=== PATIENT | female | born 1945 | race Caucasian/White ===

== ENCOUNTER 2016-06-27 03:59 | Inpatient (IN) | payer MEDICARE ==
[2016-06-27] MEDS ORDERED: IPRATROPIUM-ALBUTEROL 3 ML NEB INHALATION STA (04:19)
[2016-06-27] MEDS ORDERED: ACETAMINOPHEN TAB 325 MG TAB PO STA ×2 (05:19→06:16)
[2016-06-27] MEDS ORDERED: LEVOFLOXACIN 750MG-D5W PMX 750 MG in DEXTROSE/WATER 1 150ML.BAG IVPB STA (05:19)
--- NOTE | 2016-06-27 05:23 | ED ---
SOB HPI - General Chief Complaint: Shortness of Breath Stated Complaint: Vomiting/Dizziness/SOB Time Seen by Provider: 06/27/16 04:06 Source: patient, EMS, RN notes reviewed Mode of arrival: EMS Limitations: no limitations - History of Present Illness Initial Comments: This patient is a 70-year-old woman who presents to the emergency department tonight in the accompany of her who is giving a majority of the history as the patient may be experiencing some delirium. The patient is complaining that she feels short of breath. She states this is been going on over the course of tonight. Additional history from patient's reveals she's been having fevers intermittently since Wednesday night. This morning she also had a round of vomiting and a loose bowel movement. Patient is denying pain anywhere, but does have some dyspnea. MD Complaint: shortness of breath Onset/Timin -: days(s) Associated Symptoms: nausea/vomiting Treatments Prior to Arrival: none - Related Data Home Medications Medication Instructions Recorded Confirmed Carvedilol 12.5 mg PO BID 07/16/14 06/27/16 Citalopram Hydrobromide [CeleXA] 40 mg PO HS 07/16/14 06/27/16 Omeprazole [PriLOSEC] 20 mg PO AC-BRKFST 07/16/14 06/27/16 Spironolactone 50 mg PO BID 07/16/14 06/27/16 Torsemide [Demadex] 100 mg PO DAILY 07/16/14 06/27/16 Potassium Chloride ER [K-Dur 20] 40 meq PO DAILY 11/20/14 06/27/16 Ranitidine HCl [Zantac] 150 mg PO BID 06/27/16 06/27/16 Rivaroxaban [Xarelto] 20 mg PO DAILY 06/27/16 06/27/16 Previous Rx's Medication Instructions Recorded Acetaminophen Tab [Tylenol] 650 mg PO Q6HR PRN #0 tab 11/20/14 Baclofen 10 mg PO TID PRN #50 tab 11/20/14 ALPRAZolam [Xanax] 2 mg PO TID PRN #90 tablet 06/30/16 Cholestyramine (with Sugar) 4 gm PO BID #10 packet 06/30/16 [Questran Packet] Ertapenem [INVanz] 1 gm IVPB DAILY #12 vial 06/30/16 HYDROcodone/APAP 5-325MG [[place] 1 tab PO Q4HR PRN #90 tab 06/30/16 5-325] Lactobacillus Acidoph & [place] 1 each PO TID packet 06/30/16 [Lactinex] Allergies Allergy/AdvReac Type Severity Reaction Status Date / Time cephalexin monohydrate Allergy Rash/Hives Verified 06/27/16 10:44 [From Keflex] lisinopril Allergy Rash/Hives Verified 06/27/16 10:52 morphine Allergy Rash/Hives/ Verified 06/27/16 10:44 Sob warfarin [From Coumadin] Allergy Rash/Hives Verified 06/27/16 10:44 acetaminophen [From [place]] AdvReac Nausea & Verified 06/27/16 10:44 Vomiting codeine AdvReac Nausea & Verified 06/27/16 10:44 Vomiting hydrocodone [From [place]] AdvReac Nausea & Verified 06/27/16 10:44 Vomiting Review of Systems ROS Statement: Those systems with pertinent positive or pertinent negative responses have been documented in the HPI. ROS Other: All systems not noted in ROS Statement are negative. Limitations: ROS unobtainable due to patients medical condition Past Medical History Past Medical History: Coronary Artery Disease (CAD), GERD/Reflux Additional Past Medical History / Comment(s): OCC PSORIASIS/DRY SKIN, NOW MILD ON BOTTOM FEET.SLIGHT STRESS INCONTINENCE @ TIMES History of Any Multi-Drug Resistant Organisms: None Reported Past Surgical History: Hysterectomy Additional Past Surgical History / Comment(s): LT CAROTID ENDARTERECTOMY,AICD- [facility] IN [place] 10/02/14 TO CHECK AICD Past Anesthesia/Blood Transfusion Reactions: Motion Sickness Type of Cardiac Device: Permanent Pacemaker, AICD Device Placement Date:: 2011 Past Psychological History: No Psychological Hx Reported Smoking Status: Former smoker Past Alcohol Use History: None Reported Additional Past Alcohol Use History / Comment(s): STARTED SMOKING AGE 19(1963) AND QUIT 2003 WAS 1/2 PPD Past Drug Use History: None Reported - Past Family History Mother Family Medical History: No Reported History General Exam Limitations: no limitations General appearance: alert, in distress Head exam: Present: atraumatic, normocephalic Eye exam: Present: normal appearance. Absent: scleral icterus, conjunctival injection ENT exam: Present: mucous membranes dry Neck exam: Present: normal inspection, full ROM. Absent: tenderness, meningismus Respiratory exam: Present: respiratory distress (Mild tachypnea), rales. Absent : wheezes, rhonchi, stridor, chest wall tenderness, decreased breath sounds, prolonged expiratory Cardiovascular Exam: Present: normal rhythm, tachycardia, normal heart sounds. Absent: systolic murmur, diastolic murmur, rubs, gallop GI/Abdominal exam: Present: soft. Absent: distended, tenderness, guarding, rebound, mass Extremities exam: Present: normal inspection, normal capillary refill. Absent: pedal edema, calf tenderness Back exam: Present: normal inspection. Absent: CVA tenderness (R), CVA tenderness (L) Neurological exam: Present: alert, altered. Absent: motor sensory deficit Skin exam: Present: warm, dry, intact, normal color. Absent: rash Course Vital Signs 06/27/16 06/27/16 06/27/16 04:13 04:22 04:34 Temperature 101 F H Pulse Rate 76 87 88 Respiratory 22 Rate Blood Pressure 101/56 O2 Sat by Pulse 92 L Oximetry 06/27/16 06/27/16 06/27/16 06:19 10:00 10:25 Temperature 98.6 F 97.6 F Pulse Rate 88 67 72 Respiratory 20 16 18 Rate Blood Pressure 100/56 94/61 O2 Sat by Pulse 94 L 94 L 98 Oximetry 06/27/16 06/27/16 06/27/16 11:00 11:30 12:00 Temperature 98.2 F Pulse Rate 84 64 66 Respiratory 16 16 16 Rate Blood Pressure 99/58 101/57 101/57 O2 Sat by Pulse 91 L 94 L 94 L Oximetry 06/27/16 06/27/16 06/27/16 12:23 12:30 13:05 Temperature 97.5 F L 97.2 F L Pulse Rate 66 68 Respiratory 16 20 20 Rate Blood Pressure 102/62 102/58 O2 Sat by Pulse 91 L 96 Oximetry 06/27/16 06/27/16 06/27/16 14:32 14:37 15:25 Temperature 97.4 F L 98.7 F Pulse Rate 96 71 Respiratory 20 16 Rate Blood Pressure 119/71 100/59 O2 Sat by Pulse 97 95 Oximetry Medical Decision Making - Lab Data Result diagrams: 07/01/16 06:54 07/01/16 06:54 Lab Results 06/27/16 06/27/16 06/27/16 Range/Units 04:15 04:15 04:15 WBC 5.3 (3.8-10.6) k/uL RBC 4.17 (3.80-5.40) m/uL Hgb 12.7 (11.4-16.0) gm/dL Hct 39.1 (34.0-46.0) % MCV 94.0 (80.0-100.0) fL MCH 30.6 (25.0-35.0) pg MCHC 32.5 (31.0-37.0) g/dL RDW 12.9 (11.5-15.5) % Plt Count 203 (150-450) k/uL Neutrophils % 86 % Lymphocytes % 8 % Monocytes % 4 % Eosinophils % 1 % Basophils % 1 % Neutrophils # 4.5 (1.3-7.7) k/uL Lymphocytes # 0.4 L (1.0-4.8) k/uL Monocytes # 0.2 (0-1.0) k/uL Eosinophils # 0.0 (0-0.7) k/uL Basophils # 0.0 (0-0.2) k/uL PT (9.0-12.0) sec INR (<1.1) APTT (22.0-30.0) sec Sodium 135 L (137-145) mmol/L Potassium 3.4 L (3.5-5.1) mmol/L Chloride 101 (98-107) mmol/L Carbon Dioxide 19 L (22-30) mmol/L Anion Gap 15 mmol/L BUN 21 H (7-17) mg/dL Creatinine 1.06 H (0.52-1.04) mg/dL Est GFR (MDRD) Af Amer >60 (>60 ml/min/1.73 sqM) Est GFR (MDRD) Non-Af 52 (>60 ml/min/1.73 sqM) Glucose 124 H (74-99) mg/dL Plasma Lactic Acid Surya (0.7-2.0) mmol/L Calcium 8.5 (8.4-10.2) mg/dL Total Bilirubin 0.6 (0.2-1.3) mg/dL AST 21 (14-36) U/L ALT 25 (9-52) U/L Alkaline Phosphatase 91 (38-126) U/L Total Creatine Kinase 88 (30-135) U/L CK-MB (CK-2) 0.5 (0.0-2.4) ng/mL CK-MB (CK-2) Rel Index 0.6 Troponin I <0.012 (0.000-0.034) ng/mL Total Protein 6.4 (6.3-8.2) g/dL Albumin 3.4 L (3.5-5.0) g/dL Cortisol 31 ug/dL Urine Color Urine Appearance (Clear) Urine pH (5.0-8.0) Ur Specific [place] (1.001-1.035) Urine Protein (Negative) Urine Glucose (UA) (Negative) Urine Ketones (Negative) Urine Blood (Negative) Urine Nitrate (Negative) Urine Bilirubin (Negative) Urine Urobilinogen (<2.0) mg/dL Ur Leukocyte Esterase (Negative) Urine RBC (0-5) /hpf Urine WBC (0-5) /hpf Ur Squamous Epith Cells (0-4) /hpf Urine Bacteria (None) /hpf Hyaline Casts (0-2) /lpf Influenza Type A RNA (Not Detectd) Influenza Type B (PCR) (Not Detectd) 06/27/16 06/27/16 06/27/16 Range/Units 04:15 04:15 04:15 WBC (3.8-10.6) k/uL RBC (3.80-5.40) m/uL Hgb (11.4-16.0) gm/dL Hct (34.0-46.0) % MCV (80.0-100.0) fL MCH (25.0-35.0) pg MCHC (31.0-37.0) g/dL RDW (11.5-15.5) % Plt Count (150-450) k/uL Neutrophils % % Lymphocytes % % Monocytes % % Eosinophils % % Basophils % % Neutrophils # (1.3-7.7) k/uL Lymphocytes # (1.0-4.8) k/uL Monocytes # (0-1.0) k/uL Eosinophils # (0-0.7) k/uL Basophils # (0-0.2) k/uL PT 14.4 H (9.0-12.0) sec INR 1.5 (<1.1) APTT 32.0 H (22.0-30.0) sec Sodium (137-145) mmol/L Potassium (3.5-5.1) mmol/L Chloride (98-107) mmol/L Carbon Dioxide (22-30) mmol/L Anion Gap mmol/L BUN (7-17) mg/dL Creatinine (0.52-1.04) mg/dL Est GFR (MDRD) Af Amer (>60 ml/min/1.73 sqM) Est GFR (MDRD) Non-Af (>60 ml/min/1.73 sqM) Glucose (74-99) mg/dL Plasma Lactic Acid Surya 1.7 (0.7-2.0) mmol/L Calcium (8.4-10.2) mg/dL Total Bilirubin (0.2-1.3) mg/dL AST (14-36) U/L ALT (9-52) U/L Alkaline Phosphatase (38-126) U/L Total Creatine Kinase (30-135) U/L CK-MB (CK-2) (0.0-2.4) ng/mL CK-MB (CK-2) Rel Index Troponin I (0.000-0.034) ng/mL Total Protein (6.3-8.2) g/dL Albumin (3.5-5.0) g/dL Cortisol ug/dL Urine Color Colorless Urine Appearance Clear (Clear) Urine pH 5.5 (5.0-8.0) Ur Specific [place] 1.004 (1.001-1.035) Urine Protein Negative (Negative) Urine Glucose (UA) Negative (Negative) Urine Ketones Negative (Negative) Urine Blood Moderate H (Negative) Urine Nitrate Negative (Negative) Urine Bilirubin Negative (Negative) Urine Urobilinogen <2.0 (<2.0) mg/dL Ur Leukocyte Esterase Moderate H (Negative) Urine RBC 57 H (0-5) /hpf Urine WBC 17 H (0-5) /hpf Ur Squamous Epith Cells 3 (0-4) /hpf Urine Bacteria Occasional H (None) /hpf Hyaline Casts 1 (0-2) /lpf Influenza Type A RNA (Not Detectd) Influenza Type B (PCR) (Not Detectd) 06/27/16 06/27/16 Range/Units 06:42 10:46 WBC (3.8-10.6) k/uL RBC (3.80-5.40) m/uL Hgb (11.4-16.0) gm/dL Hct (34.0-46.0) % MCV (80.0-100.0) fL MCH (25.0-35.0) pg MCHC (31.0-37.0) g/dL RDW (11.5-15.5) % Plt Count (150-450) k/uL Neutrophils % % Lymphocytes % % Monocytes % % Eosinophils % % Basophils % % Neutrophils # (1.3-7.7) k/uL Lymphocytes # (1.0-4.8) k/uL Monocytes # (0-1.0) k/uL Eosinophils # (0-0.7) k/uL Basophils # (0-0.2) k/uL PT (9.0-12.0) sec INR (<1.1) APTT (22.0-30.0) sec Sodium (137-145) mmol/L Potassium (3.5-5.1) mmol/L Chloride (98-107) mmol/L Carbon Dioxide (22-30) mmol/L Anion Gap mmol/L BUN (7-17) mg/dL Creatinine (0.52-1.04) mg/dL Est GFR (MDRD) Af Amer (>60 ml/min/1.73 sqM) Est GFR (MDRD) Non-Af (>60 ml/min/1.73 sqM) Glucose (74-99) mg/dL Plasma Lactic Acid Surya (0.7-2.0) mmol/L Calcium (8.4-10.2) mg/dL Total Bilirubin (0.2-1.3) mg/dL AST (14-36) U/L ALT (9-52) U/L Alkaline Phosphatase (38-126) U/L Total Creatine Kinase 99 (30-135) U/L CK-MB (CK-2) 0.9 (0.0-2.4) ng/mL CK-MB (CK-2) Rel Index 0.9 Troponin I 0.015 (0.000-0.034) ng/mL Total Protein (6.3-8.2) g/dL Albumin (3.5-5.0) g/dL Cortisol ug/dL Urine Color Urine Appearance (Clear) Urine pH (5.0-8.0) Ur Specific [place] (1.001-1.035) Urine Protein (Negative) Urine Glucose (UA) (Negative) Urine Ketones (Negative) Urine Blood (Negative) Urine Nitrate (Negative) Urine Bilirubin (Negative) Urine Urobilinogen (<2.0) mg/dL Ur Leukocyte Esterase (Negative) Urine RBC (0-5) /hpf Urine WBC (0-5) /hpf Ur Squamous Epith Cells (0-4) /hpf Urine Bacteria (None) /hpf Hyaline Casts (0-2) /lpf Influenza Type A RNA Not Detected (Not Detectd) Influenza Type B (PCR) Not Detected (Not Detectd) - EKG Data -: EKG Interpreted by Me EKG shows normal: sinus rhythm (With PVCs), intervals (Normal), QRS complexes ( Low voltage QRS complex) Rate: normal (Rate 93 bpm) When compared to previous EKG there are: other (When compared with EKG from September 2014 there is poor R-wave progression) Interpretation: nonspecific ST-T wave changes Disposition Clinical Impression: Urinary tract infection, Altered mental status Disposition: ADMITTED IP TO THIS [facility] Condition: Good
[2016-06-27 05:33] LABS: CHCM 34.1; HCT 39.1 % (34.0-46.0); HDW 2.42; HGB 12.7 gm/dL (11.4-16.0); MCH 30.6 pg (25.0-35.0); MCHC 32.5 g/dL (31.0-37.0); Mean Platelet Volume 7.8; Neutrophils % (A) 86 %; RBC 4.17 m/uL (3.80-5.40); RDW 12.9 % (11.5-15.5); WBC 5.3 k/uL (3.8-10.6); WBC (Perox) 5.63
[2016-06-27 05:34] LABS: Basophils % (A) 1 %; Eosinophils % (A) 1 %; Luc # (Auto) 0.05; Luc % (Auto) 1; Lymphocytes # (A) 0.4 k/uL (1.0-4.8); Lymphocytes % (A) 8 %; Monocytes # (A) 0.2 k/uL (0-1.0); Monocytes % (A) 4 %; Neutrophils # (A) 4.5 k/uL (1.3-7.7)
[2016-06-27 05:39] LABS: Appearance,Urine Clear (Clear); Bacteria,Urine Occasional /hpf; Bilirubin,Urine Negative (Negative); Glucose,Urine (UA) Negative (Negative); Ketones,Urine Negative (Negative); Leukocyte Esterase,Urine Moderate (Negative); Nitrite,Urine Negative (Negative); PH, Urine 5.5 (5.0-8.0); Particle Count 7279; Protein,Urine Negative (Negative); RBC,Urine 57 /hpf (0-5); Specific Gravity,Urine 1.004 (1.001-1.035); Squamous Epithelial Cell,Urine 3 /hpf (0-4); UA Billing (MACRO vs. MICRO) MICRO; Urobilinogen,Urine <2.0 mg/dL (<2.0); WBC,Urine 17 /hpf (0-5)
[2016-06-27 05:42] LABS: INR 1.5 (<1.1); Prothrombin Time 14.4 sec (9.0-12.0)
[2016-06-27 05:44] LABS: ALT 25 U/L (9-52); AST 21 U/L (14-36); Alkaline Phosphatase 91 U/L (38-126); Anion Gap 15 mmol/L; Blood Urea Nitrogen 21 mg/dL (7-17); Calcium 8.5 mg/dL (8.4-10.2); Carbon Dioxide 19 mmol/L (22-30); Chloride 101 mmol/L (98-107); Glucose 124 mg/dL (74-99); Non-African American GFR(MDRD) 52 (>60 ml/min/1.73 sqM); Potassium 3.4 mmol/L (3.5-5.1); Sodium 135 mmol/L (137-145); Total Bilirubin 0.6 mg/dL (0.2-1.3); Total Protein 6.4 g/dL (6.3-8.2)
[2016-06-27 05:53] LABS: Creatine Kinase 88 U/L (30-135)
[2016-06-27 06:07] LABS: Creatine Kinase MB 0.5 ng/mL (0.0-2.4); Troponin I <0.012 ng/mL (0.000-0.034)
[2016-06-27] MEDS ORDERED: IBUPROFEN 400 MG TAB PO STA (06:16)
[2016-06-27] MEDS: SODIUM CHLORIDE 0.9% 500 ML IV SCH ×2 (06:16→12:11)
--- NOTE | 2016-06-27 06:25 | XR ---
EXAMINATION TYPE: XR chest 1V portable DATE OF EXAM: 06/27/2016 6:07 AM COMPARISON: 03/03/2012 HISTORY: Fever and cough and congestion TECHNIQUE: Single frontal view of the chest is obtained. FINDINGS: Chronic lung changes are suggested with possible chronic interstitial pulmonary fibrosis. There is mi ld pulmonary vascular congestion. There is no focal air space opacity, pleural effusion, or pneumothorax seen. There is mild cardiomeg mariann and left-sided pacemaker in place. Atherosclerotic constipation is noted in the aortic arch. The osseous structures are intact. IMPRESSION: 1. No definite focal pneumonia. 2. Chronic lung changes. 3. No significant interval change.
[2016-06-27] MEDS ORDERED: SODIUM CHLORIDE 0.9% 500 ML IV STA (08:38)
[2016-06-27] MEDS ORDERED: SODIUM CHLORIDE 0.9% 1,000 ML IV ONE (08:38)
[2016-06-27] MEDS ORDERED: NALOXONE 0.4 MG/ML 1 ML VIAL IV PRN (08:39)
[2016-06-27] MEDS ORDERED: BISACODYL 5 MG TABLET.DR PO PRN (08:44)
[2016-06-27] MEDS ORDERED: HYDROcodone/APAP 5-325MG 1 EACH TAB PO PRN ×2 (08:44→15:41)
[2016-06-27] MEDS ORDERED: BACLOFEN 10 MG TAB PO PRN (08:44)
[2016-06-27] MEDS ORDERED: WARFARIN 5 MG TAB PO SCH (09:00)
[2016-06-27 11:58] LABS: Creatine Kinase MB 0.9 ng/mL (0.0-2.4); Troponin I 0.015 ng/mL (0.000-0.034)
[2016-06-27] MEDS ORDERED: ALPRAZolam 0.5 MG TAB PO PRN (15:41)
[2016-06-27] MEDS ORDERED: RX INFO: IV CONTRAST WAS GIVEN 1 EACH MISC MISCELLANE PRN (15:57)
[2016-06-27] MEDS: SODIUM CHLORIDE 0.9% 1,000 ML IV SCH (16:23)
[2016-06-27] MEDS: IOHEXOL 350 MG/ML 25 ML BOTTLE (ORAL USE) PO PRN ×2 (16:30→17:30)
[2016-06-27] MEDS: metroNIDAZOLE-NS PMX 500 MG in SALINE 1 100ML.BAG IVPB SCH (16:31)
[2016-06-27] MEDS: TORSEMIDE 20 MG TAB PO SCH ×2 (16:32→18:35)
[2016-06-27 16:58] VITALS: BMI 26.1
[2016-06-27] MEDS ORDERED: CARVEDILOL 12.5 MG TAB PO SCH (17:30)
[2016-06-27 17:31] LABS: Creatine Kinase MB 1.8 ng/mL (0.0-2.4); Troponin I <0.012 ng/mL (0.000-0.034)
[2016-06-27 17:49] LABS: Creatine Kinase 145 U/L (30-135)
[2016-06-27] MEDS ORDERED: ALPRAZolam 0.25 MG TAB PO SCH (18:00)
[2016-06-27] MEDS: RIVAROXABAN 10 MG TAB PO SCH (18:32)
[2016-06-27] MEDS: SPIRONOLACTONE 25 MG TAB PO SCH (18:33)
--- NOTE | 2016-06-27 19:40 | HP ---
DATE OF ADMISSION: 06/27/2016 PRINCIPAL DIAGNOSES: Urinary tract infection acute. HISTORY OF PRESENT ILLNESS: This is a 70-year-old female patient who presented to the emergency department secondary to change in mental status. Her noticed that she was becoming somewhat confused. On examination, she was found to have a urinary tract infection and has been started on Levaquin IV piggyback. She denies any urgency but states she has some frequency and no dysuria. She also had vomiting and diarrhea for 2 days she has associated left lower quadrant tenderness. She is seen lying in bed. She is in no acute distress at this time. She is awake, alert, and oriented. Able to participate in 2-way conversation. Her is present at the bedside during our examination. She is seen in the emergency department at this time. REVIEW OF SYSTEMS: Patient denies seizures, syncope, or loss of consciousness. Denies diplopia or visual disturbances. Denies dysphagia. Denies shortness of breath. States cough today with phlegm of undetermined color. Denies wheeze. Denies chest pain, angina, or palpitations. States abdominal pain in the left lower quadrant with vomiting and diarrhea. Denies constipation and denies dysuria or urinary retention. States frequency. Denies fever or chills. PAST MEDICAL HISTORY: Hypotension, gastroesophageal reflux disease, coronary artery disease, carotid stenosis and cardiomyopathy. PAST SURGICAL HISTORY: AICD placement, left carotid bypass surgery, (not carotid endarterectomy), appendectomy, hysterectomy with bilateral salpingo-oophorectomy. SOCIAL HISTORY: Patient is . She is a former smoker, smoked for 40 years, quit in 2003. Denies ETOH or illicit drug use. FAMILY HISTORY: Parents are from old age. Patient has 2 children who are alive and well. ALLERGIES: KEFLEX, LISINOPRIL, MORPHINE, COUMADIN, NORCO, CODEINE. HOME MEDICATIONS: 1. Demadex 100 mg daily. 2. Spironolactone 50 b.i.d. 3. Xarelto 20 daily. 4. Zantac 150 b.i.d. 5. K-Dur 40 mEq daily. 6. Prilosec 20 with breakfast. 7. [place] 5/325 q.4 hours p.r.n. 8. Celexa 40 mg at bedtime. 9. Coreg 12.5 mg b.i.d. 10. Baclofen 10 mg t.i.d. p.r.n. 11. Tylenol 650 q.6 hours p.r.n. 12. Xanax 2 mg t.i.d. p.r.n. PHYSICAL EXAMINATION: VITAL SIGNS: Temperature is 97.7, heart rate 71, respiratory rate 16, blood pressure 100/59, pulse oximetry is 95% on 4 liters. GENERAL: Patient is seen lying in bed in the emergency department in no acute distress. HEENT: Head is normocephalic, atraumatic. Pupils equal. Conjunctivae clear. NECK: Supple, no JVD. LUNGS: Clear to auscultation. No wheeze, rales, rhonchi appreciated. HEART: Regular rate and rhythm with a 2/6 systolic murmur. ABDOMEN: Soft, tender to the left lower quadrant, nondistended. Bowel sounds are active. EXTREMITIES: No lower extremity edema is noted. Pedal pulses are palpable. NEUROLOGICAL: The patient is alert and oriented x3. Speech is clear, interactive and appropriate. No tremors noted. LABS: Sodium is 135, potassium 3.4, BUN is 21, creatinine is 1.06. WBC count is 5.3, hemoglobin 12.7, platelet count is 203. Shows moderate amount of blood with moderate leukocytes and occasional bacteria, influenza A and B are negative. DIAGNOSTIC TESTS: Chest x-ray shows no definite focal pneumonia, chronic lung changes noted. IMPRESSION: 1. Acute urinary tract infection. Continue with gentle hydration with sodium chloride at 75 mL an hour. 2. Abdominal pain with 2 day history of vomiting and diarrhea. Will get CT of the abdomen and pelvis. The patient may have an episode of diverticulitis. Continue with Levaquin, will add Flagyl. 3. Cardiomyopathy with history of AICD placement. The patient follows with a pocket maker out of town. Continue with cardiac medications. 4. Gastroesophageal reflux disease, continue with Protonix and Pepcid. 5. Deep venous thrombosis prophylaxis. The patient is already on Xarelto. The patient will be admitted to the medical unit for IV antibiotic therapy. We will reevaluate her in the morning. Get CAT scan of the abdomen and pelvis make further recommendations at that time. I performed a history and physical examination of this patient and discussed the same with the dictator. I agree with the dictator's note. Any additional findings/opinions, etc. will be noted.
[2016-06-27] MEDS: CITALOPRAM HYDROBROMIDE 20 MG TAB PO SCH (20:33)
[2016-06-27] MEDS: ACETAMINOPHEN TAB 325 MG TAB PO PRN (20:34)
[2016-06-27] MEDS: FAMOTIDINE 20 MG TAB PO SCH (20:34)
[2016-06-27] MEDS ORDERED: NON-FORMULARY DRUG (Ranitidine Hcl [Zantac] 150 MG) PO SCH (21:00)
--- NOTE | 2016-06-27 21:01 | CT ---
EXAMINATION TYPE: CT abdomen pelvis w con DATE OF EXAM: 06/27/2016 6:18 PM COMPARISON: NONE INDICATION: Nausea and diarrhea x couple weeks. DLP: 1243.00 mGycm, Automated exposure control for dose reduction was used. CONTRAST: 80 mL of Visipaque 320. Study performed with Oral Contrast TECHNIQUE: Axial images were obtained from above the diaphragm to the pubic rami in the axial plane a t 5 mm thick sections. Reconstructed images are reviewed on the computer in the coronal plane. FINDINGS: Limited CT sections are obtained the lung bases. Streak opacities at the bilateral lung bases, likel y on the basis of atelectasis.. CT ABDOMEN: Liver: Tiny cyst may be within the right lobe liver. Liver otherwise appears unremarkable. Spleen: Unremarkable. Pancreas: Normal Adrenal glands: The adrenal glands are normal. Gallbladder: Normal Kidneys: No masses are evident. No hydronephrosis is present. No cysts are present. Delayed images were obtained through the kidneys, which remain unremarkable. Aorta: Vascular calcification is within the aorta. Inferior vena cava: Normal. CT PELVIS: Loops of bowel within the abdomen and pelvis are normal. Study is performed with oral contrast. T here are loops of bowel lacking oral contrast limiting their evaluation. There are scattered divertic nicole within the proximal sigmoid colon. Suspicious inflammatory changes are not identified. Appendix: Not identified Urinary bladder: Thickened urinary bladder blanca. This could be due to incomplete distention. Conside r additional workup. Genitourinary structures: Uterus is not identified. Adnexal regions are unremarkable. Osseous structures: No suspicious lytic or sclerotic lesions. IMPRESSIONS: 1. Diverticulosis. No acute diverticulitis is identified. 2. Thickened urinary bladder blanca. Acute cystitis could be considered. This may be incompletely dist ended. Other etiologies should be considered. Consider additional workup.
[2016-06-28] MEDS: metroNIDAZOLE-NS PMX 500 MG in SALINE 1 100ML.BAG IVPB SCH ×3 (00:06→16:27)
[2016-06-28 05:41] LABS: Basophils % (A) 1 %; CH 31.6; CHCM 32.9; Eosinophils % (A) 1 %; HCT 36.9 % (34.0-46.0); HDW 2.48; HGB 11.7 gm/dL (11.4-16.0); Luc # (Auto) 0.19; Luc % (Auto) 3; Lymphocytes # (A) 0.9 k/uL (1.0-4.8); Lymphocytes % (A) 16 %; MCH 30.7 pg (25.0-35.0); MCHC 31.9 g/dL (31.0-37.0); MCV 96.4 fL (80.0-100.0); Mean Platelet Volume 7.5; Monocytes # (A) 0.4 k/uL (0-1.0); Monocytes % (A) 8 %; Neutrophils # (A) 4.1 k/uL (1.3-7.7); Neutrophils % (A) 73 %; RBC 3.82 m/uL (3.80-5.40); RDW 13.1 % (11.5-15.5); WBC 5.7 k/uL (3.8-10.6); WBC (Perox) 5.86
[2016-06-28 06:06] LABS: Anion Gap 10 mmol/L; Blood Urea Nitrogen 9 mg/dL (7-17); Calcium 8.6 mg/dL (8.4-10.2); Carbon Dioxide 18 mmol/L (22-30); Chloride 109 mmol/L (98-107); Glucose 90 mg/dL (74-99); Non-African American GFR(MDRD) >60 (>60 ml/min/1.73 sqM); Potassium 3.3 mmol/L (3.5-5.1); Sodium 137 mmol/L (137-145)
[2016-06-28] MEDS: PANTOPRAZOLE 40 MG TABLET PO SCH (07:57)
[2016-06-28] MEDS: CARVEDILOL 12.5 MG TAB PO SCH ×2 (07:57→17:38)
[2016-06-28] MEDS: SODIUM CHLORIDE 0.9% 1,000 ML IV SCH (08:59)
[2016-06-28] MEDS: FAMOTIDINE 20 MG TAB PO SCH ×2 (09:02→21:06)
[2016-06-28] MEDS: POTASSIUM CHLORIDE ER 20 MEQ TAB.ER PO SCH (09:02)
[2016-06-28] MEDS: TORSEMIDE 20 MG TAB PO SCH (09:03)
[2016-06-28] MEDS ORDERED: Potassium Replacement Protocol 1 EACH MISC MISCELLANE PRN (09:26)
[2016-06-28] MEDS ORDERED: ONDANSETRON 4 MG/2 ML VIAL IVP PRN (09:26)
[2016-06-28] MEDS: LEVOFLOXACIN 500MG-D5W PMX 500 MG in DEXTROSE/WATER 1 100ML.BAG IVPB SCH (10:45)
[2016-06-28] MEDS: PHENAZOPYRIDINE 200 MG TAB PO SCH ×3 (11:05→21:06)
[2016-06-28] MEDS: POTASSIUM CHLORIDE 10 MEQ, LIDOCAINE 2% INJ 10 MG in SODIUM CHLORIDE 0.9% 100 ML IV SCH ×2 (12:13→13:50)
[2016-06-28] MEDS: IPRATROPIUM-ALBUTEROL 3 ML NEB INHALATION SCH ×2 (12:18→21:07)
--- NOTE | 2016-06-28 14:53 | PN ---
HISTORY OF PRESENT ILLNESS: This is a 70-year-old female patient who presented in the ER secondary to confusion and urinary frequency. The patient was found to have early sepsis with a urinary tract infection and she was admitted to the medical unit for IV antibiotic therapy last night. She was febrile, blood cultures still show no growth, awaiting urine culture results. CAT scan of the abdomen and pelvis was performed secondary to left lower quadrant tenderness. It did not show any evidence of active diverticulitis. She still has ongoing diarrhea and is being checked for Clostridium difficile. We will continue with Levaquin and Flagyl for now. Antipyretics and antiemetics as needed. She is seen sitting up in bed. She is awake, alert, and oriented. PHYSICAL EXAMINATION: VITAL SIGNS: Temperature is 101.0, heart rate is 85, respiratory rate is 20, blood pressure 106/70, pulse oximetry is 95% on room air. GENERAL: Patient is seen sitting up in bed in no acute distress. LUNGS: Clear to auscultation, diminished posterior at the bases. No wheeze, rales, rhonchi appreciated. HEART: Regular rate and rhythm. S1, S2 are heard. Abdomen is soft, tender to left lower quadrant, nondistended. Bowel sounds are positive. EXTREMITIES: No lower extremity was noted. NEURO: Patient is alert and oriented x3. LABS: Sodium is 137, potassium is 3.3, BUN is 9, creatinine is 0.80. WBC count is 5.7, hemoglobin is 11.7, platelet count is 181. IMPRESSION: 1. Early sepsis with urinary tract infection. Continue with gentle hydration and IV antibiotics. Awaiting blood and urine cultures. Will add Pyridium for urinary symptom including burning and frequency. 2. Abdominal pain with ongoing diarrhea. No vomiting today but the patient remains nauseated at times. CT the abdomen and pelvis was negative. Will check Clostridium difficile, place the patient in isolation and continue with Levaquin and Flagyl for now. 3. Cardiomyopathy with history of AICD placement. The patient follows with a cost estimating manager out of town. Continue with cardiac medications. 4. Gastroesophageal reflux disease. Continue Protonix and Pepcid. 5. Deep venous thrombosis prophylaxis with Xarelto.
[2016-06-28] MEDS: AZTREONAM 2 GM in SODIUM CHLORIDE 0.9% 100 ML IVPB SCH (17:35)
[2016-06-28] MEDS: RIVAROXABAN 10 MG TAB PO SCH (17:39)
[2016-06-28] MEDS: SPIRONOLACTONE 25 MG TAB PO SCH (17:40)
[2016-06-28] MEDS: CHOLESTYRAMINE (WITH SUGAR) 4 GM PACKET PO SCH (21:06)
[2016-06-28] MEDS: CITALOPRAM HYDROBROMIDE 20 MG TAB PO SCH (21:07)
[2016-06-28] MEDS: ACETAMINOPHEN TAB 325 MG TAB PO PRN (21:36)
[2016-06-29] MEDS: SODIUM CHLORIDE 0.9% 1,000 ML IV SCH (03:20)
[2016-06-29] MEDS: AZTREONAM 2 GM in SODIUM CHLORIDE 0.9% 100 ML IVPB SCH (05:40)
[2016-06-29] MEDS: ACETAMINOPHEN TAB 325 MG TAB PO PRN ×2 (06:10→13:33)
[2016-06-29 07:35] LABS: Basophils % (A) 1 %; CH 31.3; CHCM 32.9; Eosinophils # (A) 0.1 k/uL (0-0.7); Eosinophils % (A) 1 %; HCT 36.3 % (34.0-46.0); HDW 2.61; HGB 11.7 gm/dL (11.4-16.0); Luc # (Auto) 0.16; Luc % (Auto) 4; Lymphocytes # (A) 0.9 k/uL (1.0-4.8); Lymphocytes % (A) 22 %; MCH 30.6 pg (25.0-35.0); MCHC 32.1 g/dL (31.0-37.0); MCV 95.3 fL (80.0-100.0); Mean Platelet Volume 7.9; Monocytes # (A) 0.4 k/uL (0-1.0); Monocytes % (A) 10 %; Neutrophils # (A) 2.7 k/uL (1.3-7.7); Neutrophils % (A) 63 %; RBC 3.81 m/uL (3.80-5.40); RDW 13.1 % (11.5-15.5); WBC 4.3 k/uL (3.8-10.6); WBC (Perox) 4.38
[2016-06-29] MEDS: IPRATROPIUM-ALBUTEROL 3 ML NEB INHALATION SCH ×3 (07:50→20:47)
[2016-06-29 07:56] LABS: Anion Gap 9 mmol/L; Blood Urea Nitrogen 6 mg/dL (7-17); Calcium 8.4 mg/dL (8.4-10.2); Carbon Dioxide 23 mmol/L (22-30); Chloride 105 mmol/L (98-107); Glucose 92 mg/dL (74-99); Non-African American GFR(MDRD) 58 (>60 ml/min/1.73 sqM); Potassium 3.2 mmol/L (3.5-5.1); Sodium 137 mmol/L (137-145)
[2016-06-29] MEDS: CARVEDILOL 12.5 MG TAB PO SCH ×2 (07:59→19:54)
[2016-06-29] MEDS: PANTOPRAZOLE 40 MG TABLET PO SCH (07:59)
[2016-06-29] MEDS: LEVOFLOXACIN 500MG-D5W PMX 500 MG in DEXTROSE/WATER 1 100ML.BAG IVPB SCH (09:02)
[2016-06-29] MEDS: POTASSIUM CHLORIDE ER 20 MEQ TAB.ER PO SCH ×5 (09:04→15:28)
[2016-06-29] MEDS: PHENAZOPYRIDINE 200 MG TAB PO SCH ×3 (11:17→21:24)
[2016-06-29] MEDS: TORSEMIDE 20 MG TAB PO SCH (11:20)
[2016-06-29] MEDS: FAMOTIDINE 20 MG TAB PO SCH (11:21)
[2016-06-29] MEDS: CHOLESTYRAMINE (WITH SUGAR) 4 GM PACKET PO SCH ×2 (11:27→21:24)
--- NOTE | 2016-06-29 12:26 | CONS ---
DATE OF CONSULTATION: 06/28/2016 Reason for consultation is urinary tract infection and multiple ANTIBIOTIC ALLERGIES. HISTORY OF PRESENT ILLNESS: The patient is a 70 -year-old female who was brought in to the ER by her with concern for mental status changes. Apparently, her symptoms have been going on for the last day or two. The patient seemed to have intermittent fever since Wednesday night and some shortness of breath. The patient did have an episode of vomiting, loose bowel movements prior to coming to the hospital but no significant pain. Subsequently evaluated by the ER physician. The patient did have CT of the abdomen and pelvis that was done with contrast which showed diverticulosis and no diverticulitis and status could be considered. The patient did have a fever of 101 degrees Fahrenheit on arrival to the ER though white count not significantly elevated. The patient has been started on the Levaquin and Flagyl. Because of MULTIPLE ANTIBIOTIC ALLERGIES, I was asked to see the patient for further recommendation regarding antibiotics. The patient is back to her baseline mentation. She knows that she is in the hospital. The patient denies having any headache. Denies having any urinary symptoms. Denies having any chest pain or shortness of breath, cough. No abdominal pain. She did have some main symptom of burning and some hematuria but denies any significant with no flank pain. Did have stool culture for C. difficile was checked which came back negative. REVIEW OF SYSTEMS: CONSTITUTIONAL: Positive for weakness and a fever. EYES: No complaint. ENT: No complaint. RESPIRATORY: No complaint. CARDIOVASCULAR: No complaint. GENITOURINARY: As per HPI. GASTROINTESTINAL: As per HPI. MUSCULOSKELETAL: No complaint. INTEGUMENTARY: No complaint. PSYCHOLOGICAL: No complaint. ENDOCRINE: No complaint. NEUROLOGIC: No complaint. Past medical history significant for coronary artery disease, hypertension, and gastroesophageal reflux disease and cardiomyopathy. Past surgical history: Left coronary artery bypass grafting surgery, appendectomy, AICD placement, hysterectomy. SOCIAL HISTORY: The patient is . About a 40 pack year history of smoking; quit back in 2003. No drinking or any drug use. FAMILY HISTORY: Both parents of old age. ALLERGIES: KEFLEX AND NOT SURE THE TYPE OF REACTION SHE HAS TO KEFLEX, LISINOPRIL, MORPHINE, COUMADIN AND CODEINE. Medications currently include the patient is on: 1. Tylenol. 2. [place]. 3. DuoNeb. 4. Xanax. 5. Baclofen. 6. Dulcolax. 7. Coreg. 8. Celexa. 9. Pepcid. 10. Levaquin. 11. Flagyl. 12. Narcan. 13. Zofran. 14. Protonix. 15. Pyridium. 16. K-Dur. 17. Xarelto. 18. Aldactone. On examination, blood pressure is 100/58 with a pulse of 76, temperature 97.1. She is 91% on room air. General description is an elderly female lying in bed in no distress. No tachypnea or accessory muscle of respiration use. HEENT examination no pallor or scleral icterus. Oral mucosal membranes dry. NECK: Trachea central, no thyromegaly. LUNGS: Unlabored breathing. Clear to auscultation anteriorly. HEART: S1, S2 regular rate and rhythm. ABDOMEN: Soft. Minimal tenderness. No guarding or rigidity. No organomegaly. EXTREMITIES: No edema of the feet. SKIN: No rash or mass palpable. NEUROLOGICAL: Patient awake, alert, and oriented times three. Mood and affect normal. LABS: Hemoglobin is 11.7, white count 5.7 with a BUN of 9, creatinine 0.90. Stool for C. dif negative. PCR negative. Blood culture negative. Urine showed a gram-negative. DIAGNOSTIC IMPRESSION AND PLAN: 1. Patient admitted to the hospital with mental status changes and fever with urinary symptoms and positive UA and urine now showing a gram-negative more likely A gram-negative urinary tract infection from enteric pathogen in a patient who seems to be not on any antibiotics in the recent past could be a sensitive pathogen. 2. Patient does have a KEFLEX ALLERGY that will limit the number of antibiotics that can be safely used. However, the patient was not sure about the type of reaction she has with Cephalexin, at one time she says nausea but denied it. PLAN: 1. The patient will continue on Levaquin 500mg q.24 hours. 2. Discontinue Flagyl as stool for C. difficile is negative and we will add Questran for symptomatic relief and toxin binding. 3. Will follow up on the clinical condition and cultures to further adjust the medication if needed. Thank you for this consultation. Will follow this patient along with you. LARS
[2016-06-29] MEDS: ERTAPENEM 1 GM in SODIUM CHLORIDE 0.9% 50 ML IVPB SCH (12:44)
[2016-06-29] MEDS ORDERED: Potassium Replacement Protocol 1 EACH MISC MISCELLANE PRN (12:44)
--- NOTE | 2016-06-29 15:29 | P.PN ---
Subjective This is a 70-year-old female. Her primary care physician is Dr. Basil Crowell. She has a past medical history of hypotension, gastroesophageal reflux disease, coronary artery disease, carotid stenosis and cardiomyopathy status post AICD. Patient presented to [facility] emergency center due to change in mental status. noticed that she was becoming somewhat confused. She was found to have a urinary tract infection and started on Lev[facility] but she has had some frequency. No dysuria. She had vomiting and diarrhea for 2 days with left lower quadrant tenderness. Her symptoms have improved. Urine culture has returned back E. coli ESBL and antibiotics changed to Invanz by Dr. Pablo. IV fluids will be changed to saline lock. Patient known to have frequent PVCs with pacer rhythm. Cardiology consult requested. Potassium will be replaced. Magnesium level is normal. C. difficile toxin was negative. Objective - Vital Signs Vital signs: Vital Signs Temp 97.5 F L 06/29/16 11:24 Pulse 72 06/29/16 12:30 Resp 16 06/29/16 11:24 BP 104/57 06/29/16 11:24 Pulse Ox 93 L 06/29/16 11:24 Intake & Output 06/28/16 06/29/16 06/29/16 18:59 06:59 18:59 Intake Total 720 900 650 Output Total 2000 2 2300 Balance -1280 898 -1650 Weight 71.214 kg Intake: Oral 720 900 650 Output: Urine 2000 1 2300 Stool 1 Other: Voiding Method Toilet Toilet # Voids 2 2 - Exam Gen: This is a 70-year-old female. HEENT: Head is atraumatic, normocephalic. Pupils equal, round. Sclerae is anicteric. NECK: Supple. No JVD. No lymphadenopathy. No thyromegaly. LUNGS: Clear to auscultation. No wheezes or rhonchi. No intercostal retractions. HEART: Regular rate and rhythm. No murmur. ABDOMEN: Soft. Bowel sounds are present. No masses. Minimal tenderness. EXTREMITIES: No pedal edema. No calf tenderness. NEUROLOGICAL: Patient is awake, alert and oriented x3. Cranial nerves 2 through 12 are grossly intact. - Labs CBC & Chem 7: 06/29/16 06:45 06/29/16 06:45 Labs: Abnormal Lab Results - Last 24 Hours (Table) 06/29/16 06/29/16 Range/Units 06:45 06:45 Lymphocytes # 0.9 L (1.0-4.8) k/uL Potassium 3.2 L (3.5-5.1) mmol/L BUN 6 L (7-17) mg/dL Assessment and Plan Plan: 1. Urinary tract infection with sepsis with metabolic encephalopathy. IV fluids will be discontinued. IV antibiotics changed to Invanz. Consult with Dr Pablo appreciated. PICC line will be ordered for home IV antibiotics. Continue Pyridium 2. Abdominal pain with diarrhea. Continue Questran. C. difficile toxin negative. 3. Cardiomyopathy status post AICD placement. 4. Frequent PVCs. Potassium replaced. Recheck potassium in the morning. Cardiology consult requested. 5. History of carotid stenosis. Continue Xarelto. 6. Gastrointestinal prophylaxis. Continue Protonix and Pepcid 7. DVT prophylaxis. Continue Xarelto. Discharge plan: Home with IV antibiotics the next 24-48 hours. Impression and plan of care have been directed as dictated by the signing physician. Nancy Olivera nurse practitioner acting as scribe for signing physician. Time with Patient: Greater than 30
[2016-06-29] MEDS: RIVAROXABAN 10 MG TAB PO SCH (20:19)
[2016-06-29] MEDS: SPIRONOLACTONE 25 MG TAB PO SCH (20:23)
[2016-06-29] MEDS: CITALOPRAM HYDROBROMIDE 20 MG TAB PO SCH (21:24)
[2016-06-29] MEDS: FLUCONAZOLE 150 MG TAB PO SCH (21:24)
[2016-06-30] MEDS: SODIUM CHLORIDE 0.9% 1,000 ML IV SCH ×2 (02:20→04:42)
[2016-06-30 07:13] LABS: Basophils % (A) 1 %; CH 31.5; CHCM 33.3; Eosinophils # (A) 0.1 k/uL (0-0.7); Eosinophils % (A) 1 %; HCT 41.1 % (34.0-46.0); HDW 2.61; HGB 13.3 gm/dL (11.4-16.0); Luc # (Auto) 0.22; Luc % (Auto) 4; Lymphocytes # (A) 1.1 k/uL (1.0-4.8); Lymphocytes % (A) 22 %; MCH 30.8 pg (25.0-35.0); MCHC 32.4 g/dL (31.0-37.0); Mean Platelet Volume 6.7; Monocytes # (A) 0.4 k/uL (0-1.0); Monocytes % (A) 7 %; Neutrophils # (A) 3.4 k/uL (1.3-7.7); Neutrophils % (A) 65 %; RBC 4.33 m/uL (3.80-5.40); RDW 13.1 % (11.5-15.5); WBC 5.1 k/uL (3.8-10.6); WBC (Perox) 5.65
[2016-06-30 07:22] LABS: Anion Gap 11 mmol/L; Blood Urea Nitrogen 7 mg/dL (7-17); Calcium 9.2 mg/dL (8.4-10.2); Carbon Dioxide 22 mmol/L (22-30); Chloride 106 mmol/L (98-107); Glucose 100 mg/dL (74-99); Non-African American GFR(MDRD) 52 (>60 ml/min/1.73 sqM); Potassium 4.2 mmol/L (3.5-5.1); Sodium 139 mmol/L (137-145)
[2016-06-30] MEDS: CARVEDILOL 12.5 MG TAB PO SCH ×2 (08:37→17:50)
[2016-06-30] MEDS: PANTOPRAZOLE 40 MG TABLET PO SCH (08:38)
[2016-06-30] MEDS: PHENAZOPYRIDINE 200 MG TAB PO SCH ×3 (08:39→23:08)
[2016-06-30] MEDS: POTASSIUM CHLORIDE ER 20 MEQ TAB.ER PO SCH (08:40)
[2016-06-30] MEDS: TORSEMIDE 20 MG TAB PO SCH (08:41)
--- NOTE | 2016-06-30 08:44 | PN ---
DATE OF SERVICE: 06/29/2016 Reason for followup is urinary tract infection. INTERVAL HISTORY: The patient did spike another fever last night. The patient though denies having any chest pain, shortness of breath, cough. No nausea or vomiting and diarrhea has improved. On examination, blood pressure 121/78 with a pulse of 70, temperature 97.3. She is 92% on room air. General description is an elderly female lying in bed in bed in no distress. RESPIRATORY SYSTEM: Unlabored breathing. Clear to auscultation anteriorly. HEART: S1, S2. Regular rate and rhythm. ABDOMEN: Soft. No tenderness. LABS: Hemoglobin is 11.7, white count 4.3 with a BUN of 6 and creatinine 0.95. Stool for C. difficile is negative. Urine is finalized with ESBL E. coli. DIAGNOSTIC IMPRESSION AND PLAN: Patient with ESBL Escherichia coli urinary tract infection. Antibiotic will be adjusted to Invanz 1 gram IV daily. Discontinue the Levaquin and Azactam. The patient will need a PICC line for outpatient IV antibiotic therapy. Continue supportive care.
[2016-06-30] MEDS: IPRATROPIUM-ALBUTEROL 3 ML NEB INHALATION SCH ×3 (09:22→20:35)
[2016-06-30] MEDS: ERTAPENEM 1 GM in SODIUM CHLORIDE 0.9% 50 ML IVPB SCH (10:47)
[2016-06-30] MEDS: CHOLESTYRAMINE (WITH SUGAR) 4 GM PACKET PO SCH ×2 (10:51→23:09)
--- NOTE | 2016-06-30 11:40 | XR ---
EXAMINATION TYPE: XR shoulder complete LT DATE OF EXAM: 06/30/2016 11:35 AM COMPARISON: NONE HISTORY: Pain The osseous structures are intact. There is no acute fracture or dislocation. Cardiac device is inc identally noted. There is diffuse osteopenia and narrowing of the AC joint. IMPRESSION: 1. Mild AC joint arthropathy 2. Diffuse osteopenia.
--- NOTE | 2016-06-30 13:35 | IR ---
EXAMINATION TYPE: IR cvc insert >=5 years DATE OF EXAM: 06/30/2016 10:00 AM COMPARISON: NONE CLINICAL HISTORY: Urinary tract infection Needs long-term intravenous access for antibiotics. PROCEDURE: After informed consent, the skin overlying the right basilic vein was localized with ultrasound and n oted to be compressible and patent. An ultrasound image was obtained and submitted on the patient's chart. The overlying skin was prepped and draped and Lidocaine was used for local anesthesia. A ski n ed was made with a scalpel. Access was gained to the vein under ultrasound guidance with a 21 ga uge needle and a 0.018 inch wire was advanced. Access site was dilated with Peel-Away sheath and cat heter tailored to the appropriate length and advanced such that the distal tip is at the cavoatrial j unction. Spot image was obtained verifying placement. Catheter was fixed to the skin with suture an d a sterile dressing was placed following hemostasis. Catheter was aspirated and flushed with saline . Patient was discharged in stable condition without complication.Maximal barrier technique is utili zed. Ultrasound image is documented on the chart. Ultrasound used with sterile technique. Fluoro time and fluoroscopic images submitted to document procedure: 19 intraoperative C-arm images, 0.6 minutes fluoroscopy time IMPRESSION: STATUS POST ULTRASOUND AND FLUOROSCOPIC GUIDED PICC LINE PLACEMENT, READY FOR USE. THIS PROCEDURE WAS PERFORMED BY THE UNDERSIGNED.
--- NOTE | 2016-06-30 15:23 | P.PN ---
Subjective This is a 70-year-old female. Her primary care physician is Dr. Basil Crowell. She has a past medical history of hypotension, gastroesophageal reflux disease, coronary artery disease, carotid stenosis and cardiomyopathy status post AICD. Patient presented to [facility] emergency center due to change in mental status. noticed that she was becoming somewhat confused. She was found to have a urinary tract infection and started on Lev[facility]quin [facility] having any urgency but she has had some frequency. No dysuria. She had vomiting and diarrhea for 2 days with left lower quadrant tenderness. Her symptoms have improved. Urine culture has returned back E. coli ESBL and antibiotics changed to Invanz by Dr. Pablo. IV fluids will be changed to saline lock. Patient known to have frequent PVCs with pacer rhythm. Cardiology consult requested. Potassium will be replaced. Magnesium level is normal. C. difficile toxin was negative. 06/30: Patient has had a PICC line inserted. Dr. Pablo has recommended 12 more days of ertapenem. PT and OT have been requested as patient had a fall last night in the bathroom and landed on her left shoulder. This shows mild before meals joint arthropathy and diffuse osteopenia. Patient will be planned for discharge to subacute rehab tomorrow. Objective - Vital Signs Vital signs: Vital Signs Temp 98.2 F 06/30/16 08:40 Pulse 76 06/30/16 13:12 Resp 16 06/30/16 08:40 BP 111/74 06/30/16 08:40 Pulse Ox 91 L 06/30/16 08:40 Intake & Output 06/29/16 06/30/16 06/30/16 18:59 06:59 18:59 Intake Total 1610 400 Output Total 3545 2 Balance -1934 -2 400 Weight 71.214 kg Intake: Oral 1610 400 Output: Urine 3545 Stool 2 Other: Voiding Method Toilet # Voids 1 1 1 # Bowel Movements 1 1 1 - Exam Gen: This is a 70-year-old female. HEENT: Head is atraumatic, normocephalic. Pupils equal, round. Sclerae is anicteric. NECK: Supple. No JVD. No lymphadenopathy. No thyromegaly. LUNGS: Clear to auscultation. No wheezes or rhonchi. No intercostal retractions. HEART: Regular rate and rhythm. No murmur. ABDOMEN: Soft. Bowel sounds are present. No masses. Minimal tenderness. EXTREMITIES: No pedal edema. No calf tenderness. NEUROLOGICAL: Patient is awake, alert and oriented x3. Cranial nerves 2 through 12 are grossly intact. - Labs CBC & Chem 7: 06/30/16 06:48 06/30/16 06:48 Labs: Abnormal Lab Results - Last 24 Hours (Table) 06/30/16 Range/Units 06:48 Creatinine 1.06 H (0.52-1.04) mg/dL Glucose 100 H (74-99) mg/dL Assessment and Plan Plan: 1. Urinary tract infection with sepsis with metabolic encephalopathy. IV fluids will be discontinued. IV antibiotics changed to Invanz. Consult with Dr Pablo appreciated. PICC line will be ordered for home IV antibiotics. Continue Pyridium 2. Abdominal pain with diarrhea. Continue Questran. C. difficile toxin negative. 3. Cardiomyopathy status post AICD placement. 4. Frequent PVCs. Potassium replaced. Recheck potassium in the morning. Cardiology consult requested. 5. History of carotid stenosis. Continue Xarelto. 6. Gastrointestinal prophylaxis. Continue Protonix and Pepcid 7. DVT prophylaxis. Continue Xarelto. Discharge plan: Subacute rehab in the morning. Impression and plan of care have been directed as dictated by the signing physician. Nancy Olivera nurse practitioner acting as scribe for signing physician. Time with Patient: Greater than 30
--- NOTE | 2016-06-30 15:25 | P.DS ---
Providers Date of admission: 06/27/16 14:58 Expected date of discharge: 07/01/16 Attending physician: John Henderson Consults: 06/28/16 09:29 Consult Physician Routine Consulting Provider: Sam Pablo Consult Reason/Comments: cystitis Do you want consulting provider notified?: Yes 06/29/16 12:46 Consult Physician Routine Consulting Provider: Tino Merino Consult Reason/Comments: PVCs Do you want consulting provider notified?: Yes Primary care physician: Basil Crowell [facility] Course: This is a 70-year-old female. Her primary care physician is Dr. Basil Crowell. She has a past medical history of hypotension, gastroesophageal reflux disease, coronary artery disease, carotid stenosis and cardiomyopathy status post AICD. Patient presented to [facility] emergency center due to change in mental status. noticed that she was becoming somewhat confused. She was found to have a urinary tract infection and started on Lev[facility] but she has had some frequency. No dysuria. She had vomiting and diarrhea for 2 days with left lower quadrant tenderness. Her symptoms have improved. Urine culture has returned back E. coli ESBL and antibiotics changed to Invanz by Dr. Pablo. IV fluids will be changed to saline lock. Patient known to have frequent PVCs with pacer rhythm. Cardiology consult requested. Potassium will be replaced. Magnesium level is normal. C. difficile toxin was negative. 06/30: Repeat potassium is 4.2.Patient has had a PICC line inserted. Dr. Pablo has recommended 12 more days of ertapenem. PT and OT have been requested as patient had a fall last night in the bathroom and landed on her left shoulder. This shows mild before meals joint arthropathy and diffuse osteopenia. Patient will be planned for discharge to subacute rehab. Discharge diagnoses: 1. E. coli urinary tract infection with sepsis with metabolic encephalopathy. 2. Abdominal pain with diarrhea. 3. Cardiomyopathy status post AICD placement. 4. Frequent PVCs possibly due to hypokalemia 5. History of carotid stenosis. Discharge plan: [facility] [place] of the care of Dr. Mccullough Impression and plan of care have been directed as dictated by the signing physician. Nancy Olivera nurse practitioner acting as scribe for signing physician. Patient Condition at Discharge: Good Plan - Discharge Summary New Discharge Prescriptions: ALPRAZolam [Xanax] 2 mg PO TID PRN #90 tablet PRN Reason: Anxiety Ertapenem [INVanz] 1 gm IVPB DAILY #12 vial HYDROcodone/APAP 5-325MG [[place] 5-325] 1 tab PO Q4HR PRN #90 tab PRN Reason: Pain Discharge Medication List Carvedilol 12.5 mg PO BID 07/16/14 [History] Citalopram Hydrobromide [CeleXA] 40 mg PO HS 07/16/14 [History] Omeprazole [PriLOSEC] 20 mg PO AC-BRKFST 07/16/14 [History] Spironolactone 50 mg PO BID 07/16/14 [History] Torsemide [Demadex] 100 mg PO DAILY 07/16/14 [History] Acetaminophen Tab [Tylenol] 650 mg PO Q6HR PRN #0 tab 11/20/14 [Rx] Baclofen 10 mg PO TID PRN #50 tab 11/20/14 [Rx] Potassium Chloride ER [K-Dur 20] 40 meq PO DAILY 11/20/14 [History] Ranitidine HCl [Zantac] 150 mg PO BID 06/27/16 [History] Rivaroxaban [Xarelto] 20 mg PO DAILY 06/27/16 [History] ALPRAZolam [Xanax] 2 mg PO TID PRN #90 tablet 06/30/16 [Rx] Cholestyramine (with Sugar) [Questran Packet] 4 gm PO BID #10 packet 06/30/16 [ Rx] Ertapenem [INVanz] 1 gm IVPB DAILY #12 vial 06/30/16 [Rx] HYDROcodone/APAP 5-325MG [[place] 5-325] 1 tab PO Q4HR PRN #90 tab 06/30/16 [Rx] Lactobacillus Acidoph & [place] [Lactinex] 1 each PO TID packet 06/30/16 [Rx] Follow up Appointment(s)/Referral(s): Basil Crowell DO [Primary Care Provider] - 1 Week Sam Pablo MD [STAFF PHYSICIAN] - 2 Weeks Ambulatory/Diagnostic Orders: Basic Metabolic Panel [LAB.AMB] Location: Determined By Patient Complete Blood Count w/diff [LAB.AMB] Location: Determined By Patient Discharge Disposition: TRANSFER TO SNF/ECF
--- NOTE | 2016-06-30 15:30 | PN ---
DATE OF SERVICE: 06/30/2016 Reason for followup is ESBL E. coli and urinary tract infection. INTERVAL HISTORY: The patient is afebrile. She is breathing comfortably. Denies having any chest pain or shortness of breath. No cough, no abdominal pain. The diarrhea has slowed down. On examination, blood pressure 111/74 with a pulse of 81, temperature 98.2. She is 91% on room air. General description is an elderly female, lying in bed in no distress. RESPIRATORY SYSTEM: Unlabored breathing. Clear to auscultation. HEART: S1, S2. Regular rate and rhythm. ABDOMEN: Soft, no tenderness. LABS: Hemoglobin is 13.3, white count of 5.1 with a BUN of 7, creatinine 1.06. DIAGNOSTIC IMPRESSION AND PLAN: Patient with ESBL Escherichia coli and urinary tract infection. Patient seemed to responding to the Invanz that will continue for another 12 days to finish a total of 2 weeks of therapy with close outpatient followup. Continue supportive care.
[2016-06-30] MEDS: LACTOBACILLUS ACIDOPH & BULGAR 1 EACH PACKET PO SCH ×3 (16:17→23:08)
[2016-06-30] MEDS: SPIRONOLACTONE 25 MG TAB PO SCH (17:51)
[2016-06-30] MEDS: RIVAROXABAN 10 MG TAB PO SCH (17:51)
[2016-06-30] MEDS: FLUCONAZOLE 150 MG TAB PO SCH (23:09)
[2016-06-30] MEDS: CITALOPRAM HYDROBROMIDE 20 MG TAB PO SCH (23:09)
[2016-06-30] MEDS: MAGNESIUM SULFATE-D5W PMX 1 GM in DEXTROSE/WATER 1 100ML.BAG IVPB SCH (23:10)
[2016-07-01] MEDS: MAGNESIUM SULFATE-D5W PMX 1 GM in DEXTROSE/WATER 1 100ML.BAG IVPB SCH (00:40)
[2016-07-01 07:07] LABS: Basophils % (A) 1 %; CH 31.6; CHCM 33.7; Eosinophils # (A) 0.1 k/uL (0-0.7); Eosinophils % (A) 1 %; HCT 43.4 % (34.0-46.0); HDW 2.56; HGB 14.3 gm/dL (11.4-16.0); Luc # (Auto) 0.26; Luc % (Auto) 4; Lymphocytes # (A) 1.6 k/uL (1.0-4.8); Lymphocytes % (A) 24 %; MCH 31.1 pg (25.0-35.0); MCV 94.1 fL (80.0-100.0); Mean Platelet Volume 6.6; Monocytes # (A) 0.4 k/uL (0-1.0); Monocytes % (A) 6 %; Neutrophils # (A) 4.2 k/uL (1.3-7.7); Neutrophils % (A) 65 %; RBC 4.61 m/uL (3.80-5.40); RDW 13.1 % (11.5-15.5); WBC 6.5 k/uL (3.8-10.6); WBC (Perox) 6.46
[2016-07-01 07:20] LABS: ALT 42 U/L (9-52); AST 34 U/L (14-36); Alkaline Phosphatase 89 U/L (38-126); Anion Gap 14 mmol/L; Blood Urea Nitrogen 9 mg/dL (7-17); Calcium 9.4 mg/dL (8.4-10.2); Carbon Dioxide 22 mmol/L (22-30); Chloride 102 mmol/L (98-107); Glucose 108 mg/dL (74-99); Non-African American GFR(MDRD) 57 (>60 ml/min/1.73 sqM); Potassium 3.8 mmol/L (3.5-5.1); Sodium 138 mmol/L (137-145); Total Bilirubin 0.6 mg/dL (0.2-1.3); Total Protein 6.6 g/dL (6.3-8.2)
[2016-07-01] MEDS: PANTOPRAZOLE 40 MG TABLET PO SCH (08:54)
[2016-07-01] MEDS: CARVEDILOL 12.5 MG TAB PO SCH ×2 (08:54→18:27)
[2016-07-01] MEDS: IPRATROPIUM-ALBUTEROL 3 ML NEB INHALATION SCH ×3 (08:56→19:09)
[2016-07-01] MEDS: SODIUM CHLORIDE 0.9% 1,000 ML IV SCH ×2 (09:09→09:10)
[2016-07-01] MEDS: CHOLESTYRAMINE (WITH SUGAR) 4 GM PACKET PO SCH (09:10)
[2016-07-01] MEDS: ERTAPENEM 1 GM in SODIUM CHLORIDE 0.9% 50 ML IVPB SCH (09:11)
[2016-07-01] MEDS: PHENAZOPYRIDINE 200 MG TAB PO SCH ×3 (09:12→21:27)
[2016-07-01] MEDS: POTASSIUM CHLORIDE ER 20 MEQ TAB.ER PO SCH (09:13)
[2016-07-01] MEDS: LACTOBACILLUS ACIDOPH & BULGAR 1 EACH PACKET PO SCH ×3 (09:13→21:27)
[2016-07-01] MEDS: TORSEMIDE 20 MG TAB PO SCH (09:13)
--- NOTE | 2016-07-01 10:06 | CONS ---
Aga Rahman is admitted for UTI and is receiving IV antibiotics. SHE HAS MULTIPLE ANTIBIOTIC ALLERGIES. Cardiology was consulted on account of nonsustained ventricular tachycardia. The patient has had episodes of nonsustained ventricular tachycardia, asymptomatic. She thought she had an ICD shock, but she was on telemetry and she did not receive any ICD shock. She has a history of cardiomyopathy and she has undergone Bi-V ICD implantation in the past. She has undergone a laser lead extraction of recalled externalized ( ) ICD lead by myself and then subsequently a repeat procedure at the [facility]. She now follows with [facility], does not follow with Dr. Camille Dickerson anymore. She is lying comfortably in bed at this time. REVIEW OF SYSTEMS: Currently no fever, chills or rigors. No cough or expectoration. No nausea, vomiting or diarrhea. No hematuria or dysuria. No strokes or seizures. No skin lesions or musculoskeletal complaints, but she was admitted to the hospital with a UTI. She had nausea, vomiting, diarrhea and she had fever with mental status changes. She has now improved and is being transferred to [facility]. Past history of cardiomyopathy and status post bi-V ICD. Past history also of CAD and coronary artery bypass grafting, appendectomy. SOCIAL HISTORY: She quit smoking in 2003. No history of alcohol use. SHE HAS MULTIPLE ALLERGIES, INCLUDING KEFLEX, LISINOPRIL MORPHINE, COUMADIN AND CODEINE. She is on beta blockers. She is not on ANALIA members because of her allergies. On examination, her blood pressure 131/84 mmHg 109/91 mmHg, respirations are normal. Pulse rate is normal. Heart sounds are normal. No S3 gallop. Breath sounds are normal. EXTREMITIES: Warm. No edema. IMPRESSION: 1. History of cardiomyopathy, status post biventricular implantable cardioverter-defibrillator implantation. 2. History coronary artery disease. 3. Admitted with urinary tract infection and mental status changes and on IV antibiotics. I WILL RECONFIRM WITH HER REGARDING HER LISINOPRIL ALLERGY. She is not on ANALIA inhibitor. She is not on ( ) blockers. She is on carvedilol and spironolactone which I will continue.
--- NOTE | 2016-07-01 15:07 | PN ---
DATE OF SERVICE: 07/01/2016 Reason for followup is ESBL E. coli urinary tract infection. INTERVAL HISTORY: The patient is afebrile. She is breathing comfortably. Denies having any significant chest pain or shortness of breath or cough. No abdominal pain and her diarrhea has resolved. On examination, blood pressure 134/83 with a pulse of 81, temperature of 98.6. She is 93% on room air. General description is an elderly female, lying in bed in no distress. RESPIRATORY SYSTEM: Unlabored breathing. Clear to auscultation anteriorly. HEART: S1, S2 with regular rate and rhythm. ABDOMEN: Soft, no tenderness. LABS: Hemoglobin is 14, white count is 6.5 with a BUN of 9, creatinine 0.97. DIAGNOSTIC IMPRESSION AND PLAN: 1. Patient with an ESBL Escherichia coli urinary tract infection. Patient on Invanz that will be continued for another 12 days to finish a total of 2-week course of therapy. 2. Patient's diarrhea more likely antibiotic associated that has resolved, to discontinue the Questran. Continue supportive care. MTDD
[2016-07-01] MEDS: RIVAROXABAN 10 MG TAB PO SCH (18:27)
[2016-07-01] MEDS: SPIRONOLACTONE 25 MG TAB PO SCH (18:27)
[2016-07-01] MEDS: FLUCONAZOLE 150 MG TAB PO SCH (21:27)
[2016-07-01] MEDS: CITALOPRAM HYDROBROMIDE 20 MG TAB PO SCH (21:27)
[2016-07-02 04:02] VITALS: RESP 18
[2016-07-02] MEDS: IPRATROPIUM-ALBUTEROL 3 ML NEB INHALATION SCH (07:52)
[2016-07-02] MEDS: LACTOBACILLUS ACIDOPH & BULGAR 1 EACH PACKET PO SCH (08:19)
[2016-07-02] MEDS: POTASSIUM CHLORIDE ER 20 MEQ TAB.ER PO SCH (08:20)
[2016-07-02] MEDS: PHENAZOPYRIDINE 200 MG TAB PO SCH (08:20)
[2016-07-02] MEDS: CARVEDILOL 12.5 MG TAB PO SCH (08:21)
[2016-07-02] MEDS: PANTOPRAZOLE 40 MG TABLET PO SCH (08:23)
[2016-07-02] MEDS: TORSEMIDE 20 MG TAB PO SCH (08:23)
[2016-07-02] MEDS: ERTAPENEM 1 GM in SODIUM CHLORIDE 0.9% 50 ML IVPB SCH (08:35)
[2016-07-02 08:53] VITALS: BP 103/69; PULSE 90; TEMP 98.3
[2016-07-02] MEDS ORDERED: LOSARTAN 25 MG TAB PO SCH (12:00)
--- NOTE | 2016-07-02 15:22 | PN ---
DATE OF SERVICE: 07/02/2016 Reason for followup is ESBL and E. coli urinary tract infection. INTERVAL HISTORY: The patient is afebrile. She was seen on rounds this morning where the patient is waiting for insurance approval to where she can go to rehab. Patient denies any chest pain or shortness of breath. No cough. No abdominal pain and diarrhea has resolved. On examination, blood pressure is 103/69, pulse of 90, temperature 98.3. She is 91% on room air. General description is an elderly female, lying in bed in no distress. RESPIRATORY SYSTEM: Unlabored breathing. Clear to auscultation anteriorly. HEART: S1, S2, regular rate and rhythm. ABDOMEN: Soft, no tenderness. LABS: No new labs have been obtained today. DIAGNOSTIC IMPRESSION AND PLAN: Patient with ESBL and Escherichia coli urinary tract infection. She will continue with the Invanz 1 gm daily for another 12 days to finish a course of therapy with outpatient followup. Continue supportive care.
== END 2016-07-02 11:35 | DRG 871 ==
LOC: EC 03:59 → 6PED 14:58
PROVIDERS: ADMIT Internal Medicine; ATTEND Internal Medicine
PROC: 02HV33Z Insertion of Infusion Device into Superior Vena Cava, Percutaneous Approach (ICD-10-PCS; principal; 2016-06-30 09:18)
DX: A41.9 Sepsis, unspecified organism (principal); G93.41 Metabolic encephalopathy; I47.2 Ventricular tachycardia; I42.9 Cardiomyopathy, unspecified; N39.0 Urinary tract infection, site not specified; I25.10 Atherosclerotic heart disease of native coronary artery without angina pectoris; I49.3 Ventricular premature depolarization; K21.9 Gastro-esophageal reflux disease without esophagitis; M19.012 Primary osteoarthritis, left shoulder; M85.80 Other specified disorders of bone density and structure, unspecified site; B96.20 Unspecified Escherichia coli [E. coli] as the cause of diseases classified elsewhere; L40.9 Psoriasis, unspecified; R10.9 Unspecified abdominal pain; R19.7 Diarrhea, unspecified; E87.6 Hypokalemia; N39.3 Stress incontinence (female) (male); Z16.12 Extended spectrum beta lactamase (ESBL) resistance; Z79.01 Long term (current) use of anticoagulants; Z79.899 Other long term (current) drug therapy; Z88.1 Allergy status to other antibiotic agents; Z88.5 Allergy status to narcotic agent; Z87.891 Personal history of nicotine dependence; Z88.8 Allergy status to other drugs, medicaments and biological substances; Z95.1 Presence of aortocoronary bypass graft; Z95.810 Presence of automatic (implantable) cardiac defibrillator; W19.XXXA Unspecified fall, initial encounter; Y92.231 Patient bathroom in hospital as the place of occurrence of the external cause
CPT/HCPCS: 36415; 36569; 71010; 74177; 76937; 77001; 80048; 80053; 80299; 81001; 82533; 82550; 82553; 83605; 83735; 84439; 84443; 84484; 85025; 85610; 85730; 87040; 87077; 87086; 87186; 87324; 87502; 93005; 94640; 94760; 96361; 96365; 96366; 99285

== ENCOUNTER → 2017-03-12 | Outpatient (CLI) | payer MEDICARE ==
--- NOTE | 2017-03-12 17:44 | CT ---
EXAMINATION TYPE: CT brain wo con DATE OF EXAM: 03/12/2017 COMPARISON: 11/19/2014 HISTORY: Vertigo and headache. CT DLP: 1011.50 mGycm Automated exposure control for dose reduction was used. FINDINGS: There is some cerebral cortical atrophy. There is no mass effect nor midline shift. There is no sign of intracranial hemorrhage. There is a 12 mm ring calcification at the left posterior frontal lobe co nvexity that could be a hemangioma. Calvarium is intact. IMPRESSION: CEREBRAL ATROPHY. STABLE EXTRA-AXIAL CALCIFICATION IN THE LEFT POSTERIOR FRONTAL REGION COMPARED TO O LD EXAM CONSISTENT WITH BENIGN ETIOLOGY. NO ACUTE INTRACRANIAL ABNORMALITY.
== END | disposition home or self-care (01) ==
LOC: RADCTMAIN 17:19
PROVIDERS: ATTEND Family Medicine
DX: G31.9 Degenerative disease of nervous system, unspecified (principal); G93.89 Other specified disorders of brain; R42 Dizziness and giddiness
CPT/HCPCS: 70450

== ENCOUNTER 2017-05-05 13:45 | Emergency (ER) | payer MEDICARE ==
[2017-05-05 13:52] VITALS: RESP 18
--- NOTE | 2017-05-05 14:24 | ED ---
General Adult HPI - General Chief complaint: Extremity Injury, Lower Stated complaint: BOTH FEET SWELLING Time Seen by Provider: 05/05/17 14:04 Source: patient, family, RN notes reviewed Mode of arrival: wheelchair Limitations: no limitations - History of Present Illness Initial comments: Present illness, patient complains of foot pain. - Related Data Home Medications Medication Instructions Recorded Confirmed Carvedilol 12.5 mg PO BID 07/16/14 05/05/17 Citalopram Hydrobromide [CeleXA] 40 mg PO HS 07/16/14 05/05/17 Spironolactone 50 mg PO BID 07/16/14 05/05/17 Torsemide [Demadex] 100 mg PO DAILY 07/16/14 05/05/17 Potassium Chloride ER [K-Dur 20] 40 meq PO DAILY 11/20/14 05/05/17 Ranitidine HCl [Zantac] 150 mg PO BID 06/27/16 05/05/17 Rivaroxaban [Xarelto] 20 mg PO DAILY 06/27/16 05/05/17 ALPRAZolam [Xanax] 2 mg PO HS PRN 05/05/17 05/05/17 HYDROcodone/APAP 5-325MG [[place] 0.5 - 1 tab PO Q4HR PRN 05/05/17 05/05/17 5-325] Previous Rx's Medication Instructions Recorded Colchicine 0.6 mg PO DAILY #12 capsule 05/05/17 Allergies Allergy/AdvReac Type Severity Reaction Status Date / Time cephalexin monohydrate Allergy Rash/Hives Verified 05/05/17 14:08 [From Keflex] lisinopril Allergy Rash/Hives Verified 05/05/17 14:08 morphine Allergy Rash/Hives/ Verified 05/05/17 14:08 Sob warfarin [From Coumadin] Allergy Rash/Hives Verified 05/05/17 14:08 codeine AdvReac Nausea & Verified 05/05/17 14:08 Vomiting hydrocodone [From [place]] AdvReac Nausea & Verified 05/05/17 14:08 Vomiting Review of Systems ROS Statement: Those systems with pertinent positive or pertinent negative responses have been documented in the HPI. Review of systems. No complaint of any visual acuity changes no headache no stiff neck no chest pain or shortness of breath no GI/ problems or complaints. No neuro deficits. Chief complaint is that of bilateral foot pain mostly to the dorsum of both feet and the first MTP is. The patient does have a history of bunions. Discouraged by her surgeon from having surgery because I will continue her even afterwards. She does take Tylenol which helps sometimes. All systems are reviewed. Past medical problems significant for coronary artery disease, CHF, GERD, psoriasis. Patient's surgeries include total cyst to hysterectomy, left carotid endarterectomy, she also wasn't implanted fibrillator. Patient's also had cervical fusion. Family history no cancers. The patient has ALLERGIES to cephalexin lisinopril morphine warfare in and codeine and hydrocodone. Nonsmoker nondrinker. ROS Other: All systems not noted in ROS Statement are negative. 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- SEE SPECIALIST IN [place] 10/02/14 TO CHECK AICD Past Anesthesia/Blood Transfusion Reactions: Motion Sickness Type of Cardiac Device: Permanent Pacemaker, AICD Device Placement Date:: 2011 Past Psychological History: No Psychological Hx Reported Smoking Status: Former smoker Past Alcohol Use History: None Reported Past Drug Use History: None Reported - Past Family History Mother Family Medical History: No Reported History General Exam - General Exam Comments Initial Comments: General: The patient is awake and alert, complaining of pain to both feet mainly her first MTP joints. Vital signs shows temperature 98.2 pulse 83 respiratory rate 18 pulse ox 95% room air blood pressure 103/67 Eye: Pupils are equal, round and reactive to light, extra-ocular movements are intact ; there is normal conjunctiva bilaterally. No signs of icterus. Evidence of cataract surgery. Ears, nose, mouth and throat: There are moist mucous membranes and no oral lesions. Neck: The neck is supple, there is no tenderness, no bruit. Thyroid not enlarged. She's had both neck cervical fusion and left carotid endarterectomy by history. Cardiovascular: There is a regular rate and rhythm. No murmur, rub or gallop is appreciated. Respiratory: Lungs are clear to auscultation, respirations are non-labored, breath sounds are equal. No wheezes, stridor, rales, or rhonchi. Gastrointestinal: Soft, non-distended, non-tender abdomen without masses or organomegaly noted. There is no rebound or guarding present. No CVA tenderness. Bowel sounds are unremarkable. No change in appetite no urinary problems. Back: There is no tenderness to palpation in the midline. There is no obvious deformity. No rashes noted. Denies any back pain. Musculoskeletal: Mild swelling to the dorsal surface of both feet and first MTP joints. Range of motion is decreased secondary to pain increases with movement and walking. No evidence of cellulitis. Neurological: No neuro deficits Skin: Skin is warm and dry and no rashes or lesions are noted. Psychiatric: No complaint of any depression. Limitations: no limitations Course Vital Signs 05/05/17 05/05/17 05/05/17 13:50 16:20 17:30 Temperature 98.2 F 98.7 F 97.6 F Pulse Rate 83 91 67 Respiratory 18 18 18 Rate Blood Pressure 103/67 121/70 117/73 O2 Sat by Pulse 95 97 98 Oximetry Medical Decision Making - Medical Decision Making she presents emergency room with complaint of foot pain left worse than right. She thinks because she is doing a lot walking lately. Labs show an elevated uric acid of 9.3. Rated both feet were done and reviewed by radiologist for report was reviewed. Final impression is no acute fracture dislocation in either foot as read by Dr. coe Patient be given colchicine 1.2 mg to start and then one tablet daily and follow -up with family physician. - Lab Data Lab Results 05/05/17 Range/Units 15:24 Uric Acid 9.3 H (3.7-7.4) mg/dL Disposition Clinical Impression: Gout attack Disposition: HOME SELF-CARE Condition: Fair Instructions: Low Purine Diet (ED), Gout (ED) Additional Instructions: Take one colchicine daily for the next several days, follow-up family physician Prescriptions: Colchicine 0.6 mg PO DAILY #12 capsule Referrals: Basil Crowell DO [Primary Care Provider] - 1-2 days Time of Disposition: 14:37
--- NOTE | 2017-05-05 15:41 | XR ---
EXAMINATION TYPE: XR foot complete bilateral DATE OF EXAM: 05/05/2017 CLINICAL HISTORY: Bilateral foot pain and swelling. TECHNIQUE: Frontal, lateral, and oblique images of the bilateral feet are obtained. COMPARISON: Right foot x-ray June 27, 2015. FINDINGS: Osseous structures are demineralized which is noted lower radiographic sensitivity. There is no acute fracture/dislocation evident in either foot. There is persistent hallux valgus deformity first metatarsophalangeal joint right foot. There is birdger ed flexion in the toes redemonstrated right. Vascular calcification of overlying soft tissues distal ankle level is seen in right foot. Images of left foot show hallux valgus deformity first metatarsophalangeal joint left though less pro minent than right foot. Overlying soft tissue is unremarkable left foot. IMPRESSION: There is no acute fracture or dislocation in either foot.
[2017-05-05] MEDS ORDERED: COLCHICINE 0.6 MG TAB PO ONE (16:45)
[2017-05-05 17:31] VITALS: BP 117/73; PULSE 67; TEMP 97.6
[2017-05-06] MEDS ORDERED: COLCHICINE 0.6 MG TAB PO SCH (09:00)
== END 2017-05-05 17:31 | disposition home or self-care (01) ==
LOC: EC 13:45
DX: M10.9 Gout, unspecified (principal); I25.10 Atherosclerotic heart disease of native coronary artery without angina pectoris; I50.9 Heart failure, unspecified; K21.9 Gastro-esophageal reflux disease without esophagitis; Z87.891 Personal history of nicotine dependence; Z88.1 Allergy status to other antibiotic agents; Z88.5 Allergy status to narcotic agent; Z88.8 Allergy status to other drugs, medicaments and biological substances; Z79.01 Long term (current) use of anticoagulants; Z79.899 Other long term (current) drug therapy
CPT/HCPCS: 36415; 84550; 99283

== ENCOUNTER 2017-06-08 17:18 | Emergency (ER) | payer MEDICARE ==
[2017-06-08] MEDS ORDERED: RX INFO: IV CONTRAST WAS GIVEN 1 EACH MISC MISCELLANE PRN (17:24)
--- NOTE | 2017-06-08 17:47 | ED ---
Fall HPI - General Stated Complaint: Fall Time Seen by Provider: 06/08/17 17:18 Source: patient, EMS, RN notes reviewed - History of Present Illness Initial Comments: This is a 70-year-old female apparently was walking backwards down steps when she slipped or tripped falling 6 or 7 steps down landing on concrete floor. She 's not sure she was knocked out or not. She complains some pain to her nose pain her left shoulder and upper extremity also pain over her left hip and right low back. No overt neck pain. Per paramedics she was noted have a small amount of dry blood over the middle lower nose at the level of the philtrum no other signs of injury she denies any blurry vision loss of function to her upper or lower extremities. Of note the patient is on a newer generation blood thinner. MD Complaint: fall - Related Data Home Medications Medication Instructions Recorded Confirmed Carvedilol 12.5 mg PO BID 07/16/14 06/08/17 Citalopram Hydrobromide [CeleXA] 40 mg PO HS 07/16/14 06/08/17 Spironolactone 50 mg PO BID 07/16/14 06/08/17 Torsemide [Demadex] 100 mg PO DAILY 07/16/14 06/08/17 Potassium Chloride ER [K-Dur 20] 40 meq PO DAILY 11/20/14 06/08/17 Ranitidine HCl [Zantac] 150 mg PO BID 06/27/16 06/08/17 Rivaroxaban [Xarelto] 20 mg PO DAILY 06/27/16 06/08/17 ALPRAZolam [Xanax] 2 mg PO HS PRN 05/05/17 06/08/17 HYDROcodone/APAP 5-325MG [[place] 0.5 - 1 tab PO Q4HR PRN 05/05/17 06/08/17 5-325] Allopurinol [Zyloprim] 100 mg PO DAILY 06/08/17 06/08/17 Previous Rx's Medication Instructions Recorded Colchicine 0.6 mg PO DAILY #12 capsule 05/05/17 Allergies Allergy/AdvReac Type Severity Reaction Status Date / Time cephalexin monohydrate Allergy Rash/Hives Verified 06/08/17 18:22 [From Keflex] lisinopril Allergy Rash/Hives Verified 06/08/17 18:22 morphine Allergy Rash/Hives/ Verified 06/08/17 18:22 Sob warfarin [From Coumadin] Allergy Rash/Hives Verified 06/08/17 18:22 codeine AdvReac Nausea & Verified 06/08/17 18:22 Vomiting hydrocodone [From [place]] AdvReac Nausea & Verified 06/08/17 18:22 Vomiting Review of Systems ROS Statement: Those systems with pertinent positive or pertinent negative responses have been documented in the HPI. ROS Other: All systems not noted in ROS Statement are negative. 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- SEE SPECIALIST IN [place] 10/02/14 TO CHECK AICD Past Anesthesia/Blood Transfusion Reactions: Motion Sickness Type of Cardiac Device: Permanent Pacemaker, AICD Device Placement Date:: 2011 Past Psychological History: No Psychological Hx Reported Smoking Status: Former smoker Past Alcohol Use History: None Reported Past Drug Use History: None Reported - Past Family History Mother Family Medical History: No Reported History General Exam - General Exam Comments Initial Comments: This a well-developed well-nourished awake alert oriented 3 female she was brought in on a backboard with c-collar immobilization she was certainly thereafter removed from the record. She does demonstrate a [place] Coma Scale of 15. Limitations: physical limitation General appearance: alert, anxious Head exam: Present: normocephalic, other (Mild tenderness palpation of the nose dry blood is noted above no active bleeding seen from any source) Eye exam: Present: normal appearance, PERRL, EOMI. Absent: scleral icterus, conjunctival injection, periorbital swelling ENT exam: Present: normal exam, mucous membranes moist Neck exam: Present: normal inspection, tenderness, other (Cervical collar is in place mild lateral neck tenderness palpation no midline tenderness.). Absent: lymphadenopathy Respiratory exam: Present: normal lung sounds bilaterally. Absent: respiratory distress, wheezes, rales, rhonchi, stridor Cardiovascular Exam: Present: regular rate, normal rhythm, normal heart sounds. Absent: systolic murmur, diastolic murmur, rubs, gallop, clicks GI/Abdominal exam: Present: soft, tenderness (Mild anterior abdominal wall tenderness no abrasions or lacerations noted no ecchymosis.), normal bowel sounds. Absent: distended, guarding, rebound, rigid Rectal exam: Present: deferred Extremities exam: Present: normal inspection, tenderness (Tenderness over the left shoulder and humerus as well as left elbow. Mild left tenderness to the hip). Absent: full ROM Back exam: Present: normal inspection, tenderness (Tenderness palpation of the right SI joint region. No step-off or crepitation), paraspinal tenderness. Absent: CVA tenderness (R), CVA tenderness (L), muscle spasm, vertebral tenderness Neurological exam: Present: alert, oriented X3, CN II-XII intact Psychiatric exam: Present: normal affect, normal mood Skin exam: Present: warm, dry, intact, normal color. Absent: rash Course Vital Signs 06/08/17 17:18 Temperature 97.8 F Pulse Rate 62 Respiratory 18 Rate Blood Pressure 119/71 O2 Sat by Pulse 96 Oximetry - Reevaluation(s) Reevaluation #1: 06/08/17 20:29 Patient does have multiple pain medication ALLERGIES and initially did not request or want any pain medication. She was later given IV over male Medical Decision Making - Medical Decision Making I did reevaluate patient several occasions. Patient case was discussed with her and her family members patient will be discharged with instruction follow- up with orthopedics. [id number] pain medication follow-up. She was sent home in a sling - Lab Data Result diagrams: 06/08/17 17:40 06/08/17 18:48 Lab Results 06/08/17 06/08/17 06/08/17 Range/Units 17:40 17:40 17:40 WBC 8.2 (3.8-10.6) k/uL RBC 4.02 (3.80-5.40) m/uL Hgb 12.6 (11.4-16.0) gm/dL Hct 38.7 (34.0-46.0) % MCV 96.1 (80.0-100.0) fL MCH 31.4 (25.0-35.0) pg MCHC 32.6 (31.0-37.0) g/dL RDW 14.3 (11.5-15.5) % Plt Count 244 (150-450) k/uL Neutrophils % 72 % Lymphocytes % 16 % Monocytes % 5 % Eosinophils % 3 % Basophils % 1 % Neutrophils # 5.9 (1.3-7.7) k/uL Lymphocytes # 1.3 (1.0-4.8) k/uL Monocytes # 0.4 (0-1.0) k/uL Eosinophils # 0.3 (0-0.7) k/uL Basophils # 0.1 (0-0.2) k/uL PT 11.5 (9.0-12.0) sec INR 1.2 H (<1.2) APTT 28.6 (22.0-30.0) sec Sodium (137-145) mmol/L Potassium (3.5-5.1) mmol/L Chloride (98-107) mmol/L Carbon Dioxide (22-30) mmol/L Anion Gap mmol/L BUN (7-17) mg/dL Creatinine (0.52-1.04) mg/dL Est GFR (MDRD) Af Amer (>60 ml/min/1.73 sqM) Est GFR (MDRD) Non-Af (>60 ml/min/1.73 sqM) Glucose (74-99) mg/dL Plasma Lactic Acid Sruya 1.3 (0.7-2.0) mmol/L Calcium (8.4-10.2) mg/dL Total Bilirubin (0.2-1.3) mg/dL AST (14-36) U/L ALT (9-52) U/L Alkaline Phosphatase (38-126) U/L Total Creatine Kinase (30-135) U/L CK-MB (CK-2) (0.0-2.4) ng/mL CK-MB (CK-2) Rel Index Troponin I (0.000-0.034) ng/mL Total Protein (6.3-8.2) g/dL Albumin (3.5-5.0) g/dL Amylase (30-110) U/L Lipase (23-300) U/L Urine Color Urine Appearance (Clear) Urine pH (5.0-8.0) Ur Specific [place] (1.001-1.035) Urine Protein (Negative) Urine Glucose (UA) (Negative) Urine Ketones (Negative) Urine Blood (Negative) Urine Nitrite (Negative) Urine Bilirubin (Negative) Urine Urobilinogen (<2.0) mg/dL Ur Leukocyte Esterase (Negative) Urine RBC (0-5) /hpf Urine WBC (0-5) /hpf Ur Squamous Epith Cells (0-4) /hpf Urine Bacteria (None) /hpf Hyaline Casts (0-2) /lpf Urine Mucus (None) /hpf Urine Opiates Screen (NotDetected) Ur Oxycodone Screen (NotDetected) Urine Methadone Screen (NotDetected) Ur Propoxyphene Screen (NotDetected) Ur Barbiturates Screen (NotDetected) U Tricyclic Antidepress (NotDetected) Ur Phencyclidine Scrn (NotDetected) Ur Amphetamines Screen (NotDetected) U Methamphetamines Scrn (NotDetected) U Benzodiazepines Scrn (NotDetected) Urine Cocaine Screen (NotDetected) U Marijuana (THC) Screen (NotDetected) Serum Alcohol mg/dL Blood Type Blood Type Recheck Antibody Screen Spec Expiration Date 06/08/17 06/08/17 06/08/17 Range/Units 17:40 18:44 18:48 WBC (3.8-10.6) k/uL RBC (3.80-5.40) m/uL Hgb (11.4-16.0) gm/dL Hct (34.0-46.0) % MCV (80.0-100.0) fL MCH (25.0-35.0) pg MCHC (31.0-37.0) g/dL RDW (11.5-15.5) % Plt Count (150-450) k/uL Neutrophils % % Lymphocytes % % Monocytes % % Eosinophils % % Basophils % % Neutrophils # (1.3-7.7) k/uL Lymphocytes # (1.0-4.8) k/uL Monocytes # (0-1.0) k/uL Eosinophils # (0-0.7) k/uL Basophils # (0-0.2) k/uL PT (9.0-12.0) sec INR (<1.2) APTT (22.0-30.0) sec Sodium 134 L (137-145) mmol/L Potassium 4.9 (3.5-5.1) mmol/L Chloride 103 (98-107) mmol/L Carbon Dioxide 24 (22-30) mmol/L Anion Gap 7 mmol/L BUN 39 H (7-17) mg/dL Creatinine 1.80 H (0.52-1.04) mg/dL Est GFR (MDRD) Af Amer 34 (>60 ml/min/1.73 sqM) Est GFR (MDRD) Non-Af 28 (>60 ml/min/1.73 sqM) Glucose 98 (74-99) mg/dL Plasma Lactic Acid Surya (0.7-2.0) mmol/L Calcium 8.6 (8.4-10.2) mg/dL Total Bilirubin 0.6 (0.2-1.3) mg/dL AST 25 (14-36) U/L ALT 31 (9-52) U/L Alkaline Phosphatase 108 (38-126) U/L Total Creatine Kinase (30-135) U/L CK-MB (CK-2) (0.0-2.4) ng/mL CK-MB (CK-2) Rel Index Troponin I (0.000-0.034) ng/mL Total Protein 6.3 (6.3-8.2) g/dL Albumin 3.5 (3.5-5.0) g/dL Amylase 39 (30-110) U/L Lipase 173 (23-300) U/L Urine Color Light Yellow Urine Appearance Clear (Clear) Urine pH 5.0 (5.0-8.0) Ur Specific [place] 1.009 (1.001-1.035) Urine Protein Negative (Negative) Urine Glucose (UA) Negative (Negative) Urine Ketones Negative (Negative) Urine Blood Negative (Negative) Urine Nitrite Negative (Negative) Urine Bilirubin Negative (Negative) Urine Urobilinogen <2.0 (<2.0) mg/dL Ur Leukocyte Esterase Large H (Negative) Urine RBC 1 (0-5) /hpf Urine WBC 4 (0-5) /hpf Ur Squamous Epith Cells 1 (0-4) /hpf Urine Bacteria Rare H (None) /hpf Hyaline Casts 15 H (0-2) /lpf Urine Mucus Rare H (None) /hpf Urine Opiates Screen Not Detected (NotDetected) Ur Oxycodone Screen Not Detected (NotDetected) Urine Methadone Screen Not Detected (NotDetected) Ur Propoxyphene Screen Not Detected (NotDetected) Ur Barbiturates Screen Not Detected (NotDetected) U Tricyclic Antidepress Not Detected (NotDetected) Ur Phencyclidine Scrn Not Detected (NotDetected) Ur Amphetamines Screen Not Detected (NotDetected) U Methamphetamines Scrn Not Detected (NotDetected) U Benzodiazepines Scrn Detected H (NotDetected) Urine Cocaine Screen Not Detected (NotDetected) U Marijuana (THC) Screen Not Detected (NotDetected) Serum Alcohol <10 mg/dL Blood Type O Positive Blood Type Recheck O Pos Antibody Screen NEGATIVE Spec Expiration Date 06/11/2017 - 233906/08/17 Range/Units 18:48 WBC (3.8-10.6) k/uL RBC (3.80-5.40) m/uL Hgb (11.4-16.0) gm/dL Hct (34.0-46.0) % MCV (80.0-100.0) fL MCH (25.0-35.0) pg MCHC (31.0-37.0) g/dL RDW (11.5-15.5) % Plt Count (150-450) k/uL Neutrophils % % Lymphocytes % % Monocytes % % Eosinophils % % Basophils % % Neutrophils # (1.3-7.7) k/uL Lymphocytes # (1.0-4.8) k/uL Monocytes # (0-1.0) k/uL Eosinophils # (0-0.7) k/uL Basophils # (0-0.2) k/uL PT (9.0-12.0) sec INR (<1.2) APTT (22.0-30.0) sec Sodium (137-145) mmol/L Potassium (3.5-5.1) mmol/L Chloride (98-107) mmol/L Carbon Dioxide (22-30) mmol/L Anion Gap mmol/L BUN (7-17) mg/dL Creatinine (0.52-1.04) mg/dL Est GFR (MDRD) Af Amer (>60 ml/min/1.73 sqM) Est GFR (MDRD) Non-Af (>60 ml/min/1.73 sqM) Glucose (74-99) mg/dL Plasma Lactic Acid Surya (0.7-2.0) mmol/L Calcium (8.4-10.2) mg/dL Total Bilirubin (0.2-1.3) mg/dL AST (14-36) U/L ALT (9-52) U/L Alkaline Phosphatase (38-126) U/L Total Creatine Kinase 71 (30-135) U/L CK-MB (CK-2) 0.8 (0.0-2.4) ng/mL CK-MB (CK-2) Rel Index 1.1 Troponin I <0.012 (0.000-0.034) ng/mL Total Protein (6.3-8.2) g/dL Albumin (3.5-5.0) g/dL Amylase (30-110) U/L Lipase (23-300) U/L Urine Color Urine Appearance (Clear) Urine pH (5.0-8.0) Ur Specific [place] (1.001-1.035) Urine Protein (Negative) Urine Glucose (UA) (Negative) Urine Ketones (Negative) Urine Blood (Negative) Urine Nitrite (Negative) Urine Bilirubin (Negative) Urine Urobilinogen (<2.0) mg/dL Ur Leukocyte Esterase (Negative) Urine RBC (0-5) /hpf Urine WBC (0-5) /hpf Ur Squamous Epith Cells (0-4) /hpf Urine Bacteria (None) /hpf Hyaline Casts (0-2) /lpf Urine Mucus (None) /hpf Urine Opiates Screen (NotDetected) Ur Oxycodone Screen (NotDetected) Urine Methadone Screen (NotDetected) Ur Propoxyphene Screen (NotDetected) Ur Barbiturates Screen (NotDetected) U Tricyclic Antidepress (NotDetected) Ur Phencyclidine Scrn (NotDetected) Ur Amphetamines Screen (NotDetected) U Methamphetamines Scrn (NotDetected) U Benzodiazepines Scrn (NotDetected) Urine Cocaine Screen (NotDetected) U Marijuana (THC) Screen (NotDetected) Serum Alcohol mg/dL Blood Type Blood Type Recheck Antibody Screen Spec Expiration Date - EKG Data -: EKG Interpreted by Me (Sinus rhythm rate is 62. Interval 166 QRS 100 QT since QTC 476/43 low-volt) - Radiology Data Radiology results: report reviewed (I did review the imaging and reports no acute findings except for a radial head fracture on the left.), image reviewed Critical Care Time Critical Care Time: Yes Critical Care Time: 31 minutes of critical care time which includes initial presentation with history physical labs x-rays monitoring the EMS run and discussed with paramedics. Reevaluation the patient discussed with the patient family regarding the findings mentation the above. I did discuss case with Dr. reilly initially. Trauma activation was performed Disposition Clinical Impression: Left radial head fracture, Multiple contusions, Fall, Renal insufficiency Disposition: HOME SELF-CARE Condition: Good Instructions: Fall Prevention for Older Adults (ED), Elbow Fracture (ED) Additional Instructions: [id number] pain medication Referrals: Basil Crowell DO [Primary Care Provider] - 1-2 days Alex James DO [Doctor of Osteopathic Medicine] - 1-2 days
--- NOTE | 2017-06-08 17:48 | XR ---
EXAMINATION TYPE: XR chest 1V portable DATE OF EXAM: 06/08/2017 COMPARISON: 06/27/2016 HISTORY: Pain TECHNIQUE: Single frontal view of the chest is obtained. FINDINGS: Heart is enlarged. There is no heart failure. Costophrenic angles are clear. Thoracic aort a is atheromatous. There is left axillary pacemaker with the lead tips in the right ventricle. IMPRESSION: Cardiomegaly. No active cardiopulmonary disease. No adverse change compared to old exam.
--- NOTE | 2017-06-08 17:49 | XR ---
EXAMINATION TYPE: XR pelvis AP view DATE OF EXAM: 06/08/2017 COMPARISON: 11/19/2014 HISTORY: Pain after trauma TECHNIQUE: Single view FINDINGS: Pelvic ring is intact. Proximal femurs and hip joints are intact but sacroiliac joints appe ar normal. There is vascular calcification. IMPRESSION: No acute abnormality of the pelvis.
[2017-06-08 17:55] LABS: Basophils # (A) 0.1 k/uL (0-0.2); Basophils % (A) 1 %; Eosinophils # (A) 0.3 k/uL (0-0.7); Eosinophils % (A) 3 %; HCT 38.7 % (34.0-46.0); HGB 12.6 gm/dL (11.4-16.0); Lymphocytes # (A) 1.3 k/uL (1.0-4.8); Lymphocytes % (A) 16 %; MCH 31.4 pg (25.0-35.0); MCHC 32.6 g/dL (31.0-37.0); MCV 96.1 fL (80.0-100.0); Mean Platelet Volume 7.5; Monocytes # (A) 0.4 k/uL (0-1.0); Monocytes % (A) 5 %; Neutrophils # (A) 5.9 k/uL (1.3-7.7); Neutrophils % (A) 72 %; Platelet Count 244 k/uL (150-450); RBC 4.02 m/uL (3.80-5.40); RDW 14.3 % (11.5-15.5); WBC 8.2 k/uL (3.8-10.6)
[2017-06-08 18:09] LABS: Partial Thromboplastin Time 28.6 sec (22.0-30.0)
[2017-06-08 18:16] LABS: INR 1.2 (<1.2); Prothrombin Time 11.5 sec (9.0-12.0)
--- NOTE | 2017-06-08 18:19 | CT ---
EXAMINATION TYPE: CT ChestAbdPelvis w con DATE OF EXAM: 06/08/2017 COMPARISON: 06/27/2016 HISTORY: Fall backwards down 6+ stairs with pelvic pain. CT DLP: 1132.50 mGycm Automated exposure control for dose reduction was used. CONTRAST: CT scan of the chest, abdomen and pelvis is performed without Oral Contrast and with IV Contrast, pat ient injected with 100 mL of Omnipaque 300. FINDINGS: There is some coarsening of interstitial markings at the posterior right and left lung base. Heart is enlarged. There is no pleural effusion. Liver spleen pancreas appear normal. Bile ducts are not dilated. Gallbladder appears normal. There is no adrenal mass. Kidneys show mild atrophy. There is no hydronephrosis. Ureters are not dilated. The re is no retroperitoneal adenopathy. Abdominal aorta is atheromatous. Bladder distends smoothly. Ther e is no evidence of a pelvic mass. There is no ascites. I see no intestinal wall thickening. There ar e no dilated loops. Appendix is not seen. There is no sign of appendicitis. There is pleural thickeni ng at the right upper lobe posteriorly. I see no rib fracture. I see no pelvic fracture. IMPRESSION: No evidence of traumatic injury. There is bilateral pulmonary pleural thickening and subs egmental atelectasis that is worse on the right side. No fracture seen.
--- NOTE | 2017-06-08 18:23 | CT ---
EXAMINATION TYPE: CT brain oracio wo con DATE OF EXAM: 06/08/2017 COMPARISON: 03/12/2017 HISTORY: Fall backwards down 6+ stairs. CT DLP: 2410.90 mGycm Automated exposure control for dose reduction was used. TECHNIQUE: CT scan of the head and cervical spine are performed without contrast. FINDINGS: There is some cerebral cortical atrophy. There is no mass effect nor midline shift. There is no sign of intracranial hemorrhage. The calvarium is intact. There is an 11 mm rounded calcific d ensity at the left posterior frontal lobe convexity there is probably a calcifying meningioma. This i s unchanged compared to old exam. There is a few millimeter anterior subluxation of C formation at C5. There is old C5-6 anterior fusio n surgery. There is C6-7 fusion as well. The posterior elements are intact. There is no evidence of a fracture. The skull base is intact. IMPRESSION: Extra-axial calcific density in the left posterior frontal lobe consistent with meningioma is unchang ed. No acute intracranial abnormality. Spondylotic changes in the cervical spine with degenerative mild C4-5 spondylolisthesis. No adverse c hange compared to 07/29/2011 exam. No fracture.
--- NOTE | 2017-06-08 18:25 | CT ---
EXAMINATION TYPE: CT facial bones wo con DATE OF EXAM: 06/08/2017 COMPARISON: NONE HISTORY: Fall backwards down 6+ stairs. CT DLP: 575.30 mGycm Automated exposure control for dose reduction was used. TECHNIQUE: CT scan of the sinuses is performed without contrast, axial images are obtained, coronal r eformatted images are also reviewed. FINDINGS: There is bilateral patency of the ostia medial complex. Orbital margins are intact. There i s no evidence of a blowout fracture. Mandibular ring is intact. Zygomatic arches appear normal. The m axilla is intact. Nasal bone appears intact. There is fairly normal aeration of the paranasal sinuses . IMPRESSION: Negative CT scan of the facial bones. No evidence of traumatic injury.
[2017-06-08 18:55] LABS: Appearance,Urine Clear (Clear); Bacteria,Urine Rare /hpf; Bilirubin,Urine Negative (Negative); Blood,Urine Negative (Negative); Color,Urine Light Yellow; Glucose,Urine (UA) Negative (Negative); Hyaline Casts,Urine 15 /lpf (0-2); Ketones,Urine Negative (Negative); Leukocyte Esterase,Urine Large (Negative); Mucus,Urine Rare /hpf; Nitrite,Urine Negative (Negative); Protein,Urine Negative (Negative); RBC,Urine 1 /hpf (0-5); Specific Gravity,Urine 1.009 (1.001-1.035); Squamous Epithelial Cell,Urine 1 /hpf (0-4); Urobilinogen,Urine <2.0 mg/dL (<2.0); WBC,Urine 4 /hpf (0-5)
[2017-06-08 19:01] LABS: Amphetamine Screen,Urine Not Detected (NotDetected); Barbiturate Screen,Urine Not Detected (NotDetected); Benzodiazepines Screen,Urine Detected (NotDetected); Cocaine Screen,Urine Not Detected (NotDetected); Methadone Screen, Urine Not Detected (NotDetected); Opiate Screen,Urine Not Detected (NotDetected); Oxycodone Screen, Urine Not Detected (NotDetected); Phencyclidine Screen,Urine Not Detected (NotDetected); Tricyclic Antidepressant,Urine Not Detected (NotDetected); Urn Cannabinoid Scrn Not Detected (NotDetected)
[2017-06-08 19:07] LABS: ALT 31 U/L (9-52); AST 25 U/L (14-36); Albumin 3.5 g/dL (3.5-5.0); Alcohol <10 mg/dL; Alkaline Phosphatase 108 U/L (38-126); Amylase 39 U/L (30-110); Anion Gap 7 mmol/L; Blood Urea Nitrogen 39 mg/dL (7-17); Calcium 8.6 mg/dL (8.4-10.2); Carbon Dioxide 24 mmol/L (22-30); Chloride 103 mmol/L (98-107); Glucose 98 mg/dL (74-99); Lipase 173 U/L (23-300); Potassium 4.9 mmol/L (3.5-5.1); Sodium 134 mmol/L (137-145); Total Bilirubin 0.6 mg/dL (0.2-1.3); Total Protein 6.3 g/dL (6.3-8.2)
[2017-06-08 19:16] LABS: Creatine Kinase 71 U/L (30-135)
[2017-06-08] MEDS ORDERED: ACETAMINOPHEN IV (For NPO) 1,000 MG in SALINE 1 100ML.BAG IVPB STA (19:21)
--- NOTE | 2017-06-08 19:22 | XR ---
EXAMINATION TYPE: XR shoulder complete LT DATE OF EXAM: 06/08/2017 COMPARISON: NONE HISTORY: Shoulder pain TECHNIQUE: 3 views FINDINGS: I see no fracture nor dislocation. Glenohumeral joint is anatomic. There are no pathologic calcifications at the greater tuberosity. IMPRESSION: Negative left shoulder exam.
--- NOTE | 2017-06-08 19:23 | XR ---
EXAMINATION TYPE: XR forearm LT DATE OF EXAM: 06/08/2017 COMPARISON: NONE HISTORY: Pain TECHNIQUE: 2 views FINDINGS: There is slightly impacted transverse fracture of the neck of the radial head. Wrist joint appears intact. IMPRESSION: Radial head fracture.
--- NOTE | 2017-06-08 19:24 | XR ---
EXAMINATION TYPE: XR humerus LT DATE OF EXAM: 06/08/2017 COMPARISON: NONE HISTORY: Pain TECHNIQUE: 2 views FINDINGS: Humerus appears intact. There is evidence of nondisplaced fracture of the neck of the radia l head. There is no dislocation. IMPRESSION: Radial head fracture. No humerus fracture seen.
[2017-06-08 19:28] LABS: Creatine Kinase MB 0.8 ng/mL (0.0-2.4); Troponin I <0.012 ng/mL (0.000-0.034)
[2017-06-08] MEDS ORDERED: HYDROcodone/APAP 5-325MG 1 EACH TAB PO STA (21:20)
[2017-06-09 23:11] VITALS: BP 103/60; PULSE 65; RESP 16; TEMP 97.8
== END 2017-06-08 20:41 | disposition home or self-care (01) ==
LOC: EC 17:18
DX: S52.125A Nondisplaced fracture of head of left radius, initial encounter for closed fracture (principal); M54.5 Low back pain; N28.9 Disorder of kidney and ureter, unspecified; M25.552 Pain in left hip; R40.2412 Glasgow coma scale score 13-15, at arrival to emergency department; I25.10 Atherosclerotic heart disease of native coronary artery without angina pectoris; K21.9 Gastro-esophageal reflux disease without esophagitis; Z87.891 Personal history of nicotine dependence; Z88.1 Allergy status to other antibiotic agents; Z88.5 Allergy status to narcotic agent; Z88.8 Allergy status to other drugs, medicaments and biological substances; Z79.01 Long term (current) use of anticoagulants; Z79.899 Other long term (current) drug therapy; W10.9XXA Fall (on) (from) unspecified stairs and steps, initial encounter
CPT/HCPCS: 99285; 96365; 36415; 93005; 86900; 86901; 80053; 82150; 82550; 82553; 83605; 83690; 84484; 85025; 85610; 85730; 86850; 81001; 80306; 80320; 72170; 73030; 73060; 73090; 71045; 72125; 70486; 70450; 71260; 74177; Q9967; J0131

== ENCOUNTER 2017-06-08 22:16 | Inpatient (IN) | payer MEDICARE ==
[2017-06-08] MEDS ORDERED: ACETAMINOPHEN TAB 325 MG TAB PO PRN (23:36)
[2017-06-08] MEDS ORDERED: NALOXONE 0.4 MG/ML 1 ML VIAL IV PRN (23:36)
[2017-06-08] MEDS ORDERED: ONDANSETRON 4 MG/2 ML VIAL IVP PRN (23:36)
--- NOTE | 2017-06-08 23:58 | ED ---
General Adult HPI - General Chief complaint: Fall Stated complaint: revisit Time Seen by Provider: 06/08/17 22:20 Source: patient, RN notes reviewed, old records reviewed Mode of arrival: ambulatory Limitations: physical limitation - History of Present Illness Initial comments: 71-year-old female presents for reevaluation status post fall. Patient was seen in the emergency department earlier this evening for fall down 6 or 7 stairs. She is complaining of pain in her groin and lower pelvis. She was discharged home and states she had difficulty ambulating without pain. She felt somewhat weak. Denied any chest pain or shortness of breath. Denied any new pain status post a fall. She was placed in a sling for her left radial head fracture, no other injuries were identified on workup. - Related Data Home Medications Medication Instructions Recorded Confirmed Carvedilol 12.5 mg PO BID 07/16/14 06/08/17 Citalopram Hydrobromide [CeleXA] 40 mg PO HS 07/16/14 06/08/17 Spironolactone 50 mg PO BID 07/16/14 06/08/17 Torsemide [Demadex] 100 mg PO DAILY 07/16/14 06/08/17 Potassium Chloride ER [K-Dur 20] 40 meq PO DAILY 11/20/14 06/08/17 Ranitidine HCl [Zantac] 150 mg PO BID 06/27/16 06/08/17 Rivaroxaban [Xarelto] 20 mg PO DAILY 06/27/16 06/08/17 ALPRAZolam [Xanax] 2 mg PO HS PRN 05/05/17 06/08/17 HYDROcodone/APAP 5-325MG [[place] 0.5 - 1 tab PO Q4HR PRN 05/05/17 06/08/17 5-325] Allopurinol [Zyloprim] 100 mg PO DAILY 06/08/17 06/08/17 Previous Rx's Medication Instructions Recorded Colchicine 0.6 mg PO DAILY #12 capsule 05/05/17 Allergies Allergy/AdvReac Type Severity Reaction Status Date / Time cephalexin monohydrate Allergy Rash/Hives Verified 06/08/17 22:22 [From Keflex] lisinopril Allergy Rash/Hives Verified 06/08/17 22:22 morphine Allergy Rash/Hives/ Verified 06/08/17 22:22 Sob warfarin [From Coumadin] Allergy Rash/Hives Verified 06/08/17 22:22 codeine AdvReac Nausea & Verified 06/08/17 22:22 Vomiting hydrocodone [From [place]] AdvReac Nausea & Verified 06/08/17 22:22 Vomiting Review of Systems ROS Statement: Those systems with pertinent positive or pertinent negative responses have been documented in the HPI. ROS Other: All systems not noted in ROS Statement are negative. 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 IN [place] 10/02/14 TO CHECK AICD Past Anesthesia/Blood Transfusion Reactions: Motion Sickness Type of Cardiac Device: Permanent Pacemaker, AICD Device Placement Date:: 2011 Past Psychological History: No Psychological Hx Reported Smoking Status: Former smoker Past Alcohol Use History: None Reported Past Drug Use History: None Reported - Past Family History Mother Family Medical History: No Reported History General Exam Limitations: physical limitation General appearance: alert, in no apparent distress Head exam: Present: atraumatic, normocephalic Eye exam: Present: normal appearance, PERRL ENT exam: Present: normal exam Neck exam: Present: normal inspection, full ROM. Absent: tenderness, meningismus Respiratory exam: Present: normal lung sounds bilaterally. Absent: respiratory distress, wheezes Cardiovascular Exam: Present: regular rate, normal rhythm GI/Abdominal exam: Present: soft. Absent: distended, tenderness Extremities exam: Present: other (Tenderness to palpation in the left elbow, patient is currently in a sling. Pain with internal and external rotation of both lower extremities.). Absent: joint swelling Back exam: Present: normal inspection. Absent: full ROM, tenderness Neurological exam: Present: alert, oriented X3, CN II-XII intact. Absent: motor sensory deficit Psychiatric exam: Present: normal affect, normal mood Skin exam: Present: warm, dry, intact. Absent: cyanosis, diaphoretic Course Vital Signs 06/08/17 22:30 Temperature 98.3 F Pulse Rate 68 Respiratory 18 Rate Blood Pressure 109/57 O2 Sat by Pulse 93 L Oximetry Medical Decision Making - Medical Decision Making 71-year-old female presenting for reevaluation status post fall with pain in her groin pelvis and elbow. Patient had difficulty in breathing, difficulty getting out of her car. She presented for reevaluation approximately 45 minutes after discharge. X-rays from previous ER visit were reviewed, head CT negative for intracranial hemorrhage, so CT cervical spine negative for fracture or subluxation. CT chest abdomen pelvis is negative for any acute intrathoracic, intra-abdominal or pelvic injuries. X-rays of the pelvis, shoulder, and chest are unremarkable. Facial bone CT is negative for acute bony abnormality. X-ray humerus to show a left radial head fracture. Patient was placed in a sling for this prior to discharge. Laboratory studies reviewed , the only acute abnormality was a creatinine 1.8 from baseline of 1. Patient will be placed in observation for trauma surgery evaluation, orthopedic surgery evaluation, and physical therapy for evaluation of gait. She was started on IV fluids for elevated creatinine and acute kidney injury, repeat laboratory studies will be obtained in the morning. Disposition Clinical Impression: Fall, Left hip pain, Left radial head fracture, Acute renal insufficiency Disposition: ADMITTED IP TO THIS [facility] Condition: Stable Referrals: Basil Crowell DO [Primary Care Provider] - 1-2 days Decision to Admit Reason: Admit from EC Decision Date: 06/08/17 Decision Time: 23:58
[2017-06-09] MEDS: SODIUM CHLORIDE 0.9% 1,000 ML IV SCH (00:14)
[2017-06-09] MEDS ORDERED: KETOROLAC 30 MG/ML 1 ML VIAL IVP STA (03:08)
[2017-06-09] MEDS: CITALOPRAM HYDROBROMIDE 20 MG TAB PO SCH ×2 (03:15→21:01)
[2017-06-09] MEDS: ALPRAZolam 0.5 MG TAB PO PRN (03:33)
[2017-06-09] MEDS: HYDROcodone/APAP 5-325MG 1 EACH TAB PO PRN ×2 (04:46→18:35)
[2017-06-09] MEDS: CARVEDILOL 6.25 MG TAB PO SCH ×3 (05:04→21:01)
[2017-06-09 07:00] LABS: Basophils # (A) 0.1 k/uL (0-0.2); Basophils % (A) 1 %; Eosinophils % (A) 0 %; HGB 11.8 gm/dL (11.4-16.0); Lymphocytes # (A) 0.9 k/uL (1.0-4.8); Lymphocytes % (A) 12 %; MCH 31.2 pg (25.0-35.0); MCHC 31.9 g/dL (31.0-37.0); MCV 97.6 fL (80.0-100.0); Monocytes # (A) 0.4 k/uL (0-1.0); Monocytes % (A) 5 %; Neutrophils # (A) 6.3 k/uL (1.3-7.7); Neutrophils % (A) 80 %; Platelet Count 208 k/uL (150-450); RBC 3.79 m/uL (3.80-5.40); RDW 14.3 % (11.5-15.5); WBC 7.9 k/uL (3.8-10.6)
[2017-06-09 07:19] LABS: Albumin 3.3 g/dL (3.5-5.0); Calcium 8.7 mg/dL (8.4-10.2); Magnesium 2.2 mg/dL (1.6-2.3); Potassium 5.1 mmol/L (3.5-5.1); Total Bilirubin 0.6 mg/dL (0.2-1.3); Total Protein 6.1 g/dL (6.3-8.2)
[2017-06-09] MEDS ORDERED: MECLIZINE 12.5 MG TAB PO PRN (10:55)
--- NOTE | 2017-06-09 12:10 | P.GSHP ---
History of Present Illness H&P Date: 06/09/17 Chief Complaint: Fall Down 6 steps This is a 71-year-old female who initially presented to the emergency room after a fall down steps. She states she was dragging a box of [employer] decorations back to the basement when she slipped and fell. She has unknown whether she lost consciousness she does not think she did. GCS is 15 upon arrival. She is complaining of pain in her left arm. She was cleared by the emergency room and discharged home however she returned to the emergency room later that night with a complaint of hip pain and difficulty walking because of this. She did multiple images of her pelvis which showed no fractures. No dislocations. She states that she normally has some arthritis in her hips but this pain is worse than her normal arthritic pain. She is normally able to go up and down stairs and walk on her own. She denies any abdominal pain she denies any chest pain she has no other pain or complaints. 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 [facility] [place] 10/02/14 TO CHECK AICD Past Anesthesia/Blood Transfusion Reactions: Motion Sickness Type of Cardiac Device: Permanent Pacemaker, AICD Device Placement Date:: 2011 Past Psychological History: Anxiety Smoking Status: Former smoker Past Alcohol Use History: None Reported Additional Past Alcohol Use History / Comment(s): STARTED SMOKING AGE 19(1963) AND QUIT 2003 WAS 1/2 PPD Past Drug Use History: None Reported - Past Family History Mother Family Medical History: CVA/TIA Medications and Allergies Home Medications Medication Instructions Recorded Confirmed Type Citalopram Hydrobromide [CeleXA] 40 mg PO HS 07/16/14 06/09/17 History Torsemide [Demadex] 100 mg PO DAILY 07/16/14 06/09/17 History Potassium Chloride ER [K-Dur 20] 40 meq PO BID 11/20/14 06/09/17 History Ranitidine HCl [Zantac] 150 mg PO BID PRN 06/27/16 06/08/17 History Rivaroxaban [Xarelto] 20 mg PO DAILY 06/27/16 06/09/17 History ALPRAZolam [Xanax] 2 mg PO HS PRN 05/05/17 06/09/17 History HYDROcodone/APAP 5-325MG [[place] 0.5 - 1 tab PO Q4HR PRN 05/05/17 06/08/17 History 5-325] Carvedilol [Coreg] 6.25 mg PO BID 06/09/17 06/09/17 History Colchicine 0.6 mg PO DAILY PRN 06/09/17 06/08/17 History Spironolactone 100 mg PO DAILY 06/09/17 06/09/17 History Allergies Allergy/AdvReac Type Severity Reaction Status Date / Time cephalexin monohydrate Allergy Rash/Hives Verified 06/08/17 22:22 [From Keflex] lisinopril Allergy Rash/Hives Verified 06/08/17 22:22 morphine Allergy Rash/Hives/ Verified 06/08/17 22:22 Sob warfarin [From Coumadin] Allergy Rash/Hives Verified 06/08/17 22:22 codeine AdvReac Nausea & Verified 06/08/17 22:22 Vomiting hydrocodone [From [place]] AdvReac Nausea & Verified 06/08/17 22:22 Vomiting Surgical - Exam Osteopathic Statement: *. No significant issues noted on an osteopathic structural exam other than those noted in the History and Physical/Consult. Vital Signs Temp Pulse Resp BP Pulse Ox 98.3 F 68 18 109/57 93 L 06/08/17 22:30 06/08/17 22:30 06/08/17 22:30 06/08/17 22:30 06/08/17 22:30 - General well developed, well nourished, no distress - Eyes PERRL, normal ocular movement - ENT normal pinna, normal nares, normal mucosa, no hearing loss, no congestion - Neck no masses, no bruits, trachea midline - Respiratory No tenderness to palpation on chest normal expansion, normal respiratory effort, clear to percussion - Cardiovascular Heart Rate: 60 - Abdomen Abdomen: soft, non tender - Neurologic GCS 15 AAOx3 normal coordination, normal sensation - Musculoskeletal Tenderness in bilateral hips to palpation. - Psychiatric oriented to time, oriented to person, oriented to place Results - Labs 06/09/17 06:18 06/09/17 06:18 Abnormal Lab Results - Last 24 Hours (Table) 06/09/17 06/09/17 Range/Units 06:18 06:18 RBC 3.79 L (3.80-5.40) m/uL Lymphocytes # 0.9 L (1.0-4.8) k/uL Carbon Dioxide 21 L (22-30) mmol/L BUN 38 H (7-17) mg/dL Creatinine 1.76 H (0.52-1.04) mg/dL Glucose 102 H (74-99) mg/dL Total Protein 6.1 L (6.3-8.2) g/dL Albumin 3.3 L (3.5-5.0) g/dL Diabetes panel 06/09/17 Range/Units 06:18 Sodium 137 (137-145) mmol/L Potassium 5.1 (3.5-5.1) mmol/L Chloride 106 (98-107) mmol/L Carbon Dioxide 21 L (22-30) mmol/L BUN 38 H (7-17) mg/dL Creatinine 1.76 H (0.52-1.04) mg/dL Glucose 102 H (74-99) mg/dL Calcium 8.7 (8.4-10.2) mg/dL AST 26 (14-36) U/L ALT 29 (9-52) U/L Alkaline Phosphatase 97 (38-126) U/L Total Protein 6.1 L (6.3-8.2) g/dL Albumin 3.3 L (3.5-5.0) g/dL Calcium panel 06/09/17 Range/Units 06:18 Calcium 8.7 (8.4-10.2) mg/dL Albumin 3.3 L (3.5-5.0) g/dL Pituitary panel 06/09/17 Range/Units 06:18 Sodium 137 (137-145) mmol/L Potassium 5.1 (3.5-5.1) mmol/L Chloride 106 (98-107) mmol/L Carbon Dioxide 21 L (22-30) mmol/L BUN 38 H (7-17) mg/dL Creatinine 1.76 H (0.52-1.04) mg/dL Glucose 102 H (74-99) mg/dL Calcium 8.7 (8.4-10.2) mg/dL Adrenal panel 06/09/17 Range/Units 06:18 Sodium 137 (137-145) mmol/L Potassium 5.1 (3.5-5.1) mmol/L Chloride 106 (98-107) mmol/L Carbon Dioxide 21 L (22-30) mmol/L BUN 38 H (7-17) mg/dL Creatinine 1.76 H (0.52-1.04) mg/dL Glucose 102 H (74-99) mg/dL Calcium 8.7 (8.4-10.2) mg/dL Total Bilirubin 0.6 (0.2-1.3) mg/dL AST 26 (14-36) U/L ALT 29 (9-52) U/L Alkaline Phosphatase 97 (38-126) U/L Total Protein 6.1 L (6.3-8.2) g/dL Albumin 3.3 L (3.5-5.0) g/dL - Imaging Chest x-ray: report reviewed Abdominal x-ray: report reviewed CT scan - abdomen: report reviewed, image reviewed CT scan - pelvis: report reviewed Assessment and Plan Assessment: Fall down multiple steps with left radial head fracture and bilateral hip pain. Plan: Patient has isolated orthopedic trauma to her left radial head along with some pelvic pain with weightbearing. Patient stable from a trauma surgery standpoint be transferred to the medical service. Orthopedic surgery was consulted and pending recommendation. Physical therapy and occupational therapy to see patient and evaluate.
--- NOTE | 2017-06-09 13:42 | P.CNOR ---
History of Present Illness - [facility] Consult date: 06/09/17 Consult reason: fracture (Left radial head fracture) History of present illness: The patient is a 71 year old female that presented to the emergency department yesterday after sustaining a fall at home down a flight of stairs. She was found to have a left radial head fracture and multiple scans were completed. The patient was discharged home but the patient was unable to get out of the car due to left hip pain. The patient's did return the patient to the hospital and she was admitted to observation. We were consulted for the left radial head fracture and left hip pain. The patient is currently in a arm sling. She is left-handed and is currently using the left arm to eat lunch. The patient states that her arm is painful. She denies any injuries to the right side and denies hitting her head. Review of Systems Constitutional: Denies chills, Denies fever, Denies lethargy Cardiovascular: Denies chest pain, Denies shortness of breath Respiratory: Denies cough Gastrointestinal: Denies abdominal pain, Denies nausea, Denies vomiting Musculoskeletal: left: elbow pain, hip pain Neurological: Denies syncope Past Medical History Past Medical History: Atrial Fibrillation, Coronary Artery Disease (CAD), Cancer , GERD/Reflux, Pneumonia Additional Past Medical History / Comment(s): melanoma cancer of the nose with removal, OCC PSORIASIS/DRY SKIN, NOW MILD ON BOTTOM FEET.SLIGHT STRESS INCONTINENCE @ TIMES, cardiomyopathy,gout 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 IN [place] 10/02/14 TO CHECK AICD Past Anesthesia/Blood Transfusion Reactions: Motion Sickness Type of Cardiac Device: Permanent Pacemaker, AICD Device Placement Date:: 2011 Past Psychological History: Anxiety Smoking Status: Former smoker Past Alcohol Use History: None Reported Additional Past Alcohol Use History / Comment(s): STARTED SMOKING AGE 19(1963) AND QUIT 2003 WAS 1/2 PPD Past Drug Use History: None Reported - Past Family History Mother Family Medical History: CVA/TIA Father Additional Family Medical History / Comment(s): Father from old age. Daughter(s) Additional Family Medical History / Comment(s): Patient has 2 adult children with no major medical problems. Medications and Allergies Home Medications Medication Instructions Recorded Confirmed Type Citalopram Hydrobromide [CeleXA] 40 mg PO HS 07/16/14 06/09/17 History Torsemide [Demadex] 100 mg PO DAILY 07/16/14 06/09/17 History Potassium Chloride ER [K-Dur 20] 40 meq PO BID 11/20/14 06/09/17 History Ranitidine HCl [Zantac] 150 mg PO BID PRN 06/27/16 06/08/17 History Rivaroxaban [Xarelto] 20 mg PO DAILY 06/27/16 06/09/17 History ALPRAZolam [Xanax] 2 mg PO HS PRN 05/05/17 06/09/17 History HYDROcodone/APAP 5-325MG [[place] 0.5 - 1 tab PO Q4HR PRN 05/05/17 06/08/17 History 5-325] Carvedilol [Coreg] 6.25 mg PO BID 06/09/17 06/09/17 History Colchicine 0.6 mg PO DAILY PRN 06/09/17 06/08/17 History Spironolactone 100 mg PO DAILY 06/09/17 06/09/17 History Allergies Allergy/AdvReac Type Severity Reaction Status Date / Time cephalexin monohydrate Allergy Rash/Hives Verified 06/08/17 22:22 [From Keflex] lisinopril Allergy Rash/Hives Verified 06/08/17 22:22 morphine Allergy Rash/Hives/ Verified 06/08/17 22:22 Sob warfarin [From Coumadin] Allergy Rash/Hives Verified 06/08/17 22:22 codeine AdvReac Nausea & Verified 06/08/17 22:22 Vomiting hydrocodone [From [place]] AdvReac Nausea & Verified 06/08/17 22:22 Vomiting Physical Examination The patient is a 71-year-old female who is in no acute distress. She is alert and oriented 3. Patient's head is normocephalic atraumatic. There is cervical tenderness upon palpation no step-offs noted. Exam of the bilateral upper extremities reveal no pain upon range of motion or obvious deformity to the right upper extremity. There is tenderness upon palpation to the left radial head. There is no left shoulder, wrist, or hand tenderness. Exam of the right lower extremity reveals no obvious deformity or pain upon range of motion. Exam of the left lower extremity reveals pain to the lateral hip. There is pain upon logrolling and range of motion of the hip joint. No pain to the left knee or ankle. Bilateral calves are soft and nontender. There is good foot and ankle motion. Circulatory and neurovascular status is intact to the bilateral lower and upper extremities. Results - Labs Labs: Abnormal Lab Results - Last 24 Hours (Table) 06/09/17 06/09/17 Range/Units 06:18 06:18 RBC 3.79 L (3.80-5.40) m/uL Lymphocytes # 0.9 L (1.0-4.8) k/uL Carbon Dioxide 21 L (22-30) mmol/L BUN 38 H (7-17) mg/dL Creatinine 1.76 H (0.52-1.04) mg/dL Glucose 102 H (74-99) mg/dL Total Protein 6.1 L (6.3-8.2) g/dL Albumin 3.3 L (3.5-5.0) g/dL H & H 06/09/17 Range/Units 06:18 Hgb 11.8 (11.4-16.0) gm/dL Hct 37.0 (34.0-46.0) % Result Diagrams: 06/09/17 06:18 06/09/17 06:18 - Diagnostic results Elbow x-ray: image reviewed (Nondisplaced radial head fracture on the left.) Hip x-ray: image reviewed (No fracture seen.) Assessment and Plan (1) Fall Current Visit: Yes Status: Acute Code(s): W19.XXXA - UNSPECIFIED FALL, INITIAL ENCOUNTER SNOMED Code(s): 3972114 (2) Left hip pain Current Visit: Yes Status: Acute Code(s): M25.552 - PAIN IN LEFT HIP SNOMED Code(s): 54604974 (3) Left radial head fracture Current Visit: Yes Status: Acute Code(s): S52.122A - DISP FX OF HEAD OF LEFT RADIUS, INIT FOR CLOS FX SNOMED Code(s): 197282321 Plan: The clinical, x-ray and CT findings were discussed with the patient and the patient's . The patient was placed in a OCL splint to the left upper extremity. Arm sling reapplied. A CT of the left hip with and without contrast was ordered. PT and OT evaluations are pending. The patient may discharge home if CT is negative and she is able to ambulate. She will follow- up with Dr. James in 1 week. We will continue to follow patient closely while she is in hospital.
[2017-06-09] MEDS ORDERED: COLCHICINE 0.6 MG TAB PO PRN (14:21)
[2017-06-09] MEDS ORDERED: FAMOTIDINE 20 MG TAB PO PRN (14:21)
--- NOTE | 2017-06-09 14:29 | P.HPIM ---
History of Present Illness H&P Date: 06/09/17 Chief Complaint: Fall This is a 71-year-old female. Her primary care physician is Dr. Basil Crowell. She has a past medical history of hypotension, gastroesophageal reflux disease, coronary artery disease, carotid stenosis and cardiomyopathy status post AICD, gout, anxiety and depression. Patient states that she was moving a toe down the stairs one step at a time and started falling. She also had dizziness which she has had episodes for the past couple weeks that her sudden on onset and can happen at any time. She has been taking meclizine at home. She states she had a fall without loss of consciousness. She denies any seizure activity or history. She laid on the floor for about 5-6 minutes when she called for help. Her son and were in the house. She denies having any chest pain, palpitations, headache, blurred vision. She was initially seen in the emergency center on June 08 at 1700. Lactic acid was 1.3, sodium 134, BUN 39 and creatinine 1.8, urinalysis was clear with leukoesterase large. Urine drug screen was positive for benzodiazepines. Alcohol level was less than 10. Troponin was negative. EKG was a sinus rhythm with no acute ST-T wave changes. She was found on x-ray to have a left radial head fracture and was prepared for discharge home. Patient states she got into the car and she was not able to move and she told her bring her back to the emergency center where she was subsequently admitted to the observation unit. Patient is complaining of pain to the left pelvic groin area pelvic x-rays were negative as well as CAT scan of the abdomen and pelvis were negative. Review of Systems All systems: negative Constitutional: Denies chills, Denies fever Eyes: denies blurred vision, denies pain Ears, nose, mouth and throat: Reports vertigo, Denies headache, Denies sore throat Cardiovascular: Denies chest pain, Denies shortness of breath, Denies syncope Respiratory: Denies cough, Denies cough with sputum, Denies dyspnea, Denies excessive sputum, Denies hemoptysis, Denies home oxygen Gastrointestinal: Denies abdominal pain, Denies diarrhea, Denies nausea, Denies vomiting Genitourinary: Denies dysuria, Denies hematuria Musculoskeletal: Denies myalgias Integumentary: Denies pruritus, Denies rash Neurological: Denies numbness, Denies weakness Psychiatric: Denies anxiety, Denies depression Endocrine: Denies fatigue, Denies weight change Past Medical History Past Medical History: Atrial Fibrillation, Coronary Artery Disease (CAD), Cancer , GERD/Reflux, Pneumonia Additional Past Medical History / Comment(s): 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 [place] 10/02/14 TO CHECK AICD Past Anesthesia/Blood Transfusion Reactions: Motion Sickness Type of Cardiac Device: Permanent Pacemaker, AICD Device Placement Date:: 2011 Past Psychological History: Anxiety, Depression Smoking Status: Former smoker Past Alcohol Use History: None Reported Additional Past Alcohol Use History / Comment(s): STARTED SMOKING AGE 19(1965) AND QUIT 2003 WAS 1/2 PPD. No alcohol or illicit drug use. Patient is and lives at home with her . Past Drug Use History: None Reported - Past Family History Mother Family Medical History: CVA/TIA Additional Family Medical History / Comment(s): Mother from old age. Father Additional Family Medical History / Comment(s): Father from old age. Daughter(s) Additional Family Medical History / Comment(s): Patient has 2 adult children with no major medical problems. Medications and Allergies Home Medications Medication Instructions Recorded Confirmed Type Citalopram Hydrobromide [CeleXA] 40 mg PO HS 07/16/14 06/09/17 History Torsemide [Demadex] 100 mg PO DAILY 07/16/14 06/09/17 History Potassium Chloride ER [K-Dur 20] 40 meq PO BID 11/20/14 06/09/17 History Ranitidine HCl [Zantac] 150 mg PO BID PRN 06/27/16 06/08/17 History Rivaroxaban [Xarelto] 20 mg PO DAILY 06/27/16 06/09/17 History ALPRAZolam [Xanax] 2 mg PO HS PRN 05/05/17 06/09/17 History HYDROcodone/APAP 5-325MG [[place] 0.5 - 1 tab PO Q4HR PRN 05/05/17 06/08/17 History 5-325] Carvedilol [Coreg] 6.25 mg PO BID 06/09/17 06/09/17 History Colchicine 0.6 mg PO DAILY PRN 06/09/17 06/08/17 History Spironolactone 100 mg PO DAILY 06/09/17 06/09/17 History Allergies Allergy/AdvReac Type Severity Reaction Status Date / Time cephalexin monohydrate Allergy Rash/Hives Verified 06/08/17 22:22 [From Keflex] lisinopril Allergy Rash/Hives Verified 06/08/17 22:22 morphine Allergy Rash/Hives/ Verified 06/08/17 22:22 Sob warfarin [From Coumadin] Allergy Rash/Hives Verified 06/08/17 22:22 codeine AdvReac Nausea & Verified 06/08/17 22:22 Vomiting hydrocodone [From [place]] AdvReac Nausea & Verified 06/08/17 22:22 Vomiting Physical Exam Vitals: Vital Signs Temp Pulse Pulse Resp BP BP Pulse Ox 06/09/17 08:00 66 16 06/09/17 07:31 98.1 F 66 16 104/64 92 L 06/09/17 02:04 16 06/09/17 01:00 98.1 F 67 16 127/72 95 06/08/17 22:30 98.3 F 68 18 109/57 93 L Intake and Output 06/08/17 06/09/17 06/09/17 22:59 06:59 14:59 Intake Total 400 Balance 400 Intake: Oral 400 Other: Voiding Method Bedpan Bedpan # Voids 2 Weight 78.471 kg 78.4 kg Gen: This is a 71-year-old female. She is seen in bed and appears to be comfortable. HEENT: Head is atraumatic, normocephalic. Pupils equal, round. Sclerae is anicteric. NECK: Supple. No JVD. No lymphadenopathy. No thyromegaly. LUNGS: Clear to auscultation. No wheezes or rhonchi. No intercostal retractions. HEART: Regular rate and rhythm. No murmur. ABDOMEN: Soft. Bowel sounds are present. No masses. No tenderness. EXTREMITIES: No pedal edema. No calf tenderness. Tenderness to the left groin. NEUROLOGICAL: Patient is awake, alert and oriented x3. Cranial nerves 2 through 12 are grossly intact. Results CBC & Chem 7: 06/09/17 06:18 06/09/17 06:18 Labs: Abnormal Lab Results - Last 24 Hours (Table) 06/09/17 06/09/17 Range/Units 06:18 06:18 RBC 3.79 L (3.80-5.40) m/uL Lymphocytes # 0.9 L (1.0-4.8) k/uL Carbon Dioxide 21 L (22-30) mmol/L BUN 38 H (7-17) mg/dL Creatinine 1.76 H (0.52-1.04) mg/dL Glucose 102 H (74-99) mg/dL Total Protein 6.1 L (6.3-8.2) g/dL Albumin 3.3 L (3.5-5.0) g/dL Thrombosis Risk Factor Assmnt - DVT/VTE Prophylaxis DVT/VTE Prophylaxis: Pharmacologic Prophylaxis ordered - Choose All That Apply Each Risk Factor Represents 2 Points: Age 61-74 years Thrombosis Risk Factor Assessment Total Risk Factor Score: 2 Thrombosis Risk Factor Assessment Level: Low Risk Assessment and Plan Plan: 1. Dehydration and acute kidney injury. Continue IV fluids at 100 mL per hour. Recheck electrolytes and kidney function in the morning. Avoid nephrotoxic agents. 2. Fall on stairs causing left radial fracture. Orthopedics is on consult. Patient seen by general surgeon and cleared for transfer under medicine services. Physical therapy ordered. 3. Left groin pain with negative x-ray of the pelvis and CT. Most likely pain secondary to muscle strain. 4. Cardiomyopathy status post AICD placement. 5. History of carotid stenosis. Continue Xarelto. 6. Gastrointestinal prophylaxis. Continue Protonix and Pepcid 7. DVT prophylaxis. Continue Xarelto. Discharge plan: Home tomorrow. Impression and plan of care have been directed as dictated by the signing physician. Nancy Olivera nurse practitioner acting as scribe for signing physician.
[2017-06-09] MEDS ORDERED: RX INFO: IV CONTRAST WAS GIVEN 1 EACH MISC MISCELLANE PRN (16:20)
--- NOTE | 2017-06-09 18:42 | CT ---
EXAMINATION TYPE: CT hip LT wo con DATE OF EXAM: 06/09/2017 COMPARISON: NONE HISTORY: Left sided hip and pelvic pain CT DLP: 885 mGycm Automated exposure control for dose reduction was used. FINDINGS: There are nondisplaced fractures of the left superior and inferior pubic rami. The proximal left femu r is intact. There is no sign of hip dysplasia. Left sacroiliac joint is intact. There is some strand ing in the pelvis on the left side. IMPRESSION: ACUTE FRACTURES OF THE LEFT SUPERIOR AND INFERIOR PUBIC RAMI APPEAR NEW COMPARED TO CT SCAN YESTERDAY . THERE IS NEW STRANDING IN THE PELVIS CONSISTENT WITH HEMORRHAGE OR FLUID.
--- NOTE | 2017-06-09 18:49 | ECHOF ---
Referral Reason:LVF MEASUREMENTS -------- HEIGHT: 162.6 cm WEIGHT: 78.0 kg BP: IVSd: 1.2 cm (0.6 - 1.1) LVIDd: 5.1 cm (3.9 - 5.3) LVPWd: 1.2 cm (0.6 - 1.1) IVSs: 1.4 cm LVIDs: 5.1 cm LVPWs: 1.2 cm Ao Diam: 3.2 cm (2.0 - 3.7) AV Cusp: 2.3 cm (1.5 - 2.6) LA Diam: 2.5 cm (2.7 - 3.8) MV EXCURSION: 17.354 mm (> 18.000) MV EF SLOPE: 63 mm/s (70 - 150) EPSS: 1.1 cm MV E Gregory: 0.63 m/s MV DecT: 112 ms MV A Gregory: 0.96 m/s MV E/A Ratio: 0.66 RAP: 5.00 mmHg RVSP: 36.49 mmHg FINDINGS -------- AICD Pacemaker This was a technically difficult study with suboptimal views. Pt unable to turn due to broken arm. The left ventricular size is normal. There is mild concentric left ventricular hypertrophy. There is moderate global hypokinesis of LV . Overall left ventricular systolic function is moderate-kenn rely impaired with, an EF between 30 - 35 %. The right ventricle is normal in size and function. The left atrium is normal in size. The right atrium is normal in size. 1.5mg of Definity was utilized for enhancement of images Aortic valve is trileaflet and is mildly thickened. The mitral valve leaflets are mildly thickened. Mild mitral annular calcification present. Modera te mitral regurgitation is present. Mild tricuspid regurgitation present. The right ventricular systolic pressure, as measured by Doppl er, is 36.49mmHg. Pulmonic valve appears structurally normal. The aortic root size is normal. Echo free space represents a pericardial fat pad. CONCLUSIONS -------- 1. AICD 2. Pacemaker 3. This was a technically difficult study with suboptimal views. 4. Pt unable to turn due to broken arm. 5. The left ventricular size is normal. 6. There is mild concentric left ventricular hypertrophy. 7. There is moderate global hypokinesis of LV . 8. Overall left ventricular systolic function is moderate-severely impaired with, an EF between 30 - 35 %. 9. The right ventricle is normal in size and function. 10. The left atrium is normal in size. 11. The right atrium is normal in size. 12. 1.5mg of Definity was utilized for enhancement of images 13. Aortic valve is trileaflet and is mildly thickened. 14. The mitral valve leaflets are mildly thickened. 15. Mild mitral annular calcification present. 16. Moderate mitral regurgitation is present. 17. Mild tricuspid regurgitation present. 18. The right ventricular systolic pressure, as measured by Doppler, is 36.49mmHg. 19. Pulmonic valve appears structurally normal. 20. The aortic root size is normal. 21. Echo free space represents a pericardial fat pad. OPHTHALMIC MEDICAL TECHNOLOGIST: Denae Shook RDCS
[2017-06-09 23:17] VITALS: BMI 29.6
[2017-06-10] MEDS: HYDROcodone/APAP 5-325MG 1 EACH TAB PO PRN ×3 (00:37→20:27)
--- NOTE | 2017-06-10 08:01 | P.PN ---
Subjective Progress Note Date: 06/10/17 Principal diagnosis: Left radial head fracture and left pubic rami fractures This is a 71 year-old female who was found to have a left radial head fracture after sustaining a fall at home on 06/08/2017. She was unable get out of the care and was admitted for further evaluation and care. She underwent a hip CT yesterday and a superior and inferior pubic rami fractures were found. The patient denies nausea, vomiting, abdominal pain, shortness of breath, and chest pain this morning. She states her pain is moderately controlled at this time. Physical and occupational therapy were in the room during my evaluation. Objective - Vital Signs Vital signs: Vital Signs Temp 98.0 F 06/10/17 04:00 Pulse 79 06/10/17 04:00 Resp 16 06/10/17 04:32 BP 125/64 06/10/17 04:00 Pulse Ox 93 L 06/10/17 04:32 Intake & Output 06/09/17 06/10/17 06/10/17 18:59 06:59 18:59 Intake Total 1036 Balance 1036 Intake: Oral 1036 Other: Voiding Method Bedpan Bedpan # Voids 2 3 - Exam The patient is a 71-year-old female who is in no acute distress. She is alert and oriented 3. OCL splint is intact to the left upper extremity. There is no left shoulder, wrist, or hand tenderness. Exam of the right lower extremity reveals no obvious deformity or pain upon range of motion. Exam of the left lower extremity reveals pain to the lateral hip. There is pain upon logrolling and range of motion of the hip joint. No pain to the left knee or ankle. Bilateral calves are soft and nontender. There is good foot and ankle motion. Circulatory and neurovascular status is intact to the bilateral lower and upper extremities. - Labs CBC & Chem 7: 06/09/17 06:18 06/10/17 07:14 Assessment and Plan (1) Fall Current Visit: Yes Status: Acute Code(s): W19.XXXA - UNSPECIFIED FALL, INITIAL ENCOUNTER SNOMED Code(s): 5676405 (2) Left hip pain Current Visit: Yes Status: Acute Code(s): M25.552 - PAIN IN LEFT HIP SNOMED Code(s): 65308027 (3) Left radial head fracture Current Visit: Yes Status: Acute Code(s): S52.122A - DISP FX OF HEAD OF LEFT RADIUS, INIT FOR CLOS FX SNOMED Code(s): 942256922 (4) Fracture of pubic ramus Current Visit: Yes Status: Acute Code(s): S32.599A - OTH FRACTURE OF UNSP PUBIS, INIT ENCNTR FOR CLOSED FRACTURE SNOMED Code(s): 76169148 Plan: The clinical, x-ray and CT findings were discussed with the patient. No surgical intervention is needed at this time. Maintain OCL splint to left arm. Sling for comfort. Non-weightbearing to the left upper extremity and toe-touch weightbearing to the left lower extremity. The patient will need skilled rehab placement. Continue PT and OT evals. She will be placed in inpatient status per medical management. Continue pain control. We will continue to monitor the patient closely.
[2017-06-10 08:33] LABS: Calcium 8.4 mg/dL (8.4-10.2); Potassium 4.7 mmol/L (3.5-5.1)
[2017-06-10] MEDS: RIVAROXABAN 10 MG TAB PO SCH (09:13)
[2017-06-10] MEDS: SPIRONOLACTONE 25 MG TAB PO SCH (09:13)
[2017-06-10] MEDS: CARVEDILOL 6.25 MG TAB PO SCH ×2 (09:14→20:25)
[2017-06-10] MEDS: SODIUM CHLORIDE 0.9% 1,000 ML IV SCH ×3 (13:05→13:08)
--- NOTE | 2017-06-10 15:19 | P.CRDCN ---
<Eloina Royal - Last Filed: 06/10/17 14:59> History of Present Illness Consult date: 06/10/17 History of present illness: Mrs. Rahman is a pleasant 71-year-old female with past medical history significant for paroxysmal atrial fibrillation, coronary artery disease with subsequent bypass grafting, systolic heart failure, ischemic cardiomyopathy with AICD in place. She presented to the hospital after falling down some stairs and suffering a pelvic fracture as well as radial head fracture on the left side. She states she was taking ornaments downstairs when she became acutely dizzy and next thing she can recall she was on the floor at the bottom of the stairs. She denies chest pain, palpitations, diaphoresis, nausea or vomiting prior to falling or after falling. She states she has been mildly short of breath recently and it seems to be with exertion. This has been going on for the previous month. She states that her best recollection defibrillator has fired 3-4 times in the previous 6 weeks. She is pretty following at [facility] has not seen anyone in some time. EKG reveals sinus mechanism with nonspecific T-wave abnormalities in the septal leads as well as 0.[address] depression in the lateral leads. This is consistent with old EKG. Chest x-ray reveals cardiomegaly with no acute cardiopulmonary process. Laboratory data has been reviewed, hemoglobin 11.8, platelets 208, potassium 4.7 , proBNP 1,200, magnesium 2.2, BUN 31, creatinine 1.44 cardiac enzymes negative 1. Current cardiac medications include Demadex 100 mg daily, spironolactone 100 mg daily, Xarelto 20 mg daily, potassium chloride 40 twice a day, Coreg 6.25 mg twice a day. Most recent echocardiogram reveals moderate to severely impaired LV function with an EF of 30-35%, mild concentric left ventricular hypertrophy, moderate global hypokinesia of the left ventricle, mild TR, moderate MR, mildly thickened aortic valve, right ventricular systolic pressure 36.49 mmHg. Review of Systems At the time of my exam: CONSTITUTIONAL: Denies fever. Denies chills. EYES: Denies blurred vision. Denies vision changes. Denies eye pain. EARS, NOSE, MOUTH & THROAT: Denies headache. Denies sore throat. Denies ear pain. CARDIOVASCULAR: Denies chest pain. Denies shortness of breath. Denies orthopnea. Denies PND. Denies palpitations. RESPIRATORY: Denies cough. GASTROINTESTINAL: Denies abdominal pain. Denies diarrhea. Denies constipation. Denies nausea. Denies vomiting. MUSCULOSKELETAL: Complains of pelvic pain as well as pain in the left arm and shoulder. INTEGUMENTARY: Denies pruitis. Denies rash. NEUROLOGIC: Denies numbness. Denies tingling. Denies weakness. PSYCHIATRIC: Denies anxiety. Denies depression. ENDOCRINE: Denies fatigue. Denies weight change. Denies polydipsia. Denies polyurina. GENITOURINARY: Denies burning, hematuria or urgency with micturation. HEMATOLOGIC: Denies history of anemia. Denies bleeding. 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 IN [place] 10/02/14 TO CHECK AICD Past Anesthesia/Blood Transfusion Reactions: Motion Sickness Type of Cardiac Device: Permanent Pacemaker, AICD Device Placement Date:: 2011 Past Psychological History: Anxiety Smoking Status: Former smoker Past Alcohol Use History: None Reported Additional Past Alcohol Use History / Comment(s): STARTED SMOKING AGE 19(1965) AND QUIT 2003 WAS 1/2 PPD Past Drug Use History: None Reported - Past Family History Father Additional Family Medical History / Comment(s): Father from old age. Daughter(s) Additional Family Medical History / Comment(s): Patient has 2 adult children with no major medical problems. Mother Family Medical History: CVA/TIA Additional Family Medical History / Comment(s): Mother from old age. Medications and Allergies Home Medications Medication Instructions Recorded Confirmed Type Citalopram Hydrobromide [CeleXA] 40 mg PO HS 07/16/14 06/09/17 History Potassium Chloride ER [K-Dur 20] 40 meq PO BID 11/20/14 06/09/17 History Ranitidine HCl [Zantac] 150 mg PO BID PRN 06/27/16 06/08/17 History Rivaroxaban [Xarelto] 20 mg PO DAILY 06/27/16 06/09/17 History Carvedilol [Coreg] 6.25 mg PO BID 06/09/17 06/09/17 History Colchicine 0.6 mg PO DAILY PRN 06/09/17 06/08/17 History Spironolactone 100 mg PO DAILY 06/09/17 06/09/17 History ALPRAZolam [Xanax] 2 mg PO HS PRN #30 tablet 06/11/17 Rx Acetaminophen Tab [Tylenol] 650 mg PO Q6HR PRN tab 06/11/17 Rx Meclizine [Antivert] 12.5 mg PO TID PRN tab 06/11/17 Rx Torsemide [Demadex] 80 mg PO DAILY tab 06/11/17 Rx traMADol HCl [Ultram] 50 mg PO QID #100 tab 06/11/17 Rx Allergies Allergy/AdvReac Type Severity Reaction Status Date / Time cephalexin monohydrate Allergy Rash/Hives Verified 06/08/17 22:22 [From Keflex] lisinopril Allergy Rash/Hives Verified 06/08/17 22:22 morphine Allergy Rash/Hives/ Verified 06/08/17 22:22 Sob warfarin [From Coumadin] Allergy Rash/Hives Verified 06/08/17 22:22 codeine AdvReac Nausea & Verified 06/08/17 22:22 Vomiting hydrocodone [From Redmon] AdvReac Nausea & Verified 06/08/17 22:22 Vomiting Physical Exam Vitals: Vital Signs Temp Pulse Pulse Resp BP BP Pulse Ox 06/10/17 12:00 75 18 06/10/17 08:00 98.7 F 75 18 121/70 90 L 06/10/17 04:32 16 93 L 06/10/17 04:05 16 92 L 06/10/17 04:00 98.0 F 79 16 125/64 84 L 06/10/17 01:11 98.2 F 70 16 110/62 97 06/10/17 00:00 16 06/09/17 20:00 16 06/09/17 16:00 73 16 06/09/17 15:54 98.5 F 73 16 105/70 93 L Intake and Output 06/09/17 06/10/17 06/10/17 22:59 06:59 14:59 Intake Total 400 1340 Balance 400 1340 Intake: Intake, IV Titration 800 Amount Sodium Chloride 0.9% 1, 800 000 ml @ 100 mls/hr IV . Q10H [facility] Rx#:[id number] Oral 400 540 Other: Voiding Method Bedpan Bedpan Bedpan # Voids 3 3 1 Weight 78.4 kg Patient Weight 06/11/17 06:59 Weight 78.4 kg Blood pressure 129/63 heart rate 77 afebrile GENERAL: This is a 71-year-old female in no apparent distress at the time of my examination. HEENT: Head is atraumatic, normocephalic. Pupils are equal, round. Sclerae anicteric. Conjunctivae are clear. Mucous membranes of the mouth are moist. Neck is supple. There is no jugular venous distention. No carotid bruit is heard. LUNGS: Clear to auscultation no wheezes, rales or rhonchi. No chest wall tenderness is noted on palpation or with deep breathing. HEART: Regular rate and rhythm with faint systolic ejection murmur at the base, no rubs or gallops. S1 and S2 heard. ABDOMEN: Soft, nontender. Bowel sounds are heard. No organomegaly noted. EXTREMITIES: 2+ peripheral pulses with no evidence of peripheral edema and no calf tenderness noted. Sling and caste in place to left arm. NEUROLOGIC: Patient is awake, alert and oriented x3. Results 06/09/17 06:18 06/10/17 07:14 Comprehensive Metabolic Panel 06/10/17 Range/Units 07:14 Sodium 138 (137-145) mmol/L Potassium 4.7 (3.5-5.1) mmol/L Chloride 113 H (98-107) mmol/L Carbon Dioxide 18 L (22-30) mmol/L BUN 31 H (7-17) mg/dL Creatinine 1.44 H (0.52-1.04) mg/dL Glucose 96 (74-99) mg/dL Calcium 8.4 (8.4-10.2) mg/dL Current Medications Generic Name Dose Route Start Last Admin Trade Name Freq PRN Reason Stop Dose Admin Acetaminophen 650 mg 06/08/17 23:36 Tylenol Tab PO Q6HR PRN Mild Pain or Fever > 100.5 Hydrocodone Bitart/Acetaminophen 0.5 each 06/09/17 03:02 06/10/17 03:57 Redmon 5-325 PO 0.5 each Q4HR PRN Administration Pain Alprazolam 2 mg 06/09/17 03:02 06/09/17 03:33 Xanax PO 2 mg HS PRN Administration Anxiety Carvedilol 6.25 mg 06/09/17 03:03 06/10/17 09:14 Coreg PO 6.25 mg BID [facility] Administration Citalopram Hydrobromide 40 mg 06/09/17 03:04 06/09/17 21:01 Celexa PO 40 mg HS LULA Administration Colchicine 0.6 mg 06/09/17 14:21 Colcrys PO DAILY PRN pain Famotidine 20 mg 06/09/17 14:21 Pepcid PO BID PRN Heartburn Meclizine HCl 12.5 mg 06/09/17 10:55 06/09/17 11:27 Antivert PO 12.5 mg TID PRN Administration Vertigo Miscellaneous Information 1 each 06/09/17 16:20 Rx Info: Iv Contrast Was Given MISCELLANE 06/11/17 16:20 DAILY PRN Per Protocol Naloxone HCl 0.2 mg 06/08/17 23:36 Narcan IV Q2M PRN Opioid Reversal Ondansetron HCl 4 mg 06/08/17 23:36 Zofran IVP Q8HR PRN Nausea And Vomiting Rivaroxaban 20 mg 06/10/17 09:00 06/10/17 09:13 Xarelto PO 20 mg DAILY LULA Administration Spironolactone 100 mg 06/10/17 09:00 06/10/17 09:13 Aldactone PO 100 mg DAILY LULA Administration Intake and Output 06/09/17 06/10/17 06/10/17 22:59 06:59 14:59 Intake Total 400 1340 Balance 400 1340 Intake: Intake, IV Titration 800 Amount Sodium Chloride 0.9% 1, 800 000 ml @ 100 mls/hr IV . Q10H [facility] Rx#:[id number] Oral 400 540 Other: Voiding Method Bedpan Bedpan Bedpan # Voids 3 3 1 Weight 78.4 kg Patient Weight 06/11/17 06:59 Weight 78.4 kg 06/09/17 06:18 06/10/17 07:14 Assessment and Plan Assessment: ASSESSMENT 1. Ischemic cardiomyopathy AICD in place 2. Coronary artery disease a subsequent bypass grafting 3. Paroxysmal atrial fibrillation on long-term anticoagulation with Xarelto 4. Chronic systolic heart failure, ejection fraction 30-35% 5. Acute kidney injury PLAN AICD is [facility] [place], we will interrogate this for any episodes of VT or shocks that she has described. Fall may be related to hypotension. Will decreased demadex to 80 mg daily. If the blood pressure continues to be low coreg can be decreased as well. Follow up with her primary blender / cook upon discharge. Nurse Practitioner note has been reviewed, I agree with a documented findings and plan of care. Patient was seen and examined. <Tino Merino - Last Filed: 06/11/17 11:10> History of Present Illness History of present illness: Patient interviewed and examined in consultation. ICD was interrogated and she has not had any ventricular arrhythmias. Syncope most likely related to blood pressure changes. Demadex has been reduced. No other changes were made. Patient has advanced heart failure and should continue to follow with the heart failure team at [facility] as well as with Dr. VC Dickerson Please see full dictation by nurse practitioner Physical Exam Vitals: Vital Signs Temp Pulse Resp BP BP Pulse Ox 06/11/17 10:03 88 160/86 06/11/17 07:59 72 16 06/11/17 07:00 98.2 F 72 16 152/75 93 L 06/10/17 22:04 98.3 F 83 16 142/85 93 L 06/10/17 20:25 85 131/69 06/10/17 20:00 83 16 06/10/17 16:00 97.6 F 77 16 129/63 91 L 06/10/17 15:08 77 16 06/10/17 13:30 97.6 F 77 16 129/63 91 L 06/10/17 12:00 75 18 Intake and Output 06/10/17 06/11/17 06/11/17 22:59 06:59 14:59 Other: Voiding Method Bedpan Bedpan # Voids 1 5 1 Weight 78.4 kg 82 kg Results 06/11/17 06:52 06/11/17 06:52 CBC 06/11/17 Range/Units 06:52 WBC 8.7 (3.8-10.6) k/uL RBC 3.36 L (3.80-5.40) m/uL Hgb 10.4 L (11.4-16.0) gm/dL Hct 33.5 L (34.0-46.0) % Plt Count 192 (150-450) k/uL Comprehensive Metabolic Panel 06/11/17 Range/Units 06:52 Sodium 138 (137-145) mmol/L Potassium 4.3 (3.5-5.1) mmol/L Chloride 109 H (98-107) mmol/L Carbon Dioxide 22 (22-30) mmol/L BUN 13 (7-17) mg/dL Creatinine 0.88 (0.52-1.04) mg/dL Glucose 115 H (74-99) mg/dL Calcium 9.0 (8.4-10.2) mg/dL Current Medications Generic Name Dose Route Start Last Admin Trade Name Freq PRN Reason Stop Dose Admin Acetaminophen 650 mg 06/08/17 23:36 Tylenol Tab PO Q6HR PRN Mild Pain or Fever > 100.5 Alprazolam 2 mg 06/09/17 03:02 06/09/17 03:33 Xanax PO 2 mg HS PRN Administration Anxiety Carvedilol 6.25 mg 06/09/17 03:03 06/11/17 09:20 Coreg PO 6.25 mg BID LULA Administration Citalopram Hydrobromide 40 mg 06/09/17 03:04 06/10/17 20:25 Celexa PO 40 mg HS LULA Administration Colchicine 0.6 mg 06/09/17 14:21 Colcrys PO DAILY PRN pain Famotidine 20 mg 06/09/17 14:21 Pepcid PO BID PRN Heartburn Meclizine HCl 12.5 mg 06/09/17 10:55 06/09/17 11:27 Antivert PO 12.5 mg TID PRN Administration Vertigo Miscellaneous Information 1 each 06/09/17 16:20 Rx Info: Iv Contrast Was Given MISCELLANE 06/11/17 16:20 DAILY PRN Per Protocol Naloxone HCl 0.2 mg 06/08/17 23:36 Narcan IV Q2M PRN Opioid Reversal Ondansetron HCl 4 mg 06/08/17 23:36 Zofran IVP Q8HR PRN Nausea And Vomiting Rivaroxaban 20 mg 06/10/17 09:00 06/11/17 09:20 Xarelto PO 20 mg DAILY [facility] Administration Spironolactone 100 mg 06/10/17 09:00 06/11/17 09:20 Aldactone PO 100 mg DAILY [facility] Administration Torsemide 80 mg 06/10/17 15:30 06/11/17 09:20 Demadex PO 80 mg DAILY [facility] Administration Tramadol HCl 50 mg 06/11/17 10:00 Ultram PO QID [facility] Intake and Output 06/10/17 06/11/17 06/11/17 22:59 06:59 14:59 Other: Voiding Method Bedpan Bedpan # Voids 1 5 1 Weight 78.4 kg 82 kg 06/11/17 06:52 06/11/17 06:52
--- NOTE | 2017-06-10 15:39 | P.PN ---
Subjective Progress Note Date: 06/10/17 This is a 71-year-old female. Her primary care physician is Dr. Basil Crowell. She has a past medical history of hypotension, gastroesophageal reflux disease, coronary artery disease, carotid stenosis and cardiomyopathy status post AICD, gout, anxiety and depression. Patient states that she was moving a toe down the stairs one step at a time and started falling. She also had dizziness which she has had episodes for the past couple weeks that her sudden on onset and can happen at any time. She has been taking meclizine at home. She states she had a fall without loss of consciousness. She denies any seizure activity or history. She laid on the floor for about 5-6 minutes when she called for help. Her son and were in the house. She denies having any chest pain, palpitations, headache, blurred vision. She was initially seen in the emergency center on June 08 at 1700. Lactic acid was 1.3, sodium 134, BUN 39 and creatinine 1.8, urinalysis was clear with leukoesterase large. Urine drug screen was positive for benzodiazepines. Alcohol level was less than 10. Troponin was negative. EKG was a sinus rhythm with no acute ST-T wave changes. She was found on x-ray to have a left radial head fracture and was prepared for discharge home. Patient states she got into the car and she was not able to move and she told her bring her back to the emergency center where she was subsequently admitted to the observation unit. Patient is complaining of pain to the left pelvic groin area pelvic x-rays were negative as well as CAT scan of the abdomen and pelvis were negative. 06/10: Orthopedics is following the patient and ordered CAT scan of the left hip that did show acute fractures of the left superior and inferior pubic Heath and there is no stranding in the pelvis consistent with hemorrhage or fluid. No plan for surgical intervention from orthopedics. She has also feels went to the left arm in sling. Patient is to be nonweightbearing on the left upper extremity and toe touch weightbearing on the left lower extremity. Physical therapy has evaluated and recommended subacute rehab. Case management updated. Cardiology consult has been added. Echocardiogram shows EF of 30-35%, mild concentric left ventricular hypertrophy, moderate global hypokinesia of the left ventricle, mild TR, moderate MR, mildly thickened aortic valve, right ventricular systolic pressure 36.49 mmHg and patient does have history of AICD. She follows with a media relations director in [place] and also has treated with Dr. Merino. Patient was noted to have a drop in her pulse ox at 4 AM to 84% and chest x-ray has been ordered. Daily orthostatic vital signs ordered. Cardiology has had AICD interrogated. They have decreased Demadex 80 mg daily. Plan to monitor her heart rate in Coreg may be decreased if needed. Repeat BUN 31 and creatinine 1.44. ProBNP 1200. Objective - Vital Signs Vital signs: Vital Signs Temp 98.7 F 06/10/17 08:00 Pulse 75 06/10/17 08:00 Resp 18 06/10/17 08:00 BP 121/70 06/10/17 08:00 Pulse Ox 90 L 06/10/17 08:00 Intake & Output 06/09/17 06/10/17 06/10/17 18:59 06:59 18:59 Intake Total 1036 Balance 1036 Intake: Oral 1036 Other: Voiding Method Bedpan Bedpan Bedpan # Voids 2 3 - Exam Gen: This is a 71-year-old female. She is seen in bed and appears to be comfortable. HEENT: Head is atraumatic, normocephalic. Pupils equal, round. Sclerae is anicteric. NECK: Supple. No JVD. No lymphadenopathy. No thyromegaly. LUNGS: Clear to auscultation. No wheezes or rhonchi. No intercostal retractions. HEART: Regular rate and rhythm. No murmur. ABDOMEN: Soft. Bowel sounds are present. No masses. No tenderness. EXTREMITIES: No pedal edema. No calf tenderness. Tenderness to the left groin. NEUROLOGICAL: Patient is awake, alert and oriented x3. Cranial nerves 2 through 12 are grossly intact. - Labs CBC & Chem 7: 06/09/17 06:18 06/10/17 07:14 Labs: Abnormal Lab Results - Last 24 Hours (Table) 06/10/17 Range/Units 07:14 Chloride 113 H (98-107) mmol/L Carbon Dioxide 18 L (22-30) mmol/L BUN 31 H (7-17) mg/dL Creatinine 1.44 H (0.52-1.04) mg/dL Assessment and Plan Plan: 1. Dehydration and acute kidney injury. Continue IV fluids at 100 mL per hour. Recheck electrolytes and kidney function in the morning. Avoid nephrotoxic agents. 2. Fall on stairs causing left radial fracture and left pelvic fracture. Orthopedics is on consult. Patient seen by general surgeon and cleared for transfer under medicine services. Physical therapy ordered and recommended subacute rehab. Orthopedics is following. 3. Left groin pain due to left pelvic fracture. Orthopedics is following. No plan for any surgical intervention. 4. Cardiomyopathy status post AICD placement. 5. History of carotid stenosis. Continue Xarelto. 6. Gastrointestinal prophylaxis. Continue Protonix and Pepcid 7. DVT prophylaxis. Continue Xarelto. Discharge plan: Subacute rehab Impression and plan of care have been directed as dictated by the signing physician. Nancy Olivera nurse practitioner acting as scribe for signing physician.
[2017-06-10] MEDS: TORSEMIDE 20 MG TAB PO SCH ×2 (15:48→16:02)
--- NOTE | 2017-06-10 16:00 | XR ---
EXAMINATION TYPE: XR chest 1V portable DATE OF EXAM: 06/10/2017 COMPARISON: 06/08/2017 INDICATION: Hypoxic episode TECHNIQUE: Single frontal view of the chest is obtained. FINDINGS: The heart size is mildly prominent. The pulmonary vasculature is normal. Small amount of infiltrate may be developing at the left base retrocardiac region. Electronic device overlies left chest. IMPRESSION: 1. Small developing retrocardiac infiltrate. Follow-up is recommended. Correlate for pneumonia or ate lectasis.
[2017-06-10] MEDS: CITALOPRAM HYDROBROMIDE 20 MG TAB PO SCH (20:25)
[2017-06-11] MEDS: HYDROcodone/APAP 5-325MG 1 EACH TAB PO PRN (07:24)
[2017-06-11 07:40] LABS: HCT 33.5 % (34.0-46.0); HGB 10.4 gm/dL (11.4-16.0); Hypochromasia Slight; MCHC 31.1 g/dL (31.0-37.0); MCV 99.8 fL (80.0-100.0); Macrocytosis Slight; Mean Platelet Volume 7.7; Platelet Count 192 k/uL (150-450); RBC 3.36 m/uL (3.80-5.40); RDW 15.6 % (11.5-15.5); WBC 8.7 k/uL (3.8-10.6)
[2017-06-11 07:51] LABS: Anion Gap 7 mmol/L; Blood Urea Nitrogen 13 mg/dL (7-17); Carbon Dioxide 22 mmol/L (22-30); Chloride 109 mmol/L (98-107); Glucose 115 mg/dL (74-99); Potassium 4.3 mmol/L (3.5-5.1); Sodium 138 mmol/L (137-145)
--- NOTE | 2017-06-11 08:57 | P.PN ---
Subjective Progress Note Date: 06/11/17 Principal diagnosis: Left radial head fracture and left pubic rami fractures This is a 71 year-old female who was found to have a left radial head fracture after sustaining a fall at home on 06/08/2017. She was unable get out of the care and was admitted for further evaluation and care. She underwent a hip CT and a superior and inferior pubic rami fractures were found. The patient denies nausea, vomiting, abdominal pain, shortness of breath, and chest pain this morning. She states her pain is moderately controlled at this time. Objective - Vital Signs Vital signs: Vital Signs Temp 98.2 F 06/11/17 07:00 Pulse 72 06/11/17 07:59 Resp 16 06/11/17 07:59 BP 152/75 06/11/17 07:00 Pulse Ox 93 L 06/11/17 07:00 Intake & Output 06/10/17 06/11/17 06/11/17 18:59 06:59 18:59 Intake Total 1340 Balance 1340 Weight 78.4 kg 82 kg Intake: Intake, IV Titration 800 Amount Sodium Chloride 0.9% 1, 800 000 ml @ 100 mls/hr IV . Q10H [facility] Rx#:[id number] Oral 540 Other: Voiding Method Bedpan Bedpan Bedpan # Voids 1 5 1 - Exam The patient is a 71-year-old female who is in no acute distress. She is alert and oriented 3. OCL splint is intact to the left upper extremity. There is no left shoulder, wrist, or hand tenderness. Exam of the right lower extremity reveals no obvious deformity or pain upon range of motion. Exam of the left lower extremity reveals pain to the lateral hip. There is pain upon logrolling and range of motion of the hip joint. No pain to the left knee or ankle. Bilateral calves are soft and nontender. There is good foot and ankle motion. Circulatory and neurovascular status is intact to the bilateral lower and upper extremities. - Labs CBC & Chem 7: 06/11/17 06:52 06/11/17 06:52 Labs: Abnormal Lab Results - Last 24 Hours (Table) 06/11/17 06/11/17 Range/Units 06:52 06:52 RBC 3.36 L (3.80-5.40) m/uL Hgb 10.4 L (11.4-16.0) gm/dL Hct 33.5 L (34.0-46.0) % RDW 15.6 H (11.5-15.5) % Chloride 109 H (98-107) mmol/L Glucose 115 H (74-99) mg/dL Assessment and Plan (1) Fall Current Visit: Yes Status: Acute Code(s): W19.XXXA - UNSPECIFIED FALL, INITIAL ENCOUNTER SNOMED Code(s): 1017367 (2) Left hip pain Current Visit: Yes Status: Acute Code(s): M25.552 - PAIN IN LEFT HIP SNOMED Code(s): 38570256 (3) Left radial head fracture Current Visit: Yes Status: Acute Code(s): S52.122A - DISP FX OF HEAD OF LEFT RADIUS, INIT FOR CLOS FX SNOMED Code(s): 211002270 (4) Fracture of pubic ramus Current Visit: Yes Status: Acute Code(s): S32.599A - OTH FRACTURE OF UNSP PUBIS, INIT ENCNTR FOR CLOSED FRACTURE SNOMED Code(s): 39340891 Plan: The clinical, x-ray and CT findings were discussed with the patient. No surgical intervention is needed at this time. Maintain OCL splint to left arm. Sling for comfort. Non-weightbearing to the left upper extremity and toe-touch weightbearing to the left lower extremity. The patient will need skilled rehab placement. Continue PT and OT evals. She was placed in inpatient status per medical management. Continue pain control. We will continue to monitor the patient closely.
[2017-06-11] MEDS: SPIRONOLACTONE 25 MG TAB PO SCH (09:20)
[2017-06-11] MEDS: CARVEDILOL 6.25 MG TAB PO SCH ×2 (09:20→20:27)
[2017-06-11] MEDS: TORSEMIDE 20 MG TAB PO SCH (09:20)
[2017-06-11] MEDS: RIVAROXABAN 10 MG TAB PO SCH (09:20)
--- NOTE | 2017-06-11 11:44 | P.PN ---
Subjective Progress Note Date: 06/10/17 Principal diagnosis: Fall Patient is still complaining of pelvic pain. She was found to have pubic rami fracture. She has been working with PT OT. She's tolerating her diet at this time she has no other major complaints. Objective - Vital Signs Vital signs: Vital Signs Temp 98.2 F 06/11/17 07:00 Pulse 88 06/11/17 10:03 Resp 16 06/11/17 07:59 BP 160/86 06/11/17 10:03 Pulse Ox 93 L 06/11/17 07:00 Intake & Output 06/10/17 06/11/17 06/11/17 18:59 06:59 18:59 Intake Total 1340 Balance 1340 Weight 78.4 kg 82 kg Intake: Intake, IV Titration 800 Amount Sodium Chloride 0.9% 1, 800 000 ml @ 100 mls/hr IV . Q10H [facility] Rx#:[id number] Oral 540 Other: Voiding Method Bedpan Bedpan Bedpan # Voids 1 5 1 - Constitutional General appearance: Present: average body habitus - EENT Eyes: Present: PERRLA - Respiratory Details: Nonlabored - Gastrointestinal Gastrointestinal Comment(s): Soft nontender nondistended - Psychiatric Psychiatric: Present: A&O x's 3 - Labs CBC & Chem 7: 06/11/17 06:52 06/11/17 06:52 Labs: Abnormal Lab Results - Last 24 Hours (Table) 06/11/17 06/11/17 Range/Units 06:52 06:52 RBC 3.36 L (3.80-5.40) m/uL Hgb 10.4 L (11.4-16.0) gm/dL Hct 33.5 L (34.0-46.0) % RDW 15.6 H (11.5-15.5) % Chloride 109 H (98-107) mmol/L Glucose 115 H (74-99) mg/dL Assessment and Plan Assessment: Fall down multiple steps with left radial head fracture and pubic rami fracture. Plan: Patient is stable from a trauma surgery standpoint. Orthopedic recommendations for pubic rami fracture and radial head fracture. Continue PT OT.
[2017-06-11] MEDS: traMADol 50 MG TAB PO SCH ×4 (12:57→22:19)
--- NOTE | 2017-06-11 13:57 | P.PN ---
Subjective Progress Note Date: 06/11/17 This is a 71-year-old female. Her primary care physician is Dr. Basil Crowell. She has a past medical history of hypotension, gastroesophageal reflux disease, coronary artery disease, carotid stenosis and cardiomyopathy status post AICD, gout, anxiety and depression. Patient states that she was moving a toe down the stairs one step at a time and started falling. She also had dizziness which she has had episodes for the past couple weeks that her sudden on onset and can happen at any time. She has been taking meclizine at home. She states she had a fall without loss of consciousness. She denies any seizure activity or history. She laid on the floor for about 5-6 minutes when she called for help. Her son and were in the house. She denies having any chest pain, palpitations, headache, blurred vision. She was initially seen in the emergency center on June 08 at 1700. Lactic acid was 1.3, sodium 134, BUN 39 and creatinine 1.8, urinalysis was clear with leukoesterase large. Urine drug screen was positive for benzodiazepines. Alcohol level was less than 10. Troponin was negative. EKG was a sinus rhythm with no acute ST-T wave changes. She was found on x-ray to have a left radial head fracture and was prepared for discharge home. Patient states she got into the car and she was not able to move and she told her bring her back to the emergency center where she was subsequently admitted to the observation unit. Patient is complaining of pain to the left pelvic groin area pelvic x-rays were negative as well as CAT scan of the abdomen and pelvis were negative. 06/10: Orthopedics is following the patient and ordered CAT scan of the left hip that did show acute fractures of the left superior and inferior pubic Heath and there is no stranding in the pelvis consistent with hemorrhage or fluid. No plan for surgical intervention from orthopedics. She has also feels went to the left arm in sling. Patient is to be nonweightbearing on the left upper extremity and toe touch weightbearing on the left lower extremity. Physical therapy has evaluated and recommended subacute rehab. Case management updated. Cardiology consult has been added. Echocardiogram shows EF of 30-35%, mild concentric left ventricular hypertrophy, moderate global hypokinesia of the left ventricle, mild TR, moderate MR, mildly thickened aortic valve, right ventricular systolic pressure 36.49 mmHg and patient does have history of AICD. She follows with a police records clerk in [place] and also has treated with Dr. Merino. Patient was noted to have a drop in her pulse ox at 4 AM to 84% and chest x-ray has been ordered. Daily orthostatic vital signs ordered. Cardiology has had AICD interrogated. They have decreased Demadex 80 mg daily. Plan to monitor her heart rate in Coreg may be decreased if needed. Repeat BUN 31 and creatinine 1.44. ProBNP 1200. 06/11: Orthostatic vital signs were negative. Dr. Merino has been following him and made the above adjustments. Plan will be for patient to follow-up with her police records clerk in [place]. Patient has nausea today most likely from [place] which we will try tramadol instead. Patient is requesting [facility] for rehab Objective - Vital Signs Vital signs: Vital Signs Temp 98.2 F 06/11/17 07:00 Pulse 72 06/11/17 07:59 Resp 16 06/11/17 07:59 BP 152/75 06/11/17 07:00 Pulse Ox 93 L 06/11/17 07:00 Intake & Output 06/10/17 06/11/17 06/11/17 18:59 06:59 18:59 Intake Total 1340 Balance 1340 Weight 78.4 kg 82 kg Intake: Intake, IV Titration 800 Amount Sodium Chloride 0.9% 1, 800 000 ml @ 100 mls/hr IV . Q10H LULA Rx#:[id number] Oral 540 Other: Voiding Method Bedpan Bedpan Bedpan # Voids 1 5 1 - Exam Gen: This is a 71-year-old female. She is seen in bed and appears to be comfortable. HEENT: Head is atraumatic, normocephalic. Pupils equal, round. Sclerae is anicteric. NECK: Supple. No JVD. No lymphadenopathy. No thyromegaly. LUNGS: Clear to auscultation. No wheezes or rhonchi. No intercostal retractions. HEART: Regular rate and rhythm. No murmur. ABDOMEN: Soft. Bowel sounds are present. No masses. No tenderness. EXTREMITIES: No pedal edema. No calf tenderness. Tenderness to the left groin. NEUROLOGICAL: Patient is awake, alert and oriented x3. Cranial nerves 2 through 12 are grossly intact. - Labs CBC & Chem 7: 06/11/17 06:52 06/11/17 06:52 Labs: Abnormal Lab Results - Last 24 Hours (Table) 06/11/17 06/11/17 Range/Units 06:52 06:52 RBC 3.36 L (3.80-5.40) m/uL Hgb 10.4 L (11.4-16.0) gm/dL Hct 33.5 L (34.0-46.0) % RDW 15.6 H (11.5-15.5) % Chloride 109 H (98-107) mmol/L Glucose 115 H (74-99) mg/dL Assessment and Plan Plan: 1. Dehydration and acute kidney injury, resolved. Avoid nephrotoxic agents. 2. Fall on stairs causing left radial fracture and left pelvic fracture. Orthopedics is on consult. Patient seen by general surgeon and cleared for transfer under medicine services. Physical therapy ordered and recommended subacute rehab. Orthopedics is following. 3. Left groin pain due to left pelvic fracture. Orthopedics is following. No plan for any surgical intervention. 4. Cardiomyopathy status post AICD placement. 5. History of carotid stenosis. Continue Xarelto. 6. Gastrointestinal prophylaxis. Continue Protonix and Pepcid 7. DVT prophylaxis. Continue Xarelto. Discharge plan: [facility] Impression and plan of care have been directed as dictated by the signing physician. Nancy Olivera nurse practitioner acting as scribe for signing physician.
--- NOTE | 2017-06-11 13:59 | P.DS ---
Providers Date of admission: 06/10/17 11:35 Expected date of discharge: 06/11/17 Attending physician: Keisha Thornton MD Consults: 06/08/17 23:37 Consult Physician Routine Consulting Provider: Keisha Thornton Consult Reason/Comments: Medical management status post fall Do you want consulting provider notified?: Yes, Notify in am Consult Physician Routine Consulting Provider: Alex James Consult Reason/Comments: Radial head fracture status post fall Do you want consulting provider notified?: Yes, Notify in am 06/09/17 10:53 Consult Physician Routine Consulting Provider: Ian Engel Consult Reason/Comments: post fall, change from admitting doctor to consult doctor Do you want consulting provider notified?: Already Contacted 06/10/17 11:06 Consult Physician Routine Consulting Provider: Tino Merino Consult Reason/Comments: presyncope, dizziness Do you want consulting provider notified?: Yes Primary care physician: [place] [facility] Course: This is a 71-year-old female. Her primary care physician is Dr. Basil Crowell. She has a past medical history of hypotension, gastroesophageal reflux disease, coronary artery disease, carotid stenosis and cardiomyopathy status post AICD, gout, anxiety and depression. Patient states that she was moving a toe down the stairs one step at a time and started falling. She also had dizziness which she has had episodes for the past couple weeks that her sudden on onset and can happen at any time. She has been taking meclizine at home. She states she had a fall without loss of consciousness. She denies any seizure activity or history. She laid on the floor for about 5-6 minutes when she called for help. Her son and were in the house. She denies having any chest pain, palpitations, headache, blurred vision. She was initially seen in the emergency center on June 08 at 1700. Lactic acid was 1.3, sodium 134, BUN 39 and creatinine 1.8, urinalysis was clear with leukoesterase large. Urine drug screen was positive for benzodiazepines. Alcohol level was less than 10. Troponin was negative. EKG was a sinus rhythm with no acute ST-T wave changes. She was found on x-ray to have a left radial head fracture and was prepared for discharge home. Patient states she got into the car and she was not able to move and she told her bring her back to the emergency center where she was subsequently admitted to the observation unit. Patient is complaining of pain to the left pelvic groin area pelvic x-rays were negative as well as CAT scan of the abdomen and pelvis were negative. 06/10: Orthopedics is following the patient and ordered CAT scan of the left hip that did show acute fractures of the left superior and inferior pubic Heath and there is no stranding in the pelvis consistent with hemorrhage or fluid. No plan for surgical intervention from orthopedics. She has also feels went to the left arm in sling. Patient is to be nonweightbearing on the left upper extremity and toe touch weightbearing on the left lower extremity. Physical therapy has evaluated and recommended subacute rehab. Case management updated. Cardiology consult has been added. Echocardiogram shows EF of 30-35%, mild concentric left ventricular hypertrophy, moderate global hypokinesia of the left ventricle, mild TR, moderate MR, mildly thickened aortic valve, right ventricular systolic pressure 36.49 mmHg and patient does have history of AICD. She follows with a wind site manager in [place] and also has treated with Dr. Merino. Patient was noted to have a drop in her pulse ox at 4 AM to 84% and chest x-ray has been ordered. Daily orthostatic vital signs ordered. Cardiology has had AICD interrogated. They have decreased Demadex 80 mg daily. Plan to monitor her heart rate in Coreg may be decreased if needed. Repeat BUN 31 and creatinine 1.44. ProBNP 1200. 06/11: Orthostatic vital signs were negative. Dr. Merino has been following him and made the above adjustments. Plan will be for patient to follow-up with her wind site manager in [place]. Patient has nausea today most likely from [place] which we will try tramadol instead. Patient is requesting [facility] for rehab. Patient has been reassessed by Dr. Engel and determine stable from trauma surgery standpoint. We are waiting authorization for subacute rehab from her insurance. Patient will be discharged in stable condition once this authorization is obtained. Discharge diagnoses: 1. Dehydration and acute kidney injury, resolved. 2. Fall secondary to dizziness, orthostatic changes ruled out as cause, on stairs causing left radial fracture and left pelvic fracture. 3. Left groin pain due to left pelvic fracture. 4. Cardiomyopathy status post AICD placement. 5. History of carotid stenosis on Xarelto. Discharge plan: [facility] Impression and plan of care have been directed as dictated by the signing physician. Nancy Olivera nurse practitioner acting as scribe for signing physician. Patient Condition at Discharge: Good Plan - Discharge Summary New Discharge Prescriptions: New Acetaminophen Tab [Tylenol] 650 mg PO Q6HR PRN tab PRN Reason: Mild Pain Or Fever > 100.5 Meclizine [Antivert] 12.5 mg PO TID PRN tab PRN Reason: Vertigo Torsemide [Demadex] 80 mg PO DAILY tab traMADol HCl [Ultram] 50 mg PO QID #100 tab Continue Citalopram Hydrobromide [CeleXA] 40 mg PO HS Potassium Chloride ER [K-Dur 20] 40 meq PO BID Rivaroxaban [Xarelto] 20 mg PO DAILY Ranitidine HCl [Zantac] 150 mg PO BID PRN PRN Reason: Heartburn Spironolactone 100 mg PO DAILY Colchicine 0.6 mg PO DAILY PRN PRN Reason: pain Carvedilol [Coreg] 6.25 mg PO BID ALPRAZolam [Xanax] 2 mg PO HS PRN #30 tablet PRN Reason: Anxiety Discontinued Torsemide [Demadex] 100 mg PO DAILY HYDROcodone/APAP 5-325MG [[place] 5-325] 0.5 - 1 tab PO Q4HR PRN PRN Reason: Pain Discharge Medication List Citalopram Hydrobromide [CeleXA] 40 mg PO HS 07/16/14 [History] Potassium Chloride ER [K-Dur 20] 40 meq PO BID 11/20/14 [History] Ranitidine HCl [Zantac] 150 mg PO BID PRN 06/27/16 [History] Rivaroxaban [Xarelto] 20 mg PO DAILY 06/27/16 [History] Carvedilol [Coreg] 6.25 mg PO BID 06/09/17 [History] Colchicine 0.6 mg PO DAILY PRN 06/09/17 [History] Spironolactone 100 mg PO DAILY 06/09/17 [History] ALPRAZolam [Xanax] 2 mg PO HS PRN #30 tablet 06/11/17 [Rx] Acetaminophen Tab [Tylenol] 650 mg PO Q6HR PRN tab 06/11/17 [Rx] Meclizine [Antivert] 12.5 mg PO TID PRN tab 06/11/17 [Rx] Torsemide [Demadex] 80 mg PO DAILY tab 06/11/17 [Rx] traMADol HCl [Ultram] 50 mg PO QID #100 tab 06/11/17 [Rx] Follow up Appointment(s)/Referral(s): Alex James DO [Doctor of Osteopathic Medicine] - 06/15/17 1:45 pm Basil Crowell DO [Primary Care Provider] - 1-2 days Ambulatory/Diagnostic Orders: Ambulatory Miscellaneous Order [MISC.AMB] Location: Determined By Patient Activity/Diet/Wound Care/Special Instructions: Keep splint clean, dry, and intact until follow up with Dr. James Sljonathan for comfort Follow up with Dr. James in 1 week Call [facility] with any questions or concerns, [phone]. Discharge Disposition: TRANSFER TO SNF/ECF
[2017-06-11] MEDS: CITALOPRAM HYDROBROMIDE 20 MG TAB PO SCH (20:25)
[2017-06-12] MEDS: RIVAROXABAN 10 MG TAB PO SCH (07:57)
[2017-06-12] MEDS: TORSEMIDE 20 MG TAB PO SCH (07:57)
[2017-06-12] MEDS: CARVEDILOL 6.25 MG TAB PO SCH ×2 (07:57→20:24)
[2017-06-12] MEDS: SPIRONOLACTONE 25 MG TAB PO SCH (07:57)
[2017-06-12] MEDS: traMADol 50 MG TAB PO SCH ×4 (07:58→23:24)
--- NOTE | 2017-06-12 09:20 | P.PN ---
Subjective Progress Note Date: 06/12/17 Principal diagnosis: Left radial head fracture and left pubic rami fractures This is a 71 year-old female who was found to have a left radial head fracture after sustaining a fall at home on 06/08/2017. She was unable get out of the care and was admitted for further evaluation and care. She underwent a hip CT and a superior and inferior pubic rami fractures were found. The patient denies nausea, vomiting, abdominal pain, shortness of breath, and chest pain this morning. She states her pain is moderately controlled at this time. Objective - Vital Signs Vital signs: Vital Signs Temp 98.1 F 06/12/17 07:00 Pulse 85 06/12/17 07:00 Resp 16 06/12/17 07:00 BP 127/65 06/12/17 07:00 Pulse Ox 90 L 06/12/17 07:00 Intake & Output 06/11/17 06/12/17 06/12/17 18:59 06:59 18:59 Intake Total 1080 Output Total 1999 Balance -920 Weight 82.5 kg Intake: Oral 1080 Output: Urine 2000 Other: Voiding Method Bedpan Bedpan # Voids 7 1 1 - Exam The patient is a 71-year-old female who is in no acute distress. She is alert and oriented 3. OCL splint is intact to the left upper extremity. There is no left shoulder, wrist, or hand tenderness. Exam of the right lower extremity reveals no obvious deformity or pain upon range of motion. Exam of the left lower extremity reveals pain to the lateral hip. There is pain upon logrolling and range of motion of the hip joint. No pain to the left knee or ankle. Bilateral calves are soft and nontender. There is good foot and ankle motion. Circulatory and neurovascular status is intact to the bilateral lower and upper extremities. - Labs CBC & Chem 7: 06/11/17 06:52 06/11/17 06:52 Assessment and Plan (1) Fall Current Visit: Yes Status: Acute Code(s): W19.XXXA - UNSPECIFIED FALL, INITIAL ENCOUNTER SNOMED Code(s): 6312304 (2) Left hip pain Current Visit: Yes Status: Acute Code(s): M25.552 - PAIN IN LEFT HIP SNOMED Code(s): 32713275 (3) Left radial head fracture Current Visit: Yes Status: Acute Code(s): S52.122A - DISP FX OF HEAD OF LEFT RADIUS, INIT FOR CLOS FX SNOMED Code(s): 175271946 (4) Fracture of pubic ramus Current Visit: Yes Status: Acute Code(s): S32.599A - OTH FRACTURE OF UNSP PUBIS, INIT ENCNTR FOR CLOSED FRACTURE SNOMED Code(s): 54548864 Plan: The clinical, x-ray and CT findings were discussed with the patient. No surgical intervention is needed at this time. Maintain OCL splint to left arm. Sling for comfort. Non-weightbearing to the left upper extremity and toe-touch weightbearing to the left lower extremity. The patient will need skilled rehab placement. Continue PT and OT evals. Increase ambulation as tolerated. Continue pain control. We will continue to monitor the patient closely.
--- NOTE | 2017-06-12 11:25 | P.PN ---
Subjective Progress Note Date: 06/12/17 no major events reported by nursing staff patient currently is denying chest pain, shortness breath, nausea, vomiting or abdominal pain Objective - Vital Signs Vital signs: Vital Signs Temp 98.1 F 06/12/17 07:00 Pulse 85 06/12/17 07:00 Resp 16 06/12/17 07:00 BP 127/65 06/12/17 07:00 Pulse Ox 90 L 06/12/17 07:00 Intake & Output 06/11/17 06/12/17 06/12/17 18:59 06:59 18:59 Intake Total 1080 Output Total 1999 Balance -920 Weight 82.5 kg Intake: Oral 1080 Output: Urine 1999 Other: Voiding Method Bedpan Bedpan Bedside Commode # Voids 7 1 1 - Exam lungs clear to auscultation bilaterally Heart normal S1-S2 Abdomen soft no tenderness Skin no new rash Psych alert awake following commands next - Labs CBC & Chem 7: 06/11/17 06:52 06/11/17 06:52 Assessment and Plan Assessment: 1. Acute kidney injury. This responded to fluid patient's tolerating diet stable at this point area 2. Gait instability and frequent falls. PT OT recommended subacute rehab with follow-up on the recommendation and follow-up with case management arrangement. 3. Cardiomyopathy status post AICD. Seems to be compensated continue cardioprotective medication. 4.chronic anemia. We'll continue monitoring. 5. Peripheral arterial disease. We'll continue current blood thinners area 6. Discharge planning based on case management arrangement
[2017-06-12] MEDS: CITALOPRAM HYDROBROMIDE 20 MG TAB PO SCH (20:24)
[2017-06-13 00:26] VITALS: RESP 16
[2017-06-13] MEDS: TORSEMIDE 20 MG TAB PO SCH (07:56)
[2017-06-13] MEDS: SPIRONOLACTONE 25 MG TAB PO SCH (07:57)
[2017-06-13] MEDS: traMADol 50 MG TAB PO SCH ×4 (07:57→21:37)
[2017-06-13] MEDS: RIVAROXABAN 10 MG TAB PO SCH (07:58)
[2017-06-13] MEDS: CARVEDILOL 6.25 MG TAB PO SCH ×2 (07:58→21:36)
--- NOTE | 2017-06-13 09:17 | P.PN ---
Subjective Progress Note Date: 06/13/17 Principal diagnosis: Left radial head fracture and left pubic rami fractures This is a 71 year-old female who was found to have a left radial head fracture after sustaining a fall at home on 06/08/2017. She was unable get out of the care and was admitted for further evaluation and care. She underwent a hip CT and a superior and inferior pubic rami fractures were found. She states she is currently have nausea and abdominal pain. She has not had a bowel movement in awhile. The patient denies shortness of breath and chest pain this morning. She states her pain is moderately controlled at this time. The patient has been working with physical therapy. Objective - Vital Signs Vital signs: Vital Signs Temp 97.6 F 06/12/17 23:00 Pulse 89 06/12/17 23:00 Resp 16 06/12/17 23:00 BP 150/71 06/12/17 23:00 Pulse Ox 95 06/12/17 23:00 Intake & Output 06/12/17 06/13/17 06/13/17 18:59 06:59 18:59 Intake Total 590 Output Total 1000 Balance -410 Weight 82.6 kg Intake: Oral 590 Output: Urine 1000 Other: Voiding Method Bedside Commode Bedside Commode Bedpan # Voids 3 2 - Exam The patient is a 71-year-old female who is in no acute distress. She is alert and oriented 3. OCL splint is intact to the left upper extremity. There is no left shoulder, wrist, or hand tenderness. Exam of the right lower extremity reveals no obvious deformity or pain upon range of motion. Exam of the left lower extremity reveals pain to the lateral hip. There is pain upon logrolling and range of motion of the hip joint. No pain to the left knee or ankle. Bilateral calves are soft and nontender. There is good foot and ankle motion. Circulatory and neurovascular status is intact to the bilateral lower and upper extremities. - Labs CBC & Chem 7: 06/11/17 06:52 06/11/17 06:52 Assessment and Plan (1) Fall Current Visit: Yes Status: Acute Code(s): W19.XXXA - UNSPECIFIED FALL, INITIAL ENCOUNTER SNOMED Code(s): 7656312 (2) Left hip pain Current Visit: Yes Status: Acute Code(s): M25.552 - PAIN IN LEFT HIP SNOMED Code(s): 90175261 (3) Left radial head fracture Current Visit: Yes Status: Acute Code(s): S52.122A - DISP FX OF HEAD OF LEFT RADIUS, INIT FOR CLOS FX SNOMED Code(s): 000578706 (4) Fracture of pubic ramus Current Visit: Yes Status: Acute Code(s): S32.599A - OTH FRACTURE OF UNSP PUBIS, INIT ENCNTR FOR CLOSED FRACTURE SNOMED Code(s): 44789621 Plan: The clinical, x-ray and CT findings were discussed with the patient. No surgical intervention is needed at this time. Maintain OCL splint to left arm. Sling for comfort. Non-weightbearing to the left upper extremity and toe-touch weightbearing to the left lower extremity. The patient will need skilled rehab placement. Continue PT and OT evals. Increase ambulation as tolerated. Continue pain control. We will continue to monitor the patient closely.
[2017-06-13] MEDS ORDERED: MAGNESIUM HYDROXIDE 2,400 MG/10 ML CUP PO PRN (09:27)
[2017-06-13] MEDS ORDERED: BISACODYL 10 MG SUPP RECTAL STA (09:27)
[2017-06-13] MEDS: SENNOSIDES-DOCUSATE SODIUM 1 EACH TAB PO SCH ×2 (13:26→21:36)
--- NOTE | 2017-06-13 15:58 | P.PN ---
Subjective Progress Note Date: 06/13/17 no major events reported by nursing staff patient currently is denying chest pain, shortness breath, nausea, vomiting or abdominal pain Objective - Vital Signs Vital signs: Vital Signs Temp 97.9 F 06/13/17 07:00 Pulse 89 06/13/17 08:00 Resp 16 06/13/17 08:00 BP 130/81 06/13/17 07:00 Pulse Ox 90 L 06/13/17 07:00 Intake & Output 06/12/17 06/13/17 06/13/17 18:59 06:59 18:59 Intake Total 590 120 Output Total 1000 Balance -410 120 Weight 82.6 kg Intake: Oral 590 120 Output: Urine 1000 Other: Voiding Method Bedside Commode Bedside Commode Bedside Commode Bedpan Bedpan # Voids 3 2 3 - Exam lungs clear to auscultation bilaterally Heart normal S1-S2 Abdomen soft no tenderness Skin no new rash Psych alert awake following commands next - Labs CBC & Chem 7: 06/11/17 06:52 06/11/17 06:52 Assessment and Plan Assessment: 1. Acute kidney injury. This responded to fluid patient's tolerating diet stable at this point area 2. Gait instability and frequent falls. PT OT recommended subacute rehab with follow-up on the recommendation and follow-up with case management arrangement. 3. Cardiomyopathy status post AICD. Seems to be compensated continue cardioprotective medication. 4.chronic anemia. We'll continue monitoring. 5. Peripheral arterial disease. We'll continue current blood thinners area 6. Discharge planning based on case management arrangement
[2017-06-13] MEDS: CITALOPRAM HYDROBROMIDE 20 MG TAB PO SCH (21:36)
[2017-06-13] MEDS: ALPRAZolam 0.5 MG TAB PO PRN (21:37)
[2017-06-14 07:36] VITALS: PULSE 75; TEMP 98.4
[2017-06-14 07:38] VITALS: BP 121/58
[2017-06-14] MEDS: RIVAROXABAN 10 MG TAB PO SCH (08:20)
[2017-06-14] MEDS: CARVEDILOL 6.25 MG TAB PO SCH (08:21)
[2017-06-14] MEDS: SPIRONOLACTONE 25 MG TAB PO SCH (08:21)
[2017-06-14] MEDS: TORSEMIDE 20 MG TAB PO SCH (08:21)
[2017-06-14] MEDS: SENNOSIDES-DOCUSATE SODIUM 1 EACH TAB PO SCH (08:22)
[2017-06-14] MEDS: traMADol 50 MG TAB PO SCH ×2 (08:29→12:38)
--- NOTE | 2017-06-14 08:52 | P.PN ---
Subjective Progress Note Date: 06/14/17 Principal diagnosis: Left radial head fracture and left pubic rami fractures This is a 71 year-old female who was found to have a left radial head fracture after sustaining a fall at home on 06/08/2017. She was unable get out of the car and was admitted for further evaluation and care. She underwent a hip CT and a superior and inferior pubic rami fractures were found. She states her nausea and abdominal pain is better. She had a bowel movement this morning. The patient denies shortness of breath and chest pain this morning. She states her pain is moderately controlled at this time. The patient has been working with physical therapy. We are awaiting skilled rehab placement. Objective - Vital Signs Vital signs: Vital Signs Temp 98.4 F 06/14/17 07:00 Pulse 75 06/14/17 07:00 Resp 16 06/14/17 07:00 BP 121/58 06/14/17 07:00 Pulse Ox 92 L 06/14/17 07:55 Intake & Output 06/13/17 06/14/17 06/14/17 18:59 06:59 18:59 Intake Total 120 990 Balance 120 990 Weight 75.5 kg Intake: Oral 120 990 Other: Voiding Method Bedside Commode Bedside Commode Bedpan Bedpan # Voids 3 4 # Bowel Movements 1 4 1 - Exam The patient is a 71-year-old female who is in no acute distress. She is alert and oriented 3. OCL splint is intact to the left upper extremity. There is no left shoulder, wrist, or hand tenderness. Exam of the right lower extremity reveals no obvious deformity or pain upon range of motion. Exam of the left lower extremity reveals pain to the lateral hip. There is pain upon logrolling and range of motion of the hip joint. No pain to the left knee or ankle. Bilateral calves are soft and nontender. There is good foot and ankle motion. Circulatory and neurovascular status is intact to the bilateral lower and upper extremities. - Labs CBC & Chem 7: 06/11/17 06:52 06/11/17 06:52 Assessment and Plan (1) Fall Current Visit: Yes Status: Acute Code(s): W19.XXXA - UNSPECIFIED FALL, INITIAL ENCOUNTER SNOMED Code(s): 4071751 (2) Left hip pain Current Visit: Yes Status: Acute Code(s): M25.552 - PAIN IN LEFT HIP SNOMED Code(s): 98459487 (3) Left radial head fracture Current Visit: Yes Status: Acute Code(s): S52.122A - DISP FX OF HEAD OF LEFT RADIUS, INIT FOR CLOS FX SNOMED Code(s): 761371027 (4) Fracture of pubic ramus Current Visit: Yes Status: Acute Code(s): S32.599A - OTH FRACTURE OF UNSP PUBIS, INIT ENCNTR FOR CLOSED FRACTURE SNOMED Code(s): 94396784 Plan: The clinical, x-ray and CT findings were discussed with the patient. No surgical intervention is needed at this time. Maintain OCL splint to left arm. Sling for comfort. Non-weightbearing to the left upper extremity and toe-touch weightbearing to the left lower extremity. The patient is orthopedically stable for discharge to skilled rehab. She will follow up in our office in 2 weeks.
[2017-06-14 12:20] LABS: Amorphous Sediment,Urine Rare /hpf; Appearance,Urine Turbid (Clear); Bacteria,Urine Many /hpf; Bilirubin,Urine Negative (Negative); Blood,Urine Moderate (Negative); Color,Urine Yellow; Glucose,Urine (UA) Negative (Negative); Ketones,Urine Negative (Negative); Leukocyte Esterase,Urine Large (Negative); Mucus,Urine Occasional /hpf; Nitrite,Urine Negative (Negative); PH, Urine 5.5 (5.0-8.0); Protein,Urine Trace (Negative); RBC,Urine 50 /hpf (0-5); Specific Gravity,Urine 1.007 (1.001-1.035); Squamous Epithelial Cell,Urine 11 /hpf (0-4); Urobilinogen,Urine <2.0 mg/dL (<2.0); WBC,Urine 6 /hpf (0-5)
[2017-06-14] MEDS ORDERED: LEVOFLOXACIN 500 MG TAB PO STA (13:35)
--- NOTE | 2017-06-14 13:36 | P.DS ---
Providers Date of admission: 06/10/17 11:35 Expected date of discharge: 06/14/17 Attending physician: Keisha Thornton MD Consults: 06/08/17 23:37 Consult Physician Routine Consulting Provider: Keisha Thornton Consult Reason/Comments: Medical management status post fall Do you want consulting provider notified?: Yes, Notify in am Consult Physician Routine Consulting Provider: Alex James Consult Reason/Comments: Radial head fracture status post fall Do you want consulting provider notified?: Yes, Notify in am 06/09/17 10:53 Consult Physician Routine Consulting Provider: Ian Engel Consult Reason/Comments: post fall, change from admitting doctor to consult doctor Do you want consulting provider notified?: Already Contacted 06/10/17 11:06 Consult Physician Routine Consulting Provider: Tino Merino Consult Reason/Comments: presyncope, dizziness Do you want consulting provider notified?: Yes Primary care physician: [facility] Course: This is a 71-year-old female. Her primary care physician is Dr. Basil Crowell. She has a past medical history of hypotension, gastroesophageal reflux disease, coronary artery disease, carotid stenosis and cardiomyopathy status post AICD, gout, anxiety and depression. Patient states that she was moving a toe down the stairs one step at a time and started falling. She also had dizziness which she has had episodes for the past couple weeks that her sudden on onset and can happen at any time. She has been taking meclizine at home. She states she had a fall without loss of consciousness. She denies any seizure activity or history. She laid on the floor for about 5-6 minutes when she called for help. Her son and were in the house. She denies having any chest pain, palpitations, headache, blurred vision. She was initially seen in the emergency center on June 08 at 1700. Lactic acid was 1.3, sodium 134, BUN 39 and creatinine 1.8, urinalysis was clear with leukoesterase large. Urine drug screen was positive for benzodiazepines. Alcohol level was less than 10. Troponin was negative. EKG was a sinus rhythm with no acute ST-T wave changes. She was found on x-ray to have a left radial head fracture and was prepared for discharge home. Patient states she got into the car and she was not able to move and she told her bring her back to the emergency center where she was subsequently admitted to the observation unit. Patient is complaining of pain to the left pelvic groin area pelvic x-rays were negative as well as CAT scan of the abdomen and pelvis were negative. 06/10: Orthopedics is following the patient and ordered CAT scan of the left hip that did show acute fractures of the left superior and inferior pubic Heath and there is no stranding in the pelvis consistent with hemorrhage or fluid. No plan for surgical intervention from orthopedics. She has also feels went to the left arm in sling. Patient is to be nonweightbearing on the left upper extremity and toe touch weightbearing on the left lower extremity. Physical therapy has evaluated and recommended subacute rehab. Case management updated. Cardiology consult has been added. Echocardiogram shows EF of 30-35%, mild concentric left ventricular hypertrophy, moderate global hypokinesia of the left ventricle, mild TR, moderate MR, mildly thickened aortic valve, right ventricular systolic pressure 36.49 mmHg and patient does have history of AICD. She follows with a [facility] operator [facility] in [place] and also has treated with Dr. Merino. Patient was noted to have a drop in her pulse ox at 4 AM to 84% and chest x-ray has been ordered. Daily orthostatic vital signs ordered. Cardiology has had AICD interrogated. They have decreased Demadex 80 mg daily. Plan to monitor her heart rate in Coreg may be decreased if needed. Repeat BUN 31 and creatinine 1.44. ProBNP 1200. 06/11: Orthostatic vital signs were negative. Dr. Merino has been following him and made the above adjustments. Plan will be for patient to follow-up with her [employer] operator [employer] in [place]. Patient has nausea today most likely from [place] which we will try tramadol instead. Patient is requesting [facility] for rehab. Patient has been reassessed by Dr. Engel and determine stable from trauma surgery standpoint. We are waiting authorization for subacute rehab from her insurance. Patient will be discharged in stable condition once this authorization is obtained. 06/14: Patient stayed over weekend because we are waiting for insurance authorization. Patient will be started on avelox for early pneumonia and possible UTI. Culture is pending. Patient tearful and will be continued on celexa for now. Patient will be discharged to [facility] today in stable condition. Discharge diagnoses: 1. Dehydration and acute kidney injury, resolved. 2. Fall secondary to dizziness, orthostatic changes ruled out as cause, on stairs causing left radial fracture and left pelvic fracture. 3. Left groin pain due to left pelvic fracture. 4. Cardiomyopathy status post AICD placement. 5. History of carotid stenosis on Xarelto. 6. Early pneumonia and UTI Discharge plan: [facility] Impression and plan of care have been directed as dictated by the signing physician. Nancy Olivera nurse practitioner acting as scribe for signing physician. Patient Condition at Discharge: Good Plan - Discharge Summary New Discharge Prescriptions: New Acetaminophen Tab [Tylenol] 650 mg PO Q6HR PRN tab PRN Reason: Mild Pain Or Fever > 100.5 Meclizine [Antivert] 12.5 mg PO TID PRN tab PRN Reason: Vertigo Torsemide [Demadex] 80 mg PO DAILY tab traMADol HCl [Ultram] 50 mg PO QID #100 tab Moxifloxacin HCl [Avelox] 400 mg PO DAILY #10 tablet Magnesium Hydroxide [Milk of Magnesia Concentrate] 2,400 mg PO DAILY PRN ml PRN Reason: Constipation Sennosides-Docusate Sodium [Senokot-S] 1 each PO BID tab Continue Citalopram Hydrobromide [CeleXA] 40 mg PO HS Potassium Chloride ER [K-Dur 20] 40 meq PO BID Rivaroxaban [Xarelto] 20 mg PO DAILY Ranitidine HCl [Zantac] 150 mg PO BID PRN PRN Reason: Heartburn Spironolactone 100 mg PO DAILY Colchicine 0.6 mg PO DAILY PRN PRN Reason: pain Carvedilol [Coreg] 6.25 mg PO BID ALPRAZolam [Xanax] 2 mg PO HS PRN #30 tablet PRN Reason: Anxiety Discontinued Torsemide [Demadex] 100 mg PO DAILY HYDROcodone/APAP 5-325MG [[place]hn 5-325] 0.5 - 1 tab PO Q4HR PRN PRN Reason: Pain Discharge Medication List Citalopram Hydrobromide [CeleXA] 40 mg PO HS 07/16/14 [History] Potassium Chloride ER [K-Dur 20] 40 meq PO BID 11/20/14 [History] Ranitidine HCl [Zantac] 150 mg PO BID PRN 06/27/16 [History] Rivaroxaban [Xarelto] 20 mg PO DAILY 06/27/16 [History] Carvedilol [Coreg] 6.25 mg PO BID 06/09/17 [History] Colchicine 0.6 mg PO DAILY PRN 06/09/17 [History] Spironolactone 100 mg PO DAILY 06/09/17 [History] ALPRAZolam [Xanax] 2 mg PO HS PRN #30 tablet 06/11/17 [Rx] Acetaminophen Tab [Tylenol] 650 mg PO Q6HR PRN tab 06/11/17 [Rx] Meclizine [Antivert] 12.5 mg PO TID PRN tab 06/11/17 [Rx] Torsemide [Demadex] 80 mg PO DAILY tab 06/11/17 [Rx] traMADol HCl [Ultram] 50 mg PO QID #100 tab 06/11/17 [Rx] Magnesium Hydroxide [Milk of Magnesia Concentrate] 2,400 mg PO DAILY PRN ml 01/22 [Rx] Moxifloxacin HCl [Avelox] 400 mg PO DAILY #10 tablet 06/14/17 [Rx] Sennosides-Docusate Sodium [Senokot-S] 1 each PO BID tab 06/14/17 [Rx] Follow up Appointment(s)/Referral(s): Alex James DO [Doctor of Osteopathic Medicine] - 2 Weeks Basil Crowell DO [Primary Care Provider] - 1 Week (after discharge from [facility]) Ambulatory/Diagnostic Orders: Ambulatory Miscellaneous Order [MISC.AMB] Location: Determined By Patient Activity/Diet/Wound Care/Special Instructions: Keep splint clean, dry, and intact until follow up with Dr. James Sljonathan for comfort Toe touch weightbearing left lower extremity. Follow up with Dr. James in 2 weeks [facility] with any questions or concerns, [phone]. Discharge Disposition: TRANSFER TO SNF/ECF
== END 2017-06-14 15:45 | DRG 562 ==
LOC: EC 22:16 → 3OBS 23:58 → OBSVTOIN 06-10 11:35 → 5MS5E 06-10 13:01
PROVIDERS: ADMIT Internal Medicine; ATTEND Internal Medicine
DX: S52.122A Displaced fracture of head of left radius, initial encounter for closed fracture (principal); J18.9 Pneumonia, unspecified organism; N17.9 Acute kidney failure, unspecified; I48.0 Paroxysmal atrial fibrillation; I50.22 Chronic systolic (congestive) heart failure; N39.0 Urinary tract infection, site not specified; S32.592A Other specified fracture of left pubis, initial encounter for closed fracture; E86.0 Dehydration; D64.9 Anemia, unspecified; F32.9 Major depressive disorder, single episode, unspecified; F41.9 Anxiety disorder, unspecified; W10.9XXA Fall (on) (from) unspecified stairs and steps, initial encounter; Y92.009 Unspecified place in unspecified non-institutional (private) residence as the place of occurrence of the external cause; I25.10 Atherosclerotic heart disease of native coronary artery without angina pectoris; I25.5 Ischemic cardiomyopathy; I73.9 Peripheral vascular disease, unspecified; K21.9 Gastro-esophageal reflux disease without esophagitis; M10.9 Gout, unspecified; M16.0 Bilateral primary osteoarthritis of hip; R29.6 Repeated falls; Z79.01 Long term (current) use of anticoagulants; Z79.899 Other long term (current) drug therapy; Z85.820 Personal history of malignant melanoma of skin; Z87.891 Personal history of nicotine dependence; Z90.710 Acquired absence of both cervix and uterus; Z95.810 Presence of automatic (implantable) cardiac defibrillator; Z82.3 Family history of stroke; Z79.891 Long term (current) use of opiate analgesic; Z88.5 Allergy status to narcotic agent; Z88.1 Allergy status to other antibiotic agents; Z88.8 Allergy status to other drugs, medicaments and biological substances; I65.29 Occlusion and stenosis of unspecified carotid artery
CPT/HCPCS: 36415; 70450; 70486; 71045; 71260; 72125; 72170; 74177; 80048; 80053; 80306; 80320; 81001; 82150; 82550; 82553; 83605; 83690; 83735; 83880; 84484; 85025; 85027; 85610; 85730; 86850; 86900; 86901; 87502; 93005; 93306; 94760; 96365; 99285

== ENCOUNTER 2017-06-20 05:05 | Inpatient (IN) | payer MEDICARE ==
[2017-06-20 06:20] LABS: Basophils # (A) 0.1 k/uL (0-0.2); Basophils % (A) 1 %; Eosinophils # (A) 0.1 k/uL (0-0.7); Eosinophils % (A) 1 %; HGB 12.1 gm/dL (11.4-16.0); Hypochromasia Slight; Lymphocytes # (A) 0.8 k/uL (1.0-4.8); Lymphocytes % (A) 6 %; MCH 30.4 pg (25.0-35.0); MCHC 31.1 g/dL (31.0-37.0); MCV 97.8 fL (80.0-100.0); Macrocytosis Slight; Mean Platelet Volume 7.6; Monocytes # (A) 0.8 k/uL (0-1.0); Monocytes % (A) 5 %; Neutrophils # (A) 12.7 k/uL (1.3-7.7); Neutrophils % (A) 86 %; RBC 3.99 m/uL (3.80-5.40); RDW 15.8 % (11.5-15.5); WBC 14.7 k/uL (3.8-10.6)
[2017-06-20 06:28] LABS: ALT 12 U/L (9-52); AST 86 U/L (14-36); Albumin 4.5 g/dL (3.5-5.0); Alkaline Phosphatase 156 U/L (38-126); Anion Gap 14 mmol/L; Blood Urea Nitrogen 32 mg/dL (7-17); Calcium 9.3 mg/dL (8.4-10.2); Carbon Dioxide 16 mmol/L (22-30); Chloride 100 mmol/L (98-107); Glucose 122 mg/dL (74-99); Sodium 130 mmol/L (137-145); Total Bilirubin 2.2 mg/dL (0.2-1.3); Total Protein 8.3 g/dL (6.3-8.2)
[2017-06-20 06:33] LABS: Glucose,Whole Blood 149 mg/dL (75-99)
[2017-06-20 06:34] LABS: Platelet Count 465 k/uL (150-450)
--- NOTE | 2017-06-20 06:38 | CT ---
EXAM: CT Head Without Intravenous Contrast CLINICAL HISTORY: Reason: Pain TECHNIQUE: Axial computed tomography images of the head/brain without intravenous contrast. CTDI is 57.40 mGy and DLP is 1098.80 mGy-cm. This CT exam was performed using one or more of the following dose reduction techniques: automated exposure control, adjustment of the mA and/or kV according to patient size, and/or use of iterative reconstruction technique. COMPARISON: 06/08/2017. FINDINGS: Brain: Stable cerebral atrophy noted. The partially calcified presumed meningioma is similar in appearance to previous examination involving the left frontal calvarium. No hemorrhage. No significant white matter disease. Ventricles: Unremarkable. No ventriculomegaly. Bones/joints: Unremarkable. No acute fracture. Soft tissues: Unremarkable. Sinuses: Unremarkable as visualized. No acute sinusitis. Mastoid air cells: Unremarkable as visualized. No mastoid effusion. Other findings: IMPRESSION: Stable cerebral atrophy without acute intracranial process identified. EXAM: CT Cervical Spine Without Intravenous Contrast CLINICAL HISTORY: Reason: Pain TECHNIQUE: Axial computed tomography images of the cervical spine without intravenous contrast. CTDI is 18.40 mGy and DLP is 407.60 mGy-cm. This CT exam was performed using one or more of the following dose reduction techniques: automated exposure control, adjustment of the mA and/or kV according to patient size, and/or use of iterative reconstruction technique. Coronal and sagittal reformatted images were created and reviewed. COMPARISON: 06/08/2017. FINDINGS: Vertebrae: Grade 1 anterolisthesis of C4 on C5 noted without alteration in appearance. Fusion of C5 with C6 and C7 with T1 is again noted. No acute fracture. Discs/spinal canal/neural foramina: No acute findings. No spinal canal stenosis. Soft tissues: Unremarkable. Vasculature: Left subclavian artery to left common carotid artery bypass graft suggested. Lung apices: Unremarkable as visualized. Tubes, lines and devices: Left subclavian pacer leads noted. IMPRESSION: Stable grade 1 anterolisthesis of C4 on C5 and underlying degenerative changes. No acute osseous traumatic injury or significant interval change from previous examination.
[2017-06-20 06:40] LABS: Appearance,Urine Clear (Clear); Bilirubin,Urine Negative (Negative); Blood,Urine Negative (Negative); Color,Urine Yellow; Glucose,Urine (UA) Negative (Negative); Ketones,Urine Trace (Negative); Leukocyte Esterase,Urine Negative (Negative); Nitrite,Urine Negative (Negative); Protein,Urine Negative (Negative); Specific Gravity,Urine 1.013 (1.001-1.035); Urobilinogen,Urine <2.0 mg/dL (<2.0)
--- NOTE | 2017-06-20 06:40 | XR ---
EXAM: XR Chest, 1 View CLINICAL HISTORY: Reason: Pain TECHNIQUE: Frontal view of the chest. COMPARISON: 06/10/2017 FINDINGS: Lungs: Partial opacification of the left hemidiaphragm is less pronounced on this examination when compared to previous. Pleural space: Unremarkable. No pneumothorax. Heart: Stable cardiomegaly. Mediastinum: Unremarkable. Bones/joints: Unremarkable. Tubes, lines and devices: Left subclavian pacer leads identified. IMPRESSION: Stable cardiomegaly. Slight improved aeration at the left lung base noted when compared to previous examination.
[2017-06-20 06:41] LABS: Creatine Kinase 224 U/L (30-135)
--- NOTE | 2017-06-20 06:42 | XR ---
EXAM: XR Pelvis, 1 or 2 Views CLINICAL HISTORY: Reason: Pain TECHNIQUE: Frontal view of the pelvis. COMPARISON: 06/08/2017 FINDINGS: Bones/joints: Displaced fracture is seen involving the superior and inferior left pubic rami. Mildly displaced fracture is noted involving the right symphysis pubis. No dislocation. Soft tissues: Unremarkable. IMPRESSION: 1. Displaced fractures involving the left superior and inferior pubic rami. 2. Mildly displaced fracture involving the right symphysis pubis suggested. CT examination would provide greater detail of this region.
[2017-06-20 06:54] LABS: Troponin I <0.012 ng/mL (0.000-0.034)
[2017-06-20 06:57] LABS: Creatine Kinase MB 5.2 ng/mL (0.0-2.4)
--- NOTE | 2017-06-20 08:12 | ED ---
Fall HPI - General Chief Complaint: Fall Stated Complaint: Fall Time Seen by Provider: 06/20/17 05:08 Source: EMS Mode of arrival: ambulatory Limitations: altered mental status - History of Present Illness Initial Comments: this patient is a 71-year-old woman sent here to be evaluated from her rehabilitation home, where she reportedly had a fall. Staff phone the patient' s on the ground after she had reportedly gotten out of bed. She is transferred here by ambulance. The patient does appear to be having some delirium versus dementia. She does complain of some neck pain. She is not able to describe how the fall occurred. MD Complaint: fall -: unknown Fall From: standing When Fall Occurred: unsure Fall Witnessed: no Place Fall Occurred: [facility] Loss of Consciousness: unsure Prolonged Down Time?: unclear Location: neck Severity: mild - Related Data Home Medications Medication Instructions Recorded Confirmed Citalopram Hydrobromide [CeleXA] 40 mg PO HS 07/16/14 06/09/17 Potassium Chloride ER [K-Dur 20] 40 meq PO BID 11/20/14 06/09/17 Ranitidine HCl [Zantac] 150 mg PO BID PRN 06/27/16 06/08/17 Rivaroxaban [Xarelto] 20 mg PO DAILY 06/27/16 06/09/17 Carvedilol [Coreg] 6.25 mg PO BID 06/09/17 06/09/17 Colchicine 0.6 mg PO DAILY PRN 06/09/17 06/08/17 Spironolactone 100 mg PO DAILY 06/09/17 06/09/17 Previous Rx's Medication Instructions Recorded ALPRAZolam [Xanax] 2 mg PO HS PRN #30 tablet 06/11/17 Acetaminophen Tab [Tylenol] 650 mg PO Q6HR PRN tab 06/11/17 Meclizine [Antivert] 12.5 mg PO TID PRN tab 06/11/17 Torsemide [Demadex] 80 mg PO DAILY tab 06/11/17 traMADol HCl [Ultram] 50 mg PO QID #100 tab 06/11/17 Magnesium Hydroxide [Milk of 2,400 mg PO DAILY PRN ml 06/14/17 Magnesia Concentrate] Moxifloxacin HCl [Avelox] 400 mg PO DAILY #10 tablet 06/14/17 Sennosides-Docusate Sodium 1 each PO BID tab 06/14/17 [Senokot-S] Allergies Allergy/AdvReac Type Severity Reaction Status Date / Time cephalexin monohydrate Allergy Rash/Hives Verified 06/20/17 05:20 [From Keflex] lisinopril Allergy Rash/Hives Verified 06/20/17 05:20 morphine Allergy Rash/Hives/ Verified 06/20/17 05:20 Sob warfarin [From Coumadin] Allergy Rash/Hives Verified 06/20/17 05:20 codeine AdvReac Nausea & Verified 06/20/17 05:20 Vomiting hydrocodone [From [place]] AdvReac Nausea & Verified 06/20/17 05:20 Vomiting Review of Systems ROS Statement: Those systems with pertinent positive or pertinent negative responses have been documented in the HPI. ROS Other: All systems not noted in ROS Statement are negative. 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 [place] 10/02/14 TO CHECK AICD Past Anesthesia/Blood Transfusion Reactions: Motion Sickness Type of Cardiac Device: Permanent Pacemaker, AICD Device Placement Date:: 2011 Past Psychological History: Anxiety Smoking Status: Former smoker Past Alcohol Use History: None Reported Past Drug Use History: None Reported - Past Family History Father Additional Family Medical History / Comment(s): Father from old age. Daughter(s) Additional Family Medical History / Comment(s): Patient has 2 adult children with no major medical problems. Mother Family Medical History: CVA/TIA Additional Family Medical History / Comment(s): Mother from old age. General Exam Limitations: altered mental status General appearance: alert Head exam: Present: atraumatic, normocephalic Eye exam: Present: normal appearance. Absent: scleral icterus, conjunctival injection ENT exam: Present: mucous membranes dry Neck exam: Present: tenderness (there is some upper cervical tenderness in the midline.), other (cervical collar) Respiratory exam: Present: normal lung sounds bilaterally. Absent: respiratory distress, wheezes, rales, rhonchi, stridor, chest wall tenderness Cardiovascular Exam: Present: regular rate, normal rhythm, normal heart sounds. Absent: systolic murmur, diastolic murmur, rubs, gallop GI/Abdominal exam: Present: soft. Absent: distended, tenderness, guarding, rebound, rigid Extremities exam: Present: normal inspection, normal capillary refill. Absent: pedal edema, calf tenderness Back exam: Present: normal inspection. Absent: CVA tenderness (R), CVA tenderness (L) Neurological exam: Present: alert, CN II-XII intact. Absent: oriented X3 ( patient is oriented only to person), motor sensory deficit Skin exam: Present: warm, dry, intact, normal color. Absent: rash Course Vital Signs 06/20/17 06/20/17 06/20/17 05:14 06:40 07:25 Temperature 97.7 F Pulse Rate 81 80 84 Respiratory 18 17 17 Rate Blood Pressure 158/94 133/69 130/76 O2 Sat by Pulse 96 94 L 93 L Oximetry Medical Decision Making - Medical Decision Making this patient is a 71-year-old woman in from her rehabilitation facility after she had a fall there. The patient is acutely delirious on arrival. Her initial workup does not reveal evidence of intracranial injury. Labs reveal elevated bilirubin, alk phos, mild elevation of AST, and patient will have computed tomography scan of the abdomen. patient given Zosyn as coverage against possible cholecystitis. I discussed the case with Dr. Mccullough, will also see the patient. she'll be admitted for acute delirium, and the differential at this point includes early sepsis, medication side effect, close head injury, sundowning, as well as other etiologies. - Lab Data Result diagrams: 06/20/17 06:00 06/20/17 06:00 Lab Results 06/20/17 06/20/17 06/20/17 Range/Units 06:00 06:00 06:00 WBC 14.7 H (3.8-10.6) k/uL RBC 3.99 (3.80-5.40) m/uL Hgb 12.1 (11.4-16.0) gm/dL Hct 39.0 (34.0-46.0) % MCV 97.8 (80.0-100.0) fL MCH 30.4 (25.0-35.0) pg MCHC 31.1 (31.0-37.0) g/dL RDW 15.8 H (11.5-15.5) % Plt Count 465 H D (150-450) k/uL Neutrophils % 86 % Lymphocytes % 6 % Monocytes % 5 % Eosinophils % 1 % Basophils % 1 % Neutrophils # 12.7 H (1.3-7.7) k/uL Lymphocytes # 0.8 L (1.0-4.8) k/uL Monocytes # 0.8 (0-1.0) k/uL Eosinophils # 0.1 (0-0.7) k/uL Basophils # 0.1 (0-0.2) k/uL Hypochromasia Slight Macrocytosis Slight Sodium 130 L (137-145) mmol/L Potassium (3.5-5.1) mmol/L Chloride 100 (98-107) mmol/L Carbon Dioxide 16 L (22-30) mmol/L Anion Gap 14 mmol/L BUN 32 H (7-17) mg/dL Creatinine 0.90 (0.52-1.04) mg/dL Est GFR (MDRD) Af Amer >60 (>60 ml/min/1.73 sqM) Est GFR (MDRD) Non-Af >60 (>60 ml/min/1.73 sqM) Glucose 122 H (74-99) mg/dL POC Glucose (mg/dL) (75-99) mg/dL POC Glu [employer] ID Calcium 9.3 (8.4-10.2) mg/dL Total Bilirubin 2.2 H (0.2-1.3) mg/dL AST 86 H (14-36) U/L ALT 12 (9-52) U/L Alkaline Phosphatase 156 H (38-126) U/L Total Creatine Kinase 224 H (30-135) U/L CK-MB (CK-2) 5.2 H* (0.0-2.4) ng/mL CK-MB (CK-2) Rel Index 2.3 Troponin I <0.012 (0.000-0.034) ng/mL Total Protein 8.3 H (6.3-8.2) g/dL Albumin 4.5 (3.5-5.0) g/dL Urine Color Urine Appearance (Clear) Urine pH (5.0-8.0) Ur Specific [place] (1.001-1.035) Urine Protein (Negative) Urine Glucose (UA) (Negative) Urine Ketones (Negative) Urine Blood (Negative) Urine Nitrite (Negative) Urine Bilirubin (Negative) Urine Urobilinogen (<2.0) mg/dL Ur Leukocyte Esterase (Negative) 06/20/17 06/20/17 Range/Units 06:24 06:31 WBC (3.8-10.6) k/uL RBC (3.80-5.40) m/uL Hgb (11.4-16.0) gm/dL Hct (34.0-46.0) % MCV (80.0-100.0) fL MCH (25.0-35.0) pg MCHC (31.0-37.0) g/dL RDW (11.5-15.5) % Plt Count (150-450) k/uL Neutrophils % % Lymphocytes % % Monocytes % % Eosinophils % % Basophils % % Neutrophils # (1.3-7.7) k/uL Lymphocytes # (1.0-4.8) k/uL Monocytes # (0-1.0) k/uL Eosinophils # (0-0.7) k/uL Basophils # (0-0.2) k/uL Hypochromasia Macrocytosis Sodium (137-145) mmol/L Potassium (3.5-5.1) mmol/L Chloride (98-107) mmol/L Carbon Dioxide (22-30) mmol/L Anion Gap mmol/L BUN (7-17) mg/dL Creatinine (0.52-1.04) mg/dL Est GFR (MDRD) Af Amer (>60 ml/min/1.73 sqM) Est GFR (MDRD) Non-Af (>60 ml/min/1.73 sqM) Glucose (74-99) mg/dL POC Glucose (mg/dL) 149 H (75-99) mg/dL POC Glu [employer] Cook ID Sania Lion Calcium (8.4-10.2) mg/dL Total Bilirubin (0.2-1.3) mg/dL AST (14-36) U/L ALT (9-52) U/L Alkaline Phosphatase (38-126) U/L Total Creatine Kinase (30-135) U/L CK-MB (CK-2) (0.0-2.4) ng/mL CK-MB (CK-2) Rel Index Troponin I (0.000-0.034) ng/mL Total Protein (6.3-8.2) g/dL Albumin (3.5-5.0) g/dL Urine Color Yellow Urine Appearance Clear (Clear) Urine pH 6.0 (5.0-8.0) Ur Specific [place] 1.013 (1.001-1.035) Urine Protein Negative (Negative) Urine Glucose (UA) Negative (Negative) Urine Ketones Trace H (Negative) Urine Blood Negative (Negative) Urine Nitrite Negative (Negative) Urine Bilirubin Negative (Negative) Urine Urobilinogen <2.0 (<2.0) mg/dL Ur Leukocyte Esterase Negative (Negative) - EKG Data -: EKG Interpreted by Ne EKG shows normal: sinus rhythm, axis (normal), intervals (normal), ST-T waves ( T inversions in the inferior and lateral leads 23 aVL and V5 V6) Rate: normal (rate 85 bpm) When compared to previous EKG there are: other (06/09/2017, the EKG is similar) Disposition Clinical Impression: Fall, Acute delirium, Elevated bilirubin, Elevated alkaline phosphatase level Disposition: ADMITTED IP TO THIS HOSP Condition: Poor Referrals: Dorita Jiang MD [Primary Care Provider] - 1-2 days
[2017-06-20] MEDS ORDERED: PIPERACILLIN-TAZOBACTAM 3.375 GM in DEXTROSE/WATER 1 50ML.BAG IVPB STA (08:14)
[2017-06-20] MEDS ORDERED: RX INFO: IV CONTRAST WAS GIVEN 1 EACH MISC MISCELLANE PRN (08:14)
[2017-06-20] MEDS ORDERED: SODIUM CHLORIDE 0.9% 1,000 ML IV ONE (08:27)
[2017-06-20] MEDS ORDERED: NALOXONE 0.4 MG/ML 1 ML VIAL IV PRN (09:24)
[2017-06-20] MEDS ORDERED: FAMOTIDINE 20 MG TAB PO PRN (09:26)
[2017-06-20] MEDS ORDERED: MECLIZINE 12.5 MG TAB PO PRN (09:26)
[2017-06-20] MEDS ORDERED: ONDANSETRON 4 MG TAB PO PRN (09:26)
[2017-06-20] MEDS ORDERED: COLCHICINE 0.6 MG TAB PO PRN (09:26)
[2017-06-20] MEDS ORDERED: MAGNESIUM HYDROXIDE 2,400 MG/10 ML CUP PO PRN (09:26)
[2017-06-20] MEDS ORDERED: ALPRAZolam 0.5 MG TAB PO PRN (09:26)
--- NOTE | 2017-06-20 10:11 | CT ---
EXAMINATION TYPE: CT abdomen pelvis w con DATE OF EXAM: 06/20/2017 REFERENCE: Previous CT scan of the chest, abdomen and pelvis dated 06/08/2017 HISTORY: Pain HISTORY: Fall, unwitnessed. REFERENCE: NONE CT DLP: 768.30 mGy Automated exposure control for dose reduction was used. TECHNIQUE: Helical acquisition through the abdomen and pelvis was obtained following the oral ingesti on of without Oral Contrast and following intravenous administration of 100 ml mL of Omnipaque 300. T he data was reformatted in axial, coronal and sagittal projections. FINDINGS: There is minimal dependent atelectasis at the left lung base. There is no pleural or peric ardial fluid. The heart is enlarged. Within the abdomen, there is a partial eventration of the right hemidiaphragm. The liver is prominent measuring 19 cm. The spleen and gallbladder are normal. Both adrenal glands are normal. There is stable cystic disease in the left kidney. These cysts appear simply cystic and are approxima tely 1 cm in size. The kidneys are otherwise unremarkable. The pancreas is normal. There is no significant retroperitoneal, iliac or inguinal adenopathy. The bladder is unremarkable. There are scattered diverticula within the sigmoid colon. There is no evidence of diverticulitis. The appendix is not visualized with certainty. Small bowel loops are of normal caliber. There is no free fluid and no free air identified. There is a mildly displaced fracture the superior pubic ramus on the right. There is a mildly displac ed fracture the superior ramus on the left knee the acetabulum. There are minimally displaced fractur es of both inferior pubic rami. There is degenerative disc disease, hypertrophic spondylosis and a vacuum phenomena present at L5-S1. No other spinal fracture is identified. No displaced rib fractures identified. IMPRESSION: 1. FRACTURES OF THE SUPERIOR INFERIOR PUBIC RAMI BILATERALLY. 2. CARDIOMEGALY. 3. PARTIAL EVENTRATION OF THE RIGHT HEMIDIAPHRAGM. 4. HEPATOMEGALY. 5. STABLE CYSTIC DISEASE IN THE LEFT KIDNEY. 6. MINIMAL, UNCOMPLICATED DIVERTICULOSIS OF THE SIGMOID COLON.
--- NOTE | 2017-06-20 10:45 | US ---
EXAMINATION TYPE: US abdomen limited DATE OF EXAM: 06/20/2017 COMPARISON: CT today CLINICAL HISTORY: Pain, attention RUQ. Fall, RUQ pain EXAM MEASUREMENTS: Liver Length: 12.2 cm Gallbladder Wall: 0.2 cm CBD: 0.3 cm Right Kidney: 9.5 x 4.7 x 4.7 cm Patient confused and moving upper body during exam, possible broken pelvis from recent fall: did no t roll patient for LLD gallbladder images Pancreas: obscured by overlying midline bowel gas Liver: visualized portions wnl, scanned intercostally, limited by rib shadowing Gallbladder: wnl Evidence for sonographic Farias's sign: n/a CBD: visualized portions wnl, limited by overlying bowel gas Right Kidney: visualized portions wnl, inferior pole partially obscured by overlying bowel gas The pancreas is not visualized. The liver is normal in size without dilatation. The gallbladder is unremarkable without evidence of cholelithiasis. The gallbladder wall measures 2 m m. This common hepatic duct measures 3 mm. Limited views of the right kidney are unremarkable. IMPRESSION: NO ACUTE RIGHT UPPER QUADRANT ABNORMALITY.
--- NOTE | 2017-06-20 10:51 | P.HPIM ---
History of Present Illness H&P Date: 06/20/17 Chief Complaint: Mental status changes This is a 71-year-old female. Her primary care physician is Dr. Basil Crowell. She has a past medical history of hypotension, gastroesophageal reflux disease, coronary artery disease, carotid stenosis and ischemic cardiomyopathy status post AICD, gout, anxiety and depression. She was recently hospitalized on June 08 following a fall secondary to dizziness with orthostatic changes ruled out. She ended up having a left radial fracture and left pelvic fracture. She was seen by orthopedics and they recommended splint and sling to the left arm and toe-touch weightbearing on the left lower extremity with follow-up with Dr. Montero 2 weeks. Patient was discharged here to [facility] for subacute rehab. She was discharged on tramadol as well as Avelox for early pneumonia and UTI. Patient was apparently found on the floor by her nurse this morning and was confused. Her states she was confused yesterday and he left there at 7 PM he also states she has had some twitching movements. Patient has a long-standing history of cholecystitis but surgery was not recommended due to her heart condition. Patient states that she was sitting in a chair or wheelchair and passed out but this is not confirmed. Patient is able to answer to person and place and time but is otherwise noted to be confused. CAT scan of the head revealed stable cerebral atrophy without acute intracranial process. Chest x-ray shows stable cardiomegaly. Slight improved aeration of the left lung base noted. Pelvis x- ray shows displaced fractures involving the left superior and inferior pubic rami. A mildly displaced fracture involving the right symphysis pubis suggested. Patient also was found to have elevated liver function tests with total bilirubin 2.2, AST 86 and alkaline phosphatase 156. Urinalysis was clear with nitrate and leukoesterase negative. CAT scan of the abdomen and pelvis revealed fractures of the superior inferior pubic rami bilaterally, cardiomegaly , partially eventration of the right hemidiaphragm, hepatomegaly, stable cystic disease in the left kidney. Minimal uncomplicated diverticulosis of the sigmoid colon. Patient was given a dose of Zosyn and admitted to the selective care unit for syncope and possible seizure activity and consult requested with neurology, EEG and carotid ultrasound ordered, tramadol, Avelox and Zofran discontinued. Review of Systems ROS unobtainable: due to mental status All systems: negative Constitutional: Denies chills, Denies fever Eyes: denies blurred vision, denies pain Ears, nose, mouth and throat: Denies headache, Denies sore throat Cardiovascular: Denies chest pain, Denies shortness of breath Respiratory: Denies cough Gastrointestinal: Denies abdominal pain, Denies diarrhea, Denies nausea, Denies vomiting Genitourinary: Denies dysuria, Denies hematuria Musculoskeletal: Denies myalgias Integumentary: Denies pruritus, Denies rash Neurological: Denies numbness, Denies weakness Psychiatric: Denies anxiety, Denies depression Endocrine: Denies fatigue, Denies weight change Past Medical History Past Medical History: Atrial Fibrillation, Coronary Artery Disease (CAD), Cancer , GERD/Reflux, Pneumonia Additional Past Medical History / Comment(s): 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 [place] [facility] [place] [place] 10/02/14 TO CHECK AICD Past Anesthesia/Blood Transfusion Reactions: Motion Sickness Type of Cardiac Device: Permanent Pacemaker, AICD Device Placement Date:: 2011 Past Psychological History: Anxiety Smoking Status: Former smoker Past Alcohol Use History: None Reported Additional Past Alcohol Use History / Comment(s): Patient started smoking at age 19 and quit in 1999 for a half a pack per day. No alcohol or illicit drug use. Patient is and lives at home with her . Past Drug Use History: None Reported - Past Family History Father Additional Family Medical History / Comment(s): Father from old age. Daughter(s) Additional Family Medical History / Comment(s): Patient has 2 adult children with no major medical problems. Mother Family Medical History: CVA/TIA Additional Family Medical History / Comment(s): Mother from old age. Medications and Allergies Home Medications Medication Instructions Recorded Confirmed Type RX: Citalopram Hydrobromide 40 mg PO HS@2100 07/16/14 06/20/17 History [CeleXA] RX: Potassium Chloride ER [K-Dur 40 meq PO BID 11/20/14 06/20/17 History 20] RX: Ranitidine HCl [Zantac] 150 mg PO BID PRN 06/27/16 06/20/17 History RX: Rivaroxaban [Xarelto] 20 mg PO DAILY 06/27/16 06/20/17 History RX: Carvedilol [Coreg] 6.25 mg PO BID 06/09/17 06/20/17 History RX: Colchicine 0.6 mg PO DAILY PRN 06/09/17 06/20/17 History RX: Spironolactone 100 mg PO DAILY 06/09/17 06/20/17 History RX: ALPRAZolam [Xanax] 2 mg PO HS PRN #30 tablet 06/11/17 06/20/17 Rx RX: Meclizine [Antivert] 12.5 mg PO TID PRN tab 06/11/17 06/20/17 Rx RX: Torsemide [Demadex] 80 mg PO DAILY tab 06/11/17 06/20/17 Rx Moxifloxacin HCl [Avelox] 400 mg PO DAILY #10 tablet 06/14/17 06/20/17 Rx RX: Magnesium Hydroxide [Milk of 2,400 mg PO DAILY PRN ml 06/14/17 06/20/17 Rx Magnesia Concentrate] Cholecalciferol [Vitamin D3] 3,000 unit PO DAILY 06/20/17 06/20/17 History Cyanocobalamin [Vitamin B-12] 500 mcg PO DAILY 06/20/17 06/20/17 History Ondansetron [Zofran] 4 mg PO Q6H PRN 06/20/17 06/20/17 History RX: Sennosides-Docusate Sodium 1 tab PO BID 06/20/17 06/20/17 History [Senokot-S] Allergies Allergy/AdvReac Type Severity Reaction Status Date / Time cephalexin monohydrate Allergy Rash/Hives Verified 06/20/17 08:38 [From Keflex] lisinopril Allergy Rash/Hives Verified 06/20/17 08:38 morphine Allergy Rash/Hives/ Verified 06/20/17 08:38 Sob warfarin [From Coumadin] Allergy Rash/Hives Verified 06/20/17 08:38 codeine AdvReac Nausea & Verified 06/20/17 08:38 Vomiting hydrocodone [From [place]rencro] AdvReac Nausea & Verified 06/20/17 08:38 Vomiting Physical Exam Vitals: Vital Signs Temp Pulse Resp BP Pulse Ox 06/20/17 08:37 74 20 134/77 94 L 06/20/17 07:25 84 17 130/76 93 L 06/20/17 06:40 80 17 133/69 94 L 06/20/17 05:14 97.7 F 81 18 158/94 96 Intake and Output 06/19/17 06/20/17 06/20/17 22:59 06:59 14:59 Other: Weight 70.76 kg Gen: This is a 71-year-old female. She is seen in bed and appears to be comfortable. HEENT: Head is atraumatic, normocephalic. Pupils equal, round. Sclerae is anicteric. NECK: Supple. No JVD. No lymphadenopathy. No thyromegaly. LUNGS: Clear to auscultation. No wheezes or rhonchi. No intercostal retractions. HEART: Regular rate and rhythm. No murmur. ABDOMEN: Soft. Bowel sounds are present. No masses. No tenderness. EXTREMITIES: No pedal edema. No calf tenderness. Tenderness to the left groin. NEUROLOGICAL: Patient is awake, alert and oriented x3 but noted confusion regarding events that brought her into the hospital. Cranial nerves 2 through 12 are grossly intact Results CBC & Chem 7: 06/22/17 05:53 06/22/17 05:53 Labs: Abnormal Lab Results - Last 24 Hours (Table) 06/20/17 06/20/17 06/20/17 Range/Units 06:00 06:00 06:00 WBC 14.7 H (3.8-10.6) k/uL RDW 15.8 H (11.5-15.5) % Plt Count 465 H D (150-450) k/uL Neutrophils # 12.7 H (1.3-7.7) k/uL Lymphocytes # 0.8 L (1.0-4.8) k/uL Sodium 130 L (137-145) mmol/L Carbon Dioxide 16 L (22-30) mmol/L BUN 32 H (7-17) mg/dL Glucose 122 H (74-99) mg/dL POC Glucose (mg/dL) (75-99) mg/dL Total Bilirubin 2.2 H (0.2-1.3) mg/dL AST 86 H (14-36) U/L Alkaline Phosphatase 156 H (38-126) U/L Total Creatine Kinase 224 H (30-135) U/L CK-MB (CK-2) 5.2 H* (0.0-2.4) ng/mL Total Protein 8.3 H (6.3-8.2) g/dL Urine Ketones (Negative) 06/20/17 06/20/17 Range/Units 06:24 06:31 WBC (3.8-10.6) k/uL RDW (11.5-15.5) % Plt Count (150-450) k/uL Neutrophils # (1.3-7.7) k/uL Lymphocytes # (1.0-4.8) k/uL Sodium (137-145) mmol/L Carbon Dioxide (22-30) mmol/L BUN (7-17) mg/dL Glucose (74-99) mg/dL POC Glucose (mg/dL) 149 H (75-99) mg/dL Total Bilirubin (0.2-1.3) mg/dL AST (14-36) U/L Alkaline Phosphatase (38-126) U/L Total Creatine Kinase (30-135) U/L CK-MB (CK-2) (0.0-2.4) ng/mL Total Protein (6.3-8.2) g/dL Urine Ketones Trace H (Negative) Thrombosis Risk Factor Assmnt - DVT/VTE Prophylaxis DVT/VTE Prophylaxis: Pharmacologic Prophylaxis ordered Assessment and Plan Plan: 1. Syncopal episode secondary to possible QT prolongation secondary to use of Celexa, Avelox and Zofran, rule out arrhythmia, rule out orthostatic hypotension. Celexa, Avelox and Zofran have been discontinued. Cardiology consult. 2. Metabolic encephalopathy rule out seizure related to use of tramadol which reduces seizure threshold. Tramadol Avelox and Zofran all discontinued. EEG and carotid ultrasound ordered. Neurology consult with Dr. Tejeda. 3. Admission on June 08 status post fall on stairs causing left radial fracture and left pelvic fracture. Patient was seen by Dr. James at that time with recommendations: Keep splint clean, dry, and intact until follow up with Dr. James, Sling for comfort, toe-touch on the left side, Follow up with Dr. James in 2 weeks. 4. Ischemic cardiomyopathy status post AICD placement. 5. History of carotid stenosis. Continue Xarelto. 6. Gastrointestinal prophylaxis. Continue Pepcid 7. DVT prophylaxis. Continue Xarelto. Patient will be admitted to the hospital for a minimum of 2 night stay. Discharge plan: Return to [facility]. Impression and plan of care have been directed as dictated by the signing physician. Nancy Olivera nurse practitioner acting as scribe for signing physician.
[2017-06-20] MEDS: SODIUM CHLORIDE 0.9% 1,000 ML IV SCH ×2 (10:59→20:50)
[2017-06-20 13:42] LABS: Glucose,Whole Blood 123 mg/dL (75-99)
--- NOTE | 2017-06-20 14:08 | P.CNNES ---
History of Present Illness Consult date: 06/20/17 Reason for Consult: This patient is being evaluated for encephalopathy and possible seizure. History of Present Illness: this patient is a 71-year-old right-handed white female who was followed in the outpatient medical clinic with primary care physician Dr. Basil Crowell. The patient recently sustained a fall on 06/08/2017 and suffered a fracture of her left pelvis and left radial bone. She was seen by orthopedic surgery and was recommended this splint and sling to the left arm. She was also placed on toe- touch nonweightbearing on the left lower extremity. She is being followed by orthopedic surgery for this condition and was discharged to [facility] for subacute rehab. At the time of discharge to the [facility] the patient was placed on tramadol as well as Avelox for treatment of early pneumonia. She is also been on Celexa for treatment of mild depression. She also had a recent bout of urinary tract infection which was also being treated. early this morning at 5 AM at [facility] the patient was found on the floor next to her bed. She did not have any loss of consciousness and had no evidence of any abrasions or lacerations. According to the nursing staff that [facility] on [facility] the patient reportedly had tried to get out of bed possibly to go to the bathroom and had collapsed. She was unable to describe how she had fallen. According to the medical record the also noted that she was confused yesterday when he had seen her at about 7 PM. Nursing staff noted that the patient seemed to be very confused after the fall. She had some twitching movements as well but no obvious seizure activity. She was brought into the emergency room today for further evaluation. She was seen in the ER by Dr. Danielson who ordered a computed tomography scan of the brain. CAT scan of the brain reveals stable cerebral atrophy with no acute intracranial process identified. Computed tomography scan of the cervical spine reveals stable grade 1 anterolisthesis at C4-C5 with underlying degenerative changes. No osseous traumatic injury or significant interval changes were noted from previous examination. Laboratory testing in the ER revealed the patient to have elevated liver function testing. Her total bilirubin was 2.2. AST was 86. Her alkaline phosphatase was 156. Urine analysis was negative. The patient was given a dose of Zosyn in the ER. She was admitted with possibility of syncope versus seizure. She has a history of having had a left carotid endarterectomy in the past. She also has a AICD permanent pacemaker. She follows at the [facility] for this condition and does have history of atrial fibrillation in the past. She is seen by her oyster worker at the [facility] every 3 months. The patient is currently on Xarelto as she has a history of ischemic cardiomyopathy as well. was no evidence of any acute bleed on her computed tomography scan of the brain. She had no abrasions or lacerations from her recent fall. She was discontinued off of her tramadol, Avelox, and Zofran as all of these medications could cause possible side effect of seizures. A routine EEG will be ordered for this patient. Patient has no previous history of major close head injury or seizures as a young child. Due to her elevated liver enzymes is also concerned for a mild degree of encephalopathy. Her overall prognosis at this time remains guarded. This case was discussed at length with the patient's and children at bedside. All of their questions were answered. They are aware of our recommendations. She is now been admitted and neurology has been consulted for further evaluation and recommendations. Review of Systems Constitutional: Denies chills, Denies fever Eyes: denies blurred vision, denies pain Ears, nose, mouth and throat: Denies headache, Denies sore throat Cardiovascular: Denies chest pain, Denies shortness of breath Respiratory: Denies cough Gastrointestinal: Denies abdominal pain, Denies diarrhea, Denies nausea, Denies vomiting Genitourinary: Denies dysuria, Denies hematuria Musculoskeletal: Denies myalgias Integumentary: Denies pruritus, Denies rash Neurological: Reports change in mentation, Reports confusion, Reports paresthesias, Reports syncope, Denies numbness, Denies weakness Psychiatric: Denies anxiety, Denies depression Endocrine: Denies fatigue, Denies weight change Past Medical History Past Medical History: Atrial Fibrillation, Coronary Artery Disease (CAD), Cancer , GERD/Reflux, Pneumonia Additional Past Medical History / Comment(s): 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 SEES SPECIALIST IN [place] 10/02/14 TO CHECK AICD Past Anesthesia/Blood Transfusion Reactions: Motion Sickness Type of Cardiac Device: Permanent Pacemaker, AICD Device Placement Date:: 2011 Past Psychological History: Anxiety Smoking Status: Former smoker Past Alcohol Use History: None Reported Additional Past Alcohol Use History / Comment(s): Patient started smoking at age 19 and quit in 1999 for a half a pack per day. No alcohol or illicit drug use. Patient is and lives at home with her . Past Drug Use History: None Reported - Past Family History Father Additional Family Medical History / Comment(s): Father from old age. Daughter(s) Additional Family Medical History / Comment(s): Patient has 2 adult children with no major medical problems. Mother Family Medical History: CVA/TIA Additional Family Medical History / Comment(s): Mother from old age. Medications and Allergies Home Medications Medication Instructions Recorded Confirmed Type Citalopram Hydrobromide [CeleXA] 40 mg PO HS@2100 07/16/14 06/20/17 History Potassium Chloride ER [K-Dur 20] 40 meq PO BID 11/20/14 06/20/17 History Ranitidine HCl [Zantac] 150 mg PO BID PRN 06/27/16 06/20/17 History Rivaroxaban [Xarelto] 20 mg PO DAILY 06/27/16 06/20/17 History Carvedilol [Coreg] 6.25 mg PO BID 06/09/17 06/20/17 History Colchicine 0.6 mg PO DAILY PRN 06/09/17 06/20/17 History Spironolactone 100 mg PO DAILY 06/09/17 06/20/17 History ALPRAZolam [Xanax] 2 mg PO HS PRN #30 tablet 06/11/17 06/20/17 Rx Meclizine [Antivert] 12.5 mg PO TID PRN tab 06/11/17 06/20/17 Rx Torsemide [Demadex] 80 mg PO DAILY tab 06/11/17 06/20/17 Rx Magnesium Hydroxide [Milk of 2,400 mg PO DAILY PRN ml 06/14/17 06/20/17 Rx Magnesia Concentrate] Moxifloxacin HCl [Avelox] 400 mg PO DAILY #10 tablet 06/14/17 06/20/17 Rx Cholecalciferol [Vitamin D3] 3,000 unit PO DAILY 06/20/17 06/20/17 History Cyanocobalamin [Vitamin B-12] 500 mcg PO DAILY 06/20/17 06/20/17 History Ondansetron [Zofran] 4 mg PO Q6H PRN 06/20/17 06/20/17 History Sennosides-Docusate Sodium 1 tab PO BID 06/20/17 06/20/17 History [Senokot-S] Allergies Allergy/AdvReac Type Severity Reaction Status Date / Time cephalexin monohydrate Allergy Rash/Hives Verified 06/20/17 08:38 [From Keflex] lisinopril Allergy Rash/Hives Verified 06/20/17 08:38 morphine Allergy Rash/Hives/ Verified 06/20/17 08:38 Sob warfarin [From Coumadin] Allergy Rash/Hives Verified 06/20/17 08:38 codeine AdvReac Nausea & Verified 06/20/17 08:38 Vomiting hydrocodone [From [place]] AdvReac Nausea & Verified 06/20/17 08:38 Vomiting Physical Examination - Vital Signs Vital Signs: Vital Signs Temp Pulse Resp BP Pulse Ox 06/20/17 10:30 97.7 F 84 20 121/66 95 06/20/17 08:37 74 20 134/77 94 L 06/20/17 07:25 84 17 130/76 93 L 06/20/17 06:40 80 17 133/69 94 L 06/20/17 05:14 97.7 F 81 18 158/94 96 Intake and Output 06/19/17 06/20/17 06/20/17 22:59 06:59 14:59 Other: Weight 70.76 kg - Constitutional General appearance: average body habitus, cooperative - EENT EENT: mucous membranes moist, mucous membranes dry - Respiratory Respiratory: lungs clear, normal breath sounds - Cardiovascular Cardiovascular: regular rate, normal S1, normal S2 Extremities: no peripheral edema bilaterally - Gastrointestinal Gastrointestinal: normoactive bowel sounds - Integumentary Integumentary: normal - Neurologic Cranial nerve examination: PERRL, EOMI, V1/V2/V3 grossly intact, face symmetric , tongue midline, intact gag reflex, intact corneal reflex, normal palatal elevation Speech examination: intact Sensorimotor examination: intact Detailed motor examination: grossly full strength in all extremities Motor examination - right side: 3/5: biceps, triceps, wrist flexion, wrist extension, electrical controls designer, hip flexors, knee extensors, dorsiflexion, toe extension (EHL) , plantarflexion Motor examination - left side: 3/5: biceps, triceps, wrist flexion, wrist extension, electrical controls designer, hip flexors, knee extensors, dorsiflexion, toe extension (EHL) , plantarflexion Detailed sensory examination: intact Reflex and gait examination: intact Reflexes: 1+: ankle, bicep, knee, tricep - Musculoskeletal Musculoskeletal: no pain - Psychiatric Psychiatric: mood/affect appropriate, cooperative Results - Laboratory Findings CBC and BMP: 06/20/17 06:00 06/20/17 06:00 Abnormal Lab Findings: Abnormal Labs 06/20/17 06/20/17 06/20/17 06:00 06:00 06:00 WBC 14.7 H RDW 15.8 H Plt Count 465 H D Neutrophils # 12.7 H Lymphocytes # 0.8 L Sodium 130 L Carbon Dioxide 16 L BUN 32 H Glucose 122 H POC Glucose (mg/dL) Total Bilirubin 2.2 H AST 86 H Alkaline Phosphatase 156 H Total Creatine Kinase 224 H CK-MB (CK-2) 5.2 H* Total Protein 8.3 H Urine Ketones 06/20/17 06/20/17 06:24 06:31 WBC RDW Plt Count Neutrophils # Lymphocytes # Sodium Carbon Dioxide BUN Glucose POC Glucose (mg/dL) 149 H Total Bilirubin AST Alkaline Phosphatase Total Creatine Kinase CK-MB (CK-2) Total Protein Urine Ketones Trace H Assessment and Plan (1) Acute encephalopathy Current Visit: Yes Status: Acute Code(s): G93.40 - ENCEPHALOPATHY, UNSPECIFIED SNOMED Code(s): 0716160 (2) Ischemic cardiomyopathy Current Visit: Yes Status: Acute Code(s): I25.5 - ISCHEMIC CARDIOMYOPATHY SNOMED Code(s): 392911798 (3) History of implantable cardioverter-defibrillator (ICD) placement Current Visit: Yes Status: Acute Code(s): Z95.810 - PRESENCE OF AUTOMATIC ( IMPLANTABLE) CARDIAC DEFIBRILLATOR SNOMED Code(s): 948489902 (4) Atrial fibrillation Current Visit: Yes Status: Acute Code(s): I48.91 - UNSPECIFIED ATRIAL FIBRILLATION SNOMED Code(s): 09563119 (5) Acute delirium Current Visit: Yes Status: Acute Code(s): R41.0 - DISORIENTATION, UNSPECIFIED SNOMED Code(s): 1066205 (6) Fracture of pubic ramus Current Visit: No Status: Acute Code(s): S32.599A - OTH FRACTURE OF UNSP PUBIS, INIT ENCNTR FOR CLOSED FRACTURE SNOMED Code(s): 07624915 (7) Left radial head fracture Current Visit: No Status: Acute Code(s): S52.122A - DISP FX OF HEAD OF LEFT RADIUS, INIT FOR CLOS FX SNOMED Code(s): 661727426 Plan: this patient is a 71-year-old left-handed white female who was admitted to [facility] after sustaining a fall at [facility] on the [facility]. The patient was found early this morning at 5 AM collapsed next to her bed. She did not have any loss of consciousness. She appeared to be slightly confused. EMS was called and she was transported to the emergency room for further evaluation. She was seen in the ER by Dr. Danielson. She appeared to be confused and mildly delirious in the ER. She was seen in the ER by Dr. Mccullough. Several of her medications were discontinuedthat could possibly have caused her to become more confused and disoriented. She was sent for computed tomography scan of the brain which revealed stable evidence of cerebral atrophy without acute intracranial process. There is no evidence of acute hemorrhage or bleed. She is continuing to use Xarelto for treatment of ischemic cardiomyopathy. Patient has a history of having sustained recent fracture to her left hip and left arm. She was at [facility] on the [facility] for subacute rehab.several of her penitentiary medications included tramadol, Avelox, and Celexa. All of these medications could possibly cause risk of seizure. We have recommended the patient to undergo further evaluation to rule out possible syncope versus seizure episode to explain her fall. We will obtain routine EEG. Recommend cardiology consultation for further evaluation of her ischemic cardiomyopathy and AICD pacemaker placement. We will continue close neurological follow-up for this patient during this admission. Her overall prognosis at this time remains guarded. Case was discussed at length today with the patient's and children at bedside. All of their questions were answered. They are aware of her guarded condition. Time with Patient: Greater than 30
[2017-06-20 14:17] VITALS: BMI 25.9
--- NOTE | 2017-06-20 14:30 | US ---
EXAMINATION TYPE: US carotid duplex BILAT DATE OF EXAM: 06/20/2017 COMPARISON: US 2011 CLINICAL HISTORY: syncope. Syncope, altered mental status, exam done portable. EXAM MEASUREMENTS: RIGHT: Peak Systolic Velocity (PSV) cm/sec ----- Right CCA: 55.5 ----- Right ICA: 95.2 ----- Right ECA: 69.9 ICA/CCA ratio: 1.7 RIGHT: End Diastole cm/sec ----- Right CCA: 14.5 ----- Right ICA: 24.8 ----- Right ECA: 13.8 LEFT: Peak Systolic Velocity (PSV) cm/sec ----- Left CCA: 84.2 ----- Left ICA: 95.5 ----- Left ECA: 95.8 ICA/CCA ratio: 1.1 LEFT: End Diastole cm/sec ----- Left CCA: 18.2 ----- Left ICA: 34.9 ----- Left ECA: 11.4 VERTEBRALS (direction of flow): Right Vertebral: Antegrade Left Vertebral: Antegrade Rhythm: Normal Bilateral intimal thickening, plaque bilateral bulb, no elevated velocities, no significant stenosis. IMPRESSION: Moderate grayscale plaquing at the bulbs with no hemodynamically significant stenosis within either carotid arterial system.
[2017-06-20 16:34] LABS: Glucose,Whole Blood 112 mg/dL (75-99)
[2017-06-20] MEDS: INSULIN ASPART 100 UNIT/ML 1 ML 10 ML VIAL SQ SCH ×2 (17:08→21:11)
[2017-06-20] MEDS: CARVEDILOL 6.25 MG TAB PO SCH (20:49)
[2017-06-20] MEDS: POTASSIUM CHLORIDE ER 20 MEQ TAB.ER PO SCH (20:49)
[2017-06-20] MEDS: CITALOPRAM HYDROBROMIDE 20 MG TAB PO SCH (20:49)
[2017-06-20] MEDS: SENNOSIDES-DOCUSATE SODIUM 1 EACH TAB PO SCH (20:50)
[2017-06-20 21:10] LABS: Glucose,Whole Blood 103 mg/dL (75-99)
[2017-06-20 22:37] LABS: Hemoglobin A1C 4.9 % (4.0-6.0)
[2017-06-21 02:30] LABS: Glucose,Whole Blood 103 mg/dL (75-99)
[2017-06-21 06:32] LABS: Glucose,Whole Blood 110 mg/dL (75-99)
[2017-06-21] MEDS: INSULIN ASPART 100 UNIT/ML 1 ML 10 ML VIAL SQ SCH ×4 (06:33→21:49)
[2017-06-21] MEDS ORDERED: LEVOFLOXACIN 750 MG TAB PO SCH (09:00)
[2017-06-21] MEDS ORDERED: SPIRONOLACTONE 25 MG TAB PO SCH (09:00)
--- NOTE | 2017-06-21 09:59 | P.CRDCN ---
History of Present Illness Consult date: 06/21/17 Requesting physician: Ursula Mccullough Consult reason: sycope Chief complaint: Syncope and fall History of present illness: 6 is a 71-year-old female who follows with Dr. Yee at [facility] for her cardiac needs. She has history of paroxysmal atrial fibrillation, coronary artery disease with subsequent bypass grafting, ischemic cardio myopathy with prior AICD, PAD with prior carotid endarterectomy hypertension, hyperlipidemia, prior history of smoking, anxiety, recent hospitalization earlier this month after experiencing a fall with subsequent pelvic fracture and radial head fracture. She is currently at rehab at [facility] , she apparently was found on the floor after experiencing a fall. According to the patient, she didn't lose consciousness, she states she's also been significantly dizzy for an extended period of time. Cardiology consultation was requested for syncope. EKG on arrival here showed normal sinus rhythm with ST-T wave changes in the inferior lateral leads. QTC 459. CAT scan of the head and spine revealed stable cerebral atrophy without any acute intracranial process. Chest x-ray stable. Pelvis x-ray revealed displaced fractures involving the left superior and inferior pubic gram IV. Mildly displaced fracture involving the right symphysis pubis. Abdominal ultrasound did not reveal any acute abnormality. CAT scan of the abdomen and pelvis revealed fractures of the superior, inferior pubic rami bilaterally. Hepatomegaly, stable cystic disease in the left kidney. Carotid duplex study does not reveal any hemodynamically significant stenosis. Blood pressure 125/70 with a heart rate in the 70s. White blood cell count 14.7, hemoglobin 12.1, platelet count 465. Sodium 1:30, BUN 32, creatinine 0.9. Troponin 0.012. TSH 4.0. At the time of my examination this morning, patient denies any chest discomfort, no dizziness or lightheadedness, no palpitations. She is complaining of significant pain at the right pelvis area. Past Medical History Past Medical History: Atrial Fibrillation, Coronary Artery Disease (CAD), Cancer , GERD/Reflux, Pneumonia Additional Past Medical History / Comment(s): melanoma cancer of the nose with removal, OCC PSORIASIS/DRY SKIN, NOW MILD ON BOTTOM FEET.SLIGHT STRESS INCONTINENCE @ TIMES, cardiomyopathy,gout History of Any Multi-Drug Resistant Organisms: ESBL Date of last positivie culture/infection: 06/27/16 ESBL-E.coli MDRO Source:: Urine Past Surgical History: Appendectomy, Hysterectomy Additional Past Surgical History / Comment(s): LT CAROTID ENDARTERECTOMY,AICD- [facility] IN [place] 10/02/14 TO CHECK AICD Past Anesthesia/Blood Transfusion Reactions: Motion Sickness Type of Cardiac Device: Permanent Pacemaker, AICD Device Placement Date:: 2011 Past Psychological History: Anxiety Smoking Status: Former smoker Past Alcohol Use History: None Reported Additional Past Alcohol Use History / Comment(s): Patient started smoking at age 19 and quit in 1999 for a half a pack per day. No alcohol or illicit drug use. Patient is and lives at home with her . Past Drug Use History: None Reported - Past Family History Father Additional Family Medical History / Comment(s): Father from old age. Daughter(s) Additional Family Medical History / Comment(s): Patient has 2 adult children with no major medical problems. Mother Family Medical History: CVA/TIA Additional Family Medical History / Comment(s): Mother from old age. Medications and Allergies Home Medications Medication Instructions Recorded Confirmed Type Citalopram Hydrobromide [CeleXA] 40 mg PO HS@2100 07/16/14 06/20/17 History Potassium Chloride ER [K-Dur 20] 40 meq PO BID 11/20/14 06/20/17 History Ranitidine HCl [Zantac] 150 mg PO BID PRN 06/27/16 06/20/17 History Rivaroxaban [Xarelto] 20 mg PO DAILY 06/27/16 06/20/17 History Carvedilol [Coreg] 6.25 mg PO BID 06/09/17 06/20/17 History Colchicine 0.6 mg PO DAILY PRN 06/09/17 06/20/17 History Spironolactone 100 mg PO DAILY 06/09/17 06/20/17 History ALPRAZolam [Xanax] 2 mg PO HS PRN #30 tablet 06/11/17 06/20/17 Rx Meclizine [Antivert] 12.5 mg PO TID PRN tab 06/11/17 06/20/17 Rx Torsemide [Demadex] 80 mg PO DAILY tab 06/11/17 06/20/17 Rx Magnesium Hydroxide [Milk of 2,400 mg PO DAILY PRN ml 06/14/17 06/20/17 Rx Magnesia Concentrate] Moxifloxacin HCl [Avelox] 400 mg PO DAILY #10 tablet 06/14/17 06/20/17 Rx Cholecalciferol [Vitamin D3] 3,000 unit PO DAILY 06/20/17 06/20/17 History Cyanocobalamin [Vitamin B-12] 500 mcg PO DAILY 06/20/17 06/20/17 History Ondansetron [Zofran] 4 mg PO Q6H PRN 06/20/17 06/20/17 History Sennosides-Docusate Sodium 1 tab PO BID 06/20/17 06/20/17 History [Senokot-S] Allergies Allergy/AdvReac Type Severity Reaction Status Date / Time cephalexin monohydrate Allergy Rash/Hives Verified 06/20/17 08:38 [From Keflex] lisinopril Allergy Rash/Hives Verified 06/20/17 08:38 morphine Allergy Rash/Hives/ Verified 06/20/17 08:38 Sob warfarin [From Coumadin] Allergy Rash/Hives Verified 06/20/17 08:38 codeine AdvReac Nausea & Verified 06/20/17 08:38 Vomiting hydrocodone [From [place]] AdvReac Nausea & Verified 06/20/17 08:38 Vomiting Physical Exam Vitals: Vital Signs Temp Pulse Pulse Resp BP BP Pulse Ox 06/21/17 04:00 98.6 F 70 18 125/70 96 06/21/17 00:00 99.2 F 66 18 120/59 94 L 06/20/17 20:00 99.3 F 76 18 135/75 96 06/20/17 16:00 97.9 F 76 18 132/76 96 06/20/17 13:30 97.4 F L 77 18 146/85 96 06/20/17 12:30 97.8 F 85 16 145/71 94 L 06/20/17 10:30 97.7 F 84 20 121/66 95 Intake and Output 06/20/17 06/21/17 06/21/17 22:59 06:59 14:59 Intake Total 760 240 Balance 760 240 Intake: Intake, IV Titration 640 Amount Sodium Chloride 0.9% 1, 640 000 ml @ 80 mls/hr IV . [id number] [facility] Rx#:[id number] Oral 120 240 Other: Voiding Method Diaper Diaper Incontinent Incontinent # Voids 2 # Bowel Movements 1 1 Weight 69.5 kg PHYSICAL EXAMINATION: 71-year-old female, mild distress, complaining of pain in the right pelvis area HEENT: Head is atraumatic, normocephalic. Pupils equal, round. Neck is supple. There is no elevated jugular venous pressure. HEART EXAMINATION: Heart S1, S2 systolic ejection murmur heard . No murmur or gallop heard. CHEST EXAMINATION: Lungs are clear to auscultation and precussion. No chest wall tenderness is noted on palpation or with deep breathing. ABDOMEN: Soft, nontender. Bowel sounds are heard. No organomegaly noted. EXTREMITIES: 2+ peripheral pulses with no evidence of peripheral edema and no calf tenderness noted. NEUROLOGIC patient is awake, alert and oriented -3. . Results 06/20/17 06:00 06/20/17 06:00 Current Medications Generic Name Dose Route Start Last Admin Trade Name Freq PRN Reason Stop Dose Admin Alprazolam 2 mg 06/20/17 09:26 Xanax PO HS PRN Anxiety Carvedilol 6.25 mg 06/20/17 21:00 06/20/17 20:49 Coreg PO 6.25 mg BID [facility] Administration Cholecalciferol 3,000 unit 06/21/17 09:00 Vitamin D3 PO DAILY [facility] Citalopram Hydrobromide 40 mg 06/20/17 21:00 06/20/17 20:49 Celexa PO 40 mg HS@2100 [facility] Administration Colchicine 0.6 mg 06/20/17 09:26 Colcrys PO DAILY PRN GOUT Cyanocobalamin 500 mcg 06/21/17 09:00 Vitamin B-12 PO DAILY [facility] Famotidine 20 mg 06/20/17 09:26 Pepcid PO BID PRN Heartburn Sodium Chloride 1,000 mls @ 80 mls/hr 06/20/17 09:30 06/20/17 20:50 Saline 0.9% IV 80 mls/hr .[id number] [facility] Administration Insulin Aspart 0 unit 06/20/17 17:30 06/21/17 06:33 Novolog SQ Not Given ACHS [facility] Protocol Magnesium Hydroxide 2,400 mg 06/20/17 09:26 Milk Of Magnesia PO DAILY PRN Constipation Meclizine HCl 12.5 mg 06/20/17 09:26 Antivert PO TID PRN Vertigo Miscellaneous Information 1 each 06/20/17 08:14 Rx Info: Iv Contrast Was Given MISCELLANE 06/22/17 08:14 DAILY PRN Per Protocol Naloxone HCl 0.2 mg 06/20/17 09:24 Narcan IV Q2M PRN Opioid Reversal Potassium Chloride 40 meq 06/20/17 21:00 06/20/17 20:49 K-Dur 20 PO 40 meq BID [facility] Administration Rivaroxaban 20 mg 06/21/17 09:00 Xarelto PO DAILY [facility] Senna/Docusate Sodium 1 each 06/20/17 21:00 06/20/17 20:50 Senokot-S PO 1 each BID [facility] Administration Spironolactone 100 mg 06/21/17 09:00 Aldactone PO DAILY [facility] Torsemide 80 mg 06/21/17 09:00 Demadex PO DAILY [facility] Intake and Output 06/20/17 06/21/17 06/21/17 22:59 06:59 14:59 Intake Total 760 240 Balance 760 240 Intake: Intake, IV Titration 640 Amount Sodium Chloride 0.9% 1, 640 000 ml @ 80 mls/hr IV . [id number] [facility] Rx#:[id number] Oral 120 240 Other: Voiding Method Diaper Diaper Incontinent Incontinent # Voids 2 # Bowel Movements 1 1 Weight 69.5 kg 06/20/17 06:00 06/20/17 06:00 EKG Interpretations (text) EKG shows a normal sinus rhythm with ST-T wave changes in the inferior lateral leads. Assessment and Plan Plan: Assessment and plan #1 syncope with fall. Rule out cardiac causes. EKG shows normal sinus rhythm with inferior lateral ST-T wave changes, similar to prior EKGs. Blood pressure 124/70. No tachycardia or bradycardia arrhythmias noted. Echocardiogram with Doppler study was performed on June 09 which revealed an ejection fraction of 30-35% moderate MR. #2 recent hospitalization following a fall where the patient incurred a pelvis fracture as well as a radial head fracture on the left eye #3 paroxysmal atrial fibrillation #4 coronary artery disease with prior bypass surgery #5 ischemic cardio myopathy with prior AICD #6 PAD with prior carotid stenting Plan We will not repeat an echocardiogram with Doppler study as the patient just recently had one performed earlier this month. We will check orthostatic blood pressure and heart rate every shift. Continue to monitor for any tachycardia or bradycardia arrhythmias. We will also check to see if the patient had her device interrogated this most recent admission, if not we will check the device. Further recommendations to follow. DNP note has been reviewed, I agree with a documented findings and plan of care. Patient was seen and examined.
[2017-06-21] MEDS: CARVEDILOL 6.25 MG TAB PO SCH ×2 (10:26→22:08)
[2017-06-21] MEDS: CHOLECALCIFEROL 1,000 UNIT TAB PO SCH (10:27)
[2017-06-21] MEDS: RIVAROXABAN 10 MG TAB PO SCH (10:27)
[2017-06-21] MEDS: POTASSIUM CHLORIDE ER 20 MEQ TAB.ER PO SCH ×2 (10:27→22:08)
[2017-06-21] MEDS: CYANOCOBALAMIN 500 MCG TAB PO SCH (10:27)
[2017-06-21] MEDS: SENNOSIDES-DOCUSATE SODIUM 1 EACH TAB PO SCH ×2 (10:28→22:08)
[2017-06-21] MEDS: TORSEMIDE 20 MG TAB PO SCH (10:28)
[2017-06-21] MEDS ORDERED: ACETAMINOPHEN TAB 325 MG TAB PO PRN (10:31)
--- NOTE | 2017-06-21 10:34 | P.PN ---
Progress Note - Text This is an addendum to the dictated cardiology consultation. The patient has a known history of severe ischemic cardiomyopathy, post ICD implant who presented was possible syncope although details are not available and since her admission there was no evidence of tachycardia. There was no evidence of ventricle tachycardia and her initial EKG showed no acute changes. There was a question of orthostatic changes although the patient continues to be somewhat confused and not clear about a history. From the emergency room notes there is no clear documentations of syncope. The etiology of her fall could be related to orthostatic hypotension, the possibility of ventricle tachycardia cannot be excluded although there is no clear evidence to suggest that and I will obtain an evaluation of her ICD. I would add the low dose of losartan, decrease the dose of her Aldactone, check her blood pressure sitting and supine and depending on her results further recommendations will be made. Thank you for this consult we will follow with you
[2017-06-21 11:03] LABS: HCT 36.5 % (34.0-46.0); HGB 11.4 gm/dL (11.4-16.0); Hypochromasia Moderate; MCH 30.9 pg (25.0-35.0); MCHC 31.3 g/dL (31.0-37.0); MCV 98.8 fL (80.0-100.0); Macrocytosis Slight; Mean Platelet Volume 7.4; Platelet Count 422 k/uL (150-450); RBC 3.69 m/uL (3.80-5.40); RDW 15.3 % (11.5-15.5); WBC 11.1 k/uL (3.8-10.6)
[2017-06-21 11:11] LABS: ALT 30 U/L (9-52); AST 29 U/L (14-36); Albumin 3.1 g/dL (3.5-5.0); Alkaline Phosphatase 141 U/L (38-126); Anion Gap 10 mmol/L; Blood Urea Nitrogen 15 mg/dL (7-17); Calcium 8.7 mg/dL (8.4-10.2); Carbon Dioxide 17 mmol/L (22-30); Chloride 106 mmol/L (98-107); Glucose 99 mg/dL (74-99); Potassium 4.8 mmol/L (3.5-5.1); Sodium 133 mmol/L (137-145); Total Protein 5.9 g/dL (6.3-8.2)
[2017-06-21 11:33] LABS: Glucose,Whole Blood 107 mg/dL (75-99)
[2017-06-21] MEDS: ASPIRIN 81 MG PO SCH (12:20)
[2017-06-21] MEDS: LOSARTAN 25 MG TAB PO SCH (12:20)
[2017-06-21] MEDS: SPIRONOLACTONE 25 MG TAB PO SCH (12:21)
--- NOTE | 2017-06-21 14:21 | P.PN ---
Subjective Progress Note Date: 06/21/17 This is a 71-year-old female. Her primary care physician is Dr. Basil Crowell. She has a past medical history of hypotension, gastroesophageal reflux disease, coronary artery disease, carotid stenosis and ischemic cardiomyopathy status post AICD, gout, anxiety and depression. She was recently hospitalized on June 08 following a fall secondary to dizziness with orthostatic changes ruled out. She ended up having a left radial fracture and left pelvic fracture. She was seen by orthopedics and they recommended splint and sling to the left arm and toe-touch weightbearing on the left lower extremity with follow-up with Dr. Montero 2 weeks. Patient was discharged here to [facility] for subacute rehab. She was discharged on tramadol as well as Avelox for early pneumonia and UTI. Patient was apparently found on the floor by her nurse this morning and was confused. Her states she was confused yesterday and he left there at 7 PM he also states she has had some twitching movements. Patient has a long-standing history of cholecystitis but surgery was not recommended due to her heart condition. Patient states that she was sitting in a chair or wheelchair and passed out but this is not confirmed. Patient is able to answer to person and place and time but is otherwise noted to be confused. CAT scan of the head revealed stable cerebral atrophy without acute intracranial process. Chest x-ray shows stable cardiomegaly. Slight improved aeration of the left lung base noted. Pelvis x- ray shows displaced fractures involving the left superior and inferior pubic rami. A mildly displaced fracture involving the right symphysis pubis suggested. Patient also was found to have elevated liver function tests with total bilirubin 2.2, AST 86 and alkaline phosphatase 156. Urinalysis was clear with nitrate and leukoesterase negative. CAT scan of the abdomen and pelvis revealed fractures of the superior inferior pubic rami bilaterally, cardiomegaly , partially eventration of the right hemidiaphragm, hepatomegaly, stable cystic disease in the left kidney. Minimal uncomplicated diverticulosis of the sigmoid colon. Patient was given a dose of Zosyn and admitted to the selective care unit for syncope and possible seizure activity and consult requested with neurology, EEG and carotid ultrasound ordered, tramadol, Avelox and Zofran discontinued. 06/21: Carotid study shows moderate plaquing with no hemodynamically significant stenosis. Patient has been seen by Dr. Tejeda with recommendations for EEG. Patient has been seen by cardiology and evaluation are ICD will be done with concern that patient's symptoms are related to orthostatic hypotension. Also low-dose losartan was added and Aldactone decreased. Patient's mental status is improved today from yesterday. EEG is pending. Nursing to obtain and applied patient's splint and arm sling for the left radial fracture. Objective - Vital Signs Vital signs: Vital Signs Temp 98.8 F 06/21/17 10:15 Pulse 46 L 06/21/17 10:15 Resp 18 06/21/17 10:15 BP 149/87 06/21/17 10:15 Pulse Ox 92 L 06/21/17 10:15 Intake & Output 06/20/17 06/21/17 06/21/17 18:59 06:59 18:59 Intake Total 120 640 240 Balance 120 640 240 Weight 70.76 kg 69.5 kg Intake: Intake, IV Titration 640 Amount Sodium Chloride 0.9% 1, 640 000 ml @ 80 mls/hr IV . [id number] [facility] Rx#:[id number] Oral 120 240 Other: Voiding Method Diaper Diaper Incontinent Incontinent # Voids 2 # Bowel Movements 1 1 - Exam Gen: This is a 71-year-old female. She is seen in bed and appears to be comfortable. HEENT: Head is atraumatic, normocephalic. Pupils equal, round. Sclerae is anicteric. NECK: Supple. No JVD. No lymphadenopathy. No thyromegaly. LUNGS: Clear to auscultation. No wheezes or rhonchi. No intercostal retractions. HEART: Regular rate and rhythm. No murmur. ABDOMEN: Soft. Bowel sounds are present. No masses. No tenderness. EXTREMITIES: No pedal edema. No calf tenderness. Tenderness to the left groin. NEUROLOGICAL: Patient is awake, alert and oriented x3. Cranial nerves 2 through 12 are grossly intact - Labs CBC & Chem 7: 06/21/17 10:42 06/21/17 10:42 Labs: Abnormal Lab Results - Last 24 Hours (Table) 06/20/17 06/20/17 06/20/17 Range/Units 13:29 16:20 21:08 WBC (3.8-10.6) k/uL RBC (3.80-5.40) m/uL Sodium (137-145) mmol/L Carbon Dioxide (22-30) mmol/L POC Glucose (mg/dL) 123 H 112 H 103 H (75-99) mg/dL Alkaline Phosphatase (38-126) U/L Total Protein (6.3-8.2) g/dL Albumin (3.5-5.0) g/dL 06/21/17 06/21/17 06/21/17 Range/Units 02:20 06:02 10:42 WBC 11.1 H (3.8-10.6) k/uL RBC 3.69 L (3.80-5.40) m/uL Sodium (137-145) mmol/L Carbon Dioxide (22-30) mmol/L POC Glucose (mg/dL) 103 H 110 H (75-99) mg/dL Alkaline Phosphatase (38-126) U/L Total Protein (6.3-8.2) g/dL Albumin (3.5-5.0) g/dL 06/21/17 Range/Units 10:42 WBC (3.8-10.6) k/uL RBC (3.80-5.40) m/uL Sodium 133 L (137-145) mmol/L Carbon Dioxide 17 L (22-30) mmol/L POC Glucose (mg/dL) (75-99) mg/dL Alkaline Phosphatase 141 H (38-126) U/L Total Protein 5.9 L (6.3-8.2) g/dL Albumin 3.1 L (3.5-5.0) g/dL Assessment and Plan Plan: 1. Syncopal episode secondary to possible QT prolongation secondary to use of Celexa, Avelox and Zofran, possible arrhythmia, possible orthostatic changes. Celexa, Avelox and Zofran have been discontinued. Cardiology consult. Neurology consult 2. Metabolic encephalopathy rule out seizure related to use of tramadol which reduces seizure threshold. Tramadol Avelox and Zofran all discontinued. EEG and carotid ultrasound ordered. Neurology consult with Dr. Tejeda. 3. Admission on June 08 status post fall on stairs causing left radial fracture and left pelvic fracture. Patient was seen by Dr. James at that time with recommendations: Keep splint clean, dry, and intact until follow up with Dr. James, Paco for comfort, toe-touch on the left side, Follow up with Dr. James in 2 weeks. 4. Ischemic cardiomyopathy status post AICD placement. 5. Paroxysmal atrial fibrillation. Continue Xarelto. 6. CAD with prior carotid stenting. 7. Gastrointestinal prophylaxis. Continue Pepcid 8. DVT prophylaxis. Continue Xarelto. Patient will be admitted to the hospital for a minimum of 2 night stay. Discharge plan: Return to [facility] tomorrow. Impression and plan of care have been directed as dictated by the signing physician. Nancy Olivera nurse practitioner acting as scribe for signing physician.
[2017-06-21 16:37] LABS: Glucose,Whole Blood 101 mg/dL (75-99)
--- NOTE | 2017-06-21 18:26 | P.PN ---
Subjective Progress Note Date: 06/21/17 This patient is a 71-year-old female who was recently admitted to Hospital from [facility] on the [facility] after she sustained a fall there. She was brought into the ER and subsequent admitted to the hospital. She has a history of carotid stenosis and ischemic cardiomyopathy and is status post AICD placement. Patient has been seen by cardiology and her AICD is to be interrogated. Her recent episodes suggest possibility of cardiogenic syncope versus orthostasis. She is being checked for orthostatic hypotension. We did recommend a EEG to be done however this was not completed today for further evaluation of possible seizure disorder causing her to fall out. Patient is much more awake and alert today. She does have evidence of a mild metabolic encephalopathy which is slowly improving. She is being treated for underlying paroxysmal atrial fibrillation and is currently on Xarelto. As noted computed tomography scan of the brain failed to reveal any acute stroke or hemorrhage. We will await further recommendations from cardiology. Several of her medications were discontinued as there was concern for possibility of an increase risk or chance of seizure. Hopefully her EEG will be done tomorrow and this will be reviewed. Her overall prognosis at this time remains guarded. Objective - Vital Signs Vital signs: Vital Signs Temp 99.3 F 06/21/17 15:40 Pulse 53 L 06/21/17 15:40 Resp 18 06/21/17 15:40 BP 114/53 06/21/17 15:40 Pulse Ox 95 06/21/17 15:40 Intake & Output 06/20/17 06/21/17 06/21/17 18:59 06:59 18:59 Intake Total 120 640 240 Output Total 1003 Balance 120 640 -763 Weight 70.76 kg 69.5 kg Intake: Intake, IV Titration 640 Amount Sodium Chloride 0.9% 1, 640 000 ml @ 80 mls/hr IV . [id number] [facility] Rx#:[id number] Oral 120 240 Output: Urine 1000 Stool 3 Other: Voiding Method Diaper Diaper Incontinent Incontinent # Voids 2 2 # Bowel Movements 1 1 - Exam Physical examination: PHYSICAL EXAMINATION: Patient is resting comfortably in bed. VITAL SIGNS: Blood pressure is [114/53]. Heart rate is [53]. Respiration is [18] . Temperature is [99.3]. HEENT: Head is atraumatic, neck is supple, there were no carotid bruits. CHEST: Lungs are clear to auscultation and percussion. CARDIAC: S1, S2 normal rate and rhythm. There is no murmur. ABDOMEN: Soft and nontender. Bowel sounds are present. EXTREMITIES: There is no pedal edema. Peripheral pulses are present. Neurological examination: Patient has a nonfocal neurological examination. Her mental status shows improvement from yesterday. She is more awake and alert. She is following simple commands. - Labs CBC & Chem 7: 06/21/17 10:42 06/21/17 10:42 Labs: Abnormal Lab Results - Last 24 Hours (Table) 06/20/17 06/21/17 06/21/17 Range/Units 21:08 02:20 06:02 WBC (3.8-10.6) k/uL RBC (3.80-5.40) m/uL Sodium (137-145) mmol/L Carbon Dioxide (22-30) mmol/L POC Glucose (mg/dL) 103 H 103 H 110 H (75-99) mg/dL Alkaline Phosphatase (38-126) U/L Total Protein (6.3-8.2) g/dL Albumin (3.5-5.0) g/dL 06/21/17 06/21/17 06/21/17 Range/Units 10:42 10:42 11:30 WBC 11.1 H (3.8-10.6) k/uL RBC 3.69 L (3.80-5.40) m/uL Sodium 133 L (137-145) mmol/L Carbon Dioxide 17 L (22-30) mmol/L POC Glucose (mg/dL) 107 H (75-99) mg/dL Alkaline Phosphatase 141 H (38-126) U/L Total Protein 5.9 L (6.3-8.2) g/dL Albumin 3.1 L (3.5-5.0) g/dL 06/21/17 Range/Units 16:35 WBC (3.8-10.6) k/uL RBC (3.80-5.40) m/uL Sodium (137-145) mmol/L Carbon Dioxide (22-30) mmol/L POC Glucose (mg/dL) 101 H (75-99) mg/dL Alkaline Phosphatase (38-126) U/L Total Protein (6.3-8.2) g/dL Albumin (3.5-5.0) g/dL Assessment and Plan (1) Acute encephalopathy Current Visit: Yes Status: Acute Code(s): G93.40 - ENCEPHALOPATHY, UNSPECIFIED SNOMED Code(s): 3396961 (2) Ischemic cardiomyopathy Current Visit: Yes Status: Acute Code(s): I25.5 - ISCHEMIC CARDIOMYOPATHY SNOMED Code(s): 874084942 (3) History of implantable cardioverter-defibrillator (ICD) placement Current Visit: Yes Status: Acute Code(s): Z95.810 - PRESENCE OF AUTOMATIC ( IMPLANTABLE) CARDIAC DEFIBRILLATOR SNOMED Code(s): 999712735 (4) Atrial fibrillation Current Visit: Yes Status: Acute Code(s): I48.91 - UNSPECIFIED ATRIAL FIBRILLATION SNOMED Code(s): 26395716 (5) Acute delirium Current Visit: Yes Status: Acute Code(s): R41.0 - DISORIENTATION, UNSPECIFIED SNOMED Code(s): 9085529 (6) Fracture of pubic ramus Current Visit: No Status: Acute Code(s): S32.599A - OTH FRACTURE OF UNSP PUBIS, INIT ENCNTR FOR CLOSED FRACTURE SNOMED Code(s): 85424943 (7) Left radial head fracture Current Visit: No Status: Acute Code(s): S52.122A - DISP FX OF HEAD OF LEFT RADIUS, INIT FOR CLOS FX SNOMED Code(s): 006028686 Plan: This patient is a 71-year-old female being evaluated for recent syncopal episode and/or seizure. She does have a history of severe cardiomyopathy and AICD placement. She is being seen by cardiology for further evaluation of cardiac arrhythmia and interrogation of her AICD device. She has been doing better in terms of her mental status today and is more awake and alert. She does have findings of a mild encephalopathy. EEG was not completed today and we will need to see if this can be performed and completed tomorrow for review. She has had no further syncopal episodes and/or seizures since admission. We will continue to monitor her progress rate closely. Her overall prognosis at this time remains guarded.
[2017-06-21 20:37] LABS: Glucose,Whole Blood 104 mg/dL (75-99)
[2017-06-21] MEDS: CITALOPRAM HYDROBROMIDE 20 MG TAB PO SCH (22:08)
[2017-06-22 01:41] LABS: Glucose,Whole Blood 139 mg/dL (75-99)
[2017-06-22 05:58] LABS: Glucose,Whole Blood 122 mg/dL (75-99)
[2017-06-22 06:17] LABS: HCT 39.8 % (34.0-46.0); HGB 12.4 gm/dL (11.4-16.0); Hypochromasia Slight; MCH 30.2 pg (25.0-35.0); MCHC 31.1 g/dL (31.0-37.0); MCV 97.1 fL (80.0-100.0); Macrocytosis Slight; Mean Platelet Volume 7.6; Platelet Count 522 k/uL (150-450); RDW 15.8 % (11.5-15.5); WBC 12.9 k/uL (3.8-10.6)
[2017-06-22] MEDS: INSULIN ASPART 100 UNIT/ML 1 ML 10 ML VIAL SQ SCH ×4 (06:26→21:57)
[2017-06-22 06:37] LABS: ALT 33 U/L (9-52); AST 24 U/L (14-36); Albumin 3.5 g/dL (3.5-5.0); Alkaline Phosphatase 181 U/L (38-126); Anion Gap 10 mmol/L; Blood Urea Nitrogen 17 mg/dL (7-17); Calcium 9.3 mg/dL (8.4-10.2); Carbon Dioxide 19 mmol/L (22-30); Chloride 101 mmol/L (98-107); Glucose 122 mg/dL (74-99); Potassium 4.9 mmol/L (3.5-5.1); Sodium 130 mmol/L (137-145); Total Bilirubin 0.8 mg/dL (0.2-1.3); Total Protein 6.4 g/dL (6.3-8.2)
[2017-06-22] MEDS: CARVEDILOL 6.25 MG TAB PO SCH ×2 (12:00→21:23)
[2017-06-22] MEDS: CHOLECALCIFEROL 1,000 UNIT TAB PO SCH (12:00)
[2017-06-22] MEDS: ASPIRIN 81 MG PO SCH (12:00)
[2017-06-22] MEDS: POTASSIUM CHLORIDE ER 20 MEQ TAB.ER PO SCH ×2 (12:01→21:22)
[2017-06-22] MEDS: RIVAROXABAN 10 MG TAB PO SCH (12:01)
[2017-06-22] MEDS: CYANOCOBALAMIN 500 MCG TAB PO SCH (12:01)
[2017-06-22] MEDS: SPIRONOLACTONE 25 MG TAB PO SCH (12:02)
[2017-06-22] MEDS: SENNOSIDES-DOCUSATE SODIUM 1 EACH TAB PO SCH ×2 (12:02→21:22)
[2017-06-22] MEDS: LOSARTAN 25 MG TAB PO SCH (12:03)
[2017-06-22] MEDS: TORSEMIDE 20 MG TAB PO SCH (12:03)
[2017-06-22 12:16] LABS: Glucose,Whole Blood 127 mg/dL (75-99)
--- NOTE | 2017-06-22 13:00 | P.PN ---
Subjective Progress Note Date: 06/22/17 This is a 71-year-old female. Her primary care physician is Dr. Basil Crowell. She has a past medical history of hypotension, gastroesophageal reflux disease, coronary artery disease, carotid stenosis and ischemic cardiomyopathy status post AICD, gout, anxiety and depression. She was recently hospitalized on June 08 following a fall secondary to dizziness with orthostatic changes ruled out. She ended up having a left radial fracture and left pelvic fracture. She was seen by orthopedics and they recommended splint and sling to the left arm and toe-touch weightbearing on the left lower extremity with follow-up with Dr. Monetro 2 weeks. Patient was discharged here to [facility] for subacute rehab. She was discharged on tramadol as well as Avelox for early pneumonia and UTI. Patient was apparently found on the floor by her nurse this morning and was confused. Her states she was confused yesterday and he left there at 7 PM he also states she has had some twitching movements. Patient has a long-standing history of cholecystitis but surgery was not recommended due to her heart condition. Patient states that she was sitting in a chair or wheelchair and passed out but this is not confirmed. Patient is able to answer to person and place and time but is otherwise noted to be confused. CAT scan of the head revealed stable cerebral atrophy without acute intracranial process. Chest x-ray shows stable cardiomegaly. Slight improved aeration of the left lung base noted. Pelvis x- ray shows displaced fractures involving the left superior and inferior pubic rami. A mildly displaced fracture involving the right symphysis pubis suggested. Patient also was found to have elevated liver function tests with total bilirubin 2.2, AST 86 and alkaline phosphatase 156. Urinalysis was clear with nitrate and leukoesterase negative. CAT scan of the abdomen and pelvis revealed fractures of the superior inferior pubic rami bilaterally, cardiomegaly , partially eventration of the right hemidiaphragm, hepatomegaly, stable cystic disease in the left kidney. Minimal uncomplicated diverticulosis of the sigmoid colon. Patient was given a dose of Zosyn and admitted to the selective care unit for syncope and possible seizure activity and consult requested with neurology, EEG and carotid ultrasound ordered, tramadol, Avelox and Zofran discontinued. 06/21: Carotid study shows moderate plaquing with no hemodynamically significant stenosis. Patient has been seen by Dr. Tejeda with recommendations for EEG. Patient has been seen by cardiology and evaluation are ICD will be done with concern that patient's symptoms are related to orthostatic hypotension. Also low-dose losartan was added and Aldactone decreased. Patient's mental status is improved today from yesterday. EEG is pending. Nursing to obtain and applied patient's splint and arm sling for the left radial fracture. 06/22: Patient had EEG done this morning but this has not been read. ICD interrogation is scheduled. Consult added for Dr. James regarding the bilateral pelvic fracture. On last admission, patient had only left-sided. Patient continues to have some mild confusion but is more alert. Plan for discharge to [facility] tomorrow Objective - Vital Signs Vital signs: Vital Signs Temp 98.5 F 06/22/17 12:00 Pulse 50 L 06/22/17 12:00 Resp 18 06/22/17 12:00 BP 127/69 06/22/17 12:00 Pulse Ox 98 06/22/17 12:00 Intake & Output 06/21/17 06/22/17 06/22/17 18:59 06:59 18:59 Intake Total 462 0 0 Output Total 1003 450 1 Balance -541 -450 -1 Weight 70 kg Intake: Intake, IV Titration 0 Amount Sodium Chloride 0.9% 1, 0 000 ml @ 80 mls/hr IV . [id number] [facility] Rx#:[id number] Oral 462 0 Output: Urine 1000 450 Stool 3 1 Other: Voiding Method Diaper Diaper Diaper Incontinent Incontinent Incontinent # Voids 2 # Bowel Movements 1 1 - Exam Gen: This is a 71-year-old female. She is seen in bed and appears to be comfortable. HEENT: Head is atraumatic, normocephalic. Pupils equal, round. Sclerae is anicteric. NECK: Supple. No JVD. No lymphadenopathy. No thyromegaly. LUNGS: Clear to auscultation. No wheezes or rhonchi. No intercostal retractions. HEART: Regular rate and rhythm. No murmur. ABDOMEN: Soft. Bowel sounds are present. No masses. No tenderness. EXTREMITIES: No pedal edema. No calf tenderness. Tenderness to the left groin. NEUROLOGICAL: Patient is awake, alert and oriented x3 with mild confusion. Cranial nerves 2 through 12 are grossly intact - Labs CBC & Chem 7: 06/22/17 05:53 06/22/17 05:53 Labs: Abnormal Lab Results - Last 24 Hours (Table) 06/21/17 06/21/17 06/22/17 Range/Units 16:35 20:34 01:39 WBC (3.8-10.6) k/uL RDW (11.5-15.5) % Plt Count (150-450) k/uL Sodium (137-145) mmol/L Carbon Dioxide (22-30) mmol/L Glucose (74-99) mg/dL POC Glucose (mg/dL) 101 H 104 H 139 H (75-99) mg/dL Alkaline Phosphatase (38-126) U/L 06/22/17 06/22/17 06/22/17 Range/Units 05:53 05:53 05:56 WBC 12.9 H (3.8-10.6) k/uL RDW 15.8 H (11.5-15.5) % Plt Count 522 H (150-450) k/uL Sodium 130 L (137-145) mmol/L Carbon Dioxide 19 L (22-30) mmol/L Glucose 122 H (74-99) mg/dL POC Glucose (mg/dL) 122 H (75-99) mg/dL Alkaline Phosphatase 181 H (38-126) U/L 06/22/17 Range/Units 12:05 WBC (3.8-10.6) k/uL RDW (11.5-15.5) % Plt Count (150-450) k/uL Sodium (137-145) mmol/L Carbon Dioxide (22-30) mmol/L Glucose (74-99) mg/dL POC Glucose (mg/dL) 127 H (75-99) mg/dL Alkaline Phosphatase (38-126) U/L Assessment and Plan Plan: 1. Syncopal episode secondary to possible QT prolongation secondary to use of Celexa, Avelox and Zofran, rule out arrhythmia, rule out orthostatic hypotension. Celexa, Avelox and Zofran have been discontinued. Cardiology consult. 2. Metabolic encephalopathy rule out seizure related to use of tramadol which reduces seizure threshold. Tramadol Avelox and Zofran all discontinued. EEG and carotid ultrasound ordered. Neurology consult with Dr. Tejeda. 3. Admission on June 08 status post fall on stairs causing left radial fracture and left pelvic fracture, possible new right sided pelvic fracture. Patient was seen by Dr. James at that time with recommendations: Keep splint clean, dry, and intact until follow up with Dr. James, Sling for comfort, toe- touch on the left side, Follow up with Dr. James in 2 weeks. Consult with orthopedics to reassess. 4. Ischemic cardiomyopathy status post AICD placement. Continue Coreg, Cozaar , Aldactone, Demadex. 5. History of carotid stenosis. Continue Xarelto. 6. Gastrointestinal prophylaxis. Continue Pepcid 7. DVT prophylaxis. Continue Xarelto. Discharge plan: Return to [facility] on Wednesday. Impression and plan of care have been directed as dictated by the signing physician. Nancy Olivera nurse practitioner acting as scribe for signing physician.
--- NOTE | 2017-06-22 15:33 | P.PN ---
Subjective Progress Note Date: 06/22/17 This is a 71-year-old female who follows with Dr. Yee at [facility] for her cardiac needs. She has history of paroxysmal atrial fibrillation, coronary artery disease with subsequent bypass grafting, ischemic cardio myopathy with prior AICD, PAD with prior carotid endarterectomy hypertension, hyperlipidemia, prior history of smoking, anxiety, recent hospitalization earlier this month after experiencing a fall with subsequent pelvic fracture and radial head fracture. She is currently at rehab at [facility] , she apparently was found on the floor after experiencing a fall. According to the patient, she didn't lose consciousness, she states she's also been significantly dizzy for an extended period of time. Cardiology consultation was requested for syncope. EKG on arrival here showed normal sinus rhythm with ST-T wave changes in the inferior lateral leads. QTC 459. CAT scan of the head and spine revealed stable cerebral atrophy without any acute intracranial process. Chest x-ray stable. Pelvis x-ray revealed displaced fractures involving the left superior and inferior pubic gram IV. Mildly displaced fracture involving the right symphysis pubis. Abdominal ultrasound did not reveal any acute abnormality. CAT scan of the abdomen and pelvis revealed fractures of the superior, inferior pubic rami bilaterally. Hepatomegaly, stable cystic disease in the left kidney. Carotid duplex study does not reveal any hemodynamically significant stenosis. Blood pressure 125/70 with a heart rate in the 70s. White blood cell count 14.7, hemoglobin 12.1, platelet count 465. Sodium 130, BUN 32, creatinine 0.9. Troponin 0.012. TSH 4.0. At the time of my examination this morning, patient denies any chest discomfort, no dizziness or lightheadedness, no palpitations. She is complaining of significant pain at the right pelvis area. 06/22/2017 Patient seen and examined this morning, sitting up in the chair at bedside. Quite confused today overall. Orthostatics were checked which came back to be negative. No arrhythmias have been noted on the monitor, [facility] Objective - Vital Signs Vital signs: Vital Signs Temp 98.5 F 06/22/17 12:00 Pulse 50 L 06/22/17 12:00 Resp 18 06/22/17 12:00 BP 127/69 06/22/17 12:00 Pulse Ox 98 06/22/17 12:00 Intake & Output 06/21/17 06/22/17 06/22/17 18:59 06:59 18:59 Intake Total 462 0 0 Output Total 1003 450 1 Balance -541 -450 -1 Weight 70 kg Intake: Intake, IV Titration 0 Amount Sodium Chloride 0.9% 1, 0 000 ml @ 80 mls/hr IV . [id number] [facility] Rx#:[id number] Oral 462 0 Output: Urine 1000 450 Stool 3 1 Other: Voiding Method Diaper Diaper Diaper Incontinent Incontinent Incontinent # Voids 2 # Bowel Movements 1 1 - Exam PHYSICAL EXAMINATION: 71-year-old female, mild distress, complaining of pain in the right pelvis area HEENT: Head is atraumatic, normocephalic. Pupils equal, round. Neck is supple. There is no elevated jugular venous pressure. HEART EXAMINATION: Heart S1, S2 systolic ejection murmur heard . No murmur or gallop heard. CHEST EXAMINATION: Lungs are clear to auscultation and precussion. No chest wall tenderness is noted on palpation or with deep breathing. ABDOMEN: Soft, nontender. Bowel sounds are heard. No organomegaly noted. EXTREMITIES: 2+ peripheral pulses with no evidence of peripheral edema and no calf tenderness noted. NEUROLOGIC patient is awake, alert and oriented -3. . - Labs CBC & Chem 7: 06/22/17 05:53 06/22/17 05:53 Labs: Abnormal Lab Results - Last 24 Hours (Table) 06/21/17 06/21/17 06/22/17 Range/Units 16:35 20:34 01:39 WBC (3.8-10.6) k/uL RDW (11.5-15.5) % Plt Count (150-450) k/uL Sodium (137-145) mmol/L Carbon Dioxide (22-30) mmol/L Glucose (74-99) mg/dL POC Glucose (mg/dL) 101 H 104 H 139 H (75-99) mg/dL Alkaline Phosphatase (38-126) U/L 06/22/17 06/22/17 06/22/17 Range/Units 05:53 05:53 05:56 WBC 12.9 H (3.8-10.6) k/uL RDW 15.8 H (11.5-15.5) % Plt Count 522 H (150-450) k/uL Sodium 130 L (137-145) mmol/L Carbon Dioxide 19 L (22-30) mmol/L Glucose 122 H (74-99) mg/dL POC Glucose (mg/dL) 122 H (75-99) mg/dL Alkaline Phosphatase 181 H (38-126) U/L 06/22/17 Range/Units 12:05 WBC (3.8-10.6) k/uL RDW (11.5-15.5) % Plt Count (150-450) k/uL Sodium (137-145) mmol/L Carbon Dioxide (22-30) mmol/L Glucose (74-99) mg/dL POC Glucose (mg/dL) 127 H (75-99) mg/dL Alkaline Phosphatase (38-126) U/L Assessment and Plan Plan: Assessment and plan #1 syncope with fall. Rule out cardiac causes. EKG shows normal sinus rhythm with inferior lateral ST-T wave changes, similar to prior EKGs. Blood pressure 124/70. No tachycardia or bradycardia arrhythmias noted. Echocardiogram with Doppler study was performed on June 09 which revealed an ejection fraction of 30-35% moderate MR. #2 recent hospitalization following a fall where the patient incurred a pelvis fracture as well as a radial head fracture on the left eye #3 paroxysmal atrial fibrillation #4 coronary artery disease with prior bypass surgery #5 ischemic cardio myopathy with prior AICD #6 PAD with prior carotid stenting Plan Cardiology's perspective, we will interrogate the patient's AICD, continue current medications. DNP note has been reviewed, I agree with a documented findings and plan of care. Patient was seen and examined.
[2017-06-22 17:04] LABS: Glucose,Whole Blood 121 mg/dL (75-99)
--- NOTE | 2017-06-22 19:15 | EEG ---
ELECTROENCEPHALOGRAM REPORT DATE OF EE06/22/2017 ELECTROENCEPHALOGRAPHIC EXAMINATION REPORT: INDICATION FOR EXAMINATION: This patient is a 71-year-old female being evaluated for encephalopathy and altered mental status. AGE: [age]. EEG FINDINGS: A routine 21-channel awake digital EEG recording was accomplished utilizing the 10-20 international system with bipolar and referential montages. The background activity in the most alert resting state consists of a low to medium amplitude, poorly developed and poorly sustained 6-7 Hz activity over the posterior head region. This posterior rhythm attenuates to eye opening. There is a moderate amount of low amplitude 18-20 Hz beta activity seen in a generalized fashion. Hyperventilation was not performed. Photic stimulation at flash frequencies of 2-30 Hz produced a fair occipital driving response. No epileptiform discharges were seen. IMPRESSION: This EEG is moderately abnormal in a diffuse fashion due to slight slowing of the EEG background. The EEG failed to reveal any focal, lateralized, or epileptiform abnormalities. Clinical correlation is recommended. MMERIC / JESSICAN: [id number] /
--- NOTE | 2017-06-22 19:28 | P.PN ---
Subjective Progress Note Date: 06/22/17 This patient is a 71-year-old female who was recently admitted to [facility] the [facility] after she sustained a fall there. She was brought into the ER and subsequent admitted to the hospital. She has a history of carotid stenosis and ischemic cardiomyopathy and is status post AICD placement. Patient has been seen by cardiology and her AICD is to be interrogated. Her recent episodes suggest possibility of cardiogenic syncope versus orthostasis. She is being checked for orthostatic hypotension. We did recommend a EEG to be done however this was not completed today for further evaluation of possible seizure disorder causing her to fall out. Patient is much more awake and alert today. She does have evidence of a mild metabolic encephalopathy which is slowly improving. She is being treated for underlying paroxysmal atrial fibrillation and is currently on Xarelto. As noted computed tomography scan of the brain failed to reveal any acute stroke or hemorrhage. We will await further recommendations from cardiology. Several of her medications were discontinued as there was concern for possibility of an increase risk or chance of seizure. The patient was able to complete a routine EEG today. We did review the EEG and it is moderately slow with no evidence of any epileptiform discharges. This would be consistent with a mild encephalopathy. We discussed the results of the EEG today with the patient. She is showing slight improvement in her mental status today. She was checked for orthostatic hypotension which did come back negative. She is being followed up by cardiology for interrogation of her AICD. We will continue to monitor her for any further changes in her neurological status. Her overall prognosis at this time remains guarded. Objective - Vital Signs Vital signs: Vital Signs Temp 97.9 F 06/22/17 16:10 Pulse 61 06/22/17 16:10 Resp 18 06/22/17 16:10 BP 131/58 06/22/17 16:10 Pulse Ox 96 06/22/17 16:10 Intake & Output 06/21/17 06/22/17 06/22/17 18:59 06:59 18:59 Intake Total 462 0 0 Output Total 1003 450 1 Balance -541 -450 -1 Weight 70 kg Intake: Intake, IV Titration 0 Amount Sodium Chloride 0.9% 1, 0 000 ml @ 80 mls/hr IV . [id number] [facility] Rx#:[id number] Oral 462 0 Output: Urine 1000 450 Stool 3 1 Other: Voiding Method Diaper Diaper Diaper Incontinent Incontinent Incontinent # Voids 2 3 # Bowel Movements 1 1 - Exam Physical examination: PHYSICAL EXAMINATION: Patient is resting comfortably in bed. VITAL SIGNS: Blood pressure is [131/58]. Heart rate is [61]. Respiration is [18] . Temperature is [97.1]. HEENT: Head is atraumatic, neck is supple, there were no carotid bruits. CHEST: Lungs are clear to auscultation and percussion. CARDIAC: S1, S2 normal rate and rhythm. There is no murmur. ABDOMEN: Soft and nontender. Bowel sounds are present. EXTREMITIES: There is no pedal edema. Peripheral pulses are present. Neurological examination: Patient has a nonfocal neurological examination. Her mental status shows improvement from yesterday. She is more awake and alert. She is following simple commands. - Labs CBC & Chem 7: 06/22/17 05:53 06/22/17 05:53 Labs: Abnormal Lab Results - Last 24 Hours (Table) 06/21/17 06/22/17 06/22/17 Range/Units 20:34 01:39 05:53 WBC 12.9 H (3.8-10.6) k/uL RDW 15.8 H (11.5-15.5) % Plt Count 522 H (150-450) k/uL Sodium (137-145) mmol/L Carbon Dioxide (22-30) mmol/L Glucose (74-99) mg/dL POC Glucose (mg/dL) 104 H 139 H (75-99) mg/dL Alkaline Phosphatase (38-126) U/L 06/22/17 06/22/17 06/22/17 Range/Units 05:53 05:56 12:05 WBC (3.8-10.6) k/uL RDW (11.5-15.5) % Plt Count (150-450) k/uL Sodium 130 L (137-145) mmol/L Carbon Dioxide 19 L (22-30) mmol/L Glucose 122 H (74-99) mg/dL POC Glucose (mg/dL) 122 H 127 H (75-99) mg/dL Alkaline Phosphatase 181 H (38-126) U/L 06/22/17 Range/Units 16:51 WBC (3.8-10.6) k/uL RDW (11.5-15.5) % Plt Count (150-450) k/uL Sodium (137-145) mmol/L Carbon Dioxide (22-30) mmol/L Glucose (74-99) mg/dL POC Glucose (mg/dL) 121 H (75-99) mg/dL Alkaline Phosphatase (38-126) U/L Assessment and Plan (1) Acute encephalopathy Current Visit: Yes Status: Acute Code(s): G93.40 - ENCEPHALOPATHY, UNSPECIFIED SNOMED Code(s): 5724632 (2) Ischemic cardiomyopathy Current Visit: Yes Status: Acute Code(s): I25.5 - ISCHEMIC CARDIOMYOPATHY SNOMED Code(s): 904008843 (3) History of implantable cardioverter-defibrillator (ICD) placement Current Visit: Yes Status: Acute Code(s): Z95.810 - PRESENCE OF AUTOMATIC ( IMPLANTABLE) CARDIAC DEFIBRILLATOR SNOMED Code(s): 012713707 (4) Atrial fibrillation Current Visit: Yes Status: Acute Code(s): I48.91 - UNSPECIFIED ATRIAL FIBRILLATION SNOMED Code(s): 73704446 (5) Acute delirium Current Visit: Yes Status: Acute Code(s): R41.0 - DISORIENTATION, UNSPECIFIED SNOMED Code(s): 9160578 (6) Fracture of pubic ramus Current Visit: No Status: Acute Code(s): S32.599A - OTH FRACTURE OF UNSP PUBIS, INIT ENCNTR FOR CLOSED FRACTURE SNOMED Code(s): 80657384 (7) Left radial head fracture Current Visit: No Status: Acute Code(s): S52.122A - DISP FX OF HEAD OF LEFT RADIUS, INIT FOR CLOS FX SNOMED Code(s): 282287475 Plan: This patient is a 71-year-old female who was admitted from correction after sustaining a episode of unresponsiveness. She underwent a computed tomography scan of the brain which came back negative for any acute changes. She underwent a computed tomography scan of the abdomen and pelvis which revealed fractures of the superior and inferior pubic gram I bilaterally. Orthopedic surgery is to evaluate this. Patient also was able to complete routine EEG today which was reviewed and is moderately slow with no evidence of any epileptiform discharges. Patient has been seen by cardiology and has no evidence of orthostatic hypotension. She has a AICD implantation which is to be interrogated by cardiology. She normally follows at the [facility] for treatment of paroxysmal atrial fibrillation. The patient seems to be doing somewhat better in terms of her mental status today. We reviewed the results of the EEG with her today in detail. She is awaiting possible discharge back to ECF/SNF once she is medically stable. We will continue to follow her progress as needed. Her overall prognosis at this time remains guarded.
[2017-06-22 21:20] VITALS: RESP 16
[2017-06-22] MEDS: CITALOPRAM HYDROBROMIDE 20 MG TAB PO SCH (21:22)
[2017-06-23 05:55] LABS: HCT 40.6 % (34.0-46.0); HGB 13.4 gm/dL (11.4-16.0); MCH 31.4 pg (25.0-35.0); MCHC 32.9 g/dL (31.0-37.0); MCV 95.4 fL (80.0-100.0); Mean Platelet Volume 6.9; Platelet Count 474 k/uL (150-450); RBC 4.26 m/uL (3.80-5.40); RDW 14.5 % (11.5-15.5); WBC 10.9 k/uL (3.8-10.6)
[2017-06-23 06:03] LABS: Albumin 3.7 g/dL (3.5-5.0); Calcium 9.6 mg/dL (8.4-10.2); Potassium 5.2 mmol/L (3.5-5.1); Total Bilirubin 0.7 mg/dL (0.2-1.3); Total Protein 6.7 g/dL (6.3-8.2)
[2017-06-23] MEDS: SENNOSIDES-DOCUSATE SODIUM 1 EACH TAB PO SCH (08:15)
[2017-06-23] MEDS: LOSARTAN 25 MG TAB PO SCH (08:15)
[2017-06-23] MEDS: CARVEDILOL 6.25 MG TAB PO SCH (08:16)
[2017-06-23] MEDS: CHOLECALCIFEROL 1,000 UNIT TAB PO SCH (08:16)
[2017-06-23] MEDS: TORSEMIDE 20 MG TAB PO SCH (08:16)
[2017-06-23] MEDS: SPIRONOLACTONE 25 MG TAB PO SCH (08:16)
[2017-06-23] MEDS: RIVAROXABAN 10 MG TAB PO SCH (08:16)
[2017-06-23] MEDS: POTASSIUM CHLORIDE ER 20 MEQ TAB.ER PO SCH (08:16)
[2017-06-23] MEDS: ASPIRIN 81 MG PO SCH (08:16)
[2017-06-23] MEDS: CYANOCOBALAMIN 500 MCG TAB PO SCH (08:17)
--- NOTE | 2017-06-23 08:37 | P.CNOR ---
History of Present Illness - [facility] Consult date: 06/23/17 Consult reason: fracture History of present illness: The patient is a 71 y/o female that we have been following for a left radial head fracture and left pubic rami fractures. She was transferred to a rehab facility almost 2 weeks ago and has been readmitted. The patient states she does not remember why she is back in the hospital and does not remember falling at rehab. According to the ER note, she was found on the floor at rehab and was confused on 06/20/2017. She was subsequently admitted for further evaluation and testing regarding the altered mental status. X-rays were taken of her pelvis that revealed new pubic rami fractures on the right and displacement of the superior pubic rami fracture on the left. No new x-rays of the elbow have been obtained this admission. Orthopedics was consulted for re- evaluation. Today, the patient states her pain is controlled. She denies fever, chills, rigors, chest pain and shortness of breath today. Review of Systems Constitutional: Denies chills, Denies fever, Denies sweats Cardiovascular: Denies chest pain, Denies shortness of breath Respiratory: Denies cough Gastrointestinal: Denies diarrhea, Denies nausea, Denies vomiting Musculoskeletal: Reports low back pain Musculoskeletal: left: elbow pain, bilateral: hip pain Past Medical History Past Medical History: Atrial Fibrillation, Coronary Artery Disease (CAD), Cancer , GERD/Reflux, Pneumonia Additional Past Medical History / Comment(s): melanoma cancer of the nose with removal, OCC PSORIASIS/DRY SKIN, NOW MILD ON BOTTOM FEET.SLIGHT STRESS INCONTINENCE @ TIMES, cardiomyopathy,gout 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 [place] [facility] [place] 10/02/14 TO CHECK AICD Past Anesthesia/Blood Transfusion Reactions: Motion Sickness Type of Cardiac Device: Permanent Pacemaker, AICD Device Placement Date:: 2011 Past Psychological History: Anxiety Smoking Status: Former smoker Past Alcohol Use History: None Reported Additional Past Alcohol Use History / Comment(s): Patient started smoking at age 19 and quit in 1999 for a half a pack per day. No alcohol or illicit drug use. Patient is and lives at home with her . Past Drug Use History: None Reported - Past Family History Father Additional Family Medical History / Comment(s): Father from old age. Daughter(s) Additional Family Medical History / Comment(s): Patient has 2 adult children with no major medical problems. Mother Family Medical History: CVA/TIA Additional Family Medical History / Comment(s): Mother from old age. Medications and Allergies Home Medications Medication Instructions Recorded Confirmed Type Citalopram Hydrobromide [CeleXA] 40 mg PO HS@2100 07/16/14 06/20/17 History Potassium Chloride ER [K-Dur 20] 40 meq PO BID 11/20/14 06/20/17 History Ranitidine HCl [Zantac] 150 mg PO BID PRN 06/27/16 06/20/17 History Rivaroxaban [Xarelto] 20 mg PO DAILY 06/27/16 06/20/17 History Carvedilol [Coreg] 6.25 mg PO BID 06/09/17 06/20/17 History Colchicine 0.6 mg PO DAILY PRN 06/09/17 06/20/17 History Torsemide [Demadex] 80 mg PO DAILY tab 06/11/17 06/20/17 Rx Magnesium Hydroxide [Milk of 2,400 mg PO DAILY PRN ml 06/14/17 06/20/17 Rx Magnesia Concentrate] Cholecalciferol [Vitamin D3] 3,000 unit PO DAILY 06/20/17 06/20/17 History Cyanocobalamin [Vitamin B-12] 500 mcg PO DAILY 06/20/17 06/20/17 History Ondansetron [Zofran] 4 mg PO Q6H PRN 06/20/17 06/20/17 History Sennosides-Docusate Sodium 1 tab PO BID 06/20/17 06/20/17 History [Senokot-S] ALPRAZolam [Xanax] 0.5 mg PO HS PRN #30 tab 06/22/17 Rx Acetaminophen Tab [Tylenol] 650 mg PO Q6HR PRN tab 06/22/17 Rx Aspirin 81 mg PO DAILY chew 06/22/17 Rx Losartan [Cozaar] 12.5 mg PO DAILY tab 06/22/17 Rx Meclizine [Antivert] 12.5 mg PO BID #0 tab 06/22/17 06/20/17 Rx Spironolactone [Aldactone] 50 mg PO DAILY tab 06/22/17 Rx Allergies Allergy/AdvReac Type Severity Reaction Status Date / Time cephalexin monohydrate Allergy Rash/Hives Verified 06/20/17 08:38 [From Keflex] lisinopril Allergy Rash/Hives Verified 06/20/17 08:38 morphine Allergy Rash/Hives/ Verified 06/20/17 08:38 Sob warfarin [From Coumadin] Allergy Rash/Hives Verified 06/20/17 08:38 codeine AdvReac Nausea & Verified 06/20/17 08:38 Vomiting hydrocodone [From [place]] AdvReac Nausea & Verified 06/20/17 08:38 Vomiting Physical Examination The patient is a 71 y/o female who is no acute distress. She is alert and oriented x2. Exam of the left upper extremity reveals a sling in place. No splint. Minimal pain on palpation to the radial head and upon forearm rotation. Full finger and wrist range of motion is present. No pain upon palpation to the left shoulder or upper arm. Exam of the bilateral lower extremities reveal pain on internal and external rotation of the bilateral hips , more on the right. There is pain to palpation to the bilateral SI joints, more so on the right. No pain to the lateral hips. Bilateral calves are soft and non-tender. Good foot and ankle motion bilaterally. Neurological and circulatory status is intact. Results - Labs Labs: Abnormal Lab Results - Last 24 Hours (Table) 06/22/17 06/22/17 06/23/17 Range/Units 12:05 16:51 05:29 WBC 10.9 H (3.8-10.6) k/uL Plt Count 474 H (150-450) k/uL Sodium (137-145) mmol/L Potassium (3.5-5.1) mmol/L Carbon Dioxide (22-30) mmol/L BUN (7-17) mg/dL Creatinine (0.52-1.04) mg/dL Glucose (74-99) mg/dL POC Glucose (mg/dL) 127 H 121 H (75-99) mg/dL Alkaline Phosphatase (38-126) U/L 06/23/17 Range/Units 05:29 WBC (3.8-10.6) k/uL Plt Count (150-450) k/uL Sodium 134 L (137-145) mmol/L Potassium 5.2 H (3.5-5.1) mmol/L Carbon Dioxide 19 L (22-30) mmol/L BUN 23 H (7-17) mg/dL Creatinine 1.13 H (0.52-1.04) mg/dL Glucose 103 H (74-99) mg/dL POC Glucose (mg/dL) (75-99) mg/dL Alkaline Phosphatase 205 H (38-126) U/L H & H 06/20/17 06/21/17 06/22/17 Range/Units 06:00 10:42 05:53 Hgb 12.1 11.4 12.4 (11.4-16.0) gm/dL Hct 39.0 36.5 39.8 (34.0-46.0) % 06/23/17 Range/Units 05:29 Hgb 13.4 (11.4-16.0) gm/dL Hct 40.6 (34.0-46.0) % Result Diagrams: 06/23/17 05:29 06/23/17 05:29 - Diagnostic results Elbow x-ray: image reviewed (Healing radial head fracture and coronoid process fracture (which was occult on the last x-ray)) Hip CT: other (Pelvis CT reveals non-displaced fractures of the right superior and inferior pubic ramis and a displaced fracture of the superior pubic rami extending into the acetabulum. Non-displaced fracture of the left inferior pubic rami) Assessment and Plan (1) Fall Current Visit: Yes Status: Acute Code(s): W19.XXXA - UNSPECIFIED FALL, INITIAL ENCOUNTER SNOMED Code(s): 2247345 (2) Bilateral pubic rami fractures Current Visit: Yes Status: Acute Code(s): S32.591A - OTH FRACTURE OF RIGHT PUBIS, INIT ENCNTR FOR CLOSED FRACTURE; S32.592A - OTH FRACTURE OF LEFT PUBIS, INIT ENCNTR FOR CLOSED FRACTURE SNOMED Code(s): 175917835 (3) Left radial head fracture Current Visit: No Status: Acute Code(s): S52.122A - DISP FX OF HEAD OF LEFT RADIUS, INIT FOR CLOS FX SNOMED Code(s): 957969954 Plan: The clinical and x-ray findings were discussed with the patient. The case was discussed with Dr. James. Continue pain control. Continue physical and occupational therapy. She will be non-weightbearing on the left lower and upper extremity and weightbearing as tolerated on the right lower extremity. Maintain sling to left upper extremity. She may return to rehab today and follow up with Dr. James in the office in two weeks.
--- NOTE | 2017-06-23 10:32 | XR ---
EXAMINATION TYPE: XR elbow limited LT DATE OF EXAM: 06/23/2017 CLINICAL HISTORY: Follow-up for radial head fracture TECHNIQUE: Frontal and lateral images of the left elbow are obtained. COMPARISON: 06/08/2017 FINDINGS: There is mild progression of impaction in comparison the prior exam of 06/08/2017 of the mason sversely oriented noncomminuted, nonintra-articular radial head fracture. No bridging callus or perio steal reaction. There also appears to be a nondisplaced fracture of the coronoid process. The previou sly seen joint effusion has resolved. No focal soft tissue swelling. IMPRESSION: 1. Minimal progression in the degree of impaction of the transversely oriented noncomminuted, nonintr a-articular radial head fracture. No periosteal reaction or bridging callus is yet seen. 2. Nondisplaced coronoid process fracture, radiographically occult on the prior. 3. Resolution of the previously seen small joint effusion.
--- NOTE | 2017-06-23 11:12 | P.DS ---
Providers Date of admission: 06/20/17 09:24 Expected date of discharge: 06/23/17 Attending physician: Ursula Mccullough Consults: 06/20/17 10:20 Consult Physician Routine Consulting Provider: Aliza Tejeda Consult Reason/Comments: syncope, r/o seizure Do you want consulting provider notified?: Yes 06/20/17 10:51 Consult Physician Routine Consulting Provider: Kojo Miranda Consult Reason/Comments: syncope, concern for QT prolongation Do you want consulting provider notified?: Yes Primary care physician: [facility] Course: This is a 71-year-old female. Her primary care physician is Dr. Basil Crowell. She has a past medical history of hypotension, gastroesophageal reflux disease, coronary artery disease, carotid stenosis and ischemic cardiomyopathy status post AICD, gout, anxiety and depression. She was recently hospitalized on June 08 following a fall secondary to dizziness with orthostatic changes ruled out. She ended up having a left radial fracture and left pelvic fracture. She was seen by orthopedics and they recommended splint and sling to the left arm and toe-touch weightbearing on the left lower extremity with follow-up with Dr. Montero 2 weeks. Patient was discharged here to [facility] for subacute rehab. She was discharged on tramadol as well as Avelox for early pneumonia and UTI. Patient was apparently found on the floor by her nurse this morning and was confused. Her states she was confused yesterday and he left there at 7 PM he also states she has had some twitching movements. Patient has a long-standing history of cholecystitis but surgery was not recommended due to her heart condition. Patient states that she was sitting in a chair or wheelchair and passed out but this is not confirmed. Patient is able to answer to person and place and time but is otherwise noted to be confused. CAT scan of the head revealed stable cerebral atrophy without acute intracranial process. Chest x-ray shows stable cardiomegaly. Slight improved aeration of the left lung base noted. Pelvis x- ray shows displaced fractures involving the left superior and inferior pubic rami. A mildly displaced fracture involving the right symphysis pubis suggested. Patient also was found to have elevated liver function tests with total bilirubin 2.2, AST 86 and alkaline phosphatase 156. Urinalysis was clear with nitrate and leukoesterase negative. CAT scan of the abdomen and pelvis revealed fractures of the superior inferior pubic rami bilaterally, cardiomegaly , partially eventration of the right hemidiaphragm, hepatomegaly, stable cystic disease in the left kidney. Minimal uncomplicated diverticulosis of the sigmoid colon. Patient was given a dose of Zosyn and admitted to the selective care unit for syncope and possible seizure activity and consult requested with neurology, EEG and carotid ultrasound ordered, tramadol, Avelox and Zofran discontinued. 06/21: Carotid study shows moderate plaquing with no hemodynamically significant stenosis. Patient has been seen by Dr. Tejeda with recommendations for EEG. Patient has been seen by cardiology and evaluation are ICD will be done with concern that patient's symptoms are related to orthostatic hypotension. Also low-dose losartan was added and Aldactone decreased. Patient's mental status is improved today from yesterday. EEG is pending. Nursing to obtain and applied patient's splint and arm sling for the left radial fracture. 06/22: Patient had EEG done this morning but this has not been read. ICD interrogation is scheduled. Consult added for Dr. James regarding the bilateral pelvic fracture. On last admission, patient had only left-sided. Patient continues to have some mild confusion but is more alert. Plan for discharge to [facility] tomorrow 06/23: Patient has been seen by orthopedics with recommendations to continue the same with nonweightbearing on the left and weightbearing as tolerated on the right, sling to the left upper extremity and nonweight bearing. X-ray of the left elbow reveals healing radial head fracture and patient has been cleared for discharge. EEG was moderately slow with no evidence of epileptiform discharges. ICD has been interrogated and found to have normal service function. Patient will be discharged back to [facility] today in stable condition. Discharge diagnoses: 1. Syncopal episode secondary to possible orthostatic hypotension. 2. Metabolic encephalopathy rule out seizure related to use of tramadol which reduces seizure threshold. 3. Admission on June 08 status post fall on stairs causing left radial fracture and left pelvic fracture. Patient was seen by Dr. James at that time with recommendations: Keep splint clean, dry, and intact until follow up with Dr. James, Sling for comfort, toe-touch on the left side, Follow up with Dr. James in 2 weeks. 4. Ischemic cardiomyopathy status post AICD placement. 5. Paroxysmal atrial fibrillation. 6. Carotid artery disease with prior carotid stenting. Discharge plan: Return to [facility] under the care of Dr. Jiang Impression and plan of care have been directed as dictated by the signing physician. Nancy Olivera nurse practitioner acting as scribe for signing physician. Patient Condition at Discharge: Good Plan - Discharge Summary New Discharge Prescriptions: New Acetaminophen Tab [Tylenol] 650 mg PO Q6HR PRN tab PRN Reason: Fever And/ Or Pain Aspirin 81 mg PO DAILY chew Losartan [Cozaar] 12.5 mg PO DAILY tab Spironolactone [Aldactone] 50 mg PO DAILY tab ALPRAZolam [Xanax] 0.5 mg PO HS PRN #30 tab PRN Reason: Anxiety Continue Citalopram Hydrobromide [CeleXA] 40 mg PO HS@2100 Potassium Chloride ER [K-Dur 20] 40 meq PO BID Rivaroxaban [Xarelto] 20 mg PO DAILY Ranitidine HCl [Zantac] 150 mg PO BID PRN PRN Reason: Heartburn Colchicine 0.6 mg PO DAILY PRN PRN Reason: GOUT Carvedilol [Coreg] 6.25 mg PO BID Torsemide [Demadex] 80 mg PO DAILY tab Magnesium Hydroxide [Milk of Magnesia Concentrate] 2,400 mg PO DAILY PRN ml PRN Reason: Constipation Ondansetron [Zofran] 4 mg PO Q6H PRN PRN Reason: Nausea Sennosides-Docusate Sodium [Senokot-S] 1 tab PO BID Cholecalciferol [Vitamin D3] 3,000 unit PO DAILY Cyanocobalamin [Vitamin B-12] 500 mcg PO DAILY Changed Meclizine [Antivert] 12.5 mg PO BID #0 tab Discontinued Spironolactone 100 mg PO DAILY Moxifloxacin HCl [Avelox] 400 mg PO DAILY #10 tablet Discharge Medication List Citalopram Hydrobromide [CeleXA] 40 mg PO HS@2100 07/16/14 [History] Potassium Chloride ER [K-Dur 20] 40 meq PO BID 11/20/14 [History] Ranitidine HCl [Zantac] 150 mg PO BID PRN 06/27/16 [History] Rivaroxaban [Xarelto] 20 mg PO DAILY 06/27/16 [History] Carvedilol [Coreg] 6.25 mg PO BID 06/09/17 [History] Colchicine 0.6 mg PO DAILY PRN 06/09/17 [History] Torsemide [Demadex] 80 mg PO DAILY tab 06/11/17 [Rx] Magnesium Hydroxide [Milk of Magnesia Concentrate] 2,400 mg PO DAILY PRN ml 01/22 [Rx] Cholecalciferol [Vitamin D3] 3,000 unit PO DAILY 06/20/17 [History] Cyanocobalamin [Vitamin B-12] 500 mcg PO DAILY 06/20/17 [History] Ondansetron [Zofran] 4 mg PO Q6H PRN 06/20/17 [History] Sennosides-Docusate Sodium [Senokot-S] 1 tab PO BID 06/20/17 [History] ALPRAZolam [Xanax] 0.5 mg PO HS PRN #30 tab 06/22/17 [Rx] Acetaminophen Tab [Tylenol] 650 mg PO Q6HR PRN tab 06/22/17 [Rx] Aspirin 81 mg PO DAILY chew 06/22/17 [Rx] Losartan [Cozaar] 12.5 mg PO DAILY tab 06/22/17 [Rx] Meclizine [Antivert] 12.5 mg PO BID #0 tab 06/22/17 [Rx] Spironolactone [Aldactone] 50 mg PO DAILY tab 06/22/17 [Rx] Follow up Appointment(s)/Referral(s): Dorita Jiang MD [Primary Care Provider] - 1 Week (at [facility]) Alex James DO [Doctor of Osteopathic Medicine] - 2 Weeks Basil Crowell DO [STAFF PHYSICIAN] - 1 Week (after discharge from [facility]) Activity/Diet/Wound Care/Special Instructions: Sling to left upper extremity No weightbearing on left leg and left arm Weightbearing as tolerated on the right leg Follow up with Dr. James in 2 weeks Discharge Disposition: TRANSFER TO SNF/ECF
[2017-06-23 11:58] VITALS: BP 99/67; PULSE 93; TEMP 97.7
--- NOTE | 2017-06-23 15:09 | P.PN ---
Subjective Progress Note Date: 06/23/17 This is a 71-year-old female who follows with Dr. Yee at [facility] for her cardiac needs. She has history of paroxysmal atrial fibrillation, coronary artery disease with subsequent bypass grafting, ischemic cardio myopathy with prior AICD, PAD with prior carotid endarterectomy hypertension, hyperlipidemia, prior history of smoking, anxiety, recent hospitalization earlier this month after experiencing a fall with subsequent pelvic fracture and radial head fracture. She is currently at rehab at [facility] , she apparently was found on the floor after experiencing a fall. According to the patient, she didn't lose consciousness, she states she's also been significantly dizzy for an extended period of time. Cardiology consultation was requested for syncope. EKG on arrival here showed normal sinus rhythm with ST-T wave changes in the inferior lateral leads. QTC 459. CAT scan of the head and spine revealed stable cerebral atrophy without any acute intracranial process. Chest x-ray stable. Pelvis x-ray revealed displaced fractures involving the left superior and inferior pubic gram IV. Mildly displaced fracture involving the right symphysis pubis. Abdominal ultrasound did not reveal any acute abnormality. CAT scan of the abdomen and pelvis revealed fractures of the superior, inferior pubic rami bilaterally. Hepatomegaly, stable cystic disease in the left kidney. Carotid duplex study does not reveal any hemodynamically significant stenosis. Blood pressure 125/70 with a heart rate in the 70s. White blood cell count 14.7, hemoglobin 12.1, platelet count 465. Sodium 130, BUN 32, creatinine 0.9. Troponin 0.012. TSH 4.0. At the time of my examination this morning, patient denies any chest discomfort, no dizziness or lightheadedness, no palpitations. She is complaining of significant pain at the right pelvis area. 06/22/2017 Patient seen and examined this morning, sitting up in the chair at bedside. Quite confused today overall. Orthostatics were checked which came back to be negative. No arrhythmias have been noted on the monitor, we are waiting [facility] a device [facility]. 06/23/2017 Patient seen and examined this morning, sitting up in the chair at bedside. [facility] was in and interrogated the device, it did not reveal any evidence of arrhythmia. Objective - Vital Signs Vital signs: Vital Signs Temp 97.7 F 06/23/17 11:55 Pulse 93 06/23/17 11:55 Resp 16 06/23/17 11:55 BP 99/67 06/23/17 11:55 Pulse Ox 94 L 06/23/17 11:55 Intake & Output 06/22/17 06/23/17 06/23/17 18:59 06:59 18:59 Intake Total 180 230 120 Output Total 601 400 2 Balance -421 -170 118 Weight 0 g Intake: Intake, IV Titration 0 Amount Sodium Chloride 0.9% 1, 0 000 ml @ 80 mls/hr IV . [id number] [facility] Rx#:[id number] Oral 180 230 120 Output: Urine 600 400 0 Stool 1 2 Other: Voiding Method Diaper Diaper Diaper Incontinent Incontinent Incontinent # Voids 3 1 - Exam PHYSICAL EXAMINATION: 71-year-old female, mild distress, complaining of pain in the right pelvis area HEENT: Head is atraumatic, normocephalic. Pupils equal, round. Neck is supple. There is no elevated jugular venous pressure. HEART EXAMINATION: Heart S1, S2 systolic ejection murmur heard . No murmur or gallop heard. CHEST EXAMINATION: Lungs are clear to auscultation and precussion. No chest wall tenderness is noted on palpation or with deep breathing. ABDOMEN: Soft, nontender. Bowel sounds are heard. No organomegaly noted. EXTREMITIES: 2+ peripheral pulses with no evidence of peripheral edema and no calf tenderness noted. NEUROLOGIC patient is awake, alert and oriented -3. . - Labs CBC & Chem 7: 06/23/17 05:29 06/23/17 05:29 Labs: Abnormal Lab Results - Last 24 Hours (Table) 06/22/17 06/23/17 06/23/17 Range/Units 16:51 05:29 05:29 WBC 10.9 H (3.8-10.6) k/uL Plt Count 474 H (150-450) k/uL Sodium 134 L (137-145) mmol/L Potassium 5.2 H (3.5-5.1) mmol/L Carbon Dioxide 19 L (22-30) mmol/L BUN 23 H (7-17) mg/dL Creatinine 1.13 H (0.52-1.04) mg/dL Glucose 103 H (74-99) mg/dL POC Glucose (mg/dL) 121 H (75-99) mg/dL Alkaline Phosphatase 205 H (38-126) U/L Assessment and Plan Plan: Assessment and plan #1 syncope with fall. Rule out cardiac causes. EKG shows normal sinus rhythm with inferior lateral ST-T wave changes, similar to prior EKGs. Blood pressure 124/70. No tachycardia or bradycardia arrhythmias noted. Echocardiogram with Doppler study was performed on June 09 which revealed an ejection fraction of 30-35% moderate MR. #2 recent hospitalization following a fall where the patient incurred a pelvis fracture as well as a radial head fracture on the left eye #3 paroxysmal atrial fibrillation #4 coronary artery disease with prior bypass surgery #5 ischemic cardio myopathy with prior AICD #6 PAD with prior carotid stenting Plan Cardiology's perspective, we'll follow this patient with you now on an as- needed basis only, please don't hesitate to call with any questions. DNP note has been reviewed, I agree with a documented findings and plan of care. Patient was seen and examined.
== END 2017-06-23 14:11 | DRG 312 ==
LOC: EC 05:05 → 4MS4W 09:24 → 6SEL 10:27
PROVIDERS: ADMIT Internal Medicine; ATTEND Internal Medicine
DX: I95.1 Orthostatic hypotension (principal); G93.41 Metabolic encephalopathy; S32.511A Fracture of superior rim of right pubis, initial encounter for closed fracture; I65.29 Occlusion and stenosis of unspecified carotid artery; K81.9 Cholecystitis, unspecified; I48.0 Paroxysmal atrial fibrillation; R16.0 Hepatomegaly, not elsewhere classified; I25.5 Ischemic cardiomyopathy; K21.9 Gastro-esophageal reflux disease without esophagitis; I25.10 Atherosclerotic heart disease of native coronary artery without angina pectoris; M43.12 Spondylolisthesis, cervical region; E78.5 Hyperlipidemia, unspecified; I10 Essential (primary) hypertension; F41.9 Anxiety disorder, unspecified; F32.9 Major depressive disorder, single episode, unspecified; S52.122A Displaced fracture of head of left radius, initial encounter for closed fracture; M10.9 Gout, unspecified; Z85.820 Personal history of malignant melanoma of skin; Z90.710 Acquired absence of both cervix and uterus; Z87.891 Personal history of nicotine dependence; Z82.3 Family history of stroke; Z79.899 Other long term (current) drug therapy; Z95.810 Presence of automatic (implantable) cardiac defibrillator; Z79.01 Long term (current) use of anticoagulants; Z88.6 Allergy status to analgesic agent; Z88.1 Allergy status to other antibiotic agents; Z87.01 Personal history of pneumonia (recurrent); Z87.440 Personal history of urinary (tract) infections; W06.XXXA Fall from bed, initial encounter; Z95.1 Presence of aortocoronary bypass graft; Z90.49 Acquired absence of other specified parts of digestive tract; Z79.82 Long term (current) use of aspirin
CPT/HCPCS: 36415; 70450; 71045; 72125; 72170; 74177; 76705; 80053; 81003; 82550; 82553; 83036; 83605; 84443; 84484; 85025; 85027; 93005; 93880; 95819; 96365; 96366; 99285

== ENCOUNTER 2017-08-23 10:54 | Inpatient (IN) | payer MEDICARE ==
[2017-08-23 11:22] LABS: Glucose,Whole Blood 106 mg/dL (75-99)
[2017-08-23] MEDS ORDERED: SODIUM CHLORIDE 0.9% 500 ML IV ONE (11:40)
[2017-08-23 11:49] LABS: Glucose,Whole Blood 92 mg/dL (75-99)
--- NOTE | 2017-08-23 11:49 | ED ---
General Adult HPI - General Chief complaint: Altered Mental Status Stated complaint: Confusion Time Seen by Provider: 08/23/17 11:00 Source: patient, RN notes reviewed Mode of arrival: wheelchair Limitations: no limitations - History of Present Illness Initial comments: This is a 72-year-old female presents emergency department with altered male status since last night at 10:00 according to the . states the patient is stating that the patient is talking about the kids are waiting for the school bus even though her cancer 40 years old. According to the she just is not acting herself and is babbling about things that are not making sense. Patient is alert and oriented 2 according to him. Patient denies any physical complaints patient denies any pain states his been no recent fever chills cough difficulty breathing or any nausea vomiting. Patient states this occurred shortly after the patient took her medications but they don't have a medication list with him. - Related Data Home Medications Medication Instructions Recorded Confirmed Citalopram Hydrobromide [CeleXA] 40 mg PO HS@2100 07/16/14 08/23/17 Potassium Chloride ER [K-Dur 20] 20 meq PO Q48H 11/20/14 08/23/17 Ranitidine HCl [Zantac] 150 mg PO BID 06/27/16 08/23/17 Rivaroxaban [Xarelto] 20 mg PO DAILY 06/27/16 08/23/17 Carvedilol [Coreg] 6.25 mg PO BID 06/09/17 08/23/17 ALPRAZolam [Xanax] 2 mg PO TID PRN 08/23/17 08/23/17 Allopurinol [Zyloprim] 100 mg PO DAILY 08/23/17 08/23/17 Indomethacin [Indocin] 50 mg PO TID 08/23/17 08/23/17 Omeprazole 20 mg PO BID PRN 08/23/17 08/23/17 Potassium Chloride ER [K-Dur 20] 40 meq PO Q48H 08/23/17 08/23/17 Spironolactone 50 mg PO DAILY 08/23/17 08/23/17 Torsemide [Demadex] 100 mg PO DAILY 08/23/17 08/23/17 Allergies Allergy/AdvReac Type Severity Reaction Status Date / Time cephalexin monohydrate Allergy Rash/Hives Verified 06/20/17 08:38 [From Keflex] lisinopril Allergy Rash/Hives Verified 06/20/17 08:38 morphine Allergy Rash/Hives/ Verified 06/20/17 08:38 Sob warfarin [From Coumadin] Allergy Rash/Hives Verified 06/20/17 08:38 codeine AdvReac Nausea & Verified 06/20/17 08:38 Vomiting hydrocodone [From [place]] AdvReac Nausea & Verified 06/20/17 08:38 Vomiting Review of Systems ROS Statement: Those systems with pertinent positive or pertinent negative responses have been documented in the HPI. ROS Other: All systems not noted in ROS Statement are negative. 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- SEE SPECIALIST IN CONFLUENCE 10/02/14 TO CHECK AICD Past Anesthesia/Blood Transfusion Reactions: Motion Sickness Type of Cardiac Device: Permanent Pacemaker, AICD Device Placement Date:: 2011 Past Psychological History: Anxiety Smoking Status: Former smoker Past Alcohol Use History: None Reported Past Drug Use History: None Reported - Past Family History Father Additional Family Medical History / Comment(s): Father from old age. Daughter(s) Additional Family Medical History / Comment(s): Patient has 2 adult children with no major medical problems. Mother Family Medical History: CVA/TIA Additional Family Medical History / Comment(s): Mother from old age. General Exam - General Exam Comments Initial Comments: GENERAL: Patient is well-developed and well-nourished. Patient is nontoxic and well- hydrated and is in no acute distress. ENT: Neck is soft and supple. No significant lymphadenopathy is noted. Oropharynx is clear. Moist mucous membranes. Neck has full range of motion without eliciting any pain. EYES: The sclera were anicteric and conjunctiva were pink and moist. Extraocular movements were intact and pupils were equal round and reactive to light. Eyelids were unremarkable. PULMONARY: Unlabored respirations. Good breath sounds bilaterally. No audible rales rhonchi or wheezing was noted. CARDIOVASCULAR: There is a regular rate and rhythm without any murmurs gallops or rubs. ABDOMEN: Soft and nontender with normal bowel sounds. No palpable organomegaly was noted. There is no palpable pulsatile mass. SKIN: Skin is clear with no lesions or rashes and otherwise unremarkable. NEUROLOGIC: Patient is alert and oriented 2. Cranial nerves II through XII are grossly intact. Motor and sensory are also intact. Normal speech, volume and content. Symmetrical smile. MUSCULOSKELETAL: Normal extremities with adequate strength and full range of motion. LYMPHATICS: No significant lymphadenopathy is noted PSYCHIATRIC: Patient is answering questions that were asked and doesn't seem to understand some questions I ask her. states this is completely abnormal. Limitations: no limitations Course Vital Signs 08/23/17 08/23/17 11:00 13:09 Temperature 97.9 F Pulse Rate 85 74 Respiratory 16 18 Rate Blood Pressure 136/74 129/63 O2 Sat by Pulse 95 97 Oximetry Medical Decision Making - Medical Decision Making EKG shows sinus rhythm with occasional PVC at a rate of 80 bpm WA interval is 194 QRS is 102 QT interval 394 QTC is 454. Patient's EKG shows no ST segment elevation or ST segment depression. CT of the brain shows no acute abnormality. Chest x-ray shows no acute normalities. I went back in to reevaluate the patient she continued to be confused and states she has gotten no better while being in the emergency department. I spoke with the hospitalist for Dr. Crowell and he agreed to admit the patient admitted the patient I wrote admitting orders. - Lab Data Result diagrams: 08/23/17 11:47 08/23/17 11:47 Lab Results 08/23/17 08/23/17 08/23/17 Range/Units 11:21 11:37 11:47 WBC (3.8-10.6) k/uL RBC (3.80-5.40) m/uL Hgb (11.4-16.0) gm/dL Hct (34.0-46.0) % MCV (80.0-100.0) fL MCH (25.0-35.0) pg MCHC (31.0-37.0) g/dL RDW (11.5-15.5) % Plt Count (150-450) k/uL Neutrophils % % Lymphocytes % % Monocytes % % Eosinophils % % Basophils % % Neutrophils # (1.3-7.7) k/uL Lymphocytes # (1.0-4.8) k/uL Monocytes # (0-1.0) k/uL Eosinophils # (0-0.7) k/uL Basophils # (0-0.2) k/uL PT (9.0-12.0) sec INR (<1.2) APTT (22.0-30.0) sec Sodium (137-145) mmol/L Potassium (3.5-5.1) mmol/L Chloride (98-107) mmol/L Carbon Dioxide (22-30) mmol/L Anion Gap mmol/L BUN (7-17) mg/dL Creatinine (0.52-1.04) mg/dL Est GFR (CKD-EPI)AfAm (>60 ml/min/1.73 sqM) Est GFR (CKD-EPI)NonAf (>60 ml/min/1.73 sqM) Glucose (74-99) mg/dL POC Glucose (mg/dL) 106 H 92 (75-99) mg/dL POC Glu Imaging Assistant ID Roscoe Joyce Donovan Calcium (8.4-10.2) mg/dL Total Bilirubin (0.2-1.3) mg/dL AST (14-36) U/L ALT (9-52) U/L Alkaline Phosphatase (38-126) U/L Total Creatine Kinase 47 (30-135) U/L CK-MB (CK-2) 0.4 (0.0-2.4) ng/mL CK-MB (CK-2) Rel Index 0.9 Troponin I <0.012 (0.000-0.034) ng/mL NT-Pro-B Natriuret Pep pg/mL Total Protein (6.3-8.2) g/dL Albumin (3.5-5.0) g/dL Urine Color Urine Appearance (Clear) Urine pH (5.0-8.0) Ur Specific [place] (1.001-1.035) Urine Protein (Negative) Urine Glucose (UA) (Negative) Urine Ketones (Negative) Urine Blood (Negative) Urine Nitrite (Negative) Urine Bilirubin (Negative) Urine Urobilinogen (<2.0) mg/dL Ur Leukocyte Esterase (Negative) Urine RBC (0-5) /hpf Urine WBC (0-5) /hpf Ur Squamous Epith Cells (0-4) /hpf Urine Bacteria (None) /hpf Hyaline Casts (0-2) /lpf Urine Mucus (None) /hpf Urine Opiates Screen (NotDetected) Ur Oxycodone Screen (NotDetected) Urine Methadone Screen (NotDetected) Ur Propoxyphene Screen (NotDetected) Ur Barbiturates Screen (NotDetected) U Tricyclic Antidepress (NotDetected) Ur Phencyclidine Scrn (NotDetected) Ur Amphetamines Screen (NotDetected) U Methamphetamines Scrn (NotDetected) U Benzodiazepines Scrn (NotDetected) Urine Cocaine Screen (NotDetected) U Marijuana (THC) Screen (NotDetected) 08/23/17 08/23/17 08/23/17 Range/Units 11:47 11:47 11:47 WBC 5.4 (3.8-10.6) k/uL RBC 3.60 L (3.80-5.40) m/uL Hgb 10.9 L (11.4-16.0) gm/dL Hct 32.7 L (34.0-46.0) % MCV 90.9 (80.0-100.0) fL MCH 30.3 (25.0-35.0) pg MCHC 33.3 (31.0-37.0) g/dL RDW 14.7 (11.5-15.5) % Plt Count 294 (150-450) k/uL Neutrophils % 62 % Lymphocytes % 21 % Monocytes % 8 % Eosinophils % 4 % Basophils % 1 % Neutrophils # 3.3 (1.3-7.7) k/uL Lymphocytes # 1.1 (1.0-4.8) k/uL Monocytes # 0.4 (0-1.0) k/uL Eosinophils # 0.2 (0-0.7) k/uL Basophils # 0.1 (0-0.2) k/uL PT 9.7 (9.0-12.0) sec INR 1.0 (<1.2) APTT 23.5 (22.0-30.0) sec Sodium 143 (137-145) mmol/L Potassium 4.3 (3.5-5.1) mmol/L Chloride 108 H (98-107) mmol/L Carbon Dioxide 24 (22-30) mmol/L Anion Gap 11 mmol/L BUN 26 H (7-17) mg/dL Creatinine 1.98 H (0.52-1.04) mg/dL Est GFR (CKD-EPI)AfAm 29 (>60 ml/min/1.73 sqM) Est GFR (CKD-EPI)NonAf 25 (>60 ml/min/1.73 sqM) Glucose 84 (74-99) mg/dL POC Glucose (mg/dL) (75-99) mg/dL POC Glu Imaging Assistant ID Calcium 9.1 (8.4-10.2) mg/dL Total Bilirubin 0.2 (0.2-1.3) mg/dL AST 20 (14-36) U/L ALT 18 (9-52) U/L Alkaline Phosphatase 113 (38-126) U/L Total Creatine Kinase (30-135) U/L CK-MB (CK-2) (0.0-2.4) ng/mL CK-MB (CK-2) Rel Index Troponin I (0.000-0.034) ng/mL NT-Pro-B Natriuret Pep pg/mL Total Protein 6.0 L (6.3-8.2) g/dL Albumin 3.3 L (3.5-5.0) g/dL Urine Color Urine Appearance (Clear) Urine pH (5.0-8.0) Ur Specific [place] (1.001-1.035) Urine Protein (Negative) Urine Glucose (UA) (Negative) Urine Ketones (Negative) Urine Blood (Negative) Urine Nitrite (Negative) Urine Bilirubin (Negative) Urine Urobilinogen (<2.0) mg/dL Ur Leukocyte Esterase (Negative) Urine RBC (0-5) /hpf Urine WBC (0-5) /hpf Ur Squamous Epith Cells (0-4) /hpf Urine Bacteria (None) /hpf Hyaline Casts (0-2) /lpf Urine Mucus (None) /hpf Urine Opiates Screen (NotDetected) Ur Oxycodone Screen (NotDetected) Urine Methadone Screen (NotDetected) Ur Propoxyphene Screen (NotDetected) Ur Barbiturates Screen (NotDetected) U Tricyclic Antidepress (NotDetected) Ur Phencyclidine Scrn (NotDetected) Ur Amphetamines Screen (NotDetected) U Methamphetamines Scrn (NotDetected) U Benzodiazepines Scrn (NotDetected) Urine Cocaine Screen (NotDetected) U Marijuana (THC) Screen (NotDetected) 08/23/17 08/23/17 Range/Units 11:47 12:39 WBC (3.8-10.6) k/uL RBC (3.80-5.40) m/uL Hgb (11.4-16.0) gm/dL Hct (34.0-46.0) % MCV (80.0-100.0) fL MCH (25.0-35.0) pg MCHC (31.0-37.0) g/dL RDW (11.5-15.5) % Plt Count (150-450) k/uL Neutrophils % % Lymphocytes % % Monocytes % % Eosinophils % % Basophils % % Neutrophils # (1.3-7.7) k/uL Lymphocytes # (1.0-4.8) k/uL Monocytes # (0-1.0) k/uL Eosinophils # (0-0.7) k/uL Basophils # (0-0.2) k/uL PT (9.0-12.0) sec INR (<1.2) APTT (22.0-30.0) sec Sodium (137-145) mmol/L Potassium (3.5-5.1) mmol/L Chloride (98-107) mmol/L Carbon Dioxide (22-30) mmol/L Anion Gap mmol/L BUN (7-17) mg/dL Creatinine (0.52-1.04) mg/dL Est GFR (CKD-EPI)AfAm (>60 ml/min/1.73 sqM) Est GFR (CKD-EPI)NonAf (>60 ml/min/1.73 sqM) Glucose (74-99) mg/dL POC Glucose (mg/dL) (75-99) mg/dL POC Glu Imaging Assistant ID Calcium (8.4-10.2) mg/dL Total Bilirubin (0.2-1.3) mg/dL AST (14-36) U/L ALT (9-52) U/L Alkaline Phosphatase (38-126) U/L Total Creatine Kinase (30-135) U/L CK-MB (CK-2) (0.0-2.4) ng/mL CK-MB (CK-2) Rel Index Troponin I (0.000-0.034) ng/mL NT-Pro-B Natriuret Pep 1380 pg/mL Total Protein (6.3-8.2) g/dL Albumin (3.5-5.0) g/dL Urine Color Yellow Urine Appearance Clear (Clear) Urine pH 5.5 (5.0-8.0) Ur Specific [place] 1.012 (1.001-1.035) Urine Protein Negative (Negative) Urine Glucose (UA) Negative (Negative) Urine Ketones Negative (Negative) Urine Blood Negative (Negative) Urine Nitrite Negative (Negative) Urine Bilirubin Negative (Negative) Urine Urobilinogen <2.0 (<2.0) mg/dL Ur Leukocyte Esterase Small H (Negative) Urine RBC <1 (0-5) /hpf Urine WBC 2 (0-5) /hpf Ur Squamous Epith Cells 1 (0-4) /hpf Urine Bacteria Rare H (None) /hpf Hyaline Casts 41 H (0-2) /lpf Urine Mucus Rare H (None) /hpf Urine Opiates Screen Not Detected (NotDetected) Ur Oxycodone Screen Not Detected (NotDetected) Urine Methadone Screen Not Detected (NotDetected) Ur Propoxyphene Screen Not Detected (NotDetected) Ur Barbiturates Screen Not Detected (NotDetected) U Tricyclic Antidepress Not Detected (NotDetected) Ur Phencyclidine Scrn Not Detected (NotDetected) Ur Amphetamines Screen Not Detected (NotDetected) U Methamphetamines Scrn Not Detected (NotDetected) U Benzodiazepines Scrn Detected H (NotDetected) Urine Cocaine Screen Not Detected (NotDetected) U Marijuana (THC) Screen Not Detected (NotDetected) Disposition Clinical Impression: Altered mental status, Acute kidney injury Disposition: ADMITTED IP TO THIS HOSP Referrals: Basil Crowell DO [Primary Care Provider] - 1-2 days Time of Disposition: 13:14
[2017-08-23 12:03] LABS: Basophils # (A) 0.1 k/uL (0-0.2); Basophils % (A) 1 %; Eosinophils # (A) 0.2 k/uL (0-0.7); Eosinophils % (A) 4 %; HCT 32.7 % (34.0-46.0); HGB 10.9 gm/dL (11.4-16.0); Lymphocytes # (A) 1.1 k/uL (1.0-4.8); Lymphocytes % (A) 21 %; MCH 30.3 pg (25.0-35.0); MCHC 33.3 g/dL (31.0-37.0); MCV 90.9 fL (80.0-100.0); Mean Platelet Volume 6.6; Monocytes # (A) 0.4 k/uL (0-1.0); Monocytes % (A) 8 %; Neutrophils # (A) 3.3 k/uL (1.3-7.7); Neutrophils % (A) 62 %; Platelet Count 294 k/uL (150-450); RDW 14.7 % (11.5-15.5); WBC 5.4 k/uL (3.8-10.6)
[2017-08-23 12:15] LABS: Albumin 3.3 g/dL (3.5-5.0); Calcium 9.1 mg/dL (8.4-10.2); Potassium 4.3 mmol/L (3.5-5.1); Total Bilirubin 0.2 mg/dL (0.2-1.3)
[2017-08-23 12:16] LABS: Partial Thromboplastin Time 23.5 sec (22.0-30.0); Prothrombin Time 9.7 sec (9.0-12.0)
--- NOTE | 2017-08-23 12:23 | CT ---
EXAMINATION TYPE: CT brain wo con DATE OF EXAM: 08/23/2017 COMPARISON: Prior brain CT 06/20/2017 HISTORY: AMS CT DLP: 999.8 mGycm Automated exposure control for dose reduction was used. Helical acquisition through the brain FINDINGS: No interval change. No hemorrhage or hydrocephalus. Cerebral vascular calcifications are present. The re is cortical atrophy is likely age-related. Periventricular white matter shows low attenuation as o n prior exam. 14 mm extra-axial soft tissue mass with peripheral calcification extending from the inn er table left frontal region is again noted and is similar in appearance. Calvarium is intact. IMPRESSION: STABLE EXAM, NO ACUTE ABNORMALITIES EVIDENT. PROBABLE MENINGIOMA. 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
[2017-08-23 12:27] LABS: Creatine Kinase 47 U/L (30-135)
--- NOTE | 2017-08-23 12:39 | XR ---
EXAMINATION TYPE: XR chest 2V DATE OF EXAM: 08/23/2017 COMPARISON: Prior chest x-ray 06/20/2017 HISTORY: Altered mental status, difficulty breathing TECHNIQUE: Frontal and lateral views of the chest are obtained. FINDINGS: Heart is enlarged. Central vascularity and interstitium are increased. No evident pneumoth orax or pleural effusion. Defibrillator leads are stable. Patient is rotated. IMPRESSION: Correlate for pulmonary venous hypertension and interstitial edema. Recommended.
[2017-08-23 12:41] LABS: Creatine Kinase MB 0.4 ng/mL (0.0-2.4); Troponin I <0.012 ng/mL (0.000-0.034)
[2017-08-23 12:56] LABS: Appearance,Urine Clear (Clear); Bacteria,Urine Rare /hpf; Bilirubin,Urine Negative (Negative); Blood,Urine Negative (Negative); Color,Urine Yellow; Glucose,Urine (UA) Negative (Negative); Hyaline Casts,Urine 41 /lpf (0-2); Ketones,Urine Negative (Negative); Leukocyte Esterase,Urine Small (Negative); Mucus,Urine Rare /hpf; Nitrite,Urine Negative (Negative); PH, Urine 5.5 (5.0-8.0); Protein,Urine Negative (Negative); RBC,Urine <1 /hpf (0-5); Specific Gravity,Urine 1.012 (1.001-1.035); Squamous Epithelial Cell,Urine 1 /hpf (0-4); Urobilinogen,Urine <2.0 mg/dL (<2.0); WBC,Urine 2 /hpf (0-5)
[2017-08-23 13:02] LABS: Amphetamine Screen,Urine Not Detected (NotDetected); Barbiturate Screen,Urine Not Detected (NotDetected); Benzodiazepines Screen,Urine Detected (NotDetected); Cocaine Screen,Urine Not Detected (NotDetected); Methadone Screen, Urine Not Detected (NotDetected); Opiate Screen,Urine Not Detected (NotDetected); Oxycodone Screen, Urine Not Detected (NotDetected); Phencyclidine Screen,Urine Not Detected (NotDetected); Tricyclic Antidepressant,Urine Not Detected (NotDetected); Urn Cannabinoid Scrn Not Detected (NotDetected)
[2017-08-23] MEDS ORDERED: SODIUM CHLORIDE 0.9% 1,000 ML IV ONE (13:14)
[2017-08-23] MEDS ORDERED: ACETAMINOPHEN TAB 500 MG TAB PO PRN (14:50)
[2017-08-23] MEDS ORDERED: ONDANSETRON 4 MG TAB PO PRN (14:50)
[2017-08-23] MEDS: CARVEDILOL 6.25 MG TAB PO SCH (15:14)
[2017-08-23] MEDS: FAMOTIDINE 20 MG TAB PO SCH (15:14)
[2017-08-23] MEDS ORDERED: NITROGLYCERIN SL TABS 0.4 MG TAB SUBLINGUAL PRN (15:22)
[2017-08-23 16:14] LABS: Creatine Kinase 45 U/L (30-135)
[2017-08-23 16:26] LABS: Creatine Kinase MB 0.5 ng/mL (0.0-2.4); Troponin I <0.012 ng/mL (0.000-0.034)
--- NOTE | 2017-08-23 20:47 | P.HPIM ---
History of Present Illness H&P Date: 08/23/17 Chief Complaint: change in mental status This is a 71-year-old female. Her primary care physician is Dr. Basil Crowell. She has a past medical history of hypotension, gastroesophageal reflux disease, coronary artery disease, carotid stenosis and ischemic cardiomyopathy status post AICD, gout, anxiety and depression. She was recently hospitalized on June 08 following a fall secondary to dizziness with orthostatic changes ruled out. She ended up having a left radial fracture and left pelvic fracture. She was seen by orthopedics and they recommended splint and sling to the left arm and toe-touch weightbearing on the left lower extremity. Patient was again admitted on June 20 with confusion likely secondary to tramadol. She did present with history of passing out. AICD interrogation was done during the admission and found to have normal service function. Orthostatics were negative during the admission. Neurology saw the patient during that admission and conducted EEG which suggested slowing but no evidence of epileptiform discharges. Patient was discharged to [facility] for rehab. Patient is brought in today with altered mental status that started last night according to the . According to the patient was not at her baseline as she is oriented 2 at baseline. Patient states she was just discharged from [facility] 2 days ago. On evaluation, patient is able to tell her name, month and year and also the president but does seems to be confused. She does also complains of shortness of breath and chest pain that started in the evening. Troponin 1 is negative. EKG did not show any ST or T-wave abnormality. Chest x-ray was done that suggested increase in central vascularity and interstitial concerning for interstitial edema. Patient did receive a liter of IV fluid and fluids were running at 50 mL/h which was stopped. CT head was done negative for any acute abnormality. Creatinine is 1.98 slightly elevated from baseline. BNP 1380. Urine drug screen positive for benzodiazepine which is held. Patient takes Ativan at bedtime at home. Torsemide, lisinopril, spironolactone held for concern of increased creatinine. Monitor CMP tomorrow. Neurology consulted for change in mental status. Review of Systems Constitutional: Denies chills, Denies fever, Denies lethargy, Denies malaise, Denies poor appetite, Denies weakness, Denies weight loss Eyes: denies decreased vision, denies diplopia, denies discharge, denies pain Ears: deny: decreased hearing Ears, nose, mouth and throat: Denies dental pain, Denies headache, Denies nasal discharge, Denies nose pain Cardiovascular: Endorses chest pain, endorses decreased exercise tolerance, Denies edema, Denies high blood pressure, endorses irregular heart beat, Denies palpitations, Denies paroxysmal nocturnal dyspnea, Denies rapid heart beat, endorses shortness of breath Respiratory: Denies congestion, endorses cough, endorses cough with sputum, endorses dyspnea, Denies home oxygen, Denies wheezing Gastrointestinal: Denies abdominal pain, Denies change in bowel habits, Denies coffee ground emesis, Denies early satiety, Denies excessive gas, Denies heartburn, Denies hematemesis, Denies hematochezia, Denies loss of appetite, Denies nausea, Denies vomiting Genitourinary: Denies dysuria, Denies flank pain, Denies kidney stones, Denies menorrhagia, Denies urgency, Denies urinary frequency Musculoskeletal: Endorses gait dysfunction, endorses limitation of motion uses walker, Denies morning stiffness, Denies muscle cramps Integumentary: Denies rash, Denies wounds, Denies brittle nails, Denies change in hair/nails, Denies darkening of skin Neurological: Endorses balance difficulties, Denies change in speech, Denies double vision, endorses gait dysfunction, Denies loss of vision, Denies motor disturbance, Denies numbness, Denies paralysis, Denies paresthesias, Denies seizures Psychiatric: Denies anxiety, Denies depression Endocrine: Denies excessive sweating, Denies excessive thirst, Denies high blood sugars, Denies palpitations Hematologic/Lymphatic: Denies easy bruising, Denies lymphadenopathy Past Medical History Past Medical History: Atrial Fibrillation, Coronary Artery Disease (CAD), Cancer , GERD/Reflux, Pneumonia Additional Past Medical History / Comment(s): 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 [place] 10/02/14 TO CHECK AICD Past Anesthesia/Blood Transfusion Reactions: Motion Sickness Type of Cardiac Device: Permanent Pacemaker, AICD Device Placement Date:: 2011 Past Psychological History: Anxiety Smoking Status: Former smoker Past Alcohol Use History: None Reported Past Drug Use History: None Reported - Past Family History Father Additional Family Medical History / Comment(s): Father from old age. Daughter(s) Additional Family Medical History / Comment(s): Patient has 2 adult children with no major medical problems. Mother Family Medical History: CVA/TIA Additional Family Medical History / Comment(s): Mother from old age. Medications and Allergies Home Medications Medication Instructions Recorded Confirmed Type Citalopram Hydrobromide [CeleXA] 40 mg PO HS@2100 07/16/14 08/23/17 History Ranitidine HCl [Zantac] 150 mg PO BID 06/27/16 08/23/17 History Rivaroxaban [Xarelto] 20 mg PO DAILY 06/27/16 08/23/17 History Carvedilol [Coreg] 6.25 mg PO BID 06/09/17 08/23/17 History ALPRAZolam [Xanax] 0.5 mg PO HS 08/23/17 08/23/17 History Acetaminophen [Tylenol Arthritis] 1,300 mg PO Q12H PRN 08/23/17 08/23/17 History Aspirin EC [Ecotrin Low Dose] 81 mg PO DAILY 08/23/17 08/23/17 History Cholecalciferol [Vitamin D3] 1,000 unit PO DAILY 08/23/17 08/23/17 History Colchicine 0.6 mg PO DAILY 08/23/17 08/23/17 History Cyanocobalamin (Vitamin B-12) 1,000 mcg PO DAILY 08/23/17 08/23/17 History [Vitamin B-12] Losartan Potassium [Cozaar] 12.5 mg PO DAILY 08/23/17 08/23/17 History Meclizine [Antivert] 12.5 mg PO BID 08/23/17 08/23/17 History Melatonin 5 mg PO HS 08/23/17 08/23/17 History Ondansetron [Zofran] 4 mg PO Q6H PRN 08/23/17 08/23/17 History Potassium Chloride ER [K-Dur 20] 40 meq PO DAILY 08/23/17 08/23/17 History Sennosides-Docusate Sodium 1 tab PO BID 08/23/17 08/23/17 History [Senokot-S] Spironolactone 50 mg PO DAILY 08/23/17 08/23/17 History Torsemide [Demadex] 80 mg PO DAILY 08/23/17 08/23/17 History Allergies Allergy/AdvReac Type Severity Reaction Status Date / Time cephalexin monohydrate Allergy Rash/Hives Verified 06/20/17 08:38 [From Keflex] lisinopril Allergy Rash/Hives Verified 06/20/17 08:38 morphine Allergy Rash/Hives/ Verified 06/20/17 08:38 Sob warfarin [From Coumadin] Allergy Rash/Hives Verified 06/20/17 08:38 codeine AdvReac Nausea & Verified 06/20/17 08:38 Vomiting hydrocodone [From [place]] AdvReac Nausea & Verified 06/20/17 08:38 Vomiting Physical Exam Vitals: Vital Signs Temp Pulse Resp BP Pulse Ox 08/23/17 14:19 97 F L 69 18 132/73 98 08/23/17 13:09 74 18 129/63 97 08/23/17 11:00 97.9 F 85 16 136/74 95 Intake and Output 08/23/17 08/23/17 08/23/17 06:59 14:59 22:59 Other: Weight 73.028 kg - Constitutional General appearance: cooperative, no acute distress, obese - EENT Eyes: anicteric sclerae, PERRLA, normal appearance ENT: hearing grossly normal - Neck Neck: no lymphadenopathy, normal ROM, no other, no rigidity, no stridor, no thyromegaly - Respiratory Respiratory: bilateral diminished with rales, rhonchi - Cardiovascular Rhythm: regular Heart sounds: normal: S1, S2 Abnormal Heart Sounds: no systolic murmur, no diastolic murmur, no rub, no S3 Gallop, no S4 Gallop, no click, no other - Gastrointestinal General gastrointestinal: normal bowel sounds, soft - Integumentary Integumentary: no rash - Neurologic Neurologic: CNII-XII intact - Musculoskeletal Musculoskeletal: strength equally decreased bilaterally - Psychiatric Psychiatric: A&O x's 3 but appears to make conversation on richy topics, corrects herself after th inking for minute, turns on all the switches on the remote which is not her baseline Results CBC & Chem 7: 08/23/17 11:47 08/23/17 11:47 Labs: Abnormal Lab Results - Last 24 Hours (Table) 08/23/17 08/23/17 08/23/17 Range/Units 11:21 11:47 11:47 RBC 3.60 L (3.80-5.40) m/uL Hgb 10.9 L (11.4-16.0) gm/dL Hct 32.7 L (34.0-46.0) % Chloride 108 H (98-107) mmol/L BUN 26 H (7-17) mg/dL Creatinine 1.98 H (0.52-1.04) mg/dL POC Glucose (mg/dL) 106 H (75-99) mg/dL Total Protein 6.0 L (6.3-8.2) g/dL Albumin 3.3 L (3.5-5.0) g/dL Ur Leukocyte Esterase (Negative) Urine Bacteria (None) /hpf Hyaline Casts (0-2) /lpf Urine Mucus (None) /hpf U Benzodiazepines Scrn (NotDetected) 08/23/17 Range/Units 12:39 RBC (3.80-5.40) m/uL Hgb (11.4-16.0) gm/dL Hct (34.0-46.0) % Chloride (98-107) mmol/L BUN (7-17) mg/dL Creatinine (0.52-1.04) mg/dL POC Glucose (mg/dL) (75-99) mg/dL Total Protein (6.3-8.2) g/dL Albumin (3.5-5.0) g/dL Ur Leukocyte Esterase Small H (Negative) Urine Bacteria Rare H (None) /hpf Hyaline Casts 41 H (0-2) /lpf Urine Mucus Rare H (None) /hpf U Benzodiazepines Scrn Detected H (NotDetected) Thrombosis Risk Factor Assmnt - DVT/VTE Prophylaxis DVT/VTE Prophylaxis: Pharmacologic Prophylaxis ordered Assessment and Plan Plan: 1. Metabolic encephalopathy likely secondary to benzodiazepine. Hold Ativan hold meclizine. Avoid anticholinergic medication or sedating medications. No new medication added according to the patient Neurology consult with Dr. Tejeda. 2. Acute chest pain, likely noncardiac. EKG ordered suggestive of low voltage QRS with no significant abnormality as compared to previous EKGs. Troponin 2 negative. This consider cardiology evaluation if patient's chest pain persist. Chest x-ray positive for pulmonary congestion. Torsemide held for acute kidney injury will restart torsemide once creatinine stabilizes. Currently patient is not on any oxygen 3. Acute kidney injury over chronic kidney disease. Hold lisinopril torsemide and spironolactone. Status post 1 L of IV fluids in the ER. Patient does have pulmonary congestion will hold on further IV fluids. Repeat CMP tomorrow 4. Systolic congestive heart failure/ Ischemic cardiomyopathy status post AICD placement. Last ejection fraction 30-35% Chest x-ray concerning for pulmonary congestion. Patient currently on room air. We'll allow Lasix or torsemide in case patient is requiring oxygen. 5. History of paroxysmal atrial fibrillation with History of carotid stenosis status post endarterectomy. Continue Xarelto. Dose adjusted 6. Coronary artery disease with subsequent bypass grafting, watch for chest pain. Troponin 2 negative 6. Gastrointestinal prophylaxis. Continue Pepcid 7. DVT prophylaxis. Continue Xarelto. Patient will be admitted to the hospital for a minimum of 2 night stay. Discharge plan: PT OT consult with possible discharge to [facility]
[2017-08-23] MEDS ORDERED: MECLIZINE 12.5 MG TAB PO SCH (21:00)
[2017-08-23] MEDS: SENNOSIDES-DOCUSATE SODIUM 1 EACH TAB PO SCH (21:06)
[2017-08-23] MEDS: MELATONIN 5 MG TABLET PO SCH (21:06)
[2017-08-23] MEDS: CITALOPRAM HYDROBROMIDE 20 MG TAB PO SCH (21:06)
[2017-08-23] MEDS: guaiFENesin 600 MG TABLET.ER PO SCH (21:11)
[2017-08-23] MEDS ORDERED: HALOPERIDOL LACTATE 5 MG/ML 1 ML VIAL IM PRN (21:37)
[2017-08-24] MEDS: QUEtiapine 25 MG TAB PO SCH ×2 (01:38→20:36)
[2017-08-24 08:52] LABS: Albumin 2.9 g/dL (3.5-5.0); Calcium 8.9 mg/dL (8.4-10.2); Potassium 4.2 mmol/L (3.5-5.1); Total Bilirubin 0.4 mg/dL (0.2-1.3); Total Protein 5.5 g/dL (6.3-8.2)
[2017-08-24 08:55] LABS: Basophils # (A) 0.1 k/uL (0-0.2); Basophils % (A) 1 %; Eosinophils # (A) 0.2 k/uL (0-0.7); Eosinophils % (A) 4 %; HCT 31.9 % (34.0-46.0); HGB 10.1 gm/dL (11.4-16.0); Hypochromasia Slight; Lymphocytes # (A) 1.4 k/uL (1.0-4.8); Lymphocytes % (A) 29 %; MCH 29.5 pg (25.0-35.0); MCHC 31.6 g/dL (31.0-37.0); MCV 93.2 fL (80.0-100.0); Mean Platelet Volume 7.5; Monocytes # (A) 0.4 k/uL (0-1.0); Monocytes % (A) 9 %; Neutrophils # (A) 2.5 k/uL (1.3-7.7); Neutrophils % (A) 53 %; Platelet Count 246 k/uL (150-450); RBC 3.42 m/uL (3.80-5.40); RDW 14.6 % (11.5-15.5); WBC 4.7 k/uL (3.8-10.6)
[2017-08-24] MEDS: ASPIRIN 81 MG PO SCH (09:00)
[2017-08-24] MEDS: CARVEDILOL 6.25 MG TAB PO SCH ×2 (09:00→19:09)
[2017-08-24] MEDS: FAMOTIDINE 20 MG TAB PO SCH (09:00)
[2017-08-24] MEDS: guaiFENesin 600 MG TABLET.ER PO SCH ×2 (09:00→20:36)
[2017-08-24] MEDS: RIVAROXABAN 15 MG TAB PO SCH (09:01)
[2017-08-24] MEDS: SENNOSIDES-DOCUSATE SODIUM 1 EACH TAB PO SCH ×2 (09:02→20:36)
[2017-08-24] MEDS: TORSEMIDE 20 MG TAB PO SCH (13:48)
[2017-08-24] MEDS: POTASSIUM CHLORIDE ER 20 MEQ TAB.ER PO SCH (13:48)
--- NOTE | 2017-08-24 14:57 | P.PN ---
Subjective Progress Note Date: 08/24/17 This is a 71-year-old female. Her primary care physician is Dr. Basil Crowell. She has a past medical history of hypotension, gastroesophageal reflux disease, coronary artery disease, carotid stenosis and ischemic cardiomyopathy status post AICD, gout, anxiety and depression. She was recently hospitalized on June 08 following a fall secondary to dizziness with orthostatic changes ruled out. She ended up having a left radial fracture and left pelvic fracture. She was seen by orthopedics and they recommended splint and sling to the left arm and toe-touch weightbearing on the left lower extremity. Patient was again admitted on June 20 with confusion likely secondary to tramadol. She did present with history of passing out. AICD interrogation was done during the admission and found to have normal service function. Orthostatics were negative during the admission. Neurology saw the patient during that admission and conducted EEG which suggested slowing but no evidence of epileptiform discharges. Patient was discharged to [facility] for rehab. Patient is brought in today with altered mental status that started last night according to the . According to the patient was not at her baseline as she is oriented 2 at baseline. Patient states she was just discharged from [facility] 2 days ago. On evaluation, patient is able to tell her name, month and year and also the president but does seems to be confused. She does also complains of shortness of breath and chest pain that started in the evening. Troponin 1 is negative. EKG did not show any ST or T-wave abnormality. Chest x-ray was done that suggested increase in central vascularity and interstitial concerning for interstitial edema. Patient did receive a liter of IV fluid and fluids were running at 50 mL/h which was stopped. CT head was done negative for any acute abnormality. Creatinine is 1.98 slightly elevated from baseline. BNP 1380. Urine drug screen positive for benzodiazepine which is held. Patient takes Ativan at bedtime at home. Torsemide, lisinopril, spironolactone held for concern of increased creatinine. Monitor CMP tomorrow. Neurology consulted for change in mental status. 08/24. Patient examined bedside. Is alert and oriented 2 which appears to be patient's baseline. Last night patient had an episode of confusion where she was found standing in the bed. Seroquel was initiated last night and patient slept better. Patient evaluated by physical therapy and recommended subacute rehab. Creatinine improved from 1.90-1.2 to. Troponin 3 negative. Patient denies any chest pain, shortness of breath, nausea vomiting or abdominal pain. Patient states that she uses a pillbox which might have old medication including Ativan as she discontinued it in her previous discharge. Objective - Vital Signs Vital signs: Vital Signs Temp 98.0 F 08/24/17 07:00 Pulse 81 08/24/17 07:00 Resp 18 08/24/17 07:00 BP 122/68 08/24/17 07:00 Pulse Ox 95 08/24/17 07:00 Intake & Output 08/23/17 08/24/17 08/24/17 18:59 06:59 18:59 Intake Total 600 200 Balance 600 200 Weight 73.028 kg 76 kg Intake: Oral 600 200 Other: Voiding Method Bedside Commode # Voids 2 - Exam - Constitutional General appearance: cooperative, no acute distress, obese - EENT Eyes: anicteric sclerae, PERRLA, normal appearance ENT: hearing grossly normal - Neck Neck: no lymphadenopathy, normal ROM, no other, no rigidity, no stridor, no thyromegaly - Respiratory Respiratory: bilateral diminished with rales, rhonchi, improved - Cardiovascular Rhythm: regular Heart sounds: normal: S1, S2 Abnormal Heart Sounds: no systolic murmur, no diastolic murmur, no rub, no S3 Gallop, no S4 Gallop, no click, no other - Gastrointestinal General gastrointestinal: normal bowel sounds, soft - Integumentary Integumentary: no rash - Neurologic Neurologic: CNII-XII intact - Musculoskeletal Musculoskeletal: strength equally decreased bilaterally - Psychiatric Psychiatric: A&O x's 2 , close to baseline - Labs CBC & Chem 7: 08/24/17 07:26 08/24/17 07:26 Labs: Abnormal Lab Results - Last 24 Hours (Table) 08/24/17 08/24/17 Range/Units 07:26 07:26 RBC 3.42 L (3.80-5.40) m/uL Hgb 10.1 L (11.4-16.0) gm/dL Hct 31.9 L (34.0-46.0) % Chloride 114 H (98-107) mmol/L BUN 19 H (7-17) mg/dL Creatinine 1.22 H (0.52-1.04) mg/dL Total Protein 5.5 L (6.3-8.2) g/dL Albumin 2.9 L (3.5-5.0) g/dL Assessment and Plan Plan: 1. Metabolic encephalopathy likely secondary to benzodiazepine / acute delirium Improved since yesterday. Hold Ativan hold meclizine. Avoid anticholinergic medication or sedating medications. Initiated on Senecal with improvement in mentation No new medication added according to the patient Neurology consult with Dr. Tejeda. 2. Acute chest pain, likely noncardiac. EKG ordered suggestive of low voltage QRS with no significant abnormality as compared to previous EKGs. Troponin 2 negative. This consider cardiology evaluation if patient's chest pain persist. Chest x-ray positive for pulmonary congestion. Torsemide restarted as patient currently requiring 2 L of oxygen 3. Acute kidney injury over chronic kidney disease. Hold lisinopril and spironolactone. Status post 1 L of IV fluids in the ER. Patient does have pulmonary congestion will hold on further IV fluids. Creatinine improved to 1.2 to 4. Systolic congestive heart failure/ Ischemic cardiomyopathy status post AICD placement. Last ejection fraction 30-35% Chest x-ray concerning for pulmonary congestion. Patient currently on room air. 5. History of paroxysmal atrial fibrillation with History of carotid stenosis status post endarterectomy. Continue Xarelto. Dose adjusted 6. Coronary artery disease with subsequent bypass grafting, watch for chest pain. Troponin 2 negative 6. Gastrointestinal prophylaxis. Continue Pepcid 7. DVT prophylaxis. Continue Xarelto. 8.acute hypoxic respiratory failure likely secondary to pulmonary edema from congestive heart failure - currently requiring 3 L of oxygenation. Start patient back on torsemide which will help with reducing oxygen requirement will follow tomorrow Discharge plan: discharge to [facility]/ [facility]
--- NOTE | 2017-08-24 19:23 | XR ---
EXAMINATION TYPE: XR chest 2V DATE OF EXAM: 08/24/2017 COMPARISON: 08/23/2017 HISTORY: Shortness of breath TECHNIQUE: Frontal and lateral views of the chest are obtained. FINDINGS: Pulmonary hyperinflation and increase of anterior posterior diameter on the lateral view r epresenting underlying COPD. There is no focal air space opacity, pleural effusion, or pneumothorax s een. The cardiac silhouette size is enlarged with multilead left-sided cardiac device. The osseous structures are intact. There is diffuse osseous demineralization. IMPRESSION: No acute cardiopulmonary process. Radiographic sequela of COPD.
[2017-08-24] MEDS: IPRATROPIUM-ALBUTEROL 3 ML NEB INHALATION PRN (19:48)
[2017-08-24] MEDS: MELATONIN 5 MG TABLET PO SCH (20:36)
[2017-08-24] MEDS: CITALOPRAM HYDROBROMIDE 20 MG TAB PO SCH (20:36)
--- NOTE | 2017-08-25 08:30 | CONS ---
CONSULTATION DATE OF CONSULTATION: 08/24/2017. CHIEF COMPLAINT: Altered mental status. HISTORY OF PRESENT ILLNESS: The patient is a pleasant 72-year-old female, who is being evaluated today on 08/24/2017 by the neurology service per the request of Dr. Mccullough for altered mental status. According to the chart, the patient's noticed that she was somewhat confused late last night and when she woke up she was somewhat disoriented. She did not complain of any chest pain, shortness of breath, or headache. The patient was recently discharged from [facility] after she was there for a few weeks for rehab. A chest x-ray was done in the emergency room, which showed evidence of interstitial edema. Her basic metabolic profile showed renal insufficiency with a BUN of 26 and creatinine of 1.98. Her CBC showed anemia with a hemoglobin of 10.1. Her cardiac enzymes and urinalysis were normal. Her urine drug screen was positive for benzodiazepine. She does take a Xanax at bedtime to help her sleep. I did review her CT scan of the brain which showed no acute abnormalities. There was generalized atrophy, small-vessel ischemic changes, and a 14 mm calcified meningeal mass in the left frontal region, consistent with a meningioma, and unchanged when compared to her 06/20/2017 study. At the time of my evaluation, the patient appears to be at her baseline as she is oriented x3. PAST MEDICAL HISTORY: Atrial fibrillation, history of melanoma, coronary artery disease, gastroesophageal reflux disease, psoriasis, cardiomyopathy, gout, pacemaker placement, history of hysterectomy, history of anxiety disorder. SOCIAL HISTORY: The patient is a former smoker. There is no history of any alcohol or drug use. HOME MEDICATIONS: Reviewed in the chart. ALLERGIES: KEFLEX, LISINOPRIL, MORPHINE, COUMADIN, CODEINE, NORCO. REVIEW OF SYSTEM: As mentioned above and otherwise negative. PHYSICAL EXAM: Vital signs show a temperature of 98, pulse 81, respiration 18, blood pressure 122/68. GENERAL APPEARANCE: The patient is a well-developed, elderly female, who appears to be in no acute distress. HEENT: Normocephalic, atraumatic, no facial asymmetry is seen. NECK: Supple with no masses felt. CARDIOVASCULAR: Regular rate and rhythm. ABDOMEN: Nontender, nondistended. Extremities showed no edema or clubbing. NEUROLOGICAL EXAM: The patient is alert and oriented x3. Speech and language are normal. Strength is full in all 4 extremities. Sensory exam was normal to light touch in all 4 extremities. No facial asymmetry is seen on cranial nerve testing. IMPRESSION: 1. Altered mental status. 2. Acute metabolic encephalopathy. 3. Renal insufficiency. 4. Meningioma. 5. Anemia. 6. Medication adverse effect with benzodiazepine. RECOMMENDATION: The patient's altered mental status appears to be improving as she is oriented x3 at this time. The etiology is likely multifactorial as she likely is no longer tolerating her nightly dose of Xanax. This, alongside her renal insufficiency, likely exacerbated her altered mental status. I will discontinue all benzodiazepines at this time and she should not restart this after her discharge. Continue monitoring her renal status and I do recommend further management for this. An EEG has been ordered. As for her CT scan of the brain findings, this is unchanged when compared to her study on 06/20/2017 and there is no concern for any malignant neoplasm. Continue the rest of your current workup and management. I will continue to follow with you. Further recommendations to follow. Thank you for allowing me to participate in the care of your patient. If you have any questions, please feel free to contact me. MMODL / IJN: [id number] /
[2017-08-25] MEDS: CARVEDILOL 6.25 MG TAB PO SCH ×2 (09:03→17:30)
[2017-08-25] MEDS: ASPIRIN 81 MG PO SCH (09:04)
[2017-08-25] MEDS: FAMOTIDINE 20 MG TAB PO SCH (09:04)
[2017-08-25] MEDS: COLCHICINE 0.6 MG TAB PO SCH (09:04)
[2017-08-25] MEDS: CYANOCOBALAMIN 500 MCG TAB PO SCH (09:04)
[2017-08-25] MEDS: SENNOSIDES-DOCUSATE SODIUM 1 EACH TAB PO SCH ×2 (09:05→20:26)
[2017-08-25] MEDS: POTASSIUM CHLORIDE ER 20 MEQ TAB.ER PO SCH (09:05)
[2017-08-25] MEDS: guaiFENesin 600 MG TABLET.ER PO SCH ×2 (09:05→20:26)
[2017-08-25] MEDS: RIVAROXABAN 15 MG TAB PO SCH (09:05)
[2017-08-25] MEDS: TORSEMIDE 20 MG TAB PO SCH (09:06)
[2017-08-25 09:11] LABS: Basophils # (A) 0.1 k/uL (0-0.2); Basophils % (A) 1 %; Eosinophils # (A) 0.2 k/uL (0-0.7); Eosinophils % (A) 4 %; HCT 35.5 % (34.0-46.0); HGB 11.1 gm/dL (11.4-16.0); Hypochromasia Marked; Lymphocytes # (A) 1.3 k/uL (1.0-4.8); Lymphocytes % (A) 27 %; MCH 29.6 pg (25.0-35.0); MCHC 31.2 g/dL (31.0-37.0); MCV 95.1 fL (80.0-100.0); Mean Platelet Volume 7.3; Monocytes # (A) 0.4 k/uL (0-1.0); Monocytes % (A) 10 %; Neutrophils # (A) 2.5 k/uL (1.3-7.7); Neutrophils % (A) 55 %; Platelet Count 260 k/uL (150-450); RBC 3.74 m/uL (3.80-5.40); RDW 14.6 % (11.5-15.5); WBC 4.7 k/uL (3.8-10.6)
[2017-08-25 09:52] LABS: Albumin 3.4 g/dL (3.5-5.0); Calcium 9.5 mg/dL (8.4-10.2); Potassium 4.4 mmol/L (3.5-5.1); Total Bilirubin 0.5 mg/dL (0.2-1.3); Total Protein 6.3 g/dL (6.3-8.2)
[2017-08-25] MEDS: SPIRONOLACTONE 25 MG TAB PO SCH (13:07)
--- NOTE | 2017-08-25 15:20 | P.PN ---
Subjective Progress Note Date: 08/25/17 Principal diagnosis: Altered mental status Is a pleasant 72-year-old female continuing to be evaluated by the neurology service for altered mental status. He was recently discharged from [facility] where she was there for a few weeks after a fall that she says included a small pelvic fracture. Her noticed that she had awoken somewhat disoriented. She describes it more as dizzy. She denies significant headache, recent illness or vertigo. Recall that his CT of the brain showed no acute intracranial abnormalities. Her was a 14 mm calcified meningeal mass consistent with a meningioma. This is unchanged from her previous study. Continue use to be alert and oriented 3. Was felt that she was experiencing some metabolic encephalopathy. This would be multifactorial given her renal insufficiency, use of benzodiazepines, and cardiac history. She is also having some aspiratory problems requiring oxygen via nasal cannula. An EEG has been performed Objective - Vital Signs Vital signs: Vital Signs Temp 98.0 F 08/25/17 07:00 Pulse 83 08/25/17 07:00 Resp 17 08/25/17 07:00 BP 132/73 08/25/17 07:00 Pulse Ox 94 L 08/25/17 07:00 Intake & Output 08/24/17 08/25/17 08/25/17 18:59 06:59 18:59 Intake Total 333 302 9190 Balance 716 461 3246 Weight 76 kg Intake: Oral 949 513 4689 Other: Voiding Method Bedside Commode Toilet Toilet Bedside Commode Bedside Commode # Voids 3 2 3 # Bowel Movements 1 - Constitutional General appearance: Present: average body habitus, cooperative, no acute distress - EENT Eyes: Present: PERRLA. Absent: abnormal pupil, ptosis ENT: Present: hearing grossly normal - Neck Neck: Present: normal ROM. Absent: rigidity - Respiratory Respiratory: negative: prolonged expiration, prolonged inspiration - Cardiovascular Rhythm: regular - Gastrointestinal General gastrointestinal: Absent: distended, tenderness - Neurologic Neurologic Comment(s): She is alert awake and oriented 3. Speech-language are normal. No facial asymmetry. There is no lateralizing weakness. There is no sensory deficit in any extremity. No tremors or seizure-like activities are seen. - Labs CBC & Chem 7: 08/25/17 08:36 08/25/17 08:36 Labs: Abnormal Lab Results - Last 24 Hours (Table) 08/25/17 08/25/17 Range/Units 08:36 08:36 RBC 3.74 L (3.80-5.40) m/uL Hgb 11.1 L (11.4-16.0) gm/dL Chloride 114 H (98-107) mmol/L Carbon Dioxide 20 L (22-30) mmol/L Albumin 3.4 L (3.5-5.0) g/dL Assessment and Plan (1) Altered mental status Current Visit: Yes Status: Resolved Code(s): R41.82 - ALTERED MENTAL STATUS , UNSPECIFIED SNOMED Code(s): 422839664 (2) Acute encephalopathy Current Visit: No Status: Suspected Code(s): G93.40 - ENCEPHALOPATHY, UNSPECIFIED SNOMED Code(s): 88743606 (3) Acute renal insufficiency Current Visit: No Status: Acute Code(s): N28.9 - DISORDER OF KIDNEY AND URETER, UNSPECIFIED SNOMED Code(s): 373057233 (4) History of implantable cardioverter-defibrillator (ICD) placement Current Visit: No Status: Chronic Code(s): Z95.810 - PRESENCE OF AUTOMATIC ( IMPLANTABLE) CARDIAC DEFIBRILLATOR SNOMED Code(s): 120776086 (5) Ischemic cardiomyopathy Current Visit: No Status: Chronic Code(s): I25.5 - ISCHEMIC CARDIOMYOPATHY SNOMED Code(s): 201860552 Plan: The patient's mental status continues to improve. Again she likely had some multifactorial acute encephalopathy. Nighttime benzodiazepine has been discontinued. Continue monitoring renal status. Doubt any cardiac etiology. An EEG has been performed, an barring any unforeseen abnormalities she would be cleared from a neurological standpoint. I have performed a history and physical on the above patient. I have reviewed the above note, and agree.
[2017-08-25] MEDS: IPRATROPIUM-ALBUTEROL 3 ML NEB INHALATION PRN (19:36)
--- NOTE | 2017-08-25 19:45 | EEG ---
ELECTROENCEPHALOGRAM REPORT DATE OF SERVICE: 08/25/2017 REASON FOR TESTING: Altered mental status. DESCRIPTION OF THE PROCEDURE: This EEG was performed using a 21-channel digital electroencephalograph, following international 10-20 system. DESCRIPTION OF THE RECORDING: From the beginning of the tracing, and with the patient's eyes closed, the background rhythm was mostly consisting of 8 Hz alpha frequency in the posterior occipital leads. No obvious asymmetry is seen. Frequent muscle artifacts and occasional movement artifacts are seen. Photic stimulation was performed with a minimal driving response seen. No pathological waves were elicited. Hyperventilation was not performed. The patient remains awake throughout the tracing. No epileptiform discharges were seen. Her EKG lead showed a regular rate and rhythm. INTERPRETATION: This awake EEG can be considered within normal limits. There was no asymmetry seen. No epileptiform discharges were noticed. The absence of epileptiform discharges does not rule out the diagnosis of epilepsy; therefore clinical correlation is recommended. ELIZABETH / RICK: [id number] /
[2017-08-25] MEDS: QUEtiapine 25 MG TAB PO SCH (20:26)
[2017-08-25] MEDS: MELATONIN 5 MG TABLET PO SCH (20:26)
[2017-08-25] MEDS: CITALOPRAM HYDROBROMIDE 20 MG TAB PO SCH (20:26)
[2017-08-26] MEDS: CYANOCOBALAMIN 500 MCG TAB PO SCH (08:10)
[2017-08-26] MEDS: FAMOTIDINE 20 MG TAB PO SCH (08:10)
[2017-08-26] MEDS: CARVEDILOL 6.25 MG TAB PO SCH (08:10)
[2017-08-26] MEDS: ASPIRIN 81 MG PO SCH (08:10)
[2017-08-26] MEDS: COLCHICINE 0.6 MG TAB PO SCH (08:10)
[2017-08-26] MEDS: RIVAROXABAN 15 MG TAB PO SCH (08:11)
[2017-08-26] MEDS: POTASSIUM CHLORIDE ER 20 MEQ TAB.ER PO SCH (08:11)
[2017-08-26] MEDS: SPIRONOLACTONE 25 MG TAB PO SCH (08:11)
[2017-08-26] MEDS: guaiFENesin 600 MG TABLET.ER PO SCH (08:11)
[2017-08-26] MEDS: SENNOSIDES-DOCUSATE SODIUM 1 EACH TAB PO SCH (08:11)
[2017-08-26] MEDS: TORSEMIDE 20 MG TAB PO SCH (08:12)
[2017-08-26 08:45] LABS: Albumin 3.8 g/dL (3.5-5.0); Potassium 4.2 mmol/L (3.5-5.1); Total Bilirubin 0.5 mg/dL (0.2-1.3); Total Protein 6.7 g/dL (6.3-8.2)
[2017-08-26 09:09] LABS: HCT 36.4 % (34.0-46.0); HGB 12.1 gm/dL (11.4-16.0); MCH 30.4 pg (25.0-35.0); MCHC 33.3 g/dL (31.0-37.0); MCV 91.4 fL (80.0-100.0); Mean Platelet Volume 7.1; Platelet Count 298 k/uL (150-450); RBC 3.98 m/uL (3.80-5.40); RDW 14.7 % (11.5-15.5); WBC 7.1 k/uL (3.8-10.6)
[2017-08-26 09:55] LABS: Band Neutrophils % 1 %; Basophils # (M) 0.14 k/uL (0-0.2); Eosinophils # (M) 0.14 k/uL (0-0.7); Lymphocytes # (M) 1.49 k/uL (1.0-4.8); Monocytes # (M) 0.43 k/uL (0-1.0); Neutrophils % (M) 68 %; Nucleated Red Blood Cells 0 /100 WBC (0-0); Total Cells Counted 100
[2017-08-26 09:56] LABS: Poikilocytosis (M) Present
--- NOTE | 2017-08-26 11:57 | P.PN ---
Subjective Progress Note Date: 08/25/17 This is a 71-year-old female. Her primary care physician is Dr. Basil Crowell. She has a past medical history of hypotension, gastroesophageal reflux disease, coronary artery disease, carotid stenosis and ischemic cardiomyopathy status post AICD, gout, anxiety and depression. She was recently hospitalized on June 08 following a fall secondary to dizziness with orthostatic changes ruled out. She ended up having a left radial fracture and left pelvic fracture. She was seen by orthopedics and they recommended splint and sling to the left arm and toe-touch weightbearing on the left lower extremity. Patient was again admitted on June 20 with confusion likely secondary to tramadol. She did present with history of passing out. AICD interrogation was done during the admission and found to have normal service function. Orthostatics were negative during the admission. Neurology saw the patient during that admission and conducted EEG which suggested slowing but no evidence of epileptiform discharges. Patient was discharged to [facility] for rehab. Patient is brought in today with altered mental status that started last night according to the . According to the patient was not at her baseline as she is oriented 2 at baseline. Patient states she was just discharged from [facility] 2 days ago. On evaluation, patient is able to tell her name, month and year and also the president but does seems to be confused. She does also complains of shortness of breath and chest pain that started in the evening. Troponin 1 is negative. EKG did not show any ST or T-wave abnormality. Chest x-ray was done that suggested increase in central vascularity and interstitial concerning for interstitial edema. Patient did receive a liter of IV fluid and fluids were running at 50 mL/h which was stopped. CT head was done negative for any acute abnormality. Creatinine is 1.98 slightly elevated from baseline. BNP 1380. Urine drug screen positive for benzodiazepine which is held. Patient takes Ativan at bedtime at home. Torsemide, lisinopril, spironolactone held for concern of increased creatinine. Monitor CMP tomorrow. Neurology consulted for change in mental status. 08/24. Patient examined bedside. Is alert and oriented 2 which appears to be patient's baseline. Last night patient had an episode of confusion where she was found standing in the bed. Seroquel was initiated last night and patient slept better. Patient evaluated by physical therapy and recommended subacute rehab. Creatinine improved from 1.90-1.2 to. Troponin 3 negative. Patient denies any chest pain, shortness of breath, nausea vomiting or abdominal pain. Patient states that she uses a pillbox which might have old medication including Ativan as she discontinued it in her previous discharge. 08/25: Patient is having EEG today. Patient states that she slept throughout the night. Nursing passes on the patient becomes very suspicious and thinking that somebody is cannot kill her and a baby by the afternoon. Patient has been followed by Dr. Adler. With recommendations to discontinue benzodiazepines which was done on admission. Plan is for patient to go to [facility] for subacute rehab. Anticipate that she will be ready for discharge by tomorrow. Patient remains pleasantly confused. Her breathing status is stable and she is pulse oxing 97% on 3 L nasal cannula. Objective - Vital Signs Vital signs: Vital Signs Temp 98.0 F 08/25/17 07:00 Pulse 83 08/25/17 07:00 Resp 17 08/25/17 07:00 BP 132/73 08/25/17 07:00 Pulse Ox 94 L 08/25/17 07:00 Intake & Output 08/24/17 08/25/17 08/25/17 18:59 06:59 18:59 Intake Total 200 400 200 Balance 200 400 200 Weight 76 kg Intake: Oral 200 400 200 Other: Voiding Method Bedside Commode Toilet Toilet Bedside Commode Bedside Commode # Voids 3 2 # Bowel Movements 1 - Exam - Constitutional General appearance: cooperative, no acute distress, obese - EENT Eyes: anicteric sclerae, PERRLA, normal appearance ENT: hearing grossly normal - Neck Neck: no lymphadenopathy, normal ROM, no other, no rigidity, no stridor, no thyromegaly - Respiratory Respiratory: bilateral diminished with rales, rhonchi, improved - Cardiovascular Rhythm: regular Heart sounds: normal: S1, S2 Abnormal Heart Sounds: no systolic murmur, no diastolic murmur, no rub, no S3 Gallop, no S4 Gallop, no click, no other - Gastrointestinal General gastrointestinal: normal bowel sounds, soft - Integumentary Integumentary: no rash - Neurologic Neurologic: CNII-XII intact - Musculoskeletal Musculoskeletal: strength equally decreased bilaterally - Psychiatric Psychiatric: A&O x's 2 , close to baseline - Labs CBC & Chem 7: 08/26/17 07:23 08/26/17 07:23 Labs: Abnormal Lab Results - Last 24 Hours (Table) 08/25/17 08/25/17 Range/Units 08:36 08:36 RBC 3.74 L (3.80-5.40) m/uL Hgb 11.1 L (11.4-16.0) gm/dL Chloride 114 H (98-107) mmol/L Carbon Dioxide 20 L (22-30) mmol/L Albumin 3.4 L (3.5-5.0) g/dL Assessment and Plan Plan: 1. Metabolic encephalopathy likely secondary to benzodiazepine / acute delirium Improved since yesterday. Hold Ativan hold meclizine. Avoid anticholinergic medication or sedating medications. Initiated on Seroquel with improvement in mentation No new medication added according to the patient Neurology consult with Dr. Adler. EEG pending 2. Acute chest pain, likely noncardiac. EKG ordered suggestive of low voltage QRS with no significant abnormality as compared to previous EKGs. Troponin 2 negative. This consider cardiology evaluation if patient's chest pain persist. Chest x-ray positive for pulmonary congestion. Torsemide restarted as patient currently requiring 2 L of oxygen 3. Acute kidney injury over chronic kidney disease. Hold lisinopril and spironolactone. Status post 1 L of IV fluids in the ER. Patient does have pulmonary congestion will hold on further IV fluids. Creatinine improved to 1.2 to 4. Chronic Systolic congestive heart failure/ Ischemic cardiomyopathy status post AICD placement. Last ejection fraction 30-35% Chest x-ray concerning for pulmonary congestion. Patient currently on room air. 5. History of paroxysmal atrial fibrillation with History of carotid stenosis status post endarterectomy. Continue Xarelto. Dose adjusted 6. Coronary artery disease with subsequent bypass grafting, watch for chest pain. Troponin 2 negative 6. Gastrointestinal prophylaxis. Continue Pepcid 7. DVT prophylaxis. Continue Xarelto. 8.acute hypoxic respiratory failure likely secondary to pulmonary edema from congestive heart failure - currently requiring 3 L of oxygenation. Start patient back on torsemide which will help with reducing oxygen requirement will follow tomorrow Discharge plan: [facility] tomorrow Impression and plan of care have been directed as dictated by the signing physician. Nancy Olivera nurse practitioner acting as scribe for signing physician.
--- NOTE | 2017-08-26 12:04 | P.DS ---
Providers Date of admission: 08/23/17 13:14 Expected date of discharge: 08/26/17 Attending physician: Ursula Mccullough Consults: 08/23/17 20:25 Consult Physician Routine Consulting Provider: Justo Adler Consult Reason/Comments: Change in mental status Do you want consulting provider notified?: Yes Primary care physician: [facility] Course: This is a 71-year-old female. Her primary care physician is Dr. Basil Crowell. She has a past medical history of hypotension, gastroesophageal reflux disease, coronary artery disease, carotid stenosis and ischemic cardiomyopathy status post AICD, gout, anxiety and depression. She was recently hospitalized on June 08 following a fall secondary to dizziness with orthostatic changes ruled out. She ended up having a left radial fracture and left pelvic fracture. She was seen by orthopedics and they recommended splint and sling to the left arm and toe-touch weightbearing on the left lower extremity. Patient was again admitted on June 20 with confusion likely secondary to tramadol. She did present with history of passing out. AICD interrogation was done during the admission and found to have normal service function. Orthostatics were negative during the admission. Neurology saw the patient during that admission and conducted EEG which suggested slowing but no evidence of epileptiform discharges. Patient was discharged to [facility] for rehab. Patient is brought in today with altered mental status that started last night according to the . According to the patient was not at her baseline as she is oriented 2 at baseline. Patient states she was just discharged from [facility] 2 days ago. On evaluation, patient is able to tell her name, month and year and also the president but does seems to be confused. She does also complains of shortness of breath and chest pain that started in the evening. Troponin 1 is negative. EKG did not show any ST or T-wave abnormality. Chest x-ray was done that suggested increase in central vascularity and interstitial concerning for interstitial edema. Patient did receive a liter of IV fluid and fluids were running at 50 mL/h which was stopped. CT head was done negative for any acute abnormality. Creatinine is 1.98 slightly elevated from baseline. BNP 1380. Urine drug screen positive for benzodiazepine which is held. Patient takes Ativan at bedtime at home. Torsemide, lisinopril, spironolactone held for concern of increased creatinine. Monitor CMP tomorrow. Neurology consulted for change in mental status. 08/24. Patient examined bedside. Is alert and oriented 2 which appears to be patient's baseline. Last night patient had an episode of confusion where she was found standing in the bed. Seroquel was initiated last night and patient slept better. Patient evaluated by physical therapy and recommended subacute rehab. Creatinine improved from 1.90-1.2 to. Troponin 3 negative. Patient denies any chest pain, shortness of breath, nausea vomiting or abdominal pain. Patient states that she uses a pillbox which might have old medication including Ativan as she discontinued it in her previous discharge. 08/25: Patient is having EEG today. Patient states that she slept throughout the night. Nursing passes on the patient becomes very suspicious and thinking that somebody is cannot kill her and a baby by the afternoon. Patient has been followed by Dr. Adler. With recommendations to discontinue benzodiazepines which was done on admission. Plan is for patient to go to [facility] for subacute rehab. Anticipate that she will be ready for discharge by tomorrow. Patient remains pleasantly confused. Her breathing status is stable and she is pulse oxing 97% on 3 L nasal cannula. 08/26: Patient is tolerating Seroquel well. She is able to answer most questions appropriately. Mild confusion is still noted but this appears to be her baseline EEG did not show any acute findings. Patient is on oxygen and we will ask for room air with ambulation which came back at 95%. No need for any further oxygen therapy. Patient has been afebrile. White count and hemoglobin normal. Electrolytes within normal limits. Creatinine is 1.2 and patient has been running between 1.0 and 1.2. Patient will be discharged to [facility] today in stable condition once insurance authorization is obtained. Discharge diagnoses: 1. Metabolic encephalopathy likely secondary to benzodiazepine with acute delirium 2. Acute chest pain, noncardiac 3. Acute kidney injury over chronic kidney disease 3. 4. Chronic Systolic heart failure and Ischemic cardiomyopathy status post AICD placement. 5. History of paroxysmal atrial fibrillation with History of carotid stenosis status post endarterectomy. 6. Coronary artery disease with subsequent bypass grafting 8. Acute hypoxic respiratory distress requiring nasal oxygen secondary to secondary to pulmonary edema from acute systolic heart failure Discharge plan: [facility] Impression and plan of care have been directed as dictated by the signing physician. Nancy Olivera nurse practitioner acting as scribe for signing physician. Plan - Discharge Summary Discharge Rx Participant: No New Discharge Prescriptions: New QUEtiapine [SEROquel] 12.5 mg PO HS tab Continue Citalopram Hydrobromide [CeleXA] 40 mg PO HS@2100 Rivaroxaban [Xarelto] 20 mg PO DAILY Ranitidine HCl [Zantac] 150 mg PO BID Carvedilol [Coreg] 6.25 mg PO BID Spironolactone 50 mg PO DAILY Potassium Chloride ER [K-Dur 20] 40 meq PO DAILY Acetaminophen [Tylenol Arthritis] 1,300 mg PO Q12H PRN PRN Reason: Pain Aspirin EC [Ecotrin Low Dose] 81 mg PO DAILY Colchicine 0.6 mg PO DAILY Cyanocobalamin (Vitamin B-12) [Vitamin B-12] 1,000 mcg PO DAILY Losartan Potassium [Cozaar] 12.5 mg PO DAILY Melatonin 5 mg PO HS Ondansetron [Zofran] 4 mg PO Q6H PRN PRN Reason: Nausea Sennosides-Docusate Sodium [Senokot-S] 1 tab PO BID Torsemide [Demadex] 80 mg PO DAILY Cholecalciferol [Vitamin D3] 1,000 unit PO DAILY Discontinued ALPRAZolam [Xanax] 0.5 mg PO HS Meclizine [Antivert] 12.5 mg PO BID Discharge Medication List Citalopram Hydrobromide [CeleXA] 40 mg PO HS@2100 07/16/14 [History] Ranitidine HCl [Zantac] 150 mg PO BID 06/27/16 [History] Rivaroxaban [Xarelto] 20 mg PO DAILY 06/27/16 [History] Carvedilol [Coreg] 6.25 mg PO BID 06/09/17 [History] Acetaminophen [Tylenol Arthritis] 1,300 mg PO Q12H PRN 08/23/17 [History] Aspirin EC [Ecotrin Low Dose] 81 mg PO DAILY 08/23/17 [History] Cholecalciferol [Vitamin D3] 1,000 unit PO DAILY 08/23/17 [History] Colchicine 0.6 mg PO DAILY 08/23/17 [History] Cyanocobalamin (Vitamin B-12) [Vitamin B-12] 1,000 mcg PO DAILY 08/23/17 [ History] Losartan Potassium [Cozaar] 12.5 mg PO DAILY 08/23/17 [History] Melatonin 5 mg PO HS 08/23/17 [History] Ondansetron [Zofran] 4 mg PO Q6H PRN 08/23/17 [History] Potassium Chloride ER [K-Dur 20] 40 meq PO DAILY 08/23/17 [History] Sennosides-Docusate Sodium [Senokot-S] 1 tab PO BID 08/23/17 [History] Spironolactone 50 mg PO DAILY 08/23/17 [History] Torsemide [Demadex] 80 mg PO DAILY 08/23/17 [History] QUEtiapine [SEROquel] 12.5 mg PO HS tab 08/26/17 [Rx] Follow up Appointment(s)/Referral(s): Basil Crowell DO [Primary Care Provider] - 1 Week Patient Instructions/Handouts: Pelvic Fracture (DC), Encephalopathy (DC) Activity/Diet/Wound Care/Special Instructions: Cardiac diet. Activity as tolerated, fall precautions.
[2017-08-26 14:37] VITALS: BP 135/90; PULSE 104; RESP 18; TEMP 97.1
== END 2017-08-26 16:59 | DRG 917 ==
LOC: EC 10:54 → 4MS4W 13:14
PROVIDERS: ADMIT Internal Medicine; ATTEND Internal Medicine
DX: T42.4X1A Poisoning by benzodiazepines, accidental (unintentional), initial encounter (principal); G92 Toxic encephalopathy; I50.23 Acute on chronic systolic (congestive) heart failure; N17.9 Acute kidney failure, unspecified; I48.0 Paroxysmal atrial fibrillation; D64.9 Anemia, unspecified; I25.5 Ischemic cardiomyopathy; I25.10 Atherosclerotic heart disease of native coronary artery without angina pectoris; D32.9 Benign neoplasm of meninges, unspecified; F41.9 Anxiety disorder, unspecified; I49.3 Ventricular premature depolarization; K21.9 Gastro-esophageal reflux disease without esophagitis; N18.3 Chronic kidney disease, stage 3 (moderate); R09.02 Hypoxemia; Z79.01 Long term (current) use of anticoagulants; Z79.899 Other long term (current) drug therapy; Z85.820 Personal history of malignant melanoma of skin; Z87.891 Personal history of nicotine dependence; Z90.710 Acquired absence of both cervix and uterus; Z95.810 Presence of automatic (implantable) cardiac defibrillator; Z88.1 Allergy status to other antibiotic agents; Z88.5 Allergy status to narcotic agent; Z88.8 Allergy status to other drugs, medicaments and biological substances; Z79.82 Long term (current) use of aspirin; S52.92XD Unspecified fracture of left forearm, subsequent encounter for closed fracture with routine healing; S32.9XXD Fracture of unspecified parts of lumbosacral spine and pelvis, subsequent encounter for fracture with routine healing
CPT/HCPCS: 36415; 70450; 71046; 80053; 80306; 81001; 82550; 82553; 83735; 83880; 84484; 84550; 85025; 85610; 85730; 87086; 93005; 94640; 95816; 96360; 99285

== ENCOUNTER → 2017-11-04 | Outpatient (CLI) | payer MEDICARE ==
--- NOTE | 2017-11-04 16:04 | XR ---
EXAMINATION TYPE: XR chest 2V DATE OF EXAM: 11/04/2017 COMPARISON: 08/24/2017 HISTORY: Hemoptysis TECHNIQUE: Frontal and lateral views of the chest are obtained. FINDINGS: There is no focal air space opacity, pleural effusion, or pneumothorax seen. There is pul monary hyperinflation and biapical lucency with flattening of the left hemidiaphragm on the lateral i mage indicative of underlying COPD. Mildly elevated right hemidiaphragm is chronic. There is diffuse osseous demineralization seen with mild degenerative changes of the thoracic spine. Cardiomediastinal silhouette is mildly enlarged with multilead left-sided cardiac device noted. No new focal consolida tion, pleural effusion or pneumothorax. IMPRESSION: No acute cardiopulmonary process. Radiographic sequela of COPD.
== END | disposition home or self-care (01) ==
LOC: RADXRMAIN 15:26
PROVIDERS: ATTEND Family Medicine
DX: J44.9 Chronic obstructive pulmonary disease, unspecified (principal); I48.91 Unspecified atrial fibrillation
CPT/HCPCS: 71046

== ENCOUNTER 2018-01-12 16:16 | Observation (INO) | payer MEDICARE ==
[2018-01-12] MEDS ORDERED: SODIUM CHLORIDE 0.9% 1,000 ML IV STA (16:46)
--- NOTE | 2018-01-12 16:53 | ED ---
Chest Pain HPI - General Chief Complaint: Chest Pain Stated Complaint: Chest Pains Time Seen by Provider: 01/12/18 16:37 Source: patient Mode of arrival: wheelchair Limitations: no limitations - History of Present Illness Initial Comments: 72 years O female with a history of heart disease she status post defibrillator and pacemaker , has a history of firm carotid stenosis status post endarterectomy status post CABG and also has a cardiomyopathy had a chest pain off-and-on for last 2 weeks she is short-winded and it hurts when she takes a deep breath she said she has also heart and she gets really short winded. No headaches no stiff neck has chest pain has shortness of breath no abdominal pain no frequency urgency dysuria no symptoms of TIA or CVA - Related Data Home Medications Medication Instructions Recorded Confirmed Citalopram Hydrobromide [CeleXA] 40 mg PO HS@2100 07/16/14 01/12/18 Ranitidine HCl [Zantac] 150 mg PO BID 06/27/16 01/12/18 Rivaroxaban [Xarelto] 20 mg PO DAILY 06/27/16 01/12/18 Aspirin EC [Ecotrin Low Dose] 81 mg PO DAILY 08/23/17 01/12/18 Colchicine 0.6 mg PO DAILY 08/23/17 01/12/18 Melatonin 5 mg PO HS 08/23/17 01/12/18 Potassium Chloride ER [K-Dur 20] 40 meq PO DAILY 08/23/17 01/12/18 Sennosides-Docusate Sodium 1 tab PO BID 08/23/17 01/12/18 [Senokot-S] Spironolactone 50 mg PO DAILY 08/23/17 01/12/18 Torsemide [Demadex] 80 mg PO DAILY 08/23/17 01/12/18 ALPRAZolam [Xanax] 2 mg PO HS PRN 01/12/18 01/12/18 Allopurinol [Zyloprim] 100 mg PO DAILY 01/12/18 01/12/18 Allergies Allergy/AdvReac Type Severity Reaction Status Date / Time cephalexin monohydrate Allergy Rash/Hives Verified 01/12/18 16:52 [From Keflex] lisinopril Allergy Rash/Hives Verified 01/12/18 16:52 morphine Allergy Rash/Hives/ Verified 01/12/18 16:52 Sob warfarin [From Coumadin] Allergy Rash/Hives Verified 01/12/18 16:52 codeine AdvReac Nausea & Verified 01/12/18 16:52 Vomiting hydrocodone [From [place]] AdvReac Nausea & Verified 01/12/18 16:52 Vomiting Review of Systems ROS Statement: Those systems with pertinent positive or pertinent negative responses have been documented in the HPI. ROS Other: All systems not noted in ROS Statement are negative. 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 [place] 10/02/14 TO CHECK AICD Past Anesthesia/Blood Transfusion Reactions: Motion Sickness Type of Cardiac Device: Permanent Pacemaker, AICD Device Placement Date:: 2011 Past Psychological History: Anxiety Smoking Status: Former smoker Past Alcohol Use History: None Reported Past Drug Use History: None Reported - Past Family History Father Additional Family Medical History / Comment(s): Father from old age. Daughter(s) Additional Family Medical History / Comment(s): Patient has 2 adult children with no major medical problems. Mother Family Medical History: CVA/TIA Additional Family Medical History / Comment(s): Mother from old age. General Exam Limitations: no limitations Course Vital Signs 01/12/18 01/12/18 16:19 17:10 Temperature 97.4 F L Pulse Rate 77 Respiratory 18 18 Rate Blood Pressure 114/79 O2 Sat by Pulse 94 L Oximetry EKG is normal sinus ventricular rate 71 WA interval is 190 QRS duration is 110 QT/QTc is 460/440 review of this EKG reveals wide QRS complex no definitive ST elevation or ST depression noticed there are some artifacts in this EKG making it hard to interpret Disposition Clinical Impression: Chest pain Disposition: ADMITTED IP TO THIS HOSP Condition: Good Referrals: Socrates,Basil, DO [Primary Care Provider] - 1-2 days
[2018-01-12 17:15] LABS: Anisocytosis Slight; Basophils # (A) 0.1 k/uL (0-0.2); Basophils % (A) 1 %; Eosinophils # (A) 0.1 k/uL (0-0.7); Eosinophils % (A) 3 %; HCT 36.5 % (34.0-46.0); HGB 11.7 gm/dL (11.4-16.0); Lymphocytes # (A) 1.3 k/uL (1.0-4.8); Lymphocytes % (A) 29 %; MCH 27.1 pg (25.0-35.0); MCHC 32.1 g/dL (31.0-37.0); MCV 84.5 fL (80.0-100.0); Mean Platelet Volume 7.3; Monocytes # (A) 0.4 k/uL (0-1.0); Monocytes % (A) 9 %; Neutrophils # (A) 2.4 k/uL (1.3-7.7); Neutrophils % (A) 53 %; Platelet Count 258 k/uL (150-450); RBC 4.31 m/uL (3.80-5.40); RDW 16.3 % (11.5-15.5); WBC 4.5 k/uL (3.8-10.6)
[2018-01-12 17:31] LABS: D-Dimer 0.28 mg/L FEU (<0.60); INR 1.4 (<1.2); Partial Thromboplastin Time 36.3 sec (22.0-30.0); Prothrombin Time 12.9 sec (9.0-12.0)
[2018-01-12 17:32] LABS: Albumin 4.1 g/dL (3.5-5.0); Calcium 9.2 mg/dL (8.4-10.2); Magnesium 2.3 mg/dL (1.6-2.3); Potassium 4.1 mmol/L (3.5-5.1); Total Bilirubin 0.4 mg/dL (0.2-1.3); Total Protein 6.7 g/dL (6.3-8.2)
[2018-01-12 17:37] LABS: Creatine Kinase 49 U/L (30-135)
[2018-01-12 17:50] LABS: Creatine Kinase MB 0.6 ng/mL (0.0-2.4); Troponin I <0.012 ng/mL (0.000-0.034)
[2018-01-12] MEDS ORDERED: NITROGLYCERIN SL TABS 0.4 MG TAB SUBLINGUAL PRN (17:56)
[2018-01-12] MEDS ORDERED: ACETAMINOPHEN TAB 325 MG TAB PO PRN (17:56)
--- NOTE | 2018-01-12 18:06 | XR ---
EXAMINATION TYPE: XR chest 2V DATE OF EXAM: 01/12/2018 COMPARISON: 11/04/2017 HISTORY: Chest pain TECHNIQUE: Frontal and lateral views of the chest are obtained. FINDINGS: There is no heart failure. Heart is slightly enlarged. There is left axillary pacemaker wi th the lead tips in the right ventricle. Thoracic aorta is atheromatous. There is osteopenia. There a re small infiltrates at the lateral lung bases that appears new. IMPRESSION: Cardiomegaly. There are new small infiltrates at the lateral lung bases compared to old exam.
[2018-01-12] MEDS ORDERED: LEVOFLOXACIN 500MG-D5W PMX 500 MG in DEXTROSE/WATER 1 100ML.BAG IVPB STA (18:11)
[2018-01-12] MEDS ORDERED: ALPRAZolam 1 MG TAB PO PRN (18:11)
[2018-01-12] MEDS ORDERED: diphenhydrAMINE 25 MG CAP PO PRN (19:56)
[2018-01-12] MEDS ORDERED: CITALOPRAM HYDROBROMIDE 20 MG TAB PO SCH (21:00)
[2018-01-12] MEDS ORDERED: MELATONIN 5 MG TABLET PO SCH (21:00)
[2018-01-12] MEDS: FAMOTIDINE 20 MG TAB PO SCH (21:05)
[2018-01-12] MEDS: AZITHROMYCIN 250 MG TAB PO SCH (21:06)
[2018-01-12] MEDS: SENNOSIDES-DOCUSATE SODIUM 1 EACH TAB PO SCH (21:06)
[2018-01-12 23:28] LABS: Creatine Kinase 48 U/L (30-135)
[2018-01-12 23:40] LABS: Creatine Kinase MB 0.7 ng/mL (0.0-2.4); Troponin I <0.012 ng/mL (0.000-0.034)
[2018-01-13 05:31] VITALS: RESP 18
[2018-01-13 06:18] LABS: Cholesterol 178 mg/dL (<200); HDL Cholesterol 47 mg/dL (40-60); LDL Cholesterol,Calculated 105 mg/dL (0-99); Triglycerides 128 mg/dL (<150)
[2018-01-13 06:21] LABS: Creatine Kinase 42 U/L (30-135)
[2018-01-13 06:33] LABS: Creatine Kinase MB 0.7 ng/mL (0.0-2.4); Troponin I <0.012 ng/mL (0.000-0.034)
--- NOTE | 2018-01-13 08:34 | P.CRDCN ---
History of Present Illness Consult date: 01/13/18 Requesting physician: Keisha Thornton Consult reason: chest pain Chief complaint: Chest pain History of present illness: This is a 72-year-old female who follows regularly with Dr. Real Dukes at the [facility] for her cardiac needs. Patient has a known history of paroxysmal atrial fibrillation, nonischemic cardiomyopathy with prior AICD, peripheral arterial disease with prior carotid endarterectomy, hypertension, hyperlipidemia, prior history of smoking, she presents to the hospital on this occasion with symptoms of chest discomfort. According to the patient, she's been having symptoms off and on for the past one week. She describes it as a pressure sensation. It starts in her bilateral axilla area and then radiates around to her chest. Symptoms, with minimal exertion, but they also occur at rest according to the patient. Her initial EKG on presentation here shows a normal sinus rhythm with no acute changes. Subsequent EKG shows a normal sinus rhythm with no acute changes. Asked x-ray shows cardiomegaly. New small infiltrate soft bilateral lung bases as compared with old exam. I pressure on arrival 114/70 with a heart rate in the 70s, afebrile, 94% on room air. White blood cell count is normal, hemoglobin 11.7, platelet count 258. D-dimer negative. Sodium 137, potassium 4.1, BUN 41, creatinine 1.2, magnesium 2.3. Troponins are negative 3, BNP level XI:XXX. Cholesterol 178, triglycerides 128, LDL 105, HDL 47. Patient's home medications include colchicine, potassium 20 mEq daily, torsemide 30 mg daily, ranitidine, Xarelto 20 mg daily, baby aspirin 81 mg daily, Xanax and allopurinol. Patient's list from the office also included metoprolol 25 mg daily and Aldactone 50 daily which the patient states she was instructed to discontinue but she is unsure why. Patient also has ANALIA inhibitor listed as an ALLERGY, however she gets dizzy and hypotensive when she takes these medications. At the time of my examination she is currently chest pain-free. [place] any fever or chills at home, no cough. Past Medical History Past Medical History: Atrial Fibrillation, Coronary Artery Disease (CAD), Cancer , Heart Failure, GERD/Reflux, Pneumonia, Syncope Additional Past Medical History / Comment(s): melanoma cancer of the nose with removal, OCC PSORIASIS/DRY SKIN, NOW MILD ON BOTTOM FEET.SLIGHT STRESS INCONTINENCE @ TIMES,past carotid stenosis(sx) cardiomyopathy,02 2 liters n/c at hs,gout, past falls w/ fx to lt radial and pelvis in 4 spots". History of Any Multi-Drug Resistant Organisms: ESBL Date of last positivie culture/infection: 06/27/16 ESBL-E.coli MDRO Source:: Urine Past Surgical History: AICD, Hysterectomy, Pacemaker, Tubal Ligation Additional Past Surgical History / Comment(s): LT CAROTID ENDARTERECTOMY,AICD- [facility] [place] [facility] IN [place] 10/02/14 TO CHECK AICD Past Anesthesia/Blood Transfusion Reactions: Motion Sickness Additional Past Anesthesia/Blood Transfusion Reaction / Comment(s): clausterphobia Type of Cardiac Device: Permanent Pacemaker, AICD Device Placement Date:: per pt 05/04/16 Smoking Status: Former smoker - Past Family History Father Additional Family Medical History / Comment(s): Father from old age. Daughter(s) Additional Family Medical History / Comment(s): Patient has 2 adult children with no major medical problems. Mother Family Medical History: CVA/TIA Additional Family Medical History / Comment(s): Mother from old age. Medications and Allergies Home Medications Medication Instructions Recorded Confirmed Type Citalopram Hydrobromide [CeleXA] 40 mg PO HS@2100 07/16/14 01/12/18 History Ranitidine HCl [Zantac] 150 mg PO BID 06/27/16 01/12/18 History Rivaroxaban [Xarelto] 20 mg PO DAILY 06/27/16 01/12/18 History Aspirin EC [Ecotrin Low Dose] 81 mg PO DAILY 08/23/17 01/12/18 History Colchicine 0.6 mg PO DAILY 08/23/17 01/12/18 History Melatonin 5 mg PO HS 08/23/17 01/12/18 History Potassium Chloride ER [K-Dur 20] 40 meq PO DAILY 08/23/17 01/12/18 History Sennosides-Docusate Sodium 1 tab PO BID 08/23/17 01/12/18 History [Senokot-S] Spironolactone 50 mg PO DAILY 08/23/17 01/12/18 History Torsemide [Demadex] 80 mg PO DAILY 08/23/17 01/12/18 History ALPRAZolam [Xanax] 2 mg PO HS PRN 01/12/18 01/12/18 History Allopurinol [Zyloprim] 100 mg PO DAILY 01/12/18 01/12/18 History Allergies Allergy/AdvReac Type Severity Reaction Status Date / Time cephalexin monohydrate Allergy Rash/Hives Verified 01/12/18 16:52 [From Keflex] levofloxacin [From Levaquin] Allergy Rash/Hives Verified 01/12/18 22:14 lisinopril Allergy Rash/Hives Verified 01/12/18 16:52 morphine Allergy Rash/Hives/ Verified 01/12/18 16:52 Sob warfarin [From Coumadin] Allergy Rash/Hives Verified 01/12/18 16:52 codeine AdvReac Nausea & Verified 01/12/18 16:52 Vomiting hydrocodone [From [place]] AdvReac Nausea & Verified 01/12/18 16:52 Vomiting Physical Exam Vitals: Vital Signs Temp Pulse Pulse Resp BP BP Pulse Ox 01/13/18 04:00 97.6 F 74 18 101/55 93 L 01/13/18 00:00 73 16 95/55 95 01/12/18 20:00 96.9 F L 66 18 131/70 92 L 01/12/18 18:21 97.2 F L 58 L 18 116/66 95 01/12/18 17:10 18 01/12/18 16:19 97.4 F L 77 18 114/79 94 L Intake and Output 01/12/18 01/13/18 01/13/18 22:59 06:59 14:59 Other: Voiding Method Toilet Toilet # Voids 1 1 Weight 78.925 kg 78.5 kg PHYSICAL EXAMINATION: GENERAL: 72-year-old female in no acute distress at the time of my examination HEENT: Head is atraumatic, normocephalic. Pupils equal, round. Sclera anicteric. Conjunctiva are clear. Mucous membranes of the mouth are moist. Neck is supple. There is no elevated jugular venous pressure. No carotid bruit is heard. HEART EXAMINATION: S1 and S2 1 systolic ejection murmur is heard. CHEST EXAMINATION: Lungs are clear to auscultation and precussion. No chest wall tenderness is noted on palpation or with deep breathing. ABDOMEN: Soft, nontender. Bowel sounds are heard. No organomegaly noted. EXTREMITIES: 2+ peripheral pulses with no evidence of peripheral edema and no calf tenderness noted. NEUROLOGIC patient is awake, alert and oriented ?-3. . Results 01/12/18 17:10 01/12/18 17:10 Cardiac Enzymes 01/12/18 01/12/18 01/12/18 Range/Units 17:10 17:10 22:44 AST 73 H (14-36) U/L CK-MB (CK-2) 0.6 0.7 (0.0-2.4) ng/mL Troponin I <0.012 <0.012 (0.000-0.034) ng/mL 01/13/18 Range/Units 05:15 AST (14-36) U/L CK-MB (CK-2) 0.7 (0.0-2.4) ng/mL Troponin I <0.012 (0.000-0.034) ng/mL Coagulation 01/12/18 Range/Units 17:10 PT 12.9 H (9.0-12.0) sec APTT 36.3 H (22.0-30.0) sec Lipids 01/13/18 Range/Units 05:15 Triglycerides 128 (<150) mg/dL Cholesterol 178 (<200) mg/dL HDL Cholesterol 47 (40-60) mg/dL CBC 01/12/18 Range/Units 17:10 WBC 4.5 (3.8-10.6) k/uL RBC 4.31 (3.80-5.40) m/uL Hgb 11.7 (11.4-16.0) gm/dL Hct 36.5 (34.0-46.0) % Plt Count 258 (150-450) k/uL Comprehensive Metabolic Panel 01/12/18 Range/Units 17:10 Sodium 137 (137-145) mmol/L Potassium 4.1 (3.5-5.1) mmol/L Chloride 103 (98-107) mmol/L Carbon Dioxide 27 (22-30) mmol/L BUN 41 H (7-17) mg/dL Creatinine 1.22 H (0.52-1.04) mg/dL Glucose 89 (74-99) mg/dL Calcium 9.2 (8.4-10.2) mg/dL AST 73 H (14-36) U/L ALT 52 (9-52) U/L Alkaline Phosphatase 103 (38-126) U/L Total Protein 6.7 (6.3-8.2) g/dL Albumin 4.1 (3.5-5.0) g/dL Current Medications Generic Name Dose Route Start Last Admin Trade Name Freq PRN Reason Stop Dose Admin Acetaminophen 650 mg 01/12/18 17:56 Tylenol Tab PO Q4HR PRN Pain Allopurinol 100 mg 01/13/18 09:00 Zyloprim PO DAILY LULA Alprazolam 2 mg 01/12/18 18:11 Xanax PO HS PRN Anxiety Aspirin 81 mg 01/13/18 09:00 Aspirin PO DAILY [facility] Azithromycin 250 mg 01/12/18 20:00 01/12/18 21:06 Zithromax PO 250 mg DAILY LULA Administration Citalopram Hydrobromide 40 mg 01/12/18 21:00 01/12/18 21:05 Celexa PO 40 mg HS@2100 LULA Administration Colchicine 0.6 mg 01/13/18 09:00 Colcrys PO DAILY LULA Diphenhydramine HCl 25 mg 01/12/18 19:56 Benadryl PO QID PRN Allergic Reaction Famotidine 20 mg 01/12/18 21:00 01/12/18 21:05 Pepcid PO 20 mg BID LULA Administration Sodium Chloride 1,000 mls @ 20 mls/hr 01/12/18 16:46 01/12/18 17:20 Saline 0.9% IV 01/13/18 16:45 20 mls/hr .Q24H STA Administration Melatonin 5 mg 01/12/18 21:00 01/12/18 21:05 Melatonin PO 5 mg HS LULA Administration Nitroglycerin 0.4 mg 01/12/18 17:56 Nitrostat SUBLINGUAL Q5M PRN Chest Pain Potassium Chloride 40 meq 01/13/18 09:00 K-Dur 20 PO DAILY LULA Rivaroxaban 20 mg 01/13/18 09:00 Xarelto PO DAILY [facility] Senna/Docusate Sodium 1 each 01/12/18 21:00 01/12/18 21:06 Senokot-S PO 1 each BID LULA Administration Spironolactone 50 mg 01/13/18 09:00 Aldactone PO DAILY LULA Torsemide 80 mg 01/13/18 09:00 Demadex PO DAILY LULA Intake and Output 01/12/18 01/13/18 01/13/18 22:59 06:59 14:59 Other: Voiding Method Toilet Toilet # Voids 1 1 Weight 78.925 kg 78.5 kg 01/12/18 17:10 01/12/18 17:10 EKG Interpretations (text) EKG shows normal sinus rhythm with no acute changes. Assessment and Plan Plan: Assessment and plan #1 chest pain, with some atypical features for acute coronary syndrome. Troponins negative 3. EKG shows normal sinus rhythm with no acute changes. #2 nonischemic cardio myopathy with prior AICD implantation #3 PAD with prior carotid endarterectomy #4 paroxysmal atrial fibrillation on Xarelto for anticoagulation #5 prior history of smoking #6 hyperlipidemia #7 anxiety Plan We will obtain an echocardiogram with Doppler study. We will also recommend patient undergo stress testing today. Following that we will put the patient back on a low-dose of beta [place]mond and Aldactone. We may also consider the addition of Entresto. in further recommendations to follow.
[2018-01-13] MEDS ORDERED: RIVAROXABAN 20 MG TAB PO SCH (09:00)
[2018-01-13] MEDS ORDERED: SPIRONOLACTONE 25 MG TAB PO SCH (09:00)
[2018-01-13] MEDS ORDERED: ASPIRIN 325 MG TAB PO SCH (09:00)
[2018-01-13] MEDS ORDERED: TORSEMIDE 20 MG TAB PO SCH (09:00)
[2018-01-13] MEDS ORDERED: COLCHICINE 0.6 MG EACH PO SCH (09:00)
[2018-01-13] MEDS ORDERED: ALLOPURINOL 100 MG TAB PO SCH (09:00)
[2018-01-13] MEDS ORDERED: ASPIRIN 81 MG PO SCH (09:00)
[2018-01-13] MEDS ORDERED: POTASSIUM CHLORIDE ER 20 MEQ TAB.ER PO SCH (09:00)
[2018-01-13] MEDS ORDERED: AMINOPHYLLINE 500 MG/20 ML VIAL IV PRN (10:02)
[2018-01-13] MEDS ORDERED: REGADENOSON 0.4 MG/5 ML SYRINGE IV ONE (10:02)
[2018-01-13 11:27] VITALS: TEMP 97.7
--- NOTE | 2018-01-13 12:10 | ECHOF ---
Referral Reason:Chest pain with a history of cardiomyopathy MEASUREMENTS -------- HEIGHT: 165.1 cm WEIGHT: 78.5 kg BP: 101/55 RVIDd: 2.6 cm (< 3.3) IVSd: 1.3 cm (0.6 - 1.1) LVIDd: 6.4 cm (3.9 - 5.3) LVPWd: 1.3 cm (0.6 - 1.1) IVSs: 1.6 cm LVIDs: 5.0 cm LVPWs: 1.4 cm LA Diam: 3.9 cm (2.7 - 3.8) LAESV Index (A-L): 39.43 ml/m Ao Diam: 3.6 cm (2.0 - 3.7) AV Cusp: 2.5 cm (1.5 - 2.6) MV EXCURSION: 19.783 mm (> 18.000) MV EF SLOPE: 60 mm/s (70 - 150) EPSS: 1.5 cm MV E Gregory: 1.13 m/s MV DecT: 145 ms MV A Gregory: 1.08 m/s MV E/A Ratio: 1.04 RAP: 5.00 mmHg RVSP: 41.92 mmHg FINDINGS -------- A-V paced rhythm. AICD This was a technically good study. The left ventricle is severely dilated. There is mild concentric left ventricular hypertrophy. Ov erall left ventricular systolic function is moderate-severely impaired with, an EF between 30 - 35 %. The right ventricle is normal in size. LA is moderately dilated 34-39 ml/m2 The right atrium is normal in size. The aortic valve is trileaflet and appears structurally normal. Trace amount of aortic regurgitatio n. Mild mitral annular calcification present. There is trace to mild mitral regurgitation. Mild tricuspid regurgitation present. There is mild pulmonary hypertension. The right ventricular systolic pressure, as measured by Doppler, is 41.92mmHg. Trace/mild (physiologic) pulmonic regurgitation. The aortic root size is normal. Normal inferior vena cava with normal inspiratory collapse consistent with estimated right atrial pre ssure of 5 mmHg. There is a trivial pericardial effusion present. CONCLUSIONS -------- 1. A-V paced rhythm. 2. AICD 3. This was a technically good study. 4. The left ventricle is severely dilated. 5. There is mild concentric left ventricular hypertrophy. 6. Overall left ventricular systolic function is moderate-severely impaired with, an EF between 30 - 35 %. 7. The right ventricle is normal in size. 8. LA is moderately dilated 34-39 ml/m2 9. The right atrium is normal in size. 10. The aortic valve is trileaflet and appears structurally normal. 11. Trace amount of aortic regurgitation. 12. Mild mitral annular calcification present. 13. There is trace to mild mitral regurgitation. 14. Mild tricuspid regurgitation present. 15. There is mild pulmonary hypertension. 16. The right ventricular systolic pressure, as measured by Doppler, is 41.92mmHg. 17. Trace/mild (physiologic) pulmonic regurgitation. 18. The aortic root size is normal. 19. Normal inferior vena cava with normal inspiratory collapse consistent with estimated right atrial pressure of 5 mmHg. 20. There is a trivial pericardial effusion present. EYE SPECIALIST: Danette Dixon RDCS
[2018-01-13] MEDS: AZITHROMYCIN 250 MG TAB PO SCH (12:51)
[2018-01-13] MEDS: FAMOTIDINE 20 MG TAB PO SCH (12:52)
[2018-01-13] MEDS: SENNOSIDES-DOCUSATE SODIUM 1 EACH TAB PO SCH (12:52)
--- NOTE | 2018-01-13 13:04 | NM ---
EXAMINATION TYPE: NM stress lexiscan cardiolite DATE OF EXAM: 01/13/2018 COMPARISON: NONE HISTORY: Chest pain per order. Family history of heart attack and prior catheterization as well as an shalom presents with chest pain and difficulty breathing as well as palpitations per patient. TECHNIQUE: After the intravenous administration of 9.9 mCi Tc 99m Sestamibi - Cardiolite resting SPE CT images acquired 45 minutes post injection. The patient received 0.4mg Lexiscan, 26.1 mCi Tc 99m Sestamibi - Stress images obtained [address] injection FINDINGS: Review of stress and rest SPECT images demonstrates area of diminished radiotracer uptake involving t he inferior left ventricular wall mid to apical segments extending into the apex and lateral wall lik komal reflecting area of significant old infarct. Gated analysis shows diminished ejection fraction of 49% at rest with increased end-diastolic volume. There is however no convincing evidence for reversi ble ischemia. 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 Correlate clinically. No convincing evidence for reversible ischemia.
--- NOTE | 2018-01-13 13:15 | P.HPIM ---
History of Present Illness H&P Date: 01/13/18 (This document was on [facility] H&P and discharge summary) This is a 72year-old female. Her primary care physician is Dr. Basil Crowell. sees Dr. fletcher Jackson at [facility] She has a past medical history of hypertension, gastroesophageal reflux disease, carotid stenosis and non ischemic cardiomyopathy status post AICD with reported EF 30 -35 %, gout, anxiety and depression. She was recently hospitalized on June 08 following a fall secondary to dizziness with orthostatic changes ruled out. She ended up having a left radial fracture and left pelvic fracture. She was seen by orthopedics and they recommended splint and sling to the left arm and toe-touch weightbearing on the left lower extremity. Patient was again admitted on June 20 with confusion likely secondary to tramadol. She did present with history of passing out. AICD interrogation was done during the admission and found to have normal service function. Patient was again seen in 2017 with altered mental status sec to benzodiazepine which was held. Patient comes in today with chest pain that started 2 weeks ago. According to the patient it is substernal and involves the left than the right chest wall. Patient states she has been coughing with phlegm production and having shortness of breath for the past 2 weeks. She does endorses shortness of breath on exertion. Patient underwent troponin 3 which was negative. EKG showed normal sinus rhythm with no acute changes. Chest x-ray suggested cardiomegaly with a small infiltrate at the lateral lung bases. Echocardiogram was done which suggested mild concentric left ventricular hypertrophy with ejection fraction 30-35% right ventricle systolic pressure 41 with mild pulmonary hypertension. Other labs including CBC was unremarkable INR 1.4 creatinine slightly elevated 1.2 (0.6 - 1 ). Patient underwent stress test today. Results are pending. Patient is a basilar infiltrate that might be contributing to the chest pain likely pleuritis but is currently on xarelto for paroxysmal atrial fibrillation. Hold ibuprofen. The patient will be discharged on azithromycin for 5 days with follow-up with his primary care physician Review of Systems Constitutional: Denies chills, Denies fever, Denies lethargy, Denies malaise, Denies poor appetite, Denies weakness, Denies weight loss Eyes: denies decreased vision, denies diplopia, denies discharge, denies pain Ears: deny: decreased hearing Ears, nose, mouth and throat: Denies dental pain, Denies headache, Denies nasal discharge, Denies nose pain Cardiovascular: Endorses chest pain, endorses decreased exercise tolerance, Denies edema, Denies high blood pressure, endorses irregular heart beat, Denies palpitations, Denies paroxysmal nocturnal dyspnea, Denies rapid heart beat, endorses shortness of breath Respiratory: Endorses congestion, endorses cough, endorses cough with sputum, endorses dyspnea, Denies home oxygen, Denies wheezing Gastrointestinal: Denies abdominal pain, Denies change in bowel habits, Denies coffee ground emesis, Denies early satiety, Denies excessive gas, Denies heartburn, Denies hematemesis, Denies hematochezia, Denies loss of appetite, Denies nausea, Denies vomiting Genitourinary: Denies dysuria, Denies flank pain, Denies kidney stones, Denies menorrhagia, Denies urgency, Denies urinary frequency Musculoskeletal: Denies gait dysfunction, Denies limitation of motion, Denies morning stiffness, Denies muscle cramps Integumentary: Denies rash, Denies wounds, Denies brittle nails, Denies change in hair/nails, Denies darkening of skin Neurological: Denies balance difficulties, Denies change in speech, Denies double vision, Denies gait dysfunction, Denies loss of vision, Denies motor disturbance, Denies numbness, Denies paralysis, Denies paresthesias, Denies seizures Psychiatric: Denies anxiety, Denies depression Endocrine: Denies excessive sweating, Denies excessive thirst, Denies high blood sugars, Denies palpitations Hematologic/Lymphatic: Denies easy bruising, Denies lymphadenopathy Past Medical History Past Medical History: Atrial Fibrillation, Cancer, Heart Failure, GERD/Reflux, Pneumonia, Syncope Additional Past Medical History / Comment(s): melanoma cancer of the nose with removal, OCC PSORIASIS/DRY SKIN, NOW MILD ON BOTTOM FEET.SLIGHT STRESS INCONTINENCE @ TIMES,past carotid stenosis(sx) cardiomyopathy,02 2 liters n/c at hs,gout, past falls w/ fx to lt radial and pelvis in 4 spots". History of Any Multi-Drug Resistant Organisms: ESBL Date of last positivie culture/infection: 06/27/16 ESBL-E.coli MDRO Source:: Urine Past Surgical History: AICD, Hysterectomy, Pacemaker, Tubal Ligation Additional Past Surgical History / Comment(s): LT CAROTID ENDARTERECTOMY,AICD- [facility] [place] [place] 10/02/14 TO CHECK AICD Past Anesthesia/Blood Transfusion Reactions: Motion Sickness Additional Past Anesthesia/Blood Transfusion Reaction / Comment(s): clausterphobia Type of Cardiac Device: Permanent Pacemaker, AICD Device Placement Date:: per pt 05/04/16 Smoking Status: Former smoker - Past Family History Father Additional Family Medical History / Comment(s): Father from old age. Daughter(s) Additional Family Medical History / Comment(s): Patient has 2 adult children with no major medical problems. Mother Family Medical History: CVA/TIA Additional Family Medical History / Comment(s): Mother from old age. Medications and Allergies Home Medications Medication Instructions Recorded Confirmed Type Citalopram Hydrobromide [CeleXA] 40 mg PO HS@2100 07/16/14 01/12/18 History Ranitidine HCl [Zantac] 150 mg PO BID 06/27/16 01/12/18 History Rivaroxaban [Xarelto] 20 mg PO DAILY 06/27/16 01/12/18 History Aspirin EC [Ecotrin Low Dose] 81 mg PO DAILY 08/23/17 01/12/18 History Colchicine 0.6 mg PO DAILY 08/23/17 01/12/18 History Melatonin 5 mg PO HS 08/23/17 01/12/18 History Potassium Chloride ER [K-Dur 20] 40 meq PO DAILY 08/23/17 01/12/18 History Sennosides-Docusate Sodium 1 tab PO BID 08/23/17 01/12/18 History [Senokot-S] Spironolactone 50 mg PO DAILY 08/23/17 01/12/18 History Torsemide [Demadex] 80 mg PO DAILY 08/23/17 01/12/18 History ALPRAZolam [Xanax] 2 mg PO HS PRN 01/12/18 01/12/18 History Allopurinol [Zyloprim] 100 mg PO DAILY 01/12/18 01/12/18 History Allergies Allergy/AdvReac Type Severity Reaction Status Date / Time cephalexin monohydrate Allergy Rash/Hives Verified 01/12/18 16:52 [From Keflex] levofloxacin [From Levaquin] Allergy Rash/Hives Verified 01/12/18 22:14 lisinopril Allergy Rash/Hives Verified 01/12/18 16:52 morphine Allergy Rash/Hives/ Verified 01/12/18 16:52 Sob warfarin [From Coumadin] Allergy Rash/Hives Verified 01/12/18 16:52 codeine AdvReac Nausea & Verified 01/12/18 16:52 Vomiting hydrocodone [From [place]] AdvReac Nausea & Verified 01/12/18 16:52 Vomiting Physical Exam Vitals: Vital Signs Temp Pulse Pulse Resp BP BP Pulse Ox 01/13/18 08:00 97.7 F 78 111/58 91 L 01/13/18 04:00 97.6 F 74 18 101/55 93 L 01/13/18 00:00 73 16 95/55 95 01/12/18 20:00 96.9 F L 66 18 131/70 92 L 01/12/18 18:21 97.2 F L 58 L 18 116/66 95 01/12/18 17:10 18 01/12/18 16:19 97.4 F L 77 18 114/79 94 L Intake and Output 01/12/18 01/13/18 01/13/18 22:59 06:59 14:59 Other: Voiding Method Toilet Toilet # Voids 1 1 Weight 78.925 kg 78.5 kg - Constitutional General appearance: cooperative, no acute distress, obese - EENT Eyes: anicteric sclerae, PERRLA, normal appearance ENT: hearing grossly normal - Neck Neck: no lymphadenopathy, normal ROM, no other, no rigidity, no stridor, no thyromegaly - Respiratory Respiratory: bilateral: CTA, negative: diminished, dullness, rales, rhonchi - Cardiovascular Rhythm: regular Heart sounds: normal: S1, S2 Abnormal Heart Sounds: no systolic murmur, no diastolic murmur, no rub, no S3 Gallop, no S4 Gallop, no click, chest wall tender to palpate bilaterally under the breast - Gastrointestinal General gastrointestinal: normal bowel sounds, soft - Integumentary Integumentary: no rash - Neurologic Neurologic: CNII-XII intact - Musculoskeletal Musculoskeletal: gait normal, strength equal bilaterally - Psychiatric Psychiatric: A&O x's 3, appropriate affect Results CBC & Chem 7: 01/12/18 17:10 01/12/18 17:10 Labs: Abnormal Lab Results - Last 24 Hours (Table) 01/12/18 01/12/18 01/12/18 Range/Units 17:10 17:10 17:10 RDW 16.3 H (11.5-15.5) % PT 12.9 H (9.0-12.0) sec INR 1.4 H (<1.2) APTT 36.3 H (22.0-30.0) sec BUN 41 H (7-17) mg/dL Creatinine 1.22 H (0.52-1.04) mg/dL AST 73 H (14-36) U/L LDL Cholesterol, Calc (0-99) mg/dL 01/13/18 Range/Units 05:15 RDW (11.5-15.5) % PT (9.0-12.0) sec INR (<1.2) APTT (22.0-30.0) sec BUN (7-17) mg/dL Creatinine (0.52-1.04) mg/dL AST (14-36) U/L LDL Cholesterol, Calc 105 H (0-99) mg/dL Thrombosis Risk Factor Assmnt - DVT/VTE Prophylaxis DVT/VTE Prophylaxis: Pharmacologic Prophylaxis ordered - Choose All That Apply Any of the Below Risk Factors Present?: Yes Each Factor Represents 1 point: Obesity (BMI >25) Other Risk Factors: Yes Each Risk Factor Represents 2 Points: Age 61-74 years Thrombosis Risk Factor Assessment Total Risk Factor Score: 3 Thrombosis Risk Factor Assessment Level: Moderate Risk Assessment and Plan Plan: 1, Acute chest pain, likely noncardiac. EKG ordered suggestive of low voltage QRS with no significant abnormality as compared to previous EKGs. Troponin 3 negative. Stress test ordered negative Chest x-ray positive by basilar infiltrate concerning for pleuritis and atypical pneumonia. Patient will be discharged on oral antibiotics in the form of azithromycin 2 Bibasilar infiltrate concerning for atypical pneumonia with pleuritis contributing to the pain . with discharge patient on ciprofloxacin 3. Chronic kidney disease stage III. Continue lisinopril torsemide and spironolactone. 4. Systolic congestive heart failure/ nonischemic cardiomyopathy patient follows [facility] no records of "coronary angiography in the chart. Last ejection fraction 30-35% stable in the echo done today 5. History of paroxysmal atrial fibrillation with History of carotid stenosis status post endarterectomy. Continue Xarelto. 6. Gastrointestinal prophylaxis. Continue Pepcid 7. DVT prophylaxis. Continue Xarelto. Disposition home with self-care
--- NOTE | 2018-01-13 13:32 | EST ---
EXERCISE STRESS DATE OF SERVICE: 01/13/2018 AGE: 72 SEX: Female HT: 5'5" WT: 173 PROTOCOL: Lexiscan Cardiolite STAGE: DURATION OF EXERCISE: HEART RATE REST: 80 BLOOD PRESSURE REST: 140/90 MAXIMUM HEART RATE ACHIEVED: 106 MAXIMUM BLOOD PRESSURE: 140/90 85% MPHR: 100% MPHR: METS: INDICATION: Chest pain. CLINICAL INFORMATION: STRESS DATA: Pretesting physical examination showed a heart rate of 80, pressure is 140/90 mmHg. Baseline EKG showed sinus mechanism. A 0.4 mg of Lexiscan was given over 15 seconds per protocol. Max heart rate was 106 beats per minute and maximum pressure was 140/90 mmHg. Clinically the patient did not have any symptoms of chest pain or discomfort and the EKG did not show any significant ST or T-wave abnormalities concerning for ischemia. CONCLUSION: 1. Nondiagnostic electrocardiogram stress testing in response to Lexiscan. 2. Please follow up on the Cardiolite portion on separate report from the radiology department. MMODL / IJN: [id number] /
[2018-01-13 15:24] VITALS: BP 137/75; PULSE 110
[2018-01-14] MEDS ORDERED: POTASSIUM CHLORIDE ER 20 MEQ TAB.ER PO SCH (09:00)
[2018-01-14] MEDS ORDERED: METOPROLOL SUCCINATE (ER) 25 MG TAB.ER.24H PO SCH (09:00)
== END 2018-01-13 15:50 | disposition home health service (06) ==
LOC: EC 16:16 → 6SEL 17:55
PROVIDERS: ADMIT Internal Medicine; ATTEND Internal Medicine
DX: R07.89 Other chest pain (principal); R06.00 Dyspnea, unspecified; R05 Cough; R06.02 Shortness of breath; I13.0 Hypertensive heart and chronic kidney disease with heart failure and stage 1 through stage 4 chronic kidney disease, or unspecified chronic kidney disease; N18.3 Chronic kidney disease, stage 3 (moderate); I50.20 Unspecified systolic (congestive) heart failure; I48.0 Paroxysmal atrial fibrillation; I65.29 Occlusion and stenosis of unspecified carotid artery; I42.9 Cardiomyopathy, unspecified; I25.10 Atherosclerotic heart disease of native coronary artery without angina pectoris; Z79.899 Other long term (current) drug therapy; Z95.810 Presence of automatic (implantable) cardiac defibrillator; K21.9 Gastro-esophageal reflux disease without esophagitis; M10.9 Gout, unspecified; Z16.12 Extended spectrum beta lactamase (ESBL) resistance; N39.3 Stress incontinence (female) (male); F41.9 Anxiety disorder, unspecified; F32.9 Major depressive disorder, single episode, unspecified; I24.9 Acute ischemic heart disease, unspecified; I73.9 Peripheral vascular disease, unspecified; E78.5 Hyperlipidemia, unspecified; E66.9 Obesity, unspecified; Z68.28 Body mass index [BMI] 28.0-28.9, adult; R91.8 Other nonspecific abnormal finding of lung field; Z87.01 Personal history of pneumonia (recurrent); Z85.820 Personal history of malignant melanoma of skin; Z87.891 Personal history of nicotine dependence; Z95.1 Presence of aortocoronary bypass graft; Z79.01 Long term (current) use of anticoagulants; Z79.82 Long term (current) use of aspirin; Z88.1 Allergy status to other antibiotic agents; Z88.5 Allergy status to narcotic agent; Z88.8 Allergy status to other drugs, medicaments and biological substances; Z82.3 Family history of stroke
CPT/HCPCS: 99285 ×2; 96374 ×2; 36415; 93005; 93017; 93306; 85379; 83880; 80061; 80053; 82550 ×2; 82553 ×2; 83735; 84484 ×2; 85025; 85610; 85730; 87040; 71046; 78452; G0378 ×2; A9500; J1956; J2785

== ENCOUNTER → 2018-01-24 | Outpatient (CLI) | payer MEDICARE ==
--- NOTE | 2018-01-25 13:54 | MM ---
Reason for exam: screening (asymptomatic). Last mammogram was performed 1 year and 11 months ago. History: Patient is postmenopausal and history of other cancer. Family history of breast cancer in mother. Took estrogen for 15 years. Physical Findings: A clinical breast exam by your physician is recommended on an annual basis and results should be correlated with mammographic findings. MG 3D Screening Mammo W/Cad Bilateral CC and MLO view(s) were taken. Technologist: Nikkie Isaac RT (R)(M) Prior study comparison: February 12, 2016, bilateral MG 3d screening mammo w/cad. May 10, 2013, CAD bilateral diagnostic mammogram. There are scattered fibroglandular densities. Asymmetric breast tissue right outer breast on CC view, may be summation, 5.6cm from nipple. This finding is changed when compared with previous exams. ASSESSMENT: Incomplete: need additional imaging evaluation, BI-RAD 0 RECOMMENDATION: Ultrasound of the right breast. [facility] will attempt to contact patient to return for ultrasound.
== END | disposition home or self-care (01) ==
LOC: RADMAMWWP 12:46
PROVIDERS: ATTEND Family Medicine
DX: Z12.31 Encounter for screening mammogram for malignant neoplasm of breast (principal)
CPT/HCPCS: 77063; 77067

== ENCOUNTER → 2018-01-28 | Outpatient (CLI) | payer MEDICARE ==
--- NOTE | 2018-01-31 08:29 | USB ---
Reason for exam: additional evaluation requested from abnormal screening. History: Patient is postmenopausal and history of other cancer. Family history of breast cancer in mother. Took estrogen for 15 years. Physical Findings: Nurse Summary: Patient complains of tender right breast lump x 1 week, soft, movable, tender with palpation (nurse mj). US Breast Workup Limited ANDREA Right limited breast ultrasound including focal area of concern, retroareolar and axilla demonstrates a 0.4 x 0.2 x 0.4cm lesion too small to characterize at 9 o'clock. Left limited breast ultrasound including focal area of concern, retroareolar and axilla demonstrates a 0.3 x 0.3 x 0.3cm lesion too small to characterize at 12 o'clock. These results were verbally communicated with the patient and result sheet given to the patient on 01/28/18. ASSESSMENT: Probably benign, BI-RAD 3 RECOMMENDATION: Follow-up diagnostic mammogram and ultrasound of both breasts in 6 months.
== END | disposition home or self-care (01) ==
LOC: RADUSWWP 13:11
PROVIDERS: ATTEND Family Medicine
DX: R92.8 Other abnormal and inconclusive findings on diagnostic imaging of breast (principal)

== ENCOUNTER 2018-02-03 12:33 | Emergency (ER) | payer MEDICARE ==
[2018-02-03 12:44] VITALS: RESP 18
[2018-02-03 13:16] LABS: Anisocytosis Slight; Basophils % (A) 1 %; Eosinophils # (A) 0.1 k/uL (0-0.7); Eosinophils % (A) 2 %; HCT 42.5 % (34.0-46.0); HGB 13.5 gm/dL (11.4-16.0); Lymphocytes # (A) 1.5 k/uL (1.0-4.8); Lymphocytes % (A) 26 %; MCH 27.9 pg (25.0-35.0); MCHC 31.9 g/dL (31.0-37.0); MCV 87.6 fL (80.0-100.0); Mean Platelet Volume 6.3; Monocytes # (A) 0.4 k/uL (0-1.0); Monocytes % (A) 7 %; Neutrophils # (A) 3.7 k/uL (1.3-7.7); Neutrophils % (A) 63 %; Platelet Count 283 k/uL (150-450); RBC 4.85 m/uL (3.80-5.40); RDW 16.6 % (11.5-15.5); WBC 5.9 k/uL (3.8-10.6)
[2018-02-03 13:27] LABS: Albumin 4.5 g/dL (3.5-5.0); Calcium 9.9 mg/dL (8.4-10.2); Total Bilirubin 0.7 mg/dL (0.2-1.3); Total Protein 7.9 g/dL (6.3-8.2)
[2018-02-03] MEDS ORDERED: ONDANSETRON 4 MG ODT STARTER PACK 2 TAB BTL PO STA (14:51)
--- NOTE | 2018-02-03 15:03 | ED ---
Nausea/Vomiting/Diarrhea HPI - General Chief complaint: Nausea/Vomiting/Diarrhea Stated complaint: NAUSEA, VOMITING, NOT TAKING MEDICATION Time Seen by Provider: 02/03/18 14:28 Source: patient, RN notes reviewed, old records reviewed Mode of arrival: ambulatory Limitations: no limitations - History of Present Illness Initial comments: This is a 72 year old female with CC of nausea for the past 2 days. Patient reports it occured after she accidentaly took 1 extra of her water pills. She reports yesterday she had some vomiting early in the day, but did tolerate dinner. She reports she has been able to drink water. She called her PCP and was told to come here. She reports at arrival, no abdominal pain, no recent vomiting. Patient has no other symptoms at this time. - Related Data Home Medications Medication Instructions Recorded Confirmed Citalopram Hydrobromide [CeleXA] 40 mg PO HS@2100 07/16/14 02/03/18 Ranitidine HCl [Zantac] 150 mg PO BID 06/27/16 02/03/18 Rivaroxaban [Xarelto] 20 mg PO DAILY 06/27/16 02/03/18 Aspirin EC [Ecotrin Low Dose] 81 mg PO DAILY 08/23/17 02/03/18 Colchicine 0.6 mg PO DAILY 08/23/17 02/03/18 Melatonin 5 mg PO HS 08/23/17 02/03/18 Potassium Chloride ER [K-Dur 20] 40 meq PO DAILY 08/23/17 02/03/18 Sennosides-Docusate Sodium 1 tab PO BID 08/23/17 02/03/18 [Senokot-S] Spironolactone 50 mg PO DAILY 08/23/17 02/03/18 Torsemide [Demadex] 80 mg PO DAILY 08/23/17 02/03/18 ALPRAZolam [Xanax] 2 mg PO HS PRN 01/12/18 02/03/18 Allopurinol [Zyloprim] 100 mg PO DAILY 01/12/18 02/03/18 Previous Rx's Medication Instructions Recorded Metoprolol Succinate (ER) [Toprol 25 mg PO DAILY #30 tab.er.24h 01/13/18 XL] Ondansetron Odt [Zofran Odt] 4 mg PO Q8HR PRN #12 tab 02/03/18 Allergies Allergy/AdvReac Type Severity Reaction Status Date / Time cephalexin monohydrate Allergy Rash/Hives Verified 02/03/18 16:28 [From Keflex] levofloxacin [From Levaquin] Allergy Rash/Hives Verified 02/03/18 16:28 lisinopril Allergy Rash/Hives Verified 02/03/18 16:28 morphine Allergy Rash/Hives/ Verified 02/03/18 16:28 Sob warfarin [From Coumadin] Allergy Rash/Hives Verified 02/03/18 16:28 codeine AdvReac Nausea & Verified 02/03/18 16:28 Vomiting hydrocodone [From [place]] AdvReac Nausea & Verified 02/03/18 16:28 Vomiting Review of Systems ROS Statement: Those systems with pertinent positive or pertinent negative responses have been documented in the HPI. ROS Other: All systems not noted in ROS Statement are negative. Past Medical History Past Medical History: Atrial Fibrillation, Cancer, Heart Failure, GERD/Reflux, Pneumonia, Syncope Additional Past Medical History / Comment(s): melanoma cancer of the nose with removal, OCC PSORIASIS/DRY SKIN, NOW MILD ON BOTTOM FEET.SLIGHT STRESS INCONTINENCE @ TIMES,past carotid stenosis(sx) cardiomyopathy,02 2 liters n/c at hs,gout, past falls w/ fx to lt radial and pelvis in 4 spots". History of Any Multi-Drug Resistant Organisms: ESBL Date of last positivie culture/infection: 06/27/16 ESBL-E.coli MDRO Source:: Urine Past Surgical History: AICD, Hysterectomy, Pacemaker, Tubal Ligation Additional Past Surgical History / Comment(s): LT CAROTID ENDARTERECTOMY,AICD- [facility] [place] 10/02/14 TO CHECK AICD Past Anesthesia/Blood Transfusion Reactions: Motion Sickness Additional Past Anesthesia/Blood Transfusion Reaction / Comment(s): clausterphobia Type of Cardiac Device: Permanent Pacemaker, AICD Device Placement Date:: per pt 05/04/16 Past Psychological History: Anxiety Smoking Status: Former smoker - Past Family History Father Additional Family Medical History / Comment(s): Father from old age. Daughter(s) Additional Family Medical History / Comment(s): Patient has 2 adult children with no major medical problems. Mother Family Medical History: CVA/TIA Additional Family Medical History / Comment(s): Mother from old age. General Exam - General Exam Comments Initial Comments: This is a 72 year old female, no distress. Limitations: no limitations General appearance: alert, in no apparent distress Head exam: Present: atraumatic, normocephalic, normal inspection Eye exam: Present: normal appearance, PERRL, EOMI. Absent: scleral icterus, conjunctival injection, periorbital swelling ENT exam: Present: normal exam, mucous membranes moist Neck exam: Present: normal inspection. Absent: tenderness, meningismus, lymphadenopathy Respiratory exam: Present: normal lung sounds bilaterally. Absent: respiratory distress, wheezes, rales, rhonchi, stridor Cardiovascular Exam: Present: regular rate, normal rhythm, normal heart sounds. Absent: systolic murmur, diastolic murmur, rubs, gallop, clicks GI/Abdominal exam: Present: soft, normal bowel sounds. Absent: distended, tenderness, guarding, rebound, rigid Extremities exam: Present: normal inspection, full ROM, normal capillary refill. Absent: tenderness, pedal edema, joint swelling, calf tenderness Back exam: Present: normal inspection Neurological exam: Present: alert, oriented X3, CN II-XII intact Psychiatric exam: Present: normal affect, normal mood Skin exam: Present: warm, dry, intact, normal color. Absent: rash Course Vital Signs 02/03/18 02/03/18 02/03/18 12:40 15:19 16:16 Temperature 97.6 F 98.9 F Pulse Rate 95 81 Respiratory 18 18 Rate Blood Pressure 116/85 119/82 O2 Sat by Pulse 96 94 L Oximetry Medical Decision Making - Medical Decision Making This is a 72 year old female with CC of vomiting yesterday, today she has no abdominal pain or vomiting. She was sent in by her PCP. At this time her lab work shows no acute changes. Patient kidney function is improved from previous labs. She tolerated PO challenge in ED. Patient CXR and KUB is normal. Patient given zofran adn reports no further nausea. Patient At this time will follow up with PCP and return parameters discussed. - Lab Data Result diagrams: 02/03/18 13:01 02/03/18 13:01 Lab Results 02/03/18 02/03/18 02/03/18 Range/Units 13:01 13:01 15:18 WBC 5.9 (3.8-10.6) k/uL RBC 4.85 (3.80-5.40) m/uL Hgb 13.5 (11.4-16.0) gm/dL Hct 42.5 (34.0-46.0) % MCV 87.6 (80.0-100.0) fL MCH 27.9 (25.0-35.0) pg MCHC 31.9 (31.0-37.0) g/dL RDW 16.6 H (11.5-15.5) % Plt Count 283 (150-450) k/uL Neutrophils % 63 % Lymphocytes % 26 % Monocytes % 7 % Eosinophils % 2 % Basophils % 1 % Neutrophils # 3.7 (1.3-7.7) k/uL Lymphocytes # 1.5 (1.0-4.8) k/uL Monocytes # 0.4 (0-1.0) k/uL Eosinophils # 0.1 (0-0.7) k/uL Basophils # 0.0 (0-0.2) k/uL Anisocytosis Slight Sodium 137 (137-145) mmol/L Potassium 4.0 (3.5-5.1) mmol/L Chloride 100 (98-107) mmol/L Carbon Dioxide 25 (22-30) mmol/L Anion Gap 12 mmol/L BUN 26 H (7-17) mg/dL Creatinine 0.95 (0.52-1.04) mg/dL Est GFR (CKD-EPI)AfAm 71 (>60 ml/min/1.73 sqM) Est GFR (CKD-EPI)NonAf 61 (>60 ml/min/1.73 sqM) Glucose 103 H (74-99) mg/dL Calcium 9.9 (8.4-10.2) mg/dL Total Bilirubin 0.7 (0.2-1.3) mg/dL AST 32 (14-36) U/L ALT 26 (9-52) U/L Alkaline Phosphatase 113 (38-126) U/L Total Protein 7.9 (6.3-8.2) g/dL Albumin 4.5 (3.5-5.0) g/dL Amylase 55 (30-110) U/L Lipase 175 (23-300) U/L Urine Color Yellow Urine Appearance Clear (Clear) Urine pH 5.5 (5.0-8.0) Ur Specific [place] 1.011 (1.001-1.035) Urine Protein Negative (Negative) Urine Glucose (UA) Negative (Negative) Urine Ketones Negative (Negative) Urine Blood Negative (Negative) Urine Nitrite Negative (Negative) Urine Bilirubin Negative (Negative) Urine Urobilinogen <2.0 (<2.0) mg/dL Ur Leukocyte Esterase Large H (Negative) Urine RBC 2 (0-5) /hpf Urine WBC 5 (0-5) /hpf Ur Squamous Epith Cells 3 (0-4) /hpf Hyaline Casts 8 H (0-2) /lpf - Radiology Data Radiology results: report reviewed Front and instructed bowel gas pattern noted. Chest x-rays negative for any acute Tai pulmonary disease. Disposition Clinical Impression: Nausea Disposition: HOME SELF-CARE Condition: Good Instructions: Acute Nausea and Vomiting (ED) Additional Instructions: Patient advised to follow-up with primary care provider. Return to emergency department if any alarming signs or symptoms occur. Prescriptions: Ondansetron Odt [Zofran Odt] 4 mg PO Q8HR PRN #12 tab PRN Reason: Nausea Is patient prescribed a controlled substance at d/c from ED?: No Referrals: Basil Crowell DO [Primary Care Provider] - 1-2 days Time of Disposition: 16:05
[2018-02-03 15:20] VITALS: BP 119/82; PULSE 81
--- NOTE | 2018-02-03 15:36 | XR ---
EXAMINATION TYPE: XR chest 2V DATE OF EXAM: 02/03/2018 COMPARISON: 01/12/18 HISTORY: Shortness of breath TECHNIQUE: Frontal and lateral views of the chest are obtained. FINDINGS: Scattered senescent parenchymal changes noted. Hyperinflation compatible with COPD. No evidence for infiltrate. No evidence for atelectasis. Heart size is stable. Mediastinal structures are stable and grossly unremarkable. No evidence for hilar prominence. Degenerative changes dorsal spine. IMPRESSION: 1. No evidence for acute pulmonary disease.
--- NOTE | 2018-02-03 15:38 | XR ---
EXAMINATION TYPE: XR KUB DATE OF EXAM: 02/03/2018 COMPARISON: None HISTORY: Pain TECHNIQUE: Single supine KUB image of the abdomen is obtained FINDINGS: Small bowel demonstrates no evidence for dilatation or air fluid levels. Gas and fecal material is seen in non-distended colon. No convincing evidence for pneumoperitoneum. No unusual calcifications. The lung bases are clear. The osseous structures are intact. IMPRESSION: 1. Overall nonobstructive bowel gas pattern.
[2018-02-03 16:02] LABS: Appearance,Urine Clear (Clear); Bilirubin,Urine Negative (Negative); Blood,Urine Negative (Negative); Color,Urine Yellow; Glucose,Urine (UA) Negative (Negative); Hyaline Casts,Urine 8 /lpf (0-2); Ketones,Urine Negative (Negative); Leukocyte Esterase,Urine Large (Negative); Nitrite,Urine Negative (Negative); PH, Urine 5.5 (5.0-8.0); Protein,Urine Negative (Negative); RBC,Urine 2 /hpf (0-5); Specific Gravity,Urine 1.011 (1.001-1.035); Squamous Epithelial Cell,Urine 3 /hpf (0-4); Urobilinogen,Urine <2.0 mg/dL (<2.0); WBC,Urine 5 /hpf (0-5)
[2018-02-03 16:17] VITALS: TEMP 98.9
== END 2018-02-03 16:15 | disposition home or self-care (01) ==
LOC: EC 12:33
DX: R11.2 Nausea with vomiting, unspecified (principal); I48.91 Unspecified atrial fibrillation; I50.9 Heart failure, unspecified; K21.9 Gastro-esophageal reflux disease without esophagitis; I42.9 Cardiomyopathy, unspecified; F41.9 Anxiety disorder, unspecified; Z85.828 Personal history of other malignant neoplasm of skin; Z87.891 Personal history of nicotine dependence; Z95.810 Presence of automatic (implantable) cardiac defibrillator; Z90.710 Acquired absence of both cervix and uterus; Z98.51 Tubal ligation status; Z98.890 Other specified postprocedural states; Z79.01 Long term (current) use of anticoagulants; Z79.82 Long term (current) use of aspirin; Z79.899 Other long term (current) drug therapy; Z88.1 Allergy status to other antibiotic agents; Z88.5 Allergy status to narcotic agent; Z88.8 Allergy status to other drugs, medicaments and biological substances
CPT/HCPCS: 36415; 80053; 82150; 83690; 85025; 81001; 87086; 71046; 74018; 99284; S0119

== ENCOUNTER 2018-02-18 13:35 | Inpatient (IN) | payer MEDICARE ==
[2018-02-18] MEDS ORDERED: SODIUM CHLORIDE 0.9% 1,000 ML IV STA (14:22)
[2018-02-18] MEDS ORDERED: PANTOPRAZOLE 40 MG/10 ML VIAL IVP STA (14:23)
[2018-02-18] MEDS ORDERED: ONDANSETRON 4 MG/2 ML VIAL IVP STA (14:23)
[2018-02-18 15:03] LABS: Anisocytosis Slight; Basophils % (A) 0 %; Eosinophils % (A) 1 %; HCT 34.5 % (34.0-46.0); HGB 11.2 gm/dL (11.4-16.0); Lymphocytes % (A) 16 %; MCH 28.3 pg (25.0-35.0); MCHC 32.5 g/dL (31.0-37.0); MCV 87.1 fL (80.0-100.0); Mean Platelet Volume 6.5; Monocytes # (A) 0.3 k/uL (0-1.0); Monocytes % (A) 4 %; Neutrophils # (A) 4.6 k/uL (1.3-7.7); Neutrophils % (A) 76 %; Platelet Count 249 k/uL (150-450); RBC 3.96 m/uL (3.80-5.40); RDW 16.2 % (11.5-15.5); WBC 6.1 k/uL (3.8-10.6)
--- NOTE | 2018-02-18 15:04 | ED ---
Nausea/Vomiting/Diarrhea HPI - General Chief complaint: Nausea/Vomiting/Diarrhea Stated complaint: vomiting blood Source: patient, RN notes reviewed Mode of arrival: wheelchair Limitations: no limitations - History of Present Illness Initial comments: This a 72-year-old female presents emergency Department chief complaint of shortness of breath, nausea vomiting. Patient states that she had some back and hip pain yesterday was seen by PCP given injection of pain meds. Patient states today she woke up started dry heaving states that she is spitting up bright red blood. Patient does admit that she takes Xarelto. Patient does admit to some shortness of breath and which she put some oxygen on at home did not seem to alleviate her symptoms. Patient also complained of some mild chest discomfort. denies any lower abdominal pain states that she is very nauseated. Patient states feels weak, run down. - Related Data Home Medications Medication Instructions Recorded Confirmed Citalopram Hydrobromide [CeleXA] 40 mg PO HS@2100 07/16/14 02/18/18 Ranitidine HCl [Zantac] 150 mg PO BID 06/27/16 02/18/18 Rivaroxaban [Xarelto] 20 mg PO DAILY 06/27/16 02/18/18 Aspirin EC [Ecotrin Low Dose] 81 mg PO DAILY 08/23/17 02/18/18 Potassium Chloride ER [K-Dur 20] 40 meq PO DAILY 08/23/17 02/18/18 Sennosides-Docusate Sodium 1 tab PO BID 08/23/17 02/18/18 [Senokot-S] Spironolactone 50 mg PO DAILY 08/23/17 02/18/18 Torsemide [Demadex] 80 mg PO DAILY 08/23/17 02/18/18 ALPRAZolam [Xanax] 2 mg PO HS PRN 01/12/18 02/18/18 Allopurinol [Zyloprim] 100 mg PO DAILY 01/12/18 02/18/18 Previous Rx's Medication Instructions Recorded Metoprolol Succinate (ER) [Toprol 25 mg PO DAILY #30 tab.er.24h 01/13/18 XL] Allergies Allergy/AdvReac Type Severity Reaction Status Date / Time cephalexin monohydrate Allergy Rash/Hives Verified 02/18/18 14:53 [From Keflex] levofloxacin [From Levaquin] Allergy Rash/Hives Verified 02/18/18 14:53 lisinopril Allergy Rash/Hives Verified 02/18/18 14:53 morphine Allergy Rash/Hives/ Verified 02/18/18 14:53 Sob warfarin [From Coumadin] Allergy Rash/Hives Verified 02/18/18 14:53 codeine AdvReac Nausea & Verified 02/18/18 14:53 Vomiting hydrocodone [From [place]] AdvReac Nausea & Verified 02/18/18 14:53 Vomiting ketorolac [From Toradol] AdvReac Dyspnea Verified 02/18/18 14:53 Review of Systems ROS Statement: Those systems with pertinent positive or pertinent negative responses have been documented in the HPI. ROS Other: All systems not noted in ROS Statement are negative. Past Medical History Past Medical History: Atrial Fibrillation, Cancer, Heart Failure, GERD/Reflux, Pneumonia, Syncope Additional Past Medical History / Comment(s): melanoma cancer of the nose with removal, OCC PSORIASIS/DRY SKIN, NOW MILD ON BOTTOM FEET.SLIGHT STRESS INCONTINENCE @ TIMES,past carotid stenosis(sx) cardiomyopathy,02 2 liters n/c at hs,gout, past falls w/ fx to lt radial and pelvis in 4 spots". History of Any Multi-Drug Resistant Organisms: ESBL Date of last positivie culture/infection: 06/27/16 ESBL-E.coli MDRO Source:: Urine Past Surgical History: AICD, Hysterectomy, Pacemaker, Tubal Ligation Additional Past Surgical History / Comment(s): LT CAROTID ENDARTERECTOMY,AICD- [facility] [place]/02/14 TO CHECK AICD Past Anesthesia/Blood Transfusion Reactions: Motion Sickness Additional Past Anesthesia/Blood Transfusion Reaction / Comment(s): clausterphobia Type of Cardiac Device: Permanent Pacemaker, AICD Device Placement Date:: per pt 05/04/16 Past Psychological History: No Psychological Hx Reported Smoking Status: Former smoker Past Alcohol Use History: None Reported Past Drug Use History: None Reported - Past Family History Father Additional Family Medical History / Comment(s): Father from old age. Daughter(s) Additional Family Medical History / Comment(s): Patient has 2 adult children with no major medical problems. Mother Family Medical History: CVA/TIA Additional Family Medical History / Comment(s): Mother from old age. General Exam Limitations: no limitations General appearance: alert, in no apparent distress Head exam: Present: atraumatic, normocephalic, normal inspection ENT exam: Present: normal exam, normal oropharynx, mucous membranes moist, TM's normal bilaterally Neck exam: Present: normal inspection, full ROM. Absent: tenderness, meningismus, lymphadenopathy Respiratory exam: Present: normal lung sounds bilaterally. Absent: respiratory distress, wheezes, rales, rhonchi, stridor Cardiovascular Exam: Present: regular rate, normal rhythm, normal heart sounds. Absent: systolic murmur, diastolic murmur, rubs, gallop, clicks GI/Abdominal exam: Present: soft, normal bowel sounds. Absent: distended, tenderness, guarding, rebound, rigid Back exam: Absent: CVA tenderness (R), CVA tenderness (L) Neurological exam: Present: alert, oriented X3, CN II-XII intact Skin exam: Present: warm, dry, intact, normal color. Absent: rash Course Vital Signs 02/18/18 13:51 Temperature 98.2 F Pulse Rate 62 Respiratory 16 Rate Blood Pressure 93/69 O2 Sat by Pulse 93 L Oximetry Medical Decision Making - Lab Data Result diagrams: 02/18/18 14:50 02/18/18 14:50 Lab Results 02/18/18 02/18/18 02/18/18 Range/Units 14:50 14:50 14:50 WBC 6.1 (3.8-10.6) k/uL RBC 3.96 (3.80-5.40) m/uL Hgb 11.2 L (11.4-16.0) gm/dL Hct 34.5 (34.0-46.0) % MCV 87.1 (80.0-100.0) fL MCH 28.3 (25.0-35.0) pg MCHC 32.5 (31.0-37.0) g/dL RDW 16.2 H (11.5-15.5) % Plt Count 249 (150-450) k/uL Neutrophils % 76 % Lymphocytes % 16 % Monocytes % 4 % Eosinophils % 1 % Basophils % 0 % Neutrophils # 4.6 (1.3-7.7) k/uL Lymphocytes # 1.0 (1.0-4.8) k/uL Monocytes # 0.3 (0-1.0) k/uL Eosinophils # 0.0 (0-0.7) k/uL Basophils # 0.0 (0-0.2) k/uL Anisocytosis Slight PT (9.0-12.0) sec INR (<1.2) APTT (22.0-30.0) sec Sodium 132 L (137-145) mmol/L Potassium 5.0 (3.5-5.1) mmol/L Chloride 105 (98-107) mmol/L Carbon Dioxide 18 L (22-30) mmol/L Anion Gap 9 mmol/L BUN 43 H (7-17) mg/dL Creatinine 1.14 H (0.52-1.04) mg/dL Est GFR (CKD-EPI)AfAm 57 (>60 ml/min/1.73 sqM) Est GFR (CKD-EPI)NonAf 49 (>60 ml/min/1.73 sqM) Glucose 100 H (74-99) mg/dL Calcium 9.0 (8.4-10.2) mg/dL Magnesium 2.6 H (1.6-2.3) mg/dL Total Bilirubin 0.4 (0.2-1.3) mg/dL AST 22 (14-36) U/L ALT 29 (9-52) U/L Alkaline Phosphatase 101 (38-126) U/L Total Creatine Kinase 69 (30-135) U/L CK-MB (CK-2) 1.9 (0.0-2.4) ng/mL CK-MB (CK-2) Rel Index 2.8 Troponin I 0.013 (0.000-0.034) ng/mL Total Protein 6.5 (6.3-8.2) g/dL Albumin 3.7 (3.5-5.0) g/dL Amylase 49 (30-110) U/L Lipase 133 (23-300) U/L Urine Color Urine Appearance (Clear) Urine pH (5.0-8.0) Ur Specific [place] (1.001-1.035) Urine Protein (Negative) Urine Glucose (UA) (Negative) Urine Ketones (Negative) Urine Blood (Negative) Urine Nitrite (Negative) Urine Bilirubin (Negative) Urine Urobilinogen (<2.0) mg/dL Ur Leukocyte Esterase (Negative) Urine RBC (0-5) /hpf Urine WBC (0-5) /hpf Ur Squamous Epith Cells (0-4) /hpf Urine Bacteria (None) /hpf Urine Mucus (None) /hpf 02/18/18 02/18/18 Range/Units 14:50 14:50 WBC (3.8-10.6) k/uL RBC (3.80-5.40) m/uL Hgb (11.4-16.0) gm/dL Hct (34.0-46.0) % MCV (80.0-100.0) fL MCH (25.0-35.0) pg MCHC (31.0-37.0) g/dL RDW (11.5-15.5) % Plt Count (150-450) k/uL Neutrophils % % Lymphocytes % % Monocytes % % Eosinophils % % Basophils % % Neutrophils # (1.3-7.7) k/uL Lymphocytes # (1.0-4.8) k/uL Monocytes # (0-1.0) k/uL Eosinophils # (0-0.7) k/uL Basophils # (0-0.2) k/uL Anisocytosis PT 10.2 (9.0-12.0) sec INR 1.0 (<1.2) APTT 26.9 (22.0-30.0) sec Sodium (137-145) mmol/L Potassium (3.5-5.1) mmol/L Chloride (98-107) mmol/L Carbon Dioxide (22-30) mmol/L Anion Gap mmol/L BUN (7-17) mg/dL Creatinine (0.52-1.04) mg/dL Est GFR (CKD-EPI)AfAm (>60 ml/min/1.73 sqM) Est GFR (CKD-EPI)NonAf (>60 ml/min/1.73 sqM) Glucose (74-99) mg/dL Calcium (8.4-10.2) mg/dL Magnesium (1.6-2.3) mg/dL Total Bilirubin (0.2-1.3) mg/dL AST (14-36) U/L ALT (9-52) U/L Alkaline Phosphatase (38-126) U/L Total Creatine Kinase (30-135) U/L CK-MB (CK-2) (0.0-2.4) ng/mL CK-MB (CK-2) Rel Index Troponin I (0.000-0.034) ng/mL Total Protein (6.3-8.2) g/dL Albumin (3.5-5.0) g/dL Amylase (30-110) U/L Lipase (23-300) U/L Urine Color Light Yellow Urine Appearance Clear (Clear) Urine pH 5.0 (5.0-8.0) Ur Specific [place] 1.011 (1.001-1.035) Urine Protein Negative (Negative) Urine Glucose (UA) Negative (Negative) Urine Ketones Negative (Negative) Urine Blood Moderate H (Negative) Urine Nitrite Negative (Negative) Urine Bilirubin Negative (Negative) Urine Urobilinogen <2.0 (<2.0) mg/dL Ur Leukocyte Esterase Moderate H (Negative) Urine RBC 1 (0-5) /hpf Urine WBC 1 (0-5) /hpf Ur Squamous Epith Cells 1 (0-4) /hpf Urine Bacteria Occasional H (None) /hpf Urine Mucus Rare H (None) /hpf Disposition Clinical Impression: Bilateral pneumonia, Hemoptysis, Nausea, Chest pain Disposition: ADMITTED IP TO THIS [facility] Condition: Fair Referrals: Basil Crowell DO [Primary Care Provider] - 1-2 days
[2018-02-18 15:11] LABS: Appearance,Urine Clear (Clear); Bacteria,Urine Occasional /hpf; Bilirubin,Urine Negative (Negative); Blood,Urine Moderate (Negative); Color,Urine Light Yellow; Glucose,Urine (UA) Negative (Negative); Ketones,Urine Negative (Negative); Leukocyte Esterase,Urine Moderate (Negative); Mucus,Urine Rare /hpf; Nitrite,Urine Negative (Negative); Protein,Urine Negative (Negative); RBC,Urine 1 /hpf (0-5); Specific Gravity,Urine 1.011 (1.001-1.035); Squamous Epithelial Cell,Urine 1 /hpf (0-4); Urobilinogen,Urine <2.0 mg/dL (<2.0); WBC,Urine 1 /hpf (0-5)
--- NOTE | 2018-02-18 15:11 | XR ---
EXAMINATION TYPE: XR chest 2V DATE OF EXAM: 02/18/2018 COMPARISON: 02/03/2018 INDICATION: Chest pain nausea vomiting blood TECHNIQUE: Frontal and lateral views of the chest are obtained. FINDINGS: The heart size is enlarged. The pulmonary vasculature is upper limits of normal. Mild infiltrate is at the left base. Some mild posterior right lung infiltrate may be present.. IMPRESSION: 1. Bibasilar infiltrates. Correlate for atelectasis. Developing pneumonia is not excluded. 2. Mild cardiomegaly
[2018-02-18 15:13] LABS: Partial Thromboplastin Time 26.9 sec (22.0-30.0); Prothrombin Time 10.2 sec (9.0-12.0)
[2018-02-18 15:15] LABS: Albumin 3.7 g/dL (3.5-5.0); Magnesium 2.6 mg/dL (1.6-2.3); Total Bilirubin 0.4 mg/dL (0.2-1.3); Total Protein 6.5 g/dL (6.3-8.2)
[2018-02-18 15:39] LABS: Creatine Kinase MB 1.9 ng/mL (0.0-2.4); Troponin I 0.013 ng/mL (0.000-0.034)
[2018-02-18] MEDS ORDERED: ACETAMINOPHEN TAB 325 MG TAB PO STA (16:30)
[2018-02-18] MEDS ORDERED: NITROGLYCERIN SL TABS 0.4 MG TAB SUBLINGUAL PRN (16:31)
[2018-02-18] MEDS ORDERED: PIPERACILLIN-TAZOBACTAM 3.375 GM in DEXTROSE/WATER 1 50ML.BAG IVPB STA (16:36)
[2018-02-18] MEDS ORDERED: PNEUMONIA PROTOCOL UTILIZED 1 EACH MISC PO PRN (16:36)
[2018-02-18] MEDS ORDERED: AZITHROMYCIN 500 MG in SODIUM CHLORIDE 0.9% 250 ML IVPB STA (16:38)
[2018-02-18] MEDS: IPRATROPIUM-ALBUTEROL 3 ML NEB INHALATION PRN ×2 (17:13→20:02)
[2018-02-18 20:58] LABS: Creatine Kinase MB 2.1 ng/mL (0.0-2.4); Troponin I 0.023 ng/mL (0.000-0.034)
[2018-02-18 21:21] LABS: Glucose,Whole Blood 133 mg/dL (75-99)
--- NOTE | 2018-02-18 22:07 | P.HPIM ---
History of Present Illness H&P Date: 02/18/18 Chief Complaint: cough and SOB This is a 72year-old female. Her primary care physician is Dr. Basil Crowell. sees Dr. fletcher Jackson at [facility] [place] She has a past medical history of hypertension, gastroesophageal reflux disease, carotid stenosis and non ischemic cardiomyopathy status post AICD with reported EF 30 -35 %, gout, anxiety and depression. She was recently hospitalized on June 08 following a fall secondary to dizziness with orthostatic changes ruled out. She ended up having a left radial fracture and left pelvic fracture. She was seen by orthopedics and they recommended splint and sling to the left arm and toe-touch weightbearing on the left lower extremity. Patient was again admitted on June 20 with confusion likely secondary to tramadol. She did present with history of passing out. AICD interrogation was done during the admission and found to have normal service function. Patient was again seen in 2017 with altered mental status sec to benzodiazepine which was held. Last seen on January done for acute chest pain. Stress test was done during that admission which suggested old infarct but no reversible ischemia. Patient comes in today with acute onset of shortness of breath and cough production that started yesterday. She had multiple episodes of vomiting this morning. Patient documents having blood-tinged sputum production. She denies any fever or chills. She denies any history of pulmonary embolism or DVT. She is currently on xarelto for paroxysmal atrial fibrillation. Vitals obtained in the ER suggestive of February.9 98 regular was briefly in atrial fibrillation, P respiratory rate of 21 with blood pressure 103/59. in the er suggestive wbc 6.1 hemoglobin 11.2, creatinine 1.14 which is close to patient's baseline (0.9- 1.2. Lactic acid 2.4, BNP 4000, UA clear of any infection. EKG suggestive T- wave inversion in lead V5 and V6 but no ST changes seen. Chest x-ray obtained suggested bibasilar infiltrates worse in the right lower lobe. Patient will be monitored in the ICU overnight for possible transfer to the floor in the morning. Antibiotics will be initiated for HCAP Coverage with Zosyn and vancomycin. Troponin 2 negative, we will repeat in 6 hours. Lactic acid was repeated every 6 hours 3. Patient received a bolus of 1500. Hold further IV fluids due to concern of CHF. CT chest with IV contrast will be obtained for concern of hemoptysis and possible need for bronchoscopy. Pulmonary consult follow up in the morning Review of Systems Constitutional: Denies chills, Denies fever, Denies lethargy, Denies malaise, Denies poor appetite, Denies weakness, Denies weight loss Eyes: denies decreased vision, denies diplopia, denies discharge, denies pain Ears: deny: decreased hearing Ears, nose, mouth and throat: Denies dental pain, Denies headache, Denies nasal discharge, Denies nose pain Cardiovascular: Denies chest pain, Denies decreased exercise tolerance, Denies edema, Denies high blood pressure, Denies irregular heart beat, Denies palpitations, Denies paroxysmal nocturnal dyspnea, Denies rapid heart beat, Denies shortness of breath Respiratory: Endorses congestion, endorses cough, endorses cough with sputum, endorses dyspnea, endorses home oxygen in the night 2 L, Denies wheezing Gastrointestinal: Denies abdominal pain, Denies change in bowel habits, Denies coffee ground emesis, Denies early satiety, Denies excessive gas, Denies heartburn, Denies hematemesis, Denies hematochezia, Denies loss of appetite, endorses nausea, endorses vomiting Genitourinary: Denies dysuria, Denies flank pain, Denies kidney stones, Denies menorrhagia, Denies urgency, Denies urinary frequency Musculoskeletal: Denies gait dysfunction, Denies limitation of motion, Denies morning stiffness, Denies muscle cramps Integumentary: Denies rash, Denies wounds, Denies brittle nails, Denies change in hair/nails, Denies darkening of skin Neurological: Denies balance difficulties, Denies change in speech, Denies double vision, Denies gait dysfunction, Denies loss of vision, Denies motor disturbance, Denies numbness, Denies paralysis, Denies paresthesias, Denies seizures Psychiatric: Denies anxiety, Denies depression Endocrine: Denies excessive sweating, Denies excessive thirst, Denies high blood sugars, Denies palpitations Hematologic/Lymphatic: Denies easy bruising, Denies lymphadenopathy Past Medical History Past Medical History: Atrial Fibrillation, Cancer, Heart Failure, GERD/Reflux, Pneumonia, Syncope Additional Past Medical History / Comment(s): melanoma cancer of the nose with removal, OCC PSORIASIS/DRY SKIN, NOW MILD ON BOTTOM FEET.SLIGHT STRESS INCONTINENCE @ TIMES,past carotid stenosis(sx) cardiomyopathy,02 2 liters n/c at hs and as needed,gout, past falls w/ fx to lt radial and pelvis in 4 spots". uti -esbl(ecoli 06-27-16) History of Any Multi-Drug Resistant Organisms: ESBL Date of last positivie culture/infection: 06/27/16 ESBL-E.coli MDRO Source:: Urine Past Surgical History: AICD, Hysterectomy, Pacemaker, Tubal Ligation Additional Past Surgical History / Comment(s): LT CAROTID ENDARTERECTOMY,AICD- [facility] [place] [facility] [place] 10/02/14 TO CHECK AICD Past Anesthesia/Blood Transfusion Reactions: Motion Sickness Additional Past Anesthesia/Blood Transfusion Reaction / Comment(s): clausterphobia Type of Cardiac Device: Permanent Pacemaker, AICD Device Placement Date:: per pt 05/04/16 Smoking Status: Former smoker - Past Family History Father Additional Family Medical History / Comment(s): Father from old age. Daughter(s) Additional Family Medical History / Comment(s): Patient has 2 adult children with no major medical problems. Mother Family Medical History: CVA/TIA Additional Family Medical History / Comment(s): Mother from old age. Medications and Allergies Home Medications Medication Instructions Recorded Confirmed Type Citalopram Hydrobromide [CeleXA] 40 mg PO HS@2100 07/16/14 02/18/18 History Ranitidine HCl [Zantac] 150 mg PO BID 06/27/16 02/18/18 History Rivaroxaban [Xarelto] 20 mg PO DAILY 06/27/16 02/18/18 History Aspirin EC [Ecotrin Low Dose] 81 mg PO DAILY 08/23/17 02/18/18 History Potassium Chloride ER [K-Dur 20] 40 meq PO DAILY 08/23/17 02/18/18 History Sennosides-Docusate Sodium 1 tab PO BID 08/23/17 02/18/18 History [Senokot-S] Spironolactone 50 mg PO DAILY 08/23/17 02/18/18 History Torsemide [Demadex] 80 mg PO DAILY 08/23/17 02/18/18 History ALPRAZolam [Xanax] 2 mg PO HS PRN 01/12/18 02/18/18 History Allopurinol [Zyloprim] 100 mg PO DAILY 01/12/18 02/18/18 History Metoprolol Succinate (ER) [Toprol 25 mg PO DAILY #30 tab.er.24h 01/13/18 Rx XL] Allergies Allergy/AdvReac Type Severity Reaction Status Date / Time cephalexin monohydrate Allergy Rash/Hives Verified 02/18/18 14:53 [From Keflex] levofloxacin [From Levaquin] Allergy Rash/Hives Verified 02/18/18 14:53 lisinopril Allergy Rash/Hives Verified 02/18/18 14:53 morphine Allergy Rash/Hives/ Verified 02/18/18 14:53 Sob warfarin [From Coumadin] Allergy Rash/Hives Verified 02/18/18 14:53 codeine AdvReac Nausea & Verified 02/18/18 14:53 Vomiting hydrocodone [From [place]] AdvReac Nausea & Verified 02/18/18 14:53 Vomiting ketorolac [From Toradol] AdvReac Dyspnea Verified 02/18/18 14:53 Physical Exam Vitals: Vital Signs Temp Pulse Resp BP Pulse Ox 02/18/18 21:15 97.9 F 02/18/18 20:40 118 H 17 145/76 96 02/18/18 20:11 102 H 02/18/18 20:10 100 21 103/59 100 02/18/18 20:03 98 02/18/18 19:57 97.7 F 101 H 22 112/67 92 L 02/18/18 18:14 91 18 108/58 94 L 02/18/18 17:28 78 02/18/18 17:14 73 02/18/18 17:00 97.6 F 79 18 104/58 90 L 02/18/18 13:51 98.2 F 62 16 93/69 93 L Intake and Output 02/18/18 02/18/18 02/18/18 06:59 14:59 22:59 Other: Weight 77.564 kg - Constitutional General appearance: cooperative, no acute distress, obese on 3 L of oxygen - EENT Eyes: anicteric sclerae, PERRLA, normal appearance ENT: hearing grossly normal - Neck Neck: no lymphadenopathy, normal ROM, no other, no rigidity, no stridor, no thyromegaly - Respiratory Respiratory: bilateral: Decreased air entry with bibasilar crackles worse in the right posterior lobe no wheezing on examination - Cardiovascular Rhythm: regular Heart sounds: normal: S1, S2 Abnormal Heart Sounds: no systolic murmur, no diastolic murmur, no rub, no S3 Gallop, no S4 Gallop, - Gastrointestinal General gastrointestinal: normal bowel sounds, soft, nontender - Integumentary Integumentary: no rash - Neurologic Neurologic: CNII-XII intact - Musculoskeletal Musculoskeletal: gait normal, strength equal bilaterally,cold extremity, perforated pulses palpable - Psychiatric Psychiatric: A&O x's 3, appropriate affect Results CBC & Chem 7: 02/18/18 14:50 02/18/18 14:50 Labs: Abnormal Lab Results - Last 24 Hours (Table) 02/18/18 02/18/18 02/18/18 Range/Units 14:50 14:50 14:50 Hgb 11.2 L (11.4-16.0) gm/dL RDW 16.2 H (11.5-15.5) % Sodium 132 L (137-145) mmol/L Carbon Dioxide 18 L (22-30) mmol/L BUN 43 H (7-17) mg/dL Creatinine 1.14 H (0.52-1.04) mg/dL Glucose 100 H (74-99) mg/dL POC Glucose (mg/dL) (75-99) mg/dL Plasma Lactic Acid Surya (0.7-2.0) mmol/L Magnesium 2.6 H (1.6-2.3) mg/dL Urine Blood Moderate H (Negative) Ur Leukocyte Esterase Moderate H (Negative) Urine Bacteria Occasional H (None) /hpf Urine Mucus Rare H (None) /hpf 02/18/18 02/18/18 Range/Units 20:18 21:19 Hgb (11.4-16.0) gm/dL RDW (11.5-15.5) % Sodium (137-145) mmol/L Carbon Dioxide (22-30) mmol/L BUN (7-17) mg/dL Creatinine (0.52-1.04) mg/dL Glucose (74-99) mg/dL POC Glucose (mg/dL) 133 H (75-99) mg/dL Plasma Lactic Acid Surya 2.4 H* (0.7-2.0) mmol/L Magnesium (1.6-2.3) mg/dL Urine Blood (Negative) Ur Leukocyte Esterase (Negative) Urine Bacteria (None) /hpf Urine Mucus (None) /hpf Thrombosis Risk Factor Assmnt - DVT/VTE Prophylaxis DVT/VTE Prophylaxis: Pharmacologic Prophylaxis ordered Assessment and Plan Plan: #1 sepsis with hemoptysis with shortness of breath acute hypoxic respiratory failure likely secondary to pneumonia. Other differential include CHF, bronchiectasis CT chest with IV contrast. Pulmonary consult. Continue DuoNeb as needed for shortness of breath. Zosyn and vancomycin for antibiotic coverage for healthcare associated pneumonia. Status post 1500 mL bolus in the ER lactic acid 2. 4 repeat every 6. No further IV fluids for concern for CHF. If no improvement patient need bronchoscopy #2 acute on chronic systolic congestive heart failure/nonischemic cardiomyopathy follow serial found with no records of coronary angioplasty in the chart last ejection fraction 30-35%. Patient does have a defibrillator which was interrogated and January 2080. BNP is elevated. Continue torsemide, spironolactone #3 paroxysmal atrial fibrillation continue metoprolol 25 mg by mouth daily with xarelto 15 mg by mouth daily. #4 history of depression continue citalopram 40 mg daily at bedtime History of gout continue allopurinol 100 mg by mouth daily #6 history of anxiety continue Xanax 0.5 mg at bedtime #7 lactic acidosis likely secondary to sepsis status post IV fluids. Repeat CMP in the morning. Lactic acid q h r #8 DVT prophylaxis was xarelto #9 GI prophylaxis with Pepcid 20 mg daily #10 code status full code #11 disposition patient may need 1-2 inpatient nightsf or stablization
[2018-02-18] MEDS ORDERED: VANCOMYCIN IV PER PHARMACY 1 EACH MISC MISCELLANE PRN (22:11)
[2018-02-18] MEDS ORDERED: RX INFO: IV CONTRAST WAS GIVEN 1 EACH MISC MISCELLANE PRN (22:14)
[2018-02-18] MEDS ORDERED: ACETAMINOPHEN TAB 325 MG TAB PO PRN (22:26)
[2018-02-18] MEDS ORDERED: NALOXONE 0.4 MG/ML 1 ML VIAL IV PRN (22:26)
[2018-02-18] MEDS: VANCOMYCIN 1,500 MG in SODIUM CHLORIDE 0.9% 250 ML IVPB SCH (23:22)
[2018-02-18] MEDS: DOCUSATE 100 MG CAP PO SCH (23:22)
[2018-02-18] MEDS: ALPRAZolam 0.5 MG TAB PO SCH (23:22)
[2018-02-19 00:11] LABS: Appearance,Urine Clear (Clear); Bilirubin,Urine Negative (Negative); Blood,Urine Negative (Negative); Color,Urine Colorless; Glucose,Urine (UA) Negative (Negative); Ketones,Urine Negative (Negative); Leukocyte Esterase,Urine Negative (Negative); Nitrite,Urine Negative (Negative); Protein,Urine Negative (Negative); Specific Gravity,Urine 1.008 (1.001-1.035); Urobilinogen,Urine <2.0 mg/dL (<2.0)
--- NOTE | 2018-02-19 00:30 | CT ---
EXAMINATION TYPE: CT chest w con DATE OF EXAM: 02/19/2018 COMPARISON: 05/19/2013 HISTORY: Prior on synapse, pneumonia, SYLWIA CT DLP: 691.00 mGycm Automated exposure control for dose reduction was used. CONTRAST: CT scan of the chest is performed with IV Contrast, patient injected with 80 mL of Isovue 300. There are 3-D post processed images. FINDINGS: There are bilateral pleural effusions. Heart is enlarged. There is bilateral lower lobe patchy pulmon karan airspace infiltrates. I see no pulmonary mass. There is normal contrast opacification of the pulm onary arteries. There are no filling defects. Thoracic aorta shows no evidence of aneurysm or dissect ion. There is atheromatous change. There are no hilar masses. There are a few bronchial lymph nodes t hat measure up to 1 cm. There are mediastinal paratracheal lymph nodes that measure up to 1 cm. The bony thorax appears intact. IMPRESSION: No evidence of pulmonary embolism. Cardiomegaly. Bilateral lower lobe pulmonary infiltra megan with pleural effusions. This could be congestive heart failure. This appears new compared to old CT scan. Nonspecific mild mediastinal and bronchial adenopathy. This is increased compared to old exa m. This is nonspecific and could relate to inflammatory disease.
[2018-02-19] MEDS: PIPERACILLIN-TAZOBACTAM 3.375 GM in DEXTROSE/WATER 1 50ML.BAG IVPB SCH ×3 (01:39→15:03)
[2018-02-19 04:54] LABS: Anisocytosis Slight; Basophils % (A) 0 %; Eosinophils # (A) 0.1 k/uL (0-0.7); Eosinophils % (A) 1 %; HCT 34.2 % (34.0-46.0); HGB 10.8 gm/dL (11.4-16.0); Hypochromasia Moderate; Lymphocytes % (A) 13 %; MCHC 31.6 g/dL (31.0-37.0); MCV 91.9 fL (80.0-100.0); Mean Platelet Volume 6.4; Monocytes # (A) 0.4 k/uL (0-1.0); Monocytes % (A) 4 %; Neutrophils # (A) 6.4 k/uL (1.3-7.7); Neutrophils % (A) 80 %; Platelet Count 249 k/uL (150-450); RBC 3.72 m/uL (3.80-5.40); RDW 16.2 % (11.5-15.5); WBC 8.1 k/uL (3.8-10.6)
[2018-02-19 05:05] LABS: Calcium 8.6 mg/dL (8.4-10.2); Magnesium 2.7 mg/dL (1.6-2.3); Phosphorus 4.6 mg/dL (2.5-4.5); Potassium 5.1 mmol/L (3.5-5.1)
[2018-02-19] MEDS ORDERED: FUROSEMIDE 10 MG/ML 10 ML VIAL IV STA (05:07)
[2018-02-19 05:17] LABS: Creatine Kinase MB 2.9 ng/mL (0.0-2.4); Troponin I 0.028 ng/mL (0.000-0.034)
--- NOTE | 2018-02-19 06:51 | XR ---
EXAMINATION TYPE: XR chest 1V DATE OF EXAM: 02/19/2018 HISTORY: Short of Breath. REFERENCE: Previous study dated 02/18/2018. FINDINGS: There is a multilead pacing device present on the left. The heart is enlarged. There is increased pulmonary vascularity and subtle interstitial change. There is left basilar airspace disease. This has worsened. There are small, bilateral effusions, worse on the left than the right. IMPRESSION: 1. CARDIOMEGALY. 2. WORSENING LEFT BASILAR AIRSPACE DISEASE. 3. BILATERAL EFFUSIONS. 4. FINDINGS CONSISTENT WITH CONGESTIVE HEART FAILURE.
[2018-02-19] MEDS: ALPRAZolam 0.5 MG TAB PO SCH (08:28)
[2018-02-19] MEDS: PANTOPRAZOLE 40 MG/10 ML VIAL IV SCH (08:28)
[2018-02-19] MEDS: DOCUSATE 100 MG CAP PO SCH ×2 (08:28→21:16)
[2018-02-19] MEDS ORDERED: AZITHROMYCIN 500 MG in SODIUM CHLORIDE 0.9% 250 ML IVPB SCH (09:00)
--- NOTE | 2018-02-19 09:48 | P.CNPUL ---
History of Present Illness Consult date: 02/19/18 Reason for consult: dyspnea, pneumonia History of present illness: A 72-year-old female patient who was brought into the emergency department because of worsening shortness of breath. Her history is a rather vague 1. She initially started having some nausea and emesis and subsequently she started having pain across her posterior chest worse with breathing in addition to cough and also blood-tinged sputum and worsening shortness of breath. She apparently went to primary care physician she was given a pain shot or a steroid shot and she was discharged home. Subsequently her condition got worse and she end up coming to the emergency department for worsening shortness of breath. No history of COPD. Most of asthma. Most of coronary artery disease pH is known to have congestion heart failure the patient has an AICD in place. In the emergency department, the patient was found to have some cardiomegaly on her chest x-ray and bilateral lower lobe pulmonary infiltrates. BNP level was elevated at 3000 range. Lactic acid level was at 2.4. She was given IV fluids around 1/2 L and the patient got transferred to the intensive care unit after being started on a combination of Zosyn and vancomycin. Nevertheless, overnight she became progressively more short of breath. She was placed on high flow oxygen. Initially she was at 3 L and she was brought up to 10 L. I was contacted overnight and I give the patient dose of Lasix 60 mg IV push. Subsequent she produced excellent amount of urine output in the order of 1 L as her shortness of breath improved. Currently she is on 8 L high flow and she is breathing easier and she is less short of breath. On examination she still having tach and lung bases bilaterally. CAT scan of the chest was done and there was no evidence of any pulmonary embolism. There was cardiomegaly and she has bilateral lower lobe pulmonary infiltrates with pleural effusions suggestive of congestion heart failure. Some nonspecific mediastinal lymph nodes are also seen. She is feeling better. The pain is subsided. She is on anticoagulation on long-term basis with Xarelto and aspirin. She is not having any hemoptysis for now. No previous history of DVT. No previous history of pulmonary embolism. She essentially runs a lower blood pressure and she claims that her blood pressure systolic runs in the mid 90s. No leukocytosis. Clear function is stable. Review of Systems Constitutional: Reports chronic pain, Reports fatigue, Reports poor appetite, Reports weakness Eyes: denies blurred vision, denies bulging eye, denies decreased vision Ears: deny: decreased hearing, ear discharge, earache, tinnitus Ears, nose, mouth and throat: Denies headache, Denies sore throat Cardiovascular: Reports chest pain, Reports decreased exercise tolerance, Reports dyspnea on exertion, Reports shortness of breath Respiratory: Reports cough, Reports dyspnea Gastrointestinal: Reports nausea, Reports vomiting Genitourinary: Denies dysuria, Denies hematuria Musculoskeletal: Denies myalgias Musculoskeletal: absent: ankle pain, ankle stiffness, ankle swelling Integumentary: Denies pruritus, Denies rash Neurological: Reports weakness Endocrine: Reports fatigue Hematologic/Lymphatic: Reports as per HPI Allergic/Immunologic: Reports as per HPI Past Medical History Past Medical History: Atrial Fibrillation, Cancer, Heart Failure, GERD/Reflux, Pneumonia, Syncope Additional Past Medical History / Comment(s): CHF and the patient has an AICD in place, chronic atrial fibrillation, acid reflux, previous history of melanoma involving the nose that has been resected, hypoxic respiratory failure patient claims to use oxygen overnight at 2 L, previous history of endocarditis stenosis, gout, history of falls, history of urine checked infection with E. coli and this was an ESBL producing organism back in June 2016, chronic anxiety History of Any Multi-Drug Resistant Organisms: ESBL Date of last positivie culture/infection: 06/27/16 ESBL-E.coli MDRO Source:: Urine Past Surgical History: AICD, Hysterectomy, Pacemaker, Tubal Ligation Additional Past Surgical History / Comment(s): LT CAROTID ENDARTERECTOMY,AICD- [facility] [place] [facility] [place] 10/02/14 TO CHECK AICD Past Anesthesia/Blood Transfusion Reactions: Motion Sickness Additional Past Anesthesia/Blood Transfusion Reaction / Comment(s): clausterphobia Type of Cardiac Device: Permanent Pacemaker, AICD Device Placement Date:: per pt 05/04/16 Smoking Status: Former smoker - Past Family History Father Additional Family Medical History / Comment(s): Father from old age. Daughter(s) Additional Family Medical History / Comment(s): Patient has 2 adult children with no major medical problems. Mother Family Medical History: CVA/TIA Additional Family Medical History / Comment(s): Mother from old age. Medications and Allergies Home Medications Medication Instructions Recorded Confirmed Type Citalopram Hydrobromide [CeleXA] 40 mg PO HS@2100 07/16/14 02/18/18 History Ranitidine HCl [Zantac] 150 mg PO BID 06/27/16 02/18/18 History Rivaroxaban [Xarelto] 20 mg PO DAILY 06/27/16 02/18/18 History Aspirin EC [Ecotrin Low Dose] 81 mg PO DAILY 08/23/17 02/18/18 History Potassium Chloride ER [K-Dur 20] 40 meq PO DAILY 08/23/17 02/18/18 History Sennosides-Docusate Sodium 1 tab PO BID 08/23/17 02/18/18 History [Senokot-S] Spironolactone 50 mg PO DAILY 08/23/17 02/18/18 History Torsemide [Demadex] 80 mg PO DAILY 08/23/17 02/18/18 History ALPRAZolam [Xanax] 2 mg PO HS PRN 01/12/18 02/18/18 History Allopurinol [Zyloprim] 100 mg PO DAILY 01/12/18 02/18/18 History Metoprolol Succinate (ER) [Toprol 25 mg PO DAILY #30 tab.er.24h 01/13/18 Rx XL] Allergies Allergy/AdvReac Type Severity Reaction Status Date / Time cephalexin monohydrate Allergy Rash/Hives Verified 02/18/18 14:53 [From Keflex] levofloxacin [From Levaquin] Allergy Rash/Hives Verified 02/18/18 14:53 lisinopril Allergy Rash/Hives Verified 02/18/18 14:53 morphine Allergy Rash/Hives/ Verified 02/18/18 14:53 Sob warfarin [From Coumadin] Allergy Rash/Hives Verified 02/18/18 14:53 codeine AdvReac Nausea & Verified 02/18/18 14:53 Vomiting hydrocodone [From [place]] AdvReac Nausea & Verified 02/18/18 14:53 Vomiting ketorolac [From Toradol] AdvReac Dyspnea Verified 02/18/18 14:53 Physical Exam Vitals: Vital Signs Temp Pulse Resp BP Pulse Ox 02/19/18 09:00 82 19 89/57 88 L 02/19/18 08:00 97.8 F 79 19 102/62 92 L 02/19/18 07:00 81 18 102/62 90 L 02/19/18 06:30 81 18 97/64 92 L 02/19/18 06:00 83 20 97/64 92 L 02/19/18 05:30 88 20 85/64 93 L 02/19/18 05:00 83 21 85/64 91 L 02/19/18 04:30 83 18 90/62 92 L 02/19/18 04:00 84 20 90/62 90 L 02/19/18 03:30 84 17 84/59 91 L 02/19/18 03:00 82 13 84/59 88 L 02/19/18 02:30 76 14 85/56 92 L 02/19/18 02:00 84 16 90/57 93 L 02/19/18 01:30 83 20 85/54 93 L 02/19/18 01:00 98.1 F 83 24 93/56 92 L 02/19/18 00:30 91 18 113/64 93 L 02/19/18 00:00 87 20 93/61 93 L 02/18/18 23:30 94 21 97/58 95 02/18/18 23:27 93 L 02/18/18 23:00 87 24 104/61 93 L 02/18/18 22:30 90 23 92/55 92 L 02/18/18 22:00 100 35 H 102/52 92 L 02/18/18 21:20 98.1 F 98 24 105/59 100 02/18/18 21:17 107 H 23 02/18/18 21:15 97.9 F 02/18/18 20:40 118 H 17 145/76 96 02/18/18 20:11 102 H 02/18/18 20:10 100 21 103/59 100 02/18/18 20:03 98 02/18/18 19:57 97.7 F 101 H 22 112/67 92 L 02/18/18 18:14 91 18 108/58 94 L 02/18/18 17:28 78 02/18/18 17:14 73 02/18/18 17:00 97.6 F 79 18 104/58 90 L 02/18/18 13:51 98.2 F 62 16 93/69 93 L Intake and Output 02/18/18 02/19/18 02/19/18 22:59 06:59 14:59 Intake Total 10 300.0 200 Output Total 0 1375 1475 Balance 10 -1075.0 -1275 Intake: IV 10 300.0 50 0.9 NaCl 10 Piperacillin-Tazobactam 3 50.0 50 .375 gm In Dextrose/Water 1 50ml.bag @ 12.5 mls/hr IVPB Q8HR [facility] Rx#: [id number] Vancomycin 1,500 mg In 250 Sodium Chloride 0.9% 250 ml @ 125 mls/hr IVPB Q24H [facility] Rx#:[id number] Oral 150 Output: Urine 0 1375 1475 Uretheral (Ortega) 275 Other: Voiding Method Bedpan Indwelling Catheter Indwelling Catheter Weight 81.6 kg 81.6 kg Gen. appearance she is calm and comfortable likely distress on high flow oxygen at 96 per minute nasal cannula Head exam was generally normal. There was no scleral icterus or corneal arcus. Mucous membranes were moist. Neck was supple and with jugular venous distension, thyromegaly, or carotid bruits. Carotids were easily palpable bilaterally. There was no adenopathy. Lungs sounds are diminished and there is some bibasilar crackles heard throughout the lung de la cruz especially in the mid and the lower lung de la cruz bilaterally Heart sounds are regular, positive sinusitis no significant murmurs appreciated. Abdominal exam revealed normal bowel sounds. The abdomen was soft, non-tender, and without masses, organomegaly, or appreciable enlargement of the abdominal aorta. Examination of the extremities revealed easily palpable radial, femoral and pedal pulses. There was no cyanosis, clubbing or edema. Examination of the skin revealed no evidence of significant rashes, suspicious appearing nevi or other concerning lesions. Neurologically the patient is awake and alert and is no focal neurological deficits Results - Laboratory Findings CBC and BMP: 02/19/18 04:41 02/19/18 04:41 PT/INR, D-dimer PT 10.2 sec (9.0-12.0) 02/18/18 14:50 INR 1.0 (<1.2) 02/18/18 14:50 Abnormal lab findings: Abnormal Labs 02/18/18 02/18/18 02/18/18 14:50 14:50 14:50 RBC Hgb 11.2 L RDW 16.2 H Sodium 132 L Chloride Carbon Dioxide 18 L BUN 43 H Creatinine 1.14 H Glucose 100 H POC Glucose (mg/dL) Plasma Lactic Acid Surya Phosphorus Magnesium 2.6 H CK-MB (CK-2) LDL Cholesterol, Calc Urine Blood Moderate H Ur Leukocyte Esterase Moderate H Urine Bacteria Occasional H Urine Mucus Rare H 02/18/18 02/18/18 02/19/18 20:18 21:19 04:41 RBC Hgb RDW Sodium Chloride Carbon Dioxide BUN Creatinine Glucose POC Glucose (mg/dL) 133 H Plasma Lactic Acid Surya 2.4 H* Phosphorus Magnesium CK-MB (CK-2) 2.9 H LDL Cholesterol, Calc Urine Blood Ur Leukocyte Esterase Urine Bacteria Urine Mucus 02/19/18 02/19/18 04:41 04:41 RBC 3.72 L Hgb 10.8 L RDW 16.2 H Sodium 134 L Chloride 110 H Carbon Dioxide 16 L BUN 33 H Creatinine Glucose 114 H POC Glucose (mg/dL) Plasma Lactic Acid Surya Phosphorus 4.6 H Magnesium 2.7 H CK-MB (CK-2) LDL Cholesterol, Calc 120 H Urine Blood Ur Leukocyte Esterase Urine Bacteria Urine Mucus - Diagnostic Findings Chest x-ray: image reviewed CT scan - chest: image reviewed Assessment and Plan Plan: Assessment 1 acute hypoxic respiratory failure 2 acute bilateral lower lobe pneumonia in addition to a CHF exacerbation resulting in significant shortness of breath and acute hypoxic respiratory failure, improving 3 pleuritic lower lobe chest pain, likely pneumonia and pulmonary embolism was ruled out based on the negative CT angios the chest 4 CHF with impairment of the LV function 5 paroxysmal atrial fibrillation current rhythm is sinus 6 long-term and to coagulation with Xarelto 7 melanoma resected 8 gout 9 remote history of ESBL producing urine checked infection with E. coli 10 history of recurrent artery disease Plan The Influence KVO. Continue with Diuresis and the Patient Will Be Placed on Lasix 20 Mg IV Push Every 12 Hours. Keep Same Antibiotic Coverage for Now. Awaiting Sputum Gram Stain and Culture. Awaiting Blood Culture. Wean down the FiO2 As Tolerated to Maintain a Saturation above 90%. Echocardiogram from January 2018 showed an ejection fraction of 30-35% and LV with severely dilated with mild concentric left ventricular hypertrophy. No significant valvular disease. We'll keep the patient ICU for further monitoring. We'll continue to follow.
[2018-02-19] MEDS ORDERED: FUROSEMIDE 10 MG/ML 2 ML VIAL IV STA (09:53)
[2018-02-19] MEDS: IPRATROPIUM-ALBUTEROL 3 ML NEB INHALATION PRN ×2 (12:08→19:50)
[2018-02-19 13:33] LABS: Hemoglobin A1C 5.2 % (4.0-6.0)
--- NOTE | 2018-02-19 13:47 | P.PN ---
Subjective Progress Note Date: 02/19/18 This is a 72year-old female. Her primary care physician is Dr. Basil Crowell. sees Dr. fletcher Jackson at [facility] She has a past medical history of hypertension, gastroesophageal reflux disease, carotid stenosis and non ischemic cardiomyopathy status post AICD with reported EF 30 -35 %, gout, anxiety and depression. She was recently hospitalized on June 08 following a fall secondary to dizziness with orthostatic changes ruled out. She ended up having a left radial fracture and left pelvic fracture. She was seen by orthopedics and they recommended splint and sling to the left arm and toe-touch weightbearing on the left lower extremity. Patient was again admitted on June 20 with confusion likely secondary to tramadol. She did present with history of passing out. AICD interrogation was done during the admission and found to have normal service function. Patient was again seen in 2017 with altered mental status sec to benzodiazepine which was held. Last seen on January done for acute chest pain. Stress test was done during that admission which suggested old infarct but no reversible ischemia. Patient comes in today with acute onset of shortness of breath and cough production that started yesterday. She had multiple episodes of vomiting this morning. Patient documents having blood-tinged sputum production. She denies any fever or chills. She denies any history of pulmonary embolism or DVT. She is currently on xarelto for paroxysmal atrial fibrillation. Vitals obtained in the ER suggestive of February.9 98 regular was briefly in atrial fibrillation, P respiratory rate of 21 with blood pressure 103/59. in the er suggestive wbc 6.1 hemoglobin 11.2, creatinine 1.14 which is close to patient's baseline (0.9- 1.2. Lactic acid 2.4, BNP 4000, UA clear of any infection. EKG suggestive T- wave inversion in lead V5 and V6 but no ST changes seen. Chest x-ray obtained suggested bibasilar infiltrates worse in the right lower lobe. Patient will be monitored in the ICU overnight for possible transfer to the floor in the morning. Antibiotics will be initiated for HCAP Coverage with Zosyn and vancomycin. Troponin 2 negative, we will repeat in 6 hours. Lactic acid was repeated every 6 hours 3. Patient received a bolus of 1500. Hold further IV fluids due to concern of CHF. CT chest with IV contrast will be obtained for concern of hemoptysis and possible need for bronchoscopy. Pulmonary consult follow up in the morning 02/19: Patient is feeling better today she continues to be somewhat short of breath, she did receive Lasix yesterday with significant diuresis, her x-ray significant for congestive heart failure, her computed tomography scan significant for bilateral lower lobe pneumonia, in the presence of mild hemoptysis I believe the patient has no coffee-ground emesis this is all related to her pneumonia. We will start the patient back in her Xarelto. Objective - Vital Signs Vital signs: Vital Signs Temp 98.1 F 02/19/18 01:00 Pulse 81 02/19/18 07:00 Resp 18 02/19/18 07:00 BP 102/62 02/19/18 07:00 Pulse Ox 90 L 02/19/18 07:00 Intake & Output 02/18/18 02/19/18 02/19/18 18:59 06:59 18:59 Intake Total 310.0 Output Total 1375 350 Balance -1065.0 -350 Weight 77.564 kg 81.6 kg Intake: IV 310.0 0.9 NaCl 10 Piperacillin-Tazobactam 3 50.0 .375 gm In Dextrose/Water 1 50ml.bag @ 12.5 mls/hr IVPB Q8HR [facility] Rx#: [id number] Vancomycin 1,500 mg In 250 Sodium Chloride 0.9% 250 ml @ 125 mls/hr IVPB Q24H [facility] Rx#:[id number] Output: Urine 1375 350 Other: Voiding Method Indwelling Catheter - Exam Constitutional General appearance: cooperative, no acute distress, obese on 3 L of oxygen - EENT Eyes: anicteric sclerae, PERRLA, normal appearance ENT: hearing grossly normal - Neck Neck: no lymphadenopathy, normal ROM, no other, no rigidity, no stridor, no thyromegaly - Respiratory Respiratory: bilateral: Decreased air entry with bibasilar crackles worse in the right posterior lobe no wheezing on examination - Cardiovascular Rhythm: regular Heart sounds: normal: S1, S2 Abnormal Heart Sounds: no systolic murmur, no diastolic murmur, no rub, no S3 Gallop, no S4 Gallop, - Gastrointestinal General gastrointestinal: normal bowel sounds, soft, nontender - Integumentary Integumentary: no rash - Neurologic Neurologic: CNII-XII intact - Musculoskeletal Musculoskeletal: gait normal, strength equal bilaterally,cold extremity, perforated pulses palpable - Psychiatric Psychiatric: A&O x's 3, appropriate affect - Labs CBC & Chem 7: 02/19/18 04:41 02/19/18 04:41 Labs: Abnormal Lab Results - Last 24 Hours (Table) 02/18/18 02/18/18 02/18/18 Range/Units 14:50 14:50 14:50 RBC (3.80-5.40) m/uL Hgb 11.2 L (11.4-16.0) gm/dL RDW 16.2 H (11.5-15.5) % Sodium 132 L (137-145) mmol/L Chloride (98-107) mmol/L Carbon Dioxide 18 L (22-30) mmol/L BUN 43 H (7-17) mg/dL Creatinine 1.14 H (0.52-1.04) mg/dL Glucose 100 H (74-99) mg/dL POC Glucose (mg/dL) (75-99) mg/dL Plasma Lactic Acid Surya (0.7-2.0) mmol/L Phosphorus (2.5-4.5) mg/dL Magnesium 2.6 H (1.6-2.3) mg/dL CK-MB (CK-2) (0.0-2.4) ng/mL LDL Cholesterol, Calc (0-99) mg/dL Urine Blood Moderate H (Negative) Ur Leukocyte Esterase Moderate H (Negative) Urine Bacteria Occasional H (None) /hpf Urine Mucus Rare H (None) /hpf 02/18/18 02/18/18 02/19/18 Range/Units 20:18 21:19 04:41 RBC (3.80-5.40) m/uL Hgb (11.4-16.0) gm/dL RDW (11.5-15.5) % Sodium (137-145) mmol/L Chloride (98-107) mmol/L Carbon Dioxide (22-30) mmol/L BUN (7-17) mg/dL Creatinine (0.52-1.04) mg/dL Glucose (74-99) mg/dL POC Glucose (mg/dL) 133 H (75-99) mg/dL Plasma Lactic Acid Surya 2.4 H* (0.7-2.0) mmol/L Phosphorus (2.5-4.5) mg/dL Magnesium (1.6-2.3) mg/dL CK-MB (CK-2) 2.9 H (0.0-2.4) ng/mL LDL Cholesterol, Calc (0-99) mg/dL Urine Blood (Negative) Ur Leukocyte Esterase (Negative) Urine Bacteria (None) /hpf Urine Mucus (None) /hpf 02/19/18 02/19/18 Range/Units 04:41 04:41 RBC 3.72 L (3.80-5.40) m/uL Hgb 10.8 L (11.4-16.0) gm/dL RDW 16.2 H (11.5-15.5) % Sodium 134 L (137-145) mmol/L Chloride 110 H (98-107) mmol/L Carbon Dioxide 16 L (22-30) mmol/L BUN 33 H (7-17) mg/dL Creatinine (0.52-1.04) mg/dL Glucose 114 H (74-99) mg/dL POC Glucose (mg/dL) (75-99) mg/dL Plasma Lactic Acid Surya (0.7-2.0) mmol/L Phosphorus 4.6 H (2.5-4.5) mg/dL Magnesium 2.7 H (1.6-2.3) mg/dL CK-MB (CK-2) (0.0-2.4) ng/mL LDL Cholesterol, Calc 120 H (0-99) mg/dL Urine Blood (Negative) Ur Leukocyte Esterase (Negative) Urine Bacteria (None) /hpf Urine Mucus (None) /hpf Assessment and Plan Assessment: Assessment and Plan Plan: #1 Acute hypoxemic respiratory failure due to Bilateral pneumonia with sepsis. Other differential include CHF, bronchiectasis CT chest with IV contrast. Pulmonary consult. Continue DuoNeb as needed for shortness of breath. Zosyn and vancomycin for antibiotic coverage for healthcare associated pneumonia. Status post 1500 mL bolus in the ER lactic acid 2. 4 repeat every 6. No further IV fluids for concern for CHF. If no improvement patient need bronchoscopy #2 acute on chronic systolic congestive heart failure/nonischemic cardiomyopathy follow serial found with no records of coronary angioplasty in the chart last ejection fraction 30-35%. Patient does have a defibrillator which was interrogated and January 2080. BNP is elevated. Continue torsemide, spironolactone. #3 Hematemesis vs hemoptysis. will continue to monitor CBC and will start PPI and GI consult just in case. #4 paroxysmal atrial fibrillation continue metoprolol 25 mg by mouth daily with xarelto 20 mg by mouth daily. #5 history of depression continue citalopram 40 mg daily at bedtime #6History of gout continue allopurinol 100 mg by mouth daily #7 history of anxiety continue Xanax 0.5 mg at bedtime #8 lactic acidosis likely secondary to sepsis status post IV fluids. Repeat CMP in the morning. Lactic acid q h r #9 DVT prophylaxis was xarelto #10 GI prophylaxis with Pepcid 20 mg daily #11 code status full code
[2018-02-19] MEDS ORDERED: NOREPINEPHRINE 16 MG in SODIUM CHLORIDE 0.9% 250 ML IV SCH (15:30)
[2018-02-19] MEDS: FUROSEMIDE 10 MG/ML 2 ML VIAL IV SCH (21:05)
[2018-02-19] MEDS: CITALOPRAM HYDROBROMIDE 20 MG TAB PO SCH (21:16)
[2018-02-19] MEDS: VANCOMYCIN 1,500 MG in SODIUM CHLORIDE 0.9% 250 ML IVPB SCH (22:28)
[2018-02-20] MEDS: ALPRAZolam 1 MG TAB PO PRN ×2 (00:02→21:53)
[2018-02-20] MEDS: PIPERACILLIN-TAZOBACTAM 3.375 GM in DEXTROSE/WATER 1 50ML.BAG IVPB SCH ×3 (00:02→15:06)
[2018-02-20 04:57] LABS: Anisocytosis Slight; Basophils % (A) 0 %; Eosinophils # (A) 0.1 k/uL (0-0.7); Eosinophils % (A) 1 %; HCT 32.4 % (34.0-46.0); HGB 10.2 gm/dL (11.4-16.0); Lymphocytes # (A) 1.2 k/uL (1.0-4.8); Lymphocytes % (A) 15 %; MCH 27.9 pg (25.0-35.0); MCHC 31.4 g/dL (31.0-37.0); MCV 88.9 fL (80.0-100.0); Mean Platelet Volume 6.7; Monocytes # (A) 0.5 k/uL (0-1.0); Monocytes % (A) 7 %; Neutrophils # (A) 6.1 k/uL (1.3-7.7); Neutrophils % (A) 76 %; Platelet Count 254 k/uL (150-450); RBC 3.64 m/uL (3.80-5.40); RDW 16.4 % (11.5-15.5)
[2018-02-20 05:13] LABS: Calcium 8.6 mg/dL (8.4-10.2); Magnesium 2.5 mg/dL (1.6-2.3); Phosphorus 3.3 mg/dL (2.5-4.5); Potassium 3.6 mmol/L (3.5-5.1)
[2018-02-20] MEDS ORDERED: Potassium Replacement Protocol 1 EACH MISC MISCELLANE PRN (05:19)
--- NOTE | 2018-02-20 06:46 | XR ---
EXAMINATION TYPE: XR chest 1V DATE OF EXAM: 02/20/2018 HISTORY: Short of Breath. REFERENCE: Previous study dated 02/19/2018. FINDINGS: There is a multilead pacing device in place on the left. The heart is enlarged. There is vascular congestion and pulmonary edema. There is left basilar airspa ce disease. I suspect small, bilateral effusions. IMPRESSION: 1. CONTINUING MILD CHANGES OF CONGESTIVE HEART FAILURE. 2. LEFT BASILAR AIRSPACE DISEASE. 3. SMALL, BILATERAL EFFUSIONS.
[2018-02-20] MEDS ORDERED: POTASSIUM CHLORIDE ER 20 MEQ TAB.ER PO SCH (08:00)
[2018-02-20] MEDS: RIVAROXABAN 20 MG TAB PO SCH (08:02)
[2018-02-20] MEDS: SPIRONOLACTONE 25 MG TAB PO SCH (09:03)
[2018-02-20] MEDS: ALPRAZolam 0.5 MG TAB PO SCH (09:03)
[2018-02-20] MEDS: FUROSEMIDE 10 MG/ML 2 ML VIAL IV SCH ×2 (09:03→20:36)
[2018-02-20] MEDS: PANTOPRAZOLE 40 MG/10 ML VIAL IV SCH (09:03)
[2018-02-20] MEDS: ASPIRIN 81 MG PO SCH (09:04)
[2018-02-20] MEDS: DOCUSATE 100 MG CAP PO SCH ×2 (09:04→20:35)
[2018-02-20] MEDS: ALLOPURINOL 100 MG TAB PO SCH (09:04)
--- NOTE | 2018-02-20 09:47 | P.PN ---
Subjective Progress Note Date: 02/20/18 This is a 72year-old female. Her primary care physician is Dr. Basil Crowell. sees Dr. fletcher Jackson at [facility] She has a past medical history of hypertension, gastroesophageal reflux disease, carotid stenosis and non ischemic cardiomyopathy status post AICD with reported EF 30 -35 %, gout, anxiety and depression. She was recently hospitalized on June 08 following a fall secondary to dizziness with orthostatic changes ruled out. She ended up having a left radial fracture and left pelvic fracture. She was seen by orthopedics and they recommended splint and sling to the left arm and toe-touch weightbearing on the left lower extremity. Patient was again admitted on June 20 with confusion likely secondary to tramadol. She did present with history of passing out. AICD interrogation was done during the admission and found to have normal service function. Patient was again seen in 2017 with altered mental status sec to benzodiazepine which was held. Last seen on January done for acute chest pain. Stress test was done during that admission which suggested old infarct but no reversible ischemia. Patient comes in today with acute onset of shortness of breath and cough production that started yesterday. She had multiple episodes of vomiting this morning. Patient documents having blood-tinged sputum production. She denies any fever or chills. She denies any history of pulmonary embolism or DVT. She is currently on xarelto for paroxysmal atrial fibrillation. Vitals obtained in the ER suggestive of February.9 98 regular was briefly in atrial fibrillation, P respiratory rate of 21 with blood pressure 103/59. in the er suggestive wbc 6.1 hemoglobin 11.2, creatinine 1.14 which is close to patient's baseline (0.9- 1.2. Lactic acid 2.4, BNP 4000, UA clear of any infection. EKG suggestive T- wave inversion in lead V5 and V6 but no ST changes seen. Chest x-ray obtained suggested bibasilar infiltrates worse in the right lower lobe. Patient will be monitored in the ICU overnight for possible transfer to the floor in the morning. Antibiotics will be initiated for HCAP Coverage with Zosyn and vancomycin. Troponin 2 negative, we will repeat in 6 hours. Lactic acid was repeated every 6 hours 3. Patient received a bolus of 1500. Hold further IV fluids due to concern of CHF. CT chest with IV contrast will be obtained for concern of hemoptysis and possible need for bronchoscopy. Pulmonary consult follow up in the morning 02/19: Patient is feeling better today she continues to be somewhat short of breath, she did receive Lasix yesterday with significant diuresis, her x-ray significant for congestive heart failure, her computed tomography scan significant for bilateral lower lobe pneumonia, in the presence of mild hemoptysis I believe the patient has no coffee-ground emesis this is all related to her pneumonia. We will start the patient back in her Xarelto. 02/20: Patient was on Levophed yesterday at 10 mics per hour she was taken off of it at 7:00 in the morning today she is feeling a lot better today she continues to require about 3 L of oxygen nasal cannula, she denies any chest pain or short of breath she continues to have some bloody tinged sputum, she has no abdominal pain, nausea or vomiting, she will stay in the ICU. Objective - Vital Signs Vital signs: Vital Signs Temp 98.0 F 02/20/18 04:15 Pulse 73 02/20/18 07:00 Resp 24 02/20/18 07:00 BP 98/64 02/20/18 07:00 Pulse Ox 93 L 02/20/18 07:00 Intake & Output 02/19/18 02/20/18 02/20/18 18:59 06:59 18:59 Intake Total 981.370 418.064 10 Output Total 3025 795 100 Balance -2043.630 -376.936 -90 Weight 82.3 kg 84.6 kg Intake: IV 112.5 382.5 10 0.9 NaCl 70 10 Piperacillin-Tazobactam 3 112.5 62.5 .375 gm In Dextrose/Water 1 50ml.bag @ 12.5 mls/hr IVPB Q8HR [facility] Rx#: [id number] Vancomycin 1,500 mg In 250 Sodium Chloride 0.9% 250 ml @ 125 mls/hr IVPB Q24H [facility] Rx#:[id number] Intake, IV Titration 18.870 35.564 Amount Norepinephrine 16 mg In 18.870 35.564 Sodium Chloride 0.9% 250 ml @ Titrate IV .Q0M [facility] Rx#:[id number] Oral 850 Output: Urine 3025 795 100 Uretheral (Ortega) 425 Other: Voiding Method Indwelling Catheter Indwelling Catheter - Exam Constitutional General appearance: cooperative, no acute distress, obese on 3 L of oxygen - EENT Eyes: anicteric sclerae, PERRLA, normal appearance ENT: hearing grossly normal - Neck Neck: no lymphadenopathy, normal ROM, no other, no rigidity, no stridor, no thyromegaly - Respiratory Respiratory: bilateral: Decreased air entry with bibasilar crackles worse in the right posterior lobe no wheezing on examination - Cardiovascular Rhythm: regular Heart sounds: normal: S1, S2 Abnormal Heart Sounds: no systolic murmur, no diastolic murmur, no rub, no S3 Gallop, no S4 Gallop, - Gastrointestinal General gastrointestinal: normal bowel sounds, soft, nontender - Integumentary Integumentary: no rash - Neurologic Neurologic: CNII-XII intact - Musculoskeletal Musculoskeletal: gait normal, strength equal bilaterally,cold extremity, perforated pulses palpable - Psychiatric Psychiatric: A&O x's 3, appropriate affect - Labs CBC & Chem 7: 02/20/18 04:34 02/20/18 04:34 Labs: Abnormal Lab Results - Last 24 Hours (Table) 02/20/18 02/20/18 Range/Units 04:34 04:34 RBC 3.64 L (3.80-5.40) m/uL Hgb 10.2 L (11.4-16.0) gm/dL Hct 32.4 L (34.0-46.0) % RDW 16.4 H (11.5-15.5) % Chloride 108 H (98-107) mmol/L BUN 21 H (7-17) mg/dL Glucose 113 H (74-99) mg/dL Magnesium 2.5 H (1.6-2.3) mg/dL Microbiology - Last 24 Hours (Table) 02/18/18 20:18 Blood Culture - Preliminary Blood No Growth after 24 hours 02/19/18 03:25 Gram Stain - Preliminary Sputum 02/18/18 22:45 Urine Culture - Preliminary Urine,Catheterized Assessment and Plan Assessment: Assessment and Plan Plan: #1 Acute hypoxemic respiratory failure due to Bilateral pneumonia with sepsis and acute systolic heart failure. Continue Lasix 20 mg IV push every 12 hours, continue the IV antibiotic, continue nebulized treatment, Levophed was discontinued, continue with the current management as per the ICU team. #2 acute on chronic systolic congestive heart failure/nonischemic cardiomyopathy follow serial found with no records of coronary angioplasty in the chart last ejection fraction 30-35%. Patient does have a defibrillator which was interrogated and January 2080. BNP is elevated. Continue torsemide, spironolactone. #3 Hematemesis vs hemoptysis. will continue to monitor CBC and will start PPI and GI consult just in case. #4 paroxysmal atrial fibrillation continue metoprolol 25 mg by mouth daily with xarelto 20 mg by mouth daily. #5 history of depression continue citalopram 40 mg daily at bedtime #6History of gout continue allopurinol 100 mg by mouth daily #7 history of anxiety continue Xanax 0.5 mg at bedtime #8 lactic acidosis likely secondary to sepsis status post IV fluids. Repeat CMP in the morning. Lactic acid q h r #9 DVT prophylaxis was xarelto #10 GI prophylaxis with Pepcid 20 mg daily #11 code status full code
--- NOTE | 2018-02-20 10:42 | P.PN ---
Subjective Progress Note Date: 02/20/18 A 72-year-old female patient who was brought into the emergency department because of worsening shortness of breath. Her history is a rather vague 1. She initially started having some nausea and emesis and subsequently she started having pain across her posterior chest worse with breathing in addition to cough and also blood-tinged sputum and worsening shortness of breath. She apparently went to primary care physician she was given a pain shot or a steroid shot and she was discharged home. Subsequently her condition got worse and she end up coming to the emergency department for worsening shortness of breath. No history of COPD. Most of asthma. Most of coronary artery disease pH is known to have congestion heart failure the patient has an AICD in place. In the emergency department, the patient was found to have some cardiomegaly on her chest x-ray and bilateral lower lobe pulmonary infiltrates. BNP level was elevated at 3000 range. Lactic acid level was at 2.4. She was given IV fluids around 1/2 L and the patient got transferred to the intensive care unit after being started on a combination of Zosyn and vancomycin. Nevertheless, overnight she became progressively more short of breath. She was placed on high flow oxygen. Initially she was at 3 L and she was brought up to 10 L. I was contacted overnight and I give the patient dose of Lasix 60 mg IV push. Subsequent she produced excellent amount of urine output in the order of 1 L as her shortness of breath improved. Currently she is on 8 L high flow and she is breathing easier and she is less short of breath. On examination she still having tach and lung bases bilaterally. CAT scan of the chest was done and there was no evidence of any pulmonary embolism. There was cardiomegaly and she has bilateral lower lobe pulmonary infiltrates with pleural effusions suggestive of congestion heart failure. Some nonspecific mediastinal lymph nodes are also seen. She is feeling better. The pain is subsided. She is on anticoagulation on long-term basis with Xarelto and aspirin. She is not having any hemoptysis for now. No previous history of DVT. No previous history of pulmonary embolism. She essentially runs a lower blood pressure and she claims that her blood pressure systolic runs in the mid 90s. No leukocytosis. Clear function is stable. On 02/20/2018, the patient is feeling better clinically. She is less short of breath. She has been weaned down to 2 by nasal cannula. The patient overnight became progressively more hypotensive. She had required pressors and she was requiring as high as 8 mics of norepinephrine infusion for blood pressure control. Subsequently urine output improved. Pressors were gradually weaned off as the patient is also being treated with accommodation of Zosyn and vancomycin. Her urine output improved. No pressure improved. Oxygenation is also improved and the patient is currently to 2 L about 2 by nasal cannula. Chest x-ray still showing bilateral lower lobe pulmonary infiltrates/CHF. No fever. No chills. She still cough and output some bloody mucus probably due to underlying pneumonia. Her metabolic acidosis also improved and the bicarb level is up to 22. Renal function is stable with a creatinine of 0.9. Cultures negative. Clinically she is awake and alert and following commands and answering questions appropriately. She denies having any chest pain. She reports improvement in her shortness of breath and symptoms of pneumonia and CHF. Objective - Vital Signs Vital signs: Vital Signs Temp 97.8 F 02/20/18 08:00 Pulse 81 02/20/18 10:00 Resp 17 02/20/18 10:00 BP 87/63 02/20/18 10:00 Pulse Ox 93 L 02/20/18 10:00 Intake & Output 02/19/18 02/20/18 02/20/18 18:59 06:59 18:59 Intake Total 981.370 418.064 297.5 Output Total 3025 795 575 Balance -2043.630 -376.936 -277.5 Weight 82.3 kg 84.6 kg 84.6 kg Intake: IV 112.5 382.5 47.5 0.9 NaCl 70 10 Piperacillin-Tazobactam 3 112.5 62.5 37.5 .375 gm In Dextrose/Water 1 50ml.bag @ 12.5 mls/hr IVPB Q8HR [facility] Rx#: [id number] Vancomycin 1,500 mg In 250 Sodium Chloride 0.9% 250 ml @ 125 mls/hr IVPB Q24H [facility] Rx#:[id number] Intake, IV Titration 18.870 35.564 Amount Norepinephrine 16 mg In 18.870 35.564 Sodium Chloride 0.9% 250 ml @ Titrate IV .Q0M [facility] Rx#:[id number] Oral 850 250 Output: Urine 3025 795 575 Uretheral (Ortega) 425 75 Other: Voiding Method Indwelling Catheter Indwelling Catheter Indwelling Catheter # Bowel Movements 1 - Exam Gen. appearance she is calm and comfortable likely distress on high flow oxygen at 96 per minute nasal cannula Head exam was generally normal. There was no scleral icterus or corneal arcus. Mucous membranes were moist. Neck was supple and with jugular venous distension, thyromegaly, or carotid bruits. Carotids were easily palpable bilaterally. There was no adenopathy. Lungs sounds are diminished and there is some bibasilar crackles heard throughout the lung de la cruz especially in the mid and the lower lung de la cruz bilaterally Heart sounds are regular, positive sinusitis no significant murmurs appreciated. Abdominal exam revealed normal bowel sounds. The abdomen was soft, non-tender, and without masses, organomegaly, or appreciable enlargement of the abdominal aorta. Examination of the extremities revealed easily palpable radial, femoral and pedal pulses. There was no cyanosis, clubbing or edema. Examination of the skin revealed no evidence of significant rashes, suspicious appearing nevi or other concerning lesions. Neurologically the patient is awake and alert and is no focal neurological deficits - Labs CBC & Chem 7: 02/20/18 04:34 02/20/18 04:34 Labs: Abnormal Lab Results - Last 24 Hours (Table) 02/20/18 02/20/18 Range/Units 04:34 04:34 RBC 3.64 L (3.80-5.40) m/uL Hgb 10.2 L (11.4-16.0) gm/dL Hct 32.4 L (34.0-46.0) % RDW 16.4 H (11.5-15.5) % Chloride 108 H (98-107) mmol/L BUN 21 H (7-17) mg/dL Glucose 113 H (74-99) mg/dL Magnesium 2.5 H (1.6-2.3) mg/dL Microbiology - Last 24 Hours (Table) 02/18/18 22:45 Urine Culture - Final Urine,Catheterized 02/18/18 20:18 Blood Culture - Preliminary Blood No Growth after 24 hours 02/19/18 03:25 Gram Stain - Preliminary Sputum Assessment and Plan Plan: Assessment 1 acute hypoxic respiratory failure, secondary to bilateral pneumonia along with a component of CHF which will be an acute on top of chronic CHF exacerbation. Clinically the patient is improving. Oxidation is also improved and the patient is currently on 2 L about 2 by nasal cannula. 2 acute bilateral lower lobe pneumonia in addition to a CHF exacerbation resulting in significant shortness of breath and acute hypoxic respiratory failure, improving 3 pleuritic lower lobe chest pain, likely pneumonia and pulmonary embolism was ruled out based on the negative CT angios the chest 4 CHF with impairment of the LV function 5 hypotension secondary to pneumonia/sepsis. The patient required pressors briefly yesterday and currently she is off pressors. The patient is maintaining her on blood pressure for now. 6 long-term and to coagulation with Xarelto 7 melanoma resected 8 gout 9 remote history of ESBL producing urine checked infection with E. coli 10 history of recurrent artery disease 11 paroxysmal atrial fibrillation current rhythm is sinus Plan Continue same antibiotic coverage. Obtain sputum Gram stain and culture. Monitor renal function. Monitor electrolytes. Repeat chest x-ray with next 24 hours. Gentle diuresis with IV Lasix. No need for pressors for now. We'll continue to follow and we'll give the patient ICU for another 24 hours. She is on long-term articulation with Xarelto. Lasix dose of 20 mg IV push every 12 hours.
[2018-02-20] MEDS: IPRATROPIUM-ALBUTEROL 3 ML NEB INHALATION PRN ×2 (11:25→16:51)
[2018-02-20] MEDS: CITALOPRAM HYDROBROMIDE 20 MG TAB PO SCH (20:36)
[2018-02-20] MEDS: VANCOMYCIN 1,500 MG in SODIUM CHLORIDE 0.9% 250 ML IVPB SCH (21:53)
[2018-02-21 05:28] LABS: Anisocytosis Slight; Basophils % (A) 1 %; Eosinophils # (A) 0.1 k/uL (0-0.7); Eosinophils % (A) 1 %; HCT 31.9 % (34.0-46.0); HGB 10.1 gm/dL (11.4-16.0); Hypochromasia Slight; Lymphocytes % (A) 16 %; MCH 28.7 pg (25.0-35.0); MCHC 31.8 g/dL (31.0-37.0); MCV 90.5 fL (80.0-100.0); Mean Platelet Volume 6.5; Monocytes # (A) 0.5 k/uL (0-1.0); Monocytes % (A) 7 %; Neutrophils # (A) 4.5 k/uL (1.3-7.7); Neutrophils % (A) 73 %; Platelet Count 240 k/uL (150-450); RBC 3.53 m/uL (3.80-5.40); RDW 16.6 % (11.5-15.5); WBC 6.2 k/uL (3.8-10.6)
[2018-02-21 05:41] LABS: Calcium 8.9 mg/dL (8.4-10.2); Magnesium 2.3 mg/dL (1.6-2.3); Phosphorus 3.4 mg/dL (2.5-4.5); Potassium 3.6 mmol/L (3.5-5.1)
[2018-02-21] MEDS ORDERED: Potassium Replacement Protocol 1 EACH MISC MISCELLANE PRN (05:43)
--- NOTE | 2018-02-21 07:11 | XR ---
EXAMINATION TYPE: XR chest 1V DATE OF EXAM: 02/21/2018 COMPARISON: 02/20/2018 HISTORY: 72-year-old female shortness of breath TECHNIQUE: Single frontal view of the chest is obtained. FINDINGS: Left anterior chest wall AICD generator with right atrial, right ventricular, and coronary sinus lead s. Heart remains mildly enlarged. Diffuse interstitial densities persist. Some patchy retrocardiac op acity is unchanged. No sizable pleural effusion seen on the frontal view IMPRESSION: 1. Stable mild cardiomegaly with interstitial changes, possible mild CHF. Clinical correlation recomm ended. 2. Patchy retrocardiac atelectasis and/or infiltrate persists.
[2018-02-21] MEDS ORDERED: POTASSIUM CHLORIDE ER 20 MEQ TAB.ER PO SCH (08:00)
[2018-02-21] MEDS: PIPERACILLIN-TAZOBACTAM 3.375 GM in DEXTROSE/WATER 1 50ML.BAG IVPB SCH ×3 (09:36→16:19)
[2018-02-21] MEDS: FUROSEMIDE 10 MG/ML 2 ML VIAL IV SCH ×2 (09:37→20:02)
[2018-02-21] MEDS: SPIRONOLACTONE 25 MG TAB PO SCH (09:38)
[2018-02-21] MEDS: PANTOPRAZOLE 40 MG/10 ML VIAL IV SCH (09:38)
[2018-02-21] MEDS: ASPIRIN 81 MG PO SCH (09:39)
[2018-02-21] MEDS: ALPRAZolam 0.5 MG TAB PO SCH (09:39)
[2018-02-21] MEDS: RIVAROXABAN 20 MG TAB PO SCH (09:39)
[2018-02-21] MEDS: ALLOPURINOL 100 MG TAB PO SCH (09:39)
[2018-02-21] MEDS: DOCUSATE 100 MG CAP PO SCH ×2 (09:40→20:03)
[2018-02-21] MEDS: IPRATROPIUM-ALBUTEROL 3 ML NEB INHALATION PRN ×3 (11:12→21:19)
--- NOTE | 2018-02-21 12:39 | P.PN ---
Subjective Progress Note Date: 02/21/18 Principal diagnosis: Acute hypoxic respiratory failure secondary to pneumonia and systolic congestive heart failure. A 72-year-old female patient who was brought into the emergency department because of worsening shortness of breath. Her history is a rather vague 1. She initially started having some nausea and emesis and subsequently she started having pain across her posterior chest worse with breathing in addition to cough and also blood-tinged sputum and worsening shortness of breath. She apparently went to primary care physician she was given a pain shot or a steroid shot and she was discharged home. Subsequently her condition got worse and she end up coming to the emergency department for worsening shortness of breath. No history of COPD. Most of asthma. Most of coronary artery disease pH is known to have congestion heart failure the patient has an AICD in place. In the emergency department, the patient was found to have some cardiomegaly on her chest x-ray and bilateral lower lobe pulmonary infiltrates. BNP level was elevated at 3000 range. Lactic acid level was at 2.4. She was given IV fluids around 1/2 L and the patient got transferred to the intensive care unit after being started on a combination of Zosyn and vancomycin. Nevertheless, overnight she became progressively more short of breath. She was placed on high flow oxygen. Initially she was at 3 L and she was brought up to 10 L. I was contacted overnight and I give the patient dose of Lasix 60 mg IV push. Subsequent she produced excellent amount of urine output in the order of 1 L as her shortness of breath improved. Currently she is on 8 L high flow and she is breathing easier and she is less short of breath. On examination she still having tach and lung bases bilaterally. CAT scan of the chest was done and there was no evidence of any pulmonary embolism. There was cardiomegaly and she has bilateral lower lobe pulmonary infiltrates with pleural effusions suggestive of congestion heart failure. Some nonspecific mediastinal lymph nodes are also seen. She is feeling better. The pain is subsided. She is on anticoagulation on long-term basis with Xarelto and aspirin. She is not having any hemoptysis for now. No previous history of DVT. No previous history of pulmonary embolism. She essentially runs a lower blood pressure and she claims that her blood pressure systolic runs in the mid 90s. No leukocytosis. Clear function is stable. On 02/20/2018, the patient is feeling better clinically. She is less short of breath. She has been weaned down to 2 by nasal cannula. The patient overnight became progressively more hypotensive. She had required pressors and she was requiring as high as 8 mics of norepinephrine infusion for blood pressure control. Subsequently urine output improved. Pressors were gradually weaned off as the patient is also being treated with accommodation of Zosyn and vancomycin. Her urine output improved. No pressure improved. Oxygenation is also improved and the patient is currently to 2 L about 2 by nasal cannula. Chest x-ray still showing bilateral lower lobe pulmonary infiltrates/CHF. No fever. No chills. She still cough and output some bloody mucus probably due to underlying pneumonia. Her metabolic acidosis also improved and the bicarb level is up to 22. Renal function is stable with a creatinine of 0.9. Cultures negative. Clinically she is awake and alert and following commands and answering questions appropriately. She denies having any chest pain. She reports improvement in her shortness of breath and symptoms of pneumonia and CHF. On 02/21/2018, patient was evaluated in the ICU, she is presently off norepinephrine, seems to be hemodynamically stable. Feeling much better, breathing a lot easier, remains on antibiotics, remains on diuretics. Hardly any cough, no wheezing, no shortness of breath, no chest pain, no nausea no vomiting no abdominal pain. Appetite reviewed she had a relatively normal CBC and the relatively normal basic metabolic profile. Objective - Vital Signs Vital signs: Vital Signs Temp 97.7 F 02/21/18 12:00 Pulse 92 02/21/18 12:00 Resp 20 02/21/18 12:00 BP 109/66 02/21/18 12:00 Pulse Ox 92 L 02/21/18 12:00 Intake & Output 02/20/18 02/21/18 02/21/18 18:59 06:59 18:59 Intake Total 790.0 370.0 475.0 Output Total 19745 295 Balance -1185.0 -1715.0 180.0 Weight 84.6 kg 86.4 kg Intake: IV 140.0 270.0 75.0 0.9 NaCl 40 70 50 Piperacillin-Tazobactam 3 100.0 75.0 25.0 .375 gm In Dextrose/Water 1 50ml.bag @ 12.5 mls/hr IVPB Q8HR [facility] Rx#: [id number] Vancomycin 1,500 mg In 125 Sodium Chloride 0.9% 250 ml @ 125 mls/hr IVPB Q24H [facility] Rx#:[id number] Oral 650 100 400 Output: Urine 1975 2085 295 Uretheral (Ortega) 325 Other: Voiding Method Indwelling Catheter Indwelling Catheter Indwelling Catheter # Bowel Movements 1 - Exam Physical Exam revealed a 72-year-old white female, pleasant, in no distress, on 2 L nasal cannula. Head: Atraumatic normocephalic. HEENT:[Neck is supple.] [No neck masses.] [No thyromegaly.] [No JVD.] PERRLA, EOMI, no icterus. Chest: [Normal fine crackles at the bases, no rhonchi, no wheezes, no chest wall tenderness..] Cardiac Exam: [Normal S1 and S2, no S3 gallop, no murmur.] Abdomen: [Soft, nontender, no megaly, no rebound, no guarding, normal bowel sounds.] Extremities: [No clubbing, no edema, no cyanosis.] Neurological Exam: [No focal neurologic deficit.] Lymphatics: No lymphadenopathy. Psychiatric: Normal mood affect and mental status examination. - Labs CBC & Chem 7: 02/21/18 04:48 02/21/18 04:48 Labs: Abnormal Lab Results - Last 24 Hours (Table) 02/21/18 02/21/18 Range/Units 04:48 04:48 RBC 3.53 L (3.80-5.40) m/uL Hgb 10.1 L (11.4-16.0) gm/dL Hct 31.9 L (34.0-46.0) % RDW 16.6 H (11.5-15.5) % Chloride 108 H (98-107) mmol/L Microbiology - Last 24 Hours (Table) 02/19/18 03:25 Gram Stain - Final Sputum Sputum Culture - Final 02/20/18 19:16 Gram Stain - Preliminary Sputum 02/18/18 20:18 Blood Culture - Preliminary Blood No Growth after 48 hours 02/18/18 22:45 Urine Culture - Final Urine,Catheterized Assessment and Plan Assessment: 1 acute hypoxic respiratory failure, secondary to bilateral pneumonia along with a component of CHF which will be an acute on top of chronic CHF exacerbation. Clinically the patient is improving. Oxidation is also improved and the patient is currently on 2 L about 2 by nasal cannula. 2 acute bilateral lower lobe pneumonia in addition to a CHF exacerbation resulting in significant shortness of breath and acute hypoxic respiratory failure, improving 3 pleuritic lower lobe chest pain, likely pneumonia and pulmonary embolism was ruled out based on the negative CT angios the chest 4 CHF with impairment of the LV function 5 hypotension secondary to pneumonia/sepsis. The patient required pressors briefly yesterday and currently she is off pressors. The patient is maintaining her on blood pressure for now. 6 long-term and to coagulation with Xarelto 7 melanoma resected 8 gout 9 remote history of ESBL producing urine checked infection with E. coli 10 history of recurrent artery disease 11 paroxysmal atrial fibrillation current rhythm is sinus Plan: Continue present antibiotics coverage, continue diuretics, monitor electrolytes, transfer out of the ICU to a monitor bed on selective, we will continue to follow. Time with Patient: Less than 30
--- NOTE | 2018-02-21 13:18 | P.PN ---
Subjective This is a 72 year-old female. Her primary care physician is Dr. Basil Crowell. Sees Dr. Real Jackson at [facility] She has a past medical history of hypertension, gastroesophageal reflux disease, carotid stenosis and non ischemic cardiomyopathy status post AICD with reported EF 30 -35 %, gout, anxiety and depression. She was recently hospitalized on June 08 following a fall secondary to dizziness with orthostatic changes ruled out. She ended up having a left radial fracture and left pelvic fracture. She was seen by orthopedics and they recommended splint and sling to the left arm and toe-touch weightbearing on the left lower extremity. Patient was again admitted on June 20 with confusion likely secondary to tramadol. She did present with history of passing out. AICD interrogation was done during the admission and found to have normal service function. Patient was again seen in 2017 with altered mental status sec to benzodiazepine which was held. Last seen on January done for acute chest pain. Stress test was done during that admission which suggested old infarct but no reversible ischemia. Patient comes in today with acute onset of shortness of breath and cough production that started yesterday. She had multiple episodes of vomiting this morning. Patient documents having blood-tinged sputum production. She denies any fever or chills. She denies any history of pulmonary embolism or DVT. She is currently on xarelto for paroxysmal atrial fibrillation. Vitals obtained in the ER, EKG was regular was and briefly in atrial fibrillation, P respiratory rate of 21 with blood pressure 103/59. in the er suggestive wbc 6.1 hemoglobin 11.2, creatinine 1.14 which is close to patient's baseline (0.9- 1.2. Lactic acid 2.4, BNP 4000, UA clear of any infection. EKG suggestive T- wave inversion in lead V5 and V6 but no ST changes seen. Chest x-ray obtained suggested bibasilar infiltrates worse in the right lower lobe. Patient will be monitored in the ICU overnight for possible transfer to the floor in the morning. Antibiotics will be initiated for HCAP Coverage with Zosyn and vancomycin. Troponin 2 negative, we will repeat in 6 hours. Lactic acid was repeated every 6 hours 3. Patient received a bolus of 1500. Hold further IV fluids due to concern of CHF. CT chest with IV contrast will be obtained for concern of hemoptysis and possible need for bronchoscopy. Pulmonary consult follow up in the morning 02/19: Patient is feeling better today she continues to be somewhat short of breath, she did receive Lasix yesterday with significant diuresis, her x-ray significant for congestive heart failure, her computed tomography scan significant for bilateral lower lobe pneumonia, in the presence of mild hemoptysis I believe the patient has no coffee-ground emesis this is all related to her pneumonia. We will start the patient back in her Xarelto. 02/20: Patient was on Levophed yesterday at 10 mics per hour she was taken off of it at 7:00 in the morning today she is feeling a lot better today she continues to require about 3 L of oxygen nasal cannula, she denies any chest pain or short of breath she continues to have some bloody tinged sputum, she has no abdominal pain, nausea or vomiting, she will stay in the ICU. 02/21: Patients reports she is feeling better today. She denies any shortness of breath or chest pain. Lovophed was stopped yesterday, blood pressure remains stable at 108/58. Blood and urine cultures show no growth to date. Sputum cultures are still pending. Repeat chest xray shows stable mild cardiomegaly with interstitial changes and patchy retrocardiac atelectasis/infiltrates. She will be moved off the ICU floor today if a bed is available to selective care. Objective - Vital Signs Vital signs: Vital Signs Temp 97.7 F 02/21/18 08:00 Pulse 81 02/21/18 09:00 Resp 26 H 02/21/18 09:00 BP 93/56 02/21/18 09:00 Pulse Ox 88 L 02/21/18 09:00 Intake & Output 02/20/18 02/21/18 02/21/18 18:59 06:59 18:59 Intake Total 790.0 370.0 20 Output Total 19745 70 Balance -1185.0 -1715.0 -50 Weight 84.6 kg 86.4 kg Intake: IV 140.0 270.0 20 0.9 NaCl 40 70 20 Piperacillin-Tazobactam 3 100.0 75.0 .375 gm In Dextrose/Water 1 50ml.bag @ 12.5 mls/hr IVPB Q8HR [facility] Rx#: [id number] Vancomycin 1,500 mg In 125 Sodium Chloride 0.9% 250 ml @ 125 mls/hr IVPB Q24H [facility] Rx#:[id number] Oral 650 100 Output: Urine 1974 Uretheral (Ortega) 325 Other: Voiding Method Indwelling Catheter Indwelling Catheter # Bowel Movements 1 - Exam - Exam Constitutional General appearance: cooperative, no acute distress, obese on 2 L of oxygen - EENT Eyes: anicteric sclerae, PERRLA, normal appearance ENT: hearing grossly normal - Neck Neck: no lymphadenopathy, normal ROM, no other, no rigidity, no stridor, no thyromegaly - Respiratory Respiratory: bilateral: Decreased air entry with bibasilar crackles worse in the right posterior lobe no wheezing on examination - Cardiovascular Rhythm: regular Heart sounds: normal: S1, S2 Abnormal Heart Sounds: no systolic murmur, no diastolic murmur, no rub, no S3 Gallop, no S4 Gallop, - Gastrointestinal General gastrointestinal: normal bowel sounds, soft, nontender - Integumentary Integumentary: no rash - Neurologic Neurologic: CNII-XII intact - Musculoskeletal Musculoskeletal: gait normal, strength equal bilaterally,cold extremity, perforated pulses palpable - Psychiatric Psychiatric: A&O x's 3, appropriate affect - Labs CBC & Chem 7: 02/21/18 04:48 02/21/18 04:48 Labs: Abnormal Lab Results - Last 24 Hours (Table) 02/21/18 02/21/18 Range/Units 04:48 04:48 RBC 3.53 L (3.80-5.40) m/uL Hgb 10.1 L (11.4-16.0) gm/dL Hct 31.9 L (34.0-46.0) % RDW 16.6 H (11.5-15.5) % Chloride 108 H (98-107) mmol/L Microbiology - Last 24 Hours (Table) 02/20/18 19:16 Gram Stain - Preliminary Sputum 02/18/18 20:18 Blood Culture - Preliminary Blood No Growth after 48 hours 02/18/18 22:45 Urine Culture - Final Urine,Catheterized Assessment and Plan Plan: #1 Acute hypoxemic respiratory failure due to Bilateral pneumonia with sepsis and acute systolic heart failure. Continue Lasix 20 mg IV push every 12 hours, continue the IV antibiotic, continue nebulized treatment, Levophed was discontinued, continue with the current management. #2 acute on chronic systolic congestive heart failure/nonischemic cardiomyopathy follow serial found with no records of coronary angioplasty in the chart last ejection fraction 30-35%. Patient does have a defibrillator which was interrogated in January 2018. BNP is elevated. Continue torsemide, spironolactone. #3 Hematemesis vs hemoptysis. will continue to monitor CBC and will start PPI and GI consult just in case. #4 paroxysmal atrial fibrillation continue metoprolol 25 mg by mouth daily with xarelto 20 mg by mouth daily. #5 history of depression continue citalopram 40 mg daily at bedtime #6History of gout continue allopurinol 100 mg by mouth daily #7 history of anxiety continue Xanax 0.5 mg at bedtime #8 lactic acidosis likely secondary to sepsis status post IV fluids. Repeat CMP. #9 DVT prophylaxis was xarelto #10 GI prophylaxis with Pepcid 20 mg daily #11 code status full code The above impression and plan of care have been discussed and directed by signing physician. Opal Ahmadi nurse practitioner acting as scribe for signing physician.
[2018-02-21] MEDS: CITALOPRAM HYDROBROMIDE 20 MG TAB PO SCH (21:41)
[2018-02-21] MEDS: ALPRAZolam 1 MG TAB PO PRN (21:41)
[2018-02-21] MEDS ORDERED: VANCOMYCIN TROUGH DUE 1 EACH MISC MISCELLANE ONE (22:00)
[2018-02-21] MEDS: VANCOMYCIN 1,500 MG in SODIUM CHLORIDE 0.9% 250 ML IVPB SCH (23:27)
[2018-02-22] MEDS: PIPERACILLIN-TAZOBACTAM 3.375 GM in DEXTROSE/WATER 1 50ML.BAG IVPB SCH ×4 (01:35→23:01)
[2018-02-22 05:28] LABS: Anisocytosis Slight; Basophils % (A) 0 %; Eosinophils # (A) 0.1 k/uL (0-0.7); Eosinophils % (A) 2 %; HGB 10.4 gm/dL (11.4-16.0); Lymphocytes # (A) 1.2 k/uL (1.0-4.8); Lymphocytes % (A) 20 %; MCH 28.5 pg (25.0-35.0); MCHC 32.4 g/dL (31.0-37.0); MCV 87.9 fL (80.0-100.0); Mean Platelet Volume 6.9; Monocytes # (A) 0.4 k/uL (0-1.0); Monocytes % (A) 6 %; Neutrophils # (A) 4.3 k/uL (1.3-7.7); Neutrophils % (A) 70 %; Platelet Count 277 k/uL (150-450); RBC 3.64 m/uL (3.80-5.40); RDW 16.3 % (11.5-15.5); WBC 6.2 k/uL (3.8-10.6)
[2018-02-22 05:51] LABS: Calcium 8.8 mg/dL (8.4-10.2); Magnesium 2.1 mg/dL (1.6-2.3); Phosphorus 3.7 mg/dL (2.5-4.5); Potassium 3.6 mmol/L (3.5-5.1)
[2018-02-22] MEDS: RIVAROXABAN 20 MG TAB PO SCH (06:49)
[2018-02-22] MEDS: IPRATROPIUM-ALBUTEROL 3 ML NEB INHALATION PRN ×4 (09:00→20:21)
[2018-02-22] MEDS: ASPIRIN 81 MG PO SCH (09:17)
[2018-02-22] MEDS: SPIRONOLACTONE 25 MG TAB PO SCH (09:18)
[2018-02-22] MEDS: ALPRAZolam 0.5 MG TAB PO SCH (09:18)
[2018-02-22] MEDS: PANTOPRAZOLE 40 MG/10 ML VIAL IV SCH (09:22)
[2018-02-22] MEDS: FUROSEMIDE 10 MG/ML 2 ML VIAL IV SCH ×2 (09:23→20:53)
[2018-02-22] MEDS: ALLOPURINOL 100 MG TAB PO SCH (09:32)
[2018-02-22] MEDS: DOCUSATE 100 MG CAP PO SCH ×2 (09:32→20:52)
--- NOTE | 2018-02-22 12:20 | P.PN ---
Subjective Progress Note Date: 02/22/18 Principal diagnosis: Acute hypoxic respiratory failure secondary to pneumonia and systolic congestive heart failure. A 72-year-old female patient who was brought into the emergency department because of worsening shortness of breath. Her history is a rather vague 1. She initially started having some nausea and emesis and subsequently she started having pain across her posterior chest worse with breathing in addition to cough and also blood-tinged sputum and worsening shortness of breath. She apparently went to primary care physician she was given a pain shot or a steroid shot and she was discharged home. Subsequently her condition got worse and she end up coming to the emergency department for worsening shortness of breath. No history of COPD. Most of asthma. Most of coronary artery disease pH is known to have congestion heart failure the patient has an AICD in place. In the emergency department, the patient was found to have some cardiomegaly on her chest x-ray and bilateral lower lobe pulmonary infiltrates. BNP level was elevated at 3000 range. Lactic acid level was at 2.4. She was given IV fluids around 1/2 L and the patient got transferred to the intensive care unit after being started on a combination of Zosyn and vancomycin. Nevertheless, overnight she became progressively more short of breath. She was placed on high flow oxygen. Initially she was at 3 L and she was brought up to 10 L. I was contacted overnight and I give the patient dose of Lasix 60 mg IV push. Subsequent she produced excellent amount of urine output in the order of 1 L as her shortness of breath improved. Currently she is on 8 L high flow and she is breathing easier and she is less short of breath. On examination she still having tach and lung bases bilaterally. CAT scan of the chest was done and there was no evidence of any pulmonary embolism. There was cardiomegaly and she has bilateral lower lobe pulmonary infiltrates with pleural effusions suggestive of congestion heart failure. Some nonspecific mediastinal lymph nodes are also seen. She is feeling better. The pain is subsided. She is on anticoagulation on long-term basis with Xarelto and aspirin. She is not having any hemoptysis for now. No previous history of DVT. No previous history of pulmonary embolism. She essentially runs a lower blood pressure and she claims that her blood pressure systolic runs in the mid 90s. No leukocytosis. Clear function is stable. On 02/20/2018, the patient is feeling better clinically. She is less short of breath. She has been weaned down to 2 by nasal cannula. The patient overnight became progressively more hypotensive. She had required pressors and she was requiring as high as 8 mics of norepinephrine infusion for blood pressure control. Subsequently urine output improved. Pressors were gradually weaned off as the patient is also being treated with accommodation of Zosyn and vancomycin. Her urine output improved. No pressure improved. Oxygenation is also improved and the patient is currently to 2 L about 2 by nasal cannula. Chest x-ray still showing bilateral lower lobe pulmonary infiltrates/CHF. No fever. No chills. She still cough and output some bloody mucus probably due to underlying pneumonia. Her metabolic acidosis also improved and the bicarb level is up to 22. Renal function is stable with a creatinine of 0.9. Cultures negative. Clinically she is awake and alert and following commands and answering questions appropriately. She denies having any chest pain. She reports improvement in her shortness of breath and symptoms of pneumonia and CHF. On 02/21/2018, patient was evaluated in the ICU, she is presently off norepinephrine, seems to be hemodynamically stable. Feeling much better, breathing a lot easier, remains on antibiotics, remains on diuretics. Hardly any cough, no wheezing, no shortness of breath, no chest pain, no nausea no vomiting no abdominal pain. Appetite reviewed she had a relatively normal CBC and the relatively normal basic metabolic profile. The patient was seen again today 02/22/2018 in follow-up on the selective care unit. She is awake and alert in no acute distress. She still has some dyspnea on exertion. She does have a productive cough with some blood-tinged sputum. Culture is pending. White count 6.2. Hemoglobin 10.4. Creatinine 0.94. Bicarb 23. She remains on the ankle myosin and Zosyn. Continued on IV diuretics. She is maintaining good O2 saturations in the 90s on 2 L/m per nasal cannula. Objective - Vital Signs Vital signs: Vital Signs Temp 99.2 F 02/22/18 08:00 Pulse 86 02/22/18 12:04 Resp 18 02/22/18 11:34 BP 100/63 02/22/18 08:00 Pulse Ox 93 L 02/22/18 09:00 Intake & Output 02/21/18 02/22/18 02/22/18 18:59 06:59 18:59 Intake Total 475.0 Output Total 495 1 Balance -20.0 -1 Weight 80.1 kg Intake: IV 75.0 0.9 NaCl 50 Piperacillin-Tazobactam 3 25.0 .375 gm In Dextrose/Water 1 50ml.bag @ 12.5 mls/hr IVPB Q8HR [facility] Rx#: [id number] Oral 400 Output: Urine 495 1 Other: Voiding Method Indwelling Catheter Toilet Toilet # Voids 2 - Exam Physical Exam revealed a 72-year-old white female, pleasant, in no distress, on 2 L nasal cannula. Head: Atraumatic normocephalic. HEENT:[Neck is supple.] [No neck masses.] [No thyromegaly.] [No JVD.] PERRLA, EOMI, no icterus. Chest: [Normal fine crackles at the bases, no rhonchi, no wheezes, no chest wall tenderness..] Cardiac Exam: [Normal S1 and S2, no S3 gallop, no murmur.] Abdomen: [Soft, nontender, no megaly, no rebound, no guarding, normal bowel sounds.] Extremities: [No clubbing, no edema, no cyanosis.] Neurological Exam: [No focal neurologic deficit.] Lymphatics: No lymphadenopathy. Psychiatric: Normal mood affect and mental status examination. - Labs CBC & Chem 7: 02/22/18 05:18 02/22/18 05:18 Labs: Abnormal Lab Results - Last 24 Hours (Table) 02/22/18 02/22/18 Range/Units 05:18 05:18 RBC 3.64 L (3.80-5.40) m/uL Hgb 10.4 L (11.4-16.0) gm/dL Hct 32.0 L (34.0-46.0) % RDW 16.3 H (11.5-15.5) % Glucose 106 H (74-99) mg/dL Microbiology - Last 24 Hours (Table) 02/18/18 20:18 Blood Culture - Preliminary Blood No Growth after 72 hours 02/20/18 19:16 Gram Stain - Preliminary Sputum Sputum Culture - Preliminary 02/19/18 03:25 Gram Stain - Final Sputum Sputum Culture - Final Assessment and Plan Assessment: 1 acute hypoxic respiratory failure, secondary to bilateral pneumonia along with a component of CHF which will be an acute on top of chronic CHF exacerbation. Clinically the patient is improving. Oxidation is also improved and the patient is currently on 2 L about 2 by nasal cannula. 2 acute bilateral lower lobe pneumonia in addition to a CHF exacerbation resulting in significant shortness of breath and acute hypoxic respiratory failure, improving 3 pleuritic lower lobe chest pain, likely pneumonia and pulmonary embolism was ruled out based on the negative CT angios the chest 4 CHF with impairment of the LV function 5 hypotension secondary to pneumonia/sepsis. The patient required pressors briefly yesterday and currently she is off pressors. The patient is maintaining her on blood pressure for now. 6 long-term and to coagulation with Xarelto 7 melanoma resected 8 gout 9 remote history of ESBL producing urine checked infection with E. coli 10 history of recurrent artery disease 11 paroxysmal atrial fibrillation current rhythm is sinus Plan: The patient is seen and evaluated by Dr. Fung. She is improved from the pulmonary and critical care standpoint. We'll continue with her current treatment plan for now. Increase her activity as tolerated. We'll continue to follow. I, the cosigning physician, performed a history & physical examination of the patient. Lungs sounds with crackles in the posterior bases. Maintaining good O2 saturations in the 90s on 2 L/m per nasal cannula. I discussed the assessment and plan of care with my nurse practitioner, Mari Ruano. I attest to the above note as dictated by her.
--- NOTE | 2018-02-22 12:27 | P.CRDCN ---
History of Present Illness Consult date: 02/22/18 Requesting physician: Ursula Mccullough Chief complaint: Shortness of breath History of present illness: This is a 72-year-old female who follows with Dr. Saleem at the [facility] for her cardiac needs. She has a known history of paroxysmal atrial fibrillation, nonischemic cardiomyopathy with prior AICD, peripheral arterial disease with prior carotid endarterectomy, hypertension, hyperlipidemia, prior history of smoking, she presents to the hospital on this occasion with symptoms of progressively worsening shortness of breath. According to the patient, she's also had and productive cough and episodes of vomiting. Chest x-ray on admission here showed bibasilar infiltrates and developing pneumonia. CT of the chest did not reveal any evidence for pulmonary embolism. It did show cardiomegaly with bilateral lower lobe infiltrates and pleural effusion. Nonspecific mild mediastinotomy and bronchial adenopathy increase as compared with prior exam. EKG shows a normal sinus rhythm with occasional PVCs. Subsequent chest x-ray showed cardiomegaly with worsening left basilar airspace disease, bilateral effusions, findings consistent with congestive heart failure. She was admitted primarily with diagnosis of sepsis with associated pneumonia and mild congestive heart failure and was initially in the intensive care unit. She is now being followed on the telemetry unit. She states that she's feeling much better overall, breathing is significantly improved, continues to be on antibiotics and IV diuretics. Her weight is down today, and she continues to diurese well on IV Lasix. Operatory data from today, white blood cell count 6.2, hemoglobin 10.4, platelet count 277. Sodium 138, potassium 3.6, BUN 17, creatinine 0.9. Magnesium 2.1. She continues to be on Aldactone, and xarelto. Because of hypotension in the intensive care unit she is not currently on a beta richmond or ANALIA inhibitor. Most recent echocardiogram with Doppler study was performed in January of this year which revealed an ejection fraction of 30-35%. Past Medical History Past Medical History: Atrial Fibrillation, Cancer, Heart Failure, GERD/Reflux, Pneumonia, Syncope Additional Past Medical History / Comment(s): CHF and the patient has an AICD in place, chronic atrial fibrillation, acid reflux, previous history of melanoma involving the nose that has been resected, hypoxic respiratory failure patient claims to use oxygen overnight at 2 L, previous history of endocarditis stenosis, gout, history of falls, history of urine checked infection with E. coli and this was an ESBL producing organism back in June 2016, chronic anxiety History of Any Multi-Drug Resistant Organisms: ESBL Date of last positivie culture/infection: 06/27/16 ESBL-E.coli MDRO Source:: Urine Past Surgical History: AICD, Hysterectomy, Pacemaker, Tubal Ligation Additional Past Surgical History / Comment(s): LT CAROTID ENDARTERECTOMY,AICD- [facility] [place] 10/02/14 TO CHECK AICD Past Anesthesia/Blood Transfusion Reactions: Motion Sickness Additional Past Anesthesia/Blood Transfusion Reaction / Comment(s): clausterphobia Type of Cardiac Device: Permanent Pacemaker, AICD Device Placement Date:: per pt 05/04/16 Smoking Status: Former smoker - Past Family History Father Additional Family Medical History / Comment(s): Father from old age. Daughter(s) Additional Family Medical History / Comment(s): Patient has 2 adult children with no major medical problems. Mother Family Medical History: CVA/TIA Additional Family Medical History / Comment(s): Mother from old age. Medications and Allergies Home Medications Medication Instructions Recorded Confirmed Type Citalopram Hydrobromide [CeleXA] 40 mg PO HS@2100 07/16/14 02/18/18 History Ranitidine HCl [Zantac] 150 mg PO BID 06/27/16 02/18/18 History Rivaroxaban [Xarelto] 20 mg PO DAILY 06/27/16 02/18/18 History Aspirin EC [Ecotrin Low Dose] 81 mg PO DAILY 08/23/17 02/18/18 History Potassium Chloride ER [K-Dur 20] 40 meq PO DAILY 08/23/17 02/18/18 History Sennosides-Docusate Sodium 1 tab PO BID 08/23/17 02/18/18 History [Senokot-S] Spironolactone 50 mg PO DAILY 08/23/17 02/18/18 History Torsemide [Demadex] 80 mg PO DAILY 08/23/17 02/18/18 History ALPRAZolam [Xanax] 2 mg PO HS PRN 01/12/18 02/18/18 History Allopurinol [Zyloprim] 100 mg PO DAILY 01/12/18 02/18/18 History Metoprolol Succinate (ER) [Toprol 25 mg PO DAILY #30 tab.er.24h 01/13/18 Rx XL] Allergies Allergy/AdvReac Type Severity Reaction Status Date / Time cephalexin monohydrate Allergy Rash/Hives Verified 02/18/18 14:53 [From Keflex] levofloxacin [From Levaquin] Allergy Rash/Hives Verified 02/18/18 14:53 lisinopril Allergy Rash/Hives Verified 02/18/18 14:53 morphine Allergy Rash/Hives/ Verified 02/18/18 14:53 Sob warfarin [From Coumadin] Allergy Rash/Hives Verified 02/18/18 14:53 codeine AdvReac Nausea & Verified 02/18/18 14:53 Vomiting hydrocodone [From [place]] AdvReac Nausea & Verified 02/18/18 14:53 Vomiting ketorolac [From Toradol] AdvReac Dyspnea Verified 02/18/18 14:53 Physical Exam Vitals: Vital Signs Temp Pulse Pulse Pulse Resp BP BP 02/22/18 12:04 86 02/22/18 11:34 18 02/22/18 10:23 92 18 02/22/18 09:12 90 02/22/18 09:00 88 02/22/18 08:00 99.2 F 92 92 18 100/63 02/22/18 04:00 97.4 F L 79 16 93/62 02/22/18 00:00 97.5 F L 91 18 107/54 02/21/18 21:26 88 02/21/18 21:19 92 02/21/18 20:00 97.5 F L 89 18 120/62 02/21/18 16:00 98.0 F 93 22 100/66 02/21/18 15:00 103 H 30 H 101/57 02/21/18 14:54 91 02/21/18 14:43 88 02/21/18 14:00 92 25 H 113/58 02/21/18 13:00 110 H 29 H 111/70 Pulse Ox 02/22/18 12:04 02/22/18 11:34 02/22/18 10:23 02/22/18 09:12 02/22/18 09:00 93 L 02/22/18 08:00 90 L 02/22/18 04:00 94 L 02/22/18 00:00 95 02/21/18 21:26 02/21/18 21:19 02/21/18 20:00 93 L 02/21/18 16:00 91 L 02/21/18 15:00 90 L 02/21/18 14:54 02/21/18 14:43 02/21/18 14:00 92 L 02/21/18 13:00 94 L Intake and Output 02/21/18 02/22/18 02/22/18 22:59 06:59 14:59 Output Total 1 Balance -1 Output: Urine 1 Other: Voiding Method Toilet Toilet Toilet # Voids 2 Weight 80.1 kg PHYSICAL EXAMINATION: GENERAL: 72-year-old female in no acute distress at the time of my examination HEENT: Head is atraumatic, normocephalic. Pupils equal, round. Sclera anicteric. Conjunctiva are clear. Mucous membranes of the mouth are moist. Neck is supple. There is no elevated jugular venous pressure. No carotid bruit is heard. HEART EXAMINATION: Heart S1 and S2 systolic ejection murmur is heard. CHEST EXAMINATION: Lungs reveal fine crackles to bilateral bases. ABDOMEN: Soft, nontender. Bowel sounds are heard. No organomegaly noted. EXTREMITIES: 2+ peripheral pulses with no evidence of peripheral edema and no calf tenderness noted. NEUROLOGIC patient is awake, alert and oriented X3. . Results 02/22/18 05:18 02/22/18 05:18 CBC 02/22/18 Range/Units 05:18 WBC 6.2 (3.8-10.6) k/uL RBC 3.64 L (3.80-5.40) m/uL Hgb 10.4 L (11.4-16.0) gm/dL Hct 32.0 L (34.0-46.0) % Plt Count 277 (150-450) k/uL Comprehensive Metabolic Panel 02/22/18 Range/Units 05:18 Sodium 138 (137-145) mmol/L Potassium 3.6 (3.5-5.1) mmol/L Chloride 107 (98-107) mmol/L Carbon Dioxide 23 (22-30) mmol/L BUN 17 (7-17) mg/dL Creatinine 0.94 (0.52-1.04) mg/dL Glucose 106 H (74-99) mg/dL Calcium 8.8 (8.4-10.2) mg/dL Current Medications Generic Name Dose Route Start Last Admin Trade Name Freq PRN Reason Stop Dose Admin Acetaminophen 650 mg 02/18/18 22:26 02/19/18 02:09 Tylenol Tab PO 650 mg Q4HR PRN Administration Fever and/or Mild Pain Albuterol/Ipratropium 3 ml 02/18/18 16:36 02/22/18 12:04 Duoneb 0.5 Mg-3 Mg/3 Ml Soln INHALATION 3 ml RT-Q4H PRN Administration shortness of breath Allopurinol 100 mg 02/20/18 09:00 02/22/18 09:32 Zyloprim PO Not Given DAILY LULA Alprazolam 0.5 mg 02/18/18 22:15 02/22/18 09:18 Xanax PO 0.5 mg DAILY LULA Administration Alprazolam 2 mg 02/19/18 09:49 02/21/18 21:41 Xanax PO 2 mg HS PRN Administration Anxiety Aspirin 81 mg 02/20/18 09:00 02/22/18 09:17 Aspirin PO 81 mg DAILY LULA Administration Citalopram Hydrobromide 40 mg 02/19/18 21:00 02/21/18 21:41 Celexa PO 40 mg HS@2100 LULA Administration Docusate Sodium 100 mg 02/18/18 22:30 02/22/18 09:32 Colace PO Not Given BID LULA Furosemide 20 mg 02/19/18 21:00 02/22/18 09:23 Lasix IV 20 mg Q12HR LULA Administration Piperacillin/Tazobactam/ 50 mls @ 12.5 mls/hr 02/19/18 00:00 02/22/18 10:48 Dextrose 3.375 gm/ IV Solution IVPB 03/01/18 00:01 12.5 mls/hr Q8HR LULA Administration Vancomycin HCl 1,500 mg/ 250 mls @ 125 mls/hr 02/22/18 14:00 Sodium Chloride IVPB Q24H LULA Miscellaneous Information 1 each 02/18/18 16:36 Pneumonia Protocol Utilized PO ONCE PRN Per Protocol Miscellaneous Information 1 each 02/21/18 05:43 Potassium Per Protocol MISCELLANE DAILY PRN Per Protocol Protocol Naloxone HCl 0.2 mg 02/18/18 22:26 Narcan IV Q2M PRN Opioid Reversal Nitroglycerin 0.4 mg 02/18/18 16:31 Nitrostat SUBLINGUAL Q5M PRN Chest Pain Pantoprazole Sodium 40 mg 02/19/18 09:00 02/22/18 09:22 Protonix IV 40 mg DAILY LULA Administration Rivaroxaban 20 mg 02/20/18 07:30 02/22/18 06:49 Xarelto PO 20 mg W/BRKFST LULA Administration Spironolactone 50 mg 02/20/18 09:00 02/22/18 09:18 Aldactone PO 50 mg DAILY LULA Administration Intake and Output 02/21/18 02/22/18 02/22/18 22:59 06:59 14:59 Output Total 1 Balance -1 Output: Urine 1 Other: Voiding Method Toilet Toilet Toilet # Voids 2 Weight 80.1 kg 02/22/18 05:18 02/22/18 05:18 EKG Interpretations (text) EKG shows a normal sinus rhythm with nonspecific ST-T wave changes Assessment and Plan Plan: Assessment and plan #1 acute hypoxic respiratory failure secondary to bilateral pneumonia as well as systolic congestive heart failure acute on chronic. #2 nonischemic cardiomyopathy, most recent echocardiogram with Doppler study was performed in January which revealed an ejection fraction of 35%. #3 hypotension, likely secondary to pneumonia and sepsis. Patient is currently not on beta richmond or ANALIA inhibitor because of that. #4 paroxysmal atrial fibrillation, on Xarelto for anticoagulation #5 PAD with prior carotid endarterectomy #6 anxiety #7 hyperlipidemia Plan From cardiology's perspective, we'll continue current dose of IV Lasix. As blood pressure improves we will try to initiate beta richmond and ANALIA inhibitor, continue Aldactone. DNP note has been reviewed, I agree with a documented findings and plan of care. Patient was seen and examined.
--- NOTE | 2018-02-22 12:57 | P.PN ---
Subjective Progress Note Date: 02/22/18 This is a 72 year-old female. Her primary care physician is Dr. Basil Crowell. Sees Dr. Real Jackson at [facility] She has a past medical history of hypertension, gastroesophageal reflux disease, carotid stenosis and non ischemic cardiomyopathy status post AICD with reported EF 30 -35 %, gout, anxiety and depression. She was recently hospitalized on June 08 following a fall secondary to dizziness with orthostatic changes ruled out. She ended up having a left radial fracture and left pelvic fracture. She was seen by orthopedics and they recommended splint and sling to the left arm and toe-touch weightbearing on the left lower extremity. Patient was again admitted on June 20 with confusion likely secondary to tramadol. She did present with history of passing out. AICD interrogation was done during the admission and found to have normal service function. Patient was again seen in 2017 with altered mental status sec to benzodiazepine which was held. Last seen on January done for acute chest pain. Stress test was done during that admission which suggested old infarct but no reversible ischemia. Patient comes in today with acute onset of shortness of breath and cough production that started yesterday. She had multiple episodes of vomiting this morning. Patient documents having blood-tinged sputum production. She denies any fever or chills. She denies any history of pulmonary embolism or DVT. She is currently on xarelto for paroxysmal atrial fibrillation. Vitals obtained in the ER, EKG was regular was and briefly in atrial fibrillation, P respiratory rate of 21 with blood pressure 103/59. in the er suggestive wbc 6.1 hemoglobin 11.2, creatinine 1.14 which is close to patient's baseline (0.9- 1.2. Lactic acid 2.4, BNP 4000, UA clear of any infection. EKG suggestive T- wave inversion in lead V5 and V6 but no ST changes seen. Chest x-ray obtained suggested bibasilar infiltrates worse in the right lower lobe. Patient will be monitored in the ICU overnight for possible transfer to the floor in the morning. Antibiotics will be initiated for HCAP Coverage with Zosyn and vancomycin. Troponin 2 negative, we will repeat in 6 hours. Lactic acid was repeated every 6 hours 3. Patient received a bolus of 1500. Hold further IV fluids due to concern of CHF. CT chest with IV contrast will be obtained for concern of hemoptysis and possible need for bronchoscopy. Pulmonary consult follow up in the morning 02/19: Patient is feeling better today she continues to be somewhat short of breath, she did receive Lasix yesterday with significant diuresis, her x-ray significant for congestive heart failure, her computed tomography scan significant for bilateral lower lobe pneumonia, in the presence of mild hemoptysis I believe the patient has no coffee-ground emesis this is all related to her pneumonia. We will start the patient back in her Xarelto. 02/20: Patient was on Levophed yesterday at 10 mics per hour she was taken off of it at 7:00 in the morning today she is feeling a lot better today she continues to require about 3 L of oxygen nasal cannula, she denies any chest pain or short of breath she continues to have some bloody tinged sputum, she has no abdominal pain, nausea or vomiting, she will stay in the ICU. 02/21: Patients reports she is feeling better today. She denies any shortness of breath or chest pain. Lovophed was stopped yesterday, blood pressure remains stable at 108/58. Blood and urine cultures show no growth to date. Sputum cultures are still pending. Repeat chest xray shows stable mild cardiomegaly with interstitial changes and patchy retrocardiac atelectasis/infiltrates. She will be moved off the ICU floor today if a bed is available to selective care. 02/22: Pulse ox is running 90-93% on 2 L nasal cannula. Patient has been afebrile. White count is normal, hemoglobin stable at 10.4. Electrolytes are all within normal limits. Patient is continued on IV Zosyn and vancomycin. Beta richmond has been on hold due to hypotension. Patient continues to have shortness of breath although she is improved from Wednesday she does not feel any improvement since yesterday. Lower extremity edema is improved. Patient has had loose stool. PT and OT has been added to evaluate for rehab. Objective - Vital Signs Vital signs: Vital Signs Temp 97.4 F L 02/22/18 04:00 Pulse 79 02/22/18 04:00 Resp 16 02/22/18 04:00 BP 93/62 02/22/18 04:00 Pulse Ox 94 L 02/22/18 04:00 Intake & Output 09/17/18 09/18/18 09/18/18 18:59 06:59 18:59 Intake Total 475.0 Output Total 495 1 Balance -20.0 -1 Weight 80.1 kg Intake: IV 75.0 0.9 NaCl 50 Piperacillin-Tazobactam 3 25.0 .375 gm In Dextrose/Water 1 50ml.bag @ 12.5 mls/hr IVPB Q8HR LULA Rx#: [id number] Oral 400 Output: Urine 495 1 Other: Voiding Method Indwelling Catheter Toilet # Voids 2 - Exam General appearance: cooperative, no acute distress, obese on 2 L of oxygen - EENT Eyes: anicteric sclerae, PERRLA, normal appearance ENT: hearing grossly normal - Neck Neck: no lymphadenopathy, normal ROM, no other, no rigidity, no stridor, no thyromegaly - Respiratory Respiratory: bilateral: Decreased air entry with bibasilar crackles worse in the right posterior lobe no wheezing on examination - Cardiovascular Rhythm: regular Heart sounds: normal: S1, S2 Abnormal Heart Sounds: no systolic murmur, no diastolic murmur, no rub, no S3 Gallop, no S4 Gallop, - Gastrointestinal General gastrointestinal: normal bowel sounds, soft, nontender - Integumentary Integumentary: no rash - Neurologic Neurologic: CNII-XII intact - Musculoskeletal Musculoskeletal: gait normal, strength equal bilaterally,cold extremity, perforated pulses palpable - Psychiatric Psychiatric: A&O x's 3, appropriate affect - Labs CBC & Chem 7: 02/22/18 05:18 02/22/18 05:18 Labs: Abnormal Lab Results - Last 24 Hours (Table) 02/22/18 02/22/18 Range/Units 05:18 05:18 RBC 3.64 L (3.80-5.40) m/uL Hgb 10.4 L (11.4-16.0) gm/dL Hct 32.0 L (34.0-46.0) % RDW 16.3 H (11.5-15.5) % Glucose 106 H (74-99) mg/dL Microbiology - Last 24 Hours (Table) 02/18/18 20:18 Blood Culture - Preliminary Blood No Growth after 72 hours 02/20/18 19:16 Gram Stain - Preliminary Sputum Sputum Culture - Preliminary 02/19/18 03:25 Gram Stain - Final Sputum Sputum Culture - Final Assessment and Plan Plan: 1. Acute hypoxemic respiratory failure due to Bilateral pneumonia with sepsis and acute systolic heart failure. Continue Lasix 20 mg IV push every 12 hours, continue the IV Zosyn and vancomycin, continue nebulized treatment, Levophed was discontinued, continue with the current management. Consult pulmonary medicine is appreciated. 2. Acute on chronic systolic congestive heart failure and nonischemic cardiomyopathy with known ejection fraction of 30-35% status post defibrillator which was interrogated in January 2018. BNP is elevated. Continue Lasix and spironolactone. 3. Hypotension secondary to septic shock. Continue treatment for pneumonia. Patient is off vasopressors. Dr. Fung is following for intensive care management and pulmonary medicine. 4. Hematemesis vs hemoptysis. Continue Protonix. 5. Paroxysmal atrial fibrillation. Lopressor is on hold due to hypotension. Continue Xarelto 20 mg by mouth daily. 6. Recurrent depression. Continue citalopram 40 mg daily at bedtime. 7. Gout, stable. Continue allopurinol 8. Generalized anxiety disorder. Continue Xanax 0.5 mg daily and 2 mg at bedtime as needed at bedtime 9. Lactic acidosis likely secondary to sepsis status post IV fluids. Repeat CMP. 10. DVT prophylaxis was xarelto 11. GI prophylaxis with Pepcid 20 mg daily CODE STATUS: Full code Discharge plan: PT and OT added. Impression and plan of care have been directed as dictated by the signing physician. Nancy Olivera nurse practitioner acting as scribe for signing physician.
[2018-02-22] MEDS: VANCOMYCIN 1,500 MG in SODIUM CHLORIDE 0.9% 250 ML IVPB SCH (15:34)
[2018-02-22] MEDS: CITALOPRAM HYDROBROMIDE 20 MG TAB PO SCH (20:52)
[2018-02-23] MEDS: ALPRAZolam 1 MG TAB PO PRN ×2 (00:27→17:23)
[2018-02-23] MEDS: RIVAROXABAN 20 MG TAB PO SCH (06:31)
[2018-02-23 07:13] LABS: Anisocytosis Slight; Basophils # (A) 0.1 k/uL (0-0.2); Basophils % (A) 1 %; Eosinophils # (A) 0.1 k/uL (0-0.7); Eosinophils % (A) 2 %; HCT 33.1 % (34.0-46.0); HGB 10.5 gm/dL (11.4-16.0); Hypochromasia Slight; Lymphocytes % (A) 13 %; MCH 28.3 pg (25.0-35.0); MCHC 31.8 g/dL (31.0-37.0); Mean Platelet Volume 6.8; Monocytes # (A) 0.5 k/uL (0-1.0); Monocytes % (A) 6 %; Neutrophils # (A) 5.9 k/uL (1.3-7.7); Neutrophils % (A) 77 %; Platelet Count 292 k/uL (150-450); RBC 3.72 m/uL (3.80-5.40); RDW 16.4 % (11.5-15.5); WBC 7.7 k/uL (3.8-10.6)
[2018-02-23 07:25] LABS: Calcium 8.8 mg/dL (8.4-10.2); Magnesium 2.1 mg/dL (1.6-2.3); Phosphorus 4.4 mg/dL (2.5-4.5); Potassium 3.6 mmol/L (3.5-5.1)
--- NOTE | 2018-02-23 11:46 | P.PN ---
Subjective Progress Note Date: 02/23/18 Principal diagnosis: Acute hypoxic respiratory failure secondary to pneumonia and systolic congestive heart failure. A 72-year-old female patient who was brought into the emergency department because of worsening shortness of breath. Her history is a rather vague 1. She initially started having some nausea and emesis and subsequently she started having pain across her posterior chest worse with breathing in addition to cough and also blood-tinged sputum and worsening shortness of breath. She apparently went to primary care physician she was given a pain shot or a steroid shot and she was discharged home. Subsequently her condition got worse and she end up coming to the emergency department for worsening shortness of breath. No history of COPD. Most of asthma. Most of coronary artery disease pH is known to have congestion heart failure the patient has an AICD in place. In the emergency department, the patient was found to have some cardiomegaly on her chest x-ray and bilateral lower lobe pulmonary infiltrates. BNP level was elevated at 3000 range. Lactic acid level was at 2.4. She was given IV fluids around 1/2 L and the patient got transferred to the intensive care unit after being started on a combination of Zosyn and vancomycin. Nevertheless, overnight she became progressively more short of breath. She was placed on high flow oxygen. Initially she was at 3 L and she was brought up to 10 L. I was contacted overnight and I give the patient dose of Lasix 60 mg IV push. Subsequent she produced excellent amount of urine output in the order of 1 L as her shortness of breath improved. Currently she is on 8 L high flow and she is breathing easier and she is less short of breath. On examination she still having tach and lung bases bilaterally. CAT scan of the chest was done and there was no evidence of any pulmonary embolism. There was cardiomegaly and she has bilateral lower lobe pulmonary infiltrates with pleural effusions suggestive of congestion heart failure. Some nonspecific mediastinal lymph nodes are also seen. She is feeling better. The pain is subsided. She is on anticoagulation on long-term basis with Xarelto and aspirin. She is not having any hemoptysis for now. No previous history of DVT. No previous history of pulmonary embolism. She essentially runs a lower blood pressure and she claims that her blood pressure systolic runs in the mid 90s. No leukocytosis. Clear function is stable. On 02/20/2018, the patient is feeling better clinically. She is less short of breath. She has been weaned down to 2 by nasal cannula. The patient overnight became progressively more hypotensive. She had required pressors and she was requiring as high as 8 mics of norepinephrine infusion for blood pressure control. Subsequently urine output improved. Pressors were gradually weaned off as the patient is also being treated with accommodation of Zosyn and vancomycin. Her urine output improved. No pressure improved. Oxygenation is also improved and the patient is currently to 2 L about 2 by nasal cannula. Chest x-ray still showing bilateral lower lobe pulmonary infiltrates/CHF. No fever. No chills. She still cough and output some bloody mucus probably due to underlying pneumonia. Her metabolic acidosis also improved and the bicarb level is up to 22. Renal function is stable with a creatinine of 0.9. Cultures negative. Clinically she is awake and alert and following commands and answering questions appropriately. She denies having any chest pain. She reports improvement in her shortness of breath and symptoms of pneumonia and CHF. On 02/21/2018, patient was evaluated in the ICU, she is presently off norepinephrine, seems to be hemodynamically stable. Feeling much better, breathing a lot easier, remains on antibiotics, remains on diuretics. Hardly any cough, no wheezing, no shortness of breath, no chest pain, no nausea no vomiting no abdominal pain. Appetite reviewed she had a relatively normal CBC and the relatively normal basic metabolic profile. The patient was seen again today 02/22/2018 in follow-up on the selective care unit. She is awake and alert in no acute distress. She still has some dyspnea on exertion. She does have a productive cough with some blood-tinged sputum. Culture is pending. White count 6.2. Hemoglobin 10.4. Creatinine 0.94. Bicarb 23. She remains on the ankle myosin and Zosyn. Continued on IV diuretics. She is maintaining good O2 saturations in the 90s on 2 L/m per nasal cannula. The patient is seen again today 02/23/2018 in follow-up on the selective care unit. She is currently resting comfortably in bed. She complains of fatigue. No worsening shortness of breath, cough or congestion. She is maintaining O2 saturations in the 90s on 2 L/m per nasal cannula. She's been afebrile. Sputum is positive for Meg only white count 7.7. Hemoglobin 10.5. Creatinine 1.23. She remains on vancomycin and Zosyn. She remains on IV Lasix. Objective - Vital Signs Vital signs: Vital Signs Temp 98.1 F 02/23/18 04:00 Pulse 80 02/23/18 04:00 Resp 18 02/23/18 04:00 BP 101/64 02/23/18 04:00 Pulse Ox 93 L 02/23/18 04:00 Intake & Output 02/22/18 02/23/18 02/23/18 18:59 06:59 18:59 Intake Total 240 150 Balance 240 150 Weight 80.5 kg Intake: Oral 240 150 Other: Voiding Method Toilet Toilet # Voids 1 1 1 # Bowel Movements 1 - Exam Physical Exam revealed a 72-year-old white female, pleasant, in no distress, on 2 L nasal cannula. Head: Atraumatic normocephalic. HEENT:[Neck is supple.] [No neck masses.] [No thyromegaly.] [No JVD.] PERRLA, EOMI, no icterus. Chest: [Normal fine crackles at the bases, no rhonchi, no wheezes, no chest wall tenderness..] Cardiac Exam: [Normal S1 and S2, no S3 gallop, no murmur.] Abdomen: [Soft, nontender, no megaly, no rebound, no guarding, normal bowel sounds.] Extremities: [No clubbing, no edema, no cyanosis.] Neurological Exam: [No focal neurologic deficit.] Lymphatics: No lymphadenopathy. Psychiatric: Normal mood affect and mental status examination. - Labs CBC & Chem 7: 02/23/18 06:23 02/23/18 06:23 Labs: Abnormal Lab Results - Last 24 Hours (Table) 02/23/18 02/23/18 Range/Units 06:23 06:23 RBC 3.72 L (3.80-5.40) m/uL Hgb 10.5 L (11.4-16.0) gm/dL Hct 33.1 L (34.0-46.0) % RDW 16.4 H (11.5-15.5) % BUN 21 H (7-17) mg/dL Creatinine 1.23 H (0.52-1.04) mg/dL Glucose 100 H (74-99) mg/dL Microbiology - Last 24 Hours (Table) 02/20/18 19:16 Gram Stain - Final Sputum Sputum Culture - Final Meg albicans 02/18/18 20:18 Blood Culture - Preliminary Blood No Growth after 96 hours Assessment and Plan Assessment: 1 acute hypoxic respiratory failure, secondary to bilateral pneumonia along with a component of CHF which will be an acute on top of chronic CHF exacerbation. Clinically the patient is improving. Oxygenation is also improved and the patient is currently on 2 L per minute by nasal cannula. 2 acute bilateral lower lobe pneumonia in addition to a CHF exacerbation resulting in significant shortness of breath and acute hypoxic respiratory failure, improving 3 pleuritic lower lobe chest pain, likely pneumonia and pulmonary embolism was ruled out based on the negative CT angios the chest 4 CHF with impairment of the LV function 5 hypotension secondary to pneumonia/sepsis. The patient required pressors briefly yesterday and currently she is off pressors. The patient is maintaining her on blood pressure for now. 6 long-term and to coagulation with Xarelto 7 melanoma resected 8 gout 9 remote history of ESBL producing urine checked infection with E. coli 10 history of recurrent artery disease 11 paroxysmal atrial fibrillation current rhythm is sinus Plan: The patient is seen and evaluated by Dr. Fung. She is improved from the pulmonary standpoint. We'll continue with her current treatment plan for now. Increase her activity as tolerated. We'll continue to follow. I, the cosigning physician, performed a history & physical examination of the patient. Lungs sounds with crackles in the posterior bases. Maintaining good O2 saturations in the 90s on 2 L/m per nasal cannula. I discussed the assessment and plan of care with my nurse practitioner, Mari Ruano. I attest to the above note as dictated by her.
[2018-02-23] MEDS: IPRATROPIUM-ALBUTEROL 3 ML NEB INHALATION PRN ×2 (11:47→20:53)
--- NOTE | 2018-02-23 12:12 | P.PN ---
Subjective Progress Note Date: 02/23/18 This is a 72 year-old female. Her primary care physician is Dr. Basil Crowell. Sees Dr. Real Jackson at [facility] She has a past medical history of hypertension, gastroesophageal reflux disease, carotid stenosis and non ischemic cardiomyopathy status post AICD with reported EF 30 -35 %, gout, anxiety and depression. She was recently hospitalized on June 08 following a fall secondary to dizziness with orthostatic changes ruled out. She ended up having a left radial fracture and left pelvic fracture. She was seen by orthopedics and they recommended splint and sling to the left arm and toe-touch weightbearing on the left lower extremity. Patient was again admitted on June 20 with confusion likely secondary to tramadol. She did present with history of passing out. AICD interrogation was done during the admission and found to have normal service function. Patient was again seen in 2017 with altered mental status sec to benzodiazepine which was held. Last seen on January done for acute chest pain. Stress test was done during that admission which suggested old infarct but no reversible ischemia. Patient comes in today with acute onset of shortness of breath and cough production that started yesterday. She had multiple episodes of vomiting this morning. Patient documents having blood-tinged sputum production. She denies any fever or chills. She denies any history of pulmonary embolism or DVT. She is currently on xarelto for paroxysmal atrial fibrillation. Vitals obtained in the ER, EKG was regular was and briefly in atrial fibrillation, P respiratory rate of 21 with blood pressure 103/59. in the er suggestive wbc 6.1 hemoglobin 11.2, creatinine 1.14 which is close to patient's baseline (0.9- 1.2. Lactic acid 2.4, BNP 4000, UA clear of any infection. EKG suggestive T- wave inversion in lead V5 and V6 but no ST changes seen. Chest x-ray obtained suggested bibasilar infiltrates worse in the right lower lobe. Patient will be monitored in the ICU overnight for possible transfer to the floor in the morning. Antibiotics will be initiated for HCAP Coverage with Zosyn and vancomycin. Troponin 2 negative, we will repeat in 6 hours. Lactic acid was repeated every 6 hours 3. Patient received a bolus of 1500. Hold further IV fluids due to concern of CHF. CT chest with IV contrast will be obtained for concern of hemoptysis and possible need for bronchoscopy. Pulmonary consult follow up in the morning 02/19: Patient is feeling better today she continues to be somewhat short of breath, she did receive Lasix yesterday with significant diuresis, her x-ray significant for congestive heart failure, her computed tomography scan significant for bilateral lower lobe pneumonia, in the presence of mild hemoptysis I believe the patient has no coffee-ground emesis this is all related to her pneumonia. We will start the patient back in her Xarelto. 02/20: Patient was on Levophed yesterday at 10 mics per hour she was taken off of it at 7:00 in the morning today she is feeling a lot better today she continues to require about 3 L of oxygen nasal cannula, she denies any chest pain or short of breath she continues to have some bloody tinged sputum, she has no abdominal pain, nausea or vomiting, she will stay in the ICU. 02/21: Patients reports she is feeling better today. She denies any shortness of breath or chest pain. Lovophed was stopped yesterday, blood pressure remains stable at 108/58. Blood and urine cultures show no growth to date. Sputum cultures are still pending. Repeat chest xray shows stable mild cardiomegaly with interstitial changes and patchy retrocardiac atelectasis/infiltrates. She will be moved off the ICU floor today if a bed is available to selective care. 02/22: Pulse ox is running 90-93% on 2 L nasal cannula. Patient has been afebrile. White count is normal, hemoglobin stable at 10.4. Electrolytes are all within normal limits. Patient is continued on IV Zosyn and vancomycin. Beta richmond has been on hold due to hypotension. Patient continues to have shortness of breath although she is improved from Wednesday she does not feel any improvement since yesterday. Lower extremity edema is improved. Patient has had loose stool. PT and OT has been added to evaluate for rehab. 02/23: Patient continues to complain of shortness of breath. We will S4 repeat chest x-ray today. Pulse ox is running 95% on 2 L nasal cannula. Patient has been afebrile. Heart rate running in the 80s. Hemoglobin is stable at 10.5, creatinine slightly increased to 1.23. No medication changes made. PT and OT eval is pending. Objective - Vital Signs Vital signs: Vital Signs Temp 98.1 F 02/23/18 04:00 Pulse 80 02/23/18 04:00 Resp 18 02/23/18 04:00 BP 101/64 02/23/18 04:00 Pulse Ox 93 L 02/23/18 04:00 Intake & Output 02/22/18 02/23/18 02/23/18 18:59 06:59 18:59 Intake Total 240 150 Balance 240 150 Weight 80.5 kg Intake: Oral 240 150 Other: Voiding Method Toilet Toilet # Voids 1 1 1 # Bowel Movements 1 - Exam General appearance: cooperative, no acute distress, obese on 2 L of oxygen - EENT Eyes: anicteric sclerae, PERRLA, normal appearance ENT: hearing grossly normal - Neck Neck: no lymphadenopathy, normal ROM, no other, no rigidity, no stridor, no thyromegaly - Respiratory Respiratory: bilateral: Decreased air entry with bibasilar crackles worse in the right posterior lobe no wheezing on examination - Cardiovascular Rhythm: regular Heart sounds: normal: S1, S2 Abnormal Heart Sounds: no systolic murmur, no diastolic murmur, no rub, no S3 Gallop, no S4 Gallop, - Gastrointestinal General gastrointestinal: normal bowel sounds, soft, nontender - Integumentary Integumentary: no rash - Neurologic Neurologic: CNII-XII intact - Musculoskeletal Musculoskeletal: gait normal, strength equal bilaterally,cold extremity, perforated pulses palpable - Psychiatric Psychiatric: A&O x's 3, appropriate affect - Labs CBC & Chem 7: 02/23/18 06:23 02/23/18 06:23 Labs: Abnormal Lab Results - Last 24 Hours (Table) 02/23/18 02/23/18 Range/Units 06:23 06:23 RBC 3.72 L (3.80-5.40) m/uL Hgb 10.5 L (11.4-16.0) gm/dL Hct 33.1 L (34.0-46.0) % RDW 16.4 H (11.5-15.5) % BUN 21 H (7-17) mg/dL Creatinine 1.23 H (0.52-1.04) mg/dL Glucose 100 H (74-99) mg/dL Microbiology - Last 24 Hours (Table) 02/20/18 19:16 Gram Stain - Final Sputum Sputum Culture - Final Meg albicans 02/18/18 20:18 Blood Culture - Preliminary Blood No Growth after 96 hours Assessment and Plan Plan: 1. Acute hypoxemic respiratory failure due to Bilateral pneumonia with sepsis and acute systolic heart failure. Continue Lasix 20 mg IV push every 12 hours, continue the IV Zosyn and vancomycin, continue nebulized treatment, Levophed was discontinued, continue with the current management. Consult pulmonary medicine is appreciated. 2. Acute on chronic systolic congestive heart failure and nonischemic cardiomyopathy with known ejection fraction of 30-35% status post defibrillator which was interrogated in January 2018. BNP is elevated. Continue Lasix and spironolactone. 3. Hypotension secondary to septic shock. Continue treatment for pneumonia. Patient is off vasopressors. Dr. Fung is following for intensive care management and pulmonary medicine. 4. Hematemesis vs hemoptysis. Continue Protonix. 5. Paroxysmal atrial fibrillation. Lopressor is on hold due to hypotension. Continue Xarelto 20 mg by mouth daily. 6. Recurrent depression. Continue citalopram 40 mg daily at bedtime. 7. Gout, stable. Continue allopurinol 8. Generalized anxiety disorder. Continue Xanax 0.5 mg daily and 2 mg at bedtime as needed at bedtime 9. Lactic acidosis likely secondary to sepsis status post IV fluids. Repeat CMP. 10. DVT prophylaxis was xarelto 11. GI prophylaxis with Pepcid 20 mg daily CODE STATUS: Full code Discharge plan: PT and OT added. Impression and plan of care have been directed as dictated by the signing physician. Nancy Olivera nurse practitioner acting as scribe for signing physician.
[2018-02-23] MEDS: FUROSEMIDE 10 MG/ML 2 ML VIAL IV SCH ×2 (12:17→20:44)
[2018-02-23] MEDS: ALPRAZolam 0.5 MG TAB PO SCH (12:17)
[2018-02-23] MEDS: ASPIRIN 81 MG PO SCH (12:17)
[2018-02-23] MEDS: ALLOPURINOL 100 MG TAB PO SCH (12:17)
[2018-02-23] MEDS: PANTOPRAZOLE 40 MG/10 ML VIAL IV SCH (12:18)
[2018-02-23] MEDS: SPIRONOLACTONE 25 MG TAB PO SCH (12:19)
[2018-02-23] MEDS: DOCUSATE 100 MG CAP PO SCH ×2 (12:24→20:45)
[2018-02-23] MEDS: PIPERACILLIN-TAZOBACTAM 3.375 GM in DEXTROSE/WATER 1 50ML.BAG IVPB SCH ×3 (12:24→23:00)
--- NOTE | 2018-02-23 13:11 | XR ---
EXAMINATION TYPE: XR chest 1V portable DATE OF EXAM: 02/23/2018 COMPARISON: 02/21/2018 INDICATION: Pneumonia, short of breath TECHNIQUE: Single frontal view of the chest is obtained. FINDINGS: The heart size is enlarged. The pulmonary vasculature is prominent. Mild left lower lobe infiltrate is present. Correlate for atelectasis. Pneumonia should be considered . Electronic device overlies left chest. IMPRESSION: 1. Clinical correlation recommended for left lower lobe pneumonia or atelectasis.
[2018-02-23] MEDS: VANCOMYCIN 1,500 MG in SODIUM CHLORIDE 0.9% 250 ML IVPB SCH (15:50)
[2018-02-23] MEDS: CITALOPRAM HYDROBROMIDE 20 MG TAB PO SCH (20:44)
[2018-02-24] MEDS: RIVAROXABAN 20 MG TAB PO SCH (06:23)
[2018-02-24 07:23] LABS: Calcium 8.8 mg/dL (8.4-10.2); Potassium 3.4 mmol/L (3.5-5.1)
[2018-02-24] MEDS: IPRATROPIUM-ALBUTEROL 3 ML NEB INHALATION PRN ×2 (07:40→16:05)
[2018-02-24] MEDS: PIPERACILLIN-TAZOBACTAM 3.375 GM in DEXTROSE/WATER 1 50ML.BAG IVPB SCH ×3 (07:43→23:11)
[2018-02-24] MEDS ORDERED: POTASSIUM CHLORIDE ER 20 MEQ TAB.ER PO STA (09:37)
[2018-02-24] MEDS ORDERED: SALINE NASAL GEL 14.1 GM TUBE TOPICAL PRN (10:23)
[2018-02-24] MEDS: DOCUSATE 100 MG CAP PO SCH ×2 (10:58→20:29)
[2018-02-24] MEDS: ASPIRIN 81 MG PO SCH (10:58)
[2018-02-24] MEDS: FUROSEMIDE 10 MG/ML 2 ML VIAL IV SCH ×2 (10:58→20:29)
[2018-02-24] MEDS: ALLOPURINOL 100 MG TAB PO SCH (10:58)
[2018-02-24] MEDS: ALPRAZolam 0.5 MG TAB PO SCH (10:58)
[2018-02-24] MEDS: PANTOPRAZOLE 40 MG/10 ML VIAL IV SCH (11:01)
[2018-02-24] MEDS: SPIRONOLACTONE 25 MG TAB PO SCH (11:03)
--- NOTE | 2018-02-24 12:00 | P.PN ---
Subjective Progress Note Date: 02/24/18 This is a 72 year-old female. Her primary care physician is Dr. Basil Crowell. Sees Dr. Real Jackson at [facility] She has a past medical history of hypertension, gastroesophageal reflux disease, carotid stenosis and non ischemic cardiomyopathy status post AICD with reported EF 30 -35 %, gout, anxiety and depression. She was recently hospitalized on June 08 following a fall secondary to dizziness with orthostatic changes ruled out. She ended up having a left radial fracture and left pelvic fracture. She was seen by orthopedics and they recommended splint and sling to the left arm and toe-touch weightbearing on the left lower extremity. Patient was again admitted on June 20 with confusion likely secondary to tramadol. She did present with history of passing out. AICD interrogation was done during the admission and found to have normal service function. Patient was again seen in 2017 with altered mental status sec to benzodiazepine which was held. Last seen on January done for acute chest pain. Stress test was done during that admission which suggested old infarct but no reversible ischemia. Patient comes in today with acute onset of shortness of breath and cough production that started yesterday. She had multiple episodes of vomiting this morning. Patient documents having blood-tinged sputum production. She denies any fever or chills. She denies any history of pulmonary embolism or DVT. She is currently on xarelto for paroxysmal atrial fibrillation. Vitals obtained in the ER, EKG was regular was and briefly in atrial fibrillation, P respiratory rate of 21 with blood pressure 103/59. in the er suggestive wbc 6.1 hemoglobin 11.2, creatinine 1.14 which is close to patient's baseline (0.9- 1.2. Lactic acid 2.4, BNP 4000, UA clear of any infection. EKG suggestive T- wave inversion in lead V5 and V6 but no ST changes seen. Chest x-ray obtained suggested bibasilar infiltrates worse in the right lower lobe. Patient will be monitored in the ICU overnight for possible transfer to the floor in the morning. Antibiotics will be initiated for HCAP Coverage with Zosyn and vancomycin. Troponin 2 negative, we will repeat in 6 hours. Lactic acid was repeated every 6 hours 3. Patient received a bolus of 1500. Hold further IV fluids due to concern of CHF. CT chest with IV contrast will be obtained for concern of hemoptysis and possible need for bronchoscopy. Pulmonary consult follow up in the morning 02/19: Patient is feeling better today she continues to be somewhat short of breath, she did receive Lasix yesterday with significant diuresis, her x-ray significant for congestive heart failure, her computed tomography scan significant for bilateral lower lobe pneumonia, in the presence of mild hemoptysis I believe the patient has no coffee-ground emesis this is all related to her pneumonia. We will start the patient back in her Xarelto. 02/20: Patient was on Levophed yesterday at 10 mics per hour she was taken off of it at 7:00 in the morning today she is feeling a lot better today she continues to require about 3 L of oxygen nasal cannula, she denies any chest pain or short of breath she continues to have some bloody tinged sputum, she has no abdominal pain, nausea or vomiting, she will stay in the ICU. 02/21: Patients reports she is feeling better today. She denies any shortness of breath or chest pain. Lovophed was stopped yesterday, blood pressure remains stable at 108/58. Blood and urine cultures show no growth to date. Sputum cultures are still pending. Repeat chest xray shows stable mild cardiomegaly with interstitial changes and patchy retrocardiac atelectasis/infiltrates. She will be moved off the ICU floor today if a bed is available to selective care. 02/22: Pulse ox is running 90-93% on 2 L nasal cannula. Patient has been afebrile. White count is normal, hemoglobin stable at 10.4. Electrolytes are all within normal limits. Patient is continued on IV Zosyn and vancomycin. Beta richmond has been on hold due to hypotension. Patient continues to have shortness of breath although she is improved from Wednesday she does not feel any improvement since yesterday. Lower extremity edema is improved. Patient has had loose stool. PT and OT has been added to evaluate for rehab. 02/23: Patient continues to complain of shortness of breath. We will S4 repeat chest x-ray today. Pulse ox is running 95% on 2 L nasal cannula. Patient has been afebrile. Heart rate running in the 80s. Hemoglobin is stable at 10.5, creatinine slightly increased to 1.23. No medication changes made. PT and OT eval is pending. 9/20: Pulse ox is 93% on 3 L nasal cannula. Patient remains afebrile. Heart rate in the 90s. Potassium is 3.4 will be replaced. BUN 19 and creatinine 1.2. Patient remains on Lasix 20 mg IV twice daily and Aldactone 50 mg daily along with DuoNeb treatments and IV antibiotics with Zosyn and vancomycin. PT and OT are following and recommended home with homecare. Patient states that her breathing is finally improving. She has no lower extremity edema. She did have a nosebleed last night from dry air and saline nasal gel ordered. Patient has had 2 bowel movements that are loose and denies any abdominal pain. Objective - Vital Signs Vital signs: Vital Signs Temp 96.7 F L 02/24/18 06:57 Pulse 98 02/24/18 07:54 Resp 18 02/24/18 08:48 BP 100/72 02/24/18 06:57 Pulse Ox 93 L 02/24/18 06:57 Intake & Output 02/23/18 02/24/18 02/24/18 18:59 06:59 18:59 Intake Total 390 100 Balance 390 100 Weight 79.7 kg Intake: Oral 390 100 Other: Voiding Method Toilet Toilet # Voids 1 1 # Bowel Movements 1 - Exam General appearance: cooperative, no acute distress, obese on 2 L of oxygen - EENT Eyes: anicteric sclerae, PERRLA, normal appearance ENT: hearing grossly normal - Neck Neck: no lymphadenopathy, normal ROM, no other, no rigidity, no stridor, no thyromegaly - Respiratory Respiratory: bilateral: Decreased air entry with bibasilar crackles worse in the right posterior lobe no wheezing on examination - Cardiovascular Rhythm: regular Heart sounds: normal: S1, S2 Abnormal Heart Sounds: no systolic murmur, no diastolic murmur, no rub, no S3 Gallop, no S4 Gallop, - Gastrointestinal General gastrointestinal: normal bowel sounds, soft, nontender - Integumentary Integumentary: no rash - Neurologic Neurologic: CNII-XII intact - Musculoskeletal Musculoskeletal: gait normal, strength equal bilaterally,cold extremity, perforated pulses palpable - Psychiatric Psychiatric: A&O x's 3, appropriate affect - Labs CBC & Chem 7: 02/23/18 06:23 02/24/18 06:10 Labs: Abnormal Lab Results - Last 24 Hours (Table) 02/24/18 Range/Units 06:10 Potassium 3.4 L (3.5-5.1) mmol/L BUN 19 H (7-17) mg/dL Creatinine 1.20 H (0.52-1.04) mg/dL Glucose 101 H (74-99) mg/dL Microbiology - Last 24 Hours (Table) 02/18/18 20:18 Blood Culture - Preliminary Blood No Growth after 120 hours 02/20/18 19:16 Gram Stain - Final Sputum Sputum Culture - Final Meg albicans Assessment and Plan Plan: 1. Acute hypoxemic respiratory failure due to Bilateral pneumonia with sepsis and acute systolic heart failure. Continue Lasix 20 mg IV push every 12 hours, continue the IV Zosyn and vancomycin, continue nebulized treatment, Levophed was discontinued, continue with the current management. Consult pulmonary medicine is appreciated. 2. Acute on chronic systolic congestive heart failure and nonischemic cardiomyopathy with known ejection fraction of 30-35% status post defibrillator which was interrogated in January 2018. BNP is elevated. Continue Lasix and spironolactone. 3. Hypotension secondary to septic shock. Continue treatment for pneumonia. Patient is off vasopressors. Dr. Fung is following for intensive care management and pulmonary medicine. 4. Hematemesis vs hemoptysis. Continue Protonix. 5. Paroxysmal atrial fibrillation. Lopressor is on hold due to hypotension. Continue Xarelto 20 mg by mouth daily. 6. Recurrent depression. Continue citalopram 40 mg daily at bedtime. 7. Gout, stable. Continue allopurinol 8. Generalized anxiety disorder. Continue Xanax 0.5 mg daily and 2 mg at bedtime as needed at bedtime 9. Lactic acidosis likely secondary to sepsis status post IV fluids. Repeat CMP. 10. DVT prophylaxis was xarelto 11. GI prophylaxis with Pepcid 20 mg daily CODE STATUS: Full code Discharge plan: Home with [facility] possibly tomorrow. Impression and plan of care have been directed as dictated by the signing physician. Nancy Olivera nurse practitioner acting as scribe for signing physician.
--- NOTE | 2018-02-24 12:56 | P.PN ---
Subjective Progress Note Date: 02/24/18 Principal diagnosis: Acute hypoxic respiratory failure secondary to pneumonia and systolic congestive heart failure. A 72-year-old female patient who was brought into the emergency department because of worsening shortness of breath. Her history is a rather vague 1. She initially started having some nausea and emesis and subsequently she started having pain across her posterior chest worse with breathing in addition to cough and also blood-tinged sputum and worsening shortness of breath. She apparently went to primary care physician she was given a pain shot or a steroid shot and she was discharged home. Subsequently her condition got worse and she end up coming to the emergency department for worsening shortness of breath. No history of COPD. Most of asthma. Most of coronary artery disease pH is known to have congestion heart failure the patient has an AICD in place. In the emergency department, the patient was found to have some cardiomegaly on her chest x-ray and bilateral lower lobe pulmonary infiltrates. BNP level was elevated at 3000 range. Lactic acid level was at 2.4. She was given IV fluids around 1/2 L and the patient got transferred to the intensive care unit after being started on a combination of Zosyn and vancomycin. Nevertheless, overnight she became progressively more short of breath. She was placed on high flow oxygen. Initially she was at 3 L and she was brought up to 10 L. I was contacted overnight and I give the patient dose of Lasix 60 mg IV push. Subsequent she produced excellent amount of urine output in the order of 1 L as her shortness of breath improved. Currently she is on 8 L high flow and she is breathing easier and she is less short of breath. On examination she still having tach and lung bases bilaterally. CAT scan of the chest was done and there was no evidence of any pulmonary embolism. There was cardiomegaly and she has bilateral lower lobe pulmonary infiltrates with pleural effusions suggestive of congestion heart failure. Some nonspecific mediastinal lymph nodes are also seen. She is feeling better. The pain is subsided. She is on anticoagulation on long-term basis with Xarelto and aspirin. She is not having any hemoptysis for now. No previous history of DVT. No previous history of pulmonary embolism. She essentially runs a lower blood pressure and she claims that her blood pressure systolic runs in the mid 90s. No leukocytosis. Clear function is stable. On 02/20/2018, the patient is feeling better clinically. She is less short of breath. She has been weaned down to 2 by nasal cannula. The patient overnight became progressively more hypotensive. She had required pressors and she was requiring as high as 8 mics of norepinephrine infusion for blood pressure control. Subsequently urine output improved. Pressors were gradually weaned off as the patient is also being treated with accommodation of Zosyn and vancomycin. Her urine output improved. No pressure improved. Oxygenation is also improved and the patient is currently to 2 L about 2 by nasal cannula. Chest x-ray still showing bilateral lower lobe pulmonary infiltrates/CHF. No fever. No chills. She still cough and output some bloody mucus probably due to underlying pneumonia. Her metabolic acidosis also improved and the bicarb level is up to 22. Renal function is stable with a creatinine of 0.9. Cultures negative. Clinically she is awake and alert and following commands and answering questions appropriately. She denies having any chest pain. She reports improvement in her shortness of breath and symptoms of pneumonia and CHF. On 02/21/2018, patient was evaluated in the ICU, she is presently off norepinephrine, seems to be hemodynamically stable. Feeling much better, breathing a lot easier, remains on antibiotics, remains on diuretics. Hardly any cough, no wheezing, no shortness of breath, no chest pain, no nausea no vomiting no abdominal pain. Appetite reviewed she had a relatively normal CBC and the relatively normal basic metabolic profile. The patient was seen again today 02/22/2018 in follow-up on the selective care unit. She is awake and alert in no acute distress. She still has some dyspnea on exertion. She does have a productive cough with some blood-tinged sputum. Culture is pending. White count 6.2. Hemoglobin 10.4. Creatinine 0.94. Bicarb 23. She remains on the ankle myosin and Zosyn. Continued on IV diuretics. She is maintaining good O2 saturations in the 90s on 2 L/m per nasal cannula. The patient is seen again today 02/23/2018 in follow-up on the selective care unit. She is currently resting comfortably in bed. She complains of fatigue. No worsening shortness of breath, cough or congestion. She is maintaining O2 saturations in the 90s on 2 L/m per nasal cannula. She's been afebrile. Sputum is positive for Meg only white count 7.7. Hemoglobin 10.5. Creatinine 1.23. She remains on vancomycin and Zosyn. She remains on IV Lasix. The patient is seen again today 02/24/2018 in follow-up on the selective care unit. She is awake and alert in no acute distress. She is breathing easier today as compared to yesterday. Continue good O2 saturations in the 90s on 3 L/ m per nasal cannula. She is afebrile. Hemodynamically stable. Asked x-ray continued to show left lower lobe pneumonia/atelectasis. She remains on vancomycin and Zosyn. She remains on IV diuretics. Creatinine 1.20. Objective - Vital Signs Vital signs: Vital Signs Temp 98.1 F 02/24/18 12:13 Pulse 100 02/24/18 12:13 Resp 18 02/24/18 12:13 BP 118/74 02/24/18 12:13 Pulse Ox 93 L 02/24/18 12:13 Intake & Output 02/23/18 02/24/18 02/24/18 18:59 06:59 18:59 Intake Total 390 100 Balance 390 100 Weight 79.7 kg Intake: Oral 390 100 Other: Voiding Method Toilet Toilet # Voids 1 1 # Bowel Movements 1 - Exam GENERAL EXAM: Alert, active, comfortable in no apparent distress. HEAD: Normocephalic. EYES: Normal reaction of pupils, equal size. NOSE: Clear with pink turbinates. THROAT: No erythema or exudates. NECK: No masses, no JVD. CHEST: No chest wall deformity. LUNGS: Equal air entry with crackles in the left posterior base. CVS: S1 and S2 normal with no audible murmur, regular rhythm. ABDOMEN: No hepatosplenomegaly, normal bowel sounds, no guarding or rigidity. SPINE: No scoliosis or deformity SKIN: No rashes CENTRAL NERVOUS SYSTEM: No focal deficits, tone is normal in all 4 extremities. EXTREMITIES: There is no peripheral edema. No clubbing, no cyanosis. Peripheral pulses are intact. - Labs CBC & Chem 7: 02/23/18 06:23 02/24/18 06:10 Labs: Abnormal Lab Results - Last 24 Hours (Table) 02/24/18 Range/Units 06:10 Potassium 3.4 L (3.5-5.1) mmol/L BUN 19 H (7-17) mg/dL Creatinine 1.20 H (0.52-1.04) mg/dL Glucose 101 H (74-99) mg/dL Microbiology - Last 24 Hours (Table) 02/18/18 20:18 Blood Culture - Preliminary Blood No Growth after 120 hours 02/20/18 19:16 Gram Stain - Final Sputum Sputum Culture - Final Meg albicans Assessment and Plan Assessment: 1 acute hypoxic respiratory failure, secondary to bilateral pneumonia along with a component of CHF which will be an acute on top of chronic CHF exacerbation. Clinically the patient is improving. Oxygenation is also improved and the patient is currently on 3 L per minute by nasal cannula. 2 acute bilateral lower lobe pneumonia in addition to a CHF exacerbation resulting in significant shortness of breath and acute hypoxic respiratory failure, improving and the patient remains on vancomycin and Zosyn along with IV diuretics. 3 pleuritic lower lobe chest pain, likely pneumonia and pulmonary embolism was ruled out based on the negative CT angios the chest 4 CHF with impairment of the LV function 5 hypotension secondary to pneumonia/sepsis. The patient required pressors briefly and currently she is off pressors. 6 atrial fibrillation, anticoagulated with with Xarelto 7 melanoma resected 8 gout 9 remote history of ESBL producing urine checked infection with E. coli 10 history of recurrent artery disease 11 paroxysmal atrial fibrillation current rhythm is sinus Plan: The patient is seen and evaluated by Dr. Fung. She is breathing easier today as compared to yesterday. Continued on 3 L/m per nasal cannula. We'll continue with her current treatment plan for now. Increase her activity as tolerated. We'll continue to follow. I, the cosigning physician, performed a history & physical examination of the patient. Lungs sounds with crackles in the posterior bases. Maintaining good O2 saturations in the 90s on 3 L/m per nasal cannula. I discussed the assessment and plan of care with my nurse practitioner, Mari Ruano. I attest to the above note as dictated by her.
[2018-02-24] MEDS ORDERED: VANCOMYCIN TROUGH DUE 1 EACH MISC MISCELLANE ONE (13:00)
--- NOTE | 2018-02-24 14:51 | P.PN ---
Subjective Progress Note Date: 02/24/18 This is a 72-year-old female who follows with Dr. Saleem at the [facility] for her cardiac needs. She has a known history of paroxysmal atrial fibrillation, nonischemic cardiomyopathy with prior AICD, peripheral arterial disease with prior carotid endarterectomy, hypertension, hyperlipidemia, prior history of smoking, she presents to the hospital on this occasion with symptoms of progressively worsening shortness of breath. According to the patient, she's also had and productive cough and episodes of vomiting. Chest x-ray on admission here showed bibasilar infiltrates and developing pneumonia. CT of the chest did not reveal any evidence for pulmonary embolism. It did show cardiomegaly with bilateral lower lobe infiltrates and pleural effusion. Nonspecific mild mediastinotomy and bronchial adenopathy increase as compared with prior exam. EKG shows a normal sinus rhythm with occasional PVCs. Subsequent chest x-ray showed cardiomegaly with worsening left basilar airspace disease, bilateral effusions, findings consistent with congestive heart failure. She was admitted primarily with diagnosis of sepsis with associated pneumonia and mild congestive heart failure and was initially in the intensive care unit. She is now being followed on the telemetry unit. She states that she's feeling much better overall, breathing is significantly improved, continues to be on antibiotics and IV diuretics. Her weight is down today, and she continues to diurese well on IV Lasix. Operatory data from today, white blood cell count 6.2, hemoglobin 10.4, platelet count 277. Sodium 138, potassium 3.6, BUN 17, creatinine 0.9. Magnesium 2.1. She continues to be on Aldactone, and xarelto. Because of hypotension in the intensive care unit she is not currently on a beta richmond or ANALIA inhibitor. Most recent echocardiogram with Doppler study was performed in January of this year which revealed an ejection fraction of 30-35%. 02/24/2018 Patient seen today on the telemetry unit, awake and alert in no distress. Breathing easier as compared with yesterday. Continues to maintain good oxygen saturations. Hemodynamically she is stable. Chest x-ray continued to show left lower lobe pneumonia and atelectasis, she continues to be on IV diuretics at this time. Her weight is down 1 kg today. Sodium 141, potassium 3.4, BUN 19 , creatinine 1.2 today. Objective - Vital Signs Vital signs: Vital Signs Temp 98.2 F 02/24/18 14:38 Pulse 97 02/24/18 14:38 Resp 93 H 02/24/18 14:38 BP 114/65 02/24/18 14:38 Pulse Ox 93 L 02/24/18 12:13 Intake & Output 02/23/18 02/24/18 02/24/18 18:59 06:59 18:59 Intake Total 390 100 Balance 390 100 Weight 79.7 kg Intake: Oral 390 100 Other: Voiding Method Toilet Toilet # Voids 1 1 # Bowel Movements 1 - Exam PHYSICAL EXAMINATION: GENERAL: 72-year-old female in no acute distress at the time of my examination HEENT: Head is atraumatic, normocephalic. Pupils equal, round. Sclera anicteric. Conjunctiva are clear. Mucous membranes of the mouth are moist. Neck is supple. There is no elevated jugular venous pressure. No carotid bruit is heard. HEART EXAMINATION: Heart S1 and S2 systolic ejection murmur is heard. CHEST EXAMINATION: Lungs reveal fine crackles to bilateral bases. ABDOMEN: Soft, nontender. Bowel sounds are heard. No organomegaly noted. EXTREMITIES: 2+ peripheral pulses with no evidence of peripheral edema and no calf tenderness noted. NEUROLOGIC patient is awake, alert and oriented X3. - Labs CBC & Chem 7: 02/23/18 06:23 02/24/18 06:10 Labs: Abnormal Lab Results - Last 24 Hours (Table) 02/24/18 Range/Units 06:10 Potassium 3.4 L (3.5-5.1) mmol/L BUN 19 H (7-17) mg/dL Creatinine 1.20 H (0.52-1.04) mg/dL Glucose 101 H (74-99) mg/dL Microbiology - Last 24 Hours (Table) 02/18/18 20:18 Blood Culture - Preliminary Blood No Growth after 120 hours Assessment and Plan Plan: Assessment and plan #1 acute hypoxic respiratory failure secondary to bilateral pneumonia as well as systolic congestive heart failure acute on chronic. #2 nonischemic cardiomyopathy, most recent echocardiogram with Doppler study was performed in January which revealed an ejection fraction of 35%. #3 hypotension, likely secondary to pneumonia and sepsis. Patient is currently not on beta richmond or ANALIA inhibitor because of that. #4 paroxysmal atrial fibrillation, on Xarelto for anticoagulation #5 PAD with prior carotid endarterectomy #6 anxiety #7 hyperlipidemia Plan From cardiology's perspective, we'll continue current dose of IV Lasix. We will resume a small dose of beta richmond today, if blood pressure remains stable and creatinine remains stable we will reinitiate ANALIA inhibitor as well. Repeat chest x-ray tomorrow as well as BNP level.. DNP note has been reviewed, I agree with a documented findings and plan of care. Patient was seen and examined.
[2018-02-24] MEDS: VANCOMYCIN 1,500 MG in SODIUM CHLORIDE 0.9% 250 ML IVPB SCH (15:36)
[2018-02-24] MEDS: CITALOPRAM HYDROBROMIDE 20 MG TAB PO SCH (20:28)
[2018-02-25] MEDS: ALPRAZolam 1 MG TAB PO PRN (00:23)
[2018-02-25 05:00] VITALS: BP 110/73; PULSE 100; RESP 17; TEMP 98.1
[2018-02-25] MEDS: RIVAROXABAN 20 MG TAB PO SCH (06:16)
[2018-02-25] MEDS: PIPERACILLIN-TAZOBACTAM 3.375 GM in DEXTROSE/WATER 1 50ML.BAG IVPB SCH (09:59)
[2018-02-25] MEDS: ALLOPURINOL 100 MG TAB PO SCH (10:00)
[2018-02-25] MEDS: FUROSEMIDE 10 MG/ML 2 ML VIAL IV SCH (10:01)
[2018-02-25] MEDS: PANTOPRAZOLE 40 MG/10 ML VIAL IV SCH (10:01)
[2018-02-25] MEDS: DOCUSATE 100 MG CAP PO SCH (10:01)
[2018-02-25] MEDS: SPIRONOLACTONE 25 MG TAB PO SCH (10:02)
[2018-02-25] MEDS: ASPIRIN 81 MG PO SCH (10:02)
[2018-02-25] MEDS: ALPRAZolam 0.5 MG TAB PO SCH (10:06)
--- NOTE | 2018-02-25 11:36 | P.PN ---
Subjective Progress Note Date: 02/25/18 Principal diagnosis: Acute hypoxic respiratory failure secondary to pneumonia and systolic congestive heart failure. A 72-year-old female patient who was brought into the emergency department because of worsening shortness of breath. Her history is a rather vague 1. She initially started having some nausea and emesis and subsequently she started having pain across her posterior chest worse with breathing in addition to cough and also blood-tinged sputum and worsening shortness of breath. She apparently went to primary care physician she was given a pain shot or a steroid shot and she was discharged home. Subsequently her condition got worse and she end up coming to the emergency department for worsening shortness of breath. No history of COPD. Most of asthma. Most of coronary artery disease pH is known to have congestion heart failure the patient has an AICD in place. In the emergency department, the patient was found to have some cardiomegaly on her chest x-ray and bilateral lower lobe pulmonary infiltrates. BNP level was elevated at 3000 range. Lactic acid level was at 2.4. She was given IV fluids around 1/2 L and the patient got transferred to the intensive care unit after being started on a combination of Zosyn and vancomycin. Nevertheless, overnight she became progressively more short of breath. She was placed on high flow oxygen. Initially she was at 3 L and she was brought up to 10 L. I was contacted overnight and I give the patient dose of Lasix 60 mg IV push. Subsequent she produced excellent amount of urine output in the order of 1 L as her shortness of breath improved. Currently she is on 8 L high flow and she is breathing easier and she is less short of breath. On examination she still having tach and lung bases bilaterally. CAT scan of the chest was done and there was no evidence of any pulmonary embolism. There was cardiomegaly and she has bilateral lower lobe pulmonary infiltrates with pleural effusions suggestive of congestion heart failure. Some nonspecific mediastinal lymph nodes are also seen. She is feeling better. The pain is subsided. She is on anticoagulation on long-term basis with Xarelto and aspirin. She is not having any hemoptysis for now. No previous history of DVT. No previous history of pulmonary embolism. She essentially runs a lower blood pressure and she claims that her blood pressure systolic runs in the mid 90s. No leukocytosis. Clear function is stable. On 02/20/2018, the patient is feeling better clinically. She is less short of breath. She has been weaned down to 2 by nasal cannula. The patient overnight became progressively more hypotensive. She had required pressors and she was requiring as high as 8 mics of norepinephrine infusion for blood pressure control. Subsequently urine output improved. Pressors were gradually weaned off as the patient is also being treated with accommodation of Zosyn and vancomycin. Her urine output improved. No pressure improved. Oxygenation is also improved and the patient is currently to 2 L about 2 by nasal cannula. Chest x-ray still showing bilateral lower lobe pulmonary infiltrates/CHF. No fever. No chills. She still cough and output some bloody mucus probably due to underlying pneumonia. Her metabolic acidosis also improved and the bicarb level is up to 22. Renal function is stable with a creatinine of 0.9. Cultures negative. Clinically she is awake and alert and following commands and answering questions appropriately. She denies having any chest pain. She reports improvement in her shortness of breath and symptoms of pneumonia and CHF. On 02/21/2018, patient was evaluated in the ICU, she is presently off norepinephrine, seems to be hemodynamically stable. Feeling much better, breathing a lot easier, remains on antibiotics, remains on diuretics. Hardly any cough, no wheezing, no shortness of breath, no chest pain, no nausea no vomiting no abdominal pain. Appetite reviewed she had a relatively normal CBC and the relatively normal basic metabolic profile. The patient was seen again today 02/22/2018 in follow-up on the selective care unit. She is awake and alert in no acute distress. She still has some dyspnea on exertion. She does have a productive cough with some blood-tinged sputum. Culture is pending. White count 6.2. Hemoglobin 10.4. Creatinine 0.94. Bicarb 23. She remains on the ankle myosin and Zosyn. Continued on IV diuretics. She is maintaining good O2 saturations in the 90s on 2 L/m per nasal cannula. The patient is seen again today 02/23/2018 in follow-up on the selective care unit. She is currently resting comfortably in bed. She complains of fatigue. No worsening shortness of breath, cough or congestion. She is maintaining O2 saturations in the 90s on 2 L/m per nasal cannula. She's been afebrile. Sputum is positive for Meg only white count 7.7. Hemoglobin 10.5. Creatinine 1.23. She remains on vancomycin and Zosyn. She remains on IV Lasix. The patient is seen again today 02/24/2018 in follow-up on the selective care unit. She is awake and alert in no acute distress. She is breathing easier today as compared to yesterday. Continue good O2 saturations in the 90s on 3 L/ m per nasal cannula. She is afebrile. Hemodynamically stable. Asked x-ray continued to show left lower lobe pneumonia/atelectasis. She remains on vancomycin and Zosyn. She remains on IV diuretics. Creatinine 1.20. The patient is seen again today 02/25/2018 in follow-up on the selective care unit. She is currently up ambulating in her room. She is awake and alert in no acute distress. No worsening shortness of breath, cough or congestion. Still somewhat fatigued and weak. Still with some dyspnea on exertion. Still requiring 3 L/m per nasal cannula to maintain O2 saturations in the 90s. She's afebrile. Today's with faint crackles in the left lower lobe. She's been treated with vancomycin and Zosyn. She's been diuresed. She is anxious to go home. Objective - Vital Signs Vital signs: Vital Signs Temp 98.1 F 02/25/18 04:00 Pulse 100 02/25/18 04:00 Resp 17 02/25/18 04:00 BP 110/73 02/25/18 04:00 Pulse Ox 93 L 02/25/18 08:04 Intake & Output 02/24/18 02/25/18 02/25/18 18:59 06:59 18:59 Intake Total 300 240 Output Total 1100 Balance 300 -1100 240 Weight 79.5 kg Intake: Oral 300 240 Output: Urine 1100 Other: Voiding Method Toilet # Voids 1 # Bowel Movements 1 - Exam GENERAL EXAM: Alert, active, comfortable in no apparent distress. HEAD: Normocephalic. EYES: Normal reaction of pupils, equal size. NOSE: Clear with pink turbinates. THROAT: No erythema or exudates. NECK: No masses, no JVD. CHEST: No chest wall deformity. LUNGS: Equal air entry with crackles in the left posterior base. CVS: S1 and S2 normal with no audible murmur, regular rhythm. ABDOMEN: No hepatosplenomegaly, normal bowel sounds, no guarding or rigidity. SPINE: No scoliosis or deformity SKIN: No rashes CENTRAL NERVOUS SYSTEM: No focal deficits, tone is normal in all 4 extremities. EXTREMITIES: There is no peripheral edema. No clubbing, no cyanosis. Peripheral pulses are intact. - Labs CBC & Chem 7: 02/23/18 06:23 02/24/18 06:10 Labs: Microbiology - Last 24 Hours (Table) 02/18/18 20:18 Blood Culture - Final Blood No Growth after 144 hours Assessment and Plan Assessment: 1 acute hypoxic respiratory failure, secondary to bilateral pneumonia along with a component of CHF which will be an acute on top of chronic CHF exacerbation. Clinically the patient is improving. Oxygenation is also improved and the patient is currently on 3 L per minute by nasal cannula. 2 acute bilateral lower lobe pneumonia in addition to a CHF exacerbation resulting in significant shortness of breath and acute hypoxic respiratory failure, improving and the patient remains on vancomycin and Zosyn along with IV diuretics. 3 pleuritic lower lobe chest pain, likely pneumonia and pulmonary embolism was ruled out based on the negative CT angios the chest 4 CHF with impairment of the LV function 5 hypotension secondary to pneumonia/sepsis. The patient required pressors briefly and currently she is off pressors. 6 atrial fibrillation, anticoagulated with with Xarelto 7 melanoma resected 8 gout 9 remote history of ESBL producing urine checked infection with E. coli 10 history of recurrent artery disease 11 paroxysmal atrial fibrillation current rhythm is sinus Plan: The patient is seen and evaluated by Dr. Fung. She is cleared for discharge from the pulmonary standpoint. She'll complete a course of antibiotics. May need home O2 for a while. Continue bronchodilators. She will follow-up in our office in 1 week's time. We'll repeat her chest x-ray then. She is however encouraged to call sooner with any recurrence of symptoms or other questions or concerns. I, the cosigning physician, performed a history & physical examination of the patient. Lungs sounds with crackles in the posterior bases. Maintaining good O2 saturations in the 90s on 3 L/m per nasal cannula. I discussed the assessment and plan of care with my nurse practitioner, Mari Ruano. I attest to the above note as dictated by her.
--- NOTE | 2018-02-25 15:01 | P.DS ---
Providers Date of admission: 02/18/18 16:43 Expected date of discharge: 02/25/18 Attending physician: Keisha Thornton MD Consults: 02/18/18 18:13 Consult Physician Stat Consulting Provider: Davonte Lang Consult Reason/Comments: ICU management Do you want consulting provider notified?: Already Contacted 02/21/18 08:40 Consult Physician Routine Consulting Provider: Tino Merino Consult Reason/Comments: cardiomyopathy Do you want consulting provider notified?: Yes Primary care physician: Dinosaur [facility] Course: This is a 72 year-old female. Her primary care physician is Dr. Basil Crowell. Sees Dr. Real Jackson at [facility] She has a past medical history of hypertension, gastroesophageal reflux disease, carotid stenosis and non ischemic cardiomyopathy status post AICD with reported EF 30 -35 %, gout, anxiety and depression. She was recently hospitalized on June 08 following a fall secondary to dizziness with orthostatic changes ruled out. She ended up having a left radial fracture and left pelvic fracture. She was seen by orthopedics and they recommended splint and sling to the left arm and toe-touch weightbearing on the left lower extremity. Patient was again admitted on June 20 with confusion likely secondary to tramadol. She did present with history of passing out. AICD interrogation was done during the admission and found to have normal service function. Patient was again seen in 2017 with altered mental status sec to benzodiazepine which was held. Last seen on January for acute chest pain. Stress test was done during that admission which suggested old infarct but no reversible ischemia. Patient comes in today with acute onset of shortness of breath and cough production that started yesterday. She had multiple episodes of vomiting this morning. Patient documents having blood-tinged sputum production. She denies any fever or chills. She denies any history of pulmonary embolism or DVT. She is currently on xarelto for paroxysmal atrial fibrillation. Vitals obtained in the ER, EKG was regular was and briefly in atrial fibrillation, P respiratory rate of 21 with blood pressure 103/59. in the er suggestive wbc 6.1 hemoglobin 11.2, creatinine 1.14 which is close to patient's baseline (0.9- 1.2. Lactic acid 2.4, BNP 4000, UA clear of any infection. EKG suggestive T- wave inversion in lead V5 and V6 but no ST changes seen. Chest x-ray obtained suggested bibasilar infiltrates worse in the right lower lobe. Patient will be monitored in the ICU overnight for possible transfer to the floor in the morning. Antibiotics will be initiated for HCAP Coverage with Zosyn and vancomycin. Troponin 2 negative, we will repeat in 6 hours. Lactic acid was repeated every 6 hours 3. Patient received a bolus of 1500. Hold further IV fluids due to concern of CHF. CT chest with IV contrast will be obtained for concern of hemoptysis and possible need for bronchoscopy. Pulmonary consult follow up in the morning 02/19: Patient is feeling better today she continues to be somewhat short of breath, she did receive Lasix yesterday with significant diuresis, her x-ray significant for congestive heart failure, her computed tomography scan significant for bilateral lower lobe pneumonia, in the presence of mild hemoptysis I believe the patient has no coffee-ground emesis this is all related to her pneumonia. We will start the patient back in her Xarelto. 02/20: Patient was on Levophed yesterday at 10 mics per hour she was taken off of it at 7:00 in the morning today she is feeling a lot better today she continues to require about 3 L of oxygen nasal cannula, she denies any chest pain or short of breath she continues to have some bloody tinged sputum, she has no abdominal pain, nausea or vomiting, she will stay in the ICU. 02/21: Patients reports she is feeling better today. She denies any shortness of breath or chest pain. Lovophed was stopped yesterday, blood pressure remains stable at 108/58. Blood and urine cultures show no growth to date. Sputum cultures are still pending. Repeat chest xray shows stable mild cardiomegaly with interstitial changes and patchy retrocardiac atelectasis/infiltrates. She will be moved off the ICU floor today if a bed is available to selective care. 02/22: Pulse ox is running 90-93% on 2 L nasal cannula. Patient has been afebrile. White count is normal, hemoglobin stable at 10.4. Electrolytes are all within normal limits. Patient is continued on IV Zosyn and vancomycin. Beta richmond has been on hold due to hypotension. Patient continues to have shortness of breath although she is improved from Wednesday she does not feel any improvement since yesterday. Lower extremity edema is improved. Patient has had loose stool. PT and OT has been added to evaluate for rehab. 02/23: Patient continues to complain of shortness of breath. We will S4 repeat chest x-ray today. Pulse ox is running 95% on 2 L nasal cannula. Patient has been afebrile. Heart rate running in the 80s. Hemoglobin is stable at 10.5, creatinine slightly increased to 1.23. No medication changes made. PT and OT eval is pending. 02/24: Pulse ox is 93% on 3 L nasal cannula. Patient remains afebrile. Heart rate in the 90s. Potassium is 3.4 will be replaced. BUN 19 and creatinine 1.2. Patient remains on Lasix 20 mg IV twice daily and Aldactone 50 mg daily along with DuoNeb treatments and IV antibiotics with Zosyn and vancomycin. PT and OT are following and recommended home with homecare. Patient states that her breathing is finally improving. She has no lower extremity edema. She did have a nosebleed last night from dry air and saline nasal gel ordered. Patient has had 2 bowel movements that are loose and denies any abdominal pain. 02/25: Patient states she is much better today. She is normally on home O2 at 2 L nasal cannula. Sucks is 93% on [address] Fung has cleared the patient for discharge and she will be discharged in stable condition. Discharge diagnoses: 1. Acute on chronic hypoxemic respiratory failure due to Bilateral pneumonia with sepsis and acute systolic heart failure. 2. Acute on chronic systolic congestive heart failure and nonischemic cardiomyopathy with known ejection fraction of 30-35% status post defibrillator which was interrogated in January 2018. 3. Hypotension secondary to septic shock. 4. Hematemesis vs hemoptysis. 5. Paroxysmal atrial fibrillation. 6. Recurrent depression. 7. Gout, stable. 8. Generalized anxiety disorder. 9. Lactic acidosis likely secondary to sepsis Discharge plan: Home with [facility] Impression and plan of care have been directed as dictated by the signing physician. Nancy Olivera nurse practitioner acting as scribe for signing physician. Patient Condition at Discharge: Good Plan - Discharge Summary Discharge Rx Participant: No New Discharge Prescriptions: New Doxycycline Hyclate 100 mg PO BID #20 tab Continue Citalopram Hydrobromide [CeleXA] 40 mg PO HS@2100 Rivaroxaban [Xarelto] 20 mg PO DAILY Ranitidine HCl [Zantac] 150 mg PO BID Spironolactone 50 mg PO DAILY Potassium Chloride ER [K-Dur 20] 40 meq PO DAILY Aspirin EC [Ecotrin Low Dose] 81 mg PO DAILY Sennosides-Docusate Sodium [Senokot-S] 1 tab PO BID Torsemide [Demadex] 80 mg PO DAILY Allopurinol [Zyloprim] 100 mg PO DAILY ALPRAZolam [Xanax] 2 mg PO HS PRN PRN Reason: Anxiety Metoprolol Succinate (ER) [Toprol XL] 25 mg PO DAILY #30 tab.er.24h Discharge Medication List Citalopram Hydrobromide [CeleXA] 40 mg PO HS@2100 07/16/14 [History] Ranitidine HCl [Zantac] 150 mg PO BID 06/27/16 [History] Rivaroxaban [Xarelto] 20 mg PO DAILY 06/27/16 [History] Aspirin EC [Ecotrin Low Dose] 81 mg PO DAILY 08/23/17 [History] Potassium Chloride ER [K-Dur 20] 40 meq PO DAILY 08/23/17 [History] Sennosides-Docusate Sodium [Senokot-S] 1 tab PO BID 08/23/17 [History] Spironolactone 50 mg PO DAILY 08/23/17 [History] Torsemide [Demadex] 80 mg PO DAILY 08/23/17 [History] ALPRAZolam [Xanax] 2 mg PO HS PRN 01/12/18 [History] Allopurinol [Zyloprim] 100 mg PO DAILY 01/12/18 [History] Metoprolol Succinate (ER) [Toprol XL] 25 mg PO DAILY #30 tab.er.24h 01/13/18 [Rx ] Doxycycline Hyclate 100 mg PO BID #20 tab 02/25/18 [Rx] Follow up Appointment(s)/Referral(s): Tino Merino MD [STAFF PHYSICIAN] - 03/16/18 3:30 pm Basil Crowell DO [Primary Care Provider] - 1 Week (Office will call with follow up appointment.) Davonte Lang MD [STAFF PHYSICIAN] - 03/08/18 2:30 pm (With Mari Ruano NP.) [facility] Visiting Nurse, [NON-STAFF] - Patient Instructions/Handouts: Heart Failure (DC), Pleural Effusion (DC), Low- Sodium Diet (DC), Pneumonia (DC) Discharge Disposition: HOME WITH HOME HEALTH SERVICES
[2018-02-26] MEDS ORDERED: PANTOPRAZOLE 40 MG TABLET PO SCH (07:30)
== END 2018-02-25 11:55 | disposition home health service (06) | DRG 871 ==
LOC: EC 13:35 → 6SEL 16:43 → 6ICU 19:36 → 6SEL 02-21 17:39
PROVIDERS: ADMIT Internal Medicine; ATTEND Internal Medicine
DX: A41.9 Sepsis, unspecified organism (principal); I50.23 Acute on chronic systolic (congestive) heart failure; J18.9 Pneumonia, unspecified organism; J96.21 Acute and chronic respiratory failure with hypoxia; R65.21 Severe sepsis with septic shock; E87.2 Acidosis; F33.9 Major depressive disorder, recurrent, unspecified; I42.9 Cardiomyopathy, unspecified; J98.11 Atelectasis; E78.5 Hyperlipidemia, unspecified; F41.1 Generalized anxiety disorder; I11.0 Hypertensive heart disease with heart failure; I25.10 Atherosclerotic heart disease of native coronary artery without angina pectoris; I48.2 Chronic atrial fibrillation; I49.3 Ventricular premature depolarization; I73.9 Peripheral vascular disease, unspecified; K21.9 Gastro-esophageal reflux disease without esophagitis; M10.9 Gout, unspecified; R04.0 Epistaxis; Z79.01 Long term (current) use of anticoagulants; Z85.820 Personal history of malignant melanoma of skin; Z87.891 Personal history of nicotine dependence; Z90.710 Acquired absence of both cervix and uterus; Z95.810 Presence of automatic (implantable) cardiac defibrillator; Z99.81 Dependence on supplemental oxygen; Z88.1 Allergy status to other antibiotic agents; Z88.5 Allergy status to narcotic agent; Z88.8 Allergy status to other drugs, medicaments and biological substances; Z79.82 Long term (current) use of aspirin
CPT/HCPCS: 36415; 71045; 71046; 71260; 80048; 80053; 80061; 80202; 81001; 81003; 82150; 82550; 82553; 83036; 83605; 83690; 83735; 83880; 84100; 84484; 85025; 85610; 85730; 87040; 87070; 87086; 87205; 93005; 94640; 94760; 96361; 96365; 96366; 96368; 96375; 99285

== ENCOUNTER 2018-03-06 07:43 | Inpatient (IN) | payer MEDICARE ==
[2018-03-06] MEDS ORDERED: methylPREDNISolone SOD SUCCI 125 MG/2 ML VIAL IV STA (07:49)
[2018-03-06] MEDS ORDERED: FUROSEMIDE 10 MG/ML 4 ML VIAL IV STA (07:49)
--- NOTE | 2018-03-06 07:54 | ED ---
SOB HPI - General Stated Complaint: SOB Time Seen by Provider: 03/06/18 07:43 Source: patient, RN notes reviewed Mode of arrival: ambulatory Limitations: no limitations - History of Present Illness Initial Comments: This is a 72-year-old female history of COPD CHF among other things who presents by EMS with complaints of shortness of breath cough with yellow and sometimes red phlegm dry heaves. He also had fevers. Upon arrival EMS noted that she was very dyspneic and did require updraft treatment. Also complains of right shoulder pain which is worse with movement has been going on for several weeks. Of note she was admitted to the hospital and discharged about a week ago for bilateral pneumonia. She feels as if she is getting no better. She states she's not able to sleep. No overt chest pain no abdominal pain no focal weakness. MD Complaint: shortness of breath, cough - Related Data Home Medications Medication Instructions Recorded Confirmed Citalopram Hydrobromide [CeleXA] 40 mg PO HS@2100 07/16/14 02/18/18 Ranitidine HCl [Zantac] 150 mg PO BID 06/27/16 02/18/18 Rivaroxaban [Xarelto] 20 mg PO DAILY 06/27/16 02/18/18 Aspirin EC [Ecotrin Low Dose] 81 mg PO DAILY 08/23/17 02/18/18 Potassium Chloride ER [K-Dur 20] 40 meq PO DAILY 08/23/17 02/18/18 Sennosides-Docusate Sodium 1 tab PO BID 08/23/17 02/18/18 [Senokot-S] Spironolactone 50 mg PO DAILY 08/23/17 02/18/18 Torsemide [Demadex] 80 mg PO DAILY 08/23/17 02/18/18 ALPRAZolam [Xanax] 2 mg PO HS PRN 01/12/18 02/18/18 Allopurinol [Zyloprim] 100 mg PO DAILY 01/12/18 02/18/18 Previous Rx's Medication Instructions Recorded Metoprolol Succinate (ER) [Toprol 25 mg PO DAILY #30 tab.er.24h 01/13/18 XL] Doxycycline Hyclate 100 mg PO BID #20 tab 02/25/18 Allergies Allergy/AdvReac Type Severity Reaction Status Date / Time cephalexin monohydrate Allergy Rash/Hives Verified 02/18/18 14:53 [From Keflex] levofloxacin [From Levaquin] Allergy Rash/Hives Verified 02/18/18 14:53 lisinopril Allergy Rash/Hives Verified 02/18/18 14:53 morphine Allergy Rash/Hives/ Verified 02/18/18 14:53 Sob warfarin [From Coumadin] Allergy Rash/Hives Verified 02/18/18 14:53 codeine AdvReac Nausea & Verified 02/18/18 14:53 Vomiting hydrocodone [From Milmine] AdvReac Nausea & Verified 02/18/18 14:53 Vomiting ketorolac [From Toradol] AdvReac Dyspnea Verified 02/18/18 14:53 Review of Systems ROS Statement: Those systems with pertinent positive or pertinent negative responses have been documented in the HPI. ROS Other: All systems not noted in ROS Statement are negative. Past Medical History Past Medical History: Atrial Fibrillation, Cancer, Heart Failure, GERD/Reflux, Pneumonia, Syncope Additional Past Medical History / Comment(s): CHF and the patient has an AICD in place, chronic atrial fibrillation, acid reflux, previous history of melanoma involving the nose that has been resected, hypoxic respiratory failure patient claims to use oxygen overnight at 2 L, previous history of endocarditis stenosis, gout, history of falls, history of urine checked infection with E. coli and this was an ESBL producing organism back in June 2016, chronic anxiety History of Any Multi-Drug Resistant Organisms: ESBL Date of last positivie culture/infection: 06/27/16 ESBL-E.coli MDRO Source:: Urine Past Surgical History: AICD, Hysterectomy, Pacemaker, Tubal Ligation Additional Past Surgical History / Comment(s): LT CAROTID ENDARTERECTOMY,AICD- [facility]- SEES SPECIALIST IN [place] 10/02/14 TO CHECK AICD Past Anesthesia/Blood Transfusion Reactions: Motion Sickness Additional Past Anesthesia/Blood Transfusion Reaction / Comment(s): clausterphobia Type of Cardiac Device: Permanent Pacemaker, AICD Device Placement Date:: per pt 05/04/16 Past Psychological History: No Psychological Hx Reported Smoking Status: Former smoker - Past Family History Father Additional Family Medical History / Comment(s): Father from old age. Daughter(s) Additional Family Medical History / Comment(s): Patient has 2 adult children with no major medical problems. Mother Family Medical History: CVA/TIA Additional Family Medical History / Comment(s): Mother from old age. General Exam - General Exam Comments Initial Comments: This is a well-developed well-nourished awake alert oriented 3 female Limitations: no limitations General appearance: alert, anxious, in distress Head exam: Present: atraumatic, normocephalic, normal inspection Eye exam: Present: normal appearance, PERRL, EOMI. Absent: scleral icterus, conjunctival injection, periorbital swelling ENT exam: Present: mucous membranes dry Neck exam: Present: normal inspection. Absent: tenderness, meningismus, lymphadenopathy Respiratory exam: Present: rales, rhonchi (Bi- basilar rhonchi), decreased breath sounds Cardiovascular Exam: Present: tachycardia GI/Abdominal exam: Present: soft, normal bowel sounds. Absent: distended, tenderness, guarding, rebound, rigid Extremities exam: Absent: pedal edema Back exam: Present: normal inspection Neurological exam: Present: alert, oriented X3, CN II-XII intact Psychiatric exam: Present: normal affect, normal mood Skin exam: Present: warm, dry, intact, normal color. Absent: rash Course Vital Signs 03/06/18 03/06/18 03/06/18 07:44 08:38 08:57 Temperature 98.5 F Pulse Rate 101 H 108 H Respiratory 18 20 22 Rate Blood Pressure 106/80 143/81 O2 Sat by Pulse 92 L 92 L Oximetry 03/06/18 10:06 Temperature Pulse Rate 102 H Respiratory 18 Rate Blood Pressure 139/78 O2 Sat by Pulse 92 L Oximetry - Reevaluation(s) Reevaluation #1: 03/06/18 11:19 Reevaluation after initial therapy reveals patient she'll somewhat improved today complaining of right shoulder pain. Medical Decision Making - Medical Decision Making Patient still has dyspnea the presentation consistent with COPD and congestive heart failure with chronic right shoulder pain. Discussed the case with Dr. Thornton. Patient will be admitted with cardiology consultation. - Lab Data Result diagrams: 03/06/18 08:22 03/06/18 08:22 Lab Results 03/06/18 03/06/18 03/06/18 Range/Units 08:22 08:22 08:22 WBC 8.9 (3.8-10.6) k/uL RBC 3.59 L (3.80-5.40) m/uL Hgb 10.3 L (11.4-16.0) gm/dL Hct 32.4 L (34.0-46.0) % MCV 90.0 (80.0-100.0) fL MCH 28.6 (25.0-35.0) pg MCHC 31.8 (31.0-37.0) g/dL RDW 16.0 H (11.5-15.5) % Plt Count 327 (150-450) k/uL Neutrophils % 80 % Lymphocytes % 11 % Monocytes % 6 % Eosinophils % 0 % Basophils % 1 % Neutrophils # 7.1 (1.3-7.7) k/uL Lymphocytes # 1.0 (1.0-4.8) k/uL Monocytes # 0.6 (0-1.0) k/uL Eosinophils # 0.0 (0-0.7) k/uL Basophils # 0.1 (0-0.2) k/uL Hypochromasia Slight Anisocytosis Slight PT 22.2 H (9.0-12.0) sec INR 2.5 H (<1.2) APTT 30.1 H (22.0-30.0) sec D-Dimer 4.28 H (<0.60) mg/L FEU Sodium 135 L (137-145) mmol/L Potassium 4.2 (3.5-5.1) mmol/L Chloride 101 (98-107) mmol/L Carbon Dioxide 20 L (22-30) mmol/L Anion Gap 14 mmol/L BUN 46 H (7-17) mg/dL Creatinine 1.60 H (0.52-1.04) mg/dL Est GFR (CKD-EPI)AfAm 37 (>60 ml/min/1.73 sqM) Est GFR (CKD-EPI)NonAf 33 (>60 ml/min/1.73 sqM) Glucose 110 H (74-99) mg/dL Calcium 8.8 (8.4-10.2) mg/dL Magnesium 1.8 (1.6-2.3) mg/dL Total Bilirubin 2.1 H (0.2-1.3) mg/dL AST 1448 H (14-36) U/L ALT 1090 H (9-52) U/L Alkaline Phosphatase 170 H (38-126) U/L Total Creatine Kinase (30-135) U/L CK-MB (CK-2) (0.0-2.4) ng/mL CK-MB (CK-2) Rel Index Troponin I (0.000-0.034) ng/mL NT-Pro-B Natriuret Pep pg/mL Total Protein 6.2 L (6.3-8.2) g/dL Albumin 3.3 L (3.5-5.0) g/dL 03/06/18 03/06/18 Range/Units 08:22 08:22 WBC (3.8-10.6) k/uL RBC (3.80-5.40) m/uL Hgb (11.4-16.0) gm/dL Hct (34.0-46.0) % MCV (80.0-100.0) fL MCH (25.0-35.0) pg MCHC (31.0-37.0) g/dL RDW (11.5-15.5) % Plt Count (150-450) k/uL Neutrophils % % Lymphocytes % % Monocytes % % Eosinophils % % Basophils % % Neutrophils # (1.3-7.7) k/uL Lymphocytes # (1.0-4.8) k/uL Monocytes # (0-1.0) k/uL Eosinophils # (0-0.7) k/uL Basophils # (0-0.2) k/uL Hypochromasia Anisocytosis PT (9.0-12.0) sec INR (<1.2) APTT (22.0-30.0) sec D-Dimer (<0.60) mg/L FEU Sodium (137-145) mmol/L Potassium (3.5-5.1) mmol/L Chloride (98-107) mmol/L Carbon Dioxide (22-30) mmol/L Anion Gap mmol/L BUN (7-17) mg/dL Creatinine (0.52-1.04) mg/dL Est GFR (CKD-EPI)AfAm (>60 ml/min/1.73 sqM) Est GFR (CKD-EPI)NonAf (>60 ml/min/1.73 sqM) Glucose (74-99) mg/dL Calcium (8.4-10.2) mg/dL Magnesium (1.6-2.3) mg/dL Total Bilirubin (0.2-1.3) mg/dL AST (14-36) U/L ALT (9-52) U/L Alkaline Phosphatase (38-126) U/L Total Creatine Kinase 96 (30-135) U/L CK-MB (CK-2) 2.1 (0.0-2.4) ng/mL CK-MB (CK-2) Rel Index 2.2 Troponin I 0.030 (0.000-0.034) ng/mL NT-Pro-B Natriuret Pep 15683 pg/mL Total Protein (6.3-8.2) g/dL Albumin (3.5-5.0) g/dL - EKG Data -: EKG Interpreted by Fl EKG shows normal: sinus rhythm (Sinus rhythm of 100 TX interval 188 QRS duration 110 QT since QTC 400/516 red deviation poor R-wave progression prolonged QT) - Radiology Data Radiology results: report reviewed (Imaging showed no definite acute findings. Evidence COPD and cardiomegaly.), image reviewed Critical Care Time Critical Care Time: Yes Critical Care Time: 31 minutes of critical care time which includes initial presentation which included monitoring the EMS run and discussed with paramedics history physical labs x-rays several reevaluation of the patient review of old charting discussed with the patient and family regarding findings assessment the admitting physician admission orders and documentation of the above Disposition Clinical Impression: Congestive heart failure, Acute exacerbation of chronic obstructive airways disease, Adult respiratory distress syndrome Disposition: ADMITTED IP TO THIS [facility] Condition: Stable Referrals: Basil Crowell DO [Primary Care Provider] - 1-2 days
[2018-03-06 08:49] LABS: Albumin 3.3 g/dL (3.5-5.0); Calcium 8.8 mg/dL (8.4-10.2); Total Bilirubin 2.1 mg/dL (0.2-1.3); Total Protein 6.2 g/dL (6.3-8.2)
[2018-03-06 08:51] LABS: Anisocytosis Slight; Basophils # (A) 0.1 k/uL (0-0.2); Basophils % (A) 1 %; Eosinophils % (A) 0 %; HCT 32.4 % (34.0-46.0); HGB 10.3 gm/dL (11.4-16.0); Hypochromasia Slight; Lymphocytes % (A) 11 %; MCH 28.6 pg (25.0-35.0); MCHC 31.8 g/dL (31.0-37.0); Mean Platelet Volume 7.8; Monocytes # (A) 0.6 k/uL (0-1.0); Monocytes % (A) 6 %; Neutrophils # (A) 7.1 k/uL (1.3-7.7); Neutrophils % (A) 80 %; Platelet Count 327 k/uL (150-450); RBC 3.59 m/uL (3.80-5.40); WBC 8.9 k/uL (3.8-10.6)
--- NOTE | 2018-03-06 08:53 | XR ---
EXAMINATION TYPE: XR chest 2V DATE OF EXAM: 03/06/2018 HISTORY: difficulty breathing. REFERENCE: Previous study dated 02/23/2018. FINDINGS: There is a multilead pacing device in place on the left. The heart is mildly enlarged. The lungs are overinflated. The lungs appear clear. Pleural spaces are clear. IMPRESSION: 1. CARDIOMEGALY. 2. COPD.
[2018-03-06 08:57] LABS: Potassium 4.2 mmol/L (3.5-5.1)
[2018-03-06 08:58] LABS: Magnesium 1.8 mg/dL (1.6-2.3)
[2018-03-06 08:59] LABS: INR 2.5 (<1.2); Partial Thromboplastin Time 30.1 sec (22.0-30.0); Prothrombin Time 22.2 sec (9.0-12.0)
[2018-03-06 09:18] LABS: Creatine Kinase MB 2.1 ng/mL (0.0-2.4); Troponin I 0.03 ng/mL (0.000-0.034)
[2018-03-06 09:22] LABS: D-Dimer 4.28 mg/L FEU (<0.60)
[2018-03-06] MEDS ORDERED: ORPHENADRINE 30 MG/ML 2 ML VIAL IVP STA (10:17)
[2018-03-06] MEDS ORDERED: ALPRAZolam 1 MG TAB PO PRN ×2 (11:31→14:46)
[2018-03-06] MEDS ORDERED: HYDROcodone/APAP 5-325MG 1 EACH TAB PO STA (11:41)
[2018-03-06] MEDS ORDERED: methylPREDNISolone SOD SUCCI 125 MG/2 ML VIAL IV SCH (12:00)
[2018-03-06] MEDS: IPRATROPIUM-ALBUTEROL 3 ML NEB INHALATION SCH ×4 (12:48→23:50)
--- NOTE | 2018-03-06 14:44 | P.HPIM ---
History of Present Illness H&P Date: 03/06/18 This is a 72 year-old female. Her primary care physician is Dr. Basil Crowell. Sees Dr. Real Jackson at [facility] She has a past medical history of hypertension, gastroesophageal reflux disease, carotid stenosis and non ischemic cardiomyopathy status post AICD with reported EF 30 -35 %, gout, anxiety and depression. She was recently hospitalized on June 08 following a fall secondary to dizziness with orthostatic changes ruled out. She ended up having a left radial fracture and left pelvic fracture. She was seen by orthopedics and they recommended splint and sling to the left arm and toe-touch weightbearing on the left lower extremity. Patient was again admitted on June 20 with confusion likely secondary to tramadol. She did present with history of passing out. AICD interrogation was done during the admission and found to have normal service function. Patient was again seen in 2017 with altered mental status sec to benzodiazepine which was held. Last seen on January for acute chest pain but stress test was negative Patietn was admitted for bilateral pneumonia with CHF exacerbation. Patient comes in again with acute shortness of breath associated with cough with sputum production. Patient states she's been noticing reddish's phlegm production for the past 2 weeks. She states she was never well was discharged from the hospital. Patient had a follow-up appointment with Dr. Schaffer tomorrow but hasn't seen a primary care physician for the past 2 weeks. Patient received breathing treatments via EMS before coming to the hospital. There was slight improvement in symptoms on arrival to the ER but patient was found to be dyspneic in the ER. Vitas obtain suggested temp of 98.5, pulse rate 104, blood pressure 133/86, saturating well on 97% on 2 L which is patient' s baseline. Chest x-ray obtained suggested cardiomegaly and COPD but no consolidation with concern for pneumonia. Labs ordered suggestive hemoglobin 10.3 which is stable from the previous admissions. Her INR was 2.5 but patient is not on Coumadin. Also elevated was d-dimer 4.28. Creatinine is above the baseline of 1.2. LFTs were elevated with AST 1448, AST 1090, alkaline phosphatase 170. ProBNP elevated to 18,300. Troponin times 10.030 albumin 3.3. Based on patient's findings and symptoms there is a concern for pulmonary embolism though CTA cannot be ordered due to increased creatinine. V/Q scan ordered. Due to the hepatic congestion an acute elevation in liver enzymes liver ultrasound ordered to rule out cholecystitis/choledocholithiasis. Patient also complaining of significant shoulder pain and limited to the joint mobility likely secondary to arthritis. Pro-calcitonin ordered. Acute hepatitis panel ordered Review of Systems Constitutional: Denies chills, Denies fever, Denies lethargy, Denies malaise, Denies poor appetite, Denies weakness, Denies weight loss Eyes: denies decreased vision, denies diplopia, denies discharge, denies pain Ears: deny: decreased hearing Ears, nose, mouth and throat: Denies dental pain, Denies headache, Denies nasal discharge, Denies nose pain Cardiovascular: Denies chest pain, Denies decreased exercise tolerance, Denies edema, Denies high blood pressure, Denies irregular heart beat, Denies palpitations, Denies paroxysmal nocturnal dyspnea, Denies rapid heart beat, Denies shortness of breath Respiratory: Endorses congestion, endorses cough, endorses cough with sputum, endorses dyspnea, endorses home oxygen, Denies wheezing Gastrointestinal: Denies abdominal pain, Denies change in bowel habits, Denies coffee ground emesis, Denies early satiety, Denies excessive gas, Denies heartburn, Denies hematemesis, Denies hematochezia, Denies loss of appetite, Denies nausea, Denies vomiting Genitourinary: Denies dysuria, Denies flank pain, Denies kidney stones, Denies menorrhagia, Denies urgency, Denies urinary frequency Musculoskeletal: Denies gait dysfunction, Denies limitation of motion, Denies morning stiffness, Denies muscle cramps Integumentary: Denies rash, Denies wounds, Denies brittle nails, Denies change in hair/nails, Denies darkening of skin Neurological: Denies balance difficulties, Denies change in speech, Denies double vision, Denies gait dysfunction, Denies loss of vision, Denies motor disturbance, Denies numbness, Denies paralysis, Denies paresthesias, Denies seizures Psychiatric: Denies anxiety, Denies depression Endocrine: Denies excessive sweating, Denies excessive thirst, Denies high blood sugars, Denies palpitations Hematologic/Lymphatic: Denies easy bruising, Denies lymphadenopathy Past Medical History Past Medical History: Atrial Fibrillation, Cancer, Heart Failure, GERD/Reflux, Pneumonia, Syncope Additional Past Medical History / Comment(s): CHF and the patient has an AICD in place, chronic atrial fibrillation, acid reflux, previous history of melanoma involving the nose that has been resected, hypoxic respiratory failure patient claims to use oxygen overnight at 2 L, previous history of endocarditis stenosis, gout, history of falls, history of urine checked infection with E. coli and this was an ESBL producing organism back in June 2016, chronic anxiety History of Any Multi-Drug Resistant Organisms: ESBL Date of last positivie culture/infection: 06/27/16 ESBL-E.coli MDRO Source:: Urine Past Surgical History: AICD, Hysterectomy, Pacemaker, Tubal Ligation Additional Past Surgical History / Comment(s): LT CAROTID ENDARTERECTOMY,AICD- [facility]- SEES [facility] IN [place] 10/02/14 TO CHECK AICD Past Anesthesia/Blood Transfusion Reactions: Motion Sickness Additional Past Anesthesia/Blood Transfusion Reaction / Comment(s): clausterphobia Type of Cardiac Device: Permanent Pacemaker, AICD Device Placement Date:: per pt 05/04/16 Past Psychological History: No Psychological Hx Reported Smoking Status: Former smoker - Past Family History Father Additional Family Medical History / Comment(s): Father from old age. Daughter(s) Additional Family Medical History / Comment(s): Patient has 2 adult children with no major medical problems. Mother Family Medical History: CVA/TIA Additional Family Medical History / Comment(s): Mother from old age. Medications and Allergies Home Medications Medication Instructions Recorded Confirmed Type Citalopram Hydrobromide [CeleXA] 40 mg PO HS@2100 07/16/14 03/06/18 History Ranitidine HCl [Zantac] 150 mg PO BID 06/27/16 03/06/18 History Rivaroxaban [Xarelto] 20 mg PO DAILY 06/27/16 03/06/18 History Aspirin EC [Ecotrin Low Dose] 81 mg PO DAILY 08/23/17 03/06/18 History Potassium Chloride ER [K-Dur 20] 40 meq PO DAILY 08/23/17 03/06/18 History Sennosides-Docusate Sodium 1 tab PO BID 08/23/17 03/06/18 History [Senokot-S] Spironolactone 50 mg PO DAILY 08/23/17 03/06/18 History Torsemide [Demadex] 80 mg PO DAILY 08/23/17 03/06/18 History ALPRAZolam [Xanax] 2 mg PO HS PRN 01/12/18 03/06/18 History Allopurinol [Zyloprim] 100 mg PO DAILY 01/12/18 03/06/18 History Metoprolol Succinate (ER) [Toprol 25 mg PO DAILY #30 tab.er.24h 01/13/18 Rx XL] Allergies Allergy/AdvReac Type Severity Reaction Status Date / Time cephalexin monohydrate Allergy Rash/Hives Verified 03/06/18 11:43 [From Keflex] levofloxacin [From Levaquin] Allergy Rash/Hives Verified 03/06/18 11:43 lisinopril Allergy Rash/Hives Verified 03/06/18 11:43 morphine Allergy Rash/Hives/ Verified 03/06/18 11:43 Sob warfarin [From Coumadin] Allergy Rash/Hives Verified 03/06/18 11:43 codeine AdvReac Nausea & Verified 03/06/18 11:43 Vomiting hydrocodone [From [place]] AdvReac Nausea & Verified 03/06/18 11:43 Vomiting ketorolac [From Toradol] AdvReac Dyspnea Verified 03/06/18 11:43 Physical Exam Vitals: Vital Signs Temp Pulse Resp BP Pulse Ox 03/06/18 13:01 106 H 20 03/06/18 12:50 104 H 20 03/06/18 12:11 98.5 F 104 H 20 133/86 97 03/06/18 11:53 104 H 20 133/86 97 03/06/18 11:31 101 H 18 120/80 99 03/06/18 10:06 102 H 18 139/78 92 L 03/06/18 08:57 108 H 22 143/81 92 L 03/06/18 08:38 20 03/06/18 07:44 98.5 F 101 H 18 106/80 92 L Intake and Output 03/05/18 03/06/18 03/06/18 22:59 06:59 14:59 Other: Weight 76.657 kg - Constitutional General appearance: cooperative, no acute distress, obese - EENT Eyes: anicteric sclerae, PERRLA, normal appearance ENT: hearing grossly normal - Neck Neck: no lymphadenopathy, normal ROM, no other, no rigidity, no stridor, no thyromegaly - Respiratory Respiratory: bilateral: Decreased air entry but clear to auscultate. No rhonchi or wheezing heard - Cardiovascular Rhythm: regular Heart sounds: normal: S1, S2 Abnormal Heart Sounds: no systolic murmur, no diastolic murmur, no rub, no S3 Gallop, no S4 Gallop - Gastrointestinal General gastrointestinal: normal bowel sounds, soft - Integumentary Integumentary: no rash - Neurologic Neurologic: CNII-XII intact - Musculoskeletal Musculoskeletal: gait normal, strength equal bilaterally - Psychiatric Psychiatric: A&O x's 3, appropriate affect Results CBC & Chem 7: 03/06/18 08:22 03/06/18 08:22 Labs: Abnormal Lab Results - Last 24 Hours (Table) 03/06/18 03/06/18 03/06/18 Range/Units 08:22 08:22 08:22 RBC 3.59 L (3.80-5.40) m/uL Hgb 10.3 L (11.4-16.0) gm/dL Hct 32.4 L (34.0-46.0) % RDW 16.0 H (11.5-15.5) % PT 22.2 H (9.0-12.0) sec INR 2.5 H (<1.2) APTT 30.1 H (22.0-30.0) sec D-Dimer 4.28 H (<0.60) mg/L FEU Sodium 135 L (137-145) mmol/L Carbon Dioxide 20 L (22-30) mmol/L BUN 46 H (7-17) mg/dL Creatinine 1.60 H (0.52-1.04) mg/dL Glucose 110 H (74-99) mg/dL Total Bilirubin 2.1 H (0.2-1.3) mg/dL AST 1448 H (14-36) U/L ALT 1090 H (9-52) U/L Alkaline Phosphatase 170 H (38-126) U/L Total Protein 6.2 L (6.3-8.2) g/dL Albumin 3.3 L (3.5-5.0) g/dL Thrombosis Risk Factor Assmnt - DVT/VTE Prophylaxis DVT/VTE Prophylaxis: Pharmacologic Prophylaxis ordered Assessment and Plan Plan: #1 acute on chronic hypoxic respiratory failure secondary to CHF exacerbation. Other differential include pulmonary edema as d-dimer elevated. Patient has never been diagnosed with COPD, but mostly asthma. Chest x-ray denies any interstitial infiltrate concerning for pulmonary edema. Creatinine elevated CTA cannot be ordered. V/Q ordered. Continue Lasix 40 IV 3 times daily francis day with Solu-Medrol 40 every 8 hr. once for input and output and daily weight. Continue DuoNeb as needed for shortness of breath. His condition unlikely to be secondary to pneumonia as consolidation seemed though patient is producing phlegm. Pro-calcitonin ordered. Pulmonary consult #2 acute kidney injury over CK D3. Hold IV fluids continue Lasix 40 IV every 8 repeat CMP tomorrow if current creatinine continues to be elevated will consider fluid bolus #3 acute transaminitis with increase in alkaline phosphatase. Ultrasound abdomen limited to rule out cholecystitis/choledocholithiasis. Hepatic congestion likely secondary to CHF #4 acute CHF exacerbation systolic with last ejection fraction noted to be 30-35 % in January 2018 patient does have AICD which was interrogated recently in January 2018. Repeat echocardiogram as patient's presentation appears to be worsening of the systolic congestive heart failure. Lasix 40 mg IV every 8 hours. Monitor input and output monitor daily weights. Patient examination does not show any sign of pulmonary edema or fluid overload. Cardiology consult placed #5 history of asthma, no documented history of COPD. Chest x-ray suggests COPD pulmonary consult placed #6. Paroxysmal Atrial fibrillation on xarelto rate controlled currently in sinus rhythm. #7 QT prolongation watch for QT prolongation medication avoid Zofran, levofloxacin and other, and QT prolonging medications . #8 hematemesis versus hemoptysis appears chronic. Continue Protonix V/Q scan ordered to rule out PE #9 recurrent depression continue citalopram 40 mg by mouth daily at bedtime #10 gout stable continue allopurinol #11 generalized anxiety disorder continue Xanax 0.5 daily 1 mg at bedtime #12 DVT prophylaxis patient on xarelto #13 GI prophylaxis with Protonix CODE STATUS full code Disposition patient may need 1-2 inpatient nights for stabilization
[2018-03-06] MEDS ORDERED: IPRATROPIUM-ALBUTEROL 3 ML NEB INHALATION PRN (14:46)
[2018-03-06] MEDS ORDERED: ACETAMINOPHEN TAB 325 MG TAB PO PRN (14:46)
--- NOTE | 2018-03-06 16:33 | US ---
EXAMINATION TYPE: US abdomen limited DATE OF EXAM: 03/06/2018 COMPARISON: NONE CLINICAL HISTORY: transaminitis, r/o choledocholithiasis. RUQ pain x 1 month; right shoulder pain per patient. EXAM MEASUREMENTS: Liver Length: 16.5 cm Gallbladder Wall: 0.5 cm CBD: 0.6 cm Right Kidney: 9.4 x 4.6 x 4.0 cm Pancreas: wnl as seen, but mid and tail obscured by overlying bowel gas Liver: wnl Gallbladder: full of mixed, mobile contents with abnormally thickened gallbladder wall; small amount of pericholecystic fluid seen on images #[id number] and #[id number]. Evidence for sonographic Farias's sign: yes CBD: wnl Right Kidney: No hydronephrosis or masses seen IMPRESSION: Echogenic bile. There are probably tiny gallstones. Mild gallbladder wall thickening cons istent with acute and chronic cholecystitis. No dilated ducts.
--- NOTE | 2018-03-06 16:35 | XR ---
EXAMINATION TYPE: XR shoulder complete RT DATE OF EXAM: 03/06/2018 COMPARISON: NONE HISTORY: Shoulder pain TECHNIQUE: 3 views FINDINGS: There is no sign of fracture nor dislocation. Joint spaces are normal. There are no patholo gic calcifications. IMPRESSION: Negative right shoulder exam.
[2018-03-06] MEDS: NITROGLYCERIN OINT 1 INCH/GM PACKET TOPICAL SCH ×3 (17:49→20:56)
[2018-03-06] MEDS: INSULIN ASPART 100 UNIT/ML 1 ML 10 ML VIAL SQ SCH ×3 (17:49→22:02)
--- NOTE | 2018-03-06 17:49 | NM ---
EXAMINATION TYPE: NM pul vent and perfuse DATE OF EXAM: 03/06/2018 COMPARISON: NONE HISTORY: Short of breath TECHNIQUE: Utilizing inhalation of 65.7 mCi Tc 99m DTPA aerosol and intravenous injection of 4.9 mCi of Tc 99m MAA, ventilation and perfusion images are acquired post injection in multiple projections. FINDINGS: There are matching bilateral defects at the lung bases. There is an enlarged heart. There is no venti lation/perfusion mismatch. IMPRESSION: Multiple matching defects corresponds to an intermediate probability of pulmonary embolism. Chest x-r ay today shows congestive heart failure with pleural effusions.
[2018-03-06] MEDS: FUROSEMIDE 10 MG/ML 4 ML VIAL IV SCH ×2 (17:50→23:43)
[2018-03-06 17:51] LABS: Glucose,Whole Blood 158 mg/dL (75-99)
[2018-03-06] MEDS: methylPREDNISolone SOD SUCCI 40 MG/ML 1 ML VIAL IV SCH ×2 (17:51→23:44)
[2018-03-06] MEDS: guaiFENesin 600 MG TABLET.ER PO SCH (20:53)
[2018-03-06] MEDS: SENNOSIDES-DOCUSATE SODIUM 1 EACH TAB PO SCH (20:53)
[2018-03-06] MEDS: FAMOTIDINE 20 MG TAB PO SCH (20:53)
[2018-03-06] MEDS: CITALOPRAM HYDROBROMIDE 20 MG TAB PO SCH (20:53)
[2018-03-06] MEDS: PIPERACILLIN-TAZOBACTAM 3.375 GM in DEXTROSE/WATER 1 50ML.BAG IVPB SCH (20:54)
[2018-03-06] MEDS: SODIUM CHLORIDE 0.9% 1,000 ML IV SCH (20:55)
[2018-03-06] MEDS ORDERED: DOXYCYCLINE HYCLATE 100 MG PO SCH (21:00)
[2018-03-06 21:45] LABS: Glucose,Whole Blood 148 mg/dL (75-99)
[2018-03-07 00:17] LABS: Glucose,Whole Blood 146 mg/dL (75-99)
[2018-03-07] MEDS: PIPERACILLIN-TAZOBACTAM 3.375 GM in DEXTROSE/WATER 1 50ML.BAG IVPB SCH ×2 (04:15→12:18)
[2018-03-07] MEDS: IPRATROPIUM-ALBUTEROL 3 ML NEB INHALATION SCH ×6 (04:34→23:26)
[2018-03-07 06:10] LABS: Glucose,Whole Blood 155 mg/dL (75-99)
[2018-03-07 06:11] LABS: Anisocytosis Slight; Basophils % (A) 0 %; Eosinophils % (A) 0 %; HCT 30.9 % (34.0-46.0); HGB 9.7 gm/dL (11.4-16.0); Hypochromasia Moderate; Lymphocytes # (A) 0.6 k/uL (1.0-4.8); Lymphocytes % (A) 7 %; MCH 28.5 pg (25.0-35.0); MCHC 31.5 g/dL (31.0-37.0); MCV 90.5 fL (80.0-100.0); Mean Platelet Volume 7.8; Monocytes # (A) 0.5 k/uL (0-1.0); Monocytes % (A) 5 %; Neutrophils # (A) 7.9 k/uL (1.3-7.7); Neutrophils % (A) 87 %; Platelet Count 174 k/uL (150-450); RBC 3.41 m/uL (3.80-5.40); RDW 16.3 % (11.5-15.5); WBC 9.1 k/uL (3.8-10.6)
[2018-03-07] MEDS: INSULIN ASPART 100 UNIT/ML 1 ML 10 ML VIAL SQ SCH ×4 (06:29→21:22)
[2018-03-07] MEDS ORDERED: PANTOPRAZOLE 40 MG TABLET PO SCH (07:30)
[2018-03-07 08:05] LABS: Albumin 3.3 g/dL (3.5-5.0); Alkaline Phosphatase 153 U/L (38-126); Anion Gap 24 mmol/L; Blood Urea Nitrogen 56 mg/dL (7-17); Calcium 9.1 mg/dL (8.4-10.2); Carbon Dioxide 12 mmol/L (22-30); Chloride 98 mmol/L (98-107); Glucose 123 mg/dL (74-99); Potassium 4.4 mmol/L (3.5-5.1); Sodium 134 mmol/L (137-145); Total Protein 6.1 g/dL (6.3-8.2)
[2018-03-07 08:20] LABS: ALT >1000 U/L (9-52); AST >750 U/L (14-36)
[2018-03-07] MEDS ORDERED: guaiFENesin SYRUP 100MG/5ML 200 MG/10 ML CUP PO PRN (08:48)
[2018-03-07] MEDS: ASPIRIN 81 MG PO SCH (08:59)
[2018-03-07] MEDS: methylPREDNISolone SOD SUCCI 40 MG/ML 1 ML VIAL IV SCH (08:59)
[2018-03-07] MEDS: METOPROLOL SUCCINATE (ER) 25 MG TAB.ER.24H PO SCH (08:59)
[2018-03-07] MEDS: FAMOTIDINE 20 MG TAB PO SCH (08:59)
[2018-03-07] MEDS: SENNOSIDES-DOCUSATE SODIUM 1 EACH TAB PO SCH ×2 (09:00→20:25)
[2018-03-07] MEDS ORDERED: FUROSEMIDE 10 MG/ML 4 ML VIAL IV SCH ×2 (09:00)
[2018-03-07] MEDS ORDERED: TORSEMIDE 20 MG TAB PO SCH (09:00)
[2018-03-07] MEDS: POTASSIUM CHLORIDE ER 20 MEQ TAB.ER PO SCH (09:00)
[2018-03-07] MEDS ORDERED: RIVAROXABAN 20 MG TAB PO SCH (09:00)
[2018-03-07] MEDS ORDERED: SPIRONOLACTONE 25 MG TAB PO SCH (09:00)
[2018-03-07] MEDS: NITROGLYCERIN OINT 1 INCH/GM PACKET TOPICAL SCH ×4 (09:01→23:04)
[2018-03-07] MEDS: ALLOPURINOL 100 MG TAB PO SCH (09:01)
[2018-03-07] MEDS: guaiFENesin 600 MG TABLET.ER PO SCH ×2 (09:01→20:25)
--- NOTE | 2018-03-07 10:10 | CONS ---
JOSEPH Yung is a 72-year-old lady with history of cardiomyopathy with congestive heart failure, status post AICD, atrial fibrillation, who comes to hospital complaining of shortness of breath that was sudden onset, moderate intensity without clear cut relieving or exacerbating factors. She is admitted with a diagnosis of acute exacerbation of chronic systolic heart failure treated with IV Lasix with significant improvement in her symptoms. At the time of my evaluation this morning, she appears comfortable at rest and her shortness of breath has improved. The patient has known cardiomyopathy and has an ejection fraction of 30% to 35%. The patient has had recent AICD interrogation and that was normal. She also complains of right arm pain that seems clearly musculoskeletal. She has right shoulder pain and has discomfort in the arm with moments. D-dimer was elevated on this admission and she underwent V/Q scan that was intermediate probability for pulmonary embolism, but clinically the probability of pulmonary embolism is very low. Her chest x-ray mostly shows congestive heart failure and pleural effusions and her shortness of breath has improved with intravenous diuretics. PAST MEDICAL HISTORY: Significant for cardiomyopathy with congestive heart failure, paroxysmal atrial fibrillation, status post AICD, hypertension. MEDICATIONS: Medications at home include Toprol XL 25 daily, Celexa 40 daily, aspirin, Zyloprim, Xanax, Zantac, Xarelto, Aldactone, Demadex, and Senokot. ALLERGIES: Patient has multiple drug allergies including KEFLEX, LEVAQUIN, LISINOPRIL, MORPHINE, COUMADIN, CODEINE, NORCO, and TORADOL. FAMILY HISTORY: Family history is negative for premature coronary artery disease. SOCIAL HISTORY: Social history is negative for current smoking, EtOH abuse, or drug abuse. REVIEW OF SYSTEMS: HEENT is unremarkable. CARDIAC: As described above. RESPIRATORY: As described above. GI: Negative. GENITOURINARY: Negative. ALLERGY/IMMUNOLOGY: Negative. SKIN: Negative. MUSCULOSKELETAL: Significant for right shoulder pain. PSYCHOSOCIAL: Negative. HEMATOLOGICAL: Negative. DERM: Negative. CONSTITUTIONAL: Negative. Rest of the system review is not relevant. PHYSICAL EXAMINATION: On exam, heart rate is 90 beats per minute. Blood pressure is 118/74, respiratory rate is 18, O2 sat is 93% on 3 L. There is no jugular venous distention. Chest exam reveals diminished air entry at the bases with occasional crackles. Heart exam reveals first and second heart sounds. No gallop. Abdomen is soft. Exam of extremities reveals 1+ edema. EKG shows sinus rhythm with poor R-wave progression and prolonged QT interval. Labs show a hemoglobin of 9.7, platelet count is 170. Potassium is 4.4. BUN is 56, creatinine is 2.2. AST and ALT are elevated at more than 750 and 1000. Troponin is negative. ASSESSMENT: 1. Acute exacerbation of chronic systolic heart failure. 2. Cardiomyopathy, status post AICD. 3. Right shoulder pain, musculoskeletal. 4. Elevated liver enzymes. Workup is in progress. 5. Paroxysmal atrial fibrillation, on anticoagulant. PLAN: I will continue the IV diuretics. Continue the beta blockers, Aldactone, Xarelto. I will continue the current dose of Lasix as the patient seems to be improving and her renal functions are worsening. MMODL / IJN: [id number] /
[2018-03-07 10:41] LABS: Iron Saturation 5.32 (12.00-45.00)
[2018-03-07] MEDS: FUROSEMIDE 10 MG/ML 4 ML VIAL IV SCH (10:44)
[2018-03-07 11:19] LABS: Hepatitis A Antibody IgM Non-Reactive (Non-Reactive); Hepatitis B Core IgM Non-Reactive (Non-Reactive)
[2018-03-07] MEDS ORDERED: ONDANSETRON 4 MG/2 ML VIAL IVP PRN (11:43)
--- NOTE | 2018-03-07 11:51 | P.PN ---
Subjective Progress Note Date: 03/07/18 This is a 72 year-old female. Her primary care physician is Dr. Basil Crowell. Sees Dr. Real Jackson at [facility] She has a past medical history of hypertension, gastroesophageal reflux disease, carotid stenosis and non ischemic cardiomyopathy status post AICD with reported EF 30 -35 %, gout, anxiety and depression. She was recently hospitalized on June 08 following a fall secondary to dizziness with orthostatic changes ruled out. She ended up having a left radial fracture and left pelvic fracture. She was seen by orthopedics and they recommended splint and sling to the left arm and toe-touch weightbearing on the left lower extremity. Patient was again admitted on June 20 with confusion likely secondary to tramadol. She did present with history of passing out. AICD interrogation was done during the admission and found to have normal service function. Patient was again seen in 2017 with altered mental status sec to benzodiazepine which was held. Last seen on January for acute chest pain but stress test was negative Patisammn was admitted for bilateral pneumonia with CHF exacerbation. Patient comes in again with acute shortness of breath associated with cough with sputum production. Patient states she's been noticing reddish's phlegm production for the past 2 weeks. She states she was never well was discharged from the hospital. Patient had a follow-up appointment with Dr. Schaffer tomorrow but hasn't seen a primary care physician for the past 2 weeks. Patient received breathing treatments via EMS before coming to the hospital. There was slight improvement in symptoms on arrival to the ER but patient was found to be dyspneic in the ER. Vitas obtain suggested temp of 98.5, pulse rate 104, blood pressure 133/86, saturating well on 97% on 2 L which is patient' s baseline. Chest x-ray obtained suggested cardiomegaly and COPD but no consolidation with concern for pneumonia. Labs ordered suggestive hemoglobin 10.3 which is stable from the previous admissions. Her INR was 2.5 but patient is not on Coumadin. Also elevated was d-dimer 4.28. Creatinine is above the baseline of 1.2. LFTs were elevated with AST 1448, AST 1090, alkaline phosphatase 170. ProBNP elevated to 18,300. Troponin times 10.030 albumin 3.3. Based on patient's findings and symptoms there is a concern for pulmonary embolism though CTA cannot be ordered due to increased creatinine. V/Q scan ordered. Due to the hepatic congestion an acute elevation in liver enzymes liver ultrasound ordered to rule out cholecystitis/choledocholithiasis. Patient also complaining of significant shoulder pain and limited to the joint mobility likely secondary to arthritis. Pro-calcitonin ordered. Acute hepatitis panel ordered 03/07: Shoulder x-ray was negative. VQ scan shows multiple matching defects corresponds to intermediate probability of pulmonary embolism. Pulmonary is on consult. Patient has been seen by cardiology for acute exacerbation of chronic systolic heart failure with recommendations to continue IV Lasix. We did decrease Lasix to 40 mg IV daily. Echocardiogram report is pending. Patient is complaining of cough that is nonproductive and denies any blood in her cough. Robitussin added. Her shortness of breath is improved. Her pain in her shoulder is okay at this time. She does complain of nausea. Abdominal ultrasound showed probable tiny gallstones. Mild gallbladder wall thickening consistent with acute on chronic cholecystitis. No dilated ducts. Dr. Kaye plans no intervention at this time await GI evaluation. Patient is on a full liquid diet and fluid restriction of 2000 ML's added. Objective - Vital Signs Vital signs: Vital Signs Temp 96.8 F L 03/07/18 04:13 Pulse 106 H 03/07/18 04:53 Resp 16 03/07/18 04:13 BP 118/74 03/07/18 04:13 Pulse Ox 94 L 03/07/18 04:13 Intake & Output 03/06/18 03/07/18 03/07/18 18:59 06:59 18:59 Intake Total 590 50 0 Balance 590 50 0 Weight 76.657 kg 79.2 kg Intake: Intake, IV Titration 50 Amount Piperacillin-Tazobactam 3 50 .375 gm In Dextrose/Water 1 50ml.bag @ 12.5 mls/hr IVPB Q8H [facility] Rx#: [id number] Oral 590 0 Other: Voiding Method Toilet # Voids 1 - Exam General appearance: cooperative, no acute distress, obese - EENT Eyes: anicteric sclerae, PERRLA, normal appearance ENT: hearing grossly normal - Neck Neck: no lymphadenopathy, normal ROM, no other, no rigidity, no stridor, no thyromegaly - Respiratory Respiratory: bilateral: Decreased air entry but clear to auscultate. No rhonchi or wheezing heard - Cardiovascular Rhythm: regular Heart sounds: normal: S1, S2 Abnormal Heart Sounds: no systolic murmur, no diastolic murmur, no rub, no S3 Gallop, no S4 Gallop - Gastrointestinal General gastrointestinal: normal bowel sounds, soft - Integumentary Integumentary: no rash - Neurologic Neurologic: CNII-XII intact - Musculoskeletal Musculoskeletal: gait normal, strength equal bilaterally - Psychiatric Psychiatric: A&O x's 3, appropriate affect - Labs CBC & Chem 7: 03/07/18 05:45 03/07/18 05:45 Labs: Abnormal Lab Results - Last 24 Hours (Table) 03/06/18 03/06/18 03/06/18 Range/Units 08:22 08:22 08:22 RBC 3.59 L (3.80-5.40) m/uL Hgb 10.3 L (11.4-16.0) gm/dL Hct 32.4 L (34.0-46.0) % RDW 16.0 H (11.5-15.5) % Neutrophils # (1.3-7.7) k/uL Lymphocytes # (1.0-4.8) k/uL PT 22.2 H (9.0-12.0) sec INR 2.5 H (<1.2) APTT 30.1 H (22.0-30.0) sec D-Dimer 4.28 H (<0.60) mg/L FEU Sodium 135 L (137-145) mmol/L Carbon Dioxide 20 L (22-30) mmol/L BUN 46 H (7-17) mg/dL Creatinine 1.60 H (0.52-1.04) mg/dL Glucose 110 H (74-99) mg/dL POC Glucose (mg/dL) (75-99) mg/dL Total Bilirubin 2.1 H (0.2-1.3) mg/dL AST 1448 H (14-36) U/L ALT 1090 H (9-52) U/L Alkaline Phosphatase 170 H (38-126) U/L Total Protein 6.2 L (6.3-8.2) g/dL Albumin 3.3 L (3.5-5.0) g/dL 03/06/18 03/06/1818 Range/Units 17:27 21:43 00:16 RBC (3.80-5.40) m/uL Hgb (11.4-16.0) gm/dL Hct (34.0-46.0) % RDW (11.5-15.5) % Neutrophils # (1.3-7.7) k/uL Lymphocytes # (1.0-4.8) k/uL PT (9.0-12.0) sec INR (<1.2) APTT (22.0-30.0) sec D-Dimer (<0.60) mg/L FEU Sodium (137-145) mmol/L Carbon Dioxide (22-30) mmol/L BUN (7-17) mg/dL Creatinine (0.52-1.04) mg/dL Glucose (74-99) mg/dL POC Glucose (mg/dL) 158 H 148 H 146 H (75-99) mg/dL Total Bilirubin (0.2-1.3) mg/dL AST (14-36) U/L ALT (9-52) U/L Alkaline Phosphatase (38-126) U/L Total Protein (6.3-8.2) g/dL Albumin (3.5-5.0) g/dL 03/07/18 03/07/18 03/07/18 Range/Units 05:45 05:45 06:08 RBC 3.41 L (3.80-5.40) m/uL Hgb 9.7 L (11.4-16.0) gm/dL Hct 30.9 L (34.0-46.0) % RDW 16.3 H (11.5-15.5) % Neutrophils # 7.9 H (1.3-7.7) k/uL Lymphocytes # 0.6 L (1.0-4.8) k/uL PT (9.0-12.0) sec INR (<1.2) APTT (22.0-30.0) sec D-Dimer (<0.60) mg/L FEU Sodium 134 L (137-145) mmol/L Carbon Dioxide 12 L (22-30) mmol/L BUN 56 H (7-17) mg/dL Creatinine 2.26 H (0.52-1.04) mg/dL Glucose 123 H (74-99) mg/dL POC Glucose (mg/dL) 155 H (75-99) mg/dL Total Bilirubin 3.0 H (0.2-1.3) mg/dL AST >750 H (14-36) U/L ALT >1000 H (9-52) U/L Alkaline Phosphatase 153 H (38-126) U/L Total Protein 6.1 L (6.3-8.2) g/dL Albumin 3.3 L (3.5-5.0) g/dL Assessment and Plan Plan: #1 acute on chronic hypoxic respiratory failure secondary to acute on chronic systolic heart failure, pulmonary edema, intermediate for pulmonary embolism, mild intermittent asthma without exacerbation. Decrease Lasix to 40 mg IV daily , continue Solu-Medrol 40 every 8 hr, monitor input and output and daily weight. Continue DuoNeb as needed for shortness of breath. His condition unlikely to be secondary to pneumonia as consolidation seemed though patient is producing phlegm. Pro-calcitonin ordered. Pulmonary consult #2 acute kidney injury over CKD3. Hold IV fluids continue Lasix 40 IV every 8 repeat CMP tomorrow if current creatinine continues to be elevated will consider fluid bolus #3 acute transaminitis with increase in alkaline phosphatase. Ultrasound abdomen reveals acute on chronic cholecystitis. Hepatic congestion likely secondary to CHF #4 acute on chronic systolic heart failure with known ejection fraction noted to be 30-35% in January 2018, status post AICD which was interrogated in January 2018. Repeat echocardiogram has been obtained and report is pending. Continue IV Lasix. Cardiology consult appreciated. #5 history of mild intermittent avoid Zofran asthma, no documented history of COPD. Chest x-ray suggests COPD pulmonary consult placed #6. Paroxysmal Atrial fibrillation on xarelto rate controlled currently in sinus rhythm. #7 QT prolongation watch for QT prolongation medication avoid Zofran, levofloxacin and other, and QT prolonging medications . #8 hematemesis versus hemoptysis appears chronic. Continue Protonix V/Q scan ordered to rule out PE #9 recurrent depression continue citalopram 40 mg by mouth daily at bedtime #10 gout stable continue allopurinol #11 generalized anxiety disorder continue Xanax 0.5 daily 1 mg at bedtime #12 DVT prophylaxis patient on xarelto #13 GI prophylaxis with Protonix CODE STATUS full code Discharge plan: To be determined Impression and plan of care have been directed as dictated by the signing physician. Nancy Olivera nurse practitioner acting as scribe for signing physician.
[2018-03-07 12:00] LABS: Glucose,Whole Blood 120 mg/dL (75-99)
[2018-03-07] MEDS: SODIUM CHLORIDE 0.9% 1,000 ML IV SCH (12:13)
--- NOTE | 2018-03-07 12:31 | ECHOF ---
Referral Reason:chf MEASUREMENTS -------- HEIGHT: 165.1 cm WEIGHT: 78.9 kg BP: RVIDd: 2.7 cm (< 3.3) IVSd: 1.0 cm (0.6 - 1.1) LVIDd: 6.0 cm (3.9 - 5.3) LVPWd: 1.2 cm (0.6 - 1.1) IVSs: 1.3 cm LVIDs: 6.0 cm LVPWs: 1.3 cm LAESV Index (A-L): 50.52 ml/m Ao Diam: 3.1 cm (2.0 - 3.7) AV Cusp: 2.3 cm (1.5 - 2.6) LA Diam: 5.4 cm (2.7 - 3.8) MV EXCURSION: 9.371 mm (> 18.000) MV EF SLOPE: 62 mm/s (70 - 150) EPSS: 1.8 cm MV E Gregory: 1.63 m/s MV DecT: 207 ms MV A Gregory: 0.38 m/s MV E/A Ratio: 4.25 AR PHT: 432 ms RAP: 20.00 mmHg RVSP: 76.14 mmHg FINDINGS -------- Resting tachycardia (HR>100bpm). Pacerwire seen in RV and RA. This was a technically adequate study. The left ventricle is moderately dilated. There is severe global hypokinesis of LV . Overall left ventricular systolic function is severely impaired with, an EF between 20 - 25 %. The right ventricle is normal in size and function. LA is severely dilated >40 ml/m2 RA appears enlarged. Aortic valve is trileaflet and is mildly thickened. There is mild aortic regurgitation. Mild mitral annular calcification present. Severe mitral regurgitation is present. Severe tricuspid regurgitation present. There is severe pulmonary hypertension. The right ventric ular systolic pressure, as measured by Doppler, is 76.14mmHg. There is no pulmonic regurgitation present. The aortic root size is normal. The inferior vena cava is dilated with no significant inspiratory collapse which is consistent estima po right atrial pressure of >20 mmHg. There is a small, generalized pericardial effusion present. CONCLUSIONS -------- 1. Resting tachycardia (HR>100bpm). 2. Pacerwire seen in RV and RA. 3. This was a technically adequate study. 4. The left ventricle is moderately dilated. 5. There is severe global hypokinesis of LV . 6. Overall left ventricular systolic function is severely impaired with, an EF between 20 - 25 %. 7. The right ventricle is normal in size and function. 8. LA is severely dilated >40 ml/m2 9. RA appears enlarged. 10. Aortic valve is trileaflet and is mildly thickened. 11. There is mild aortic regurgitation. 12. Mild mitral annular calcification present. 13. Severe mitral regurgitation is present. 14. Severe tricuspid regurgitation present. 15. There is severe pulmonary hypertension. 16. There is no pulmonic regurgitation present. 17. The aortic root size is normal. 18. The inferior vena cava is dilated with no significant inspiratory collapse which is consistent es timated right atrial pressure of >20 mmHg. 19. There is a small, generalized pericardial effusion present. SEO ASSOCIATE: Denae Shook RDCS
--- NOTE | 2018-03-07 16:42 | P.CNPUL ---
History of Present Illness Consult date: 03/07/18 Reason for consult: dyspnea, cough, abnormal CXR/CT Chief complaint: shortness of breath, cough with phlegm production History of present illness: This is 72-year-old white female patient of Dr. Crowell, who presented to the emergency department when 03/06/2018 were evaluation of shortness of breath , cough with yellow sputum production. Patient denied any fever or chills, denied any chest pain. Past medical history is positive for hypertension, ischemic cardiomyopathy status post AICD placement with EF of 30-35%, atrial fibrillation, congestive heart failure, anxiety, depression, carotid stenosis, GERD, and previous episodes of pneumonia. Patient was recently hospitalized in February, for bilateral lower lobe pneumonia, in addition to a CHF exacerbation. She did require admission to the intensive care unit, she was treated with accommodation of Zosyn and vancomycin. She improved, was discharged home. On arrival to the emergency department patient was significantly dyspneic, she was given breathing treatments. Reports difficulty breathing with exertion, and some orthopnea. She was also complaining of right shoulder pain, denies any falls or trauma. She reports dry cough, no peripheral swelling. Significant weight gain. X-ray was completed in the emergency department and showed cardiomegaly and COPD. EKG showed normal sinus rhythm without acute ST/T-wave abnormalities. Lab work was done, and was negative for any evidence of leukocytosis, WBC is 8.9, hemoglobin is 10.3, INR was 2.5, d-dimer was elevated to 4.28, sodium is 135, B1 is 40, creatinine is 1.6. Patient's AST was 1448, and ALT was 1090, and with alkaline phosphatase at 170. ProBNP was 18,300, and troponins were 0.027, 0.024, 0.034. VQ scan was obtained, which showed intermediate probability of pulmonary embolism, chest x-ray on 03/06/2018 showed congestive heart failure. Patient is normally on home oxygen at 2 L per nasal cannula. She is a history of smoking, she quit smoking in 1997, prior to that smoked a pack a day for 20 years. She denies any history of COPD. She was supposed to see Dr. Lang in follow-up in the office this week. Patient was started on IV diuretics, she did receive IV Solu- Medrol, nebulized bronchodilators and empiric antibiotics.. She is diuresing. On today's exam, she is feeling better, breathing easier. No wheezing, no significant coughing, chest congestion or sputum production. Remains afebrile, denies any chest pain, worsening shortness of breath. Review of Systems All systems: negative Constitutional: Denies chills, Denies fever Eyes: denies blurred vision, denies pain Ears, nose, mouth and throat: Denies headache, Denies sore throat Cardiovascular: Reports dyspnea on exertion, Denies chest pain, Denies shortness of breath Respiratory: Reports dyspnea, Reports home oxygen, Reports respiratory infections, Denies cough Gastrointestinal: Denies abdominal pain, Denies diarrhea, Denies nausea, Denies vomiting Genitourinary: Denies dysuria, Denies hematuria Musculoskeletal: Denies myalgias Integumentary: Denies pruritus, Denies rash Neurological: Denies numbness, Denies weakness Psychiatric: Denies anxiety, Denies depression Endocrine: Denies fatigue, Denies weight change Past Medical History Past Medical History: Atrial Fibrillation, Cancer, Heart Failure, GERD/Reflux, Pneumonia, Syncope Additional Past Medical History / Comment(s): CHF and the patient has an AICD in place, chronic atrial fibrillation, acid reflux, previous history of melanoma involving the nose that has been resected, hypoxic respiratory failure patient claims to use oxygen overnight at 2 L, previous history of endocarditis stenosis, gout, history of falls, history of urine checked infection with E. coli and this was an ESBL producing organism back in June 2016, chronic anxiety History of Any Multi-Drug Resistant Organisms: ESBL Date of last positivie culture/infection: 06/27/16 ESBL-E.coli MDRO Source:: Urine Past Surgical History: AICD, Hysterectomy, Pacemaker, Tubal Ligation Additional Past Surgical History / Comment(s): LT CAROTID ENDARTERECTOMY,AICD- [facility] [place] [facility] [place] 10/02/14 TO CHECK AICD Past Anesthesia/Blood Transfusion Reactions: Motion Sickness Additional Past Anesthesia/Blood Transfusion Reaction / Comment(s): clausterphobia Type of Cardiac Device: Permanent Pacemaker, AICD Device Placement Date:: per pt 05/04/16 Past Psychological History: No Psychological Hx Reported Smoking Status: Former smoker - Past Family History Father Additional Family Medical History / Comment(s): Father from old age. Daughter(s) Additional Family Medical History / Comment(s): Patient has 2 adult children with no major medical problems. Mother Family Medical History: CVA/TIA Additional Family Medical History / Comment(s): Mother from old age. Medications and Allergies Home Medications Medication Instructions Recorded Confirmed Type Citalopram Hydrobromide [CeleXA] 40 mg PO HS@2100 07/16/14 03/06/18 History Ranitidine HCl [Zantac] 150 mg PO BID 06/27/16 03/06/18 History Rivaroxaban [Xarelto] 20 mg PO DAILY 06/27/16 03/06/18 History Aspirin EC [Ecotrin Low Dose] 81 mg PO DAILY 08/23/17 03/06/18 History Potassium Chloride ER [K-Dur 20] 40 meq PO DAILY 08/23/17 03/06/18 History Sennosides-Docusate Sodium 1 tab PO BID 08/23/17 03/06/18 History [Senokot-S] Spironolactone 50 mg PO DAILY 08/23/17 03/06/18 History Torsemide [Demadex] 80 mg PO DAILY 08/23/17 03/06/18 History ALPRAZolam [Xanax] 2 mg PO HS PRN 01/12/18 03/06/18 History Allopurinol [Zyloprim] 100 mg PO DAILY 01/12/18 03/06/18 History Metoprolol Succinate (ER) [Toprol 25 mg PO DAILY #30 tab.er.24h 01/13/18 Rx XL] Allergies Allergy/AdvReac Type Severity Reaction Status Date / Time cephalexin monohydrate Allergy Rash/Hives Verified 03/06/18 11:43 [From Keflex] levofloxacin [From Levaquin] Allergy Rash/Hives Verified 03/06/18 11:43 lisinopril Allergy Rash/Hives Verified 03/06/18 11:43 morphine Allergy Rash/Hives/ Verified 03/06/18 11:43 Sob warfarin [From Coumadin] Allergy Rash/Hives Verified 03/06/18 11:43 codeine AdvReac Nausea & Verified 03/06/18 11:43 Vomiting hydrocodone [From [place]] AdvReac Nausea & Verified 03/06/18 11:43 Vomiting ketorolac [From Toradol] AdvReac Dyspnea Verified 03/06/18 11:43 Physical Exam Vitals: Vital Signs Temp Pulse Pulse Resp BP Pulse Ox 03/07/18 13:05 100 03/07/18 12:48 100 03/07/18 12:00 106 H 18 104/68 96 03/07/18 09:12 100 03/07/18 09:02 96 93 L 03/07/18 08:00 96.8 F L 116 H 19 124/74 100 03/07/18 04:53 106 H 03/07/18 04:34 108 H 03/07/18 04:13 96.8 F L 114 H 16 118/74 94 L 03/06/18 23:59 108 H 03/06/18 23:50 104 H 03/06/18 23:41 97.7 F 114 H 18 116/68 93 L 03/06/18 21:11 98 03/06/18 20:56 100 95 03/06/18 20:43 97.0 F L 107 H 21 107/74 93 L Intake and Output 03/07/18 03/07/18 03/07/18 06:59 14:59 22:59 Intake Total 50 120 Balance 50 120 Intake: Intake, IV Titration 50 Amount Piperacillin-Tazobactam 3 50 .375 gm In Dextrose/Water 1 50ml.bag @ 12.5 mls/hr IVPB Q[facility]H [facility] Rx#: [id number] Oral 120 Other: Voiding Method Toilet # Voids 1 1 Weight 79.2 kg 79.2 kg GENERAL EXAM: Alert, pleasant 72-year-old white female, comfortable in no apparent distress. HEAD: Normocephalic/atraumatic. EYES: Normal reaction of pupils, equal size. Conjunctiva pink, sclera white. NOSE: Clear with pink turbinates. THROAT: No erythema or exudates. NECK: No masses, no JVD, no thyroid enlargement, no adenopathy. CHEST: No chest wall deformity. Symmetrical expansion. LUNGS: Equal air entry with bibasilar crackles, but no wheeze, rhonchi or dullness. CVS: Regular rate and rhythm, normal S1 and S2, no gallops, no murmurs, no rubs ABDOMEN: Soft, nontender. No hepatosplenomegaly, normal bowel sounds, no guarding or rigidity. EXTREMITIES: No clubbing, no edema, no cyanosis, 2+ pulses and upper and lower extremities. MUSCULOSKELETAL: Muscle strength and tone normal. SPINE: No scoliosis or deformity SKIN: No rashes CENTRAL NERVOUS SYSTEM: Alert and oriented -3. No focal deficits, tone is normal in all 4 extremities. PSYCHIATRIC: Alert and oriented -3. Appropriate affect. Intact judgment and insight. Results - Laboratory Findings CBC and BMP: 03/07/18 05:45 03/07/18 05:45 PT/INR, D-dimer PT 22.2 sec (9.0-12.0) H 03/06/18 08:22 INR 2.5 (<1.2) H 03/06/18 08:22 D-Dimer 4.28 mg/L FEU (<0.60) H 03/06/18 08:22 Abnormal lab findings: Abnormal Labs 03/06/18 03/06/18 03/06/18 08:22 08:22 08:22 RBC 3.59 L Hgb 10.3 L Hct 32.4 L RDW 16.0 H Neutrophils # Lymphocytes # PT 22.2 H INR 2.5 H APTT 30.1 H D-Dimer 4.28 H Sodium 135 L Carbon Dioxide 20 L BUN 46 H Creatinine 1.60 H Glucose 110 H POC Glucose (mg/dL) Iron Iron Saturation Total Bilirubin 2.1 H AST 1448 H ALT 1090 H Alkaline Phosphatase 170 H Total Protein 6.2 L Albumin 3.3 L Procalcitonin 03/06/18 03/06/18 03/06/18 08:22 15:36 17:27 RBC Hgb Hct RDW Neutrophils # Lymphocytes # PT INR APTT D-Dimer Sodium Carbon Dioxide BUN Creatinine Glucose POC Glucose (mg/dL) 158 H Iron 15 L Iron Saturation 5.32 L Total Bilirubin AST ALT Alkaline Phosphatase Total Protein Albumin Procalcitonin 0.20 H 03/06/18 03/07/18 03/07/18 21:43 00:16 05:45 RBC 3.41 L Hgb 9.7 L Hct 30.9 L RDW 16.3 H Neutrophils # 7.9 H Lymphocytes # 0.6 L PT INR APTT D-Dimer Sodium Carbon Dioxide BUN Creatinine Glucose POC Glucose (mg/dL) 148 H 146 H Iron Iron Saturation Total Bilirubin AST ALT Alkaline Phosphatase Total Protein Albumin Procalcitonin 03/07/18 03/07/18 03/07/18 05:45 06:08 11:51 RBC Hgb Hct RDW Neutrophils # Lymphocytes # PT INR APTT D-Dimer Sodium 134 L Carbon Dioxide 12 L BUN 56 H Creatinine 2.26 H Glucose 123 H POC Glucose (mg/dL) 155 H 120 H Iron Iron Saturation Total Bilirubin 3.0 H AST >750 H ALT >1000 H Alkaline Phosphatase 153 H Total Protein 6.1 L Albumin 3.3 L Procalcitonin - Diagnostic Findings Chest x-ray: report reviewed, image reviewed Additional studies: EKG reviewed echocardiogram results reviewed, VQ scan results reviewed Assessment and Plan Plan: Assessment: #1. Acute on chronic congestive heart failure, with systolic dysfunction #2. Ischemic cardiomyopathy, status post AICD #3. Shortness of breath, orthopnea, cough, additional dyspnea related to the above #4. Recent episode of bilateral lower lobe pneumonia, patient was treated with Zosyn and vancomycin, improved. Chest x-ray this admission not show any evidence of pneumonia #5. Elevated transaminitis likely related to CHF #6 Acute kidney injury #7. Paroxysmal atrial fibrillation, on Xarelto currently in sinus rhythm #8. Nicotine dependence, in remission, patient quit in 1997, prior to that smoked for 20 years 1 pack a day #9. Anxiety/depression #10. Melanoma resected #11. Gout #12. History of carotid artery disease, status post left carotid endarterectomy Plan: We'll discontinue Zosyn, patient does not seem to be infected, no chest congestion, no fever, no leukocytosis. We will discontinue the IV steroids. Continue diuresis per cardiology. Echocardiogram results were noted. Patient had further worsening of his renal function. She has been transitioned to oral diuretics. She does not seem to be in COPD exacerbation. She has yet to to have her pulmonary function evaluated in the outpatient setting. Her symptoms are likely due to acute exacerbation of systolic congestive heart failure. We' ll continue to follow I performed a history & physical examination of the patient and discussed their management with my nurse practitioner, Babs Frost. I reviewed the nurse practitioner's note and agree with the documented findings and plan of care. Lung sounds are positive diminished, with bibasilar crackles. The findings and the impression was discussed with the patient. I attest to the documentation by the nurse practitioner. Time with Patient: Greater than 30
[2018-03-07 16:59] LABS: Glucose,Whole Blood 158 mg/dL (75-99)
--- NOTE | 2018-03-07 18:10 | P.GSCN ---
History of Present Illness Consult date: 03/07/18 Reason for Consult: Cholecystitis History of present illness: 72-year-old female brought to the hospital with complaints of shortness of breath. She has had cough and sputum production as well. Some reddish discoloration. Chest x-ray showed cardiomegaly and CHF. Patient on Xarelto for atrial fibrillation. Patient also having complaints of abdominal bloating and right-sided shoulder pain. The patient states her right shoulder pain has been going on for the last 2-3 weeks. It is increased with movement of the shoulder and it is tender to touch she states. She apparently was having some right upper quadrant tenderness. She denied right upper quadrant pain however stating that she was having abdominal bloating. Ultrasound was ordered which showed gallstones and a thickened gallbladder wall with some pericholecystic fluid. Liver enzymes are significantly elevated and have increased it appears during this hospitalization. Patient currently being treated for atrophic fibrillation with rapid ventricular response. Hepatitis panel negative thus far. GI consult pending. Review of Systems The patient denies any acute changes in vision or hearing, no dysphagia or odynophagia, no dysuria or hematuria, no headache, no runny nose, no rectal bleeding or melena, no unexplained weight loss Past Medical History Past Medical History: Atrial Fibrillation, Cancer, Heart Failure, GERD/Reflux, Pneumonia, Syncope Additional Past Medical History / Comment(s): CHF and the patient has an AICD in place, chronic atrial fibrillation, acid reflux, previous history of melanoma involving the nose that has been resected, hypoxic respiratory failure patient claims to use oxygen overnight at 2 L, previous history of endocarditis stenosis, gout, history of falls, history of urine checked infection with E. coli and this was an ESBL producing organism back in June 2016, chronic anxiety History of Any Multi-Drug Resistant Organisms: ESBL Year Discovered:: 06/27/16 ESBL-E.coli MDRO Source:: Urine Past Surgical History: AICD, Hysterectomy, Pacemaker, Tubal Ligation Additional Past Surgical History / Comment(s): LT CAROTID ENDARTERECTOMY,AICD- [facility] [place] 10/02/14 TO CHECK AICD Past Anesthesia/Blood Transfusion Reactions: Motion Sickness Additional Past Anesthesia/Blood Transfusion Reaction / Comm: clausterphobia Type of Cardiac Device: Permanent Pacemaker, AICD Device Placement Date:: per pt 05/04/16 Past Psychological History: No Psychological Hx Reported Smoking Status: Former smoker - Past Family History Father Additional Family Medical History / Comment(s): Father from old age. Daughter(s) Additional Family Medical History / Comment(s): Patient has 2 adult children with no major medical problems. Mother Family Medical History: CVA/TIA Additional Family Medical History / Comment(s): Mother from old age. Medications and Allergies Home Medications Medication Instructions Recorded Confirmed Type Citalopram Hydrobromide [CeleXA] 40 mg PO HS@2100 07/16/14 03/06/18 History Ranitidine HCl [Zantac] 150 mg PO BID 06/27/16 03/06/18 History Rivaroxaban [Xarelto] 20 mg PO DAILY 06/27/16 03/06/18 History Aspirin EC [Ecotrin Low Dose] 81 mg PO DAILY 08/23/17 03/06/18 History Potassium Chloride ER [K-Dur 20] 40 meq PO DAILY 08/23/17 03/06/18 History Sennosides-Docusate Sodium 1 tab PO BID 08/23/17 03/06/18 History [Senokot-S] Spironolactone 50 mg PO DAILY 08/23/17 03/06/18 History Torsemide [Demadex] 80 mg PO DAILY 08/23/17 03/06/18 History ALPRAZolam [Xanax] 2 mg PO HS PRN 01/12/18 03/06/18 History Allopurinol [Zyloprim] 100 mg PO DAILY 01/12/18 03/06/18 History Metoprolol Succinate (ER) [Toprol 25 mg PO DAILY #30 tab.er.24h 01/13/18 Rx XL] Allergies Allergy/AdvReac Type Severity Reaction Status Date / Time cephalexin monohydrate Allergy Rash/Hives Verified 03/06/18 11:43 [From Keflex] levofloxacin [From Levaquin] Allergy Rash/Hives Verified 03/06/18 11:43 lisinopril Allergy Rash/Hives Verified 03/06/18 11:43 morphine Allergy Rash/Hives/ Verified 03/06/18 11:43 Sob warfarin [From Coumadin] Allergy Rash/Hives Verified 03/06/18 11:43 codeine AdvReac Nausea & Verified 03/06/18 11:43 Vomiting hydrocodone [From [place]] AdvReac Nausea & Verified 03/06/18 11:43 Vomiting ketorolac [From Toradol] AdvReac Dyspnea Verified 03/06/18 11:43 Surgical - Exam Vital Signs Temp Pulse Resp BP Pulse Ox 98.5 F 101 H 18 106/80 92 L 03/06/18 07:44 03/06/18 07:44 03/06/18 07:44 03/06/18 07:44 03/06/18 07:44 Physical exam: General: Well-developed, well-nourished HEENT: Normocephalic, sclerae nonicteric Abdomen: Mild distention, mild right upper quadrant tenderness Extremities: Lower extremity edema Neuro: Alert and oriented Results - Labs 03/07/18 05:45 03/07/18 05:45 Abnormal Lab Results - Last 24 Hours (Table) 03/06/18 03/06/18 03/06/18 Range/Units 08:22 15:36 21:43 RBC (3.80-5.40) m/uL Hgb (11.4-16.0) gm/dL Hct (34.0-46.0) % RDW (11.5-15.5) % Neutrophils # (1.3-7.7) k/uL Lymphocytes # (1.0-4.8) k/uL Sodium (137-145) mmol/L Carbon Dioxide (22-30) mmol/L BUN (7-17) mg/dL Creatinine (0.52-1.04) mg/dL Glucose (74-99) mg/dL POC Glucose (mg/dL) 148 H (75-99) mg/dL Iron 15 L (50-170) ug/dL Iron Saturation 5.32 L (12.00-45.00) Total Bilirubin (0.2-1.3) mg/dL AST (14-36) U/L ALT (9-52) U/L Alkaline Phosphatase (38-126) U/L Total Protein (6.3-8.2) g/dL Albumin (3.5-5.0) g/dL Procalcitonin 0.20 H (0.02-0.09) ng/mL 03/07/18 03/07/18 03/07/18 Range/Units 00:16 05:45 05:45 RBC 3.41 L (3.80-5.40) m/uL Hgb 9.7 L (11.4-16.0) gm/dL Hct 30.9 L (34.0-46.0) % RDW 16.3 H (11.5-15.5) % Neutrophils # 7.9 H (1.3-7.7) k/uL Lymphocytes # 0.6 L (1.0-4.8) k/uL Sodium 134 L (137-145) mmol/L Carbon Dioxide 12 L (22-30) mmol/L BUN 56 H (7-17) mg/dL Creatinine 2.26 H (0.52-1.04) mg/dL Glucose 123 H (74-99) mg/dL POC Glucose (mg/dL) 146 H (75-99) mg/dL Iron (50-170) ug/dL Iron Saturation (12.00-45.00) Total Bilirubin 3.0 H (0.2-1.3) mg/dL AST >750 H (14-36) U/L ALT >1000 H (9-52) U/L Alkaline Phosphatase 153 H (38-126) U/L Total Protein 6.1 L (6.3-8.2) g/dL Albumin 3.3 L (3.5-5.0) g/dL Procalcitonin (0.02-0.09) ng/mL 03/07/18 03/07/18 03/07/18 Range/Units 06:08 11:51 16:53 RBC (3.80-5.40) m/uL Hgb (11.4-16.0) gm/dL Hct (34.0-46.0) % RDW (11.5-15.5) % Neutrophils # (1.3-7.7) k/uL Lymphocytes # (1.0-4.8) k/uL Sodium (137-145) mmol/L Carbon Dioxide (22-30) mmol/L BUN (7-17) mg/dL Creatinine (0.52-1.04) mg/dL Glucose (74-99) mg/dL POC Glucose (mg/dL) 155 H 120 H 158 H (75-99) mg/dL Iron (50-170) ug/dL Iron Saturation (12.00-45.00) Total Bilirubin (0.2-1.3) mg/dL AST (14-36) U/L ALT (9-52) U/L Alkaline Phosphatase (38-126) U/L Total Protein (6.3-8.2) g/dL Albumin (3.5-5.0) g/dL Procalcitonin (0.02-0.09) ng/mL Microbiology - Last 24 Hours (Table) 03/06/18 08:22 Blood Culture - Preliminary Blood No Growth after 24 hours Diabetes panel 03/07/18 Range/Units 05:45 Sodium 134 L (137-145) mmol/L Potassium 4.4 (3.5-5.1) mmol/L Chloride 98 (98-107) mmol/L Carbon Dioxide 12 L (22-30) mmol/L BUN 56 H (7-17) mg/dL Creatinine 2.26 H (0.52-1.04) mg/dL Glucose 123 H (74-99) mg/dL Calcium 9.1 (8.4-10.2) mg/dL AST >750 H (14-36) U/L ALT >1000 H (9-52) U/L Alkaline Phosphatase 153 H (38-126) U/L Total Protein 6.1 L (6.3-8.2) g/dL Albumin 3.3 L (3.5-5.0) g/dL Calcium panel 03/07/18 Range/Units 05:45 Calcium 9.1 (8.4-10.2) mg/dL Albumin 3.3 L (3.5-5.0) g/dL Pituitary panel 03/07/18 Range/Units 05:45 Sodium 134 L (137-145) mmol/L Potassium 4.4 (3.5-5.1) mmol/L Chloride 98 (98-107) mmol/L Carbon Dioxide 12 L (22-30) mmol/L BUN 56 H (7-17) mg/dL Creatinine 2.26 H (0.52-1.04) mg/dL Glucose 123 H (74-99) mg/dL Calcium 9.1 (8.4-10.2) mg/dL Adrenal panel 03/07/18 Range/Units 05:45 Sodium 134 L (137-145) mmol/L Potassium 4.4 (3.5-5.1) mmol/L Chloride 98 (98-107) mmol/L Carbon Dioxide 12 L (22-30) mmol/L BUN 56 H (7-17) mg/dL Creatinine 2.26 H (0.52-1.04) mg/dL Glucose 123 H (74-99) mg/dL Calcium 9.1 (8.4-10.2) mg/dL Total Bilirubin 3.0 H (0.2-1.3) mg/dL AST >750 H (14-36) U/L ALT >1000 H (9-52) U/L Alkaline Phosphatase 153 H (38-126) U/L Total Protein 6.1 L (6.3-8.2) g/dL Albumin 3.3 L (3.5-5.0) g/dL Assessment and Plan (1) Cholecystitis Narrative/Plan: Patient's liver enzyme elevation profile suggest acute hepatic insult rather than choledocholithiasis/cholecystitis at this time. Continue cardiac and pulmonary workup. Await GI evaluation. We'll follow closely with you. Current Visit: Yes Status: Acute Code(s): K81.9 - CHOLECYSTITIS, UNSPECIFIED SNOMED Code(s): 85841404
[2018-03-07] MEDS ORDERED: METOPROLOL TARTRATE 5 MG/5 ML VIAL IVP STA (18:16)
[2018-03-07] MEDS ORDERED: DEXTROSE 5% IN WATER 100 ML with AMIODARONE 150 MG IV ONE (18:29)
[2018-03-07] MEDS ORDERED: MAGNESIUM SULFATE-D5W PMX 1 GM in DEXTROSE/WATER 1 100ML.BAG IVPB ONE (18:30)
[2018-03-07] MEDS: AMIODARONE 450 MG in DEXTROSE 5% IN WATER 250 ML IV SCH ×2 (18:55)
[2018-03-07] MEDS: CITALOPRAM HYDROBROMIDE 20 MG TAB PO SCH (20:25)
[2018-03-07 20:50] LABS: Glucose,Whole Blood 161 mg/dL (75-99)
--- NOTE | 2018-03-07 20:50 | P.CONS ---
History of Present Illness - Reason for Consult Consult date: 03/07/18 Elevated liver enzymes Requesting physician: Keisha Thornton - Chief Complaint Cough, sputum production - History of Present Illness The patient is a 72-year-old female with a history of atrial fibrillation, congestive heart failure, GERD, melanoma status post resection, gout, nonischemic cardiomyopathy with prior stent placement and COPD who presents with cough and sputum production. The patient reports 2 weeks of cough, sputum production and nonbloody phlegm since being discharged from the hospital. She denies any change in bowel habits. She reports dry heaving in association with her cough but denies any vomiting or hematemesis. On presentation to the hospital the patient was found to have elevated liver enzymes with a total bilirubin of 2.1 which trended to 3.0, alkaline phosphatase 170-153, AST 1448- 750 and ALT 1090 to 1000. The patient denies any prior history of liver disease , hepatitis, blood transfusions prior to 1991, IV drug use, tattoos or other high risk behavior. The patient had a ultrasound on presentation which showed a normal common bile duct with a positive Farias's and acute and chronic cholecystitis with tiny gallstones. The patient had a nuclear medicine perfusion study which was suggestive of intermediate pulmonary embolism and congestive heart failure. Currently lying in bed she is denying any abdominal pain. She reports prior colonoscopy significant for polypectomy. Review of Systems REVIEW OF SYSTEMS: CARDIO: Denies any chest pain or palpitations. PULMONARY: Reports shortness of breath, sputum production and cough. GENITOURINARY: No dysuria or hematuria. MUSCULOSKELETAL: No weakness reported. SKIN: Denies any new rashes or lesions, jaundice or pallor. PSYCHIATRIC: Denies any depression or anxiety. NEUROLOGY: Denies headache, denies any new focal deficits. EARS: No tinnitus, discharge or new hearing loss. NOSE: No discharge or congestion. EYES: No pain in eyes or change in vision. CONSTITUTIONAL: No recent weight loss. No fever, chills, night sweats. Past Medical History Past Medical History: Atrial Fibrillation, Cancer, Heart Failure, GERD/Reflux, Pneumonia, Syncope Additional Past Medical History / Comment(s): CHF and the patient has an AICD in place, chronic atrial fibrillation, acid reflux, previous history of melanoma involving the nose that has been resected, hypoxic respiratory failure patient claims to use oxygen overnight at 2 L, previous history of endocarditis stenosis, gout, history of falls, history of urine checked infection with E. coli and this was an ESBL producing organism back in June 2016, chronic anxiety History of Any Multi-Drug Resistant Organisms: ESBL Year Discovered:: 06/27/16 ESBL-E.coli MDRO Source:: Urine Past Surgical History: AICD, Hysterectomy, Pacemaker, Tubal Ligation Additional Past Surgical History / Comment(s): LT CAROTID ENDARTERECTOMY,AICD- [facility] [place] 10/02/14 TO CHECK AICD Past Anesthesia/Blood Transfusion Reactions: Motion Sickness Additional Past Anesthesia/Blood Transfusion Reaction / Comm: clausterphobia Type of Cardiac Device: Permanent Pacemaker, AICD Device Placement Date:: per pt 05/04/16 Past Psychological History: No Psychological Hx Reported Smoking Status: Former smoker - Past Family History Father Additional Family Medical History / Comment(s): Father from old age. Daughter(s) Additional Family Medical History / Comment(s): Patient has 2 adult children with no major medical problems. Mother Family Medical History: CVA/TIA Additional Family Medical History / Comment(s): Mother from old age. Medications and Allergies Home Medications Medication Instructions Recorded Confirmed Type Citalopram Hydrobromide [CeleXA] 40 mg PO HS@2100 07/16/14 03/06/18 History Ranitidine HCl [Zantac] 150 mg PO BID 06/27/16 03/06/18 History Rivaroxaban [Xarelto] 20 mg PO DAILY 06/27/16 03/06/18 History Aspirin EC [Ecotrin Low Dose] 81 mg PO DAILY 08/23/17 03/06/18 History Potassium Chloride ER [K-Dur 20] 40 meq PO DAILY 08/23/17 03/06/18 History Sennosides-Docusate Sodium 1 tab PO BID 08/23/17 03/06/18 History [Senokot-S] Spironolactone 50 mg PO DAILY 08/23/17 03/06/18 History Torsemide [Demadex] 80 mg PO DAILY 08/23/17 03/06/18 History ALPRAZolam [Xanax] 2 mg PO HS PRN 01/12/18 03/06/18 History Allopurinol [Zyloprim] 100 mg PO DAILY 01/12/18 03/06/18 History Metoprolol Succinate (ER) [Toprol 25 mg PO DAILY #30 tab.er.24h 01/13/18 Rx XL] Allergies Allergy/AdvReac Type Severity Reaction Status Date / Time cephalexin monohydrate Allergy Rash/Hives Verified 03/06/18 11:43 [From Keflex] levofloxacin [From Levaquin] Allergy Rash/Hives Verified 03/06/18 11:43 lisinopril Allergy Rash/Hives Verified 03/06/18 11:43 morphine Allergy Rash/Hives/ Verified 03/06/18 11:43 Sob warfarin [From Coumadin] Allergy Rash/Hives Verified 03/06/18 11:43 codeine AdvReac Nausea & Verified 03/06/18 11:43 Vomiting hydrocodone [From Dyer] AdvReac Nausea & Verified 03/06/18 11:43 Vomiting ketorolac [From Toradol] AdvReac Dyspnea Verified 03/06/18 11:43 Physical Exam Vitals: Vital Signs Temp Pulse Pulse Resp BP Pulse Ox 03/07/18 18:44 93 104/65 03/07/18 18:29 101 H 106/68 03/07/18 16:59 100 03/07/18 16:46 98 94 L 03/07/18 16:00 97 F L 72 18 112/71 93 L 03/07/18 13:05 100 03/07/18 12:48 100 03/07/18 12:00 106 H 18 104/68 96 03/07/18 09:12 100 03/07/18 09:02 96 93 L 03/07/18 08:00 96.8 F L 116 H 19 124/74 100 03/07/18 04:53 106 H 03/07/18 04:34 108 H 03/07/18 04:13 96.8 F L 114 H 16 118/74 94 L 03/06/18 23:59 108 H 03/06/18 23:50 104 H 03/06/18 23:41 97.7 F 114 H 18 116/68 93 L 03/06/18 21:11 98 03/06/18 20:56 100 95 03/06/18 20:43 97.0 F L 107 H 21 107/74 93 L Intake and Output 03/07/18 03/07/18 03/07/18 06:59 14:59 22:59 Intake Total 50 310 Balance 50 310 Intake: Intake, IV Titration 50 190 Amount Piperacillin-Tazobactam 3 50 50 .375 gm In Dextrose/Water 1 50ml.bag @ 12.5 mls/hr IVPB Q8H [facility] Rx#: [id number] Sodium Chloride 0.9% 1, 140 000 ml @ 20 mls/hr IV . Q24H [facility] Rx#:[id number] Oral 120 Other: Voiding Method Toilet # Voids 1 1 Weight 79.2 kg 79.2 kg On physical examination, patient appears comfortable in no apparent distress. HEAD: Normocephalic, atraumatic. EYES: No scleral icterus. No conjunctival injection. MOUTH: No lesions, tongue midline. NECK: Trachea midline, no gross abnormalities. CHEST: Decreased air entry in all lung de la cruz with wheezing appreciated. HEART: Irregularly irregular. ABDOMEN: Soft, obese. Bowel sounds are positive. No organomegaly. No guarding or rigidity. EXTREMITIES: No pedal edema. SKIN: No rashes, no jaundice. NEUROLOGIC: Alert and oriented x3. No focal deficits Results CBC & Chem 7: 03/07/18 05:45 03/07/18 05:45 Labs: Abnormal Lab Results - Last 24 Hours (Table) 03/06/18 03/06/18 03/06/18 Range/Units 08:22 15:36 21:43 RBC (3.80-5.40) m/uL Hgb (11.4-16.0) gm/dL Hct (34.0-46.0) % RDW (11.5-15.5) % Neutrophils # (1.3-7.7) k/uL Lymphocytes # (1.0-4.8) k/uL Sodium (137-145) mmol/L Carbon Dioxide (22-30) mmol/L BUN (7-17) mg/dL Creatinine (0.52-1.04) mg/dL Glucose (74-99) mg/dL POC Glucose (mg/dL) 148 H (75-99) mg/dL Iron 15 L (50-170) ug/dL Iron Saturation 5.32 L (12.00-45.00) Total Bilirubin (0.2-1.3) mg/dL AST (14-36) U/L ALT (9-52) U/L Alkaline Phosphatase (38-126) U/L Total Protein (6.3-8.2) g/dL Albumin (3.5-5.0) g/dL Procalcitonin 0.20 H (0.02-0.09) ng/mL 03/07/18 03/07/18 03/07/18 Range/Units 00:16 05:45 05:45 RBC 3.41 L (3.80-5.40) m/uL Hgb 9.7 L (11.4-16.0) gm/dL Hct 30.9 L (34.0-46.0) % RDW 16.3 H (11.5-15.5) % Neutrophils # 7.9 H (1.3-7.7) k/uL Lymphocytes # 0.6 L (1.0-4.8) k/uL Sodium 134 L (137-145) mmol/L Carbon Dioxide 12 L (22-30) mmol/L BUN 56 H (7-17) mg/dL Creatinine 2.26 H (0.52-1.04) mg/dL Glucose 123 H (74-99) mg/dL POC Glucose (mg/dL) 146 H (75-99) mg/dL Iron (50-170) ug/dL Iron Saturation (12.00-45.00) Total Bilirubin 3.0 H (0.2-1.3) mg/dL AST >750 H (14-36) U/L ALT >1000 H (9-52) U/L Alkaline Phosphatase 153 H (38-126) U/L Total Protein 6.1 L (6.3-8.2) g/dL Albumin 3.3 L (3.5-5.0) g/dL Procalcitonin (0.02-0.09) ng/mL 03/07/18 03/07/18 03/07/18 Range/Units 06:08 11:51 16:53 RBC (3.80-5.40) m/uL Hgb (11.4-16.0) gm/dL Hct (34.0-46.0) % RDW (11.5-15.5) % Neutrophils # (1.3-7.7) k/uL Lymphocytes # (1.0-4.8) k/uL Sodium (137-145) mmol/L Carbon Dioxide (22-30) mmol/L BUN (7-17) mg/dL Creatinine (0.52-1.04) mg/dL Glucose (74-99) mg/dL POC Glucose (mg/dL) 155 H 120 H 158 H (75-99) mg/dL Iron (50-170) ug/dL Iron Saturation (12.00-45.00) Total Bilirubin (0.2-1.3) mg/dL AST (14-36) U/L ALT (9-52) U/L Alkaline Phosphatase (38-126) U/L Total Protein (6.3-8.2) g/dL Albumin (3.5-5.0) g/dL Procalcitonin (0.02-0.09) ng/mL Microbiology - Last 24 Hours (Table) 03/06/18 08:22 Blood Culture - Preliminary Blood No Growth after 24 hours US - abdomen: report reviewed (Patient of the abdomen significant for a normal common bile duct, sonographic Farias sign with acute and chronic cholecystitis seen and tiny gallstones.) Assessment and Plan (1) Elevated liver enzymes Narrative/Plan: Patient has acute rise of liver enzymes in both a hepatocellular and cholestatic pattern increased from prior admission 2 weeks ago. Given the patient's underlying cardiac history and pulmonary embolism suspect ischemia or congestive hepatopathy as etiology of her elevated liver enzymes. No evidence of common bile duct dilation to suggest obstruction. Also consider medication effect. Hepatitis panel negative for viral etiology and ultrasound reviewed. Current Visit: Yes Status: Acute Code(s): R74.8 - ABNORMAL LEVELS OF OTHER SERUM ENZYMES SNOMED Code(s): 735894696 (2) Cholecystitis Narrative/Plan: Acute and chronic cholecystitis seen on ultrasound imaging. Current Visit: Yes Status: Acute Code(s): K81.9 - CHOLECYSTITIS, UNSPECIFIED SNOMED Code(s): 40602201 (3) Normocytic anemia Narrative/Plan: Known history of normocytic anemia, suspect secondary to chronic disease. Stable at baseline. Current Visit: Yes Status: Acute Code(s): D64.9 - ANEMIA, UNSPECIFIED SNOMED Code(s): 065964408 Plan: Port of care Monitor liver enzymes Suspect cardiac/ischemic etiology, however if liver enzymes do not continue to trend down will order a full serology Viral hepatitis panel negative and ultrasound reviewed Okay for diet Monitor hemoglobin and transfuse as needed Continue other medical management per primary team Thank you for allowing us to participate in the care of this patient we will continue to follow
[2018-03-08] MEDS: AMIODARONE 450 MG in DEXTROSE 5% IN WATER 250 ML IV SCH ×2 (01:13)
[2018-03-08] MEDS: IPRATROPIUM-ALBUTEROL 3 ML NEB INHALATION SCH ×5 (04:20→19:57)
[2018-03-08] MEDS ORDERED: DEXTROSE 50%-WATER 50 ML SYRINGE IVP ONE ×2 (04:52→10:57)
[2018-03-08 04:53] LABS: Glucose,Whole Blood 53 mg/dL (75-99)
[2018-03-08] MEDS ORDERED: NALOXONE 0.4 MG/ML 1 ML VIAL IV PRN (05:02)
[2018-03-08] MEDS ORDERED: NOREPINEPHRINE 4 MG in SODIUM CHLORIDE 0.9% 250 ML IV SCH (05:15)
[2018-03-08 05:36] LABS: Glucose,Whole Blood 261 mg/dL (75-99)
[2018-03-08 05:57] LABS: Anisocytosis Slight; HCT 32.3 % (34.0-46.0); HGB 9.9 gm/dL (11.4-16.0); Hypochromasia Marked; MCH 28.9 pg (25.0-35.0); MCHC 30.6 g/dL (31.0-37.0); MCV 94.4 fL (80.0-100.0); Mean Platelet Volume 10.3; RBC 3.42 m/uL (3.80-5.40); RDW 16.1 % (11.5-15.5)
[2018-03-08 06:42] LABS: Alkaline Phosphatase 133 U/L (38-126); Amylase 114 U/L (30-110); Anion Gap 24 mmol/L; Blood Urea Nitrogen 63 mg/dL (7-17); Calcium 8.2 mg/dL (8.4-10.2); Carbon Dioxide 10 mmol/L (22-30); Chloride 94 mmol/L (98-107); Glucose 145 mg/dL (74-99); Lipase 1053 U/L (23-300); Magnesium 2.8 mg/dL (1.6-2.3); Sodium 128 mmol/L (137-145); Total Bilirubin 5.3 mg/dL (0.2-1.3); Total Protein 5.6 g/dL (6.3-8.2)
[2018-03-08 06:57] LABS: Lymphocytes # (M) 0.55 k/uL (1.0-4.8); Monocytes # (M) 1.38 k/uL (0-1.0); Neutrophils # (M) 25.58 k/uL (1.3-7.7); Neutrophils % (M) 93 %; Nucleated Red Blood Cells 2 /100 WBC (0-0); Total Cells Counted 200; WBC 27.5 k/uL (3.8-10.6)
[2018-03-08 06:58] LABS: Platelet Count 80 k/uL (150-450)
[2018-03-08 06:59] LABS: Large Platelets Present; Polychromasia Present
[2018-03-08 07:01] LABS: Phosphorus 9.4 mg/dL (2.5-4.5); Potassium 6.1 mmol/L (3.5-5.1)
[2018-03-08] MEDS ORDERED: MEROPENEM 2 GM in SODIUM CHLORIDE 0.9% 100 ML IVPB STA (07:37)
[2018-03-08] MEDS ORDERED: SODIUM CHLORIDE 0.9% 2,000 ML IV ONE (07:37)
[2018-03-08] MEDS ORDERED: VANCOMYCIN IV PER PHARMACY 1 EACH MISC MISCELLANE PRN (07:37)
[2018-03-08] MEDS ORDERED: SODIUM BICARB 8.4% 50 ML SYR (1 MEQ/ML) IV STA (07:37)
[2018-03-08] MEDS ORDERED: VANCOMYCIN 1,500 MG in SODIUM CHLORIDE 0.9% 250 ML IVPB STA (07:47)
[2018-03-08 08:13] LABS: Glucose,Whole Blood 117 mg/dL (75-99)
--- NOTE | 2018-03-08 08:25 | XR ---
EXAMINATION TYPE: XR chest 1V DATE OF EXAM: 03/08/2018 COMPARISON: 03/06/2018 HISTORY: Difficulty breathing TECHNIQUE: Single frontal view of the chest is obtained. FINDINGS: There is bilateral small effusions with left lower lobe and right upper lobe consolidation . Interstitium is improved. Atherosclerotic change of the aorta. Heart is enlarged. IMPRESSION: 1. Bilateral areas of consolidation involving the right upper lobe and left lower lobe. Correlate for pneumonia. Underlying neoplasm not excluded follow-up to resolution.
[2018-03-08] MEDS: INSULIN ASPART 100 UNIT/ML 1 ML 10 ML VIAL SQ SCH ×5 (08:44→23:52)
[2018-03-08 09:09] LABS: ALT 6130 U/L (9-52); AST >7500 U/L (14-36)
--- NOTE | 2018-03-08 09:28 | P.PN ---
Subjective Progress Note Date: 03/08/18 Principal diagnosis: Elevated liver enzymes 72-year-old female admitted with shortness of breath CHF symptoms abdominal discomfort elevated liver enzymes septic type picture underlying history of atrial fibrillation AICD. Patient reevaluated today in regards to elevated liver enzymes. Nursing reports last night and 18 was called secondary to a tachyarrhythmia with hypotension. Converted with medications. This morning lactic acid elevated to 12. Afebrile. Receiving high-dose pressors Levophed 30 mcg. White count increased 27.5. He will 9.9. Platelet 80,000. Potassium 6.1. BUN 63. Creatinine 3.4. Total bilirubin 5.3. AST greater than 7500. ALT 6130. Lipase 1053. Amylase 114. Evaluated by general surgery no surgical plans at this time. Objective - Vital Signs Vital signs: Vital Signs Temp 99 F 03/08/18 04:50 Pulse 95 03/08/18 09:03 Resp 16 03/08/18 07:30 BP 109/78 03/08/18 06:40 Pulse Ox 94 L 03/08/18 07:30 Intake & Output 03/07/18 03/08/18 03/08/18 18:59 06:59 18:59 Intake Total 310 817.608 20 Output Total 375 40 Balance 310 442.608 -20 Weight 79.2 kg 82.8 kg Intake: IV 520 20 0.9 bolus 500 Sodium Chloride 0.9% 1, 20 20 000 ml @ 20 mls/hr IV . Q24H [facility] Rx#:[id number] Intake, IV Titration 190 297.608 Amount Amiodarone 450 mg In 212.358 Dextrose 5% in Water 250 ml @ 1 MG/MIN 34.53 mls/ hr IV .Q7H31M [facility] Rx#: [id number] Norepinephrine 4 mg In 85.250 Sodium Chloride 0.9% 250 ml @ Titrate IV .Q0M [facility] Rx#:[id number] Piperacillin-Tazobactam 3 50 .375 gm In Dextrose/Water 1 50ml.bag @ 12.5 mls/hr IVPB Q8H [facility] Rx#: [id number] Sodium Chloride 0.9% 1, 140 000 ml @ 20 mls/hr IV . Q24H [facility] Rx#:[id number] Oral 120 Output: Urine 375 40 Other: Voiding Method Indwelling Catheter # Voids 1 2 - Exam General appearance: The patient is awake and drowsy. Appears weak and lethargic. HET: Head is normocephalic and atraumatic. Pupils are equal and reactive. Oropharynx is clear without lesions. Neck: Supple without lymphadenopathy. Trachea midline. Heart: S1 S2. Regular rate and rhythm. Lungs: No crackles or wheezes are heard. Abdomen: Soft, nontender, nondistended with bowel sounds. No peritoneal signs. No palpable organomegaly or masses. Extremities: Normal skin color and turgor. No cyanosis, rash, ulceration, clubbing, or edema. Radial and pedal pulses are 2/4 bilaterally. Ortega with clear yellow urine. Neurological: No focal deficits. Strength and sensation are grossly intact. - Labs CBC & Chem 7: 03/09/18 02:30 03/09/18 02:30 Labs: Abnormal Lab Results - Last 24 Hours (Table) 03/06/18 03/06/18 03/07/18 Range/Units 08:22 15:36 11:51 WBC (3.8-10.6) k/uL RBC (3.80-5.40) m/uL Hgb (11.4-16.0) gm/dL Hct (34.0-46.0) % MCHC (31.0-37.0) g/dL RDW (11.5-15.5) % Plt Count (150-450) k/uL Neutrophils # (Manual) (1.3-7.7) k/uL Lymphocytes # (Manual) (1.0-4.8) k/uL Monocytes # (Manual) (0-1.0) k/uL Nucleated RBCs (0-0) /100 WBC Sodium (137-145) mmol/L Potassium (3.5-5.1) mmol/L Chloride (98-107) mmol/L Carbon Dioxide (22-30) mmol/L BUN (7-17) mg/dL Creatinine (0.52-1.04) mg/dL Glucose (74-99) mg/dL POC Glucose (mg/dL) 120 H (75-99) mg/dL Plasma Lactic Acid Surya (0.7-2.0) mmol/L Calcium (8.4-10.2) mg/dL Phosphorus (2.5-4.5) mg/dL Magnesium (1.6-2.3) mg/dL Iron 15 L (50-170) ug/dL Iron Saturation 5.32 L (12.00-45.00) Total Bilirubin (0.2-1.3) mg/dL AST (14-36) U/L ALT (9-52) U/L Alkaline Phosphatase (38-126) U/L Total Protein (6.3-8.2) g/dL Albumin (3.5-5.0) g/dL Amylase (30-110) U/L Lipase (23-300) U/L Procalcitonin 0.20 H (0.02-0.09) ng/mL 03/07/18 03/07/18 03/08/18 Range/Units 16:53 20:48 04:52 WBC (3.8-10.6) k/uL RBC (3.80-5.40) m/uL Hgb (11.4-16.0) gm/dL Hct (34.0-46.0) % MCHC (31.0-37.0) g/dL RDW (11.5-15.5) % Plt Count (150-450) k/uL Neutrophils # (Manual) (1.3-7.7) k/uL Lymphocytes # (Manual) (1.0-4.8) k/uL Monocytes # (Manual) (0-1.0) k/uL Nucleated RBCs (0-0) /100 WBC Sodium (137-145) mmol/L Potassium (3.5-5.1) mmol/L Chloride (98-107) mmol/L Carbon Dioxide (22-30) mmol/L BUN (7-17) mg/dL Creatinine (0.52-1.04) mg/dL Glucose (74-99) mg/dL POC Glucose (mg/dL) 158 H 161 H 53 L (75-99) mg/dL Plasma Lactic Acid Surya (0.7-2.0) mmol/L Calcium (8.4-10.2) mg/dL Phosphorus (2.5-4.5) mg/dL Magnesium (1.6-2.3) mg/dL Iron (50-170) ug/dL Iron Saturation (12.00-45.00) Total Bilirubin (0.2-1.3) mg/dL AST (14-36) U/L ALT (9-52) U/L Alkaline Phosphatase (38-126) U/L Total Protein (6.3-8.2) g/dL Albumin (3.5-5.0) g/dL Amylase (30-110) U/L Lipase (23-300) U/L Procalcitonin (0.02-0.09) ng/mL 03/08/18 03/08/18 03/08/18 Range/Units 05:01 05:42 05:42 WBC 27.5 H (3.8-10.6) k/uL RBC 3.42 L (3.80-5.40) m/uL Hgb 9.9 L (11.4-16.0) gm/dL Hct 32.3 L (34.0-46.0) % MCHC 30.6 L (31.0-37.0) g/dL RDW 16.1 H (11.5-15.5) % Plt Count 80 L D (150-450) k/uL Neutrophils # (Manual) 25.58 H (1.3-7.7) k/uL Lymphocytes # (Manual) 0.55 L (1.0-4.8) k/uL Monocytes # (Manual) 1.38 H (0-1.0) k/uL Nucleated RBCs 2 H (0-0) /100 WBC Sodium 128 L (137-145) mmol/L Potassium 6.1 H* (3.5-5.1) mmol/L Chloride 94 L (98-107) mmol/L Carbon Dioxide 10 L (22-30) mmol/L BUN 63 H (7-17) mg/dL Creatinine (0.52-1.04) mg/dL Glucose 145 H (74-99) mg/dL POC Glucose (mg/dL) 261 H (75-99) mg/dL Plasma Lactic Acid Surya (0.7-2.0) mmol/L Calcium 8.2 L (8.4-10.2) mg/dL Phosphorus 9.4 H* (2.5-4.5) mg/dL Magnesium 2.8 H (1.6-2.3) mg/dL Iron (50-170) ug/dL Iron Saturation (12.00-45.00) Total Bilirubin 5.3 H (0.2-1.3) mg/dL AST (14-36) U/L ALT (9-52) U/L Alkaline Phosphatase 133 H (38-126) U/L Total Protein 5.6 L (6.3-8.2) g/dL Albumin 3.0 L (3.5-5.0) g/dL Amylase 114 H (30-110) U/L Lipase 1053 H (23-300) U/L Procalcitonin (0.02-0.09) ng/mL 03/08/18 03/08/18 03/08/18 Range/Units 05:42 07:24 08:12 WBC (3.8-10.6) k/uL RBC (3.80-5.40) m/uL Hgb (11.4-16.0) gm/dL Hct (34.0-46.0) % MCHC (31.0-37.0) g/dL RDW (11.5-15.5) % Plt Count (150-450) k/uL Neutrophils # (Manual) (1.3-7.7) k/uL Lymphocytes # (Manual) (1.0-4.8) k/uL Monocytes # (Manual) (0-1.0) k/uL Nucleated RBCs (0-0) /100 WBC Sodium (137-145) mmol/L Potassium (3.5-5.1) mmol/L Chloride (98-107) mmol/L Carbon Dioxide (22-30) mmol/L BUN (7-17) mg/dL Creatinine 3.46 H (0.52-1.04) mg/dL Glucose (74-99) mg/dL POC Glucose (mg/dL) 117 H (75-99) mg/dL Plasma Lactic Acid Surya 12.0 H* (0.7-2.0) mmol/L Calcium (8.4-10.2) mg/dL Phosphorus (2.5-4.5) mg/dL Magnesium (1.6-2.3) mg/dL Iron (50-170) ug/dL Iron Saturation (12.00-45.00) Total Bilirubin (0.2-1.3) mg/dL AST >7500 H (14-36) U/L ALT 6130 H (9-52) U/L Alkaline Phosphatase (38-126) U/L Total Protein (6.3-8.2) g/dL Albumin (3.5-5.0) g/dL Amylase (30-110) U/L Lipase (23-300) U/L Procalcitonin (0.02-0.09) ng/mL Microbiology - Last 24 Hours (Table) 03/06/18 08:22 Blood Culture - Preliminary Blood No Growth after 24 hours Assessment and Plan (1) Elevated liver enzymes Narrative/Plan: 72-year-old female admitted with acute on chronic congestive heart failure ischemic cardiomyopathy shortness of breath and elevated liver enzymes consistent with acute hepatocellular injury shock liver congestive hepatopathy. Worsening of kidney function leukocytosis transaminases with septic type cardiac failure picture source is unclear at this time. Recent episode of bilateral lower lobe pneumonia. Current Visit: Yes Status: Acute Code(s): R74.8 - ABNORMAL LEVELS OF OTHER SERUM ENZYMES SNOMED Code(s): 031512253 (2) Elevated amylase and lipase Current Visit: Yes Status: Acute Code(s): R74.8 - ABNORMAL LEVELS OF OTHER SERUM ENZYMES SNOMED Code(s): 427259942 (3) Congestive heart failure Current Visit: Yes Status: Acute Code(s): I50.9 - HEART FAILURE, UNSPECIFIED SNOMED Code(s): 73825075 (4) Acute kidney injury Current Visit: No Status: Acute Code(s): N17.9 - ACUTE KIDNEY FAILURE, UNSPECIFIED SNOMED Code(s): 48814337 (5) Ischemic cardiomyopathy Current Visit: No Status: Chronic Code(s): I25.5 - ISCHEMIC CARDIOMYOPATHY SNOMED Code(s): 713440726 (6) Elevated lactic acid level Current Visit: Yes Status: Acute Code(s): R79.89 - OTHER SPECIFIED ABNORMAL FINDINGS OF BLOOD CHEMISTRY SNOMED Code(s): 4343017 Plan: 1. Overall condition is guarded. Multiple consultants following. Continue to monitor CMP we'll obtain PT INR with daily monitoring. Continue supportive symptomatic measures. We'll continue to follow with you. Assessment and plan of care discussed with Dr. Stone
[2018-03-08] MEDS: PROPOFOL 1,000 MG in EMPTY BAG 1 BAG IV SCH (10:00)
--- NOTE | 2018-03-08 10:28 | P.PN ---
Subjective Progress Note Date: 03/08/18 This is 72-year-old white female patient of Dr. Crowell, who presented to the emergency department when 03/06/2018 were evaluation of shortness of breath , cough with yellow sputum production. Patient denied any fever or chills, denied any chest pain. Past medical history is positive for hypertension, ischemic cardiomyopathy status post AICD placement with EF of 30-35%, atrial fibrillation, congestive heart failure, anxiety, depression, carotid stenosis, GERD, and previous episodes of pneumonia. Patient was recently hospitalized in February, for bilateral lower lobe pneumonia, in addition to a CHF exacerbation. She did require admission to the intensive care unit, she was treated with accommodation of Zosyn and vancomycin. She improved, was discharged home. On arrival to the emergency department patient was significantly dyspneic, she was given breathing treatments. Reports difficulty breathing with exertion, and some orthopnea. She was also complaining of right shoulder pain, denies any falls or trauma. She reports dry cough, no peripheral swelling. Significant weight gain. X-ray was completed in the emergency department and showed cardiomegaly and COPD. EKG showed normal sinus rhythm without acute ST/T-wave abnormalities. Lab work was done, and was negative for any evidence of leukocytosis, WBC is 8.9, hemoglobin is 10.3, INR was 2.5, d-dimer was elevated to 4.28, sodium is 135, B1 is 40, creatinine is 1.6. Patient's AST was 1448, and ALT was 1090, and with alkaline phosphatase at 170. ProBNP was 18,300, and troponins were 0.027, 0.024, 0.034. VQ scan was obtained, which showed intermediate probability of pulmonary embolism, chest x-ray on 03/06/2018 showed congestive heart failure. Patient is normally on home oxygen at 2 L per nasal cannula. She is a history of smoking, she quit smoking in 1997, prior to that smoked a pack a day for 20 years. She denies any history of COPD. She was supposed to see Dr. Lang in follow-up in the office this week. Patient was started on IV diuretics, she did receive IV Solu- Medrol, nebulized bronchodilators and empiric antibiotics.. She is diuresing. On today's exam, she is feeling better, breathing easier. No wheezing, no significant coughing, chest congestion or sputum production. Remains afebrile, denies any chest pain, worsening shortness of breath. On 03/08/2018, the patient is being seen in the intensive care unit. Condition decompensated significantly overnight. The patient became progressively more hypotensive and lethargic and and around 4:30 AM a emergency calls was made to the A team and the patient was found to be severely acidotic him a essentially lactic acidosis and the lactic acid level was 12. The patient was oliguric/ anuric and producing minimal amount of urine output. Potassium level was at 6.1. Creatinine was up to 3.4. There had been further increase in the liver function test and an ALT of 6100 and AST of 7500. Lipase was 1053. The patient was seen by general surgery and the patient was seen by gastroenterology and this is considered to be a representation of shock liver rather than acute intra-abdominal issue/acute abdomen. In the therapist respiratory hours, the patient was started on Pres. patient is currently on high-dose norepinephrine infusion which was as high as 40 g per KG per minute. I saw the patient in the ICU first thing in the morning. The patient was in shock. She was encephalopathic and extremely lethargic. She was cold and clammy and diminished pulses in the left lower extremity and upper extremity unless debilitated checked by Doppler. The patient was still communicating and responding only to simple commands. Nevertheless, she was quite encephalopathic and lethargic and drowsy. Mother was at the bedside. I did brief discussion with the and gave him an update on her condition. Subsequently, I had to insert a triple lumen catheter an outlying catheter for hemodynamic monitoring and ongoing hemodynamic support. I also intubated the patient states that on mechanical ventilation follow-up blood gases are still pending. Meanwhile the patient received a total of 2 L of IV fluid in the form of normal saline. Urine output still diminished. Following an outlying catheter insertion to systolic blood pressure was measured to be at 1:30. Pressors are currently being gradually weaned off. Her cardiac rhythm is sinus although she is having short runs of atrial fibrillation. She is currently off amiodarone. She has off Eliquis. She is afebrile. She is sedated for the purpose of intubation mechanical ventilation. I put the patient on assist control mode of ventilation following blood gases are still pending. Post intubation chest x-ray show that the patient's right IJ line has been directed however the right subclavian. ET tube and orogastric tube are all Objective - Vital Signs Vital signs: Vital Signs Temp 99 F 03/08/18 04:50 Pulse 100 03/08/18 09:20 Resp 16 03/08/18 07:30 BP 109/78 03/08/18 06:40 Pulse Ox 94 L 03/08/18 07:30 Intake & Output 03/07/18 03/08/18 03/08/18 18:59 06:59 18:59 Intake Total 310 817.608 20 Output Total 375 40 Balance 310 442.608 -20 Weight 79.2 kg 82.8 kg Intake: IV 520 20 0.9 bolus 500 Sodium Chloride 0.9% 1, 20 20 000 ml @ 20 mls/hr IV . Q24H [facility] Rx#:[id number] Intake, IV Titration 190 297.608 Amount Amiodarone 450 mg In 212.358 Dextrose 5% in Water 250 ml @ 1 MG/MIN 34.53 mls/ hr IV .Q7H31M [facility] Rx#: [id number] Norepinephrine 4 mg In 85.250 Sodium Chloride 0.9% 250 ml @ Titrate IV .Q0M [facility] Rx#:[id number] Piperacillin-Tazobactam 3 50 .375 gm In Dextrose/Water 1 50ml.bag @ 12.5 mls/hr IVPB Q8H [facility] Rx#: [id number] Sodium Chloride 0.9% 1, 140 000 ml @ 20 mls/hr IV . Q24H [facility] Rx#:[id number] Oral 120 Output: Urine 375 40 Other: Voiding Method Indwelling Catheter # Voids 1 2 - Exam Patient is sedated on Diprivan 20 mics., Comfortable. Intubated on a mechanical ventilator. Orogastric and orotracheal tube are both in place. Head is atraumatic normocephalic. Neck examination shows positive JVDs on a 30 bed elevation. No goiter or neck masses. Mucous membranes are dry. The patient has some conjunctival icterus and pallor. Lungs sounds are diminished bilaterally along with bibasilar crackles. Heart sounds are tachycardic and there are distant. Positive S1-S2 and there is a faint murmur heard at a 2/6 throughout the precordium. Abdominal exam revealed normal bowel sounds. The abdomen was soft, non-tender, and without masses, organomegaly, or appreciable enlargement of the abdominal aorta. Examination of the extremities marked diminished pulses in lower extremities bilaterally also diminished pulses in the upper extremities. There are obtainable by Doppler. Femoral pulses are present. There is some cyanosis. No clubbing. Extremities are cold and clammy Examination of the skin revealed no evidence of significant rashes, suspicious appearing nevi or other concerning lesions. Neurologic the patient was encephalopathic and currently she is sedated with Diprivan and calm and comfortable. Psychiatric evaluation cannot be done. - Labs CBC & Chem 7: 03/08/18 05:42 03/08/18 07:24 Labs: Abnormal Lab Results - Last 24 Hours (Table) 03/06/18 03/07/18 03/07/18 Range/Units 15:36 11:51 16:53 WBC (3.8-10.6) k/uL RBC (3.80-5.40) m/uL Hgb (11.4-16.0) gm/dL Hct (34.0-46.0) % MCHC (31.0-37.0) g/dL RDW (11.5-15.5) % Plt Count (150-450) k/uL Neutrophils # (Manual) (1.3-7.7) k/uL Lymphocytes # (Manual) (1.0-4.8) k/uL Monocytes # (Manual) (0-1.0) k/uL Nucleated RBCs (0-0) /100 WBC Sodium (137-145) mmol/L Potassium (3.5-5.1) mmol/L Chloride (98-107) mmol/L Carbon Dioxide (22-30) mmol/L BUN (7-17) mg/dL Creatinine (0.52-1.04) mg/dL Glucose (74-99) mg/dL POC Glucose (mg/dL) 120 H 158 H (75-99) mg/dL Plasma Lactic Acid Surya (0.7-2.0) mmol/L Calcium (8.4-10.2) mg/dL Phosphorus (2.5-4.5) mg/dL Magnesium (1.6-2.3) mg/dL Iron 15 L (50-170) ug/dL Iron Saturation 5.32 L (12.00-45.00) Total Bilirubin (0.2-1.3) mg/dL AST (14-36) U/L ALT (9-52) U/L Alkaline Phosphatase (38-126) U/L Total Protein (6.3-8.2) g/dL Albumin (3.5-5.0) g/dL Amylase (30-110) U/L Lipase (23-300) U/L 03/07/18 03/08/18 03/08/18 Range/Units 20:48 04:52 05:01 WBC (3.8-10.6) k/uL RBC (3.80-5.40) m/uL Hgb (11.4-16.0) gm/dL Hct (34.0-46.0) % MCHC (31.0-37.0) g/dL RDW (11.5-15.5) % Plt Count (150-450) k/uL Neutrophils # (Manual) (1.3-7.7) k/uL Lymphocytes # (Manual) (1.0-4.8) k/uL Monocytes # (Manual) (0-1.0) k/uL Nucleated RBCs (0-0) /100 WBC Sodium (137-145) mmol/L Potassium (3.5-5.1) mmol/L Chloride (98-107) mmol/L Carbon Dioxide (22-30) mmol/L BUN (7-17) mg/dL Creatinine (0.52-1.04) mg/dL Glucose (74-99) mg/dL POC Glucose (mg/dL) 161 H 53 L 261 H (75-99) mg/dL Plasma Lactic Acid Surya (0.7-2.0) mmol/L Calcium (8.4-10.2) mg/dL Phosphorus (2.5-4.5) mg/dL Magnesium (1.6-2.3) mg/dL Iron (50-170) ug/dL Iron Saturation (12.00-45.00) Total Bilirubin (0.2-1.3) mg/dL AST (14-36) U/L ALT (9-52) U/L Alkaline Phosphatase (38-126) U/L Total Protein (6.3-8.2) g/dL Albumin (3.5-5.0) g/dL Amylase (30-110) U/L Lipase (23-300) U/L 03/08/18 03/08/18 03/08/18 Range/Units 05:42 05:42 05:42 WBC 27.5 H (3.8-10.6) k/uL RBC 3.42 L (3.80-5.40) m/uL Hgb 9.9 L (11.4-16.0) gm/dL Hct 32.3 L (34.0-46.0) % MCHC 30.6 L (31.0-37.0) g/dL RDW 16.1 H (11.5-15.5) % Plt Count 80 L D (150-450) k/uL Neutrophils # (Manual) 25.58 H (1.3-7.7) k/uL Lymphocytes # (Manual) 0.55 L (1.0-4.8) k/uL Monocytes # (Manual) 1.38 H (0-1.0) k/uL Nucleated RBCs 2 H (0-0) /100 WBC Sodium 128 L (137-145) mmol/L Potassium 6.1 H* (3.5-5.1) mmol/L Chloride 94 L (98-107) mmol/L Carbon Dioxide 10 L (22-30) mmol/L BUN 63 H (7-17) mg/dL Creatinine (0.52-1.04) mg/dL Glucose 145 H (74-99) mg/dL POC Glucose (mg/dL) (75-99) mg/dL Plasma Lactic Acid Surya 12.0 H* (0.7-2.0) mmol/L Calcium 8.2 L (8.4-10.2) mg/dL Phosphorus 9.4 H* (2.5-4.5) mg/dL Magnesium 2.8 H (1.6-2.3) mg/dL Iron (50-170) ug/dL Iron Saturation (12.00-45.00) Total Bilirubin 5.3 H (0.2-1.3) mg/dL AST (14-36) U/L ALT (9-52) U/L Alkaline Phosphatase 133 H (38-126) U/L Total Protein 5.6 L (6.3-8.2) g/dL Albumin 3.0 L (3.5-5.0) g/dL Amylase 114 H (30-110) U/L Lipase 1053 H (23-300) U/L 03/08/18 03/08/18 Range/Units 07:24 08:12 WBC (3.8-10.6) k/uL RBC (3.80-5.40) m/uL Hgb (11.4-16.0) gm/dL Hct (34.0-46.0) % MCHC (31.0-37.0) g/dL RDW (11.5-15.5) % Plt Count (150-450) k/uL Neutrophils # (Manual) (1.3-7.7) k/uL Lymphocytes # (Manual) (1.0-4.8) k/uL Monocytes # (Manual) (0-1.0) k/uL Nucleated RBCs (0-0) /100 WBC Sodium (137-145) mmol/L Potassium (3.5-5.1) mmol/L Chloride (98-107) mmol/L Carbon Dioxide (22-30) mmol/L BUN (7-17) mg/dL Creatinine 3.46 H (0.52-1.04) mg/dL Glucose (74-99) mg/dL POC Glucose (mg/dL) 117 H (75-99) mg/dL Plasma Lactic Acid Surya (0.7-2.0) mmol/L Calcium (8.4-10.2) mg/dL Phosphorus (2.5-4.5) mg/dL Magnesium (1.6-2.3) mg/dL Iron (50-170) ug/dL Iron Saturation (12.00-45.00) Total Bilirubin (0.2-1.3) mg/dL AST >7500 H (14-36) U/L ALT 6130 H (9-52) U/L Alkaline Phosphatase (38-126) U/L Total Protein (6.3-8.2) g/dL Albumin (3.5-5.0) g/dL Amylase (30-110) U/L Lipase (23-300) U/L Microbiology - Last 24 Hours (Table) 03/06/18 08:22 Blood Culture - Preliminary Blood No Growth after 24 hours Assessment and Plan Plan: Assessment 1 cardiogenic shock with multisystem organ failure. The patient has presented with acute on top of chronic systolic heart failure and subsequently she went into multisystem organ failure. Currently she is hemodynamically unstable, hypotensive and pressor dependent 2 CHF with systolic heart failure and ejection fraction of 20-25% based on yesterday's echocardiogram. The patient also has global severe hypokinesis, left ventricle is moderately dilated, severe mitral regurgitation, severe three- vessel regurgitation, severe pulmonary hypertension, no significant inspiratory collapse of the IVC consistent with right-sided volume overload 3 acute hypoxic respiratory failure secondary to above 4 acute kidney injury secondary to above 5 acute shock liver secondary to above 6 proximal atrial fibrillation current rhythm is sinus 7 GERD artery disease with a previous left carotid endarterectomy 8 history of melanoma resected 9 acute hyperkalemia secondary to the metabolic acidosis and acute kidney injury. Potassium level is at 6.1 and the patient was given 2 ampules of sodium bicarbonate 10 severe lactic acidosis 11 acute thrombocytopenia secondary to above 12 acute leukocytosis secondary to above. Underlying sepsis felt to be less likely or Doppler this stage 13 acute elevation of the lipase questionable component of pancreatitis in addition 14 history of AICD placement 15 history of ESBL producing urine checked infection back in general 2017 with E. coli 16 chronic hypoxic respiratory failure and the patient is oxygen at 2 L per minute nasal cannula Plan Condition is extremely critical. The patient carries a very high mortality risk based on the presence of multisystem organ failure. A triple lumen catheter adenopathy cath was inserted. The patient is currently intubated on a mechanical ventilator. The patient on the volumes cycle assist-control mode and the patient will be getting a blood gases and a chest x-ray and necessary vent changes were begun accordingly. The patient will have all of her blood work repeated including CBC, complete metabolic profile, liver function tests, amylase lipase, lactic acid level, CPK and a blood gas and according to further adjustments will be done. Meanwhile, we'll obtain urine cultures and blood cultures and the patient be covered empirically with antibiotics with a combination of Merrem and vancomycin. Continue with pressors. Norepinephrine infusion is being continued for now. I don't think the patient will tolerate any dobutamine however this may be worthwhile to try as long as the patient maintains a normal sinus rhythm and she doesn't develop and hypotension. Hold Eliquis for now. Monitor the coagulation profile. GI is on the case. Cardiology is on the case. Condition is critical and the patient carries a high mortality risk baseline above-mentioned comorbidities. For the care evaluation was done in 1 hour excluding time to do any procedures. Case was discussed with the family and the primary care physician. Time with Patient: Greater than 30
--- NOTE | 2018-03-08 10:30 | XR ---
EXAMINATION TYPE: XR chest 1V DATE OF EXAM: 03/08/2018 COMPARISON: 03-24 HISTORY: Postintubation TECHNIQUE: Single frontal view of the chest is obtained. FINDINGS: ET tube with tip 2.5 cm above [place]. NG tube appears in good position. Cardiac device not ed. Mass or area of consolidation right upper lobe stable. Left lower lobe consolidation and bilatera l small effusion stable. Heart is enlarged and is atherosclerotic change of the aorta. Perihilar cons olidation the left stable. IMPRESSION: 1. Pleural-parenchymal changes are stable. ET tube 2.5 cm above marietta.
--- NOTE | 2018-03-08 10:32 | XR ---
EXAMINATION TYPE: XR chest 1V confirm line [facility] DATE OF EXAM: 03/08/2018 COMPARISON: 03/08/2018 HISTORY: Shortness of breath TECHNIQUE: Single frontal view of the chest is obtained. FINDINGS: There is bilateral small effusions with left lower lobe and right upper lobe consolidation . Interstitium is improved. Atherosclerotic change of the aorta. Heart is enlarged. Central line appears to be extending toward the right axilla. Report called to the patient's nurse. C ardiac device noted. Atherosclerotic change of the aorta. IMPRESSION: Stable pleural-parenchymal changes. See above regarding right-sided central line..
[2018-03-08 10:35] LABS: ABG HCO3 13 mmol/L (21-25); ABG Oxygen Saturation 99.3 % (94-97); ABG PCO2 27 mmHg (35-45); ABG PH 7.28 (7.35-7.45); ABG PO2 394 mmHg (83-108); ABG TCO2 14 mmol/L (19-24)
[2018-03-08 10:58] LABS: Glucose,Whole Blood 67 mg/dL (75-99)
[2018-03-08 11:00] LABS: Anisocytosis Slight; Hypochromasia Marked; MCH 28.4 pg (25.0-35.0); MCHC 30.9 g/dL (31.0-37.0); Mean Platelet Volume 10.2; RBC 2.93 m/uL (3.80-5.40)
[2018-03-08 11:02] LABS: Albumin 2.6 g/dL (3.5-5.0); Calcium 7.2 mg/dL (8.4-10.2); Potassium 5.1 mmol/L (3.5-5.1); Total Bilirubin 5.2 mg/dL (0.2-1.3)
[2018-03-08 11:03] LABS: HGB 8.3 gm/dL (11.4-16.0); Platelet Count 71 k/uL (150-450)
[2018-03-08] MEDS ORDERED: DEXTROSE 5% IN WATER 1,000 ML with SODIUM BICARB (1 MEQ/ML) 150 ML IV ONE (11:10)
--- NOTE | 2018-03-08 11:11 | PN ---
PROGRESS NOTE Aga is a 72-year-old lady that was admitted to hospital with shortness of breath. She was diagnosed with acute exacerbation of chronic systolic heart failure, was started on Lasix with some improvement in her symptoms. Yesterday afternoon, she developed atrial fibrillation with rapid ventricular rate. She was started on amiodarone, converted to sinus rhythm and subsequently was doing well. Early this morning she suddenly became very hypotensive and very symptomatic. She was transferred to ICU and at the time of my evaluation, she is in the intensive care unit on large doses of Levophed. Her white cell count, which was around 8 to 9, has jumped to 25. Her lactic acid is 12. The patient when she initially came to hospital, had elevated liver enzymes and underwent an abdominal ultrasound that showed both gallstones and thickened gallbladder wall. Patient at the moment is on IV antibiotics. Blood cultures have been sent. Does not seem to be in significant respiratory distress. She is developing significant renal insufficiency. Sodium level has dropped. Potassium level is up. Creatinine is 3.46. She first came to hospital with 1.6. Her AST, ALT are at 7500 and 6130, which is a significant jump from yesterday. ASSESSMENT: 1. Hypotension with multiorgan failure probably related to sepsis. 2. Elevated liver enzymes, unlikely to be related to congestive heart failure, both the degree of elevation of liver enzymes and suddenness with which they have worsened are not consistent with just hepatic congestion. 3. History of cardiomyopathy with congestive heart failure. Diuretics are currently on hold given the hypotension and the worsening renal functions. 4. She has history of atrial fibrillation. The anticoagulant is currently on hold. Her platelet count has dropped to 80. PHYSICAL EXAMINATION: On exam, heart rate is 94 beats per minute. Blood pressure is around 90/60. Respiratory rate is 22. Chest exam reveals diminished air entry at the bases. Heart exam reveals first and second heart sounds. Systolic murmur at the left lower sternal border. Abdomen is soft. Examination of extremities did not reveal any edema. Echocardiogram on this admission revealed severe LV systolic dysfunction with an ejection fraction of 20% to 25%, severe mitral and tricuspid regurgitation. ASSESSMENT: 1. Hypotension. 2. Elevated liver enzymes. 3. Acute exacerbation of chronic systolic heart failure. 4. Ischemic cardiomyopathy. 5. Renal failure. PLAN: Continue with the IV antibiotics, intravenous Levophed. Amiodarone is currently on hold. IV Lasix is also on hold. Patient's clinical presentation is probably related to sepsis. I do not believe elevated liver enzymes are related to the congestive heart failure that she came in with. MMODL / IJN: [id number] /
[2018-03-08 11:18] LABS: Creatine Kinase MB 21.1 ng/mL (0.0-2.4)
[2018-03-08 11:31] LABS: INR >10.0 (<1.2); Prothrombin Time >130.0 sec (9.0-12.0)
[2018-03-08 11:45] LABS: Band Neutrophils % 1 %; Neutrophils % (M) 97 %; Nucleated Red Blood Cells 4 /100 WBC (0-0); Total Cells Counted 200; WBC 19.8 k/uL (3.8-10.6)
[2018-03-08 11:46] LABS: Crenated RBC Present; Poikilocytosis (M) Present; Toxic Granulation Present
[2018-03-08] MEDS ORDERED: PHYTONADIONE 10 MG in SODIUM CHLORIDE 0.9% 50 ML IVPB STA (11:46)
--- NOTE | 2018-03-08 11:56 | PCN ---
PROCEDURE NOTE PROCEDURE: Intubation. PREOPERATIVE DIAGNOSIS: Acute respiratory failure. POSTOPERATIVE DIAGNOSIS: Acute respiratory failure. A time-out was completed verifying correct patient, procedure, site, positioning, and implant(s) or special equipment if applicable. Intubation was done utilizing a #4 MAC blade and the patient was intubated by a #8 orotracheal tube. No complication or bleeding. Chest x-ray showed adequate positioning of the ET tube and the patient had adequate oxygen and ventilation post-intubation. Second procedure is insertion of outline catheter site of insertion in the right femoral artery. No bedside complications or bleeding. The procedure is insertion of a triple-lumen catheter site of insertion of the right ICJ. No bedside complications or bleeding. Preop and postop diagnosis is all the same which is acute respiratory failure. MMODL / IJN: [id number] /
[2018-03-08 11:59] LABS: Glucose,Whole Blood 133 mg/dL (75-99)
[2018-03-08 12:09] LABS: Glucose,Whole Blood 136 mg/dL (75-99)
[2018-03-08] MEDS: DOBUTamine DRIP 500 MG in DEXTROSE/WATER 1 250ML.BAG IV SCH (12:12)
[2018-03-08] MEDS: NOREPINEPHRINE 16 MG in SODIUM CHLORIDE 0.9% 250 ML IV SCH ×2 (13:00→22:47)
--- NOTE | 2018-03-08 13:20 | PCN ---
PROCEDURE NOTE PREOPERATIVE DIAGNOSIS: Acute respiratory failure. POSTOPERATIVE DIAGNOSIS: Acute respiratory failure. PROCEDURE: Insertion of triple lumen catheter. TRIPLE LUMEN CATHETER PLACEMENT: Indication Hemodynamic monitoring/Intravenous access. A time-out was completed verifying correct patient, procedure, site, positioning, and implant(s) or special equipment if applicable. The patient was placed in a dependent position appropriate for triple lumen catheter placement based on the vein to be cannulated. The patient's right groin was prepped and draped in sterile fashion. 1% Lidocaine was used to anesthetize the surrounding skin area. A triple lumen 9F Cordis catheter was introduced into the common femoral vein using Seldinger technique. The catheter was threaded smoothly over the guide wire and appropriate blood return was obtained. Each lumen of the catheter was evacuated of air and flushed with sterile saline. The catheter was then sutured in place to the skin and a sterile dressing applied. Perfusion to the extremity distal to the point of catheter insertion was checked and found to be adequate. No bedside complications or bleeding. MMODL / IJN: [id number] /
[2018-03-08 13:37] LABS: Glucose,Whole Blood 139 mg/dL (75-99)
--- NOTE | 2018-03-08 13:45 | P.PN ---
Subjective Progress Note Date: 03/08/18 This is a 72 year-old female. Her primary care physician is Dr. Basil Crowell. Sees Dr. Real Jackson at [facility] She has a past medical history of hypertension, gastroesophageal reflux disease, carotid stenosis and non ischemic cardiomyopathy status post AICD with reported EF 30 -35 %, gout, anxiety and depression. She was recently hospitalized on June 08 following a fall secondary to dizziness with orthostatic changes ruled out. She ended up having a left radial fracture and left pelvic fracture. She was seen by orthopedics and they recommended splint and sling to the left arm and toe-touch weightbearing on the left lower extremity. Patient was again admitted on June 20 with confusion likely secondary to tramadol. She did present with history of passing out. AICD interrogation was done during the admission and found to have normal service function. Patient was again seen in 2017 with altered mental status sec to benzodiazepine which was held. Last seen on January for acute chest pain but stress test was negative Patisammn was admitted for bilateral pneumonia with CHF exacerbation. Patient comes in again with acute shortness of breath associated with cough with sputum production. Patient states she's been noticing reddish's phlegm production for the past 2 weeks. She states she was never well was discharged from the hospital. Patient had a follow-up appointment with Dr. Schaffer tomorrow but hasn't seen a primary care physician for the past 2 weeks. Patient received breathing treatments via EMS before coming to the hospital. There was slight improvement in symptoms on arrival to the ER but patient was found to be dyspneic in the ER. Vitas obtain suggested temp of 98.5, pulse rate 104, blood pressure 133/86, saturating well on 97% on 2 L which is patient' s baseline. Chest x-ray obtained suggested cardiomegaly and COPD but no consolidation with concern for pneumonia. Labs ordered suggestive hemoglobin 10.3 which is stable from the previous admissions. Her INR was 2.5 but patient is not on Coumadin. Also elevated was d-dimer 4.28. Creatinine is above the baseline of 1.2. LFTs were elevated with AST 1448, AST 1090, alkaline phosphatase 170. ProBNP elevated to 18,300. Troponin times 10.030 albumin 3.3. Based on patient's findings and symptoms there is a concern for pulmonary embolism though CTA cannot be ordered due to increased creatinine. V/Q scan ordered. Due to the hepatic congestion an acute elevation in liver enzymes liver ultrasound ordered to rule out cholecystitis/choledocholithiasis. Patient also complaining of significant shoulder pain and limited to the joint mobility likely secondary to arthritis. Pro-calcitonin ordered. Acute hepatitis panel ordered 03/07: Shoulder x-ray was negative. VQ scan shows multiple matching defects corresponds to intermediate probability of pulmonary embolism. Pulmonary is on consult. Patient has been seen by cardiology for acute exacerbation of chronic systolic heart failure with recommendations to continue IV Lasix. We did decrease Lasix to 40 mg IV daily. Echocardiogram report is pending. Patient is complaining of cough that is nonproductive and denies any blood in her cough. Robitussin added. Her shortness of breath is improved. Her pain in her shoulder is okay at this time. She does complain of nausea. Abdominal ultrasound showed probable tiny gallstones. Mild gallbladder wall thickening consistent with acute on chronic cholecystitis. No dilated ducts. Dr. Kaye plans no intervention at this time await GI evaluation. Patient is on a full liquid diet and fluid restriction of 2000 ML's added. 03/08: Last evening patient has not run off-colored 13 beats of V. tach and heart rate of 150-170. A Team was called and patient was in A. fib RVR. Patient was given IV magnesium and cardiology ordered Lopressor. A. fib was better controlled rate and started amiodarone bolus and protocol per Dr. Merino. Early this morning, another A Team was called for blood pressure of 56 /37 and patient was ordered for 500 mL bolus and transferred to ICU and started on vasopressors. Amiodarone drip was stopped. Patient required high-dose norepinephrine, lines were placed by Dr. Lauri Daley in, patient became lethargic and encephalopathy. Case discussed with the patient's and he wanted the patient intubated and patient was intubated and on mechanical ventilation. She was noted to have leukocytosis, anemia and thrombocytopenia, INR is greater than 10, liver function test are significantly elevated as well as CK and renal function. Amylase this morning was 114 and lipase 1053. Objective - Vital Signs Vital signs: Vital Signs Temp 99 F 03/08/18 04:50 Pulse 100 03/08/18 09:20 Resp 16 03/08/18 07:30 BP 109/78 03/08/18 06:40 Pulse Ox 94 L 03/08/18 07:30 Intake & Output 03/07/18 03/08/18 03/08/18 18:59 06:59 18:59 Intake Total 310 817.608 20 Output Total 375 40 Balance 310 442.608 -20 Weight 79.2 kg 82.8 kg Intake: IV 520 20 0.9 bolus 500 Sodium Chloride 0.9% 1, 20 20 000 ml @ 20 mls/hr IV . Q24H [facility] Rx#:[id number] Intake, IV Titration 190 297.608 Amount Amiodarone 450 mg In 212.358 Dextrose 5% in Water 250 ml @ 1 MG/MIN 34.53 mls/ hr IV .Q7H31M [facility] Rx#: [id number] Norepinephrine 4 mg In 85.250 Sodium Chloride 0.9% 250 ml @ Titrate IV .Q0M [facility] Rx#:[id number] Piperacillin-Tazobactam 3 50 .375 gm In Dextrose/Water 1 50ml.bag @ 12.5 mls/hr IVPB Q8H [facility] Rx#: [id number] Sodium Chloride 0.9% 1, 140 000 ml @ 20 mls/hr IV . Q24H [facility] Rx#:[id number] Oral 120 Output: Urine 375 40 Other: Voiding Method Indwelling Catheter # Voids 1 2 - Exam General appearance: no acute distress, obese - EENT Eyes: anicteric sclerae, PERRLA, normal appearance ENT: hearing grossly normal, intubated on mechanical ventilation, ET and orogastric tube in place - Neck Neck: no lymphadenopathy, normal ROM, no other, no rigidity, no stridor, no thyromegaly - Respiratory Respiratory: bilateral: Decreased bilaterally. No rhonchi or wheezing heard - Cardiovascular Rhythm: regular Heart sounds: normal: S1, S2 Abnormal Heart Sounds: no systolic murmur, no diastolic murmur, no rub, no S3 Gallop, no S4 Gallop - Gastrointestinal General gastrointestinal: normal bowel sounds, soft - Integumentary Integumentary: no rash - Neurologic Neurologic: CNII-XII intact - Musculoskeletal Musculoskeletal: gait normal, strength equal bilaterally - Psychiatric Psychiatric: Sedated - Labs CBC & Chem 7: 03/08/18 10:40 03/08/18 10:40 Labs: Abnormal Lab Results - Last 24 Hours (Table) 03/06/18 03/06/18 03/07/18 Range/Units 08:22 15:36 11:51 WBC (3.8-10.6) k/uL RBC (3.80-5.40) m/uL Hgb (11.4-16.0) gm/dL Hct (34.0-46.0) % MCHC (31.0-37.0) g/dL RDW (11.5-15.5) % Plt Count (150-450) k/uL Neutrophils # (Manual) (1.3-7.7) k/uL Lymphocytes # (Manual) (1.0-4.8) k/uL Monocytes # (Manual) (0-1.0) k/uL Nucleated RBCs (0-0) /100 WBC Sodium (137-145) mmol/L Potassium (3.5-5.1) mmol/L Chloride (98-107) mmol/L Carbon Dioxide (22-30) mmol/L BUN (7-17) mg/dL Creatinine (0.52-1.04) mg/dL Glucose (74-99) mg/dL POC Glucose (mg/dL) 120 H (75-99) mg/dL Plasma Lactic Acid Surya (0.7-2.0) mmol/L Calcium (8.4-10.2) mg/dL Phosphorus (2.5-4.5) mg/dL Magnesium (1.6-2.3) mg/dL Iron 15 L (50-170) ug/dL Iron Saturation 5.32 L (12.00-45.00) Total Bilirubin (0.2-1.3) mg/dL AST (14-36) U/L ALT (9-52) U/L Alkaline Phosphatase (38-126) U/L Total Protein (6.3-8.2) g/dL Albumin (3.5-5.0) g/dL Amylase (30-110) U/L Lipase (23-300) U/L Procalcitonin 0.20 H (0.02-0.09) ng/mL 03/07/18 03/07/18 03/08/18 Range/Units 16:53 20:48 04:52 WBC (3.8-10.6) k/uL RBC (3.80-5.40) m/uL Hgb (11.4-16.0) gm/dL Hct (34.0-46.0) % MCHC (31.0-37.0) g/dL RDW (11.5-15.5) % Plt Count (150-450) k/uL Neutrophils # (Manual) (1.3-7.7) k/uL Lymphocytes # (Manual) (1.0-4.8) k/uL Monocytes # (Manual) (0-1.0) k/uL Nucleated RBCs (0-0) /100 WBC Sodium (137-145) mmol/L Potassium (3.5-5.1) mmol/L Chloride (98-107) mmol/L Carbon Dioxide (22-30) mmol/L BUN (7-17) mg/dL Creatinine (0.52-1.04) mg/dL Glucose (74-99) mg/dL POC Glucose (mg/dL) 158 H 161 H 53 L (75-99) mg/dL Plasma Lactic Acid Surya (0.7-2.0) mmol/L Calcium (8.4-10.2) mg/dL Phosphorus (2.5-4.5) mg/dL Magnesium (1.6-2.3) mg/dL Iron (50-170) ug/dL Iron Saturation (12.00-45.00) Total Bilirubin (0.2-1.3) mg/dL AST (14-36) U/L ALT (9-52) U/L Alkaline Phosphatase (38-126) U/L Total Protein (6.3-8.2) g/dL Albumin (3.5-5.0) g/dL Amylase (30-110) U/L Lipase (23-300) U/L Procalcitonin (0.02-0.09) ng/mL 03/08/18 03/08/18 03/08/18 Range/Units 05:01 05:42 05:42 WBC 27.5 H (3.8-10.6) k/uL RBC 3.42 L (3.80-5.40) m/uL Hgb 9.9 L (11.4-16.0) gm/dL Hct 32.3 L (34.0-46.0) % MCHC 30.6 L (31.0-37.0) g/dL RDW 16.1 H (11.5-15.5) % Plt Count 80 L D (150-450) k/uL Neutrophils # (Manual) 25.58 H (1.3-7.7) k/uL Lymphocytes # (Manual) 0.55 L (1.0-4.8) k/uL Monocytes # (Manual) 1.38 H (0-1.0) k/uL Nucleated RBCs 2 H (0-0) /100 WBC Sodium 128 L (137-145) mmol/L Potassium 6.1 H* (3.5-5.1) mmol/L Chloride 94 L (98-107) mmol/L Carbon Dioxide 10 L (22-30) mmol/L BUN 63 H (7-17) mg/dL Creatinine (0.52-1.04) mg/dL Glucose 145 H (74-99) mg/dL POC Glucose (mg/dL) 261 H (75-99) mg/dL Plasma Lactic Acid Surya (0.7-2.0) mmol/L Calcium 8.2 L (8.4-10.2) mg/dL Phosphorus 9.4 H* (2.5-4.5) mg/dL Magnesium 2.8 H (1.6-2.3) mg/dL Iron (50-170) ug/dL Iron Saturation (12.00-45.00) Total Bilirubin 5.3 H (0.2-1.3) mg/dL AST (14-36) U/L ALT (9-52) U/L Alkaline Phosphatase 133 H (38-126) U/L Total Protein 5.6 L (6.3-8.2) g/dL Albumin 3.0 L (3.5-5.0) g/dL Amylase 114 H (30-110) U/L Lipase 1053 H (23-300) U/L Procalcitonin (0.02-0.09) ng/mL 03/08/18 03/08/18 03/08/18 Range/Units 05:42 07:24 08:12 WBC (3.8-10.6) k/uL RBC (3.80-5.40) m/uL Hgb (11.4-16.0) gm/dL Hct (34.0-46.0) % MCHC (31.0-37.0) g/dL RDW (11.5-15.5) % Plt Count (150-450) k/uL Neutrophils # (Manual) (1.3-7.7) k/uL Lymphocytes # (Manual) (1.0-4.8) k/uL Monocytes # (Manual) (0-1.0) k/uL Nucleated RBCs (0-0) /100 WBC Sodium (137-145) mmol/L Potassium (3.5-5.1) mmol/L Chloride (98-107) mmol/L Carbon Dioxide (22-30) mmol/L BUN (7-17) mg/dL Creatinine 3.46 H (0.52-1.04) mg/dL Glucose (74-99) mg/dL POC Glucose (mg/dL) 117 H (75-99) mg/dL Plasma Lactic Acid Surya 12.0 H* (0.7-2.0) mmol/L Calcium (8.4-10.2) mg/dL Phosphorus (2.5-4.5) mg/dL Magnesium (1.6-2.3) mg/dL Iron (50-170) ug/dL Iron Saturation (12.00-45.00) Total Bilirubin (0.2-1.3) mg/dL AST >7500 H (14-36) U/L ALT 6130 H (9-52) U/L Alkaline Phosphatase (38-126) U/L Total Protein (6.3-8.2) g/dL Albumin (3.5-5.0) g/dL Amylase (30-110) U/L Lipase (23-300) U/L Procalcitonin (0.02-0.09) ng/mL Microbiology - Last 24 Hours (Table) 03/06/18 08:22 Blood Culture - Preliminary Blood No Growth after 24 hours Assessment and Plan Plan: #1 acute on chronic hypoxic respiratory failure secondary to acute on chronic systolic heart failure, pulmonary edema, intermediate for pulmonary embolism, mild intermittent asthma without exacerbation. Patient had further decline of her respiratory status and required intubation and mechanical ventilation. Decrease Lasix to 40 mg IV daily, continue Solu-Medrol 40 every 8 hr, monitor input and output and daily weight. Continue DuoNeb as needed for shortness of breath. His condition unlikely to be secondary to pneumonia as consolidation seemed though patient is producing phlegm. Pro-calcitonin ordered. Pulmonary consult #2 acute kidney injury with CKD3, metabolic acidosis and hyperkalemia. Nephrology consult. #3 acute transaminitis with increase in alkaline phosphatase. Ultrasound abdomen reveals acute on chronic cholecystitis. Hepatic congestion likely secondary to CHF #4 acute on chronic systolic heart failure with known ejection fraction noted to be 30-35% in January 2018, status post AICD which was interrogated in January 2018. Repeat echocardiogram. Off IV Lasix. Cardiology consult appreciated. #5 cardiogenic shock with multiorgan failure requiring intubation and mechanical ventilation, vasopressors support. Patient is managed in the intensive care unit by Dr. Lang. Consult with nephrology added for acute kidney injury. Patient is currently on sodium bicarb drip, dobutamine drip and norepinephrine drip. #6. Paroxysmal Atrial fibrillation on xarelto rate controlled currently in sinus rhythm. #7 QT prolongation watch for QT prolongation medication avoid Zofran, levofloxacin and other, and QT prolonging medications . #8 hematemesis versus hemoptysis appears chronic. Continue Protonix V/Q scan ordered to rule out PE #9 recurrent depression continue citalopram 40 mg by mouth daily at bedtime #10 gout stable continue allopurinol #11 generalized anxiety disorder continue Xanax 0.5 daily 1 mg at bedtime #12 DVT prophylaxis patient on xarelto #13 GI prophylaxis with Protonix #14 history of mild intermittent asthma, no documented history of COPD. #15. Thrombocytopenia due to shock. CODE STATUS full code Discharge plan: To be determined Impression and plan of care have been directed as dictated by the signing physician. Nancy Olivera nurse practitioner acting as scribe for signing physician.
[2018-03-08] MEDS: METOPROLOL SUCCINATE (ER) 25 MG TAB.ER.24H PO SCH (13:51)
[2018-03-08] MEDS: guaiFENesin 600 MG TABLET.ER PO SCH ×2 (13:51→21:24)
[2018-03-08] MEDS: ASPIRIN 81 MG PO SCH (13:51)
[2018-03-08] MEDS: ALLOPURINOL 100 MG TAB PO SCH (13:51)
[2018-03-08] MEDS: SENNOSIDES-DOCUSATE SODIUM 1 EACH TAB PO SCH ×2 (13:51→20:56)
[2018-03-08] MEDS: POTASSIUM CHLORIDE ER 20 MEQ TAB.ER PO SCH (13:52)
[2018-03-08] MEDS: NITROGLYCERIN OINT 1 INCH/GM PACKET TOPICAL SCH ×3 (13:54→23:46)
[2018-03-08] MEDS: PANTOPRAZOLE 40 MG/10 ML VIAL IVP SCH (14:01)
[2018-03-08] MEDS: CHLORHEXIDINE GLUCONATE 15 ML CUP MUCOUS MEM SCH ×2 (14:01→21:24)
[2018-03-08 14:18] LABS: Amorphous Sediment,Urine Rare /hpf; Appearance,Urine Cloudy (Clear); Bacteria,Urine Rare /hpf; Bilirubin,Urine Negative (Negative); Blood,Urine Moderate (Negative); Color,Urine Yellow; Glucose,Urine (UA) Negative (Negative); Ketones,Urine Negative (Negative); Leukocyte Esterase,Urine Small (Negative); Mucus,Urine Rare /hpf; Nitrite,Urine Negative (Negative); PH, Urine 5.5 (5.0-8.0); Protein,Urine 1+ (Negative); RBC,Urine 14 /hpf (0-5); Specific Gravity,Urine 1.014 (1.001-1.035); Urobilinogen,Urine <2.0 mg/dL (<2.0); WBC,Urine 17 /hpf (0-5)
[2018-03-08 15:56] LABS: Glucose,Whole Blood 194 mg/dL (75-99)
[2018-03-08 16:00] LABS: Hemoglobin A1C 5.4 % (4.0-6.0)
[2018-03-08 16:19] LABS: Anisocytosis Slight; Hypochromasia Moderate; MCH 28.4 pg (25.0-35.0); MCHC 31.6 g/dL (31.0-37.0); MCV 89.8 fL (80.0-100.0); Mean Platelet Volume 9.8; RBC 2.08 m/uL (3.80-5.40); RDW 16.4 % (11.5-15.5)
[2018-03-08 16:21] LABS: HCT 18.7 % (34.0-46.0)
[2018-03-08 16:23] LABS: HGB 5.9 gm/dL (11.4-16.0)
[2018-03-08 16:30] LABS: Prothrombin Time 49.6 sec (9.0-12.0)
[2018-03-08 16:35] LABS: INR 5.5 (<1.2)
[2018-03-08 16:46] LABS: Creatine Kinase MB 13.2 ng/mL (0.0-2.4)
[2018-03-08 16:48] LABS: Band Neutrophils % 2 %; Lymphocytes # (M) 0.73 k/uL (1.0-4.8); Monocytes # (M) 0.29 k/uL (0-1.0); Neutrophils % (M) 93 %; Nucleated Red Blood Cells 2 /100 WBC (0-0); Platelet Count 69 k/uL (150-450); Poikilocytosis (M) Present; Polychromasia Present; Target Cells Present; Total Cells Counted 200; WBC 14.6 k/uL (3.8-10.6)
[2018-03-08 16:57] LABS: Albumin 2.6 g/dL (3.5-5.0); Calcium 7.5 mg/dL (8.4-10.2); Potassium 4.5 mmol/L (3.5-5.1); Total Protein 4.8 g/dL (6.3-8.2)
--- NOTE | 2018-03-08 17:16 | P.PN ---
Subjective Progress Note Date: 03/08/18 Principal diagnosis: Cholecystitis Patient was transferred to the ICU from [facility] because of hemodynamic instability. Patient was placed on the ventilator earlier today. Her liver enzymes were noted to increase further. Patient is showing signs of multiorgan dysfunction currently. Per the nursing staff earlier today the patient was not having significant abdominal pain. Liver enzymes and acidosis have improved slightly. Objective - Vital Signs Vital signs: Vital Signs Temp 97.7 F 03/08/18 16:00 Pulse 109 H 03/08/18 17:00 Resp 28 H 03/08/18 17:00 BP 108/59 03/08/18 15:08 Pulse Ox 97 03/08/18 17:00 Intake & Output 03/07/18 03/08/18 03/08/18 18:59 06:59 18:59 Intake Total 310 610.018 1490.26 Output Total 375 422 Balance 310 448.894 3390.26 Weight 79.2 kg 82.8 kg Intake: IV 520 3187.26 0.9 bolus 500 2000 DOBUTamine DRIP 500 mg In 37.26 Dextrose/Water 1 250ml. bag @ 2.5 MCG/KG/MIN 6.21 mls/hr IV .Q24H [facility] Rx#: [id number] Dextrose 5% in Water 1, 600 000 ml @ 100 mls/hr IV . [id number] ONE with Sodium Bicarb (1 Meq/ml) 150 ml Rx#:[id number] Meropenem 2 gm In Sodium 100 Chloride 0.9% 100 ml @ 200 mls/hr IVPB ONCE STA Rx#:[id number] Sodium Chloride 0.9% 1, 20 200 000 ml @ 20 mls/hr IV . Q24H [facility] Rx#:[id number] Vancomycin 1,500 mg In 250 Sodium Chloride 0.9% 250 ml @ 125 mls/hr IVPB ONCE STA Rx#:[id number] Intake, IV Titration 190 297.608 50 Amount Amiodarone 450 mg In 212.358 Dextrose 5% in Water 250 ml @ 1 MG/MIN 34.53 mls/ hr IV .Q7H31M [facility] Rx#: [id number] Norepinephrine 4 mg In 85.250 Sodium Chloride 0.9% 250 ml @ Titrate IV .Q0M [facility] Rx#:[id number] Phytonadione 10 mg In 50 Sodium Chloride 0.9% 50 ml @ 100 mls/hr IVPB ONCE STA Rx#:[id number] Piperacillin-Tazobactam 3 50 .375 gm In Dextrose/Water 1 50ml.bag @ 12.5 mls/hr IVPB Q8H [facility] Rx#: [id number] Sodium Chloride 0.9% 1, 140 000 ml @ 20 mls/hr IV . Q24H [facility] Rx#:[id number] Oral 120 Blood Product 1339 Ffp 24 Cp2d Unit 0 [id number] Ffp 24 Cp2d Unit 0 [id number] Ffp 24 Cpd Unit 274 [id number] Ffp 24 Cpd Unit 0 [id number] Output: Urine 375 422 Other: Voiding Method Indwelling Catheter # Voids 1 2 ABP, PAP, CO, CI - Last Documented Arterial Blood Pressure 104/52 - Exam Soft, mild distention, nontender - Labs CBC & Chem 7: 03/08/18 16:00 03/08/18 10:40 Labs: Abnormal Lab Results - Last 24 Hours (Table) 03/07/18 03/08/18 03/08/18 Range/Units 20:48 04:52 05:01 WBC (3.8-10.6) k/uL RBC (3.80-5.40) m/uL Hgb (11.4-16.0) gm/dL Hct (34.0-46.0) % MCHC (31.0-37.0) g/dL RDW (11.5-15.5) % Plt Count (150-450) k/uL Neutrophils # (Manual) (1.3-7.7) k/uL Lymphocytes # (Manual) (1.0-4.8) k/uL Monocytes # (Manual) (0-1.0) k/uL Nucleated RBCs (0-0) /100 WBC PT (9.0-12.0) sec INR (<1.2) ABG pH (7.35-7.45) ABG pCO2 (35-45) mmHg ABG pO2 (83-108) mmHg ABG HCO3 (21-25) mmol/L ABG Total CO2 (19-24) mmol/L ABG O2 Saturation (94-97) % ABG Lactic Acid (0.5-1.6) mmol/L Sodium (137-145) mmol/L Potassium (3.5-5.1) mmol/L Chloride (98-107) mmol/L Carbon Dioxide (22-30) mmol/L BUN (7-17) mg/dL Creatinine (0.52-1.04) mg/dL Glucose (74-99) mg/dL POC Glucose (mg/dL) 161 H 53 L 261 H (75-99) mg/dL Plasma Lactic Acid Surya (0.7-2.0) mmol/L Calcium (8.4-10.2) mg/dL Phosphorus (2.5-4.5) mg/dL Magnesium (1.6-2.3) mg/dL Total Bilirubin (0.2-1.3) mg/dL AST (14-36) U/L ALT (9-52) U/L Alkaline Phosphatase (38-126) U/L Total Creatine Kinase (30-135) U/L CK-MB (CK-2) (0.0-2.4) ng/mL Total Protein (6.3-8.2) g/dL Albumin (3.5-5.0) g/dL Amylase (30-110) U/L Lipase (23-300) U/L Urine Appearance (Clear) Urine Protein (Negative) Urine Blood (Negative) Ur Leukocyte Esterase (Negative) Urine RBC (0-5) /hpf Urine WBC (0-5) /hpf Amorphous Sediment (None) /hpf Urine Bacteria (None) /hpf Urine Mucus (None) /hpf 03/08/18 03/08/18 03/08/18 Range/Units 05:42 05:42 05:42 WBC 27.5 H (3.8-10.6) k/uL RBC 3.42 L (3.80-5.40) m/uL Hgb 9.9 L (11.4-16.0) gm/dL Hct 32.3 L (34.0-46.0) % MCHC 30.6 L (31.0-37.0) g/dL RDW 16.1 H (11.5-15.5) % Plt Count 80 L D (150-450) k/uL Neutrophils # (Manual) 25.58 H (1.3-7.7) k/uL Lymphocytes # (Manual) 0.55 L (1.0-4.8) k/uL Monocytes # (Manual) 1.38 H (0-1.0) k/uL Nucleated RBCs 2 H (0-0) /100 WBC PT (9.0-12.0) sec INR (<1.2) ABG pH (7.35-7.45) ABG pCO2 (35-45) mmHg ABG pO2 (83-108) mmHg ABG HCO3 (21-25) mmol/L ABG Total CO2 (19-24) mmol/L ABG O2 Saturation (94-97) % ABG Lactic Acid (0.5-1.6) mmol/L Sodium 128 L (137-145) mmol/L Potassium 6.1 H* (3.5-5.1) mmol/L Chloride 94 L (98-107) mmol/L Carbon Dioxide 10 L (22-30) mmol/L BUN 63 H (7-17) mg/dL Creatinine (0.52-1.04) mg/dL Glucose 145 H (74-99) mg/dL POC Glucose (mg/dL) (75-99) mg/dL Plasma Lactic Acid Surya 12.0 H* (0.7-2.0) mmol/L Calcium 8.2 L (8.4-10.2) mg/dL Phosphorus 9.4 H* (2.5-4.5) mg/dL Magnesium 2.8 H (1.6-2.3) mg/dL Total Bilirubin 5.3 H (0.2-1.3) mg/dL AST (14-36) U/L ALT (9-52) U/L Alkaline Phosphatase 133 H (38-126) U/L Total Creatine Kinase (30-135) U/L CK-MB (CK-2) (0.0-2.4) ng/mL Total Protein 5.6 L (6.3-8.2) g/dL Albumin 3.0 L (3.5-5.0) g/dL Amylase 114 H (30-110) U/L Lipase 1053 H (23-300) U/L Urine Appearance (Clear) Urine Protein (Negative) Urine Blood (Negative) Ur Leukocyte Esterase (Negative) Urine RBC (0-5) /hpf Urine WBC (0-5) /hpf Amorphous Sediment (None) /hpf Urine Bacteria (None) /hpf Urine Mucus (None) /hpf 03/08/18 03/08/18 03/08/18 Range/Units 07:24 08:12 10:30 WBC (3.8-10.6) k/uL RBC (3.80-5.40) m/uL Hgb (11.4-16.0) gm/dL Hct (34.0-46.0) % MCHC (31.0-37.0) g/dL RDW (11.5-15.5) % Plt Count (150-450) k/uL Neutrophils # (Manual) (1.3-7.7) k/uL Lymphocytes # (Manual) (1.0-4.8) k/uL Monocytes # (Manual) (0-1.0) k/uL Nucleated RBCs (0-0) /100 WBC PT (9.0-12.0) sec INR (<1.2) ABG pH 7.28 L (7.35-7.45) ABG pCO2 27 L (35-45) mmHg ABG pO2 394 H (83-108) mmHg ABG HCO3 13 L (21-25) mmol/L ABG Total CO2 14 L (19-24) mmol/L ABG O2 Saturation 99.3 H (94-97) % ABG Lactic Acid (0.5-1.6) mmol/L Sodium (137-145) mmol/L Potassium (3.5-5.1) mmol/L Chloride (98-107) mmol/L Carbon Dioxide (22-30) mmol/L BUN (7-17) mg/dL Creatinine 3.46 H (0.52-1.04) mg/dL Glucose (74-99) mg/dL POC Glucose (mg/dL) 117 H (75-99) mg/dL Plasma Lactic Acid Surya (0.7-2.0) mmol/L Calcium (8.4-10.2) mg/dL Phosphorus (2.5-4.5) mg/dL Magnesium (1.6-2.3) mg/dL Total Bilirubin (0.2-1.3) mg/dL AST >7500 H (14-36) U/L ALT 6130 H (9-52) U/L Alkaline Phosphatase (38-126) U/L Total Creatine Kinase (30-135) U/L CK-MB (CK-2) (0.0-2.4) ng/mL Total Protein (6.3-8.2) g/dL Albumin (3.5-5.0) g/dL Amylase (30-110) U/L Lipase (23-300) U/L Urine Appearance (Clear) Urine Protein (Negative) Urine Blood (Negative) Ur Leukocyte Esterase (Negative) Urine RBC (0-5) /hpf Urine WBC (0-5) /hpf Amorphous Sediment (None) /hpf Urine Bacteria (None) /hpf Urine Mucus (None) /hpf 03/08/18 03/08/18 03/08/18 Range/Units 10:40 10:40 10:40 WBC (3.8-10.6) k/uL RBC (3.80-5.40) m/uL Hgb (11.4-16.0) gm/dL Hct (34.0-46.0) % MCHC (31.0-37.0) g/dL RDW (11.5-15.5) % Plt Count (150-450) k/uL Neutrophils # (Manual) (1.3-7.7) k/uL Lymphocytes # (Manual) (1.0-4.8) k/uL Monocytes # (Manual) (0-1.0) k/uL Nucleated RBCs (0-0) /100 WBC PT >130.0 H (9.0-12.0) sec INR >10.0 H* (<1.2) ABG pH (7.35-7.45) ABG pCO2 (35-45) mmHg ABG pO2 (83-108) mmHg ABG HCO3 (21-25) mmol/L ABG Total CO2 (19-24) mmol/L ABG O2 Saturation (94-97) % ABG Lactic Acid 10.7 H* (0.5-1.6) mmol/L Sodium 133 L (137-145) mmol/L Potassium (3.5-5.1) mmol/L Chloride (98-107) mmol/L Carbon Dioxide 13 L (22-30) mmol/L BUN 61 H (7-17) mg/dL Creatinine 3.28 H (0.52-1.04) mg/dL Glucose 65 L (74-99) mg/dL POC Glucose (mg/dL) (75-99) mg/dL Plasma Lactic Acid Surya (0.7-2.0) mmol/L Calcium 7.2 L (8.4-10.2) mg/dL Phosphorus (2.5-4.5) mg/dL Magnesium (1.6-2.3) mg/dL Total Bilirubin 5.2 H (0.2-1.3) mg/dL AST 46678 H (14-36) U/L ALT 6198 H (9-52) U/L Alkaline Phosphatase (38-126) U/L Total Creatine Kinase (30-135) U/L CK-MB (CK-2) (0.0-2.4) ng/mL Total Protein 5.0 L (6.3-8.2) g/dL Albumin 2.6 L (3.5-5.0) g/dL Amylase (30-110) U/L Lipase (23-300) U/L Urine Appearance (Clear) Urine Protein (Negative) Urine Blood (Negative) Ur Leukocyte Esterase (Negative) Urine RBC (0-5) /hpf Urine WBC (0-5) /hpf Amorphous Sediment (None) /hpf Urine Bacteria (None) /hpf Urine Mucus (None) /hpf 03/08/18 03/08/18 03/08/18 Range/Units 10:40 10:40 10:54 WBC 19.8 H (3.8-10.6) k/uL RBC 2.93 L (3.80-5.40) m/uL Hgb 8.3 L D (11.4-16.0) gm/dL Hct 27.0 L (34.0-46.0) % MCHC 30.9 L (31.0-37.0) g/dL RDW 16.0 H (11.5-15.5) % Plt Count 71 L (150-450) k/uL Neutrophils # (Manual) 19.40 H (1.3-7.7) k/uL Lymphocytes # (Manual) (1.0-4.8) k/uL Monocytes # (Manual) (0-1.0) k/uL Nucleated RBCs 4 H (0-0) /100 WBC PT (9.0-12.0) sec INR (<1.2) ABG pH (7.35-7.45) ABG pCO2 (35-45) mmHg ABG pO2 (83-108) mmHg ABG HCO3 (21-25) mmol/L ABG Total CO2 (19-24) mmol/L ABG O2 Saturation (94-97) % ABG Lactic Acid (0.5-1.6) mmol/L Sodium (137-145) mmol/L Potassium (3.5-5.1) mmol/L Chloride (98-107) mmol/L Carbon Dioxide (22-30) mmol/L BUN (7-17) mg/dL Creatinine (0.52-1.04) mg/dL Glucose (74-99) mg/dL POC Glucose (mg/dL) 67 L (75-99) mg/dL Plasma Lactic Acid Surya (0.7-2.0) mmol/L Calcium (8.4-10.2) mg/dL Phosphorus (2.5-4.5) mg/dL Magnesium (1.6-2.3) mg/dL Total Bilirubin (0.2-1.3) mg/dL AST (14-36) U/L ALT (9-52) U/L Alkaline Phosphatase (38-126) U/L Total Creatine Kinase 1114 H* (30-135) U/L CK-MB (CK-2) 21.1 H (0.0-2.4) ng/mL Total Protein (6.3-8.2) g/dL Albumin (3.5-5.0) g/dL Amylase (30-110) U/L Lipase (23-300) U/L Urine Appearance (Clear) Urine Protein (Negative) Urine Blood (Negative) Ur Leukocyte Esterase (Negative) Urine RBC (0-5) /hpf Urine WBC (0-5) /hpf Amorphous Sediment (None) /hpf Urine Bacteria (None) /hpf Urine Mucus (None) /hpf 03/08/18 03/08/18 03/08/18 Range/Units 11:20 11:57 13:15 WBC (3.8-10.6) k/uL RBC (3.80-5.40) m/uL Hgb (11.4-16.0) gm/dL Hct (34.0-46.0) % MCHC (31.0-37.0) g/dL RDW (11.5-15.5) % Plt Count (150-450) k/uL Neutrophils # (Manual) (1.3-7.7) k/uL Lymphocytes # (Manual) (1.0-4.8) k/uL Monocytes # (Manual) (0-1.0) k/uL Nucleated RBCs (0-0) /100 WBC PT (9.0-12.0) sec INR (<1.2) ABG pH (7.35-7.45) ABG pCO2 (35-45) mmHg ABG pO2 (83-108) mmHg ABG HCO3 (21-25) mmol/L ABG Total CO2 (19-24) mmol/L ABG O2 Saturation (94-97) % ABG Lactic Acid (0.5-1.6) mmol/L Sodium (137-145) mmol/L Potassium (3.5-5.1) mmol/L Chloride (98-107) mmol/L Carbon Dioxide (22-30) mmol/L BUN (7-17) mg/dL Creatinine (0.52-1.04) mg/dL Glucose (74-99) mg/dL POC Glucose (mg/dL) 136 H 133 H (75-99) mg/dL Plasma Lactic Acid Surya (0.7-2.0) mmol/L Calcium (8.4-10.2) mg/dL Phosphorus (2.5-4.5) mg/dL Magnesium (1.6-2.3) mg/dL Total Bilirubin (0.2-1.3) mg/dL AST (14-36) U/L ALT (9-52) U/L Alkaline Phosphatase (38-126) U/L Total Creatine Kinase (30-135) U/L CK-MB (CK-2) (0.0-2.4) ng/mL Total Protein (6.3-8.2) g/dL Albumin (3.5-5.0) g/dL Amylase (30-110) U/L Lipase (23-300) U/L Urine Appearance Cloudy H (Clear) Urine Protein 1+ H (Negative) Urine Blood Moderate H (Negative) Ur Leukocyte Esterase Small H (Negative) Urine RBC 14 H (0-5) /hpf Urine WBC 17 H (0-5) /hpf Amorphous Sediment Rare H (None) /hpf Urine Bacteria Rare H (None) /hpf Urine Mucus Rare H (None) /hpf 03/08/18 03/08/18 03/08/18 Range/Units 13:25 13:35 15:55 WBC (3.8-10.6) k/uL RBC (3.80-5.40) m/uL Hgb (11.4-16.0) gm/dL Hct (34.0-46.0) % MCHC (31.0-37.0) g/dL RDW (11.5-15.5) % Plt Count (150-450) k/uL Neutrophils # (Manual) (1.3-7.7) k/uL Lymphocytes # (Manual) (1.0-4.8) k/uL Monocytes # (Manual) (0-1.0) k/uL Nucleated RBCs (0-0) /100 WBC PT (9.0-12.0) sec INR (<1.2) ABG pH (7.35-7.45) ABG pCO2 (35-45) mmHg ABG pO2 (83-108) mmHg ABG HCO3 (21-25) mmol/L ABG Total CO2 (19-24) mmol/L ABG O2 Saturation (94-97) % ABG Lactic Acid (0.5-1.6) mmol/L Sodium (137-145) mmol/L Potassium (3.5-5.1) mmol/L Chloride (98-107) mmol/L Carbon Dioxide (22-30) mmol/L BUN (7-17) mg/dL Creatinine (0.52-1.04) mg/dL Glucose (74-99) mg/dL POC Glucose (mg/dL) 139 H 194 H (75-99) mg/dL Plasma Lactic Acid Surya 10.7 H* (0.7-2.0) mmol/L Calcium (8.4-10.2) mg/dL Phosphorus (2.5-4.5) mg/dL Magnesium (1.6-2.3) mg/dL Total Bilirubin (0.2-1.3) mg/dL AST (14-36) U/L ALT (9-52) U/L Alkaline Phosphatase (38-126) U/L Total Creatine Kinase (30-135) U/L CK-MB (CK-2) (0.0-2.4) ng/mL Total Protein (6.3-8.2) g/dL Albumin (3.5-5.0) g/dL Amylase (30-110) U/L Lipase (23-300) U/L Urine Appearance (Clear) Urine Protein (Negative) Urine Blood (Negative) Ur Leukocyte Esterase (Negative) Urine RBC (0-5) /hpf Urine WBC (0-5) /hpf Amorphous Sediment (None) /hpf Urine Bacteria (None) /hpf Urine Mucus (None) /hpf 03/08/18 03/08/18 03/08/18 Range/Units 16:00 16:00 16:00 WBC 14.6 H (3.8-10.6) k/uL RBC 2.08 L (3.80-5.40) m/uL Hgb 5.9 L* D (11.4-16.0) gm/dL Hct 18.7 L* (34.0-46.0) % MCHC (31.0-37.0) g/dL RDW 16.4 H (11.5-15.5) % Plt Count 69 L (150-450) k/uL Neutrophils # (Manual) 13.80 H (1.3-7.7) k/uL Lymphocytes # (Manual) 0.73 L (1.0-4.8) k/uL Monocytes # (Manual) (0-1.0) k/uL Nucleated RBCs 2 H (0-0) /100 WBC PT 49.6 H (9.0-12.0) sec INR 5.5 H* (<1.2) ABG pH (7.35-7.45) ABG pCO2 (35-45) mmHg ABG pO2 (83-108) mmHg ABG HCO3 (21-25) mmol/L ABG Total CO2 (19-24) mmol/L ABG O2 Saturation (94-97) % ABG Lactic Acid (0.5-1.6) mmol/L Sodium (137-145) mmol/L Potassium (3.5-5.1) mmol/L Chloride (98-107) mmol/L Carbon Dioxide (22-30) mmol/L BUN (7-17) mg/dL Creatinine (0.52-1.04) mg/dL Glucose (74-99) mg/dL POC Glucose (mg/dL) (75-99) mg/dL Plasma Lactic Acid Surya (0.7-2.0) mmol/L Calcium (8.4-10.2) mg/dL Phosphorus (2.5-4.5) mg/dL Magnesium (1.6-2.3) mg/dL Total Bilirubin (0.2-1.3) mg/dL AST (14-36) U/L ALT (9-52) U/L Alkaline Phosphatase (38-126) U/L Total Creatine Kinase 825 H (30-135) U/L CK-MB (CK-2) 13.2 H (0.0-2.4) ng/mL Total Protein (6.3-8.2) g/dL Albumin (3.5-5.0) g/dL Amylase (30-110) U/L Lipase (23-300) U/L Urine Appearance (Clear) Urine Protein (Negative) Urine Blood (Negative) Ur Leukocyte Esterase (Negative) Urine RBC (0-5) /hpf Urine WBC (0-5) /hpf Amorphous Sediment (None) /hpf Urine Bacteria (None) /hpf Urine Mucus (None) /hpf Microbiology - Last 24 Hours (Table) 03/08/18 10:40 Urine Culture - Preliminary Urine,Catheterized 03/08/18 11:12 Sputum Culture - Preliminary Sputum 03/06/18 08:22 Blood Culture - Preliminary Blood No Growth after 48 hours Assessment and Plan (1) Cholecystitis Narrative/Plan: Patient with ongoing evidence of global hyperperfusion. Etiology most likely on the basis of cardiogenic shock although sepsis has not been excluded. Patient is significantly coagulopathic. [place] catheter was not placed partly for that reason I believe. Continue supportive care. No surgical intervention at this time. We'll follow. Case was discussed with the patient's son and [id number] at the bedside. Current Visit: Yes Status: Acute Code(s): K81.9 - CHOLECYSTITIS, UNSPECIFIED SNOMED Code(s): 07734646
--- NOTE | 2018-03-08 18:44 | XR ---
EXAMINATION: XR chest 1V portable DATE AND TIME: 03/08/2018 5:59 PM CLINICAL INDICATION: rule out subq emphysema TECHNIQUE: AP portable semiupright COMPARISON: 03/08/2018 at 10:15 AM FINDINGS: Right IJ catheter has the same appearance as seen on the prior study, having its tip superimposed ove r the expected position of the proximal right axillary vein. ET tube tip superimposing the mid trachea. NG tube present, coursing to have its tip superimposed over the gastric fundus. Cardiac pacemaker and EKG leads noted. This radiograph is in the semiupright position; there is no evident pneumothorax on this semiupright view. There remains complete silhouetting of the left hemidiaphragm consistent with airlessness within the left lower lobe, seen on the prior study. Remainder of the lungs clear well-expanded bilaterally. That is, no new pleural-parenchymal process. Cardiomediastinal silhouette and bones and soft tissues have similar appearance. There is no soft tissue emphysema evident. IMPRESSION: RIGHT IJ CATHETER PLACEMENT HAS NOT CHANGED SINCE THE PRIOR STUDY.
--- NOTE | 2018-03-08 20:08 | CONS ---
CONSULTATION REASON FOR CONSULT: Renal failure. HISTORY OF PRESENT ILLNESS: Patient is a 72-year-old female who was initially admitted to the hospital on 03/06/2018 with complaints of shortness of breath. She was recently admitted prior to this admission for bilateral pneumonia. The patient had been on antibiotics. During this admission, patient was being treated for CHF exacerbation and was being diuresed. Yesterday she had an episode of cardiac arrhythmia and tachycardia which she actually had atrial fibrillation with rapid ventricular response. The patient converted to normal sinus rhythm with amiodarone. Later on during the day, patient became more hypotensive and was transferred to the ICU. She has been started on Levophed, which is up to about 30 mcg. The patient was significantly hypotensive. Her lactic acid was elevated at 12. She has been resuscitated with fluids and has received 2 L of fluid bolus. Patient's serum creatinine is up to 3.0 mg/dL. It was at 1.6 mg/dL on initial admission. It did peak to 3.46 early this morning. The urine output was initially low, however, seems to have picked up now. Hemoglobin was noted to be at 5.9 g/dL this evening, earlier it was 9.7 g/dL. The patient's potassium was also elevated at 6.1. The patient was eventually intubated this morning. PAST MEDICAL HISTORY: Significant for atrial fibrillation, hypertension, pneumonia, a recent pneumonia, history of syncope, gastroesophageal reflux disease, history of ESBL E coli urinary tract infection in June of 2016, chronic anxiety. PAST SURGICAL HISTORY: AICD placement, hysterectomy, tubal ligation, left carotid endarterectomy. SOCIAL HISTORY: Patient is a former smoker. No history of drug abuse or alcohol abuse. REVIEW OF SYSTEMS: Cannot be obtained from patient, however, upon chart review, there does not appear to be any active bleeding as of this morning. Patient is on the vent. She has no open wounds. MEDICATIONS: Prior to admission included Zantac, Xarelto, aspirin, potassium, spironolactone, Demadex, Xanax, Zyloprim, Toprol. ALLERGIES: Include KEFLEX, LEVAQUIN, LISINOPRIL, MORPHINE, COUMADIN, NORCO, CODEINE, TORADOL. PHYSICAL EXAMINATION: Patient is currently sedated. She is on the vent. She is comfortable. Blood pressure this morning was 103/52, heart rate of 80 per minute. She is afebrile. Examination of the heart S1, S2. Examination lungs bilateral breath sounds are heard. Abdomen is soft, nontender. Examination lower extremity shows no obvious edema. MIME ARTIST exam cannot be performed. LABS: This morning showed a sodium of 133, potassium 5.1, BUN 61, serum creatinine 3.28. Total CK was 1114, albumin 2.6. ALT and AST were elevated at 6198 and 63891. Hemoglobin earlier was 8.3. ASSESSMENT: 1. Acute kidney injury secondary to hypotension hypoperfusion and shock initially oliguric, currently nonoliguric with good urine output. Continue with the IV fluids. I will change the IV fluids to IV bicarb. 2. Severe metabolic acidosis secondary to lactic acidosis, shock, renal failure. Start IV bicarb which will also help with the hyperkalemia. 3. Hyperkalemia associated with acute kidney injury and most likely underlying GI bleed given the significant drop in the hemoglobin. 4. Shock liver with elevated liver enzymes secondary to hypotension and hypoperfusion. 5. Cardiomyopathy with ejection fraction 20-25 percent with severely dilated left atrium and severe pulmonary hypertension, severe tricuspid regurgitation and mitral regurgitation. 6. Coagulopathy. The patient was on Xarelto at home. Currently, she is not on any anticoagulation. PLAN: Continue IV fluids. Continue empiric antibiotics. Transfuse packed RBCs and avoid nephrotoxic agents. Surgery is on consult. Continue IV hydration. Repeat labs in a.m. MMLUIS MIGUELL / JESSICAN: [id number] /
[2018-03-08 20:46] LABS: Glucose,Whole Blood 145 mg/dL (75-99)
[2018-03-08] MEDS: CITALOPRAM HYDROBROMIDE 20 MG TAB PO SCH (20:57)
[2018-03-08 23:33] LABS: Glucose,Whole Blood 166 mg/dL (75-99)
[2018-03-09] MEDS: PROPOFOL 1,000 MG in EMPTY BAG 1 BAG IV SCH ×5 (00:33→19:58)
[2018-03-09] MEDS: IPRATROPIUM-ALBUTEROL 3 ML NEB INHALATION SCH ×6 (00:59→20:04)
[2018-03-09] MEDS ORDERED: DEXTROSE 5% IN WATER 1,000 ML with SODIUM BICARB (1 MEQ/ML) 150 ML IV SCH (02:30)
[2018-03-09 02:55] LABS: Prothrombin Time 48.1 sec (9.0-12.0)
[2018-03-09 03:11] LABS: INR 5.3 (<1.2)
[2018-03-09 03:14] LABS: Albumin 2.5 g/dL (3.5-5.0); Calcium 7.2 mg/dL (8.4-10.2); Magnesium 2.1 mg/dL (1.6-2.3); Phosphorus 4.3 mg/dL (2.5-4.5); Potassium 3.1 mmol/L (3.5-5.1); Total Bilirubin 4.4 mg/dL (0.2-1.3); Total Protein 4.7 g/dL (6.3-8.2)
[2018-03-09] MEDS ORDERED: Potassium Replacement Protocol 1 EACH MISC MISCELLANE PRN (03:33)
[2018-03-09 03:45] LABS: HCT 24.8 % (34.0-46.0); MCH 29.4 pg (25.0-35.0); MCHC 33.1 g/dL (31.0-37.0); Mean Platelet Volume 9.2; Poikilocytosis Slight; RBC 2.79 m/uL (3.80-5.40); RDW 15.9 % (11.5-15.5)
[2018-03-09 03:45] LABS: Glucose,Whole Blood 140 mg/dL (75-99)
[2018-03-09 03:48] LABS: HGB 8.2 gm/dL (11.4-16.0); Platelet Count 94 k/uL (150-450)
[2018-03-09] MEDS: POTASSIUM BICARBONATE/CIT AC 20 MEQ TABLET.EFF NG-TUBE SCH ×2 (03:54→05:05)
[2018-03-09] MEDS: INSULIN ASPART 100 UNIT/ML 1 ML 10 ML VIAL SQ SCH ×5 (04:00→19:58)
[2018-03-09 04:06] LABS: Band Neutrophils % 4 %; Lymphocytes # (M) 0.44 k/uL (1.0-4.8); Monocytes # (M) 0.15 k/uL (0-1.0); Neutrophils % (M) 92 %; Nucleated Red Blood Cells 8 /100 WBC (0-0); Total Cells Counted 200; WBC 14.7 k/uL (3.8-10.6)
[2018-03-09 04:07] LABS: Anisocytosis (M) Present; Polychromasia Present
[2018-03-09 04:11] LABS: Large Platelets Present; Poikilocytosis (M) Present
[2018-03-09] MEDS ORDERED: POTASSIUM CHLORIDE 20 MEQ in WATER FOR INJECTION 1 100ML.BAG IVPB STA (05:33)
[2018-03-09 05:46] LABS: ABG Base Excess 7.2 mmol/L; ABG HCO3 27 mmol/L (21-25); ABG Oxygen Saturation 95.8 % (94-97); ABG PCO2 22 mmHg (35-45); ABG PO2 64 mmHg (83-108); ABG TCO2 28 mmol/L (19-24)
[2018-03-09 05:47] LABS: ABG PH 7.69 (7.35-7.45)
[2018-03-09 06:51] LABS: Glucose,Whole Blood 152 mg/dL (75-99)
[2018-03-09 07:20] LABS: ABG Base Excess 6.8 mmol/L; ABG HCO3 29 mmol/L (21-25); ABG Oxygen Saturation 98.2 % (94-97); ABG PCO2 35 mmHg (35-45); ABG PH 7.54 (7.35-7.45); ABG PO2 94 mmHg (83-108); ABG TCO2 31 mmol/L (19-24)
[2018-03-09 07:35] LABS: Glucose,Whole Blood 155 mg/dL (75-99)
--- NOTE | 2018-03-09 07:56 | XR ---
EXAMINATION TYPE: XR chest 1V DATE OF EXAM: 03/09/2018 COMPARISON: 03/08/2018 HISTORY: 72-year-old female shortness of breath TECHNIQUE: Single frontal view of the chest is obtained. FINDINGS: ET tube satisfactory with tip just below the level of the medial clavicular heads. NG tube courses be low the diaphragm. Right IJ CVC redemonstrated. The tip is malpositioned deviating laterally into the region of the axillary vein. Heart now mildly enlarged. Left anterior chest wall AICD generator with right atrial, right ventricul ar, and coronary sinus leads. Increasing bibasilar densities and interstitial densities. More focal c hronic upper lung densities could represent scarring and should be reassessed at follow-up. IMPRESSION: 1. Right IJ CVC remains malpositioned with tip deviating off to the right in the region of the axilla ry vein. Appropriate repositioning recommended. 2. Now mild cardiomegaly with increasing interstitial changes and enlarging small to moderate pleural effusions with adjacent atelectasis and/or consolidation. Correlate for CHF as an etiology.
[2018-03-09] MEDS: DEXTROSE 5%-0.9% NACL 1,000 ML IV SCH (08:07)
--- NOTE | 2018-03-09 08:12 | P.PN ---
Subjective Progress Note Date: 03/09/18 This is 72-year-old white female patient of Dr. Crowell, who presented to the emergency department when 03/06/2018 were evaluation of shortness of breath , cough with yellow sputum production. Patient denied any fever or chills, denied any chest pain. Past medical history is positive for hypertension, ischemic cardiomyopathy status post AICD placement with EF of 30-35%, atrial fibrillation, congestive heart failure, anxiety, depression, carotid stenosis, GERD, and previous episodes of pneumonia. Patient was recently hospitalized in February, for bilateral lower lobe pneumonia, in addition to a CHF exacerbation. She did require admission to the intensive care unit, she was treated with accommodation of Zosyn and vancomycin. She improved, was discharged home. On arrival to the emergency department patient was significantly dyspneic, she was given breathing treatments. Reports difficulty breathing with exertion, and some orthopnea. She was also complaining of right shoulder pain, denies any falls or trauma. She reports dry cough, no peripheral swelling. Significant weight gain. X-ray was completed in the emergency department and showed cardiomegaly and COPD. EKG showed normal sinus rhythm without acute ST/T-wave abnormalities. Lab work was done, and was negative for any evidence of leukocytosis, WBC is 8.9, hemoglobin is 10.3, INR was 2.5, d-dimer was elevated to 4.28, sodium is 135, B1 is 40, creatinine is 1.6. Patient's AST was 1448, and ALT was 1090, and with alkaline phosphatase at 170. ProBNP was 18,300, and troponins were 0.027, 0.024, 0.034. VQ scan was obtained, which showed intermediate probability of pulmonary embolism, chest x-ray on 03/06/2018 showed congestive heart failure. Patient is normally on home oxygen at 2 L per nasal cannula. She is a history of smoking, she quit smoking in 1997, prior to that smoked a pack a day for 20 years. She denies any history of COPD. She was supposed to see Dr. Lang in follow-up in the office this week. Patient was started on IV diuretics, she did receive IV Solu- Medrol, nebulized bronchodilators and empiric antibiotics.. She is diuresing. On today's exam, she is feeling better, breathing easier. No wheezing, no significant coughing, chest congestion or sputum production. Remains afebrile, denies any chest pain, worsening shortness of breath. On 03/08/2018, the patient is being seen in the intensive care unit. Condition decompensated significantly overnight. The patient became progressively more hypotensive and lethargic and and around 4:30 AM a emergency calls was made to the A team and the patient was found to be severely acidotic him a essentially lactic acidosis and the lactic acid level was 12. The patient was oliguric/ anuric and producing minimal amount of urine output. Potassium level was at 6.1. Creatinine was up to 3.4. There had been further increase in the liver function test and an ALT of 6100 and AST of 7500. Lipase was 1053. The patient was seen by general surgery and the patient was seen by gastroenterology and this is considered to be a representation of shock liver rather than acute intra-abdominal issue/acute abdomen. 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 patient is currently on high-dose norepinephrine infusion which was as high as 40 g per KG per minute. I saw the patient in the ICU first thing in the morning. The patient was in shock. She was encephalopathic and extremely lethargic. She was cold and clammy and diminished pulses in the left lower extremity and upper extremity unless debilitated checked by Doppler. The patient was still communicating and responding only to simple commands. Nevertheless, she was quite encephalopathic and lethargic and drowsy. Mother was at the bedside. I did brief discussion with the and gave him an update on her condition. Subsequently, I had to insert a triple lumen catheter an outlying catheter for hemodynamic monitoring and ongoing hemodynamic support. I also intubated the patient states that on mechanical ventilation follow-up blood gases are still pending. Meanwhile the patient received a total of 2 L of IV fluid in the form of normal saline. Urine output still diminished. Following an outlying catheter insertion to systolic blood pressure was measured to be at 1:30. Pressors are currently being gradually weaned off. Her cardiac rhythm is sinus although she is having short runs of atrial fibrillation. She is currently off amiodarone. She has off Eliquis. She is afebrile. She is sedated for the purpose of intubation mechanical ventilation. I put the patient on assist control mode of ventilation following blood gases are still pending. Post intubation chest x-ray show that the patient's right IJ line has been directed however the right subclavian. ET tube and orogastric tube are all On 03/09/2018, I'm seeing this patient in intensive care unit for a follow-up. The patient remains intubated on a mechanical ventilator. This morning, she is still sedated with Diprivan which is running at 40 g per KG per minute. She is an assist-control mode of ventilation. The blood. This morning showed considerable degree of respiratory alkalosis and based on that the necessity vent changes was done. Note that the patient's pH was at 7.69 with a pCO2 of 22 and pO2 of 64 and based on that, the tidal volume was up to 450 and the respiratory rate will drop down to 16. She still on a 50% FiO2 with a PEEP of 5. Today's chest x-ray showing it up in the bilateral pleural effusion small pulmonary vessel congestion. ET tube is high in the trachea. The right IJ is going to the right subclavian. OG tube is in place. Note that the patient is still in cardiogenic shock although hemodynamics is improved compared to yesterday. She was resuscitated with bicarb drip. The bicarb drip was taken of this morning because of the extensive metabolic alkalosis. In any rate, the serum bicarb is up to 19 and the lactic acid is to be followed up today. The patient is currently on 13 mics of levo fed. The patient is producing urine output in the order of 100 250 mL an hour. Renal function is improving and the creatinine is down to 2.6. Liver functions is also improving and the AST and ALP are in the decline. The patient received a total of 2 units of packed RBC and 6 frozen plasma yesterday and the follow-up coagulation profile still is off overall improved. INR is at 5.3 with a PT of 48.1. The platelet counts is at 90,000. The right IJ catheter is not being utilized however it has not been pulled out due to concerns of a hematoma evolution in the right flank area and the right chest area. The hematoma today's evaluation is soft and has not extended any further. NG tube is in place. She will feeds are not being offered at this point in time due to the shock liver. The cardiac rhythm is sinus. No episodes of A. fib was noted. The patient has a triple lumen catheter in the right femoral area and the patient has a arterial line in the right groin and there is no hematoma formation in the right groin area. Pulses in lower extremities is improved compared to yesterday and overall hemodynamics is better with less amount of pressors and better organ function and perfusion on today's evaluation. All of the cultures of been negative and the patient empirically covered with a combination of Merrem and vancomycin. Objective - Vital Signs Vital signs: Vital Signs Temp 97.8 F 03/09/18 02:00 Pulse 99 03/09/18 06:00 Resp 28 H 03/09/18 06:00 BP 119/63 03/09/18 00:38 Pulse Ox 96 03/09/18 06:00 Intake & Output 03/08/18 03/09/18 03/09/18 18:59 06:59 18:59 Intake Total 4696.26 3789.969 Output Total 467 1330 Balance 4229.26 2459.969 Weight 82.8 kg Intake: IV 3307.26 1390 0.9 bolus 2000 DOBUTamine DRIP 500 mg In 37.26 Dextrose/Water 1 250ml. bag @ 2.5 MCG/KG/MIN 6.21 mls/hr IV .Q24H [facility] Rx#: [id number] Dextrose 5% in Water 1, 700 1150 000 ml @ 100 mls/hr IV . [id number] ONE with Sodium Bicarb (1 Meq/ml) 150 ml Rx#:[id number] Meropenem 2 gm In Sodium 100 Chloride 0.9% 100 ml @ 200 mls/hr IVPB ONCE STA Rx#:[id number] Sodium Chloride 0.9% 1, 220 240 000 ml @ 20 mls/hr IV . Q24H [facility] Rx#:[id number] Vancomycin 1,500 mg In 250 Sodium Chloride 0.9% 250 ml @ 125 mls/hr IVPB ONCE STA Rx#:[id number] Intake, IV Titration 50 566.969 Amount DOBUTamine DRIP 500 mg In 42.228 Dextrose/Water 1 250ml. bag @ 2.5 MCG/KG/MIN 6.21 mls/hr IV .Q24H [facility] Rx#: [id number] Norepinephrine 16 mg In 324.741 Sodium Chloride 0.9% 250 ml @ Titrate IV .Q0M [facility] Rx#:[id number] Phytonadione 10 mg In 50 Sodium Chloride 0.9% 50 ml @ 100 mls/hr IVPB ONCE STA Rx#:[id number] Propofol 1,000 mg In 200 Empty Bag 1 bag @ Titrate IV .Q0M [facility], [facility] Rx#: [id number] Tube Feeding 240 Blood Product 1339 1593 Ffp 24 Cp2d Unit 0 [id number] Ffp 24 Cp2d Unit 0 [id number] Ffp 24 Cp2d Unit 238 [id number] Ffp 24 Cp2d Unit 0 [id number] Ffp 24 Cpd Unit 274 [id number] Ffp 24 Cpd Unit 0 [id number] Rc Pheresis 2 As3 Unit 0 0 [id number] Rc Pheresis 2 As3 Unit 310 [id number] Output: Urine 467 1330 Other: Voiding Method Indwelling Catheter Indwelling Catheter ABP, PAP, CO, CI - Last Documented Arterial Blood Pressure 115/81 - Exam Patient is sedated on Diprivan, Comfortable. Intubated on a mechanical ventilator. Orogastric and orotracheal tube are both in place. Head is atraumatic normocephalic. Neck examination shows positive JVDs on a 30 bed elevation. No goiter or neck masses. Mucous membranes are dry. The patient has some conjunctival icterus and pallor. The patient has a right IJ triple-lumen catheter. The cath is not being utilized. There is a soft hematoma in the right neck area extending to the anterior neck and upper chest which has not progressed since yesterday. Lungs sounds are diminished bilaterally along with bibasilar crackles. Heart sounds are tachycardic and there are distant. Positive S1-S2 and there is a faint murmur heard at a 2/6 throughout the precordium. Abdominal exam revealed normal bowel sounds. The abdomen was soft, non-tender, and without masses, organomegaly, or appreciable enlargement of the abdominal aorta. Examination of the extremities marked diminished pulses in lower extremities bilaterally also diminished pulses in the upper extremities. Extremities are warm today and there is improved pulses in the lower extremities and upper extremities bilaterally. There is some cyanosis. No clubbing. Examination of the skin revealed no evidence of significant rashes, suspicious appearing nevi or other concerning lesions. Neurologic the patient was encephalopathic and currently she is sedated with Diprivan and calm and comfortable. Psychiatric evaluation cannot be done. - Labs CBC & Chem 7: 03/09/18 02:30 03/09/18 02:30 Labs: Abnormal Lab Results - Last 24 Hours (Table) 03/08/18 03/08/18 03/08/18 Range/Units 07:24 08:12 10:30 WBC (3.8-10.6) k/uL RBC (3.80-5.40) m/uL Hgb (11.4-16.0) gm/dL Hct (34.0-46.0) % MCHC (31.0-37.0) g/dL RDW (11.5-15.5) % Plt Count (150-450) k/uL Neutrophils # (Manual) (1.3-7.7) k/uL Lymphocytes # (Manual) (1.0-4.8) k/uL Nucleated RBCs (0-0) /100 WBC PT (9.0-12.0) sec INR (<1.2) ABG pH 7.28 L (7.35-7.45) ABG pCO2 27 L (35-45) mmHg ABG pO2 394 H (83-108) mmHg ABG HCO3 13 L (21-25) mmol/L ABG Total CO2 14 L (19-24) mmol/L ABG O2 Saturation 99.3 H (94-97) % ABG Lactic Acid (0.5-1.6) mmol/L Sodium (137-145) mmol/L Potassium (3.5-5.1) mmol/L Chloride (98-107) mmol/L Carbon Dioxide (22-30) mmol/L BUN (7-17) mg/dL Creatinine 3.46 H (0.52-1.04) mg/dL Glucose (74-99) mg/dL POC Glucose (mg/dL) 117 H (75-99) mg/dL Plasma Lactic Acid Surya (0.7-2.0) mmol/L Calcium (8.4-10.2) mg/dL Total Bilirubin (0.2-1.3) mg/dL AST >7500 H (14-36) U/L ALT 6130 H (9-52) U/L Total Creatine Kinase (30-135) U/L CK-MB (CK-2) (0.0-2.4) ng/mL Total Protein (6.3-8.2) g/dL Albumin (3.5-5.0) g/dL Urine Appearance (Clear) Urine Protein (Negative) Urine Blood (Negative) Ur Leukocyte Esterase (Negative) Urine RBC (0-5) /hpf Urine WBC (0-5) /hpf Amorphous Sediment (None) /hpf Urine Bacteria (None) /hpf Urine Mucus (None) /hpf Crossmatch 03/08/18 03/08/18 03/08/18 Range/Units 10:40 10:40 10:40 WBC (3.8-10.6) k/uL RBC (3.80-5.40) m/uL Hgb (11.4-16.0) gm/dL Hct (34.0-46.0) % MCHC (31.0-37.0) g/dL RDW (11.5-15.5) % Plt Count (150-450) k/uL Neutrophils # (Manual) (1.3-7.7) k/uL Lymphocytes # (Manual) (1.0-4.8) k/uL Nucleated RBCs (0-0) /100 WBC PT >130.0 H (9.0-12.0) sec INR >10.0 H* (<1.2) ABG pH (7.35-7.45) ABG pCO2 (35-45) mmHg ABG pO2 (83-108) mmHg ABG HCO3 (21-25) mmol/L ABG Total CO2 (19-24) mmol/L ABG O2 Saturation (94-97) % ABG Lactic Acid 10.7 H* (0.5-1.6) mmol/L Sodium 133 L (137-145) mmol/L Potassium (3.5-5.1) mmol/L Chloride (98-107) mmol/L Carbon Dioxide 13 L (22-30) mmol/L BUN 61 H (7-17) mg/dL Creatinine 3.28 H (0.52-1.04) mg/dL Glucose 65 L (74-99) mg/dL POC Glucose (mg/dL) (75-99) mg/dL Plasma Lactic Acid Surya (0.7-2.0) mmol/L Calcium 7.2 L (8.4-10.2) mg/dL Total Bilirubin 5.2 H (0.2-1.3) mg/dL AST 52788 H (14-36) U/L ALT 6198 H (9-52) U/L Total Creatine Kinase (30-135) U/L CK-MB (CK-2) (0.0-2.4) ng/mL Total Protein 5.0 L (6.3-8.2) g/dL Albumin 2.6 L (3.5-5.0) g/dL Urine Appearance (Clear) Urine Protein (Negative) Urine Blood (Negative) Ur Leukocyte Esterase (Negative) Urine RBC (0-5) /hpf Urine WBC (0-5) /hpf Amorphous Sediment (None) /hpf Urine Bacteria (None) /hpf Urine Mucus (None) /hpf Crossmatch 03/08/18 03/08/18 03/08/18 Range/Units 10:40 10:40 10:54 WBC 19.8 H (3.8-10.6) k/uL RBC 2.93 L (3.80-5.40) m/uL Hgb 8.3 L D (11.4-16.0) gm/dL Hct 27.0 L (34.0-46.0) % MCHC 30.9 L (31.0-37.0) g/dL RDW 16.0 H (11.5-15.5) % Plt Count 71 L (150-450) k/uL Neutrophils # (Manual) 19.40 H (1.3-7.7) k/uL Lymphocytes # (Manual) (1.0-4.8) k/uL Nucleated RBCs 4 H (0-0) /100 WBC PT (9.0-12.0) sec INR (<1.2) ABG pH (7.35-7.45) ABG pCO2 (35-45) mmHg ABG pO2 (83-108) mmHg ABG HCO3 (21-25) mmol/L ABG Total CO2 (19-24) mmol/L ABG O2 Saturation (94-97) % ABG Lactic Acid (0.5-1.6) mmol/L Sodium (137-145) mmol/L Potassium (3.5-5.1) mmol/L Chloride (98-107) mmol/L Carbon Dioxide (22-30) mmol/L BUN (7-17) mg/dL Creatinine (0.52-1.04) mg/dL Glucose (74-99) mg/dL POC Glucose (mg/dL) 67 L (75-99) mg/dL Plasma Lactic Acid Surya (0.7-2.0) mmol/L Calcium (8.4-10.2) mg/dL Total Bilirubin (0.2-1.3) mg/dL AST (14-36) U/L ALT (9-52) U/L Total Creatine Kinase 1114 H* (30-135) U/L CK-MB (CK-2) 21.1 H (0.0-2.4) ng/mL Total Protein (6.3-8.2) g/dL Albumin (3.5-5.0) g/dL Urine Appearance (Clear) Urine Protein (Negative) Urine Blood (Negative) Ur Leukocyte Esterase (Negative) Urine RBC (0-5) /hpf Urine WBC (0-5) /hpf Amorphous Sediment (None) /hpf Urine Bacteria (None) /hpf Urine Mucus (None) /hpf Crossmatch 03/08/18 03/08/18 03/08/18 Range/Units 11:20 11:57 12:00 WBC (3.8-10.6) k/uL RBC (3.80-5.40) m/uL Hgb (11.4-16.0) gm/dL Hct (34.0-46.0) % MCHC (31.0-37.0) g/dL RDW (11.5-15.5) % Plt Count (150-450) k/uL Neutrophils # (Manual) (1.3-7.7) k/uL Lymphocytes # (Manual) (1.0-4.8) k/uL Nucleated RBCs (0-0) /100 WBC PT (9.0-12.0) sec INR (<1.2) ABG pH (7.35-7.45) ABG pCO2 (35-45) mmHg ABG pO2 (83-108) mmHg ABG HCO3 (21-25) mmol/L ABG Total CO2 (19-24) mmol/L ABG O2 Saturation (94-97) % ABG Lactic Acid (0.5-1.6) mmol/L Sodium (137-145) mmol/L Potassium (3.5-5.1) mmol/L Chloride (98-107) mmol/L Carbon Dioxide (22-30) mmol/L BUN (7-17) mg/dL Creatinine (0.52-1.04) mg/dL Glucose (74-99) mg/dL POC Glucose (mg/dL) 136 H 133 H (75-99) mg/dL Plasma Lactic Acid Surya (0.7-2.0) mmol/L Calcium (8.4-10.2) mg/dL Total Bilirubin (0.2-1.3) mg/dL AST (14-36) U/L ALT (9-52) U/L Total Creatine Kinase (30-135) U/L CK-MB (CK-2) (0.0-2.4) ng/mL Total Protein (6.3-8.2) g/dL Albumin (3.5-5.0) g/dL Urine Appearance (Clear) Urine Protein (Negative) Urine Blood (Negative) Ur Leukocyte Esterase (Negative) Urine RBC (0-5) /hpf Urine WBC (0-5) /hpf Amorphous Sediment (None) /hpf Urine Bacteria (None) /hpf Urine Mucus (None) /hpf Crossmatch See Detail 03/08/18 03/08/18 03/08/18 Range/Units 13:15 13:25 13:35 WBC (3.8-10.6) k/uL RBC (3.80-5.40) m/uL Hgb (11.4-16.0) gm/dL Hct (34.0-46.0) % MCHC (31.0-37.0) g/dL RDW (11.5-15.5) % Plt Count (150-450) k/uL Neutrophils # (Manual) (1.3-7.7) k/uL Lymphocytes # (Manual) (1.0-4.8) k/uL Nucleated RBCs (0-0) /100 WBC PT (9.0-12.0) sec INR (<1.2) ABG pH (7.35-7.45) ABG pCO2 (35-45) mmHg ABG pO2 (83-108) mmHg ABG HCO3 (21-25) mmol/L ABG Total CO2 (19-24) mmol/L ABG O2 Saturation (94-97) % ABG Lactic Acid (0.5-1.6) mmol/L Sodium (137-145) mmol/L Potassium (3.5-5.1) mmol/L Chloride (98-107) mmol/L Carbon Dioxide (22-30) mmol/L BUN (7-17) mg/dL Creatinine (0.52-1.04) mg/dL Glucose (74-99) mg/dL POC Glucose (mg/dL) 139 H (75-99) mg/dL Plasma Lactic Acid Surya 10.7 H* (0.7-2.0) mmol/L Calcium (8.4-10.2) mg/dL Total Bilirubin (0.2-1.3) mg/dL AST (14-36) U/L ALT (9-52) U/L Total Creatine Kinase (30-135) U/L CK-MB (CK-2) (0.0-2.4) ng/mL Total Protein (6.3-8.2) g/dL Albumin (3.5-5.0) g/dL Urine Appearance Cloudy H (Clear) Urine Protein 1+ H (Negative) Urine Blood Moderate H (Negative) Ur Leukocyte Esterase Small H (Negative) Urine RBC 14 H (0-5) /hpf Urine WBC 17 H (0-5) /hpf Amorphous Sediment Rare H (None) /hpf Urine Bacteria Rare H (None) /hpf Urine Mucus Rare H (None) /hpf Crossmatch 03/08/18 03/08/18 03/08/18 Range/Units 15:55 16:00 16:00 WBC (3.8-10.6) k/uL RBC (3.80-5.40) m/uL Hgb (11.4-16.0) gm/dL Hct (34.0-46.0) % MCHC (31.0-37.0) g/dL RDW (11.5-15.5) % Plt Count (150-450) k/uL Neutrophils # (Manual) (1.3-7.7) k/uL Lymphocytes # (Manual) (1.0-4.8) k/uL Nucleated RBCs (0-0) /100 WBC PT (9.0-12.0) sec INR (<1.2) ABG pH (7.35-7.45) ABG pCO2 (35-45) mmHg ABG pO2 (83-108) mmHg ABG HCO3 (21-25) mmol/L ABG Total CO2 (19-24) mmol/L ABG O2 Saturation (94-97) % ABG Lactic Acid (0.5-1.6) mmol/L Sodium 133 L (137-145) mmol/L Potassium (3.5-5.1) mmol/L Chloride 97 L (98-107) mmol/L Carbon Dioxide 12 L (22-30) mmol/L BUN 59 H (7-17) mg/dL Creatinine 3.08 H (0.52-1.04) mg/dL Glucose 154 H (74-99) mg/dL POC Glucose (mg/dL) 194 H (75-99) mg/dL Plasma Lactic Acid Surya (0.7-2.0) mmol/L Calcium 7.5 L (8.4-10.2) mg/dL Total Bilirubin 4.0 H (0.2-1.3) mg/dL AST 9184 H (14-36) U/L ALT 4865 H (9-52) U/L Total Creatine Kinase 825 H (30-135) U/L CK-MB (CK-2) 13.2 H (0.0-2.4) ng/mL Total Protein 4.8 L (6.3-8.2) g/dL Albumin 2.6 L (3.5-5.0) g/dL Urine Appearance (Clear) Urine Protein (Negative) Urine Blood (Negative) Ur Leukocyte Esterase (Negative) Urine RBC (0-5) /hpf Urine WBC (0-5) /hpf Amorphous Sediment (None) /hpf Urine Bacteria (None) /hpf Urine Mucus (None) /hpf Crossmatch 03/08/18 03/08/18 03/08/18 Range/Units 16:00 16:00 20:45 WBC 14.6 H (3.8-10.6) k/uL RBC 2.08 L (3.80-5.40) m/uL Hgb 5.9 L* D (11.4-16.0) gm/dL Hct 18.7 L* (34.0-46.0) % MCHC (31.0-37.0) g/dL RDW 16.4 H (11.5-15.5) % Plt Count 69 L (150-450) k/uL Neutrophils # (Manual) 13.80 H (1.3-7.7) k/uL Lymphocytes # (Manual) 0.73 L (1.0-4.8) k/uL Nucleated RBCs 2 H (0-0) /100 WBC PT 49.6 H (9.0-12.0) sec INR 5.5 H* (<1.2) ABG pH (7.35-7.45) ABG pCO2 (35-45) mmHg ABG pO2 (83-108) mmHg ABG HCO3 (21-25) mmol/L ABG Total CO2 (19-24) mmol/L ABG O2 Saturation (94-97) % ABG Lactic Acid (0.5-1.6) mmol/L Sodium (137-145) mmol/L Potassium (3.5-5.1) mmol/L Chloride (98-107) mmol/L Carbon Dioxide (22-30) mmol/L BUN (7-17) mg/dL Creatinine (0.52-1.04) mg/dL Glucose (74-99) mg/dL POC Glucose (mg/dL) 145 H (75-99) mg/dL Plasma Lactic Acid Surya (0.7-2.0) mmol/L Calcium (8.4-10.2) mg/dL Total Bilirubin (0.2-1.3) mg/dL AST (14-36) U/L ALT (9-52) U/L Total Creatine Kinase (30-135) U/L CK-MB (CK-2) (0.0-2.4) ng/mL Total Protein (6.3-8.2) g/dL Albumin (3.5-5.0) g/dL Urine Appearance (Clear) Urine Protein (Negative) Urine Blood (Negative) Ur Leukocyte Esterase (Negative) Urine RBC (0-5) /hpf Urine WBC (0-5) /hpf Amorphous Sediment (None) /hpf Urine Bacteria (None) /hpf Urine Mucus (None) /hpf Crossmatch 03/08/18 03/09/18 03/09/18 Range/Units 23:32 02:30 02:30 WBC 14.7 H (3.8-10.6) k/uL RBC 2.79 L (3.80-5.40) m/uL Hgb 8.2 L D (11.4-16.0) gm/dL Hct 24.8 L (34.0-46.0) % MCHC (31.0-37.0) g/dL RDW 15.9 H (11.5-15.5) % Plt Count 94 L (150-450) k/uL Neutrophils # (Manual) 14.10 H (1.3-7.7) k/uL Lymphocytes # (Manual) 0.44 L (1.0-4.8) k/uL Nucleated RBCs 8 H (0-0) /100 WBC PT (9.0-12.0) sec INR (<1.2) ABG pH (7.35-7.45) ABG pCO2 (35-45) mmHg ABG pO2 (83-108) mmHg ABG HCO3 (21-25) mmol/L ABG Total CO2 (19-24) mmol/L ABG O2 Saturation (94-97) % ABG Lactic Acid (0.5-1.6) mmol/L Sodium 135 L (137-145) mmol/L Potassium 3.1 L (3.5-5.1) mmol/L Chloride (98-107) mmol/L Carbon Dioxide 19 L (22-30) mmol/L BUN 57 H (7-17) mg/dL Creatinine 2.62 H (0.52-1.04) mg/dL Glucose 104 H (74-99) mg/dL POC Glucose (mg/dL) 166 H (75-99) mg/dL Plasma Lactic Acid Surya (0.7-2.0) mmol/L Calcium 7.2 L (8.4-10.2) mg/dL Total Bilirubin 4.4 H (0.2-1.3) mg/dL AST (14-36) U/L ALT 4684 H (9-52) U/L Total Creatine Kinase (30-135) U/L CK-MB (CK-2) (0.0-2.4) ng/mL Total Protein 4.7 L (6.3-8.2) g/dL Albumin 2.5 L (3.5-5.0) g/dL Urine Appearance (Clear) Urine Protein (Negative) Urine Blood (Negative) Ur Leukocyte Esterase (Negative) Urine RBC (0-5) /hpf Urine WBC (0-5) /hpf Amorphous Sediment (None) /hpf Urine Bacteria (None) /hpf Urine Mucus (None) /hpf Crossmatch 03/09/18 03/09/18 03/09/18 Range/Units 02:30 03:43 05:40 WBC (3.8-10.6) k/uL RBC (3.80-5.40) m/uL Hgb (11.4-16.0) gm/dL Hct (34.0-46.0) % MCHC (31.0-37.0) g/dL RDW (11.5-15.5) % Plt Count (150-450) k/uL Neutrophils # (Manual) (1.3-7.7) k/uL Lymphocytes # (Manual) (1.0-4.8) k/uL Nucleated RBCs (0-0) /100 WBC PT 48.1 H (9.0-12.0) sec INR 5.3 H* (<1.2) ABG pH 7.69 H* (7.35-7.45) ABG pCO2 22 L (35-45) mmHg ABG pO2 64 L (83-108) mmHg ABG HCO3 27 H (21-25) mmol/L ABG Total CO2 28 H (19-24) mmol/L ABG O2 Saturation (94-97) % ABG Lactic Acid (0.5-1.6) mmol/L Sodium (137-145) mmol/L Potassium (3.5-5.1) mmol/L Chloride (98-107) mmol/L Carbon Dioxide (22-30) mmol/L BUN (7-17) mg/dL Creatinine (0.52-1.04) mg/dL Glucose (74-99) mg/dL POC Glucose (mg/dL) 140 H (75-99) mg/dL Plasma Lactic Acid Surya (0.7-2.0) mmol/L Calcium (8.4-10.2) mg/dL Total Bilirubin (0.2-1.3) mg/dL AST (14-36) U/L ALT (9-52) U/L Total Creatine Kinase (30-135) U/L CK-MB (CK-2) (0.0-2.4) ng/mL Total Protein (6.3-8.2) g/dL Albumin (3.5-5.0) g/dL Urine Appearance (Clear) Urine Protein (Negative) Urine Blood (Negative) Ur Leukocyte Esterase (Negative) Urine RBC (0-5) /hpf Urine WBC (0-5) /hpf Amorphous Sediment (None) /hpf Urine Bacteria (None) /hpf Urine Mucus (None) /hpf Crossmatch 03/09/18 03/09/18 03/09/18 Range/Units 06:50 07:14 07:34 WBC (3.8-10.6) k/uL RBC (3.80-5.40) m/uL Hgb (11.4-16.0) gm/dL Hct (34.0-46.0) % MCHC (31.0-37.0) g/dL RDW (11.5-15.5) % Plt Count (150-450) k/uL Neutrophils # (Manual) (1.3-7.7) k/uL Lymphocytes # (Manual) (1.0-4.8) k/uL Nucleated RBCs (0-0) /100 WBC PT (9.0-12.0) sec INR (<1.2) ABG pH 7.54 H (7.35-7.45) ABG pCO2 (35-45) mmHg ABG pO2 (83-108) mmHg ABG HCO3 29 H (21-25) mmol/L ABG Total CO2 31 H (19-24) mmol/L ABG O2 Saturation 98.2 H (94-97) % ABG Lactic Acid (0.5-1.6) mmol/L Sodium (137-145) mmol/L Potassium (3.5-5.1) mmol/L Chloride (98-107) mmol/L Carbon Dioxide (22-30) mmol/L BUN (7-17) mg/dL Creatinine (0.52-1.04) mg/dL Glucose (74-99) mg/dL POC Glucose (mg/dL) 152 H 155 H (75-99) mg/dL Plasma Lactic Acid Surya (0.7-2.0) mmol/L Calcium (8.4-10.2) mg/dL Total Bilirubin (0.2-1.3) mg/dL AST (14-36) U/L ALT (9-52) U/L Total Creatine Kinase (30-135) U/L CK-MB (CK-2) (0.0-2.4) ng/mL Total Protein (6.3-8.2) g/dL Albumin (3.5-5.0) g/dL Urine Appearance (Clear) Urine Protein (Negative) Urine Blood (Negative) Ur Leukocyte Esterase (Negative) Urine RBC (0-5) /hpf Urine WBC (0-5) /hpf Amorphous Sediment (None) /hpf Urine Bacteria (None) /hpf Urine Mucus (None) /hpf Crossmatch Microbiology - Last 24 Hours (Table) 03/08/18 11:12 Gram Stain - Preliminary Sputum Sputum Culture - Preliminary 03/08/18 10:40 Urine Culture - Preliminary Urine,Catheterized 03/06/18 08:22 Blood Culture - Preliminary Blood No Growth after 48 hours Assessment and Plan Plan: Assessment 1 cardiogenic shock with multisystem organ failure. The patient has presented with acute on top of chronic systolic heart failure and subsequently she went into multisystem organ failure. Patient was profoundly unstable with massive hypotension requiring high-dose pressors and multisystem organ failure. On today's evaluation, the patient is slightly better in terms of hemodynamics. Pressor doses have been weaned down. The patient is perfusing much better with improved pulses in lower and upper extremities and some improvement in renal function and hepatic function. Nevertheless, she is to present dependent intubated on a mechanical ventilator. 2 CHF with systolic heart failure and ejection fraction of 20-25% based on yesterday's echocardiogram. The patient also has global severe hypokinesis, left ventricle is moderately dilated, severe mitral regurgitation, severe three- vessel regurgitation, severe pulmonary hypertension, no significant inspiratory collapse of the IVC consistent with right-sided volume overload 3 acute hypoxic respiratory failure secondary to above, chest x-ray from today showing better pleural effusion and pulmonary vessel congestion. ET tube needs to be pushed and by around a centimeter. 4 acute kidney injury secondary to above, improving compared to yesterday and creatinine is down to 2.6 5 acute shock liver secondary to above, LFTs are improving and the patient is still profoundly coagulopathic posttransfusion 6 units of pfresh frozen plasma and vitamin K. The patient remains profoundly coagulopathic at this point 6 proximal atrial fibrillation current rhythm is sinus 7 carotid artery disease with a previous left carotid endarterectomy 8 history of melanoma resected 9 acute hyperkalemia secondary to the metabolic acidosis and acute kidney injury , improved 10 severe lactic acidosis, improving follow-up lactic acid level is pending 11 acute thrombocytopenia secondary to above, rule out underlying component of DIC 12 acute leukocytosis secondary to above. Underlying sepsis felt to be less likely or Doppler this stage 13 acute elevation of the lipase questionable component of pancreatitis in addition 14 history of AICD placement 15 history of ESBL producing urine checked infection back in general 2017 with E. coli 16 chronic hypoxic respiratory failure and the patient is oxygen at 2 L per minute nasal cannula 17 severe coagulopathy with hematoma formation at the site of a right IJ triple- lumen catheter insertion site. Plan Condition remains still very critical. We have done some progress compared to yesterday. She remains on a mechanical ventilator. On today's blood work the patient's renal function is improving and LFTs are also improving. Her blood gas show significant respiratory alkalosis. The necessary vent changes were done and the tidal volume was dropped down to 400 with a rate of 16. The IV fluids were also switched to normal saline at rate of 75 mL an hour. The patient will be given additional 2 units of fresh frozen plasma. The patient be given additional 10 mg of vitamin K. Monitor coagulation profile. Monitor hemoglobin and the patient's hemoglobin is up to 8.2. Cultures are all negative. Continue same antibiotic coverage. Wean off pressors as long as were able to have a mean arterial pressure above 65. Monitor the neck and the chest hematoma. Remove the triple lumen catheter once the patient's coagulation profile is under better control. I had a lengthy discussion with the family. I met the family yesterday and I talked to the children and the . I updated them on the condition. 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 I do not have any issue or problem contacted me [facility] as long as the provided me with the appropriate contact numbers. We have our cardiologists seeing the patient here in ICU. Continue nephrology follow-up. Continue ICU care. This evaluation was done and 35 minutes and the patient is critically ill and still carries a high risk of mortality. We'll continue to follow. This evaluation was done and 35 minutes. Time with Patient: Greater than 30
[2018-03-09] MEDS ORDERED: PHYTONADIONE 10 MG in SODIUM CHLORIDE 0.9% 50 ML IVPB STA (08:20)
[2018-03-09] MEDS: ASPIRIN 81 MG PO SCH (08:26)
[2018-03-09] MEDS: NITROGLYCERIN OINT 1 INCH/GM PACKET TOPICAL SCH ×2 (09:26→12:24)
[2018-03-09] MEDS: ALLOPURINOL 100 MG TAB PO SCH (10:27)
[2018-03-09] MEDS: METOPROLOL SUCCINATE (ER) 25 MG TAB.ER.24H PO SCH (10:27)
[2018-03-09] MEDS: guaiFENesin 600 MG TABLET.ER PO SCH ×2 (10:27→21:37)
[2018-03-09] MEDS: POTASSIUM CHLORIDE ER 20 MEQ TAB.ER PO SCH (10:28)
[2018-03-09] MEDS: SENNOSIDES-DOCUSATE SODIUM 1 EACH TAB PO SCH ×2 (10:28→21:37)
[2018-03-09] MEDS: PANTOPRAZOLE 40 MG/10 ML VIAL IVP SCH (10:58)
[2018-03-09] MEDS: CHLORHEXIDINE GLUCONATE 15 ML CUP MUCOUS MEM SCH ×2 (10:58→21:36)
[2018-03-09] MEDS: MEROPENEM 500 MG in SODIUM CHLORIDE 0.9% 50 ML IVPB SCH ×2 (10:58→21:38)
--- NOTE | 2018-03-09 11:10 | P.PN ---
Subjective Progress Note Date: 03/09/18 Principal diagnosis: Elevated liver enzymes Clinical status is worsening. Intubated sedated. High-dose pressors. 72-year- old female admitted with shortness of breath CHF symptoms abdominal discomfort elevated liver enzymes septic type picture underlying history of atrial fibrillation AICD. Patient reevaluated today in regards to elevated liver enzymes. Hemoglobin decreased to 5.9 yesterday afternoon presently 8.2 received 2 unit of blood and 6 FFP VITAMIN K INR was greater than 10 presently 5.3. Afebrile. White count 14.7. Platelet 94,000. BUN 57. Creatinine 2.6. Total bilirubin 4.4. AST greater than 8702. ALT 4684. AP 118. Lipase 1053. Objective - Vital Signs Vital signs: Vital Signs Temp 97.4 F L 03/09/18 10:35 Pulse 87 03/09/18 10:35 Resp 28 H 03/09/18 10:35 BP 107/60 03/09/18 10:35 Pulse Ox 98 03/09/18 10:35 Intake & Output 03/08/18 03/09/18 03/09/18 18:59 06:59 18:59 Intake Total 4696.26 3856.936 319 Output Total 467 1330 350 Balance 4229.26 2526.936 -31 Weight 82.8 kg Intake: IV 3307.26 1390 319 0.9 NS pressure bag 9 0.9 bolus 2000 DOBUTamine DRIP 500 mg In 37.26 Dextrose/Water 1 250ml. bag @ 2.5 MCG/KG/MIN 6.21 mls/hr IV .Q24H [facility] Rx#: [id number] Dextrose 5% in Water 1, 700 1150 100 000 ml @ 100 mls/hr IV . [id number] ONE with Sodium Bicarb (1 Meq/ml) 150 ml Rx#:[id number] Dextrose 5%-0.9% NaCl 1, 150 000 ml @ 75 mls/hr IV . [id number] [facility] Rx#:[id number] Meropenem 2 gm In Sodium 100 Chloride 0.9% 100 ml @ 200 mls/hr IVPB ONCE STA Rx#:[id number] Sodium Chloride 0.9% 1, 220 240 60 000 ml @ 20 mls/hr IV . Q24H [facility] Rx#:[id number] Vancomycin 1,500 mg In 250 Sodium Chloride 0.9% 250 ml @ 125 mls/hr IVPB ONCE STA Rx#:[id number] Intake, IV Titration 50 633.936 Amount DOBUTamine DRIP 500 mg In 42.228 Dextrose/Water 1 250ml. bag @ 2.5 MCG/KG/MIN 6.21 mls/hr IV .Q24H [facility] Rx#: [id number] Norepinephrine 16 mg In 391.708 Sodium Chloride 0.9% 250 ml @ Titrate IV .Q0M [facility] Rx#:[id number] Phytonadione 10 mg In 50 Sodium Chloride 0.9% 50 ml @ 100 mls/hr IVPB ONCE STA Rx#:[id number] Propofol 1,000 mg In 200 Empty Bag 1 bag @ Titrate IV .Q0M [facility] Rx#: [id number] Tube Feeding 240 Blood Product 1339 1593 0 Ffp 24 Cp2d Unit 0 [id number] Ffp 24 Cp2d Unit 0 [id number] Ffp 24 Cp2d Unit 238 [id number] Ffp 24 Cp2d Unit 0 [id number] Ffp 24 Cpd Unit 0 [id number] Ffp 24 Cpd Unit 274 [id number] Ffp 24 Cpd Unit 0 [id number] Rc Pheresis 2 As3 Unit 0 0 [id number] Rc Pheresis 2 As3 Unit 310 [id number] Output: Urine 467 1330 350 Other: Voiding Method Indwelling Catheter Indwelling Catheter Indwelling Catheter ABP, PAP, CO, CI - Last Documented Arterial Blood Pressure 106/58 - Exam General appearance: The patient is intubated sedated HET: Head is normocephalic and atraumatic. Pupils are equal and reactive. Oropharynx is clear without lesions. OG without blood. Neck: Supple without lymphadenopathy. Trachea midline. Heart: S1 S2. Regular rate and rhythm. Lungs: No crackles or wheezes are heard. Abdomen: Soft, nontender, nondistended with bowel sounds. No peritoneal signs. No palpable organomegaly or masses. Extremities: Normal skin color and turgor. No cyanosis, rash, ulceration, clubbing, or edema. Radial and pedal pulses are 2/4 bilaterally. Ortega with clear yellow urine. Neurological: Unable to assess intubated sedated - Labs CBC & Chem 7: 03/09/18 02:30 03/09/18 02:30 Labs: Abnormal Lab Results - Last 24 Hours (Table) 03/08/18 03/08/18 03/08/18 Range/Units 10:40 10:40 10:40 WBC (3.8-10.6) k/uL RBC (3.80-5.40) m/uL Hgb (11.4-16.0) gm/dL Hct (34.0-46.0) % MCHC (31.0-37.0) g/dL RDW (11.5-15.5) % Plt Count (150-450) k/uL Neutrophils # (Manual) (1.3-7.7) k/uL Lymphocytes # (Manual) (1.0-4.8) k/uL Nucleated RBCs (0-0) /100 WBC PT >130.0 H (9.0-12.0) sec INR >10.0 H* (<1.2) ABG pH (7.35-7.45) ABG pCO2 (35-45) mmHg ABG pO2 (83-108) mmHg ABG HCO3 (21-25) mmol/L ABG Total CO2 (19-24) mmol/L ABG O2 Saturation (94-97) % ABG Lactic Acid 10.7 H* (0.5-1.6) mmol/L Sodium 133 L (137-145) mmol/L Potassium (3.5-5.1) mmol/L Chloride (98-107) mmol/L Carbon Dioxide 13 L (22-30) mmol/L BUN 61 H (7-17) mg/dL Creatinine 3.28 H (0.52-1.04) mg/dL Glucose 65 L (74-99) mg/dL POC Glucose (mg/dL) (75-99) mg/dL Plasma Lactic Acid Surya (0.7-2.0) mmol/L Calcium 7.2 L (8.4-10.2) mg/dL Total Bilirubin 5.2 H (0.2-1.3) mg/dL AST 54222 H (14-36) U/L ALT 6198 H (9-52) U/L Total Creatine Kinase (30-135) U/L CK-MB (CK-2) (0.0-2.4) ng/mL Total Protein 5.0 L (6.3-8.2) g/dL Albumin 2.6 L (3.5-5.0) g/dL Urine Appearance (Clear) Urine Protein (Negative) Urine Blood (Negative) Ur Leukocyte Esterase (Negative) Urine RBC (0-5) /hpf Urine WBC (0-5) /hpf Amorphous Sediment (None) /hpf Urine Bacteria (None) /hpf Urine Mucus (None) /hpf Crossmatch 03/08/18 03/08/18 03/08/18 Range/Units 10:40 10:40 11:20 WBC 19.8 H (3.8-10.6) k/uL RBC 2.93 L (3.80-5.40) m/uL Hgb 8.3 L D (11.4-16.0) gm/dL Hct 27.0 L (34.0-46.0) % MCHC 30.9 L (31.0-37.0) g/dL RDW 16.0 H (11.5-15.5) % Plt Count 71 L (150-450) k/uL Neutrophils # (Manual) 19.40 H (1.3-7.7) k/uL Lymphocytes # (Manual) (1.0-4.8) k/uL Nucleated RBCs 4 H (0-0) /100 WBC PT (9.0-12.0) sec INR (<1.2) ABG pH (7.35-7.45) ABG pCO2 (35-45) mmHg ABG pO2 (83-108) mmHg ABG HCO3 (21-25) mmol/L ABG Total CO2 (19-24) mmol/L ABG O2 Saturation (94-97) % ABG Lactic Acid (0.5-1.6) mmol/L Sodium (137-145) mmol/L Potassium (3.5-5.1) mmol/L Chloride (98-107) mmol/L Carbon Dioxide (22-30) mmol/L BUN (7-17) mg/dL Creatinine (0.52-1.04) mg/dL Glucose (74-99) mg/dL POC Glucose (mg/dL) 136 H (75-99) mg/dL Plasma Lactic Acid Surya (0.7-2.0) mmol/L Calcium (8.4-10.2) mg/dL Total Bilirubin (0.2-1.3) mg/dL AST (14-36) U/L ALT (9-52) U/L Total Creatine Kinase 1114 H* (30-135) U/L CK-MB (CK-2) 21.1 H (0.0-2.4) ng/mL Total Protein (6.3-8.2) g/dL Albumin (3.5-5.0) g/dL Urine Appearance (Clear) Urine Protein (Negative) Urine Blood (Negative) Ur Leukocyte Esterase (Negative) Urine RBC (0-5) /hpf Urine WBC (0-5) /hpf Amorphous Sediment (None) /hpf Urine Bacteria (None) /hpf Urine Mucus (None) /hpf Crossmatch 03/08/18 03/08/18 03/08/18 Range/Units 11:57 12:00 13:15 WBC (3.8-10.6) k/uL RBC (3.80-5.40) m/uL Hgb (11.4-16.0) gm/dL Hct (34.0-46.0) % MCHC (31.0-37.0) g/dL RDW (11.5-15.5) % Plt Count (150-450) k/uL Neutrophils # (Manual) (1.3-7.7) k/uL Lymphocytes # (Manual) (1.0-4.8) k/uL Nucleated RBCs (0-0) /100 WBC PT (9.0-12.0) sec INR (<1.2) ABG pH (7.35-7.45) ABG pCO2 (35-45) mmHg ABG pO2 (83-108) mmHg ABG HCO3 (21-25) mmol/L ABG Total CO2 (19-24) mmol/L ABG O2 Saturation (94-97) % ABG Lactic Acid (0.5-1.6) mmol/L Sodium (137-145) mmol/L Potassium (3.5-5.1) mmol/L Chloride (98-107) mmol/L Carbon Dioxide (22-30) mmol/L BUN (7-17) mg/dL Creatinine (0.52-1.04) mg/dL Glucose (74-99) mg/dL POC Glucose (mg/dL) 133 H (75-99) mg/dL Plasma Lactic Acid Surya (0.7-2.0) mmol/L Calcium (8.4-10.2) mg/dL Total Bilirubin (0.2-1.3) mg/dL AST (14-36) U/L ALT (9-52) U/L Total Creatine Kinase (30-135) U/L CK-MB (CK-2) (0.0-2.4) ng/mL Total Protein (6.3-8.2) g/dL Albumin (3.5-5.0) g/dL Urine Appearance Cloudy H (Clear) Urine Protein 1+ H (Negative) Urine Blood Moderate H (Negative) Ur Leukocyte Esterase Small H (Negative) Urine RBC 14 H (0-5) /hpf Urine WBC 17 H (0-5) /hpf Amorphous Sediment Rare H (None) /hpf Urine Bacteria Rare H (None) /hpf Urine Mucus Rare H (None) /hpf Crossmatch See Detail 03/08/18 03/08/18 03/08/18 Range/Units 13:25 13:35 15:55 WBC (3.8-10.6) k/uL RBC (3.80-5.40) m/uL Hgb (11.4-16.0) gm/dL Hct (34.0-46.0) % MCHC (31.0-37.0) g/dL RDW (11.5-15.5) % Plt Count (150-450) k/uL Neutrophils # (Manual) (1.3-7.7) k/uL Lymphocytes # (Manual) (1.0-4.8) k/uL Nucleated RBCs (0-0) /100 WBC PT (9.0-12.0) sec INR (<1.2) ABG pH (7.35-7.45) ABG pCO2 (35-45) mmHg ABG pO2 (83-108) mmHg ABG HCO3 (21-25) mmol/L ABG Total CO2 (19-24) mmol/L ABG O2 Saturation (94-97) % ABG Lactic Acid (0.5-1.6) mmol/L Sodium (137-145) mmol/L Potassium (3.5-5.1) mmol/L Chloride (98-107) mmol/L Carbon Dioxide (22-30) mmol/L BUN (7-17) mg/dL Creatinine (0.52-1.04) mg/dL Glucose (74-99) mg/dL POC Glucose (mg/dL) 139 H 194 H (75-99) mg/dL Plasma Lactic Acid Surya 10.7 H* (0.7-2.0) mmol/L Calcium (8.4-10.2) mg/dL Total Bilirubin (0.2-1.3) mg/dL AST (14-36) U/L ALT (9-52) U/L Total Creatine Kinase (30-135) U/L CK-MB (CK-2) (0.0-2.4) ng/mL Total Protein (6.3-8.2) g/dL Albumin (3.5-5.0) g/dL Urine Appearance (Clear) Urine Protein (Negative) Urine Blood (Negative) Ur Leukocyte Esterase (Negative) Urine RBC (0-5) /hpf Urine WBC (0-5) /hpf Amorphous Sediment (None) /hpf Urine Bacteria (None) /hpf Urine Mucus (None) /hpf Crossmatch 03/08/18 03/08/18 03/08/18 Range/Units 16:00 16:00 16:00 WBC 14.6 H (3.8-10.6) k/uL RBC 2.08 L (3.80-5.40) m/uL Hgb 5.9 L* D (11.4-16.0) gm/dL Hct 18.7 L* (34.0-46.0) % MCHC (31.0-37.0) g/dL RDW 16.4 H (11.5-15.5) % Plt Count 69 L (150-450) k/uL Neutrophils # (Manual) 13.80 H (1.3-7.7) k/uL Lymphocytes # (Manual) 0.73 L (1.0-4.8) k/uL Nucleated RBCs 2 H (0-0) /100 WBC PT (9.0-12.0) sec INR (<1.2) ABG pH (7.35-7.45) ABG pCO2 (35-45) mmHg ABG pO2 (83-108) mmHg ABG HCO3 (21-25) mmol/L ABG Total CO2 (19-24) mmol/L ABG O2 Saturation (94-97) % ABG Lactic Acid (0.5-1.6) mmol/L Sodium 133 L (137-145) mmol/L Potassium (3.5-5.1) mmol/L Chloride 97 L (98-107) mmol/L Carbon Dioxide 12 L (22-30) mmol/L BUN 59 H (7-17) mg/dL Creatinine 3.08 H (0.52-1.04) mg/dL Glucose 154 H (74-99) mg/dL POC Glucose (mg/dL) (75-99) mg/dL Plasma Lactic Acid Surya (0.7-2.0) mmol/L Calcium 7.5 L (8.4-10.2) mg/dL Total Bilirubin 4.0 H (0.2-1.3) mg/dL AST 9184 H (14-36) U/L ALT 4865 H (9-52) U/L Total Creatine Kinase 825 H (30-135) U/L CK-MB (CK-2) 13.2 H (0.0-2.4) ng/mL Total Protein 4.8 L (6.3-8.2) g/dL Albumin 2.6 L (3.5-5.0) g/dL Urine Appearance (Clear) Urine Protein (Negative) Urine Blood (Negative) Ur Leukocyte Esterase (Negative) Urine RBC (0-5) /hpf Urine WBC (0-5) /hpf Amorphous Sediment (None) /hpf Urine Bacteria (None) /hpf Urine Mucus (None) /hpf Crossmatch 03/08/18 03/08/18 03/08/18 Range/Units 16:00 20:45 23:32 WBC (3.8-10.6) k/uL RBC (3.80-5.40) m/uL Hgb (11.4-16.0) gm/dL Hct (34.0-46.0) % MCHC (31.0-37.0) g/dL RDW (11.5-15.5) % Plt Count (150-450) k/uL Neutrophils # (Manual) (1.3-7.7) k/uL Lymphocytes # (Manual) (1.0-4.8) k/uL Nucleated RBCs (0-0) /100 WBC PT 49.6 H (9.0-12.0) sec INR 5.5 H* (<1.2) ABG pH (7.35-7.45) ABG pCO2 (35-45) mmHg ABG pO2 (83-108) mmHg ABG HCO3 (21-25) mmol/L ABG Total CO2 (19-24) mmol/L ABG O2 Saturation (94-97) % ABG Lactic Acid (0.5-1.6) mmol/L Sodium (137-145) mmol/L Potassium (3.5-5.1) mmol/L Chloride (98-107) mmol/L Carbon Dioxide (22-30) mmol/L BUN (7-17) mg/dL Creatinine (0.52-1.04) mg/dL Glucose (74-99) mg/dL POC Glucose (mg/dL) 145 H 166 H (75-99) mg/dL Plasma Lactic Acid Surya (0.7-2.0) mmol/L Calcium (8.4-10.2) mg/dL Total Bilirubin (0.2-1.3) mg/dL AST (14-36) U/L ALT (9-52) U/L Total Creatine Kinase (30-135) U/L CK-MB (CK-2) (0.0-2.4) ng/mL Total Protein (6.3-8.2) g/dL Albumin (3.5-5.0) g/dL Urine Appearance (Clear) Urine Protein (Negative) Urine Blood (Negative) Ur Leukocyte Esterase (Negative) Urine RBC (0-5) /hpf Urine WBC (0-5) /hpf Amorphous Sediment (None) /hpf Urine Bacteria (None) /hpf Urine Mucus (None) /hpf Crossmatch 03/09/18 03/09/18 03/09/18 Range/Units 02:30 02:30 02:30 WBC 14.7 H (3.8-10.6) k/uL RBC 2.79 L (3.80-5.40) m/uL Hgb 8.2 L D (11.4-16.0) gm/dL Hct 24.8 L (34.0-46.0) % MCHC (31.0-37.0) g/dL RDW 15.9 H (11.5-15.5) % Plt Count 94 L (150-450) k/uL Neutrophils # (Manual) 14.10 H (1.3-7.7) k/uL Lymphocytes # (Manual) 0.44 L (1.0-4.8) k/uL Nucleated RBCs 8 H (0-0) /100 WBC PT 48.1 H (9.0-12.0) sec INR 5.3 H* (<1.2) ABG pH (7.35-7.45) ABG pCO2 (35-45) mmHg ABG pO2 (83-108) mmHg ABG HCO3 (21-25) mmol/L ABG Total CO2 (19-24) mmol/L ABG O2 Saturation (94-97) % ABG Lactic Acid (0.5-1.6) mmol/L Sodium 135 L (137-145) mmol/L Potassium 3.1 L (3.5-5.1) mmol/L Chloride (98-107) mmol/L Carbon Dioxide 19 L (22-30) mmol/L BUN 57 H (7-17) mg/dL Creatinine 2.62 H (0.52-1.04) mg/dL Glucose 104 H (74-99) mg/dL POC Glucose (mg/dL) (75-99) mg/dL Plasma Lactic Acid Surya (0.7-2.0) mmol/L Calcium 7.2 L (8.4-10.2) mg/dL Total Bilirubin 4.4 H (0.2-1.3) mg/dL AST 8702 H (14-36) U/L ALT 4684 H (9-52) U/L Total Creatine Kinase (30-135) U/L CK-MB (CK-2) (0.0-2.4) ng/mL Total Protein 4.7 L (6.3-8.2) g/dL Albumin 2.5 L (3.5-5.0) g/dL Urine Appearance (Clear) Urine Protein (Negative) Urine Blood (Negative) Ur Leukocyte Esterase (Negative) Urine RBC (0-5) /hpf Urine WBC (0-5) /hpf Amorphous Sediment (None) /hpf Urine Bacteria (None) /hpf Urine Mucus (None) /hpf Crossmatch 03/09/18 03/09/18 03/09/18 Range/Units 03:43 05:40 06:50 WBC (3.8-10.6) k/uL RBC (3.80-5.40) m/uL Hgb (11.4-16.0) gm/dL Hct (34.0-46.0) % MCHC (31.0-37.0) g/dL RDW (11.5-15.5) % Plt Count (150-450) k/uL Neutrophils # (Manual) (1.3-7.7) k/uL Lymphocytes # (Manual) (1.0-4.8) k/uL Nucleated RBCs (0-0) /100 WBC PT (9.0-12.0) sec INR (<1.2) ABG pH 7.69 H* (7.35-7.45) ABG pCO2 22 L (35-45) mmHg ABG pO2 64 L (83-108) mmHg ABG HCO3 27 H (21-25) mmol/L ABG Total CO2 28 H (19-24) mmol/L ABG O2 Saturation (94-97) % ABG Lactic Acid (0.5-1.6) mmol/L Sodium (137-145) mmol/L Potassium (3.5-5.1) mmol/L Chloride (98-107) mmol/L Carbon Dioxide (22-30) mmol/L BUN (7-17) mg/dL Creatinine (0.52-1.04) mg/dL Glucose (74-99) mg/dL POC Glucose (mg/dL) 140 H 152 H (75-99) mg/dL Plasma Lactic Acid Surya (0.7-2.0) mmol/L Calcium (8.4-10.2) mg/dL Total Bilirubin (0.2-1.3) mg/dL AST (14-36) U/L ALT (9-52) U/L Total Creatine Kinase (30-135) U/L CK-MB (CK-2) (0.0-2.4) ng/mL Total Protein (6.3-8.2) g/dL Albumin (3.5-5.0) g/dL Urine Appearance (Clear) Urine Protein (Negative) Urine Blood (Negative) Ur Leukocyte Esterase (Negative) Urine RBC (0-5) /hpf Urine WBC (0-5) /hpf Amorphous Sediment (None) /hpf Urine Bacteria (None) /hpf Urine Mucus (None) /hpf Crossmatch 03/09/18 03/09/18 Range/Units 07:14 07:34 WBC (3.8-10.6) k/uL RBC (3.80-5.40) m/uL Hgb (11.4-16.0) gm/dL Hct (34.0-46.0) % MCHC (31.0-37.0) g/dL RDW (11.5-15.5) % Plt Count (150-450) k/uL Neutrophils # (Manual) (1.3-7.7) k/uL Lymphocytes # (Manual) (1.0-4.8) k/uL Nucleated RBCs (0-0) /100 WBC PT (9.0-12.0) sec INR (<1.2) ABG pH 7.54 H (7.35-7.45) ABG pCO2 (35-45) mmHg ABG pO2 (83-108) mmHg ABG HCO3 29 H (21-25) mmol/L ABG Total CO2 31 H (19-24) mmol/L ABG O2 Saturation 98.2 H (94-97) % ABG Lactic Acid (0.5-1.6) mmol/L Sodium (137-145) mmol/L Potassium (3.5-5.1) mmol/L Chloride (98-107) mmol/L Carbon Dioxide (22-30) mmol/L BUN (7-17) mg/dL Creatinine (0.52-1.04) mg/dL Glucose (74-99) mg/dL POC Glucose (mg/dL) 155 H (75-99) mg/dL Plasma Lactic Acid Surya (0.7-2.0) mmol/L Calcium (8.4-10.2) mg/dL Total Bilirubin (0.2-1.3) mg/dL AST (14-36) U/L ALT (9-52) U/L Total Creatine Kinase (30-135) U/L CK-MB (CK-2) (0.0-2.4) ng/mL Total Protein (6.3-8.2) g/dL Albumin (3.5-5.0) g/dL Urine Appearance (Clear) Urine Protein (Negative) Urine Blood (Negative) Ur Leukocyte Esterase (Negative) Urine RBC (0-5) /hpf Urine WBC (0-5) /hpf Amorphous Sediment (None) /hpf Urine Bacteria (None) /hpf Urine Mucus (None) /hpf Crossmatch Microbiology - Last 24 Hours (Table) 03/06/18 08:22 Blood Culture - Preliminary Blood No Growth after 72 hours 03/08/18 11:12 Gram Stain - Preliminary Sputum Sputum Culture - Preliminary 03/08/18 10:40 Urine Culture - Preliminary Urine,Catheterized Assessment and Plan (1) Elevated liver enzymes Narrative/Plan: 72-year-old female admitted with acute on chronic congestive heart failure ischemic cardiomyopathy shortness of breath and elevated liver enzymes consistent with acute hepatocellular injury shock liver congestive hepatopathy. Clinical status consistent with acute septic type cardiac shock with multiorgan failure septic picture appears to be less likely cause at this time. Current Visit: Yes Status: Acute Code(s): R74.8 - ABNORMAL LEVELS OF OTHER SERUM ENZYMES SNOMED Code(s): 210107004 (2) Elevated amylase and lipase Current Visit: Yes Status: Acute Code(s): R74.8 - ABNORMAL LEVELS OF OTHER SERUM ENZYMES SNOMED Code(s): 990587642 (3) Congestive heart failure Current Visit: Yes Status: Acute Code(s): I50.9 - HEART FAILURE, UNSPECIFIED SNOMED Code(s): 26164833 (4) Acute kidney injury Current Visit: No Status: Acute Code(s): N17.9 - ACUTE KIDNEY FAILURE, UNSPECIFIED SNOMED Code(s): 30909701 (5) Ischemic cardiomyopathy Current Visit: No Status: Chronic Code(s): I25.5 - ISCHEMIC CARDIOMYOPATHY SNOMED Code(s): 701186206 (6) Elevated lactic acid level Current Visit: Yes Status: Acute Code(s): R79.89 - OTHER SPECIFIED ABNORMAL FINDINGS OF BLOOD CHEMISTRY SNOMED Code(s): 4368301 (7) Coagulopathy Current Visit: Yes Status: Acute Code(s): D68.9 - COAGULATION DEFECT, UNSPECIFIED SNOMED Code(s): 49281228 (8) Anemia Narrative/Plan: Without overt bleeding possible acute blood loss status post blood transfusion and FFP vitamin K Current Visit: Yes Status: Acute Code(s): D64.9 - ANEMIA, UNSPECIFIED SNOMED Code(s): 479354748 Plan: 1. Symptomatic supportive measures. LFTs are slowly improving. Overall condition is guarded. Continue GI prophylaxis CBC monitoring blood transfusion FFP vitamin K as indicated. Daily monitoring of CMP, CBC, INR. Assessment and plan a care discussed with Dr. Stone
[2018-03-09 12:13] LABS: ABG Base Excess 7.5 mmol/L; ABG HCO3 31 mmol/L (21-25); ABG Oxygen Saturation 98.6 % (94-97); ABG PCO2 42 mmHg (35-45); ABG PH 7.48 (7.35-7.45); ABG PO2 109 mmHg (83-108); ABG TCO2 32 mmol/L (19-24)
[2018-03-09 12:23] LABS: Glucose,Whole Blood 169 mg/dL (75-99)
--- NOTE | 2018-03-09 13:28 | P.PN ---
Subjective Progress Note Date: 03/09/18 Principal diagnosis: Cholecystitis Patient doing better on the ventilator today. Her numbers have improved. Urine output adequate at this time. Pressor requirements decreased. Objective - Vital Signs Vital signs: Vital Signs Temp 97.3 F L 03/09/18 13:15 Pulse 91 03/09/18 13:15 Resp 17 03/09/18 13:15 BP 101/62 03/09/18 13:15 Pulse Ox 99 03/09/18 13:15 Intake & Output 03/08/18 03/09/18 03/09/18 18:59 06:59 18:59 Intake Total 4696.26 3856.936 1059.331 Output Total 467 1330 600 Balance 4229.26 2526.936 459.331 Weight 82.8 kg Intake: IV 3307.26 1390 553 0.9 NS pressure bag 18 0.9 bolus 2000 DOBUTamine DRIP 500 mg In 37.26 Dextrose/Water 1 250ml. bag @ 2.5 MCG/KG/MIN 6.21 mls/hr IV .Q24H [facility] Rx#: [id number] Dextrose 5% in Water 1, 700 1150 100 000 ml @ 100 mls/hr IV . [id number] ONE with Sodium Bicarb (1 Meq/ml) 150 ml Rx#:[id number] Dextrose 5%-0.9% NaCl 1, 375 000 ml @ 75 mls/hr IV . [id number] [facility] Rx#:[id number] Meropenem 2 gm In Sodium 100 Chloride 0.9% 100 ml @ 200 mls/hr IVPB ONCE STA Rx#:[id number] Sodium Chloride 0.9% 1, 220 240 60 000 ml @ 20 mls/hr IV . Q24H [facility] Rx#:[id number] Vancomycin 1,500 mg In 250 Sodium Chloride 0.9% 250 ml @ 125 mls/hr IVPB ONCE STA Rx#:[id number] Intake, IV Titration 50 633.936 200.331 Amount DOBUTamine DRIP 500 mg In 42.228 Dextrose/Water 1 250ml. bag @ 2.5 MCG/KG/MIN 6.21 mls/hr IV .Q24H [facility] Rx#: [id number] Norepinephrine 16 mg In 391.708 Sodium Chloride 0.9% 250 ml @ Titrate IV .Q0M [facility] Rx#:[id number] Phytonadione 10 mg In 50 Sodium Chloride 0.9% 50 ml @ 100 mls/hr IVPB ONCE STA Rx#:[id number] Phytonadione 10 mg In 100 Sodium Chloride 0.9% 50 ml @ 100 mls/hr IVPB ONCE STA Rx#:[id number] Propofol 1,000 mg In 200 100.331 Empty Bag 1 bag @ Titrate IV .Q0M [facility] Rx#: [id number] Tube Feeding 240 Blood Product 1339 1593 306 Ffp 24 Cp2d Unit 0 [id number] Ffp 24 Cp2d Unit 0 [id number] Ffp 24 Cp2d Unit 238 [id number] Ffp 24 Cp2d Unit 0 [id number] Ffp 24 Cp2d Unit 0 [id number] Ffp 24 Cpd Unit 306 [id number] Ffp 24 Cpd Unit 274 [id number] Ffp 24 Cpd Unit 0 [id number] Rc Pheresis 2 As3 Unit 0 0 [id number] Rc Pheresis 2 As3 Unit 310 [id number] Output: Urine 467 1330 600 Other: Voiding Method Indwelling Catheter Indwelling Catheter Indwelling Catheter ABP, PAP, CO, CI - Last Documented Arterial Blood Pressure 98/62 - Exam Abdomen: Soft, nontender, nondistended - Labs CBC & Chem 7: 03/09/18 02:30 03/09/18 02:30 Labs: Abnormal Lab Results - Last 24 Hours (Table) 03/08/18 03/08/18 03/08/18 Range/Units 12:00 13:15 13:25 WBC (3.8-10.6) k/uL RBC (3.80-5.40) m/uL Hgb (11.4-16.0) gm/dL Hct (34.0-46.0) % RDW (11.5-15.5) % Plt Count (150-450) k/uL Neutrophils # (Manual) (1.3-7.7) k/uL Lymphocytes # (Manual) (1.0-4.8) k/uL Nucleated RBCs (0-0) /100 WBC PT (9.0-12.0) sec INR (<1.2) ABG pH (7.35-7.45) ABG pCO2 (35-45) mmHg ABG pO2 (83-108) mmHg ABG HCO3 (21-25) mmol/L ABG Total CO2 (19-24) mmol/L ABG O2 Saturation (94-97) % ABG Lactic Acid (0.5-1.6) mmol/L Sodium (137-145) mmol/L Potassium (3.5-5.1) mmol/L Chloride (98-107) mmol/L Carbon Dioxide (22-30) mmol/L BUN (7-17) mg/dL Creatinine (0.52-1.04) mg/dL Glucose (74-99) mg/dL POC Glucose (mg/dL) (75-99) mg/dL Plasma Lactic Acid Surya 10.7 H* (0.7-2.0) mmol/L Calcium (8.4-10.2) mg/dL Total Bilirubin (0.2-1.3) mg/dL AST (14-36) U/L ALT (9-52) U/L Total Creatine Kinase (30-135) U/L CK-MB (CK-2) (0.0-2.4) ng/mL Total Protein (6.3-8.2) g/dL Albumin (3.5-5.0) g/dL Urine Appearance Cloudy H (Clear) Urine Protein 1+ H (Negative) Urine Blood Moderate H (Negative) Ur Leukocyte Esterase Small H (Negative) Urine RBC 14 H (0-5) /hpf Urine WBC 17 H (0-5) /hpf Amorphous Sediment Rare H (None) /hpf Urine Bacteria Rare H (None) /hpf Urine Mucus Rare H (None) /hpf Crossmatch See Detail 03/08/18 03/08/18 03/08/18 Range/Units 13:35 15:55 16:00 WBC (3.8-10.6) k/uL RBC (3.80-5.40) m/uL Hgb (11.4-16.0) gm/dL Hct (34.0-46.0) % RDW (11.5-15.5) % Plt Count (150-450) k/uL Neutrophils # (Manual) (1.3-7.7) k/uL Lymphocytes # (Manual) (1.0-4.8) k/uL Nucleated RBCs (0-0) /100 WBC PT (9.0-12.0) sec INR (<1.2) ABG pH (7.35-7.45) ABG pCO2 (35-45) mmHg ABG pO2 (83-108) mmHg ABG HCO3 (21-25) mmol/L ABG Total CO2 (19-24) mmol/L ABG O2 Saturation (94-97) % ABG Lactic Acid (0.5-1.6) mmol/L Sodium 133 L (137-145) mmol/L Potassium (3.5-5.1) mmol/L Chloride 97 L (98-107) mmol/L Carbon Dioxide 12 L (22-30) mmol/L BUN 59 H (7-17) mg/dL Creatinine 3.08 H (0.52-1.04) mg/dL Glucose 154 H (74-99) mg/dL POC Glucose (mg/dL) 139 H 194 H (75-99) mg/dL Plasma Lactic Acid Surya (0.7-2.0) mmol/L Calcium 7.5 L (8.4-10.2) mg/dL Total Bilirubin 4.0 H (0.2-1.3) mg/dL AST 9184 H (14-36) U/L ALT 4865 H (9-52) U/L Total Creatine Kinase (30-135) U/L CK-MB (CK-2) (0.0-2.4) ng/mL Total Protein 4.8 L (6.3-8.2) g/dL Albumin 2.6 L (3.5-5.0) g/dL Urine Appearance (Clear) Urine Protein (Negative) Urine Blood (Negative) Ur Leukocyte Esterase (Negative) Urine RBC (0-5) /hpf Urine WBC (0-5) /hpf Amorphous Sediment (None) /hpf Urine Bacteria (None) /hpf Urine Mucus (None) /hpf Crossmatch 03/08/18 03/08/18 03/08/18 Range/Units 16:00 16:00 16:00 WBC 14.6 H (3.8-10.6) k/uL RBC 2.08 L (3.80-5.40) m/uL Hgb 5.9 L* D (11.4-16.0) gm/dL Hct 18.7 L* (34.0-46.0) % RDW 16.4 H (11.5-15.5) % Plt Count 69 L (150-450) k/uL Neutrophils # (Manual) 13.80 H (1.3-7.7) k/uL Lymphocytes # (Manual) 0.73 L (1.0-4.8) k/uL Nucleated RBCs 2 H (0-0) /100 WBC PT 49.6 H (9.0-12.0) sec INR 5.5 H* (<1.2) ABG pH (7.35-7.45) ABG pCO2 (35-45) mmHg ABG pO2 (83-108) mmHg ABG HCO3 (21-25) mmol/L ABG Total CO2 (19-24) mmol/L ABG O2 Saturation (94-97) % ABG Lactic Acid (0.5-1.6) mmol/L Sodium (137-145) mmol/L Potassium (3.5-5.1) mmol/L Chloride (98-107) mmol/L Carbon Dioxide (22-30) mmol/L BUN (7-17) mg/dL Creatinine (0.52-1.04) mg/dL Glucose (74-99) mg/dL POC Glucose (mg/dL) (75-99) mg/dL Plasma Lactic Acid Surya (0.7-2.0) mmol/L Calcium (8.4-10.2) mg/dL Total Bilirubin (0.2-1.3) mg/dL AST (14-36) U/L ALT (9-52) U/L Total Creatine Kinase 825 H (30-135) U/L CK-MB (CK-2) 13.2 H (0.0-2.4) ng/mL Total Protein (6.3-8.2) g/dL Albumin (3.5-5.0) g/dL Urine Appearance (Clear) Urine Protein (Negative) Urine Blood (Negative) Ur Leukocyte Esterase (Negative) Urine RBC (0-5) /hpf Urine WBC (0-5) /hpf Amorphous Sediment (None) /hpf Urine Bacteria (None) /hpf Urine Mucus (None) /hpf Crossmatch 03/08/18 03/08/18 03/09/18 Range/Units 20:45 23:32 02:30 WBC 14.7 H (3.8-10.6) k/uL RBC 2.79 L (3.80-5.40) m/uL Hgb 8.2 L D (11.4-16.0) gm/dL Hct 24.8 L (34.0-46.0) % RDW 15.9 H (11.5-15.5) % Plt Count 94 L (150-450) k/uL Neutrophils # (Manual) 14.10 H (1.3-7.7) k/uL Lymphocytes # (Manual) 0.44 L (1.0-4.8) k/uL Nucleated RBCs 8 H (0-0) /100 WBC PT (9.0-12.0) sec INR (<1.2) ABG pH (7.35-7.45) ABG pCO2 (35-45) mmHg ABG pO2 (83-108) mmHg ABG HCO3 (21-25) mmol/L ABG Total CO2 (19-24) mmol/L ABG O2 Saturation (94-97) % ABG Lactic Acid (0.5-1.6) mmol/L Sodium (137-145) mmol/L Potassium (3.5-5.1) mmol/L Chloride (98-107) mmol/L Carbon Dioxide (22-30) mmol/L BUN (7-17) mg/dL Creatinine (0.52-1.04) mg/dL Glucose (74-99) mg/dL POC Glucose (mg/dL) 145 H 166 H (75-99) mg/dL Plasma Lactic Acid Surya (0.7-2.0) mmol/L Calcium (8.4-10.2) mg/dL Total Bilirubin (0.2-1.3) mg/dL AST (14-36) U/L ALT (9-52) U/L Total Creatine Kinase (30-135) U/L CK-MB (CK-2) (0.0-2.4) ng/mL Total Protein (6.3-8.2) g/dL Albumin (3.5-5.0) g/dL Urine Appearance (Clear) Urine Protein (Negative) Urine Blood (Negative) Ur Leukocyte Esterase (Negative) Urine RBC (0-5) /hpf Urine WBC (0-5) /hpf Amorphous Sediment (None) /hpf Urine Bacteria (None) /hpf Urine Mucus (None) /hpf Crossmatch 03/09/18 03/09/18 03/09/18 Range/Units 02:30 02:30 03:43 WBC (3.8-10.6) k/uL RBC (3.80-5.40) m/uL Hgb (11.4-16.0) gm/dL Hct (34.0-46.0) % RDW (11.5-15.5) % Plt Count (150-450) k/uL Neutrophils # (Manual) (1.3-7.7) k/uL Lymphocytes # (Manual) (1.0-4.8) k/uL Nucleated RBCs (0-0) /100 WBC PT 48.1 H (9.0-12.0) sec INR 5.3 H* (<1.2) ABG pH (7.35-7.45) ABG pCO2 (35-45) mmHg ABG pO2 (83-108) mmHg ABG HCO3 (21-25) mmol/L ABG Total CO2 (19-24) mmol/L ABG O2 Saturation (94-97) % ABG Lactic Acid (0.5-1.6) mmol/L Sodium 135 L (137-145) mmol/L Potassium 3.1 L (3.5-5.1) mmol/L Chloride (98-107) mmol/L Carbon Dioxide 19 L (22-30) mmol/L BUN 57 H (7-17) mg/dL Creatinine 2.62 H (0.52-1.04) mg/dL Glucose 104 H (74-99) mg/dL POC Glucose (mg/dL) 140 H (75-99) mg/dL Plasma Lactic Acid Surya (0.7-2.0) mmol/L Calcium 7.2 L (8.4-10.2) mg/dL Total Bilirubin 4.4 H (0.2-1.3) mg/dL AST 8702 H (14-36) U/L ALT 4684 H (9-52) U/L Total Creatine Kinase (30-135) U/L CK-MB (CK-2) (0.0-2.4) ng/mL Total Protein 4.7 L (6.3-8.2) g/dL Albumin 2.5 L (3.5-5.0) g/dL Urine Appearance (Clear) Urine Protein (Negative) Urine Blood (Negative) Ur Leukocyte Esterase (Negative) Urine RBC (0-5) /hpf Urine WBC (0-5) /hpf Amorphous Sediment (None) /hpf Urine Bacteria (None) /hpf Urine Mucus (None) /hpf Crossmatch 03/09/18 03/09/18 03/09/18 Range/Units 05:40 06:50 07:14 WBC (3.8-10.6) k/uL RBC (3.80-5.40) m/uL Hgb (11.4-16.0) gm/dL Hct (34.0-46.0) % RDW (11.5-15.5) % Plt Count (150-450) k/uL Neutrophils # (Manual) (1.3-7.7) k/uL Lymphocytes # (Manual) (1.0-4.8) k/uL Nucleated RBCs (0-0) /100 WBC PT (9.0-12.0) sec INR (<1.2) ABG pH 7.69 H* 7.54 H (7.35-7.45) ABG pCO2 22 L (35-45) mmHg ABG pO2 64 L (83-108) mmHg ABG HCO3 27 H 29 H (21-25) mmol/L ABG Total CO2 28 H 31 H (19-24) mmol/L ABG O2 Saturation 98.2 H (94-97) % ABG Lactic Acid (0.5-1.6) mmol/L Sodium (137-145) mmol/L Potassium (3.5-5.1) mmol/L Chloride (98-107) mmol/L Carbon Dioxide (22-30) mmol/L BUN (7-17) mg/dL Creatinine (0.52-1.04) mg/dL Glucose (74-99) mg/dL POC Glucose (mg/dL) 152 H (75-99) mg/dL Plasma Lactic Acid Surya (0.7-2.0) mmol/L Calcium (8.4-10.2) mg/dL Total Bilirubin (0.2-1.3) mg/dL AST (14-36) U/L ALT (9-52) U/L Total Creatine Kinase (30-135) U/L CK-MB (CK-2) (0.0-2.4) ng/mL Total Protein (6.3-8.2) g/dL Albumin (3.5-5.0) g/dL Urine Appearance (Clear) Urine Protein (Negative) Urine Blood (Negative) Ur Leukocyte Esterase (Negative) Urine RBC (0-5) /hpf Urine WBC (0-5) /hpf Amorphous Sediment (None) /hpf Urine Bacteria (None) /hpf Urine Mucus (None) /hpf Crossmatch 03/09/18 03/09/18 03/09/18 Range/Units 07:34 10:40 12:08 WBC (3.8-10.6) k/uL RBC (3.80-5.40) m/uL Hgb (11.4-16.0) gm/dL Hct (34.0-46.0) % RDW (11.5-15.5) % Plt Count (150-450) k/uL Neutrophils # (Manual) (1.3-7.7) k/uL Lymphocytes # (Manual) (1.0-4.8) k/uL Nucleated RBCs (0-0) /100 WBC PT (9.0-12.0) sec INR (<1.2) ABG pH 7.48 H (7.35-7.45) ABG pCO2 (35-45) mmHg ABG pO2 109 H (83-108) mmHg ABG HCO3 31 H (21-25) mmol/L ABG Total CO2 32 H (19-24) mmol/L ABG O2 Saturation 98.6 H (94-97) % ABG Lactic Acid 2.9 H* (0.5-1.6) mmol/L Sodium (137-145) mmol/L Potassium (3.5-5.1) mmol/L Chloride (98-107) mmol/L Carbon Dioxide (22-30) mmol/L BUN (7-17) mg/dL Creatinine (0.52-1.04) mg/dL Glucose (74-99) mg/dL POC Glucose (mg/dL) 155 H (75-99) mg/dL Plasma Lactic Acid Surya (0.7-2.0) mmol/L Calcium (8.4-10.2) mg/dL Total Bilirubin (0.2-1.3) mg/dL AST (14-36) U/L ALT (9-52) U/L Total Creatine Kinase (30-135) U/L CK-MB (CK-2) (0.0-2.4) ng/mL Total Protein (6.3-8.2) g/dL Albumin (3.5-5.0) g/dL Urine Appearance (Clear) Urine Protein (Negative) Urine Blood (Negative) Ur Leukocyte Esterase (Negative) Urine RBC (0-5) /hpf Urine WBC (0-5) /hpf Amorphous Sediment (None) /hpf Urine Bacteria (None) /hpf Urine Mucus (None) /hpf Crossmatch 03/09/18 Range/Units 12:22 WBC (3.8-10.6) k/uL RBC (3.80-5.40) m/uL Hgb (11.4-16.0) gm/dL Hct (34.0-46.0) % RDW (11.5-15.5) % Plt Count (150-450) k/uL Neutrophils # (Manual) (1.3-7.7) k/uL Lymphocytes # (Manual) (1.0-4.8) k/uL Nucleated RBCs (0-0) /100 WBC PT (9.0-12.0) sec INR (<1.2) ABG pH (7.35-7.45) ABG pCO2 (35-45) mmHg ABG pO2 (83-108) mmHg ABG HCO3 (21-25) mmol/L ABG Total CO2 (19-24) mmol/L ABG O2 Saturation (94-97) % ABG Lactic Acid (0.5-1.6) mmol/L Sodium (137-145) mmol/L Potassium (3.5-5.1) mmol/L Chloride (98-107) mmol/L Carbon Dioxide (22-30) mmol/L BUN (7-17) mg/dL Creatinine (0.52-1.04) mg/dL Glucose (74-99) mg/dL POC Glucose (mg/dL) 169 H (75-99) mg/dL Plasma Lactic Acid Surya (0.7-2.0) mmol/L Calcium (8.4-10.2) mg/dL Total Bilirubin (0.2-1.3) mg/dL AST (14-36) U/L ALT (9-52) U/L Total Creatine Kinase (30-135) U/L CK-MB (CK-2) (0.0-2.4) ng/mL Total Protein (6.3-8.2) g/dL Albumin (3.5-5.0) g/dL Urine Appearance (Clear) Urine Protein (Negative) Urine Blood (Negative) Ur Leukocyte Esterase (Negative) Urine RBC (0-5) /hpf Urine WBC (0-5) /hpf Amorphous Sediment (None) /hpf Urine Bacteria (None) /hpf Urine Mucus (None) /hpf Crossmatch Microbiology - Last 24 Hours (Table) 03/08/18 10:40 Urine Culture - Final Urine,Catheterized 03/06/18 08:22 Blood Culture - Preliminary Blood No Growth after 72 hours 03/08/18 11:12 Gram Stain - Preliminary Sputum Sputum Culture - Preliminary Assessment and Plan (1) Cholecystitis Narrative/Plan: Patient doing better at this time. No surgical intervention planned at this time. We'll sign off. Please contact if the patient has any evidence of abdominal sepsis. Current Visit: Yes Status: Acute Code(s): K81.9 - CHOLECYSTITIS, UNSPECIFIED SNOMED Code(s): 90685903
--- NOTE | 2018-03-09 13:30 | PN ---
PROGRESS NOTE Aga is admitted to hospital with congestive heart failure, had elevated liver enzymes and subsequently developed hypotension and renal failure. She is currently intubated on vent and sedated. On exam, heart rate is 80 beats per minute. Blood pressure is 103/60. Respiratory rate is 18. Chest exam reveals occasional crackles bilaterally. Heart exam reveals first and second heart sounds. No gallop. Exam of the extremities did not reveal any edema. Peripheral pulses are felt. Her lactic acid is 2.9. Blood gases show a pH of 7.4, pO2 of 109, pCO2 of 32. Potassium is 3.1. BUN is 57, creatinine is 2.6. Hemoglobin that dropped to 5.9 yesterday is up to 8.2. AST, ALT are elevated at . INR was over 10. It has come down to 5.4. Patient current medications include Xanax, aspirin, insulin, Toprol XL, Levophed. ASSESSMENT: 1. Acute exacerbation of chronic systolic heart failure. 2. Hypotension with acute liver injury. 3. Possible sepsis. 4. Acute onset renal failure. PLAN: Will start back the diuretics whenever it is okay with the steam oven operator. Continue the small dose of beta richmond that the patient is on. Patient's Xarelto is on hold. Patient has liver failure with coagulopathy, elevated liver enzymes. This could be related to hypotension, congestive heart failure or could be related to gallstones. MMODL / IJN: [id number] /
--- NOTE | 2018-03-09 14:54 | PN ---
PROGRESS NOTE The patient is seen for followup for acute kidney injury secondary to hypotension hypoperfusion. Her urine output has been a great at 100-150 mL an hour. Levophed is down considerably. Patient remains on IV fluids. She has not had any active bleeding. The nursing staff does report that she oozes a lot from any IV sites. Lactic acid was down to 2.9, hemoglobin 8.2 g/dL this morning. Renal function has improved with creatinine down to 2.62. EXAMINATION: Patient remains on the vent. She is sedated. Blood pressure this morning was 105/59, heart rate 87 per minute. She is afebrile. Examination of the heart S1, S2. Examination of the lungs bilateral breath sounds are heard. Abdomen is soft, nontender. Examination of lower extremities shows no significant edema. METAL BURRER exam cannot be performed. LABS: From this morning show sodium 135, potassium 3.1, BUN 57, serum creatinine 2.62, hemoglobin 8.2 g/dL. INR down to 5.3, AST 8702, and ALT is down to 4684. ASSESSMENT: 1. Acute kidney injury secondary to shock, hypotension, hypoperfusion, ATN, nonoliguric, with improving renal function. Continue to wean down pressors. Continue with IV fluids and empiric antibiotics. 2. Severe metabolic acidosis, currently improved. The pH is alkalotic. The bicarb drip has already been discontinued. Continue with the D5 0.9 for now. 3. Shock liver, currently improving. 4. Coagulopathy also seems to be improving. INR is down to 5.3, the patient was on Xarelto. She has received FFPs. Since there is no further active bleeding, we will hold off on the which would have been specific for coagulopathy from the Xarelto. However, it is already more than 2 days since the last dose and effects should have been worn off by now. This is discussed with client operations manager. 5. Severe anemia with no active bleeding noted at this time, status post 2 units packed RBCs transfusion. 6. Severe cardiomyopathy, ejection fraction 20-25 percent. PLAN: I agree with discontinuation of bicarb drip. Continue IV fluids. Repeat labs in a.m. Continue empiric antibiotics. Replace potassium. MMODL / IJN: [id number] /
--- NOTE | 2018-03-09 14:57 | P.PN ---
Subjective Progress Note Date: 03/09/18 This is a 72 year-old female. Her primary care physician is Dr. Basil Crowell. Sees Dr. Real Jackson at [facility] She has a past medical history of hypertension, gastroesophageal reflux disease, carotid stenosis and non ischemic cardiomyopathy status post AICD with reported EF 30 -35 %, gout, anxiety and depression. She was recently hospitalized on June 08 following a fall secondary to dizziness with orthostatic changes ruled out. She ended up having a left radial fracture and left pelvic fracture. She was seen by orthopedics and they recommended splint and sling to the left arm and toe-touch weightbearing on the left lower extremity. Patient was again admitted on June 20 with confusion likely secondary to tramadol. She did present with history of passing out. AICD interrogation was done during the admission and found to have normal service function. Patient was again seen in 2017 with altered mental status sec to benzodiazepine which was held. Last seen on January for acute chest pain but stress test was negative Patisammn was admitted for bilateral pneumonia with CHF exacerbation. Patient comes in again with acute shortness of breath associated with cough with sputum production. Patient states she's been noticing reddish's phlegm production for the past 2 weeks. She states she was never well was discharged from the hospital. Patient had a follow-up appointment with Dr. Schaffer tomorrow but hasn't seen a primary care physician for the past 2 weeks. Patient received breathing treatments via EMS before coming to the hospital. There was slight improvement in symptoms on arrival to the ER but patient was found to be dyspneic in the ER. Vitas obtain suggested temp of 98.5, pulse rate 104, blood pressure 133/86, saturating well on 97% on 2 L which is patient' s baseline. Chest x-ray obtained suggested cardiomegaly and COPD but no consolidation with concern for pneumonia. Labs ordered suggestive hemoglobin 10.3 which is stable from the previous admissions. Her INR was 2.5 but patient is not on Coumadin. Also elevated was d-dimer 4.28. Creatinine is above the baseline of 1.2. LFTs were elevated with AST 1448, AST 1090, alkaline phosphatase 170. ProBNP elevated to 18,300. Troponin times 10.030 albumin 3.3. Based on patient's findings and symptoms there is a concern for pulmonary embolism though CTA cannot be ordered due to increased creatinine. V/Q scan ordered. Due to the hepatic congestion an acute elevation in liver enzymes liver ultrasound ordered to rule out cholecystitis/choledocholithiasis. Patient also complaining of significant shoulder pain and limited to the joint mobility likely secondary to arthritis. Pro-calcitonin ordered. Acute hepatitis panel ordered 03/07: Shoulder x-ray was negative. VQ scan shows multiple matching defects corresponds to intermediate probability of pulmonary embolism. Pulmonary is on consult. Patient has been seen by cardiology for acute exacerbation of chronic systolic heart failure with recommendations to continue IV Lasix. We did decrease Lasix to 40 mg IV daily. Echocardiogram report is pending. Patient is complaining of cough that is nonproductive and denies any blood in her cough. Robitussin added. Her shortness of breath is improved. Her pain in her shoulder is okay at this time. She does complain of nausea. Abdominal ultrasound showed probable tiny gallstones. Mild gallbladder wall thickening consistent with acute on chronic cholecystitis. No dilated ducts. Dr. Kaye plans no intervention at this time await GI evaluation. Patient is on a full liquid diet and fluid restriction of 2000 ML's added. 03/08: Last evening patient has not run off-colored 13 beats of V. tach and heart rate of 150-170. A Team was called and patient was in A. fib RVR. Patient was given IV magnesium and cardiology ordered Lopressor. A. fib was better controlled rate and started amiodarone bolus and protocol per Dr. Merino. Early this morning, another A Team was called for blood pressure of 56 /37 and patient was ordered for 500 mL bolus and transferred to ICU and started on vasopressors. Amiodarone drip was stopped. Patient required high-dose norepinephrine, lines were placed by Dr. Lauri Daley in, patient became lethargic and encephalopathy. Case discussed with the patient's and he wanted the patient intubated and patient was intubated and on mechanical ventilation. She was noted to have leukocytosis, anemia and thrombocytopenia, INR is greater than 10, liver function test are significantly elevated as well as CK and renal function. Amylase this morning was 114 and lipase 1053. 03/09: Patient remains intubated and on mechanical ventilation. She has been afebrile. She remains on norepinephrine. She is status post 2 unit packed RBCs as well as fresh frozen plasma. White count is down to 14.6, hemoglobin is 8.2 and platelet count is 94. Dr. Kaye has signed off the case as there is no evidence of abdominal sepsis. Patient is also followed by GI, nephrology, licensed architect. Liver function tests are slightly improved from yesterday. INR this morning is 5.3. Patient is status post vitamin K yesterday and repeat today. Objective - Vital Signs Vital signs: Vital Signs Temp 96.3 F L 03/09/18 13:45 Pulse 85 03/09/18 13:45 Resp 16 03/09/18 13:45 BP 111/61 03/09/18 13:45 Pulse Ox 99 03/09/18 13:45 Intake & Output 03/08/18 03/09/18 03/09/18 18:59 06:59 18:59 Intake Total 4696.26 3856.936 1271.331 Output Total 467 1330 600 Balance 4229.26 2526.936 671.331 Weight 82.8 kg Intake: IV 3307.26 1390 553 0.9 NS pressure bag 18 0.9 bolus 2000 DOBUTamine DRIP 500 mg In 37.26 Dextrose/Water 1 250ml. bag @ 2.5 MCG/KG/MIN 6.21 mls/hr IV .Q24H [facility] Rx#: [id number] Dextrose 5% in Water 1, 700 1150 100 000 ml @ 100 mls/hr IV . [id number] ONE with Sodium Bicarb (1 Meq/ml) 150 ml Rx#:[id number] Dextrose 5%-0.9% NaCl 1, 375 000 ml @ 75 mls/hr IV . [id number] [facility]ULA Rx#:[id number] Meropenem 2 gm In Sodium 100 Chloride 0.9% 100 ml @ 200 mls/hr IVPB ONCE STA Rx#:[id number] Sodium Chloride 0.9% 1, 220 240 60 000 ml @ 20 mls/hr IV . Q24H [facility] Rx#:[id number] Vancomycin 1,500 mg In 250 Sodium Chloride 0.9% 250 ml @ 125 mls/hr IVPB ONCE STA Rx#:[id number] Intake, IV Titration 50 633.936 200.331 Amount DOBUTamine DRIP 500 mg In 42.228 Dextrose/Water 1 250ml. bag @ 2.5 MCG/KG/MIN 6.21 mls/hr IV .Q24H [facility] Rx#: [id number] Norepinephrine 16 mg In 391.708 Sodium Chloride 0.9% 250 ml @ Titrate IV .Q0M [facility] Rx#:[id number] Phytonadione 10 mg In 50 Sodium Chloride 0.9% 50 ml @ 100 mls/hr IVPB ONCE STA Rx#:[id number] Phytonadione 10 mg In 100 Sodium Chloride 0.9% 50 ml @ 100 mls/hr IVPB ONCE STA Rx#:[id number] Propofol 1,000 mg In 200 100.331 Empty Bag 1 bag @ Titrate IV .Q0M [facility] Rx#: [id number] Tube Feeding 240 Blood Product 1339 1593 518 Ffp 24 Cp2d Unit 0 [id number] Ffp 24 Cp2d Unit 0 [id number] Ffp 24 Cp2d Unit 238 [id number] Ffp 24 Cp2d Unit 0 [id number] Ffp 24 Cp2d Unit 212 [id number] Ffp 24 Cpd Unit 306 [id number] Ffp 24 Cpd Unit 274 [id number] Ffp 24 Cpd Unit 0 [id number] Rc Pheresis 2 As3 Unit 0 0 [id number] Rc Pheresis 2 As3 Unit 310 [id number] Output: Urine 467 1330 600 Other: Voiding Method Indwelling Catheter Indwelling Catheter Indwelling Catheter ABP, PAP, CO, CI - Last Documented Arterial Blood Pressure 98/62 - Exam General appearance: no acute distress, obese - EENT Eyes: anicteric sclerae, PERRLA, normal appearance ENT: hearing grossly normal, intubated on mechanical ventilation, ET and orogastric tube in place - Neck Neck: no lymphadenopathy, normal ROM, no other, no rigidity, no stridor, no thyromegaly - Respiratory Respiratory: bilateral: Decreased bilaterally. No rhonchi or wheezing heard - Cardiovascular Rhythm: regular Heart sounds: normal: S1, S2 Abnormal Heart Sounds: no systolic murmur, no diastolic murmur, no rub, no S3 Gallop, no S4 Gallop - Gastrointestinal General gastrointestinal: normal bowel sounds, soft - Integumentary Integumentary: no rash - Neurologic Neurologic: CNII-XII intact - Musculoskeletal Musculoskeletal: gait normal, strength equal bilaterally - Psychiatric Psychiatric: Sedated - Labs CBC & Chem 7: 03/09/18 02:30 03/09/18 13:10 Labs: Abnormal Lab Results - Last 24 Hours (Table) 03/08/18 03/08/18 03/08/18 Range/Units 12:00 13:25 15:55 WBC (3.8-10.6) k/uL RBC (3.80-5.40) m/uL Hgb (11.4-16.0) gm/dL Hct (34.0-46.0) % RDW (11.5-15.5) % Plt Count (150-450) k/uL Neutrophils # (Manual) (1.3-7.7) k/uL Lymphocytes # (Manual) (1.0-4.8) k/uL Nucleated RBCs (0-0) /100 WBC PT (9.0-12.0) sec INR (<1.2) ABG pH (7.35-7.45) ABG pCO2 (35-45) mmHg ABG pO2 (83-108) mmHg ABG HCO3 (21-25) mmol/L ABG Total CO2 (19-24) mmol/L ABG O2 Saturation (94-97) % ABG Lactic Acid (0.5-1.6) mmol/L Sodium (137-145) mmol/L Potassium (3.5-5.1) mmol/L Chloride (98-107) mmol/L Carbon Dioxide (22-30) mmol/L BUN (7-17) mg/dL Creatinine (0.52-1.04) mg/dL Glucose (74-99) mg/dL POC Glucose (mg/dL) 194 H (75-99) mg/dL Plasma Lactic Acid Surya 10.7 H* (0.7-2.0) mmol/L Calcium (8.4-10.2) mg/dL Total Bilirubin (0.2-1.3) mg/dL AST (14-36) U/L ALT (9-52) U/L Total Creatine Kinase (30-135) U/L CK-MB (CK-2) (0.0-2.4) ng/mL Total Protein (6.3-8.2) g/dL Albumin (3.5-5.0) g/dL Crossmatch See Detail 03/08/18 03/08/18 03/08/18 Range/Units 16:00 16:00 16:00 WBC 14.6 H (3.8-10.6) k/uL RBC 2.08 L (3.80-5.40) m/uL Hgb 5.9 L* D (11.4-16.0) gm/dL Hct 18.7 L* (34.0-46.0) % RDW 16.4 H (11.5-15.5) % Plt Count 69 L (150-450) k/uL Neutrophils # (Manual) 13.80 H (1.3-7.7) k/uL Lymphocytes # (Manual) 0.73 L (1.0-4.8) k/uL Nucleated RBCs 2 H (0-0) /100 WBC PT (9.0-12.0) sec INR (<1.2) ABG pH (7.35-7.45) ABG pCO2 (35-45) mmHg ABG pO2 (83-108) mmHg ABG HCO3 (21-25) mmol/L ABG Total CO2 (19-24) mmol/L ABG O2 Saturation (94-97) % ABG Lactic Acid (0.5-1.6) mmol/L Sodium 133 L (137-145) mmol/L Potassium (3.5-5.1) mmol/L Chloride 97 L (98-107) mmol/L Carbon Dioxide 12 L (22-30) mmol/L BUN 59 H (7-17) mg/dL Creatinine 3.08 H (0.52-1.04) mg/dL Glucose 154 H (74-99) mg/dL POC Glucose (mg/dL) (75-99) mg/dL Plasma Lactic Acid Surya (0.7-2.0) mmol/L Calcium 7.5 L (8.4-10.2) mg/dL Total Bilirubin 4.0 H (0.2-1.3) mg/dL AST 9184 H (14-36) U/L ALT 4865 H (9-52) U/L Total Creatine Kinase 825 H (30-135) U/L CK-MB (CK-2) 13.2 H (0.0-2.4) ng/mL Total Protein 4.8 L (6.3-8.2) g/dL Albumin 2.6 L (3.5-5.0) g/dL Crossmatch 03/08/18 03/08/18 03/08/18 Range/Units 16:00 20:45 23:32 WBC (3.8-10.6) k/uL RBC (3.80-5.40) m/uL Hgb (11.4-16.0) gm/dL Hct (34.0-46.0) % RDW (11.5-15.5) % Plt Count (150-450) k/uL Neutrophils # (Manual) (1.3-7.7) k/uL Lymphocytes # (Manual) (1.0-4.8) k/uL Nucleated RBCs (0-0) /100 WBC PT 49.6 H (9.0-12.0) sec INR 5.5 H* (<1.2) ABG pH (7.35-7.45) ABG pCO2 (35-45) mmHg ABG pO2 (83-108) mmHg ABG HCO3 (21-25) mmol/L ABG Total CO2 (19-24) mmol/L ABG O2 Saturation (94-97) % ABG Lactic Acid (0.5-1.6) mmol/L Sodium (137-145) mmol/L Potassium (3.5-5.1) mmol/L Chloride (98-107) mmol/L Carbon Dioxide (22-30) mmol/L BUN (7-17) mg/dL Creatinine (0.52-1.04) mg/dL Glucose (74-99) mg/dL POC Glucose (mg/dL) 145 H 166 H (75-99) mg/dL Plasma Lactic Acid Surya (0.7-2.0) mmol/L Calcium (8.4-10.2) mg/dL Total Bilirubin (0.2-1.3) mg/dL AST (14-36) U/L ALT (9-52) U/L Total Creatine Kinase (30-135) U/L CK-MB (CK-2) (0.0-2.4) ng/mL Total Protein (6.3-8.2) g/dL Albumin (3.5-5.0) g/dL Crossmatch 03/09/18 03/09/18 03/09/18 Range/Units 02:30 02:30 02:30 WBC 14.7 H (3.8-10.6) k/uL RBC 2.79 L (3.80-5.40) m/uL Hgb 8.2 L D (11.4-16.0) gm/dL Hct 24.8 L (34.0-46.0) % RDW 15.9 H (11.5-15.5) % Plt Count 94 L (150-450) k/uL Neutrophils # (Manual) 14.10 H (1.3-7.7) k/uL Lymphocytes # (Manual) 0.44 L (1.0-4.8) k/uL Nucleated RBCs 8 H (0-0) /100 WBC PT 48.1 H (9.0-12.0) sec INR 5.3 H* (<1.2) ABG pH (7.35-7.45) ABG pCO2 (35-45) mmHg ABG pO2 (83-108) mmHg ABG HCO3 (21-25) mmol/L ABG Total CO2 (19-24) mmol/L ABG O2 Saturation (94-97) % ABG Lactic Acid (0.5-1.6) mmol/L Sodium 135 L (137-145) mmol/L Potassium 3.1 L (3.5-5.1) mmol/L Chloride (98-107) mmol/L Carbon Dioxide 19 L (22-30) mmol/L BUN 57 H (7-17) mg/dL Creatinine 2.62 H (0.52-1.04) mg/dL Glucose 104 H (74-99) mg/dL POC Glucose (mg/dL) (75-99) mg/dL Plasma Lactic Acid Surya (0.7-2.0) mmol/L Calcium 7.2 L (8.4-10.2) mg/dL Total Bilirubin 4.4 H (0.2-1.3) mg/dL AST 8702 H (14-36) U/L ALT 4684 H (9-52) U/L Total Creatine Kinase (30-135) U/L CK-MB (CK-2) (0.0-2.4) ng/mL Total Protein 4.7 L (6.3-8.2) g/dL Albumin 2.5 L (3.5-5.0) g/dL Crossmatch 03/09/18 03/09/18 03/09/18 Range/Units 03:43 05:40 06:50 WBC (3.8-10.6) k/uL RBC (3.80-5.40) m/uL Hgb (11.4-16.0) gm/dL Hct (34.0-46.0) % RDW (11.5-15.5) % Plt Count (150-450) k/uL Neutrophils # (Manual) (1.3-7.7) k/uL Lymphocytes # (Manual) (1.0-4.8) k/uL Nucleated RBCs (0-0) /100 WBC PT (9.0-12.0) sec INR (<1.2) ABG pH 7.69 H* (7.35-7.45) ABG pCO2 22 L (35-45) mmHg ABG pO2 64 L (83-108) mmHg ABG HCO3 27 H (21-25) mmol/L ABG Total CO2 28 H (19-24) mmol/L ABG O2 Saturation (94-97) % ABG Lactic Acid (0.5-1.6) mmol/L Sodium (137-145) mmol/L Potassium (3.5-5.1) mmol/L Chloride (98-107) mmol/L Carbon Dioxide (22-30) mmol/L BUN (7-17) mg/dL Creatinine (0.52-1.04) mg/dL Glucose (74-99) mg/dL POC Glucose (mg/dL) 140 H 152 H (75-99) mg/dL Plasma Lactic Acid Surya (0.7-2.0) mmol/L Calcium (8.4-10.2) mg/dL Total Bilirubin (0.2-1.3) mg/dL AST (14-36) U/L ALT (9-52) U/L Total Creatine Kinase (30-135) U/L CK-MB (CK-2) (0.0-2.4) ng/mL Total Protein (6.3-8.2) g/dL Albumin (3.5-5.0) g/dL Crossmatch 03/09/18 03/09/18 03/09/18 Range/Units 07:14 07:34 10:40 WBC (3.8-10.6) k/uL RBC (3.80-5.40) m/uL Hgb (11.4-16.0) gm/dL Hct (34.0-46.0) % RDW (11.5-15.5) % Plt Count (150-450) k/uL Neutrophils # (Manual) (1.3-7.7) k/uL Lymphocytes # (Manual) (1.0-4.8) k/uL Nucleated RBCs (0-0) /100 WBC PT (9.0-12.0) sec INR (<1.2) ABG pH 7.54 H (7.35-7.45) ABG pCO2 (35-45) mmHg ABG pO2 (83-108) mmHg ABG HCO3 29 H (21-25) mmol/L ABG Total CO2 31 H (19-24) mmol/L ABG O2 Saturation 98.2 H (94-97) % ABG Lactic Acid 2.9 H* (0.5-1.6) mmol/L Sodium (137-145) mmol/L Potassium (3.5-5.1) mmol/L Chloride (98-107) mmol/L Carbon Dioxide (22-30) mmol/L BUN (7-17) mg/dL Creatinine (0.52-1.04) mg/dL Glucose (74-99) mg/dL POC Glucose (mg/dL) 155 H (75-99) mg/dL Plasma Lactic Acid Surya (0.7-2.0) mmol/L Calcium (8.4-10.2) mg/dL Total Bilirubin (0.2-1.3) mg/dL AST (14-36) U/L ALT (9-52) U/L Total Creatine Kinase (30-135) U/L CK-MB (CK-2) (0.0-2.4) ng/mL Total Protein (6.3-8.2) g/dL Albumin (3.5-5.0) g/dL Crossmatch 03/09/18 03/09/18 Range/Units 12:08 12:22 WBC (3.8-10.6) k/uL RBC (3.80-5.40) m/uL Hgb (11.4-16.0) gm/dL Hct (34.0-46.0) % RDW (11.5-15.5) % Plt Count (150-450) k/uL Neutrophils # (Manual) (1.3-7.7) k/uL Lymphocytes # (Manual) (1.0-4.8) k/uL Nucleated RBCs (0-0) /100 WBC PT (9.0-12.0) sec INR (<1.2) ABG pH 7.48 H (7.35-7.45) ABG pCO2 (35-45) mmHg ABG pO2 109 H (83-108) mmHg ABG HCO3 31 H (21-25) mmol/L ABG Total CO2 32 H (19-24) mmol/L ABG O2 Saturation 98.6 H (94-97) % ABG Lactic Acid (0.5-1.6) mmol/L Sodium (137-145) mmol/L Potassium (3.5-5.1) mmol/L Chloride (98-107) mmol/L Carbon Dioxide (22-30) mmol/L BUN (7-17) mg/dL Creatinine (0.52-1.04) mg/dL Glucose (74-99) mg/dL POC Glucose (mg/dL) 169 H (75-99) mg/dL Plasma Lactic Acid Surya (0.7-2.0) mmol/L Calcium (8.4-10.2) mg/dL Total Bilirubin (0.2-1.3) mg/dL AST (14-36) U/L ALT (9-52) U/L Total Creatine Kinase (30-135) U/L CK-MB (CK-2) (0.0-2.4) ng/mL Total Protein (6.3-8.2) g/dL Albumin (3.5-5.0) g/dL Crossmatch Microbiology - Last 24 Hours (Table) 03/08/18 10:40 Urine Culture - Final Urine,Catheterized 03/06/18 08:22 Blood Culture - Preliminary Blood No Growth after 72 hours 03/08/18 11:12 Gram Stain - Preliminary Sputum Sputum Culture - Preliminary Assessment and Plan Plan: #1 acute on chronic hypoxic respiratory failure secondary to acute on chronic systolic heart failure, pulmonary edema, intermediate for pulmonary embolism, mild intermittent asthma without exacerbation. Patient had further decline of her respiratory status and required intubation and mechanical ventilation. Off Lasix, off Solu-Medrol, monitor input and output and daily weight. Continue DuoNeb as needed for shortness of breath. Pulmonary consult #2 acute kidney injury with CKD3, metabolic acidosis and hyperkalemia. Nephrology consult. #3 acute transaminitis with increase in alkaline phosphatase. Ultrasound abdomen reveals acute on chronic cholecystitis. Hepatic congestion likely secondary to CHF. Continue meropenem. #4 acute on chronic systolic heart failure with known ejection fraction noted to be 30-35% in January 2018, status post AICD which was interrogated in January 2018. Repeat echocardiogram. Off IV Lasix. Cardiology consult appreciated. #5 cardiogenic shock with multiorgan failure requiring intubation and mechanical ventilation, vasopressors support. Patient is managed in the intensive care unit by Dr. Lang. Consult with nephrology added for acute kidney injury. Patient is currently on sodium bicarb drip, dobutamine drip and norepinephrine drip. #6. Paroxysmal Atrial fibrillation on xarelto rate controlled currently in sinus rhythm. #7 QT prolongation watch for QT prolongation medication avoid Zofran, levofloxacin and other, and QT prolonging medications . #8 hematemesis versus hemoptysis appears chronic. Continue Protonix #9 recurrent depression continue citalopram 40 mg by mouth daily at bedtime #10 gout stable continue allopurinol #11 generalized anxiety disorder continue Xanax 0.5 daily 1 mg at bedtime #12 DVT prophylaxis patient on xarelto #13 GI prophylaxis with Protonix #14 history of mild intermittent asthma, no documented history of COPD. #15. Thrombocytopenia due to shock. #16 DIC secondary to shock. #17 multiorgan failure with acute kidney injury, acute respiratory failure, shock liver, thrombocytopenia and leukocytosis. CODE STATUS full code Discharge plan: To be determined Impression and plan of care have been directed as dictated by the signing physician. Nancy Olivera nurse practitioner acting as scribe for signing physician.
[2018-03-09] MEDS: NOREPINEPHRINE 16 MG in SODIUM CHLORIDE 0.9% 250 ML IV SCH (15:28)
[2018-03-09 16:45] LABS: Glucose,Whole Blood 161 mg/dL (75-99)
[2018-03-09] MEDS: METOPROLOL TARTRATE 25 MG TAB PO SCH (19:07)
[2018-03-09] MEDS: DOBUTamine DRIP 500 MG in DEXTROSE/WATER 1 250ML.BAG IV SCH (19:52)
[2018-03-09 19:55] LABS: Glucose,Whole Blood 150 mg/dL (75-99)
[2018-03-09] MEDS: CITALOPRAM HYDROBROMIDE 20 MG TAB PO SCH (21:37)
[2018-03-10 00:34] LABS: Glucose,Whole Blood 149 mg/dL (75-99)
[2018-03-10] MEDS: INSULIN ASPART 100 UNIT/ML 1 ML 10 ML VIAL SQ SCH ×7 (00:38→23:30)
[2018-03-10] MEDS: PROPOFOL 1,000 MG in EMPTY BAG 1 BAG IV SCH ×2 (00:39→06:07)
[2018-03-10] MEDS: IPRATROPIUM-ALBUTEROL 3 ML NEB INHALATION SCH ×6 (01:23→19:34)
[2018-03-10] MEDS: DEXTROSE 5%-0.9% NACL 1,000 ML IV SCH ×2 (01:35→10:38)
[2018-03-10 04:10] LABS: Glucose,Whole Blood 140 mg/dL (75-99)
[2018-03-10 04:52] LABS: INR 3.4 (<1.2); Prothrombin Time 30.1 sec (9.0-12.0)
[2018-03-10 04:54] LABS: HCT 23.2 % (34.0-46.0); HGB 7.7 gm/dL (11.4-16.0); Hypochromasia Moderate; MCH 30.2 pg (25.0-35.0); MCV 91.5 fL (80.0-100.0); Poikilocytosis Slight; RBC 2.54 m/uL (3.80-5.40); WBC 14.6 k/uL (3.8-10.6)
[2018-03-10 04:56] LABS: Platelet Count 80 k/uL (150-450)
[2018-03-10 05:06] LABS: Calcium 7.6 mg/dL (8.4-10.2); Magnesium 2.2 mg/dL (1.6-2.3); Phosphorus 5.6 mg/dL (2.5-4.5)
[2018-03-10 05:20] LABS: Potassium 4.2 mmol/L (3.5-5.1)
[2018-03-10 05:25] LABS: ABG Base Excess 6.6 mmol/L; ABG HCO3 31 mmol/L (21-25); ABG Oxygen Saturation 96.1 % (94-97); ABG PCO2 45 mmHg (35-45); ABG PH 7.44 (7.35-7.45); ABG PO2 79 mmHg (83-108); ABG TCO2 32 mmol/L (19-24)
[2018-03-10 05:57] LABS: Band Neutrophils % 1 %; Lymphocytes # (M) 1.46 k/uL (1.0-4.8); Monocytes # (M) 0.29 k/uL (0-1.0); Neutrophils % (M) 87 %; Nucleated Red Blood Cells 0 /100 WBC (0-0); Total Cells Counted 100
--- NOTE | 2018-03-10 07:18 | XR ---
EXAMINATION TYPE: XR chest 1V DATE OF EXAM: 03/10/2018 COMPARISON: 03/09/2018 INDICATION: Shortness of breath TECHNIQUE: Single frontal view of the chest is obtained. FINDINGS: The heart size is enlarged. The pulmonary vasculature is normal. There is infiltrate in the right upper lobe which is increasing. Right lower lobe infiltrate remains present. There is likely left lower lobe infiltrate. Small left pleural effusion is not excluded Electronic device overlies left chest. Endotracheal tube is present with tip above. Nasogastric tube transverses the thorax the tip out of t he abdomen. Left central venous catheter is present bilaterally with tip in the axillary region. This is unchange d in position. IMPRESSION: 1. Right central venous catheter with the tip in the region of the right axillary region directed lat erally and not in superior vena cava region. This is unchanged from prior exam. 2. Additional lines and catheters discussed above. 3. Bibasilar infiltrates with worsening right upper lobe infiltrate. Correlate for pneumonia and atel ectasis. 4. Small pleural effusion is not excluded.
[2018-03-10] MEDS: ASPIRIN 81 MG PO SCH (08:41)
[2018-03-10 08:53] LABS: Glucose,Whole Blood 114 mg/dL (75-99)
[2018-03-10] MEDS: FUROSEMIDE 10 MG/ML 10 ML VIAL IV SCH ×2 (09:00→21:51)
[2018-03-10] MEDS: PANTOPRAZOLE 40 MG/10 ML VIAL IVP SCH (09:00)
[2018-03-10] MEDS: guaiFENesin 600 MG TABLET.ER PO SCH ×2 (09:00→22:55)
[2018-03-10] MEDS: SENNOSIDES-DOCUSATE SODIUM 1 EACH TAB PO SCH ×2 (09:00→21:45)
[2018-03-10] MEDS: MEROPENEM 500 MG in SODIUM CHLORIDE 0.9% 50 ML IVPB SCH ×2 (09:01→21:51)
[2018-03-10] MEDS: POTASSIUM CHLORIDE ER 20 MEQ TAB.ER PO SCH (09:01)
[2018-03-10] MEDS: CHLORHEXIDINE GLUCONATE 15 ML CUP MUCOUS MEM SCH ×2 (09:01→21:45)
[2018-03-10] MEDS: ALLOPURINOL 100 MG TAB PO SCH (09:01)
[2018-03-10 09:54] LABS: Albumin 2.6 g/dL (3.5-5.0); Total Bilirubin 4.6 mg/dL (0.2-1.3); Total Protein 4.9 g/dL (6.3-8.2)
--- NOTE | 2018-03-10 11:52 | P.PN ---
Subjective Patient is seen in follow-up for acute kidney injury. Renal function improved with creatinine down to 2.16 today. Patient was noted to have a hemoglobin of 5.9 on March 08 and received 2 units of blood contusion. She has also received multiple units of FFP. Hemoglobin 7.7 today. She is currently on 13 mics of Levophed. Patient was also started on Lasix today. She is nonoliguric. Patient's noted to have a fixed pupil and is scheduled to undergo computed tomography scan today. Vital signs are stable. Currently on vasopressors. General: The patient appeared well nourished and normally developed. HEENT: Head exam is unremarkable. Neck is without jugular venous distension. Intubated. LUNGS: Breath sounds decreased. HEART: Rate and Rhythm are regular. First and second heart sounds normal. No murmurs, rubs or gallops. ABDOMEN: Abdominal exam reveals normal bowel sounds. Non-tender and non- distended. No evidence of peritonitis. EXTREMITITES: No clubbing, cyanosis, or edema. Objective - Vital Signs Vital signs: Vital Signs Temp 94.0 F L 03/10/18 11:30 Pulse 80 03/10/18 11:30 Resp 16 03/10/18 11:30 BP 110/63 03/10/18 11:30 Pulse Ox 94 L 03/10/18 11:30 Intake & Output 03/09/18 03/10/18 03/10/18 18:59 06:59 18:59 Intake Total 2386.876 4909.518 781.329 Output Total 930 630 130 Balance 930.513 911.518 651.329 Weight 92.2 kg 92.2 kg Intake: IV 943 1206 294 0.9 NS pressure bag 33 36 9 Dextrose 5% in Water 1, 100 000 ml @ 100 mls/hr IV . [id number] ONE with Sodium Bicarb (1 Meq/ml) 150 ml Rx#:[id number] Dextrose 5%-0.9% NaCl 1, 750 900 225 000 ml @ 40 mls/hr IV . Q24H [facility] Rx#:[id number] Meropenem 500 mg In 50 Sodium Chloride 0.9% 50 ml @ 100 mls/hr IVPB Q12HR [facility] Rx#:[id number] NS 220 60 Sodium Chloride 0.9% 1, 60 000 ml @ 20 mls/hr IV . Q24H [facility] Rx#:[id number] Intake, IV Titration 399.513 290.518 291.329 Amount Norepinephrine 16 mg In 108.292 221.509 Sodium Chloride 0.9% 250 ml @ Titrate IV .Q0M [facility] Rx#:[id number] Phytonadione 10 mg In 100 Sodium Chloride 0.9% 50 ml @ 100 mls/hr IVPB ONCE [facility] Rx#:[id number] Propofol 1,000 mg In 191.221 290.518 69.820 Empty Bag 1 bag @ Titrate IV .Q0M [facility] Rx#: [id number] Blood Product 518 196 Ffp 24 Cp2d Unit 212 [id number] Ffp 24 Cp2d Unit 196 [id number] Ffp 24 Cp2d Unit 0 [id number] Ffp 24 Cpd Unit 306 [id number] Other 45 Output: Urine 930 630 130 Other: Voiding Method Indwelling Catheter Indwelling Catheter Indwelling Catheter # Voids 35 ABP, PAP, CO, CI - Last Documented Arterial Blood Pressure 109/63 - Labs CBC & Chem 7: 03/10/18 04:15 03/10/18 08:55 Labs: Abnormal Lab Results - Last 24 Hours (Table) 03/09/18 03/09/18 03/09/18 Range/Units 12:08 12:22 16:41 WBC (3.8-10.6) k/uL RBC (3.80-5.40) m/uL Hgb (11.4-16.0) gm/dL Hct (34.0-46.0) % RDW (11.5-15.5) % Plt Count (150-450) k/uL Neutrophils # (Manual) (1.3-7.7) k/uL PT (9.0-12.0) sec INR (<1.2) ABG pH 7.48 H (7.35-7.45) ABG pO2 109 H (83-108) mmHg ABG HCO3 31 H (21-25) mmol/L ABG Total CO2 32 H (19-24) mmol/L ABG O2 Saturation 98.6 H (94-97) % Sodium (137-145) mmol/L Potassium (3.5-5.1) mmol/L BUN (7-17) mg/dL Creatinine (0.52-1.04) mg/dL Glucose (74-99) mg/dL POC Glucose (mg/dL) 169 H 161 H (75-99) mg/dL Calcium (8.4-10.2) mg/dL Phosphorus (2.5-4.5) mg/dL Total Bilirubin (0.2-1.3) mg/dL AST (14-36) U/L ALT (9-52) U/L Alkaline Phosphatase (38-126) U/L Total Protein (6.3-8.2) g/dL Albumin (3.5-5.0) g/dL 03/09/18 03/10/18 03/10/18 Range/Units 19:54 00:33 04:08 WBC (3.8-10.6) k/uL RBC (3.80-5.40) m/uL Hgb (11.4-16.0) gm/dL Hct (34.0-46.0) % RDW (11.5-15.5) % Plt Count (150-450) k/uL Neutrophils # (Manual) (1.3-7.7) k/uL PT (9.0-12.0) sec INR (<1.2) ABG pH (7.35-7.45) ABG pO2 (83-108) mmHg ABG HCO3 (21-25) mmol/L ABG Total CO2 (19-24) mmol/L ABG O2 Saturation (94-97) % Sodium (137-145) mmol/L Potassium (3.5-5.1) mmol/L BUN (7-17) mg/dL Creatinine (0.52-1.04) mg/dL Glucose (74-99) mg/dL POC Glucose (mg/dL) 150 H 149 H 140 H (75-99) mg/dL Calcium (8.4-10.2) mg/dL Phosphorus (2.5-4.5) mg/dL Total Bilirubin (0.2-1.3) mg/dL AST (14-36) U/L ALT (9-52) U/L Alkaline Phosphatase (38-126) U/L Total Protein (6.3-8.2) g/dL Albumin (3.5-5.0) g/dL 03/10/18 03/10/18 03/10/18 Range/Units 04:15 04:15 04:15 WBC 14.6 H (3.8-10.6) k/uL RBC 2.54 L (3.80-5.40) m/uL Hgb 7.7 L (11.4-16.0) gm/dL Hct 23.2 L (34.0-46.0) % RDW 16.0 H (11.5-15.5) % Plt Count 80 L (150-450) k/uL Neutrophils # (Manual) 12.80 H (1.3-7.7) k/uL PT 30.1 H (9.0-12.0) sec INR 3.4 H (<1.2) ABG pH (7.35-7.45) ABG pO2 (83-108) mmHg ABG HCO3 (21-25) mmol/L ABG Total CO2 (19-24) mmol/L ABG O2 Saturation (94-97) % Sodium 136 L (137-145) mmol/L Potassium (3.5-5.1) mmol/L BUN 60 H (7-17) mg/dL Creatinine 2.16 H (0.52-1.04) mg/dL Glucose 124 H (74-99) mg/dL POC Glucose (mg/dL) (75-99) mg/dL Calcium 7.6 L (8.4-10.2) mg/dL Phosphorus 5.6 H (2.5-4.5) mg/dL Total Bilirubin 4.6 H (0.2-1.3) mg/dL AST 3337 H (14-36) U/L ALT 3515 H (9-52) U/L Alkaline Phosphatase 151 H (38-126) U/L Total Protein 4.9 L (6.3-8.2) g/dL Albumin 2.6 L (3.5-5.0) g/dL 03/10/18 03/10/18 03/10/18 Range/Units 05:20 08:51 08:55 WBC (3.8-10.6) k/uL RBC (3.80-5.40) m/uL Hgb (11.4-16.0) gm/dL Hct (34.0-46.0) % RDW (11.5-15.5) % Plt Count (150-450) k/uL Neutrophils # (Manual) (1.3-7.7) k/uL PT (9.0-12.0) sec INR (<1.2) ABG pH (7.35-7.45) ABG pO2 79 L (83-108) mmHg ABG HCO3 31 H (21-25) mmol/L ABG Total CO2 32 H (19-24) mmol/L ABG O2 Saturation (94-97) % Sodium (137-145) mmol/L Potassium 2.8 L (3.5-5.1) mmol/L BUN (7-17) mg/dL Creatinine (0.52-1.04) mg/dL Glucose (74-99) mg/dL POC Glucose (mg/dL) 114 H (75-99) mg/dL Calcium (8.4-10.2) mg/dL Phosphorus (2.5-4.5) mg/dL Total Bilirubin (0.2-1.3) mg/dL AST (14-36) U/L ALT (9-52) U/L Alkaline Phosphatase (38-126) U/L Total Protein (6.3-8.2) g/dL Albumin (3.5-5.0) g/dL Microbiology - Last 24 Hours (Table) 03/08/18 11:12 Gram Stain - Final Sputum Sputum Culture - Final Meg albicans 03/06/18 08:22 Blood Culture - Preliminary Blood No Growth after 96 hours 03/08/18 10:40 Urine Culture - Final Urine,Catheterized Assessment and Plan Plan: Assessment: 1. Nonoliguric acute kidney injury secondary to ATN secondary to hypotension and acute anemia. Creatinine down to 2.16 today. 2. Acute blood loss anemia status post blood transfusion and multiple units of FFP. Hemoglobin 7.7 today. Xarelto held. 3. Severe metabolic acidosis status post bicarb drip. Resolved. 4. Shock liver secondary to hypotension. Improving. 5. Coagulopathy status post blood transfusion and FFP's. Xarelto held. INR trending down. 6. Systolic CHF with ejection fraction of 20-25% with severe tricuspid and mitral regurgitation. 7. Severe pulmonary hypertension. 8. Fixed pupil with concern for acute CVA. Scheduled for computed tomography scan today. 9. Hypokalemia from diuresis. Also no PO intake at this time. Magnesium normal. 10. Hyperphosphatemia secondary to acute kidney injury. Plan: Continue Lasix 60 mg IV twice daily for now. Follow-up computed tomography scan results. Avoid nephrotoxins. Continue to monitor renal function and urine output. Repeat potassium level now and will replace if needed. Add renvela.
--- NOTE | 2018-03-10 12:22 | CT ---
EXAMINATION TYPE: CT brain wo con DATE OF EXAM: 03/10/2018 COMPARISON: Prior head CT 08/23/2017 HISTORY: rule out CVA CT DLP: 1064.20 mGycm Automated exposure control for dose reduction was used. Helical imaging through the brain. FINDINGS: Orogastric tube is in place. There are cerebral vascular calcifications. Partially calcified mass in the inner table of the left frontal lobe is again seen and is essentially stable measuring approximat komal 15 mm. Periventricular white matter shows patchy low attenuation. There is no hemorrhage or hydro cephalus. Calvarium is intact. Paranasal sinuses and mastoid air cells are normal. There is probable age-related atrophy. Orbits show symmetric appearance. IMPRESSION: STABLE EXAM. CONSIDER MRI FOR BETTER EVALUATION.
--- NOTE | 2018-03-10 12:23 | P.PN ---
Progress Note - Text Progress Note Date: 03/10/18 GI rounds: patient off floor for testing
[2018-03-10 13:08] LABS: Glucose,Whole Blood 104 mg/dL (75-99)
--- NOTE | 2018-03-10 13:37 | PN ---
PROGRESS NOTE Aga is a 72-year-old lady with history of cardiomyopathy, atrial fibrillation, congestive heart failure, recent episodes of pneumonia, who presented to hospital with acute exacerbation of chronic systolic heart failure. She deteriorated in the hospital initially having had an episode of atrial fibrillation with rapid ventricular rate and subsequently developed profound hypotension. She was admitted to the intensive care unit with hypotension and possible acute ischemic injury to the liver. She is intubated on vent, developed coagulopathy, worsening renal function, bleeding, renal failure and blood loss anemia. Things are improving. Her liver enzymes are getting better. Renal functions are getting better. Her hemoglobin is stable coagulopathy is improving. She is still intubated, currently on a sedation holiday and efforts are underway to wean and extubate her. PHYSICAL EXAMINATION: On exam heart rate is 90 beats per minute. Blood pressure is 110/63. Respiratory rate is 18. Chest exam reveals diminished air entry at the bases. Heart exam reveals first and second heart sounds. No gallop. No murmur. Abdomen is soft. Examination of the extremities reveals 1+ edema. She has ecchymotic changes. Echocardiogram shows severe LV systolic dysfunction with an ejection fraction of 20%, severe mitral and tricuspid regurgitation, severe pulmonary hypertension. ASSESSMENT: 1. Acute exacerbation of chronic systolic heart failure. 2. Multiorgan failure. 3. Sepsis. 4. Renal failure. 5. Liver failure. PLAN: Will continue current supportive care. The patient is stable cardiac rhythm zamudio. She is on a small dose of beta richmond, which I am going to continue. She is on Levophed, which hopefully can be weaned and stopped. Plans are underway to wean and possibly extubate her. MMODL / IJN: [id number] /
--- NOTE | 2018-03-10 13:50 | P.PN ---
Subjective Progress Note Date: 03/10/18 This is a 72 year-old female. Her primary care physician is Dr. Basil Crowell. Sees Dr. Real Jackson at [facility] She has a past medical history of hypertension, gastroesophageal reflux disease, carotid stenosis and non ischemic cardiomyopathy status post AICD with reported EF 30 -35 %, gout, anxiety and depression. She was recently hospitalized on June 08 following a fall secondary to dizziness with orthostatic changes ruled out. She ended up having a left radial fracture and left pelvic fracture. She was seen by orthopedics and they recommended splint and sling to the left arm and toe-touch weightbearing on the left lower extremity. Patient was again admitted on June 20 with confusion likely secondary to tramadol. She did present with history of passing out. AICD interrogation was done during the admission and found to have normal service function. Patient was again seen in 2017 with altered mental status sec to benzodiazepine which was held. Last seen on January for acute chest pain but stress test was negative Patisammn was admitted for bilateral pneumonia with CHF exacerbation. Patient comes in again with acute shortness of breath associated with cough with sputum production. Patient states she's been noticing reddish's phlegm production for the past 2 weeks. She states she was never well was discharged from the hospital. Patient had a follow-up appointment with Dr. Schaffer tomorrow but hasn't seen a primary care physician for the past 2 weeks. Patient received breathing treatments via EMS before coming to the hospital. There was slight improvement in symptoms on arrival to the ER but patient was found to be dyspneic in the ER. Vitas obtain suggested temp of 98.5, pulse rate 104, blood pressure 133/86, saturating well on 97% on 2 L which is patient' s baseline. Chest x-ray obtained suggested cardiomegaly and COPD but no consolidation with concern for pneumonia. Labs ordered suggestive hemoglobin 10.3 which is stable from the previous admissions. Her INR was 2.5 but patient is not on Coumadin. Also elevated was d-dimer 4.28. Creatinine is above the baseline of 1.2. LFTs were elevated with AST 1448, AST 1090, alkaline phosphatase 170. ProBNP elevated to 18,300. Troponin times 10.030 albumin 3.3. Based on patient's findings and symptoms there is a concern for pulmonary embolism though CTA cannot be ordered due to increased creatinine. V/Q scan ordered. Due to the hepatic congestion an acute elevation in liver enzymes liver ultrasound ordered to rule out cholecystitis/choledocholithiasis. Patient also complaining of significant shoulder pain and limited to the joint mobility likely secondary to arthritis. Pro-calcitonin ordered. Acute hepatitis panel ordered 03/07: Shoulder x-ray was negative. VQ scan shows multiple matching defects corresponds to intermediate probability of pulmonary embolism. Pulmonary is on consult. Patient has been seen by cardiology for acute exacerbation of chronic systolic heart failure with recommendations to continue IV Lasix. We did decrease Lasix to 40 mg IV daily. Echocardiogram report is pending. Patient is complaining of cough that is nonproductive and denies any blood in her cough. Robitussin added. Her shortness of breath is improved. Her pain in her shoulder is okay at this time. She does complain of nausea. Abdominal ultrasound showed probable tiny gallstones. Mild gallbladder wall thickening consistent with acute on chronic cholecystitis. No dilated ducts. Dr. Kaye plans no intervention at this time await GI evaluation. Patient is on a full liquid diet and fluid restriction of 2000 ML's added. 03/08: Last evening patient has not run off-colored 13 beats of V. tach and heart rate of 150-170. A Team was called and patient was in A. fib RVR. Patient was given IV magnesium and cardiology ordered Lopressor. A. fib was better controlled rate and started amiodarone bolus and protocol per Dr. Merino. Early this morning, another A Team was called for blood pressure of 56 /37 and patient was ordered for 500 mL bolus and transferred to ICU and started on vasopressors. Amiodarone drip was stopped. Patient required high-dose norepinephrine, lines were placed by Dr. Lauri Daley in, patient became lethargic and encephalopathy. Case discussed with the patient's and he wanted the patient intubated and patient was intubated and on mechanical ventilation. She was noted to have leukocytosis, anemia and thrombocytopenia, INR is greater than 10, liver function test are significantly elevated as well as CK and renal function. Amylase this morning was 114 and lipase 1053. 03/09: Patient remains intubated and on mechanical ventilation. She has been afebrile. She remains on norepinephrine. She is status post 2 unit packed RBCs as well as fresh frozen plasma. White count is down to 14.6, hemoglobin is 8.2 and platelet count is 94. Dr. Kaye has signed off the case as there is no evidence of abdominal sepsis. Patient is also followed by GI, nephrology, energy conservation technician. Liver function tests are slightly improved from yesterday. INR this morning is 5.3. Patient is status post vitamin K yesterday and repeat today. 03/10: Patient had dilated unresponsive pupils this morning. CT of the brain showed stable exam and consider MRI. Patient remains intubated and on mechanical ventilation. Discussed with patient's family and they do not want her transferred to [facility]. Discussed also the patient's prognosis is poor and she is not heading in the right direction for improvement. She is on lower sedation. She continues on norepinephrine. She has been suctioned of blood from the oral cavity. Metoprolol was resumed yesterday for heart rate but her blood pressure did decrease somewhat. INR today is at 3.4, hemoglobin 7.7 and platelet count 80. She is receiving fresh frozen plasma today. Urine output is at 40 mL per hour. Temperature 90.4 axillary. Objective - Vital Signs Vital signs: Vital Signs Temp 97.7 F 03/10/18 04:30 Pulse 74 03/10/18 09:30 Resp 18 03/10/18 09:30 BP 109/61 03/09/18 14:37 Pulse Ox 95 03/10/18 09:30 Intake & Output 03/09/18 03/10/18 03/10/18 18:59 06:59 18:59 Intake Total 3501.345 0150.518 515.509 Output Total 930 630 130 Balance 930.513 911.518 385.509 Weight 92.2 kg Intake: IV 943 1206 294 0.9 NS pressure bag 33 36 9 Dextrose 5% in Water 1, 100 000 ml @ 100 mls/hr IV . [id number] ONE with Sodium Bicarb (1 Meq/ml) 150 ml Rx#:[id number] Dextrose 5%-0.9% NaCl 1, 750 900 225 000 ml @ 40 mls/hr IV . Q24H [facility] Rx#:[id number] Meropenem 500 mg In 50 Sodium Chloride 0.9% 50 ml @ 100 mls/hr IVPB Q12HR [facility] Rx#:[id number] NS 220 60 Sodium Chloride 0.9% 1, 60 000 ml @ 20 mls/hr IV . Q24H [facility] Rx#:[id number] Intake, IV Titration 399.513 290.518 221.509 Amount Norepinephrine 16 mg In 108.292 221.509 Sodium Chloride 0.9% 250 ml @ Titrate IV .Q0M [facility] Rx#:[id number] Phytonadione 10 mg In 100 Sodium Chloride 0.9% 50 ml @ 100 mls/hr IVPB ONCE ST[facility] Rx#:[id number] Propofol 1,000 mg In 191.221 290.518 Empty Bag 1 bag @ Titrate IV .Q0M [facility] Rx#: [id number] Blood Product 518 Ffp 24 Cp2d Unit 212 [id number] Ffp 24 Cpd Unit 306 [id number] Other 45 Output: Urine 930 630 130 Other: Voiding Method Indwelling Catheter Indwelling Catheter Indwelling Catheter # Voids 35 ABP, PAP, CO, CI - Last Documented Arterial Blood Pressure 138/39 - Exam General appearance: no acute distress, obese - EENT Eyes: anicteric sclerae, PERRLA, normal appearance ENT: hearing grossly normal, intubated on mechanical ventilation, ET and orogastric tube in place - Neck Neck: no lymphadenopathy, normal ROM, no other, no rigidity, no stridor, no thyromegaly - Respiratory Respiratory: bilateral: Decreased bilaterally. No rhonchi or wheezing heard - Cardiovascular Rhythm: regular Heart sounds: normal: S1, S2 Abnormal Heart Sounds: no systolic murmur, no diastolic murmur, no rub, no S3 Gallop, no S4 Gallop - Gastrointestinal General gastrointestinal: normal bowel sounds, soft - Integumentary Integumentary: no rash - Neurologic Neurologic: Dilated unresponsive pupils - Musculoskeletal Musculoskeletal: gait normal, strength equal bilaterally - Psychiatric Psychiatric: Sedated - Labs CBC & Chem 7: 03/10/18 04:15 03/10/18 13:10 Labs: Abnormal Lab Results - Last 24 Hours (Table) 03/09/18 03/09/18 03/09/18 Range/Units 10:40 12:08 12:22 WBC (3.8-10.6) k/uL RBC (3.80-5.40) m/uL Hgb (11.4-16.0) gm/dL Hct (34.0-46.0) % RDW (11.5-15.5) % Plt Count (150-450) k/uL Neutrophils # (Manual) (1.3-7.7) k/uL PT (9.0-12.0) sec INR (<1.2) ABG pH 7.48 H (7.35-7.45) ABG pO2 109 H (83-108) mmHg ABG HCO3 31 H (21-25) mmol/L ABG Total CO2 32 H (19-24) mmol/L ABG O2 Saturation 98.6 H (94-97) % ABG Lactic Acid 2.9 H* (0.5-1.6) mmol/L Sodium (137-145) mmol/L BUN (7-17) mg/dL Creatinine (0.52-1.04) mg/dL Glucose (74-99) mg/dL POC Glucose (mg/dL) 169 H (75-99) mg/dL Calcium (8.4-10.2) mg/dL Phosphorus (2.5-4.5) mg/dL 03/09/18 03/09/18 03/10/18 Range/Units 16:41 19:54 00:33 WBC (3.8-10.6) k/uL RBC (3.80-5.40) m/uL Hgb (11.4-16.0) gm/dL Hct (34.0-46.0) % RDW (11.5-15.5) % Plt Count (150-450) k/uL Neutrophils # (Manual) (1.3-7.7) k/uL PT (9.0-12.0) sec INR (<1.2) ABG pH (7.35-7.45) ABG pO2 (83-108) mmHg ABG HCO3 (21-25) mmol/L ABG Total CO2 (19-24) mmol/L ABG O2 Saturation (94-97) % ABG Lactic Acid (0.5-1.6) mmol/L Sodium (137-145) mmol/L BUN (7-17) mg/dL Creatinine (0.52-1.04) mg/dL Glucose (74-99) mg/dL POC Glucose (mg/dL) 161 H 150 H 149 H (75-99) mg/dL Calcium (8.4-10.2) mg/dL Phosphorus (2.5-4.5) mg/dL 03/10/18 03/10/18 03/10/18 Range/Units 04:08 04:15 04:15 WBC 14.6 H (3.8-10.6) k/uL RBC 2.54 L (3.80-5.40) m/uL Hgb 7.7 L (11.4-16.0) gm/dL Hct 23.2 L (34.0-46.0) % RDW 16.0 H (11.5-15.5) % Plt Count 80 L (150-450) k/uL Neutrophils # (Manual) 12.80 H (1.3-7.7) k/uL PT (9.0-12.0) sec INR (<1.2) ABG pH (7.35-7.45) ABG pO2 (83-108) mmHg ABG HCO3 (21-25) mmol/L ABG Total CO2 (19-24) mmol/L ABG O2 Saturation (94-97) % ABG Lactic Acid (0.5-1.6) mmol/L Sodium 136 L (137-145) mmol/L BUN 60 H (7-17) mg/dL Creatinine 2.16 H (0.52-1.04) mg/dL Glucose 124 H (74-99) mg/dL POC Glucose (mg/dL) 140 H (75-99) mg/dL Calcium 7.6 L (8.4-10.2) mg/dL Phosphorus 5.6 H (2.5-4.5) mg/dL 03/10/18 03/10/18 03/10/18 Range/Units 04:15 05:20 08:51 WBC (3.8-10.6) k/uL RBC (3.80-5.40) m/uL Hgb (11.4-16.0) gm/dL Hct (34.0-46.0) % RDW (11.5-15.5) % Plt Count (150-450) k/uL Neutrophils # (Manual) (1.3-7.7) k/uL PT 30.1 H (9.0-12.0) sec INR 3.4 H (<1.2) ABG pH (7.35-7.45) ABG pO2 79 L (83-108) mmHg ABG HCO3 31 H (21-25) mmol/L ABG Total CO2 32 H (19-24) mmol/L ABG O2 Saturation (94-97) % ABG Lactic Acid (0.5-1.6) mmol/L Sodium (137-145) mmol/L BUN (7-17) mg/dL Creatinine (0.52-1.04) mg/dL Glucose (74-99) mg/dL POC Glucose (mg/dL) 114 H (75-99) mg/dL Calcium (8.4-10.2) mg/dL Phosphorus (2.5-4.5) mg/dL Microbiology - Last 24 Hours (Table) 03/08/18 11:12 Gram Stain - Preliminary Sputum Sputum Culture - Preliminary Meg albicans 03/08/18 10:40 Urine Culture - Final Urine,Catheterized 03/06/18 08:22 Blood Culture - Preliminary Blood No Growth after 72 hours Assessment and Plan Plan: #1 acute on chronic hypoxic respiratory failure secondary to acute on chronic systolic heart failure, pulmonary edema, intermediate for pulmonary embolism not completely ruled out, mild intermittent asthma without exacerbation. No signs of pneumonia. Patient had further decline of her respiratory status and required intubation and mechanical ventilation. Off Lasix, off Solu-Medrol, monitor input and output and daily weight. Continue DuoNeb as needed for shortness of breath. Pulmonary consult #2 acute kidney injury with CKD3, metabolic acidosis and hyperkalemia. Nephrology consult. #3 acute transaminitis with increase in alkaline phosphatase. Ultrasound abdomen reveals acute on chronic cholecystitis. Hepatic congestion likely secondary to CHF. Continue meropenem. #4 acute on chronic systolic heart failure with known ejection fraction noted to be 30-35% in January 2018, status post AICD which was interrogated in January 2018. Repeat echocardiogram. Off IV Lasix. Cardiology consult appreciated. #5 cardiogenic shock with multiorgan failure requiring intubation and mechanical ventilation, vasopressors support. Patient is managed in the intensive care unit by Dr. Lang. Consult with nephrology added for acute kidney injury. Patient is currently on sodium bicarb drip, dobutamine drip and norepinephrine drip. #6. Paroxysmal Atrial fibrillation on xarelto rate controlled currently in sinus rhythm. #7 QT prolongation watch for QT prolongation medication avoid Zofran, levofloxacin and other, and QT prolonging medications . #8 hematemesis versus hemoptysis appears chronic. Continue Protonix #9 recurrent depression continue citalopram 40 mg by mouth daily at bedtime #10 gout stable continue allopurinol #11 generalized anxiety disorder continue Xanax 0.5 daily 1 mg at bedtime #12 DVT prophylaxis patient on xarelto #13 GI prophylaxis with Protonix #14 history of mild intermittent asthma, no documented history of COPD. #15. Thrombocytopenia due to cardiogenic shock. #16 DIC secondary to cardiogenic shock. #17 multiorgan failure with acute kidney injury, acute respiratory failure, shock liver, thrombocytopenia and leukocytosis. #18 metabolic encephalopathy secondary to multiple medical problems. Prognosis guarded CODE STATUS full code Discharge plan: To be determined Impression and plan of care have been directed as dictated by the signing physician. Nancy Olivera nurse practitioner acting as scribe for signing physician.
[2018-03-10] MEDS: METOPROLOL TARTRATE 25 MG TAB PO SCH ×2 (14:46→21:50)
[2018-03-10] MEDS ORDERED: POTASSIUM BICARBONATE/CIT AC 20 MEQ TABLET.EFF PO ONE (14:48)
[2018-03-10] MEDS: NOREPINEPHRINE 16 MG in SODIUM CHLORIDE 0.9% 250 ML IV SCH (14:51)
[2018-03-10] MEDS: DOBUTamine DRIP 500 MG in DEXTROSE/WATER 1 250ML.BAG IV SCH (14:53)
[2018-03-10] MEDS: SEVELAMER 800 MG TAB PO SCH ×2 (14:54→17:49)
--- NOTE | 2018-03-10 15:00 | P.PN ---
Subjective Progress Note Date: 03/10/18 This is 72-year-old white female patient of Dr. Crowell, who presented to the emergency department when 03/06/2018 were evaluation of shortness of breath , cough with yellow sputum production. Patient denied any fever or chills, denied any chest pain. Past medical history is positive for hypertension, ischemic cardiomyopathy status post AICD placement with EF of 30-35%, atrial fibrillation, congestive heart failure, anxiety, depression, carotid stenosis, GERD, and previous episodes of pneumonia. Patient was recently hospitalized in February, for bilateral lower lobe pneumonia, in addition to a CHF exacerbation. She did require admission to the intensive care unit, she was treated with accommodation of Zosyn and vancomycin. She improved, was discharged home. On arrival to the emergency department patient was significantly dyspneic, she was given breathing treatments. Reports difficulty breathing with exertion, and some orthopnea. She was also complaining of right shoulder pain, denies any falls or trauma. She reports dry cough, no peripheral swelling. Significant weight gain. X-ray was completed in the emergency department and showed cardiomegaly and COPD. EKG showed normal sinus rhythm without acute ST/T-wave abnormalities. Lab work was done, and was negative for any evidence of leukocytosis, WBC is 8.9, hemoglobin is 10.3, INR was 2.5, d-dimer was elevated to 4.28, sodium is 135, B1 is 40, creatinine is 1.6. Patient's AST was 1448, and ALT was 1090, and with alkaline phosphatase at 170. ProBNP was 18,300, and troponins were 0.027, 0.024, 0.034. VQ scan was obtained, which showed intermediate probability of pulmonary embolism, chest x-ray on 03/06/2018 showed congestive heart failure. Patient is normally on home oxygen at 2 L per nasal cannula. She is a history of smoking, she quit smoking in 1997, prior to that smoked a pack a day for 20 years. She denies any history of COPD. She was supposed to see Dr. Lang in follow-up in the office this week. Patient was started on IV diuretics, she did receive IV Solu- Medrol, nebulized bronchodilators and empiric antibiotics.. She is diuresing. On today's exam, she is feeling better, breathing easier. No wheezing, no significant coughing, chest congestion or sputum production. Remains afebrile, denies any chest pain, worsening shortness of breath. On 03/08/2018, the patient is being seen in the intensive care unit. Condition decompensated significantly overnight. The patient became progressively more hypotensive and lethargic and and around 4:30 AM a emergency calls was made to the A team and the patient was found to be severely acidotic him a essentially lactic acidosis and the lactic acid level was 12. The patient was oliguric/ anuric and producing minimal amount of urine output. Potassium level was at 6.1. Creatinine was up to 3.4. There had been further increase in the liver function test and an ALT of 6100 and AST of 7500. Lipase was 1053. The patient was seen by general surgery and the patient was seen by gastroenterology and this is considered to be a representation of shock liver rather than acute intra-abdominal issue/acute abdomen. In the bunch trimmer mold hours, the patient was started on Pres. patient is currently on high-dose norepinephrine infusion which was as high as 40 g per KG per minute. I saw the patient in the ICU first thing in the morning. The patient was in shock. She was encephalopathic and extremely lethargic. She was cold and clammy and diminished pulses in the left lower extremity and upper extremity unless debilitated checked by Doppler. The patient was still communicating and responding only to simple commands. Nevertheless, she was quite encephalopathic and lethargic and drowsy. Mother was at the bedside. I did brief discussion with the and gave him an update on her condition. Subsequently, I had to insert a triple lumen catheter an outlying catheter for hemodynamic monitoring and ongoing hemodynamic support. I also intubated the patient states that on mechanical ventilation follow-up blood gases are still pending. Meanwhile the patient received a total of 2 L of IV fluid in the form of normal saline. Urine output still diminished. Following an outlying catheter insertion to systolic blood pressure was measured to be at 1:30. Pressors are currently being gradually weaned off. Her cardiac rhythm is sinus although she is having short runs of atrial fibrillation. She is currently off amiodarone. She has off Eliquis. She is afebrile. She is sedated for the purpose of intubation mechanical ventilation. I put the patient on assist control mode of ventilation following blood gases are still pending. Post intubation chest x-ray show that the patient's right IJ line has been directed however the right subclavian. ET tube and orogastric tube are all On 03/09/2018, I'm seeing this patient in intensive care unit for a follow-up. The patient remains intubated on a mechanical ventilator. This morning, she is still sedated with Diprivan which is running at 40 g per KG per minute. She is an assist-control mode of ventilation. The blood. This morning showed considerable degree of respiratory alkalosis and based on that the necessity vent changes was done. Note that the patient's pH was at 7.69 with a pCO2 of 22 and pO2 of 64 and based on that, the tidal volume was up to 450 and the respiratory rate will drop down to 16. She still on a 50% FiO2 with a PEEP of 5. Today's chest x-ray showing it up in the bilateral pleural effusion small pulmonary vessel congestion. ET tube is high in the trachea. The right IJ is going to the right subclavian. OG tube is in place. Note that the patient is still in cardiogenic shock although hemodynamics is improved compared to yesterday. She was resuscitated with bicarb drip. The bicarb drip was taken of this morning because of the extensive metabolic alkalosis. In any rate, the serum bicarb is up to 19 and the lactic acid is to be followed up today. The patient is currently on 13 mics of levo fed. The patient is producing urine output in the order of 100 250 mL an hour. Renal function is improving and the creatinine is down to 2.6. Liver functions is also improving and the AST and ALP are in the decline. The patient received a total of 2 units of packed RBC and 6 frozen plasma yesterday and the follow-up coagulation profile still is off overall improved. INR is at 5.3 with a PT of 48.1. The platelet counts is at 90,000. The right IJ catheter is not being utilized however it has not been pulled out due to concerns of a hematoma evolution in the right flank area and the right chest area. The hematoma today's evaluation is soft and has not extended any further. NG tube is in place. She will feeds are not being offered at this point in time due to the shock liver. The cardiac rhythm is sinus. No episodes of A. fib was noted. The patient has a triple lumen catheter in the right femoral area and the patient has a arterial line in the right groin and there is no hematoma formation in the right groin area. Pulses in lower extremities is improved compared to yesterday and overall hemodynamics is better with less amount of pressors and better organ function and perfusion on today's evaluation. All of the cultures of been negative and the patient empirically covered with a combination of Merrem and vancomycin. On 03/10/2018 the patient is being seen in follow-up in the intensive care unit. This morning, the patient remains intubated on a mechanical ventilator. Orogastric and orotracheal tube are both in place. No significant worsening in the neck hematoma and the hematoma itself is soft and is palpable. The patient remains sedated on Diprivan and she is calm and comfortable and when the process of getting a sedation holiday today. She is on mechanical ventilator on assist control mode with essentially the same vent settings include a tidal volume of 450 with a rate of 16 and FiO2 of 40% and a PEEP of 5. Her morning blood gases showed a pH of 7.44 with a pCO2 of 45 and pO2 of 79 and this was on FiO2 of 40%. The chest x-ray is showing bibasilar pulmonary infiltrates and worsening in the pulmonary vessel congestion/edema compared to yesterday. There is small bilateral pleural effusion. The lines are all unchanged. I'm still awaiting for her coagulopathy to correct prior to removing the triple- lumen catheter to in her right neck. On today's blood work, the patient's INR is at 3.4. Based on this, the patient was given additional 2 units of fresh frozen plasma. Hemoglobin stable at 7.7. The shock liver is improving and the liver function tests on the decline. Abdomen is also improved and it's down to 2.1. Hemodynamically, the patient is producing urine output in the order of 40- 50 mL an hour, yet her net fluid balance has been positive for yesterday at 1.8 L. The patient is still on norepinephrine infusion at 13 g and the patient be started on diuretics to optimize her volume status and urine output. She is afebrile. She is having negative blood cultures. She is on empiric antibiotic coverage with IV Merrem. She has remained nothing by mouth and her tube feeds will be initiated today. The patient is currently on a normal saline at 75 mL an hour. We'll going to cut on IV fluids to maintenance. Family is at the bedside. Objective - Vital Signs Vital signs: Vital Signs Temp 97.4 F L 03/10/18 14:01 Pulse 83 03/10/18 14:01 Resp 19 03/10/18 14:01 BP 124/69 03/10/18 14:01 Pulse Ox 96 03/10/18 14:01 Intake & Output 03/09/18 03/10/18 03/10/18 18:59 06:59 18:59 Intake Total 7482.257 9878.518 1123.329 Output Total 930 630 530 Balance 930.513 911.518 593.329 Weight 92.2 kg 92.2 kg Intake: IV 943 1206 439 0.9 NS pressure bag 33 36 24 Dextrose 5% in Water 1, 100 000 ml @ 100 mls/hr IV . [id number] ONE with Sodium Bicarb (1 Meq/ml) 150 ml Rx#:[id number] Dextrose 5%-0.9% NaCl 1, 750 900 225 000 ml @ 40 mls/hr IV . Q24H [facility] Rx#:[id number] Meropenem 500 mg In 50 50 Sodium Chloride 0.9% 50 ml @ 100 mls/hr IVPB Q12HR [facility] Rx#:[id number] NS 220 140 Sodium Chloride 0.9% 1, 60 000 ml @ 20 mls/hr IV . Q24H [facility] Rx#:[id number] Intake, IV Titration 399.513 290.518 291.329 Amount Norepinephrine 16 mg In 108.292 221.509 Sodium Chloride 0.9% 250 ml @ Titrate IV .Q0M [facility] Rx#:[id number] Phytonadione 10 mg In 100 Sodium Chloride 0.9% 50 ml @ 100 mls/hr IVPB [facility] Rx#:[id number] Propofol 1,000 mg In 191.221 290.518 69.820 Empty Bag 1 bag @ Titrate IV .Q0M [facility] Rx#: [id number] Blood Product 518 393 Ffp 24 Cp2d Unit 212 [id number] Ffp 24 Cp2d Unit 196 [id number] Ffp 24 Cp2d Unit 197 [id number] Ffp 24 Cpd Unit 306 [id number] Other 45 Output: Urine 930 630 530 Other: Voiding Method Indwelling Catheter Indwelling Catheter Indwelling Catheter # Voids 35 ABP, PAP, CO, CI - Last Documented Arterial Blood Pressure 123/70 - Exam Patient is sedated on Diprivan, Comfortable. Intubated on a mechanical ventilator. Orogastric and orotracheal tube are both in place. Head is atraumatic normocephalic. Neck examination shows positive JVDs on a 30 bed elevation. No goiter or neck masses. Mucous membranes are dry. The patient has some conjunctival icterus and pallor. The patient has a right IJ triple-lumen catheter. The cath is not being utilized. There is a soft hematoma in the right neck area extending to the anterior neck and upper chest which has not progressed and remains unchanged. Lungs sounds are diminished bilaterally along with bibasilar crackles. Heart sounds are tachycardic and there are distant. Positive S1-S2 and there is a faint murmur heard at a 2/6 throughout the precordium. Abdominal exam revealed normal bowel sounds. The abdomen was soft, non-tender, and without masses, organomegaly, or appreciable enlargement of the abdominal aorta. Examination of the extremities marked diminished pulses in lower extremities bilaterally also diminished pulses in the upper extremities. Extremities are warm today and there is improved pulses in the lower extremities and upper extremities bilaterally. There is some cyanosis. No clubbing. Examination of the skin revealed no evidence of significant rashes, suspicious appearing nevi or other concerning lesions. Neurologic the patient was encephalopathic and currently she is sedated with Diprivan and calm and comfortable. Psychiatric evaluation cannot be done. - Labs CBC & Chem 7: 03/10/18 04:15 03/10/18 13:10 Labs: Abnormal Lab Results - Last 24 Hours (Table) 03/08/18 03/09/18 03/09/18 Range/Units 12:00 16:41 19:54 WBC (3.8-10.6) k/uL RBC (3.80-5.40) m/uL Hgb (11.4-16.0) gm/dL Hct (34.0-46.0) % RDW (11.5-15.5) % Plt Count (150-450) k/uL Neutrophils # (Manual) (1.3-7.7) k/uL PT (9.0-12.0) sec INR (<1.2) ABG pO2 (83-108) mmHg ABG HCO3 (21-25) mmol/L ABG Total CO2 (19-24) mmol/L Sodium (137-145) mmol/L Potassium (3.5-5.1) mmol/L BUN (7-17) mg/dL Creatinine (0.52-1.04) mg/dL Glucose (74-99) mg/dL POC Glucose (mg/dL) 161 H 150 H (75-99) mg/dL Calcium (8.4-10.2) mg/dL Phosphorus (2.5-4.5) mg/dL Total Bilirubin (0.2-1.3) mg/dL AST (14-36) U/L ALT (9-52) U/L Alkaline Phosphatase (38-126) U/L Total Protein (6.3-8.2) g/dL Albumin (3.5-5.0) g/dL Crossmatch See Detail 03/10/18 03/10/18 03/10/18 Range/Units 00:33 04:08 04:15 WBC 14.6 H (3.8-10.6) k/uL RBC 2.54 L (3.80-5.40) m/uL Hgb 7.7 L (11.4-16.0) gm/dL Hct 23.2 L (34.0-46.0) % RDW 16.0 H (11.5-15.5) % Plt Count 80 L (150-450) k/uL Neutrophils # (Manual) 12.80 H (1.3-7.7) k/uL PT (9.0-12.0) sec INR (<1.2) ABG pO2 (83-108) mmHg ABG HCO3 (21-25) mmol/L ABG Total CO2 (19-24) mmol/L Sodium (137-145) mmol/L Potassium (3.5-5.1) mmol/L BUN (7-17) mg/dL Creatinine (0.52-1.04) mg/dL Glucose (74-99) mg/dL POC Glucose (mg/dL) 149 H 140 H (75-99) mg/dL Calcium (8.4-10.2) mg/dL Phosphorus (2.5-4.5) mg/dL Total Bilirubin (0.2-1.3) mg/dL AST (14-36) U/L ALT (9-52) U/L Alkaline Phosphatase (38-126) U/L Total Protein (6.3-8.2) g/dL Albumin (3.5-5.0) g/dL Crossmatch 03/10/18 03/10/18 03/10/18 Range/Units 04:15 04:15 05:20 WBC (3.8-10.6) k/uL RBC (3.80-5.40) m/uL Hgb (11.4-16.0) gm/dL Hct (34.0-46.0) % RDW (11.5-15.5) % Plt Count (150-450) k/uL Neutrophils # (Manual) (1.3-7.7) k/uL PT 30.1 H (9.0-12.0) sec INR 3.4 H (<1.2) ABG pO2 79 L (83-108) mmHg ABG HCO3 31 H (21-25) mmol/L ABG Total CO2 32 H (19-24) mmol/L Sodium 136 L (137-145) mmol/L Potassium (3.5-5.1) mmol/L BUN 60 H (7-17) mg/dL Creatinine 2.16 H (0.52-1.04) mg/dL Glucose 124 H (74-99) mg/dL POC Glucose (mg/dL) (75-99) mg/dL Calcium 7.6 L (8.4-10.2) mg/dL Phosphorus 5.6 H (2.5-4.5) mg/dL Total Bilirubin 4.6 H (0.2-1.3) mg/dL AST 3337 H (14-36) U/L ALT 3515 H (9-52) U/L Alkaline Phosphatase 151 H (38-126) U/L Total Protein 4.9 L (6.3-8.2) g/dL Albumin 2.6 L (3.5-5.0) g/dL Crossmatch 03/10/18 03/10/18 03/10/18 Range/Units 08:51 08:55 13:06 WBC (3.8-10.6) k/uL RBC (3.80-5.40) m/uL Hgb (11.4-16.0) gm/dL Hct (34.0-46.0) % RDW (11.5-15.5) % Plt Count (150-450) k/uL Neutrophils # (Manual) (1.3-7.7) k/uL PT (9.0-12.0) sec INR (<1.2) ABG pO2 (83-108) mmHg ABG HCO3 (21-25) mmol/L ABG Total CO2 (19-24) mmol/L Sodium (137-145) mmol/L Potassium 2.8 L (3.5-5.1) mmol/L BUN (7-17) mg/dL Creatinine (0.52-1.04) mg/dL Glucose (74-99) mg/dL POC Glucose (mg/dL) 114 H 104 H (75-99) mg/dL Calcium (8.4-10.2) mg/dL Phosphorus (2.5-4.5) mg/dL Total Bilirubin (0.2-1.3) mg/dL AST (14-36) U/L ALT (9-52) U/L Alkaline Phosphatase (38-126) U/L Total Protein (6.3-8.2) g/dL Albumin (3.5-5.0) g/dL Crossmatch 03/10/18 Range/Units 13:10 WBC (3.8-10.6) k/uL RBC (3.80-5.40) m/uL Hgb (11.4-16.0) gm/dL Hct (34.0-46.0) % RDW (11.5-15.5) % Plt Count (150-450) k/uL Neutrophils # (Manual) (1.3-7.7) k/uL PT (9.0-12.0) sec INR (<1.2) ABG pO2 (83-108) mmHg ABG HCO3 (21-25) mmol/L ABG Total CO2 (19-24) mmol/L Sodium (137-145) mmol/L Potassium 3.0 L (3.5-5.1) mmol/L BUN (7-17) mg/dL Creatinine (0.52-1.04) mg/dL Glucose (74-99) mg/dL POC Glucose (mg/dL) (75-99) mg/dL Calcium (8.4-10.2) mg/dL Phosphorus (2.5-4.5) mg/dL Total Bilirubin (0.2-1.3) mg/dL AST (14-36) U/L ALT (9-52) U/L Alkaline Phosphatase (38-126) U/L Total Protein (6.3-8.2) g/dL Albumin (3.5-5.0) g/dL Crossmatch Microbiology - Last 24 Hours (Table) 03/08/18 11:12 Gram Stain - Final Sputum Sputum Culture - Final Meg albicans 03/06/18 08:22 Blood Culture - Preliminary Blood No Growth after 96 hours 03/08/18 10:40 Urine Culture - Final Urine,Catheterized Assessment and Plan Plan: Assessment 1 cardiogenic shock with multisystem organ failure. After being insignificant hemodynamic collapse, the patient has shown some signs of improvement as the renal function is shock liver is improving and the patient is producing better urine output and the patient is on a lower dose of pressors and currently she is on norepinephrine infusion at 13 g per KG per minute. The patient remains intubated on a mechanical ventilator and the chest x-ray still showing pulmonary vascular congestion/edema with possibly small better pleural effusions. 2 CHF with systolic heart failure and ejection fraction of 20-25% based on yesterday's echocardiogram. The patient also has global severe hypokinesis, left ventricle is moderately dilated, severe mitral regurgitation, severe three- vessel regurgitation, severe pulmonary hypertension, no significant inspiratory collapse of the IVC consistent with right-sided volume overload 3 acute hypoxic respiratory failure secondary to above, chest x-ray from today showing better pleural effusion and pulmonary vessel congestion. The blood gases from this morning was noted. 4 acute kidney injury secondary to above, improving compared to yesterday and creatinine is down to 2.1 5 acute shock liver secondary to above, LFTs are improving and the patient is still profoundly coagulopathic posttransfusion with fresh frozen plasma. INR today is at 3.4 and liver function tests continue to improve. Based on all this , we'll give 2 additional units of fresh frozen plasma and repeat INR and remove the catheter from the right IJ if the INR is less than 2. 6 proximal atrial fibrillation current rhythm is sinus 7 carotid artery disease with a previous left carotid endarterectomy 8 history of melanoma resected 9 acute hyperkalemia secondary to the metabolic acidosis and acute kidney injury , improved 10 severe lactic acidosis, improving 11 acute thrombocytopenia secondary to above, rule out underlying component of DIC 12 acute leukocytosis secondary to above. 13 acute elevation of the lipase questionable component of pancreatitis, improving 14 history of AICD placement 15 history of ESBL producing urine checked infection back in general 2017 with E. coli 16 chronic hypoxic respiratory failure and the patient is oxygen at 2 L per minute nasal cannula 17 severe coagulopathy with hematoma formation at the site of a right IJ triple- lumen catheter insertion site. The hematoma is soft and has not progressed over the past 48 hours. Plan Condition remains extremely critical. We'll give the patient is a sedation holiday to assess his underlying mental status. It's possible that the patient may remain encephalopathic due to her shock liver. She has also taken significant amount of sedation over the past 48 hours is reasonable to given a sedation holiday to assess underlying mentation. Meanwhile, start the patient IV Lasix. Kept on IV fluids to KVO. Continue vent support. Monitor renal function. Monitor hepatic functions. Keep pressors for now and try to wean off the norepinephrine infusion if possible to maintain a mean artery pressure above 65. Monitor hemoglobin. Give additional 2 units of fresh frozen plasma and remove the right IJ catheter from the neck area if the INR drops less than 2. The family has not made any request to transfer this patient to [facility]. I discussed with the linux engineer at [facility] and I talked to the physician covering Dr. Almao and updated her on the patient's condition. She concurred on the management and the treatment plan. Nevertheless, she carries a high mortality risk despite some limited improvement that she has shown of the past few days. We'll continue to follow. Would initiate tube feeds. We'll continue the rest of the supportive care. Condition remains critical. This critically care evaluation was done in 40 minutes. Time with Patient: Greater than 30
[2018-03-10 17:50] LABS: Glucose,Whole Blood 79 mg/dL (75-99)
[2018-03-10] MEDS ORDERED: DEXTROSE 50%-WATER 50 ML SYRINGE IVP STA (18:46)
[2018-03-10 20:11] LABS: Glucose,Whole Blood 111 mg/dL (75-99)
[2018-03-10] MEDS: CITALOPRAM HYDROBROMIDE 20 MG TAB PO SCH (21:46)
[2018-03-11 00:30] LABS: Glucose,Whole Blood 102 mg/dL (75-99)
[2018-03-11] MEDS: IPRATROPIUM-ALBUTEROL 3 ML NEB INHALATION SCH ×7 (00:42→23:54)
[2018-03-11] MEDS: INSULIN ASPART 100 UNIT/ML 1 ML 10 ML VIAL SQ SCH ×5 (04:00→21:29)
[2018-03-11 04:12] LABS: Glucose,Whole Blood 116 mg/dL (75-99)
[2018-03-11 04:26] LABS: Anisocytosis Slight; Basophils % (A) 0 %; Eosinophils # (A) 0.1 k/uL (0-0.7); Eosinophils % (A) 1 %; HCT 24.4 % (34.0-46.0); HGB 7.5 gm/dL (11.4-16.0); Hypochromasia Moderate; Lymphocytes # (A) 0.8 k/uL (1.0-4.8); Lymphocytes % (A) 8 %; MCH 28.2 pg (25.0-35.0); MCHC 30.7 g/dL (31.0-37.0); Mean Platelet Volume 10.3; Monocytes # (A) 0.4 k/uL (0-1.0); Monocytes % (A) 4 %; Neutrophils # (A) 8.7 k/uL (1.3-7.7); Neutrophils % (A) 86 %; Poikilocytosis Slight; RBC 2.65 m/uL (3.80-5.40); RDW 16.1 % (11.5-15.5); WBC 10.1 k/uL (3.8-10.6)
[2018-03-11 04:34] LABS: Calcium 8.5 mg/dL (8.4-10.2); Magnesium 2.1 mg/dL (1.6-2.3); Phosphorus 5.1 mg/dL (2.5-4.5); Potassium 5.4 mmol/L (3.5-5.1)
[2018-03-11 04:37] LABS: INR 3.2 (<1.2)
[2018-03-11 04:38] LABS: Prothrombin Time 28.6 sec (9.0-12.0)
[2018-03-11 04:46] LABS: Platelet Count 81 k/uL (150-450)
[2018-03-11 05:26] LABS: ABG Base Excess 4.6 mmol/L; ABG HCO3 29 mmol/L (21-25); ABG PCO2 42 mmHg (35-45); ABG PH 7.45 (7.35-7.45); ABG PO2 108 mmHg (83-108); ABG TCO2 30 mmol/L (19-24)
[2018-03-11] MEDS: DILTIAZEM 50 MG in SODIUM CHLORIDE 0.9% 40 ML IV SCH ×2 (06:24→19:45)
--- NOTE | 2018-03-11 07:35 | XR ---
EXAMINATION TYPE: XR chest 1V DATE OF EXAM: 03/11/2018 COMPARISON: 03/10/2018 HISTORY: Shortness of breath TECHNIQUE: Single frontal view of the chest is obtained. FINDINGS: Heart is enlarged and there is bilateral areas of consolidation and pleural effusion. Diff use airspace disease noted. Mass or more focal area of consolidation right upper lobe. ET and NG tube s stable. Cardiac device stable. Central line on the right appears to extend toward the right upper e xtremity. IMPRESSION: 1. Pleural-parenchymal changes are stable correlate for pulmonary edema, ARDS or diffuse pneumonia.
--- NOTE | 2018-03-11 08:29 | P.PN ---
Subjective Progress Note Date: 03/11/18 This is 72-year-old white female patient of Dr. Crowell, who presented to the emergency department when 03/06/2018 were evaluation of shortness of breath , cough with yellow sputum production. Patient denied any fever or chills, denied any chest pain. Past medical history is positive for hypertension, ischemic cardiomyopathy status post AICD placement with EF of 30-35%, atrial fibrillation, congestive heart failure, anxiety, depression, carotid stenosis, GERD, and previous episodes of pneumonia. Patient was recently hospitalized in February, for bilateral lower lobe pneumonia, in addition to a CHF exacerbation. She did require admission to the intensive care unit, she was treated with accommodation of Zosyn and vancomycin. She improved, was discharged home. On arrival to the emergency department patient was significantly dyspneic, she was given breathing treatments. Reports difficulty breathing with exertion, and some orthopnea. She was also complaining of right shoulder pain, denies any falls or trauma. She reports dry cough, no peripheral swelling. Significant weight gain. X-ray was completed in the emergency department and showed cardiomegaly and COPD. EKG showed normal sinus rhythm without acute ST/T-wave abnormalities. Lab work was done, and was negative for any evidence of leukocytosis, WBC is 8.9, hemoglobin is 10.3, INR was 2.5, d-dimer was elevated to 4.28, sodium is 135, B1 is 40, creatinine is 1.6. Patient's AST was 1448, and ALT was 1090, and with alkaline phosphatase at 170. ProBNP was 18,300, and troponins were 0.027, 0.024, 0.034. VQ scan was obtained, which showed intermediate probability of pulmonary embolism, chest x-ray on 03/06/2018 showed congestive heart failure. Patient is normally on home oxygen at 2 L per nasal cannula. She is a history of smoking, she quit smoking in 1997, prior to that smoked a pack a day for 20 years. She denies any history of COPD. She was supposed to see Dr. Lang in follow-up in the office this week. Patient was started on IV diuretics, she did receive IV Solu- Medrol, nebulized bronchodilators and empiric antibiotics.. She is diuresing. On today's exam, she is feeling better, breathing easier. No wheezing, no significant coughing, chest congestion or sputum production. Remains afebrile, denies any chest pain, worsening shortness of breath. On 03/08/2018, the patient is being seen in the intensive care unit. Condition decompensated significantly overnight. The patient became progressively more hypotensive and lethargic and and around 4:30 AM a emergency calls was made to the A team and the patient was found to be severely acidotic him a essentially lactic acidosis and the lactic acid level was 12. The patient was oliguric/ anuric and producing minimal amount of urine output. Potassium level was at 6.1. Creatinine was up to 3.4. There had been further increase in the liver function test and an ALT of 6100 and AST of 7500. Lipase was 1053. The patient was seen by general surgery and the patient was seen by gastroenterology and this is considered to be a representation of shock liver rather than acute intra-abdominal issue/acute abdomen. 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 patient is currently on high-dose norepinephrine infusion which was as high as 40 g per KG per minute. I saw the patient in the ICU first thing in the morning. The patient was in shock. She was encephalopathic and extremely lethargic. She was cold and clammy and diminished pulses in the left lower extremity and upper extremity unless debilitated checked by Doppler. The patient was still communicating and responding only to simple commands. Nevertheless, she was quite encephalopathic and lethargic and drowsy. Mother was at the bedside. I did brief discussion with the and gave him an update on her condition. Subsequently, I had to insert a triple lumen catheter an outlying catheter for hemodynamic monitoring and ongoing hemodynamic support. I also intubated the patient states that on mechanical ventilation follow-up blood gases are still pending. Meanwhile the patient received a total of 2 L of IV fluid in the form of normal saline. Urine output still diminished. Following an outlying catheter insertion to systolic blood pressure was measured to be at 1:30. Pressors are currently being gradually weaned off. Her cardiac rhythm is sinus although she is having short runs of atrial fibrillation. She is currently off amiodarone. She has off Eliquis. She is afebrile. She is sedated for the purpose of intubation mechanical ventilation. I put the patient on assist control mode of ventilation following blood gases are still pending. Post intubation chest x-ray show that the patient's right IJ line has been directed however the right subclavian. ET tube and orogastric tube are all On 03/09/2018, I'm seeing this patient in intensive care unit for a follow-up. The patient remains intubated on a mechanical ventilator. This morning, she is still sedated with Diprivan which is running at 40 g per KG per minute. She is an assist-control mode of ventilation. The blood. This morning showed considerable degree of respiratory alkalosis and based on that the necessity vent changes was done. Note that the patient's pH was at 7.69 with a pCO2 of 22 and pO2 of 64 and based on that, the tidal volume was up to 450 and the respiratory rate will drop down to 16. She still on a 50% FiO2 with a PEEP of 5. Today's chest x-ray showing it up in the bilateral pleural effusion small pulmonary vessel congestion. ET tube is high in the trachea. The right IJ is going to the right subclavian. OG tube is in place. Note that the patient is still in cardiogenic shock although hemodynamics is improved compared to yesterday. She was resuscitated with bicarb drip. The bicarb drip was taken of this morning because of the extensive metabolic alkalosis. In any rate, the serum bicarb is up to 19 and the lactic acid is to be followed up today. The patient is currently on 13 mics of levo fed. The patient is producing urine output in the order of 100 250 mL an hour. Renal function is improving and the creatinine is down to 2.6. Liver functions is also improving and the AST and ALP are in the decline. The patient received a total of 2 units of packed RBC and 6 frozen plasma yesterday and the follow-up coagulation profile still is off overall improved. INR is at 5.3 with a PT of 48.1. The platelet counts is at 90,000. The right IJ catheter is not being utilized however it has not been pulled out due to concerns of a hematoma evolution in the right flank area and the right chest area. The hematoma today's evaluation is soft and has not extended any further. NG tube is in place. She will feeds are not being offered at this point in time due to the shock liver. The cardiac rhythm is sinus. No episodes of A. fib was noted. The patient has a triple lumen catheter in the right femoral area and the patient has a arterial line in the right groin and there is no hematoma formation in the right groin area. Pulses in lower extremities is improved compared to yesterday and overall hemodynamics is better with less amount of pressors and better organ function and perfusion on today's evaluation. All of the cultures of been negative and the patient empirically covered with a combination of Merrem and vancomycin. On 03/10/2018 the patient is being seen in follow-up in the intensive care unit. This morning, the patient remains intubated on a mechanical ventilator. Orogastric and orotracheal tube are both in place. No significant worsening in the neck hematoma and the hematoma itself is soft and is palpable. The patient remains sedated on Diprivan and she is calm and comfortable and when the process of getting a sedation holiday today. She is on mechanical ventilator on assist control mode with essentially the same vent settings include a tidal volume of 450 with a rate of 16 and FiO2 of 40% and a PEEP of 5. Her morning blood gases showed a pH of 7.44 with a pCO2 of 45 and pO2 of 79 and this was on FiO2 of 40%. The chest x-ray is showing bibasilar pulmonary infiltrates and worsening in the pulmonary vessel congestion/edema compared to yesterday. There is small bilateral pleural effusion. The lines are all unchanged. I'm still awaiting for her coagulopathy to correct prior to removing the triple- lumen catheter to in her right neck. On today's blood work, the patient's INR is at 3.4. Based on this, the patient was given additional 2 units of fresh frozen plasma. Hemoglobin stable at 7.7. The shock liver is improving and the liver function tests on the decline. Abdomen is also improved and it's down to 2.1. Hemodynamically, the patient is producing urine output in the order of 40- 50 mL an hour, yet her net fluid balance has been positive for yesterday at 1.8 L. The patient is still on norepinephrine infusion at 13 g and the patient be started on diuretics to optimize her volume status and urine output. She is afebrile. She is having negative blood cultures. She is on empiric antibiotic coverage with IV Merrem. She has remained nothing by mouth and her tube feeds will be initiated today. The patient is currently on a normal saline at 75 mL an hour. We'll going to cut on IV fluids to maintenance. Family is at the bedside. On 03/11/2089 seeing this patient in follow-up in the intensive care unit. The patient was taken off sedation yesterday and she did not have any immediate neurologic recovery. This was a concern. The pupils are quite wide and sluggishly reactive to light and the order of 7-8 mm in size. There was bilateral and symmetrical. Based on this, a CAT scan of the brain was done and it did not show any acute abnormalities or bleeds. The patient was kept off sedation throughout the day yesterday and this morning she is off sedation. She opens her eyes upon being called her name. She is not following commands still. She is laying down comfortably she is very synchronous with the mechanical ventilator. She is still intubated on a respirator, and she is an assist-control mode of ventilation with a rate of 16, tidal volume of 400, FiO2 is down to 40% and a PEEP of 5. The blood gases from today showed a pH of 7.45 with a pCO2 of 42 and pO2 of 108. Chest x-rays consistent with CHF with pulmonary vessel congestion and bilateral pleural effusions. The patient hemodynamically is still requiring pressors. The patient is currently on norepinephrine infusion running at 5 g which is considerably improved compared to a few days back. Nevertheless, earlier this morning, the patient went into atrial fibrillation rapid ventricular response. Based on this, the patient was started on Cardizem drip and currently Cardizem is running at 5 mg an hour rate is under better control. The patient is producing urine output in the order of 40-50 mL an hour. The net fluid balance is still positive of 1.8 L despite her receiving Lasix 40 mg IV every 12 hours. The right IJ triple-lumen catheter in place and the hematoma is stable and unchanged. The right femoral triple-lumen catheter and Artline catheter both in place without evidence of any hematoma and in hemoglobin is stable above 7. The patient is afebrile. The patient on IV Merrem. The patient was demonstrating improvement in her liver function tests and a son yesterday blood tests. The family is currently making decision about possibility of her going into comfort care measures based on her ongoing medical problems and comorbidities. The told us that the patient did not want to be intubated in the first place and long-term mechanical ventilation is something that they would not accept as part of her medical care. Further discussion will be done in I'm meeting with the family at around 10:00 this morning to establish goals of treatment. Objective - Vital Signs Vital signs: Vital Signs Temp 99.8 F H 03/11/18 06:00 Pulse 108 H 03/11/18 07:48 Resp 25 H 03/11/18 06:00 BP 124/69 03/10/18 14:01 Pulse Ox 99 03/11/18 06:00 Intake & Output 03/10/18 03/11/18 03/11/18 18:59 06:59 18:59 Intake Total 1266.820 930.527 Output Total 835 760 Balance 431.820 170.527 Weight 92.2 kg 93 kg Intake: IV 554 743 0.9 NS pressure bag 39 33 Dextrose 5%-0.9% NaCl 1, 225 440 000 ml @ 40 mls/hr IV . Q24H [facility] Rx#:[id number] Meropenem 500 mg In 50 50 Sodium Chloride 0.9% 50 ml @ 100 mls/hr IVPB Q12HR [facility] Rx#:[id number] NS 240 220 Intake, IV Titration 319.820 127.527 Amount Norepinephrine 16 mg In 250.000 127.527 Sodium Chloride 0.9% 250 ml @ Titrate IV .Q0M [facility] Rx#:[id number] Propofol 1,000 mg In 69.820 Empty Bag 1 bag @ Titrate IV .Q0M [facility] Rx#: [id number] Tube Feeding 60 Blood Product 393 Ffp 24 Cp2d Unit 196 [id number] Ffp 24 Cp2d Unit 197 [id number] Output: Urine 835 760 Other: Voiding Method Indwelling Catheter Indwelling Catheter ABP, PAP, CO, CI - Last Documented Arterial Blood Pressure 127/67 - Exam Patient is currently off sedation the patient opens her eyes upon running her name otherwise she is sleeping and remains sedated without movement in upper and lower extremities. She is still not withdrawing to painful stimulation. She is Comfortable. Intubated on a mechanical ventilator. Orogastric and orotracheal tube are both in place. Head is atraumatic normocephalic. Neck examination shows positive JVDs on a 30 bed elevation. No goiter or neck masses. Mucous membranes are dry. The patient has some conjunctival icterus and pallor. The patient has a right IJ triple-lumen catheter. The cath is not being utilized. There is a soft hematoma in the right neck area extending to the anterior neck and upper chest which has not progressed and remains unchanged. Lungs sounds are diminished bilaterally along with bibasilar crackles. Heart sounds are tachycardic and there are distant. Positive S1-S2 and there is a faint murmur heard at a 2/6 throughout the precordium. Abdominal exam revealed normal bowel sounds. The abdomen was soft, non-tender, and without masses, organomegaly, or appreciable enlargement of the abdominal aorta. Examination of the extremities marked diminished pulses in lower extremities bilaterally also diminished pulses in the upper extremities. Extremities are warm today and there is improved pulses in the lower extremities and upper extremities bilaterally. There is some cyanosis. No clubbing. There is still significant amount of edema in the upper and lower extremities bilaterally. There is also hematoma in the right neck and anterior chest area which is soft and has not progressed at all. Examination of the skin revealed no evidence of significant rashes, suspicious appearing nevi or other concerning lesions. Neurologic the patient was encephalopathic and currently she is sedated with Diprivan and calm and comfortable. Psychiatric evaluation cannot be done. - Labs CBC & Chem 7: 03/11/18 04:10 03/11/18 04:10 Labs: Abnormal Lab Results - Last 24 Hours (Table) 03/08/18 03/10/18 03/10/18 Range/Units 12:00 04:15 08:51 RBC (3.80-5.40) m/uL Hgb (11.4-16.0) gm/dL Hct (34.0-46.0) % MCHC (31.0-37.0) g/dL RDW (11.5-15.5) % Plt Count (150-450) k/uL Neutrophils # (1.3-7.7) k/uL Lymphocytes # (1.0-4.8) k/uL PT (9.0-12.0) sec INR (<1.2) ABG HCO3 (21-25) mmol/L ABG Total CO2 (19-24) mmol/L ABG O2 Saturation (94-97) % Sodium 136 L (137-145) mmol/L Potassium (3.5-5.1) mmol/L BUN 60 H (7-17) mg/dL Creatinine 2.16 H (0.52-1.04) mg/dL Glucose 124 H (74-99) mg/dL POC Glucose (mg/dL) 114 H (75-99) mg/dL Calcium 7.6 L (8.4-10.2) mg/dL Phosphorus 5.6 H (2.5-4.5) mg/dL Total Bilirubin 4.6 H (0.2-1.3) mg/dL AST 3337 H (14-36) U/L ALT 3515 H (9-52) U/L Alkaline Phosphatase 151 H (38-126) U/L Total Protein 4.9 L (6.3-8.2) g/dL Albumin 2.6 L (3.5-5.0) g/dL Crossmatch See Detail 03/10/18 03/10/18 03/10/18 Range/Units 08:55 13:06 13:10 RBC (3.80-5.40) m/uL Hgb (11.4-16.0) gm/dL Hct (34.0-46.0) % MCHC (31.0-37.0) g/dL RDW (11.5-15.5) % Plt Count (150-450) k/uL Neutrophils # (1.3-7.7) k/uL Lymphocytes # (1.0-4.8) k/uL PT (9.0-12.0) sec INR (<1.2) ABG HCO3 (21-25) mmol/L ABG Total CO2 (19-24) mmol/L ABG O2 Saturation (94-97) % Sodium (137-145) mmol/L Potassium 2.8 L 3.0 L (3.5-5.1) mmol/L BUN (7-17) mg/dL Creatinine (0.52-1.04) mg/dL Glucose (74-99) mg/dL POC Glucose (mg/dL) 104 H (75-99) mg/dL Calcium (8.4-10.2) mg/dL Phosphorus (2.5-4.5) mg/dL Total Bilirubin (0.2-1.3) mg/dL AST (14-36) U/L ALT (9-52) U/L Alkaline Phosphatase (38-126) U/L Total Protein (6.3-8.2) g/dL Albumin (3.5-5.0) g/dL Crossmatch 03/10/18 03/10/18 03/11/18 Range/Units 20:00 20:04 00:28 RBC (3.80-5.40) m/uL Hgb (11.4-16.0) gm/dL Hct (34.0-46.0) % MCHC (31.0-37.0) g/dL RDW (11.5-15.5) % Plt Count (150-450) k/uL Neutrophils # (1.3-7.7) k/uL Lymphocytes # (1.0-4.8) k/uL PT (9.0-12.0) sec INR (<1.2) ABG HCO3 (21-25) mmol/L ABG Total CO2 (19-24) mmol/L ABG O2 Saturation (94-97) % Sodium (137-145) mmol/L Potassium 5.3 H (3.5-5.1) mmol/L BUN (7-17) mg/dL Creatinine (0.52-1.04) mg/dL Glucose (74-99) mg/dL POC Glucose (mg/dL) 111 H 102 H (75-99) mg/dL Calcium (8.4-10.2) mg/dL Phosphorus (2.5-4.5) mg/dL Total Bilirubin (0.2-1.3) mg/dL AST (14-36) U/L ALT (9-52) U/L Alkaline Phosphatase (38-126) U/L Total Protein (6.3-8.2) g/dL Albumin (3.5-5.0) g/dL Crossmatch 03/11/18 03/11/18 03/11/18 Range/Units 04:10 04:10 04:10 RBC 2.65 L (3.80-5.40) m/uL Hgb 7.5 L (11.4-16.0) gm/dL Hct 24.4 L (34.0-46.0) % MCHC 30.7 L (31.0-37.0) g/dL RDW 16.1 H (11.5-15.5) % Plt Count 81 L (150-450) k/uL Neutrophils # 8.7 H (1.3-7.7) k/uL Lymphocytes # 0.8 L (1.0-4.8) k/uL PT 28.6 H (9.0-12.0) sec INR 3.2 H (<1.2) ABG HCO3 (21-25) mmol/L ABG Total CO2 (19-24) mmol/L ABG O2 Saturation (94-97) % Sodium (137-145) mmol/L Potassium 5.4 H (3.5-5.1) mmol/L BUN 65 H (7-17) mg/dL Creatinine 1.87 H (0.52-1.04) mg/dL Glucose 104 H (74-99) mg/dL POC Glucose (mg/dL) (75-99) mg/dL Calcium (8.4-10.2) mg/dL Phosphorus 5.1 H (2.5-4.5) mg/dL Total Bilirubin (0.2-1.3) mg/dL AST (14-36) U/L ALT (9-52) U/L Alkaline Phosphatase (38-126) U/L Total Protein (6.3-8.2) g/dL Albumin (3.5-5.0) g/dL Crossmatch 03/11/18 03/11/18 Range/Units 04:12 05:22 RBC (3.80-5.40) m/uL Hgb (11.4-16.0) gm/dL Hct (34.0-46.0) % MCHC (31.0-37.0) g/dL RDW (11.5-15.5) % Plt Count (150-450) k/uL Neutrophils # (1.3-7.7) k/uL Lymphocytes # (1.0-4.8) k/uL PT (9.0-12.0) sec INR (<1.2) ABG HCO3 29 H (21-25) mmol/L ABG Total CO2 30 H (19-24) mmol/L ABG O2 Saturation 99.0 H (94-97) % Sodium (137-145) mmol/L Potassium (3.5-5.1) mmol/L BUN (7-17) mg/dL Creatinine (0.52-1.04) mg/dL Glucose (74-99) mg/dL POC Glucose (mg/dL) 116 H (75-99) mg/dL Calcium (8.4-10.2) mg/dL Phosphorus (2.5-4.5) mg/dL Total Bilirubin (0.2-1.3) mg/dL AST (14-36) U/L ALT (9-52) U/L Alkaline Phosphatase (38-126) U/L Total Protein (6.3-8.2) g/dL Albumin (3.5-5.0) g/dL Crossmatch Microbiology - Last 24 Hours (Table) 03/08/18 11:12 Gram Stain - Final Sputum Sputum Culture - Final Meg albicans 03/06/18 08:22 Blood Culture - Preliminary Blood No Growth after 96 hours Assessment and Plan Plan: Assessment 1 cardiogenic shock with multisystem organ failure. The patient remains intubated on a mechanical ventilator. Acute kidney injury is improving. Acute shock liver is improving. Nevertheless the patient is still pressor dependent and currently she is on 5 g of norepinephrine infusion for hemodynamic support. She has a poor LV function with an ejection fraction of around 20%. 2 CHF with systolic heart failure and ejection fraction of 20-25% based on yesterday's echocardiogram. The patient also has global severe hypokinesis, left ventricle is moderately dilated, severe mitral regurgitation, severe three- vessel regurgitation, severe pulmonary hypertension, no significant inspiratory collapse of the IVC consistent with right-sided volume overload 3 acute hypoxic respiratory failure secondary to above, chest x-ray from today showing bilateral pleural effusion and heart failure and edema. 4 acute kidney injury secondary to above, improving compared to yesterday and creatinine is down to 1.8 5 acute shock liver secondary to above, LFTs are improving 6 proximal atrial fibrillation , and the patient is currently in atrial fibrillation maintained on a Cardizem drip at 5 mg an hour 7 carotid artery disease with a previous left carotid endarterectomy 8 history of melanoma resected 9 coagulopathy post transfusion with fresh frozen plasma and the patient has a total of 10 units of fresh frozen plasma the most recent INR is around 3.2 10 severe lactic acidosis, recovered 11 acute thrombocytopenia secondary to above, rule out underlying component of DIC 12 acute leukocytosis secondary to above. The leukocytosis is also improvement in the white cell count is down to 10.1 13 acute elevation of the lipase questionable component of pancreatitis, improving 14 history of AICD placement 15 history of ESBL producing urine checked infection back in general 2017 with E. coli 16 chronic hypoxic respiratory failure and the patient is oxygen at 2 L per minute nasal cannula Plan Monitor mental status. The patient is still encephalopathic and I think this is related to shock liver and acute kidney injury and the sedative medication which probably is still affecting her underlying mental status. She did open up her eyes today upon being called her name that she is not moving her extremities no she is following any commands. CAT scan of the brain is negative and the patient will be given another 24 hours for close monitoring of her mentation. She'll be kept off sedation knowing that she is very symptoms with the mechanical ventilator and she is not showing any signs of agitation. Continue vent support. No vent setting changes for today. Keep the Cardizem drip at 5 g an hour. Wean the norepinephrine infusion if possible to maintain a artery pressure above 65. The IV Fluids to KVO. IV Lasix 40 Mg Every 8 Hours. Rest of the treatment is essentially supportive. I was about to start tube feeding yesterday however based on the family's indecisiveness and possibility of her going into comfort care this was held. I'm going to meet with the family today at around 10:00 I will make final recommendations far as her CODE STATUS and goals of treatment. The family's inclined towards comfort care measures. Would like to talk to the aggressive the family and there is a very complex family dynamics in this situation. I think she has some progress however long-term success in terms of meaningful recovery is considered to be of a lower chance in this patient based on the above- mentioned. We'll continue to follow. Continued care evaluation, 45 minutes. Time with Patient: Greater than 30
--- NOTE | 2018-03-11 09:29 | P.PN ---
Subjective Progress Note Date: 03/11/18 Principal diagnosis: Elevated liver enzymes Clinical status guarded . Intubated sedated. IV pressors. 72-year-old female admitted with shortness of breath CHF symptoms abdominal discomfort elevated liver enzymes septic type picture underlying history of atrial fibrillation AICD. Patient reevaluated today in regards to elevated liver enzymes. Hemoglobin 7.5. No active GI bleed. Afebrile. White count 10.1. Platelet 81 ,000. BUN 65. Creatinine 1.8. Liver chemistries not obtained today. Objective - Vital Signs Vital signs: Vital Signs Temp 99.8 F H 03/11/18 06:00 Pulse 108 H 03/11/18 07:48 Resp 25 H 03/11/18 06:00 BP 124/69 03/10/18 14:01 Pulse Ox 99 03/11/18 06:00 Intake & Output 03/10/18 03/11/18 03/11/18 18:59 06:59 18:59 Intake Total 1266.820 930.527 Output Total 835 760 Balance 431.820 170.527 Weight 92.2 kg 93 kg Intake: IV 554 743 0.9 NS pressure bag 39 33 Dextrose 5%-0.9% NaCl 1, 225 440 000 ml @ 40 mls/hr IV . Q24H [facility] Rx#:[id number] Meropenem 500 mg In 50 50 Sodium Chloride 0.9% 50 ml @ 100 mls/hr IVPB Q12HR [facility] Rx#:[id number] NS 240 220 Intake, IV Titration 319.820 127.527 Amount Norepinephrine 16 mg In 250.000 127.527 Sodium Chloride 0.9% 250 ml @ Titrate IV .Q0M [facility] Rx#:[id number] Propofol 1,000 mg In 69.820 Empty Bag 1 bag @ Titrate IV .Q0M [facility] Rx#: [id number] Tube Feeding 60 Blood Product 393 Ffp 24 Cp2d Unit 196 [id number] Ffp 24 Cp2d Unit 197 [id number] Output: Urine 835 760 Other: Voiding Method Indwelling Catheter Indwelling Catheter ABP, PAP, CO, CI - Last Documented Arterial Blood Pressure 127/67 - Exam General appearance: The patient is intubated sedated HET: Head is normocephalic and atraumatic. Pupils are equal and reactive. Oropharynx is clear without lesions. OG without blood. Neck: Supple without lymphadenopathy. Trachea midline. Heart: S1 S2. Regular rate and rhythm. Lungs: No crackles or wheezes are heard. Abdomen: Soft, nontender, nondistended with bowel sounds. No peritoneal signs. No palpable organomegaly or masses. Extremities: Normal skin color and turgor. No cyanosis, rash, ulceration, clubbing, or edema. Radial and pedal pulses are 2/4 bilaterally. Ortega with clear yellow urine. Neurological: Unable to assess intubated sedated - Labs CBC & Chem 7: 03/11/18 04:10 03/11/18 04:10 Labs: Abnormal Lab Results - Last 24 Hours (Table) 03/08/18 03/10/18 03/10/18 Range/Units 12:00 04:15 08:55 RBC (3.80-5.40) m/uL Hgb (11.4-16.0) gm/dL Hct (34.0-46.0) % MCHC (31.0-37.0) g/dL RDW (11.5-15.5) % Plt Count (150-450) k/uL Neutrophils # (1.3-7.7) k/uL Lymphocytes # (1.0-4.8) k/uL PT (9.0-12.0) sec INR (<1.2) ABG HCO3 (21-25) mmol/L ABG Total CO2 (19-24) mmol/L ABG O2 Saturation (94-97) % Sodium 136 L (137-145) mmol/L Potassium 2.8 L (3.5-5.1) mmol/L BUN 60 H (7-17) mg/dL Creatinine 2.16 H (0.52-1.04) mg/dL Glucose 124 H (74-99) mg/dL POC Glucose (mg/dL) (75-99) mg/dL Calcium 7.6 L (8.4-10.2) mg/dL Phosphorus 5.6 H (2.5-4.5) mg/dL Total Bilirubin 4.6 H (0.2-1.3) mg/dL AST 3337 H (14-36) U/L ALT 3515 H (9-52) U/L Alkaline Phosphatase 151 H (38-126) U/L Total Protein 4.9 L (6.3-8.2) g/dL Albumin 2.6 L (3.5-5.0) g/dL Crossmatch See Detail 03/10/18 03/10/18 03/10/18 Range/Units 13:06 13:10 20:00 RBC (3.80-5.40) m/uL Hgb (11.4-16.0) gm/dL Hct (34.0-46.0) % MCHC (31.0-37.0) g/dL RDW (11.5-15.5) % Plt Count (150-450) k/uL Neutrophils # (1.3-7.7) k/uL Lymphocytes # (1.0-4.8) k/uL PT (9.0-12.0) sec INR (<1.2) ABG HCO3 (21-25) mmol/L ABG Total CO2 (19-24) mmol/L ABG O2 Saturation (94-97) % Sodium (137-145) mmol/L Potassium 3.0 L 5.3 H (3.5-5.1) mmol/L BUN (7-17) mg/dL Creatinine (0.52-1.04) mg/dL Glucose (74-99) mg/dL POC Glucose (mg/dL) 104 H (75-99) mg/dL Calcium (8.4-10.2) mg/dL Phosphorus (2.5-4.5) mg/dL Total Bilirubin (0.2-1.3) mg/dL AST (14-36) U/L ALT (9-52) U/L Alkaline Phosphatase (38-126) U/L Total Protein (6.3-8.2) g/dL Albumin (3.5-5.0) g/dL Crossmatch 03/10/18 03/11/18 03/11/18 Range/Units 20:04 00:28 04:10 RBC 2.65 L (3.80-5.40) m/uL Hgb 7.5 L (11.4-16.0) gm/dL Hct 24.4 L (34.0-46.0) % MCHC 30.7 L (31.0-37.0) g/dL RDW 16.1 H (11.5-15.5) % Plt Count 81 L (150-450) k/uL Neutrophils # 8.7 H (1.3-7.7) k/uL Lymphocytes # 0.8 L (1.0-4.8) k/uL PT (9.0-12.0) sec INR (<1.2) ABG HCO3 (21-25) mmol/L ABG Total CO2 (19-24) mmol/L ABG O2 Saturation (94-97) % Sodium (137-145) mmol/L Potassium (3.5-5.1) mmol/L BUN (7-17) mg/dL Creatinine (0.52-1.04) mg/dL Glucose (74-99) mg/dL POC Glucose (mg/dL) 111 H 102 H (75-99) mg/dL Calcium (8.4-10.2) mg/dL Phosphorus (2.5-4.5) mg/dL Total Bilirubin (0.2-1.3) mg/dL AST (14-36) U/L ALT (9-52) U/L Alkaline Phosphatase (38-126) U/L Total Protein (6.3-8.2) g/dL Albumin (3.5-5.0) g/dL Crossmatch 03/11/18 03/11/18 03/11/18 Range/Units 04:10 04:10 04:12 RBC (3.80-5.40) m/uL Hgb (11.4-16.0) gm/dL Hct (34.0-46.0) % MCHC (31.0-37.0) g/dL RDW (11.5-15.5) % Plt Count (150-450) k/uL Neutrophils # (1.3-7.7) k/uL Lymphocytes # (1.0-4.8) k/uL PT 28.6 H (9.0-12.0) sec INR 3.2 H (<1.2) ABG HCO3 (21-25) mmol/L ABG Total CO2 (19-24) mmol/L ABG O2 Saturation (94-97) % Sodium (137-145) mmol/L Potassium 5.4 H (3.5-5.1) mmol/L BUN 65 H (7-17) mg/dL Creatinine 1.87 H (0.52-1.04) mg/dL Glucose 104 H (74-99) mg/dL POC Glucose (mg/dL) 116 H (75-99) mg/dL Calcium (8.4-10.2) mg/dL Phosphorus 5.1 H (2.5-4.5) mg/dL Total Bilirubin (0.2-1.3) mg/dL AST (14-36) U/L ALT (9-52) U/L Alkaline Phosphatase (38-126) U/L Total Protein (6.3-8.2) g/dL Albumin (3.5-5.0) g/dL Crossmatch 03/11/18 Range/Units 05:22 RBC (3.80-5.40) m/uL Hgb (11.4-16.0) gm/dL Hct (34.0-46.0) % MCHC (31.0-37.0) g/dL RDW (11.5-15.5) % Plt Count (150-450) k/uL Neutrophils # (1.3-7.7) k/uL Lymphocytes # (1.0-4.8) k/uL PT (9.0-12.0) sec INR (<1.2) ABG HCO3 29 H (21-25) mmol/L ABG Total CO2 30 H (19-24) mmol/L ABG O2 Saturation 99.0 H (94-97) % Sodium (137-145) mmol/L Potassium (3.5-5.1) mmol/L BUN (7-17) mg/dL Creatinine (0.52-1.04) mg/dL Glucose (74-99) mg/dL POC Glucose (mg/dL) (75-99) mg/dL Calcium (8.4-10.2) mg/dL Phosphorus (2.5-4.5) mg/dL Total Bilirubin (0.2-1.3) mg/dL AST (14-36) U/L ALT (9-52) U/L Alkaline Phosphatase (38-126) U/L Total Protein (6.3-8.2) g/dL Albumin (3.5-5.0) g/dL Crossmatch Microbiology - Last 24 Hours (Table) 03/08/18 11:12 Gram Stain - Final Sputum Sputum Culture - Final Meg albicans 03/06/18 08:22 Blood Culture - Preliminary Blood No Growth after 96 hours Assessment and Plan (1) Elevated liver enzymes Narrative/Plan: 72-year-old female admitted with acute on chronic congestive heart failure ischemic cardiomyopathy shortness of breath and elevated liver enzymes consistent with acute hepatocellular injury shock liver congestive hepatopathy. Clinical status consistent with acute septic type cardiac shock with multiorgan failure septic picture appears to be less likely cause at this time. Current Visit: Yes Status: Acute Code(s): R74.8 - ABNORMAL LEVELS OF OTHER SERUM ENZYMES SNOMED Code(s): 254958274 (2) Elevated amylase and lipase Current Visit: Yes Status: Acute Code(s): R74.8 - ABNORMAL LEVELS OF OTHER SERUM ENZYMES SNOMED Code(s): 717793608 (3) Congestive heart failure Current Visit: Yes Status: Acute Code(s): I50.9 - HEART FAILURE, UNSPECIFIED SNOMED Code(s): 67393860 (4) Acute kidney injury Current Visit: No Status: Acute Code(s): N17.9 - ACUTE KIDNEY FAILURE, UNSPECIFIED SNOMED Code(s): 32281032 (5) Ischemic cardiomyopathy Current Visit: No Status: Chronic Code(s): I25.5 - ISCHEMIC CARDIOMYOPATHY SNOMED Code(s): 981041015 (6) Elevated lactic acid level Current Visit: Yes Status: Acute Code(s): R79.89 - OTHER SPECIFIED ABNORMAL FINDINGS OF BLOOD CHEMISTRY SNOMED Code(s): 4742741 (7) Coagulopathy Current Visit: Yes Status: Acute Code(s): D68.9 - COAGULATION DEFECT, UNSPECIFIED SNOMED Code(s): 27616242 (8) Anemia Narrative/Plan: Without overt bleeding possible acute blood loss status post blood transfusion and FFP vitamin K Current Visit: Yes Status: Acute Code(s): D64.9 - ANEMIA, UNSPECIFIED SNOMED Code(s): 456414271 Plan: 1. Symptomatic supportive measures. LFTs are slowly improving. Overall condition is guarded. Continue GI prophylaxis CBC monitoring blood transfusion FFP vitamin K as indicated. Daily monitoring of CMP, CBC, INR. Assessment and plan a care discussed with Dr. Stone
[2018-03-11 09:51] LABS: Glucose,Whole Blood 115 mg/dL (75-99)
[2018-03-11] MEDS: POTASSIUM CHLORIDE ER 20 MEQ TAB.ER PO SCH (10:02)
[2018-03-11 10:03] VITALS: BMI 34.1
[2018-03-11] MEDS: ALLOPURINOL 100 MG TAB PO SCH (10:03)
[2018-03-11] MEDS: METOPROLOL TARTRATE 25 MG TAB PO SCH ×2 (10:03→21:48)
[2018-03-11] MEDS: PANTOPRAZOLE 40 MG/10 ML VIAL IVP SCH (10:03)
[2018-03-11] MEDS: guaiFENesin 600 MG TABLET.ER PO SCH ×2 (10:03→21:48)
[2018-03-11] MEDS: SENNOSIDES-DOCUSATE SODIUM 1 EACH TAB PO SCH ×2 (10:03→21:48)
[2018-03-11] MEDS: SEVELAMER 800 MG TAB PO SCH ×3 (10:03→16:42)
[2018-03-11] MEDS: CHLORHEXIDINE GLUCONATE 15 ML CUP MUCOUS MEM SCH ×2 (10:05→21:48)
[2018-03-11] MEDS: MEROPENEM 500 MG in SODIUM CHLORIDE 0.9% 50 ML IVPB SCH ×2 (10:05→21:50)
[2018-03-11] MEDS: DEXTROSE 5%-0.9% NACL 1,000 ML IV SCH (10:55)
--- NOTE | 2018-03-11 12:11 | CONS ---
CONSULTATION Since yesterday, patient has been on sedation holiday, remains intubated and on vent. No spontaneous activity at this time. Metabolically, she is improving. Hemoglobin is 7.5. INR has come down to 3.2. Her renal insufficiency is getting better. I do not have any liver enzymes on her today. Last night she developed atrial fibrillation with rapid ventricular rate. This morning,. heart rate is better controlled. She is on a beta richmond at the moment, still requiring pressors but they are being weaned. PHYSICAL EXAM: Patient is in A. fib with a heart rate in the 105-110 beats per minute. Blood pressure is 120/70. Chest exam reveals diminished air entry with occasional rhonchi. Heart exam reveals first and second heart sounds, irregular rhythm. Exam of the extremities reveals trace edema. LABS: Show a hemoglobin of 7.5. INR is 3.2. ASSESSMENT: 1. Multiorgan failure with septic shock. 2. Atrial fibrillation with poorly controlled ventricular rate. 3. Hypotension. PLAN: Patient will continue the beta-blockers that she is currently on, intravenous Cardizem as needed. Prognosis remains guarded. MMODL / IJN: [id number] /
[2018-03-11 12:57] LABS: Glucose,Whole Blood 115 mg/dL (75-99)
[2018-03-11 13:31] LABS: Albumin 2.7 g/dL (3.5-5.0); Total Bilirubin 6.2 mg/dL (0.2-1.3); Total Protein 5.3 g/dL (6.3-8.2)
--- NOTE | 2018-03-11 15:26 | P.PN ---
Subjective Progress Note Date: 03/11/18 This is a 72 year-old female. Her primary care physician is Dr. Basil Crowell. Sees Dr. Real Jackson at [facility] She has a past medical history of hypertension, gastroesophageal reflux disease, carotid stenosis and non ischemic cardiomyopathy status post AICD with reported EF 30 -35 %, gout, anxiety and depression. She was recently hospitalized on June 08 following a fall secondary to dizziness with orthostatic changes ruled out. She ended up having a left radial fracture and left pelvic fracture. She was seen by orthopedics and they recommended splint and sling to the left arm and toe-touch weightbearing on the left lower extremity. Patient was again admitted on June 20 with confusion likely secondary to tramadol. She did present with history of passing out. AICD interrogation was done during the admission and found to have normal service function. Patient was again seen in 2017 with altered mental status sec to benzodiazepine which was held. Last seen on January for acute chest pain but stress test was negative Patisammn was admitted for bilateral pneumonia with CHF exacerbation. Patient comes in again with acute shortness of breath associated with cough with sputum production. Patient states she's been noticing reddish's phlegm production for the past 2 weeks. She states she was never well was discharged from the hospital. Patient had a follow-up appointment with Dr. Schaffer tomorrow but hasn't seen a primary care physician for the past 2 weeks. Patient received breathing treatments via EMS before coming to the hospital. There was slight improvement in symptoms on arrival to the ER but patient was found to be dyspneic in the ER. Vitas obtain suggested temp of 98.5, pulse rate 104, blood pressure 133/86, saturating well on 97% on 2 L which is patient' s baseline. Chest x-ray obtained suggested cardiomegaly and COPD but no consolidation with concern for pneumonia. Labs ordered suggestive hemoglobin 10.3 which is stable from the previous admissions. Her INR was 2.5 but patient is not on Coumadin. Also elevated was d-dimer 4.28. Creatinine is above the baseline of 1.2. LFTs were elevated with AST 1448, AST 1090, alkaline phosphatase 170. ProBNP elevated to 18,300. Troponin times 10.030 albumin 3.3. Based on patient's findings and symptoms there is a concern for pulmonary embolism though CTA cannot be ordered due to increased creatinine. V/Q scan ordered. Due to the hepatic congestion an acute elevation in liver enzymes liver ultrasound ordered to rule out cholecystitis/choledocholithiasis. Patient also complaining of significant shoulder pain and limited to the joint mobility likely secondary to arthritis. Pro-calcitonin ordered. Acute hepatitis panel ordered 03/07: Shoulder x-ray was negative. VQ scan shows multiple matching defects corresponds to intermediate probability of pulmonary embolism. Pulmonary is on consult. Patient has been seen by cardiology for acute exacerbation of chronic systolic heart failure with recommendations to continue IV Lasix. We did decrease Lasix to 40 mg IV daily. Echocardiogram report is pending. Patient is complaining of cough that is nonproductive and denies any blood in her cough. Robitussin added. Her shortness of breath is improved. Her pain in her shoulder is okay at this time. She does complain of nausea. Abdominal ultrasound showed probable tiny gallstones. Mild gallbladder wall thickening consistent with acute on chronic cholecystitis. No dilated ducts. Dr. Kaye plans no intervention at this time await GI evaluation. Patient is on a full liquid diet and fluid restriction of 2000 ML's added. 03/08: Last evening patient has not run off-colored 13 beats of V. tach and heart rate of 150-170. A Team was called and patient was in A. fib RVR. Patient was given IV magnesium and cardiology ordered Lopressor. A. fib was better controlled rate and started amiodarone bolus and protocol per Dr. Merino. Early this morning, another A Team was called for blood pressure of 56 /37 and patient was ordered for 500 mL bolus and transferred to ICU and started on vasopressors. Amiodarone drip was stopped. Patient required high-dose norepinephrine, lines were placed by Dr. Lauri Daley in, patient became lethargic and encephalopathy. Case discussed with the patient's and he wanted the patient intubated and patient was intubated and on mechanical ventilation. She was noted to have leukocytosis, anemia and thrombocytopenia, INR is greater than 10, liver function test are significantly elevated as well as CK and renal function. Amylase this morning was 114 and lipase 1053. 03/09: Patient remains intubated and on mechanical ventilation. She has been afebrile. She remains on norepinephrine. She is status post 2 unit packed RBCs as well as fresh frozen plasma. White count is down to 14.6, hemoglobin is 8.2 and platelet count is 94. Dr. Kaye has signed off the case as there is no evidence of abdominal sepsis. Patient is also followed by GI, nephrology, senior interactive developer. Liver function tests are slightly improved from yesterday. INR this morning is 5.3. Patient is status post vitamin K yesterday and repeat today. 03/10: Patient had dilated unresponsive pupils this morning. CT of the brain showed stable exam and consider MRI. Patient remains intubated and on mechanical ventilation. Discussed with patient's family and they do not want her transferred to [facility]. Discussed also the patient's prognosis is poor and she is not heading in the right direction for improvement. She is on lower sedation. She continues on norepinephrine. She has been suctioned of blood from the oral cavity. Metoprolol was resumed yesterday for heart rate but her blood pressure did decrease somewhat. INR today is at 3.4, hemoglobin 7.7 and platelet count 80. She is receiving fresh frozen plasma today. Urine output is at 40 mL per hour. Temperature 90.4 axillary. 03/11: Patient is currently off sedation. There is a small amount of reaction to stimuli. She is on Cardizem drip for A. fib with RVR started last evening. Patient continues on low dose of norepinephrine. She is on meropenem. She remains intubated and on mechanical ventilation. Urine output has been running 40-50 mL/h. She has had continued mild improvement of her liver function tests. Family is considering comfort care. There is a family meeting scheduled with Dr. Lang. Objective - Vital Signs Vital signs: Vital Signs Temp 99.8 F H 03/11/18 06:00 Pulse 108 H 03/11/18 07:48 Resp 25 H 03/11/18 06:00 BP 124/69 03/10/18 14:01 Pulse Ox 99 03/11/18 06:00 Intake & Output 03/10/18 03/11/18 03/11/18 18:59 06:59 18:59 Intake Total 1266.820 930.527 43.023 Output Total 835 760 Balance 431.820 170.527 43.023 Weight 92.2 kg 93 kg 93 kg Intake: IV 554 743 0.9 NS pressure bag 39 33 Dextrose 5%-0.9% NaCl 1, 225 440 000 ml @ 40 mls/hr IV . Q24H [facility] Rx#:[id number] Meropenem 500 mg In 50 50 Sodium Chloride 0.9% 50 ml @ 100 mls/hr IVPB Q12HR [facility] Rx#:[id number] NS 240 220 Intake, IV Titration 319.820 127.527 43.023 Amount Norepinephrine 16 mg In 250.000 127.527 43.023 Sodium Chloride 0.9% 250 ml @ Titrate IV .Q0M [facility] Rx#:[id number] Propofol 1,000 mg In 69.820 Empty Bag 1 bag @ Titrate IV .Q0M [facility] Rx#: [id number] Tube Feeding 60 Blood Product 393 Ffp 24 Cp2d Unit 196 [id number] Ffp 24 Cp2d Unit 197 [id number] Output: Urine 835 760 Other: Voiding Method Indwelling Catheter Indwelling Catheter ABP, PAP, CO, CI - Last Documented Arterial Blood Pressure 127/67 - Exam General appearance: no acute distress, obese - EENT Eyes: anicteric sclerae, PERRLA, normal appearance ENT: hearing grossly normal, intubated on mechanical ventilation, ET and orogastric tube in place - Neck Neck: no lymphadenopathy, normal ROM, no other, no rigidity, no stridor, no thyromegaly - Respiratory Respiratory: bilateral: Decreased bilaterally. No rhonchi or wheezing heard - Cardiovascular Rhythm: regular Heart sounds: normal: S1, S2 Abnormal Heart Sounds: no systolic murmur, no diastolic murmur, no rub, no S3 Gallop, no S4 Gallop - Gastrointestinal General gastrointestinal: normal bowel sounds, soft - Integumentary Integumentary: no rash - Neurologic Neurologic: Dilated unresponsive pupils - Musculoskeletal Musculoskeletal: gait normal, strength equal bilaterally - Psychiatric Psychiatric: Sedated - Labs CBC & Chem 7: 03/11/18 04:10 03/11/18 04:10 Labs: Abnormal Lab Results - Last 24 Hours (Table) 03/08/18 03/10/18 03/10/18 Range/Units 12:00 04:15 08:55 RBC (3.80-5.40) m/uL Hgb (11.4-16.0) gm/dL Hct (34.0-46.0) % MCHC (31.0-37.0) g/dL RDW (11.5-15.5) % Plt Count (150-450) k/uL Neutrophils # (1.3-7.7) k/uL Lymphocytes # (1.0-4.8) k/uL PT (9.0-12.0) sec INR (<1.2) ABG HCO3 (21-25) mmol/L ABG Total CO2 (19-24) mmol/L ABG O2 Saturation (94-97) % Potassium 2.8 L (3.5-5.1) mmol/L BUN (7-17) mg/dL Creatinine (0.52-1.04) mg/dL Glucose (74-99) mg/dL POC Glucose (mg/dL) (75-99) mg/dL Phosphorus (2.5-4.5) mg/dL AST 3337 H (14-36) U/L ALT 3515 H (9-52) U/L Crossmatch See Detail 03/10/18 03/10/18 03/10/18 Range/Units 13:06 13:10 20:00 RBC (3.80-5.40) m/uL Hgb (11.4-16.0) gm/dL Hct (34.0-46.0) % MCHC (31.0-37.0) g/dL RDW (11.5-15.5) % Plt Count (150-450) k/uL Neutrophils # (1.3-7.7) k/uL Lymphocytes # (1.0-4.8) k/uL PT (9.0-12.0) sec INR (<1.2) ABG HCO3 (21-25) mmol/L ABG Total CO2 (19-24) mmol/L ABG O2 Saturation (94-97) % Potassium 3.0 L 5.3 H (3.5-5.1) mmol/L BUN (7-17) mg/dL Creatinine (0.52-1.04) mg/dL Glucose (74-99) mg/dL POC Glucose (mg/dL) 104 H (75-99) mg/dL Phosphorus (2.5-4.5) mg/dL AST (14-36) U/L ALT (9-52) U/L Crossmatch 03/10/18 03/11/18 03/11/18 Range/Units 20:04 00:28 04:10 RBC 2.65 L (3.80-5.40) m/uL Hgb 7.5 L (11.4-16.0) gm/dL Hct 24.4 L (34.0-46.0) % MCHC 30.7 L (31.0-37.0) g/dL RDW 16.1 H (11.5-15.5) % Plt Count 81 L (150-450) k/uL Neutrophils # 8.7 H (1.3-7.7) k/uL Lymphocytes # 0.8 L (1.0-4.8) k/uL PT (9.0-12.0) sec INR (<1.2) ABG HCO3 (21-25) mmol/L ABG Total CO2 (19-24) mmol/L ABG O2 Saturation (94-97) % Potassium (3.5-5.1) mmol/L BUN (7-17) mg/dL Creatinine (0.52-1.04) mg/dL Glucose (74-99) mg/dL POC Glucose (mg/dL) 111 H 102 H (75-99) mg/dL Phosphorus (2.5-4.5) mg/dL AST (14-36) U/L ALT (9-52) U/L Crossmatch 03/11/18 03/11/18 03/11/18 Range/Units 04:10 04:10 04:12 RBC (3.80-5.40) m/uL Hgb (11.4-16.0) gm/dL Hct (34.0-46.0) % MCHC (31.0-37.0) g/dL RDW (11.5-15.5) % Plt Count (150-450) k/uL Neutrophils # (1.3-7.7) k/uL Lymphocytes # (1.0-4.8) k/uL PT 28.6 H (9.0-12.0) sec INR 3.2 H (<1.2) ABG HCO3 (21-25) mmol/L ABG Total CO2 (19-24) mmol/L ABG O2 Saturation (94-97) % Potassium 5.4 H (3.5-5.1) mmol/L BUN 65 H (7-17) mg/dL Creatinine 1.87 H (0.52-1.04) mg/dL Glucose 104 H (74-99) mg/dL POC Glucose (mg/dL) 116 H (75-99) mg/dL Phosphorus 5.1 H (2.5-4.5) mg/dL AST (14-36) U/L ALT (9-52) U/L Crossmatch 03/11/18 03/11/18 Range/Units 05:22 09:48 RBC (3.80-5.40) m/uL Hgb (11.4-16.0) gm/dL Hct (34.0-46.0) % MCHC (31.0-37.0) g/dL RDW (11.5-15.5) % Plt Count (150-450) k/uL Neutrophils # (1.3-7.7) k/uL Lymphocytes # (1.0-4.8) k/uL PT (9.0-12.0) sec INR (<1.2) ABG HCO3 29 H (21-25) mmol/L ABG Total CO2 30 H (19-24) mmol/L ABG O2 Saturation 99.0 H (94-97) % Potassium (3.5-5.1) mmol/L BUN (7-17) mg/dL Creatinine (0.52-1.04) mg/dL Glucose (74-99) mg/dL POC Glucose (mg/dL) 115 H (75-99) mg/dL Phosphorus (2.5-4.5) mg/dL AST (14-36) U/L ALT (9-52) U/L Crossmatch Microbiology - Last 24 Hours (Table) 03/06/18 08:22 Blood Culture - Preliminary Blood No Growth after 120 hours 03/08/18 11:12 Gram Stain - Final Sputum Sputum Culture - Final Meg albicans Assessment and Plan Plan: #1 acute on chronic hypoxic respiratory failure secondary to acute on chronic systolic heart failure, pulmonary edema, intermediate for pulmonary embolism not completely ruled out, mild intermittent asthma without exacerbation. No signs of pneumonia. Patient had further decline of her respiratory status and required intubation and mechanical ventilation. Off Lasix, off Solu-Medrol, monitor input and output and daily weight. Continue DuoNeb as needed for shortness of breath. Pulmonary consult #2 acute kidney injury with CKD3, metabolic acidosis and hyperkalemia. Nephrology consult. #3 acute transaminitis with increase in alkaline phosphatase. Ultrasound abdomen reveals acute on chronic cholecystitis. Hepatic congestion likely secondary to CHF. Continue meropenem. #4 acute on chronic systolic heart failure with known ejection fraction noted to be 30-35% in January 2018, status post AICD which was interrogated in January 2018. Repeat echocardiogram. Off IV Lasix. Cardiology consult appreciated. #5 cardiogenic shock with multiorgan failure requiring intubation and mechanical ventilation, vasopressors support. Patient is managed in the intensive care unit by Dr. Lang. Consult with nephrology added for acute kidney injury. Patient is currently on sodium bicarb drip, dobutamine drip and norepinephrine drip. #6. Paroxysmal Atrial fibrillation on xarelto rate controlled currently in sinus rhythm. #7 QT prolongation watch for QT prolongation medication avoid Zofran, levofloxacin and other, and QT prolonging medications . #8 hematemesis versus hemoptysis appears chronic. Continue Protonix #9 recurrent depression continue citalopram 40 mg by mouth daily at bedtime #10 gout stable continue allopurinol #11 generalized anxiety disorder continue Xanax 0.5 daily 1 mg at bedtime #12 DVT prophylaxis patient on xarelto #13 GI prophylaxis with Protonix #14 history of mild intermittent asthma, no documented history of COPD. #15. Thrombocytopenia due to cardiogenic shock. #16 DIC secondary to cardiogenic shock. #17 multiorgan failure with acute kidney injury, acute respiratory failure, shock liver, thrombocytopenia and leukocytosis. #18 metabolic encephalopathy secondary to multiple medical problems. Prognosis guarded CODE STATUS full code Discharge plan: Possible comfort care Impression and plan of care have been directed as dictated by the signing physician. Nancy Olivera nurse practitioner acting as scribe for signing physician.
[2018-03-11 16:28] LABS: Glucose,Whole Blood 109 mg/dL (75-99)
--- NOTE | 2018-03-11 16:53 | PN ---
PROGRESS NOTE Patient is seen for followup for acute kidney injury. Currently she is hemodynamically stable. Levophed is much decreased. Patient remains on IV fluids. She has had good urine output. No ongoing bleeding or diarrhea noted. On examination, patient is sedated. She is on the vent. Blood pressure 98/88, heart rate 122 per minute. EXAMINATION OF THE HEART: S1, S2. EXAMINATION OF LUNGS: Bilateral breath sounds are heard. ABDOMEN: Soft, non-tender. Examination of lower extremities shows trace edema. INDUSTRY ANALYST exam cannot be performed. Labs show sodium 139, potassium 5.4, chloride 101, BUN 65, serum creatinine 1.87, hemoglobin 7.5 g/dL. ASSESSMENT: 1. Acute kidney injury secondary to hypotension, hypoperfusion and shock, currently improving, with good urine output. 2. Mild hyperkalemia. I will discontinue the potassium. 3. Vent-dependent respiratory failure. 4. Severe cardiomyopathy with ejection fraction 20% to 25%. 5. Atrial fibrillation with rapid ventricular response, maintained on beta blockers. 6. Coagulopathy, status post FFPs; hemoglobin at 7.5 g/dL, which is stable for the last 2 days. PLAN: Discontinue potassium chloride. Continue to try and wean down Levophed. Continue to monitor hemoglobin. MMODL / IJN: [id number] /
[2018-03-11] MEDS: FUROSEMIDE 10 MG/ML 10 ML VIAL IV SCH (17:06)
[2018-03-11] MEDS ORDERED: DILTIAZEM DRIP BOLUS FROM BAG 1 MG SOLN IV ONE (19:42)
[2018-03-11 21:30] LABS: Glucose,Whole Blood 134 mg/dL (75-99)
[2018-03-12 01:07] LABS: Glucose,Whole Blood 117 mg/dL (75-99)
[2018-03-12] MEDS: INSULIN ASPART 100 UNIT/ML 1 ML 10 ML VIAL SQ SCH ×6 (01:10→20:55)
[2018-03-12] MEDS: FUROSEMIDE 10 MG/ML 10 ML VIAL IV SCH ×2 (01:20→10:48)
[2018-03-12] MEDS: DILTIAZEM 50 MG in SODIUM CHLORIDE 0.9% 40 ML IV SCH ×4 (02:25→22:09)
[2018-03-12] MEDS: IPRATROPIUM-ALBUTEROL 3 ML NEB INHALATION SCH ×5 (03:49→20:44)
[2018-03-12 04:41] LABS: Glucose,Whole Blood 125 mg/dL (75-99)
[2018-03-12 05:57] LABS: ABG Base Excess -0.4 mmol/L; ABG HCO3 24 mmol/L (21-25); ABG Oxygen Saturation 92.9 % (94-97); ABG PCO2 33 mmHg (35-45); ABG PH 7.46 (7.35-7.45); ABG PO2 67 mmHg (83-108); ABG TCO2 25 mmol/L (19-24)
--- NOTE | 2018-03-12 06:46 | XR ---
EXAMINATION TYPE: XR chest 1V DATE OF EXAM: 03/12/2018 HISTORY: shortness of breath. REFERENCE: Previous study dated 03/11/2018. FINDINGS: The patient is NG tube and ET tube remain in place, unchanged in appearance. There is a mul tilead pacing device in place on the left. There is a catheter which appears to be in place via a rig ht subclavian approach. Its tip travels cephalad towards the head. Alternatively, this may be a right internal jugular catheter with its tip in the axillary vein. The heart is enlarged. There is vascular congestion. There is bibasilar airspace disease. There are b ilateral effusions. There is no solange edema. IMPRESSION: 1. CARDIOMEGALY. 2. BIBASILAR AIRSPACE DISEASE. 3. BILATERAL EFFUSIONS. 4. MALPLACED RIGHT-SIDED CENTRAL VENOUS CATHETER.
[2018-03-12 07:14] LABS: Anisocytosis Slight; Basophils % (A) 0 %; Eosinophils % (A) 0 %; HCT 20.9 % (34.0-46.0); Hypochromasia Marked; Lymphocytes # (A) 0.8 k/uL (1.0-4.8); Lymphocytes % (A) 9 %; MCV 93.3 fL (80.0-100.0); Mean Platelet Volume 10.2; Monocytes # (A) 0.6 k/uL (0-1.0); Monocytes % (A) 6 %; Neutrophils # (A) 7.4 k/uL (1.3-7.7); Neutrophils % (A) 82 %; Platelet Count 89 k/uL (150-450); RBC 2.24 m/uL (3.80-5.40); RDW 16.2 % (11.5-15.5)
[2018-03-12 07:16] LABS: HGB 6.3 gm/dL (11.4-16.0)
[2018-03-12 07:24] LABS: Albumin 1.6 g/dL (3.5-5.0); Magnesium 1.5 mg/dL (1.6-2.3); Phosphorus 4.3 mg/dL (2.5-4.5); Total Bilirubin 4.9 mg/dL (0.2-1.3); Total Protein 3.5 g/dL (6.3-8.2)
[2018-03-12 07:45] LABS: Calcium 5.9 mg/dL (8.4-10.2)
[2018-03-12] MEDS ORDERED: Magnesium Replacement Protocol 1 EACH MISC MISCELLANE PRN (08:26)
[2018-03-12] MEDS ORDERED: SODIUM BICARB 8.4% 50 ML SYR (1 MEQ/ML) IV ONE ×2 (08:55→09:53)
--- NOTE | 2018-03-12 09:06 | P.PN ---
Subjective Progress Note Date: 03/12/18 This is 72-year-old white female patient of Dr. Crowell, who presented to the emergency department when 03/06/2018 were evaluation of shortness of breath , cough with yellow sputum production. Patient denied any fever or chills, denied any chest pain. Past medical history is positive for hypertension, ischemic cardiomyopathy status post AICD placement with EF of 30-35%, atrial fibrillation, congestive heart failure, anxiety, depression, carotid stenosis, GERD, and previous episodes of pneumonia. Patient was recently hospitalized in February, for bilateral lower lobe pneumonia, in addition to a CHF exacerbation. She did require admission to the intensive care unit, she was treated with accommodation of Zosyn and vancomycin. She improved, was discharged home. On arrival to the emergency department patient was significantly dyspneic, she was given breathing treatments. Reports difficulty breathing with exertion, and some orthopnea. She was also complaining of right shoulder pain, denies any falls or trauma. She reports dry cough, no peripheral swelling. Significant weight gain. X-ray was completed in the emergency department and showed cardiomegaly and COPD. EKG showed normal sinus rhythm without acute ST/T-wave abnormalities. Lab work was done, and was negative for any evidence of leukocytosis, WBC is 8.9, hemoglobin is 10.3, INR was 2.5, d-dimer was elevated to 4.28, sodium is 135, B1 is 40, creatinine is 1.6. Patient's AST was 1448, and ALT was 1090, and with alkaline phosphatase at 170. ProBNP was 18,300, and troponins were 0.027, 0.024, 0.034. VQ scan was obtained, which showed intermediate probability of pulmonary embolism, chest x-ray on 03/06/2018 showed congestive heart failure. Patient is normally on home oxygen at 2 L per nasal cannula. She is a history of smoking, she quit smoking in 1997, prior to that smoked a pack a day for 20 years. She denies any history of COPD. She was supposed to see Dr. Lang in follow-up in the office this week. Patient was started on IV diuretics, she did receive IV Solu- Medrol, nebulized bronchodilators and empiric antibiotics.. She is diuresing. On today's exam, she is feeling better, breathing easier. No wheezing, no significant coughing, chest congestion or sputum production. Remains afebrile, denies any chest pain, worsening shortness of breath. On 03/08/2018, the patient is being seen in the intensive care unit. Condition decompensated significantly overnight. The patient became progressively more hypotensive and lethargic and and around 4:30 AM a emergency calls was made to the A team and the patient was found to be severely acidotic him a essentially lactic acidosis and the lactic acid level was 12. The patient was oliguric/ anuric and producing minimal amount of urine output. Potassium level was at 6.1. Creatinine was up to 3.4. There had been further increase in the liver function test and an ALT of 6100 and AST of 7500. Lipase was 1053. The patient was seen by general surgery and the patient was seen by gastroenterology and this is considered to be a representation of shock liver rather than acute intra-abdominal issue/acute abdomen. In the bread wrapper operator hours, the patient was started on Pres. patient is currently on high-dose norepinephrine infusion which was as high as 40 g per KG per minute. I saw the patient in the ICU first thing in the morning. The patient was in shock. She was encephalopathic and extremely lethargic. She was cold and clammy and diminished pulses in the left lower extremity and upper extremity unless debilitated checked by Doppler. The patient was still communicating and responding only to simple commands. Nevertheless, she was quite encephalopathic and lethargic and drowsy. Mother was at the bedside. I did brief discussion with the and gave him an update on her condition. Subsequently, I had to insert a triple lumen catheter an outlying catheter for hemodynamic monitoring and ongoing hemodynamic support. I also intubated the patient states that on mechanical ventilation follow-up blood gases are still pending. Meanwhile the patient received a total of 2 L of IV fluid in the form of normal saline. Urine output still diminished. Following an outlying catheter insertion to systolic blood pressure was measured to be at 1:30. Pressors are currently being gradually weaned off. Her cardiac rhythm is sinus although she is having short runs of atrial fibrillation. She is currently off amiodarone. She has off Eliquis. She is afebrile. She is sedated for the purpose of intubation mechanical ventilation. I put the patient on assist control mode of ventilation following blood gases are still pending. Post intubation chest x-ray show that the patient's right IJ line has been directed however the right subclavian. ET tube and orogastric tube are all On 03/09/2018, I'm seeing this patient in intensive care unit for a follow-up. The patient remains intubated on a mechanical ventilator. This morning, she is still sedated with Diprivan which is running at 40 g per KG per minute. She is an assist-control mode of ventilation. The blood. This morning showed considerable degree of respiratory alkalosis and based on that the necessity vent changes was done. Note that the patient's pH was at 7.69 with a pCO2 of 22 and pO2 of 64 and based on that, the tidal volume was up to 450 and the respiratory rate will drop down to 16. She still on a 50% FiO2 with a PEEP of 5. Today's chest x-ray showing it up in the bilateral pleural effusion small pulmonary vessel congestion. ET tube is high in the trachea. The right IJ is going to the right subclavian. OG tube is in place. Note that the patient is still in cardiogenic shock although hemodynamics is improved compared to yesterday. She was resuscitated with bicarb drip. The bicarb drip was taken of this morning because of the extensive metabolic alkalosis. In any rate, the serum bicarb is up to 19 and the lactic acid is to be followed up today. The patient is currently on 13 mics of levo fed. The patient is producing urine output in the order of 100 250 mL an hour. Renal function is improving and the creatinine is down to 2.6. Liver functions is also improving and the AST and ALP are in the decline. The patient received a total of 2 units of packed RBC and 6 frozen plasma yesterday and the follow-up coagulation profile still is off overall improved. INR is at 5.3 with a PT of 48.1. The platelet counts is at 90,000. The right IJ catheter is not being utilized however it has not been pulled out due to concerns of a hematoma evolution in the right flank area and the right chest area. The hematoma today's evaluation is soft and has not extended any further. NG tube is in place. She will feeds are not being offered at this point in time due to the shock liver. The cardiac rhythm is sinus. No episodes of A. fib was noted. The patient has a triple lumen catheter in the right femoral area and the patient has a arterial line in the right groin and there is no hematoma formation in the right groin area. Pulses in lower extremities is improved compared to yesterday and overall hemodynamics is better with less amount of pressors and better organ function and perfusion on today's evaluation. All of the cultures of been negative and the patient empirically covered with a combination of Merrem and vancomycin. On 03/10/2018 the patient is being seen in follow-up in the intensive care unit. This morning, the patient remains intubated on a mechanical ventilator. Orogastric and orotracheal tube are both in place. No significant worsening in the neck hematoma and the hematoma itself is soft and is palpable. The patient remains sedated on Diprivan and she is calm and comfortable and when the process of getting a sedation holiday today. She is on mechanical ventilator on assist control mode with essentially the same vent settings include a tidal volume of 450 with a rate of 16 and FiO2 of 40% and a PEEP of 5. Her morning blood gases showed a pH of 7.44 with a pCO2 of 45 and pO2 of 79 and this was on FiO2 of 40%. The chest x-ray is showing bibasilar pulmonary infiltrates and worsening in the pulmonary vessel congestion/edema compared to yesterday. There is small bilateral pleural effusion. The lines are all unchanged. I'm still awaiting for her coagulopathy to correct prior to removing the triple- lumen catheter to in her right neck. On today's blood work, the patient's INR is at 3.4. Based on this, the patient was given additional 2 units of fresh frozen plasma. Hemoglobin stable at 7.7. The shock liver is improving and the liver function tests on the decline. Abdomen is also improved and it's down to 2.1. Hemodynamically, the patient is producing urine output in the order of 40- 50 mL an hour, yet her net fluid balance has been positive for yesterday at 1.8 L. The patient is still on norepinephrine infusion at 13 g and the patient be started on diuretics to optimize her volume status and urine output. She is afebrile. She is having negative blood cultures. She is on empiric antibiotic coverage with IV Merrem. She has remained nothing by mouth and her tube feeds will be initiated today. The patient is currently on a normal saline at 75 mL an hour. We'll going to cut on IV fluids to maintenance. Family is at the bedside. On 03/11/2089 seeing this patient in follow-up in the intensive care unit. The patient was taken off sedation yesterday and she did not have any immediate neurologic recovery. This was a concern. The pupils are quite wide and sluggishly reactive to light and the order of 7-8 mm in size. There was bilateral and symmetrical. Based on this, a CAT scan of the brain was done and it did not show any acute abnormalities or bleeds. The patient was kept off sedation throughout the day yesterday and this morning she is off sedation. She opens her eyes upon being called her name. She is not following commands still. She is laying down comfortably she is very synchronous with the mechanical ventilator. She is still intubated on a respirator, and she is an assist-control mode of ventilation with a rate of 16, tidal volume of 400, FiO2 is down to 40% and a PEEP of 5. The blood gases from today showed a pH of 7.45 with a pCO2 of 42 and pO2 of 108. Chest x-rays consistent with CHF with pulmonary vessel congestion and bilateral pleural effusions. The patient hemodynamically is still requiring pressors. The patient is currently on norepinephrine infusion running at 5 g which is considerably improved compared to a few days back. Nevertheless, earlier this morning, the patient went into atrial fibrillation rapid ventricular response. Based on this, the patient was started on Cardizem drip and currently Cardizem is running at 5 mg an hour rate is under better control. The patient is producing urine output in the order of 40-50 mL an hour. The net fluid balance is still positive of 1.8 L despite her receiving Lasix 40 mg IV every 12 hours. The right IJ triple-lumen catheter in place and the hematoma is stable and unchanged. The right femoral triple-lumen catheter and Artline catheter both in place without evidence of any hematoma and in hemoglobin is stable above 7. The patient is afebrile. The patient on IV Merrem. The patient was demonstrating improvement in her liver function tests and a son yesterday blood tests. The family is currently making decision about possibility of her going into comfort care measures based on her ongoing medical problems and comorbidities. The told us that the patient did not want to be intubated in the first place and long-term mechanical ventilation is something that they would not accept as part of her medical care. Further discussion will be done in I'm meeting with the family at around 10:00 this morning to establish goals of treatment. On 03/12/2018, patient is in the intensive care unit. The patient remains off sedation. No significant improvement neurologically and the patient only opens up her eyes when called her name yet she does not follow any commands nor she does any movement activity and had upper and lower extremity. She does not withdrawing to painful stimulation. The patient is on a mechanical ventilator. This morning she had assist-control mode at the rate of 16, tidal volume of 400 with a PEEP of 5 and FiO2 of 40%. The morning blood gases showed a pH of 7.45 with a pCO2 of 33 and pO2 of 66. Chest x-ray still stable and is consistent with CHF and bilateral pleural effusion. She is producing adequate amount of urine output as the patient is being diuresis with IV Lasix 60 mg IV every 8 hours. The neck fluid balance over the past 24 hours has been +602 mL. The patient is afebrile. The patient is hemodynamically stable and the process of been completely discontinued. Overnight she went into atrial fibrillation with rapid ventricular response and she had deeply placed on Cardizem drip and currently she is on 10 mg an hour of Cardizem drip and her rhythm is back to sinus. She has been tolerating his tube feeds. On her blood work, her hemoglobin has dropped down to 6.3 and the patient will be receiving a unit of packed RBC. Also, I noted some laying gap metabolic acidosis with a drop in his serum bicarb down to 15. Creatinine is improving is down to 1.8. We are going to give the patient units of packed RBC and 2 A of bicarb and repeat the CBC and electrolytes. No sedation for now as the patient is being monitored in terms of her neuro status. The LFTs are improving. Objective - Vital Signs Vital signs: Vital Signs Temp 98.0 F 03/12/18 08:00 Pulse 77 03/12/18 08:00 Resp 16 03/12/18 08:00 BP 124/69 03/10/18 14:01 Pulse Ox 97 03/12/18 08:00 Intake & Output 03/11/18 03/12/18 03/12/18 18:59 06:59 18:59 Intake Total 619.023 623 106 Output Total 385 264 80 Balance 234.023 359 26 Weight 93 kg Intake: IV 516 523 86 0.9 NS pressure bag 36 33 6 Dextrose 5%-0.9% NaCl 1, 240 220 40 000 ml @ 40 mls/hr IV . Q24H [facility] Rx#:[id number] Meropenem 500 mg In 50 Sodium Chloride 0.9% 50 ml @ 100 mls/hr IVPB Q12HR [facility] Rx#:[id number] NS 240 220 40 Intake, IV Titration 93.023 50 Amount Diltiazem 50 mg In Sodium 50 50 Chloride 0.9% 40 ml @ 10 MG/HR 10 mls/hr IV .Q5H [facility] Rx#:[id number] Norepinephrine 16 mg In 43.023 Sodium Chloride 0.9% 250 ml @ Titrate IV .Q0M [facility] Rx#:[id number] Tube Feeding 10 50 20 Output: Urine 385 264 80 Other: Voiding Method Indwelling Catheter Indwelling Catheter ABP, PAP, CO, CI - Last Documented Arterial Blood Pressure 109/55 - Exam Patient is currently off sedation the patient opens her eyes upon running her name otherwise she is sleeping and remains sedated without movement in upper and lower extremities. She is still not withdrawing to painful stimulation. She is Comfortable. Intubated on a mechanical ventilator. Orogastric and orotracheal tube are both in place. Head is atraumatic normocephalic. Neck examination shows positive JVDs on a 30 bed elevation. No goiter or neck masses. Mucous membranes are dry. The patient has some conjunctival icterus and pallor. The patient has a right IJ triple-lumen catheter. The cath is not being utilized. There is a soft hematoma in the right neck area extending to the anterior neck and upper chest which has not progressed and remains unchanged. Lungs sounds are diminished bilaterally along with bibasilar crackles. Heart sounds are tachycardic and there are distant. Positive S1-S2 and there is a faint murmur heard at a 2/6 throughout the precordium. Abdominal exam revealed normal bowel sounds. The abdomen was soft, non-tender, and without masses, organomegaly, or appreciable enlargement of the abdominal aorta. Examination of the extremities marked diminished pulses in lower extremities bilaterally also diminished pulses in the upper extremities. Extremities are warm today and there is improved pulses in the lower extremities and upper extremities bilaterally. There is some cyanosis. No clubbing. There is still significant amount of edema in the upper and lower extremities bilaterally. There is also hematoma in the right neck and anterior chest area which is soft and has not progressed at all. Examination of the skin revealed no evidence of significant rashes, suspicious appearing nevi or other concerning lesions. Neurologic the patient was encephalopathic and currently she is sedated with Diprivan and calm and comfortable. Psychiatric evaluation cannot be done. - Labs CBC & Chem 7: 03/12/18 06:00 03/12/18 06:00 Labs: Abnormal Lab Results - Last 24 Hours (Table) 03/11/18 03/11/18 03/11/18 Range/Units 04:10 09:48 12:53 RBC (3.80-5.40) m/uL Hgb (11.4-16.0) gm/dL Hct (34.0-46.0) % MCHC (31.0-37.0) g/dL RDW (11.5-15.5) % Plt Count (150-450) k/uL Lymphocytes # (1.0-4.8) k/uL ABG pH (7.35-7.45) ABG pCO2 (35-45) mmHg ABG pO2 (83-108) mmHg ABG Total CO2 (19-24) mmol/L ABG O2 Saturation (94-97) % Potassium 5.4 H (3.5-5.1) mmol/L Chloride (98-107) mmol/L Carbon Dioxide (22-30) mmol/L BUN 65 H (7-17) mg/dL Creatinine 1.87 H (0.52-1.04) mg/dL Glucose 104 H (74-99) mg/dL POC Glucose (mg/dL) 115 H 115 H (75-99) mg/dL Calcium (8.4-10.2) mg/dL Phosphorus 5.1 H (2.5-4.5) mg/dL Magnesium (1.6-2.3) mg/dL Total Bilirubin 6.2 H (0.2-1.3) mg/dL AST 1417 H (14-36) U/L ALT 2526 H (9-52) U/L Alkaline Phosphatase 171 H (38-126) U/L Ammonia (<30) umol/L Total Protein 5.3 L (6.3-8.2) g/dL Albumin 2.7 L (3.5-5.0) g/dL 03/11/18 03/11/18 03/11/18 Range/Units 16:26 20:16 21:29 RBC (3.80-5.40) m/uL Hgb (11.4-16.0) gm/dL Hct (34.0-46.0) % MCHC (31.0-37.0) g/dL RDW (11.5-15.5) % Plt Count (150-450) k/uL Lymphocytes # (1.0-4.8) k/uL ABG pH (7.35-7.45) ABG pCO2 (35-45) mmHg ABG pO2 (83-108) mmHg ABG Total CO2 (19-24) mmol/L ABG O2 Saturation (94-97) % Potassium (3.5-5.1) mmol/L Chloride (98-107) mmol/L Carbon Dioxide (22-30) mmol/L BUN (7-17) mg/dL Creatinine (0.52-1.04) mg/dL Glucose (74-99) mg/dL POC Glucose (mg/dL) 109 H 134 H (75-99) mg/dL Calcium (8.4-10.2) mg/dL Phosphorus (2.5-4.5) mg/dL Magnesium (1.6-2.3) mg/dL Total Bilirubin (0.2-1.3) mg/dL AST (14-36) U/L ALT (9-52) U/L Alkaline Phosphatase (38-126) U/L Ammonia 78 H (<30) umol/L Total Protein (6.3-8.2) g/dL Albumin (3.5-5.0) g/dL 03/12/18 03/12/18 03/12/18 Range/Units 01:05 04:39 05:55 RBC (3.80-5.40) m/uL Hgb (11.4-16.0) gm/dL Hct (34.0-46.0) % MCHC (31.0-37.0) g/dL RDW (11.5-15.5) % Plt Count (150-450) k/uL Lymphocytes # (1.0-4.8) k/uL ABG pH 7.46 H (7.35-7.45) ABG pCO2 33 L (35-45) mmHg ABG pO2 67 L (83-108) mmHg ABG Total CO2 25 H (19-24) mmol/L ABG O2 Saturation 92.9 L (94-97) % Potassium (3.5-5.1) mmol/L Chloride (98-107) mmol/L Carbon Dioxide (22-30) mmol/L BUN (7-17) mg/dL Creatinine (0.52-1.04) mg/dL Glucose (74-99) mg/dL POC Glucose (mg/dL) 117 H 125 H (75-99) mg/dL Calcium (8.4-10.2) mg/dL Phosphorus (2.5-4.5) mg/dL Magnesium (1.6-2.3) mg/dL Total Bilirubin (0.2-1.3) mg/dL AST (14-36) U/L ALT (9-52) U/L Alkaline Phosphatase (38-126) U/L Ammonia (<30) umol/L Total Protein (6.3-8.2) g/dL Albumin (3.5-5.0) g/dL 03/12/18 03/12/18 Range/Units 06:00 06:00 RBC 2.24 L (3.80-5.40) m/uL Hgb 6.3 L* (11.4-16.0) gm/dL Hct 20.9 L (34.0-46.0) % MCHC 30.0 L (31.0-37.0) g/dL RDW 16.2 H (11.5-15.5) % Plt Count 89 L (150-450) k/uL Lymphocytes # 0.8 L (1.0-4.8) k/uL ABG pH (7.35-7.45) ABG pCO2 (35-45) mmHg ABG pO2 (83-108) mmHg ABG Total CO2 (19-24) mmol/L ABG O2 Saturation (94-97) % Potassium (3.5-5.1) mmol/L Chloride 120 H (98-107) mmol/L Carbon Dioxide 15 L (22-30) mmol/L BUN 54 H (7-17) mg/dL Creatinine 1.57 H (0.52-1.04) mg/dL Glucose (74-99) mg/dL POC Glucose (mg/dL) (75-99) mg/dL Calcium 5.9 L* (8.4-10.2) mg/dL Phosphorus (2.5-4.5) mg/dL Magnesium 1.5 L (1.6-2.3) mg/dL Total Bilirubin 4.9 H (0.2-1.3) mg/dL AST 521 H (14-36) U/L ALT 1237 H (9-52) U/L Alkaline Phosphatase (38-126) U/L Ammonia (<30) umol/L Total Protein 3.5 L (6.3-8.2) g/dL Albumin 1.6 L (3.5-5.0) g/dL Microbiology - Last 24 Hours (Table) 03/06/18 08:22 Blood Culture - Preliminary Blood No Growth after 120 hours Assessment and Plan Plan: Assessment 1 cardiogenic shock with multisystem organ failure. Hemodynamically the patient has done better. There is improvement in her blood pressure in general the patient is currently off pressors. Is also improvement in her shock liver and acute kidney injury. Nevertheless, neurologically, the patient remains quite unresponsive despite being off sedation for a total of 48 hours. 2 CHF with systolic heart failure and ejection fraction of 20-25% based on yesterday's echocardiogram. The patient also has global severe hypokinesis, left ventricle is moderately dilated, severe mitral regurgitation, severe three- vessel regurgitation, severe pulmonary hypertension, no significant inspiratory collapse of the IVC consistent with right-sided volume overload 3 acute hypoxic respiratory failure secondary to above, chest x-ray from today showing bilateral pleural effusion and heart failure and edema. 4 acute kidney injury secondary to above, improving compared to yesterday and creatinine is down to 1.5 5 acute shock liver secondary to above, LFTs are improving 6 proximal atrial fibrillation , and the patient is currently in atrial fibrillation maintained on a Cardizem drip at 10 mg an hour 7 carotid artery disease with a previous left carotid endarterectomy 8 history of melanoma resected 9 coagulopathy post transfusion with fresh frozen plasma and the patient has a total of 10 units of fresh frozen plasma 10 altered mentation with diminished level of consciousness. Could be metabolic related to excessive sedation in addition to shock liver and acute kidney injury. As this condition is improving with a anticipate improvement in the mentation and the patient is being monitored while being off sedation. 11 acute thrombocytopenia secondary to above, rule out underlying component of DIC 12 acute leukocytosis secondary to above. The leukocytosis is also improvement in the white cell count is down to 10.1 13 acute elevation of the lipase questionable component of pancreatitis, improving 14 history of AICD placement 15 history of ESBL producing urine tract infection back in general 2017 with E. coli 16 chronic hypoxic respiratory failure and the patient is oxygen at 2 L per minute nasal cannula Plan The patient is still being monitored here in the ICU. Unfortunately the prognosis poor. I had a lengthy discussion with the patient's family yesterday and I met with every single individual and that family including the and kids drain kids and extended family members including aunts and uncles. In summary, the decision was to extended she will for another few days and monitor her mentation and her hemodynamics and her outcome. The family is not interested in long-term support and I answered all their questions. We'll make it final decision on her CODE STATUS and her goals of treatment with the next 24 -48 hours depending on her condition outcome. For now, the patient is still showing some signs of improvement hemodynamically and her organ dysfunction is also improving. We'll monitor mentation. There is a ongoing an active problem 9. This patient has not shown any significant neurologic recovery while being off sedation. This could be potentially metabolic encephalopathy that could improve. We'll give her a 2 units of packed RBCs. We'll given 2 A of bicarb. We'll switch her to a Lasix drip. Wean off Cardizem drip today. Keep in ICU. Continue tube feeds. We'll make further recommendations based on her progress. This evaluation was done and 35 minutes.
[2018-03-12] MEDS: ALLOPURINOL 100 MG TAB PO SCH (09:20)
[2018-03-12] MEDS: MAGNESIUM SULFATE-D5W PMX 1 GM in DEXTROSE/WATER 1 100ML.BAG IVPB SCH ×2 (09:21→10:15)
[2018-03-12] MEDS: PANTOPRAZOLE 40 MG/10 ML VIAL IVP SCH (09:21)
[2018-03-12] MEDS: CHLORHEXIDINE GLUCONATE 15 ML CUP MUCOUS MEM SCH ×2 (09:21→21:29)
[2018-03-12] MEDS: SENNOSIDES-DOCUSATE SODIUM 1 EACH TAB PO SCH ×2 (09:21→21:29)
[2018-03-12] MEDS: guaiFENesin 600 MG TABLET.ER PO SCH ×2 (09:22→21:30)
[2018-03-12] MEDS: SEVELAMER 800 MG TAB PO SCH ×3 (09:22→17:09)
[2018-03-12] MEDS: MEROPENEM 500 MG in SODIUM CHLORIDE 0.9% 50 ML IVPB SCH ×2 (09:41→21:32)
[2018-03-12 09:51] LABS: Glucose,Whole Blood 168 mg/dL (75-99)
[2018-03-12] MEDS ORDERED: FUROSEMIDE 250 MG in SODIUM CHLORIDE 0.9% 225 ML IVP SCH (11:00)
[2018-03-12 11:50] LABS: Glucose,Whole Blood 197 mg/dL (75-99)
--- NOTE | 2018-03-12 12:31 | P.PN ---
Subjective Progress Note Date: 03/12/18 This is a 72 year-old female. Her primary care physician is Dr. Basil Crowell. Sees Dr. Real Jackson at [facility] [place] She has a past medical history of hypertension, gastroesophageal reflux disease, carotid stenosis and non ischemic cardiomyopathy status post AICD with reported EF 30 -35 %, gout, anxiety and depression. She was recently hospitalized on June 08 following a fall secondary to dizziness with orthostatic changes ruled out. She ended up having a left radial fracture and left pelvic fracture. She was seen by orthopedics and they recommended splint and sling to the left arm and toe-touch weightbearing on the left lower extremity. Patient was again admitted on June 20 with confusion likely secondary to tramadol. She did present with history of passing out. AICD interrogation was done during the admission and found to have normal service function. Patient was again seen in 2017 with altered mental status sec to benzodiazepine which was held. Last seen on January for acute chest pain but stress test was negative Patisammn was admitted for bilateral pneumonia with CHF exacerbation. Patient comes in again with acute shortness of breath associated with cough with sputum production. Patient states she's been noticing reddish's phlegm production for the past 2 weeks. She states she was never well was discharged from the hospital. Patient had a follow-up appointment with Dr. Schaffer tomorrow but hasn't seen a primary care physician for the past 2 weeks. Patient received breathing treatments via EMS before coming to the hospital. There was slight improvement in symptoms on arrival to the ER but patient was found to be dyspneic in the ER. Vitas obtain suggested temp of 98.5, pulse rate 104, blood pressure 133/86, saturating well on 97% on 2 L which is patient' s baseline. Chest x-ray obtained suggested cardiomegaly and COPD but no consolidation with concern for pneumonia. Labs ordered suggestive hemoglobin 10.3 which is stable from the previous admissions. Her INR was 2.5 but patient is not on Coumadin. Also elevated was d-dimer 4.28. Creatinine is above the baseline of 1.2. LFTs were elevated with AST 1448, AST 1090, alkaline phosphatase 170. ProBNP elevated to 18,300. Troponin times 10.030 albumin 3.3. Based on patient's findings and symptoms there is a concern for pulmonary embolism though CTA cannot be ordered due to increased creatinine. V/Q scan ordered. Due to the hepatic congestion an acute elevation in liver enzymes liver ultrasound ordered to rule out cholecystitis/choledocholithiasis. Patient also complaining of significant shoulder pain and limited to the joint mobility likely secondary to arthritis. Pro-calcitonin ordered. Acute hepatitis panel ordered 03/07: Shoulder x-ray was negative. VQ scan shows multiple matching defects corresponds to intermediate probability of pulmonary embolism. Pulmonary is on consult. Patient has been seen by cardiology for acute exacerbation of chronic systolic heart failure with recommendations to continue IV Lasix. We did decrease Lasix to 40 mg IV daily. Echocardiogram report is pending. Patient is complaining of cough that is nonproductive and denies any blood in her cough. Robitussin added. Her shortness of breath is improved. Her pain in her shoulder is okay at this time. She does complain of nausea. Abdominal ultrasound showed probable tiny gallstones. Mild gallbladder wall thickening consistent with acute on chronic cholecystitis. No dilated ducts. Dr. Kaye plans no intervention at this time await GI evaluation. Patient is on a full liquid diet and fluid restriction of 2000 ML's added. 03/08: Last evening patient has not run off-colored 13 beats of V. tach and heart rate of 150-170. A Team was called and patient was in A. fib RVR. Patient was given IV magnesium and cardiology ordered Lopressor. A. fib was better controlled rate and started amiodarone bolus and protocol per Dr. Merino. Early this morning, another A Team was called for blood pressure of 56 /37 and patient was ordered for 500 mL bolus and transferred to ICU and started on vasopressors. Amiodarone drip was stopped. Patient required high-dose norepinephrine, lines were placed by Dr. Lauri Daley in, patient became lethargic and encephalopathy. Case discussed with the patient's and he wanted the patient intubated and patient was intubated and on mechanical ventilation. She was noted to have leukocytosis, anemia and thrombocytopenia, INR is greater than 10, liver function test are significantly elevated as well as CK and renal function. Amylase this morning was 114 and lipase 1053. 03/09: Patient remains intubated and on mechanical ventilation. She has been afebrile. She remains on norepinephrine. She is status post 2 unit packed RBCs as well as fresh frozen plasma. White count is down to 14.6, hemoglobin is 8.2 and platelet count is 94. Dr. Kaye has signed off the case as there is no evidence of abdominal sepsis. 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 Liver function tests are slightly improved from yesterday. INR this morning is 5.3. Patient is status post vitamin K yesterday and repeat today. 03/10: Patient had dilated unresponsive pupils this morning. CT of the brain showed stable exam and consider MRI. Patient remains intubated and on mechanical ventilation. Discussed with patient's family and they do not want her transferred to [facility]. Discussed also the patient's prognosis is poor and she is not heading in the right direction for improvement. She is on lower sedation. She continues on norepinephrine. She has been suctioned of blood from the oral cavity. Metoprolol was resumed yesterday for heart rate but her blood pressure did decrease somewhat. INR today is at 3.4, hemoglobin 7.7 and platelet count 80. She is receiving fresh frozen plasma today. Urine output is at 40 mL per hour. Temperature 90.4 axillary. 03/11: Patient is currently off sedation. There is a small amount of reaction to stimuli. She is on Cardizem drip for A. fib with RVR started last evening. Patient continues on low dose of norepinephrine. She is on meropenem. She remains intubated and on mechanical ventilation. Urine output has been running 40-50 mL/h. She has had continued mild improvement of her liver function tests. Family is considering comfort care. There is a family meeting scheduled with Dr. Lang. 03/12: Patient is currently off sedation. There is a small amount of reaction to stimuli. She is on Cardizem drip for A. fib rate is in the 70s at this time. Patient is no longer on vasopressors. She remains intubated and on mechanical ventilation urine output has been running 40-50 ML per hour. There has been a mild improvement to liver functions. Family met with Dr. Lang yesterday. Plan is to continue with current treatment until Wednesday, then a determination will be made to transition to comfort care. Objective - Vital Signs Vital signs: Vital Signs Temp 97.8 F 03/12/18 12:00 Pulse 75 10/06/18 12:00 Resp 20 03/12/18 12:00 BP 111/55 03/12/18 12:00 Pulse Ox 97 03/12/18 08:00 Intake & Output 03/11/18 03/12/18 03/12/18 18:59 06:59 18:59 Intake Total 619.023 623 156 Output Total 385 264 80 Balance 234.023 359 76 Weight 93 kg Intake: IV 516 523 86 0.9 NS pressure bag 36 33 6 Dextrose 5%-0.9% NaCl 1, 240 220 40 000 ml @ 40 mls/hr IV . Q24H [facility] Rx#:[id number] Meropenem 500 mg In 50 Sodium Chloride 0.9% 50 ml @ 100 mls/hr IVPB Q12HR [facility] Rx#:[id number] NS 240 220 40 Intake, IV Titration 93.023 50 50 Amount Diltiazem 50 mg In Sodium 50 50 50 Chloride 0.9% 40 ml @ 10 MG/HR 10 mls/hr IV .Q5H [facility] Rx#:[id number] Norepinephrine 16 mg In 43.023 Sodium Chloride 0.9% 250 ml @ Titrate IV .Q0M [facility] Rx#:[id number] Tube Feeding 10 50 20 Blood Product 0 Rc As-1 Unit 0 [id number] Output: Urine 385 264 80 Other: Voiding Method Indwelling Catheter Indwelling Catheter ABP, PAP, CO, CI - Last Documented Arterial Blood Pressure 109/55 - Constitutional General appearance: Present: no acute distress - EENT Eyes: Present: anicteric sclerae, PERRLA, normal appearance ENT: Present: hearing grossly normal (Intubated on mechanical ventilation, ET tube and orogastric tube in place.) - Neck Neck: Present: normal ROM. Absent: lymphadenopathy, rigidity, stridor, thyromegaly - Respiratory Details: Decreased bilaterally Respiratory: negative: rhonchi, wheezing - Cardiovascular Rhythm: irregularly irregular Heart sounds: normal: S1, S2 Abnormal Heart Sounds: Absent: systolic murmur, diastolic murmur, rub, S3 Gallop , S4 Gallop, click, other - Gastrointestinal General gastrointestinal: Present: normal bowel sounds, soft - Integumentary Integumentary: Absent: rash - Neurologic Neurologic Comment(s): Dilated unresponsive pupils - Musculoskeletal Musculoskeletal Comment(s): Unable to follow verbal commands - Psychiatric Psychiatric Comment(s): Intubated and sedated - Labs CBC & Chem 7: 03/12/18 06:00 03/12/18 06:00 Labs: Abnormal Lab Results - Last 24 Hours (Table) 03/11/18 03/11/18 03/11/18 Range/Units 04:10 12:53 16:26 RBC (3.80-5.40) m/uL Hgb (11.4-16.0) gm/dL Hct (34.0-46.0) % MCHC (31.0-37.0) g/dL RDW (11.5-15.5) % Plt Count (150-450) k/uL Lymphocytes # (1.0-4.8) k/uL ABG pH (7.35-7.45) ABG pCO2 (35-45) mmHg ABG pO2 (83-108) mmHg ABG Total CO2 (19-24) mmol/L ABG O2 Saturation (94-97) % Potassium 5.4 H (3.5-5.1) mmol/L Chloride (98-107) mmol/L Carbon Dioxide (22-30) mmol/L BUN 65 H (7-17) mg/dL Creatinine 1.87 H (0.52-1.04) mg/dL Glucose 104 H (74-99) mg/dL POC Glucose (mg/dL) 115 H 109 H (75-99) mg/dL Calcium (8.4-10.2) mg/dL Phosphorus 5.1 H (2.5-4.5) mg/dL Magnesium (1.6-2.3) mg/dL Total Bilirubin 6.2 H (0.2-1.3) mg/dL AST 1417 H (14-36) U/L ALT 2526 H (9-52) U/L Alkaline Phosphatase 171 H (38-126) U/L Ammonia (<30) umol/L Total Protein 5.3 L (6.3-8.2) g/dL Albumin 2.7 L (3.5-5.0) g/dL Crossmatch 03/11/18 03/11/18 03/12/18 Range/Units 20:16 21:29 01:05 RBC (3.80-5.40) m/uL Hgb (11.4-16.0) gm/dL Hct (34.0-46.0) % MCHC (31.0-37.0) g/dL RDW (11.5-15.5) % Plt Count (150-450) k/uL Lymphocytes # (1.0-4.8) k/uL ABG pH (7.35-7.45) ABG pCO2 (35-45) mmHg ABG pO2 (83-108) mmHg ABG Total CO2 (19-24) mmol/L ABG O2 Saturation (94-97) % Potassium (3.5-5.1) mmol/L Chloride (98-107) mmol/L Carbon Dioxide (22-30) mmol/L BUN (7-17) mg/dL Creatinine (0.52-1.04) mg/dL Glucose (74-99) mg/dL POC Glucose (mg/dL) 134 H 117 H (75-99) mg/dL Calcium (8.4-10.2) mg/dL Phosphorus (2.5-4.5) mg/dL Magnesium (1.6-2.3) mg/dL Total Bilirubin (0.2-1.3) mg/dL AST (14-36) U/L ALT (9-52) U/L Alkaline Phosphatase (38-126) U/L Ammonia 78 H (<30) umol/L Total Protein (6.3-8.2) g/dL Albumin (3.5-5.0) g/dL Crossmatch 03/12/18 03/12/18 03/12/18 Range/Units 04:39 05:55 06:00 RBC 2.24 L (3.80-5.40) m/uL Hgb 6.3 L* (11.4-16.0) gm/dL Hct 20.9 L (34.0-46.0) % MCHC 30.0 L (31.0-37.0) g/dL RDW 16.2 H (11.5-15.5) % Plt Count 89 L (150-450) k/uL Lymphocytes # 0.8 L (1.0-4.8) k/uL ABG pH 7.46 H (7.35-7.45) ABG pCO2 33 L (35-45) mmHg ABG pO2 67 L (83-108) mmHg ABG Total CO2 25 H (19-24) mmol/L ABG O2 Saturation 92.9 L (94-97) % Potassium (3.5-5.1) mmol/L Chloride (98-107) mmol/L Carbon Dioxide (22-30) mmol/L BUN (7-17) mg/dL Creatinine (0.52-1.04) mg/dL Glucose (74-99) mg/dL POC Glucose (mg/dL) 125 H (75-99) mg/dL Calcium (8.4-10.2) mg/dL Phosphorus (2.5-4.5) mg/dL Magnesium (1.6-2.3) mg/dL Total Bilirubin (0.2-1.3) mg/dL AST (14-36) U/L ALT (9-52) U/L Alkaline Phosphatase (38-126) U/L Ammonia (<30) umol/L Total Protein (6.3-8.2) g/dL Albumin (3.5-5.0) g/dL Crossmatch 03/12/18 03/12/18 03/12/18 Range/Units 06:00 09:30 09:49 RBC (3.80-5.40) m/uL Hgb (11.4-16.0) gm/dL Hct (34.0-46.0) % MCHC (31.0-37.0) g/dL RDW (11.5-15.5) % Plt Count (150-450) k/uL Lymphocytes # (1.0-4.8) k/uL ABG pH (7.35-7.45) ABG pCO2 (35-45) mmHg ABG pO2 (83-108) mmHg ABG Total CO2 (19-24) mmol/L ABG O2 Saturation (94-97) % Potassium (3.5-5.1) mmol/L Chloride 120 H (98-107) mmol/L Carbon Dioxide 15 L (22-30) mmol/L BUN 54 H (7-17) mg/dL Creatinine 1.57 H (0.52-1.04) mg/dL Glucose (74-99) mg/dL POC Glucose (mg/dL) 168 H (75-99) mg/dL Calcium 5.9 L* (8.4-10.2) mg/dL Phosphorus (2.5-4.5) mg/dL Magnesium 1.5 L (1.6-2.3) mg/dL Total Bilirubin 4.9 H (0.2-1.3) mg/dL AST 521 H (14-36) U/L ALT 1237 H (9-52) U/L Alkaline Phosphatase (38-126) U/L Ammonia (<30) umol/L Total Protein 3.5 L (6.3-8.2) g/dL Albumin 1.6 L (3.5-5.0) g/dL Crossmatch See Detail 03/12/18 Range/Units 11:48 RBC (3.80-5.40) m/uL Hgb (11.4-16.0) gm/dL Hct (34.0-46.0) % MCHC (31.0-37.0) g/dL RDW (11.5-15.5) % Plt Count (150-450) k/uL Lymphocytes # (1.0-4.8) k/uL ABG pH (7.35-7.45) ABG pCO2 (35-45) mmHg ABG pO2 (83-108) mmHg ABG Total CO2 (19-24) mmol/L ABG O2 Saturation (94-97) % Potassium (3.5-5.1) mmol/L Chloride (98-107) mmol/L Carbon Dioxide (22-30) mmol/L BUN (7-17) mg/dL Creatinine (0.52-1.04) mg/dL Glucose (74-99) mg/dL POC Glucose (mg/dL) 197 H (75-99) mg/dL Calcium (8.4-10.2) mg/dL Phosphorus (2.5-4.5) mg/dL Magnesium (1.6-2.3) mg/dL Total Bilirubin (0.2-1.3) mg/dL AST (14-36) U/L ALT (9-52) U/L Alkaline Phosphatase (38-126) U/L Ammonia (<30) umol/L Total Protein (6.3-8.2) g/dL Albumin (3.5-5.0) g/dL Crossmatch Microbiology - Last 24 Hours (Table) 03/06/18 08:22 Blood Culture - Final Blood No Growth after 144 hours
[2018-03-12] MEDS: METOPROLOL TARTRATE 25 MG TAB PO SCH ×2 (12:51→21:30)
--- NOTE | 2018-03-12 13:54 | PN ---
PROGRESS NOTE Patient is seen for followup for acute kidney injury. Overnight patient's urine output had dropped. She is maintained on IV Lasix. She went into atrial fibrillation and received IV Cardizem. Heart rate is better controlled. Patient remains on the vent. FiO2 is at about 30%. On examination this morning, blood pressure was 116/50, heart rate 78 per minute. She is afebrile. EXAMINATION OF THE HEART: S1, S2. EXAMINATION OF LUNGS: Bilateral breath sounds are heard. ABDOMEN: Soft. Examination of lower extremities shows edema 1+ bilaterally. TRUCK SPOTTER exam cannot be performed. Labs show sodium 144, potassium 4.0, serum creatinine 1.57, hemoglobin 6.3 g/dL. ASSESSMENT: 1. Acute kidney injury, acute tubular necrosis, associated with hypotension, hypoperfusion and shock, currently improving. 2. Mild volume overload, maintained on Lasix, which we can continue. 3. Atrial fibrillation with rapid ventricular response, currently with improved ventricular response. 4. Sepsis. 5. Coagulopathy. Hemoglobin has dropped again. There is no active bleeding noted. PLAN: Continue to diurese patient. Transfuse packed RBCs. MMODL / IJN: [id number] /
[2018-03-12] MEDS ORDERED: SODIUM CHLORIDE 0.9% 1,000 ML IV SCH (15:30)
[2018-03-12 16:24] LABS: INR 3.5 (<1.2); Prothrombin Time 31.3 sec (9.0-12.0)
[2018-03-12 18:32] LABS: Glucose,Whole Blood 160 mg/dL (75-99)
[2018-03-12 18:43] LABS: Anisocytosis Slight; HCT 27.4 % (34.0-46.0); Hypochromasia Slight; MCH 30.5 pg (25.0-35.0); MCHC 33.9 g/dL (31.0-37.0); MCV 89.8 fL (80.0-100.0); Mean Platelet Volume 9.7; Platelet Count 100 k/uL (150-450); Poikilocytosis Slight; RBC 3.05 m/uL (3.80-5.40); RDW 16.5 % (11.5-15.5)
--- NOTE | 2018-03-12 18:45 | PN ---
PROGRESS NOTE Aga is a 72-year-old lady who is admitted to hospital with congestive heart failure, subsequently developed hypotension and multiorgan failure. Last night she had an episode of atrial fibrillation with rapid ventricular rate, converted back to sinus rhythm with intravenous Cardizem. This morning she is still on Cardizem which I am going to stop and continue the beta richmond that she was on. Metabolically, she is improving. Her liver enzymes have improved. She still is anemic and is requiring blood transfusion. On exam, heart rate is 70 beats per minute. Blood pressure is 111/57, respiratory rate is 18. Chest exam reveals diminished air entry bilaterally. Heart exam reveals first and second heart sounds. No gallop. Has a systolic murmur at the left lower sternal border. Abdomen is soft. Exam of the extremities did not reveal any edema. Peripheral pulses are felt. [employer] exam did not reveal focal neurological deficits. LABS: Show that the hemoglobin is 6.3. Potassium is 4, creatinine is 1.5. ASSESSMENT: 1. Acute exacerbation of chronic systolic heart failure. 2. Multi organ failure. 3. Paroxysmal atrial fibrillation. PLAN: We will continue with the current supportive care. Prognosis guarded. MMODL / IJN: [id number] /
[2018-03-12 18:47] LABS: HGB 9.3 gm/dL (11.4-16.0)
[2018-03-12 18:56] LABS: Lymphocytes # (M) 0.58 k/uL (1.0-4.8); Monocytes # (M) 1.15 k/uL (0-1.0); Myelocytes # (M) 0.12 k/uL (0); Myelocytes % 1 %; Neutrophils # (M) 9.78 k/uL (1.3-7.7); Neutrophils % (M) 85 %; Nucleated Red Blood Cells 7 /100 WBC (0-0); Polychromasia Present; Total Cells Counted 200; WBC 11.5 k/uL (3.8-10.6)
[2018-03-12 19:11] LABS: Calcium 8.6 mg/dL (8.4-10.2); Potassium 5.6 mmol/L (3.5-5.1)
[2018-03-12] MEDS: LACTULOSE 20 GM/30 ML CUP PO SCH ×2 (19:30→22:05)
[2018-03-12 20:28] LABS: Glucose,Whole Blood 157 mg/dL (75-99)
[2018-03-13] MEDS: IPRATROPIUM-ALBUTEROL 3 ML NEB INHALATION SCH ×5 (00:21→16:18)
[2018-03-13 00:22] LABS: Glucose,Whole Blood 153 mg/dL (75-99)
[2018-03-13] MEDS: INSULIN ASPART 100 UNIT/ML 1 ML 10 ML VIAL SQ SCH ×4 (01:06→12:55)
[2018-03-13 04:09] LABS: Glucose,Whole Blood 148 mg/dL (75-99)
[2018-03-13] MEDS ORDERED: DILTIAZEM DRIP BOLUS FROM BAG 1 MG SOLN IV ONE (05:18)
[2018-03-13] MEDS: DILTIAZEM 50 MG in SODIUM CHLORIDE 0.9% 40 ML IV SCH ×2 (05:19→11:58)
[2018-03-13 05:45] LABS: ABG Base Excess 8.4 mmol/L; ABG HCO3 31 mmol/L (21-25); ABG Oxygen Saturation 94.4 % (94-97); ABG PCO2 39 mmHg (35-45); ABG PH 7.51 (7.35-7.45); ABG PO2 70 mmHg (83-108); ABG TCO2 33 mmol/L (19-24)
--- NOTE | 2018-03-13 06:24 | XR ---
EXAMINATION TYPE: XR chest 1V DATE OF EXAM: 03/13/2018 HISTORY: shortness of breath. REFERENCE: Previous study dated 03/12/2018. FINDINGS: The patient's NG tube, ET tube and left-sided pacing device remain in place, unchanged in a ppearance. There is a right internal jugular catheter in place. Its tip is in the axillary vein. The heart is enlarged. There is bibasilar airspace disease. There is mild vascular congestion. There are bilateral effusions. IMPRESSION: NO SIGNIFICANT INTERVAL CHANGE IN THE APPEARANCE OF THE CHEST.
[2018-03-13 06:32] LABS: Anisocytosis Slight; Basophils % (A) 0 %; Eosinophils # (A) 0.1 k/uL (0-0.7); Eosinophils % (A) 1 %; HCT 28.7 % (34.0-46.0); HGB 9.1 gm/dL (11.4-16.0); Hypochromasia Moderate; Lymphocytes # (A) 0.8 k/uL (1.0-4.8); Lymphocytes % (A) 6 %; MCH 29.3 pg (25.0-35.0); MCHC 31.9 g/dL (31.0-37.0); Mean Platelet Volume 10.1; Monocytes # (A) 1.1 k/uL (0-1.0); Monocytes % (A) 8 %; Neutrophils # (A) 11.6 k/uL (1.3-7.7); Neutrophils % (A) 84 %; Platelet Count 121 k/uL (150-450); Poikilocytosis Slight; RBC 3.11 m/uL (3.80-5.40); RDW 16.4 % (11.5-15.5); WBC 13.9 k/uL (3.8-10.6)
[2018-03-13 06:43] LABS: Albumin 2.6 g/dL (3.5-5.0); Calcium 8.6 mg/dL (8.4-10.2); Magnesium 2.9 mg/dL (1.6-2.3); Total Bilirubin 8.1 mg/dL (0.2-1.3); Total Protein 5.3 g/dL (6.3-8.2)
[2018-03-13 06:52] LABS: INR 3.5 (<1.2); Partial Thromboplastin Time 29.7 sec (22.0-30.0); Prothrombin Time 31.4 sec (9.0-12.0)
[2018-03-13 08:00] LABS: Glucose,Whole Blood 153 mg/dL (75-99)
[2018-03-13 08:33] VITALS: TEMP 97.8
[2018-03-13] MEDS: CHLORHEXIDINE GLUCONATE 15 ML CUP MUCOUS MEM SCH (08:55)
[2018-03-13] MEDS ORDERED: RIFAXIMIN 550 MG TABLET PO SCH (09:00)
[2018-03-13 09:22] VITALS: BP 104/56
[2018-03-13] MEDS: LACTULOSE 20 GM/30 ML CUP PO SCH ×3 (09:31→12:55)
[2018-03-13] MEDS: SEVELAMER 800 MG TAB PO SCH ×2 (09:54→12:55)
[2018-03-13] MEDS: MEROPENEM 500 MG in SODIUM CHLORIDE 0.9% 50 ML IVPB SCH (09:55)
[2018-03-13] MEDS: ALLOPURINOL 100 MG TAB PO SCH (09:55)
[2018-03-13] MEDS: METOPROLOL TARTRATE 25 MG TAB PO SCH (09:57)
[2018-03-13] MEDS: PANTOPRAZOLE 40 MG/10 ML VIAL IVP SCH (09:57)
[2018-03-13] MEDS: SENNOSIDES-DOCUSATE SODIUM 1 EACH TAB PO SCH (09:59)
--- NOTE | 2018-03-13 10:58 | P.PN ---
Subjective Progress Note Date: 03/13/18 This is 72-year-old white female patient of Dr. Crowell, who presented to the emergency department when 03/06/2018 were evaluation of shortness of breath , cough with yellow sputum production. Patient denied any fever or chills, denied any chest pain. Past medical history is positive for hypertension, ischemic cardiomyopathy status post AICD placement with EF of 30-35%, atrial fibrillation, congestive heart failure, anxiety, depression, carotid stenosis, GERD, and previous episodes of pneumonia. Patient was recently hospitalized in February, for bilateral lower lobe pneumonia, in addition to a CHF exacerbation. She did require admission to the intensive care unit, she was treated with accommodation of Zosyn and vancomycin. She improved, was discharged home. On arrival to the emergency department patient was significantly dyspneic, she was given breathing treatments. Reports difficulty breathing with exertion, and some orthopnea. She was also complaining of right shoulder pain, denies any falls or trauma. She reports dry cough, no peripheral swelling. Significant weight gain. X-ray was completed in the emergency department and showed cardiomegaly and COPD. EKG showed normal sinus rhythm without acute ST/T-wave abnormalities. Lab work was done, and was negative for any evidence of leukocytosis, WBC is 8.9, hemoglobin is 10.3, INR was 2.5, d-dimer was elevated to 4.28, sodium is 135, B1 is 40, creatinine is 1.6. Patient's AST was 1448, and ALT was 1090, and with alkaline phosphatase at 170. ProBNP was 18,300, and troponins were 0.027, 0.024, 0.034. VQ scan was obtained, which showed intermediate probability of pulmonary embolism, chest x-ray on 03/06/2018 showed congestive heart failure. Patient is normally on home oxygen at 2 L per nasal cannula. She is a history of smoking, she quit smoking in 1997, prior to that smoked a pack a day for 20 years. She denies any history of COPD. She was supposed to see Dr. Lang in follow-up in the office this week. Patient was started on IV diuretics, she did receive IV Solu- Medrol, nebulized bronchodilators and empiric antibiotics.. She is diuresing. On today's exam, she is feeling better, breathing easier. No wheezing, no significant coughing, chest congestion or sputum production. Remains afebrile, denies any chest pain, worsening shortness of breath. On 03/08/2018, the patient is being seen in the intensive care unit. Condition decompensated significantly overnight. The patient became progressively more hypotensive and lethargic and and around 4:30 AM a emergency calls was made to the A team and the patient was found to be severely acidotic him a essentially lactic acidosis and the lactic acid level was 12. The patient was oliguric/ anuric and producing minimal amount of urine output. Potassium level was at 6.1. Creatinine was up to 3.4. There had been further increase in the liver function test and an ALT of 6100 and AST of 7500. Lipase was 1053. The patient was seen by general surgery and the patient was seen by gastroenterology and this is considered to be a representation of shock liver rather than acute intra-abdominal issue/acute abdomen. In the early childhood director hours, the patient was started on Pres. patient is currently on high-dose norepinephrine infusion which was as high as 40 g per KG per minute. I saw the patient in the ICU first thing in the morning. The patient was in shock. She was encephalopathic and extremely lethargic. She was cold and clammy and diminished pulses in the left lower extremity and upper extremity unless debilitated checked by Doppler. The patient was still communicating and responding only to simple commands. Nevertheless, she was quite encephalopathic and lethargic and drowsy. Mother was at the bedside. I did brief discussion with the and gave him an update on her condition. Subsequently, I had to insert a triple lumen catheter an outlying catheter for hemodynamic monitoring and ongoing hemodynamic support. I also intubated the patient states that on mechanical ventilation follow-up blood gases are still pending. Meanwhile the patient received a total of 2 L of IV fluid in the form of normal saline. Urine output still diminished. Following an outlying catheter insertion to systolic blood pressure was measured to be at 1:30. Pressors are currently being gradually weaned off. Her cardiac rhythm is sinus although she is having short runs of atrial fibrillation. She is currently off amiodarone. She has off Eliquis. She is afebrile. She is sedated for the purpose of intubation mechanical ventilation. I put the patient on assist control mode of ventilation following blood gases are still pending. Post intubation chest x-ray show that the patient's right IJ line has been directed however the right subclavian. ET tube and orogastric tube are all On 03/09/2018, I'm seeing this patient in intensive care unit for a follow-up. The patient remains intubated on a mechanical ventilator. This morning, she is still sedated with Diprivan which is running at 40 g per KG per minute. She is an assist-control mode of ventilation. The blood. This morning showed considerable degree of respiratory alkalosis and based on that the necessity vent changes was done. Note that the patient's pH was at 7.69 with a pCO2 of 22 and pO2 of 64 and based on that, the tidal volume was up to 450 and the respiratory rate will drop down to 16. She still on a 50% FiO2 with a PEEP of 5. Today's chest x-ray showing it up in the bilateral pleural effusion small pulmonary vessel congestion. ET tube is high in the trachea. The right IJ is going to the right subclavian. OG tube is in place. Note that the patient is still in cardiogenic shock although hemodynamics is improved compared to yesterday. She was resuscitated with bicarb drip. The bicarb drip was taken of this morning because of the extensive metabolic alkalosis. In any rate, the serum bicarb is up to 19 and the lactic acid is to be followed up today. The patient is currently on 13 mics of levo fed. The patient is producing urine output in the order of 100 250 mL an hour. Renal function is improving and the creatinine is down to 2.6. Liver functions is also improving and the AST and ALP are in the decline. The patient received a total of 2 units of packed RBC and 6 frozen plasma yesterday and the follow-up coagulation profile still is off overall improved. INR is at 5.3 with a PT of 48.1. The platelet counts is at 90,000. The right IJ catheter is not being utilized however it has not been pulled out due to concerns of a hematoma evolution in the right flank area and the right chest area. The hematoma today's evaluation is soft and has not extended any further. NG tube is in place. She will feeds are not being offered at this point in time due to the shock liver. The cardiac rhythm is sinus. No episodes of A. fib was noted. The patient has a triple lumen catheter in the right femoral area and the patient has a arterial line in the right groin and there is no hematoma formation in the right groin area. Pulses in lower extremities is improved compared to yesterday and overall hemodynamics is better with less amount of pressors and better organ function and perfusion on today's evaluation. All of the cultures of been negative and the patient empirically covered with a combination of Merrem and vancomycin. On 03/10/2018 the patient is being seen in follow-up in the intensive care unit. This morning, the patient remains intubated on a mechanical ventilator. Orogastric and orotracheal tube are both in place. No significant worsening in the neck hematoma and the hematoma itself is soft and is palpable. The patient remains sedated on Diprivan and she is calm and comfortable and when the process of getting a sedation holiday today. She is on mechanical ventilator on assist control mode with essentially the same vent settings include a tidal volume of 450 with a rate of 16 and FiO2 of 40% and a PEEP of 5. Her morning blood gases showed a pH of 7.44 with a pCO2 of 45 and pO2 of 79 and this was on FiO2 of 40%. The chest x-ray is showing bibasilar pulmonary infiltrates and worsening in the pulmonary vessel congestion/edema compared to yesterday. There is small bilateral pleural effusion. The lines are all unchanged. I'm still awaiting for her coagulopathy to correct prior to removing the triple- lumen catheter to in her right neck. On today's blood work, the patient's INR is at 3.4. Based on this, the patient was given additional 2 units of fresh frozen plasma. Hemoglobin stable at 7.7. The shock liver is improving and the liver function tests on the decline. Abdomen is also improved and it's down to 2.1. Hemodynamically, the patient is producing urine output in the order of 40- 50 mL an hour, yet her net fluid balance has been positive for yesterday at 1.8 L. The patient is still on norepinephrine infusion at 13 g and the patient be started on diuretics to optimize her volume status and urine output. She is afebrile. She is having negative blood cultures. She is on empiric antibiotic coverage with IV Merrem. She has remained nothing by mouth and her tube feeds will be initiated today. The patient is currently on a normal saline at 75 mL an hour. We'll going to cut on IV fluids to maintenance. Family is at the bedside. On 03/11/2089 seeing this patient in follow-up in the intensive care unit. The patient was taken off sedation yesterday and she did not have any immediate neurologic recovery. This was a concern. The pupils are quite wide and sluggishly reactive to light and the order of 7-8 mm in size. There was bilateral and symmetrical. Based on this, a CAT scan of the brain was done and it did not show any acute abnormalities or bleeds. The patient was kept off sedation throughout the day yesterday and this morning she is off sedation. She opens her eyes upon being called her name. She is not following commands still. She is laying down comfortably she is very synchronous with the mechanical ventilator. She is still intubated on a respirator, and she is an assist-control mode of ventilation with a rate of 16, tidal volume of 400, FiO2 is down to 40% and a PEEP of 5. The blood gases from today showed a pH of 7.45 with a pCO2 of 42 and pO2 of 108. Chest x-rays consistent with CHF with pulmonary vessel congestion and bilateral pleural effusions. The patient hemodynamically is still requiring pressors. The patient is currently on norepinephrine infusion running at 5 g which is considerably improved compared to a few days back. Nevertheless, earlier this morning, the patient went into atrial fibrillation rapid ventricular response. Based on this, the patient was started on Cardizem drip and currently Cardizem is running at 5 mg an hour rate is under better control. The patient is producing urine output in the order of 40-50 mL an hour. The net fluid balance is still positive of 1.8 L despite her receiving Lasix 40 mg IV every 12 hours. The right IJ triple-lumen catheter in place and the hematoma is stable and unchanged. The right femoral triple-lumen catheter and Artline catheter both in place without evidence of any hematoma and in hemoglobin is stable above 7. The patient is afebrile. The patient on IV Merrem. The patient was demonstrating improvement in her liver function tests and a son yesterday blood tests. The family is currently making decision about possibility of her going into comfort care measures based on her ongoing medical problems and comorbidities. The told us that the patient did not want to be intubated in the first place and long-term mechanical ventilation is something that they would not accept as part of her medical care. Further discussion will be done in I'm meeting with the family at around 10:00 this morning to establish goals of treatment. On 03/12/2018, patient is in the intensive care unit. The patient remains off sedation. No significant improvement neurologically and the patient only opens up her eyes when called her name yet she does not follow any commands nor she does any movement activity and had upper and lower extremity. She does not withdrawing to painful stimulation. The patient is on a mechanical ventilator. This morning she had assist-control mode at the rate of 16, tidal volume of 400 with a PEEP of 5 and FiO2 of 40%. The morning blood gases showed a pH of 7.45 with a pCO2 of 33 and pO2 of 66. Chest x-ray still stable and is consistent with CHF and bilateral pleural effusion. She is producing adequate amount of urine output as the patient is being diuresis with IV Lasix 60 mg IV every 8 hours. The neck fluid balance over the past 24 hours has been +602 mL. The patient is afebrile. The patient is hemodynamically stable and the process of been completely discontinued. Overnight she went into atrial fibrillation with rapid ventricular response and she had deeply placed on Cardizem drip and currently she is on 10 mg an hour of Cardizem drip and her rhythm is back to sinus. She has been tolerating his tube feeds. On her blood work, her hemoglobin has dropped down to 6.3 and the patient will be receiving a unit of packed RBC. Also, I noted some laying gap metabolic acidosis with a drop in his serum bicarb down to 15. Creatinine is improving is down to 1.8. We are going to give the patient units of packed RBC and 2 A of bicarb and repeat the CBC and electrolytes. No sedation for now as the patient is being monitored in terms of her neuro status. The LFTs are improving. On 03/13/2089 seeing this patient for a follow-up. Unfortunately not much of progress has been done over the past 24-48 hours. Neurologically the patient remains unresponsive. In fact she is worse compared to yesterday and she is following no commands and she is not even opening her eyes upon stimulation. She is intubated on a mechanical ventilator. Essentially on the same vent setting which includes an assist-control mode at the rate of 16 with a tidal volume of 400 and FiO2 of 40% and PEEP of 5. Urine output has dropped down to lower levels and based on that I placed the patient on a Lasix drip at 10 mg an hour. Since that she is making better urine output around 50-70 mL an hour. Nevertheless, her creatinine today is at 2.58 with a BUN of 111. Serum bicarb is up to 30. Potassium level is at 5.0. She is on and off going into atrial fibrillation with rapid ventricular response. He is on Cardizem drip running at 5 mg an hour. She is not taking any sedation. Ammonia level was quite elevated. Based on that, the patient was placed on lactulose and rifaximin mean combination and the patient is producing adequate amount of bowel movements for now. Despite all this, no improvement in the mental status. The patient's coagulation profile is still off. Her INR is still elevated at 3.5. 6 is still showing findings consistent with CHF and bilateral pleural effusion. She is on enteral feeding for nutritional support. She has triple-lumen catheter in Artline catheter in the right IJ. Unfortunately, her chances of recovery is been slim and I've discussed this with the family and I think would consider comfort care measures from this point and on knowing that her condition has not shown any significant recovery and there is obvious ongoing neurologic claimant Objective - Vital Signs Vital signs: Vital Signs Temp 97.8 F 03/13/18 08:00 Pulse 101 H 03/13/18 08:02 Resp 16 03/13/18 08:00 BP 104/56 03/12/18 14:00 Pulse Ox 97 03/13/18 08:00 Intake & Output 03/12/18 03/13/18 03/13/18 18:59 06:59 18:59 Intake Total 1416.167 836 172 Output Total 344 645 330 Balance 1072.167 191 -158 Weight 94.3 kg 94.1 kg Intake: IV 736 606 172 0.9 NS pressure bag 36 36 12 Dextrose 5%-0.9% NaCl 1, 180 000 ml @ 40 mls/hr IV . Q24H [facility] Rx#:[id number] Furosemide 250 mg In 20 40 Sodium Chloride 0.9% 225 ml @ 10 MG/HR 10 mls/hr IVP .Q24H [facility] Rx#: [id number] Magnesium Sulfate-D5w Pmx 200 1 gm In Dextrose/Water 1 100ml.bag @ 100 mls/hr IVPB Q1H [facility] Rx#: [id number] Meropenem 500 mg In 50 Sodium Chloride 0.9% 50 ml @ 100 mls/hr IVPB Q12HR [facility] Rx#:[id number] NS 300 480 160 Intake, IV Titration 60.167 0 Amount Diltiazem 50 mg In Sodium 60.167 0 Chloride 0.9% 40 ml @ 10 MG/HR 10 mls/hr IV .Q5H [facility] Rx#:[id number] Tube Feeding 310 230 Blood Product 310 Rc As-1 Unit 310 [id number] Output: Urine 344 645 330 Other: Voiding Method Indwelling Catheter Indwelling Catheter ABP, PAP, CO, CI - Last Documented Arterial Blood Pressure 121/64 - Exam Patient is intubated on a mechanical ventilator and she is unresponsive for now. Head is atraumatic normocephalic. Neck examination shows positive JVDs on a 30 bed elevation. No goiter or neck masses. Mucous membranes are dry. The patient has some conjunctival icterus and pallor. The patient has a right IJ triple-lumen catheter. The cath is not being utilized. There is a soft hematoma in the right neck area extending to the anterior neck and upper chest which has not progressed and remains unchanged. Lungs sounds are diminished bilaterally along with bibasilar crackles. Heart sounds are tachycardic and there are distant. Positive S1-S2 and there is a faint murmur heard at a 2/6 throughout the precordium. Abdominal exam revealed normal bowel sounds. The abdomen was soft, non-tender, and without masses, organomegaly, or appreciable enlargement of the abdominal aorta. Examination of the extremities marked diminished pulses in lower extremities bilaterally also diminished pulses in the upper extremities. Extremities are warm today and there is improved pulses in the lower extremities and upper extremities bilaterally. There is some cyanosis. No clubbing. There is still significant amount of edema in the upper and lower extremities bilaterally. There is also hematoma in the right neck and anterior chest area which is soft and has not progressed at all. Examination of the skin revealed no evidence of significant rashes, suspicious appearing nevi or other concerning lesions. Neurologic the patient remains unresponsive to any verbal or painful stimulation. Psychiatric evaluation cannot be done. - Labs CBC & Chem 7: 03/13/18 05:45 03/13/18 05:45 Labs: Abnormal Lab Results - Last 24 Hours (Table) 03/12/18 03/12/18 03/12/18 Range/Units 09:30 11:48 15:52 WBC (3.8-10.6) k/uL RBC (3.80-5.40) m/uL Hgb (11.4-16.0) gm/dL Hct (34.0-46.0) % RDW (11.5-15.5) % Plt Count (150-450) k/uL Neutrophils # (1.3-7.7) k/uL Neutrophils # (Manual) (1.3-7.7) k/uL Lymphocytes # (1.0-4.8) k/uL Lymphocytes # (Manual) (1.0-4.8) k/uL Monocytes # (0-1.0) k/uL Monocytes # (Manual) (0-1.0) k/uL Myelocytes # (Manual) (0) k/uL Nucleated RBCs (0-0) /100 WBC PT 31.3 H (9.0-12.0) sec INR 3.5 H (<1.2) ABG pH (7.35-7.45) ABG pO2 (83-108) mmHg ABG HCO3 (21-25) mmol/L ABG Total CO2 (19-24) mmol/L Sodium (137-145) mmol/L Potassium (3.5-5.1) mmol/L Chloride (98-107) mmol/L BUN (7-17) mg/dL Creatinine (0.52-1.04) mg/dL Glucose (74-99) mg/dL POC Glucose (mg/dL) 197 H (75-99) mg/dL Phosphorus (2.5-4.5) mg/dL Magnesium (1.6-2.3) mg/dL Total Bilirubin (0.2-1.3) mg/dL AST (14-36) U/L ALT (9-52) U/L Alkaline Phosphatase (38-126) U/L Ammonia (<30) umol/L Total Protein (6.3-8.2) g/dL Albumin (3.5-5.0) g/dL Crossmatch See Detail 03/12/18 03/12/18 03/12/18 Range/Units 17:13 18:20 18:20 WBC 11.5 H (3.8-10.6) k/uL RBC 3.05 L (3.80-5.40) m/uL Hgb 9.3 L D (11.4-16.0) gm/dL Hct 27.4 L (34.0-46.0) % RDW 16.5 H (11.5-15.5) % Plt Count 100 L (150-450) k/uL Neutrophils # (1.3-7.7) k/uL Neutrophils # (Manual) 9.78 H (1.3-7.7) k/uL Lymphocytes # (1.0-4.8) k/uL Lymphocytes # (Manual) 0.58 L (1.0-4.8) k/uL Monocytes # (0-1.0) k/uL Monocytes # (Manual) 1.15 H (0-1.0) k/uL Myelocytes # (Manual) 0.12 H (0) k/uL Nucleated RBCs 7 H (0-0) /100 WBC PT (9.0-12.0) sec INR (<1.2) ABG pH (7.35-7.45) ABG pO2 (83-108) mmHg ABG HCO3 (21-25) mmol/L ABG Total CO2 (19-24) mmol/L Sodium (137-145) mmol/L Potassium 5.6 H (3.5-5.1) mmol/L Chloride (98-107) mmol/L BUN 95 H (7-17) mg/dL Creatinine 2.58 H (0.52-1.04) mg/dL Glucose 145 H (74-99) mg/dL POC Glucose (mg/dL) 160 H (75-99) mg/dL Phosphorus (2.5-4.5) mg/dL Magnesium (1.6-2.3) mg/dL Total Bilirubin (0.2-1.3) mg/dL AST (14-36) U/L ALT (9-52) U/L Alkaline Phosphatase (38-126) U/L Ammonia (<30) umol/L Total Protein (6.3-8.2) g/dL Albumin (3.5-5.0) g/dL Crossmatch 03/12/18 03/13/18 03/13/18 Range/Units 20:26 00:20 04:07 WBC (3.8-10.6) k/uL RBC (3.80-5.40) m/uL Hgb (11.4-16.0) gm/dL Hct (34.0-46.0) % RDW (11.5-15.5) % Plt Count (150-450) k/uL Neutrophils # (1.3-7.7) k/uL Neutrophils # (Manual) (1.3-7.7) k/uL Lymphocytes # (1.0-4.8) k/uL Lymphocytes # (Manual) (1.0-4.8) k/uL Monocytes # (0-1.0) k/uL Monocytes # (Manual) (0-1.0) k/uL Myelocytes # (Manual) (0) k/uL Nucleated RBCs (0-0) /100 WBC PT (9.0-12.0) sec INR (<1.2) ABG pH (7.35-7.45) ABG pO2 (83-108) mmHg ABG HCO3 (21-25) mmol/L ABG Total CO2 (19-24) mmol/L Sodium (137-145) mmol/L Potassium (3.5-5.1) mmol/L Chloride (98-107) mmol/L BUN (7-17) mg/dL Creatinine (0.52-1.04) mg/dL Glucose (74-99) mg/dL POC Glucose (mg/dL) 157 H 153 H 148 H (75-99) mg/dL Phosphorus (2.5-4.5) mg/dL Magnesium (1.6-2.3) mg/dL Total Bilirubin (0.2-1.3) mg/dL AST (14-36) U/L ALT (9-52) U/L Alkaline Phosphatase (38-126) U/L Ammonia (<30) umol/L Total Protein (6.3-8.2) g/dL Albumin (3.5-5.0) g/dL Crossmatch 03/13/18 03/13/18 03/13/18 Range/Units 05:40 05:45 05:45 WBC 13.9 H (3.8-10.6) k/uL RBC 3.11 L (3.80-5.40) m/uL Hgb 9.1 L (11.4-16.0) gm/dL Hct 28.7 L (34.0-46.0) % RDW 16.4 H (11.5-15.5) % Plt Count 121 L (150-450) k/uL Neutrophils # 11.6 H (1.3-7.7) k/uL Neutrophils # (Manual) (1.3-7.7) k/uL Lymphocytes # 0.8 L (1.0-4.8) k/uL Lymphocytes # (Manual) (1.0-4.8) k/uL Monocytes # 1.1 H (0-1.0) k/uL Monocytes # (Manual) (0-1.0) k/uL Myelocytes # (Manual) (0) k/uL Nucleated RBCs (0-0) /100 WBC PT (9.0-12.0) sec INR (<1.2) ABG pH 7.51 H (7.35-7.45) ABG pO2 70 L (83-108) mmHg ABG HCO3 31 H (21-25) mmol/L ABG Total CO2 33 H (19-24) mmol/L Sodium 146 H (137-145) mmol/L Potassium (3.5-5.1) mmol/L Chloride 108 H (98-107) mmol/L BUN 111 H* (7-17) mg/dL Creatinine 2.56 H (0.52-1.04) mg/dL Glucose 134 H (74-99) mg/dL POC Glucose (mg/dL) (75-99) mg/dL Phosphorus 6.0 H (2.5-4.5) mg/dL Magnesium 2.9 H (1.6-2.3) mg/dL Total Bilirubin 8.1 H (0.2-1.3) mg/dL AST 439 H (14-36) U/L ALT 1459 H (9-52) U/L Alkaline Phosphatase 167 H (38-126) U/L Ammonia (<30) umol/L Total Protein 5.3 L (6.3-8.2) g/dL Albumin 2.6 L (3.5-5.0) g/dL Crossmatch 03/13/18 03/13/18 03/13/18 Range/Units 05:45 05:45 07:58 WBC (3.8-10.6) k/uL RBC (3.80-5.40) m/uL Hgb (11.4-16.0) gm/dL Hct (34.0-46.0) % RDW (11.5-15.5) % Plt Count (150-450) k/uL Neutrophils # (1.3-7.7) k/uL Neutrophils # (Manual) (1.3-7.7) k/uL Lymphocytes # (1.0-4.8) k/uL Lymphocytes # (Manual) (1.0-4.8) k/uL Monocytes # (0-1.0) k/uL Monocytes # (Manual) (0-1.0) k/uL Myelocytes # (Manual) (0) k/uL Nucleated RBCs (0-0) /100 WBC PT 31.4 H (9.0-12.0) sec INR 3.5 H (<1.2) ABG pH (7.35-7.45) ABG pO2 (83-108) mmHg ABG HCO3 (21-25) mmol/L ABG Total CO2 (19-24) mmol/L Sodium (137-145) mmol/L Potassium (3.5-5.1) mmol/L Chloride (98-107) mmol/L BUN (7-17) mg/dL Creatinine (0.52-1.04) mg/dL Glucose (74-99) mg/dL POC Glucose (mg/dL) 153 H (75-99) mg/dL Phosphorus (2.5-4.5) mg/dL Magnesium (1.6-2.3) mg/dL Total Bilirubin (0.2-1.3) mg/dL AST (14-36) U/L ALT (9-52) U/L Alkaline Phosphatase (38-126) U/L Ammonia 122 H (<30) umol/L Total Protein (6.3-8.2) g/dL Albumin (3.5-5.0) g/dL Crossmatch Microbiology - Last 24 Hours (Table) 03/06/18 08:22 Blood Culture - Final Blood No Growth after 144 hours Assessment and Plan Plan: Assessment 1 cardiogenic shock with multisystem organ failure. Patient is off pressors yet she continues to have organ dysfunction with her being neurologically impaired on the unresponsive and despite some improvement in the liver function and the kidney function, the patient continues to show signs of ongoing organ impairment were to be an creatinine remains elevated and the patient's serum ammonia is high with coagulopathy suggestive of undergoing renal insufficiency and hepatic insufficiency. I think it encephalopathy is related to those. She remains on a Lasix drip at 10 mg an hour. She is intubated on a mechanical ventilator. 2 CHF with systolic heart failure and ejection fraction of 20-25% based on yesterday's echocardiogram. The patient also has global severe hypokinesis, left ventricle is moderately dilated, severe mitral regurgitation, severe three- vessel regurgitation, severe pulmonary hypertension, no significant inspiratory collapse of the IVC consistent with right-sided volume overload 3 acute hypoxic respiratory failure secondary to above, chest x-ray from today showing bilateral pleural effusion and heart failure and edema. 4 acute kidney injury secondary to above 5 acute shock liver secondary to above, 6 proximal atrial fibrillation , and the patient is currently in atrial fibrillation maintained on a Cardizem drip at 5 mg an hour 7 carotid artery disease with a previous left carotid endarterectomy 8 history of melanoma resected 9 coagulopathy post transfusion with fresh frozen plasma and the patient has a total of 10 units of fresh frozen plasma 10 altered mentation with diminished level of consciousness secondary to above- mentioned comorbidities 11 acute thrombocytopenia secondary to above, rule out underlying component of DIC 12 acute leukocytosis secondary to above. 13 acute elevation of the lipase questionable component of pancreatitis, improving 14 history of AICD placement 15 history of ESBL producing urine tract infection back in general 2017 with E. coli 16 chronic hypoxic respiratory failure and the patient is oxygen at 2 L per minute nasal cannula Plan This is a critically ill patient with shock state and multisystem organ failure. Patient is doing poorly. Despite some limited recovery, the patient has no significant chance of recovery. Have discussed this with the today who in turn will talk to the rest of the family and the patient will be probably in comfort care measures with the next 24 hours. Discussed case also with the primary care. Prognosis extremely poor. We'll continue supportive care until the final changing CODE STATUS. Time with Patient: Greater than 30
--- NOTE | 2018-03-13 11:16 | PN ---
PROGRESS NOTE Aga is a 72-year-old lady who is admitted to ICU with multiorgan failure, still intubated and on vent. She is not receiving any sedation and does not have any meaningful activity. She had episodes of atrial fibrillation with rapid ventricular rate and is currently on intravenous Cardizem. PHYSICAL EXAMINATION: On exam, the patient is unresponsive, intubated on vent. Chest exam reveals diminished air entry bilaterally. Heart exam reveals first and second heart sounds, irregular rhythm. No murmur. The patient is currently on Levophed for hypotension, on IV Cardizem for atrial fibrillation, on Lasix drip. Labs show that the hemoglobin is 9.1, potassium is 5, BUN is 111, creatinine is 2.5. INR is still elevated at 3.5. Liver enzymes are still elevated. ASSESSMENT: Acute exacerbation of chronic systolic heart failure, atrial fibrillation with rapid ventricular rate, multiorgan failure, liver failure, renal failure. Continue supportive care. Prognosis is guarded. MMODL / IJN: [id number] /
[2018-03-13 12:31] LABS: Glucose,Whole Blood 159 mg/dL (75-99)
[2018-03-13] MEDS: guaiFENesin 600 MG TABLET.ER PO SCH (12:49)
--- NOTE | 2018-03-13 12:50 | P.PN ---
Subjective Progress Note Date: 03/13/18 This is a 72 year-old female. Her primary care physician is Dr. Basil Crowell. Sees Dr. Real Jackson at [facility] She has a past medical history of hypertension, gastroesophageal reflux disease, carotid stenosis and non ischemic cardiomyopathy status post AICD with reported EF 30 -35 %, gout, anxiety and depression. She was recently hospitalized on June 08 following a fall secondary to dizziness with orthostatic changes ruled out. She ended up having a left radial fracture and left pelvic fracture. She was seen by orthopedics and they recommended splint and sling to the left arm and toe-touch weightbearing on the left lower extremity. Patient was again admitted on June 20 with confusion likely secondary to tramadol. She did present with history of passing out. AICD interrogation was done during the admission and found to have normal service function. Patient was again seen in 2017 with altered mental status sec to benzodiazepine which was held. Last seen on January for acute chest pain but stress test was negative Patisammn was admitted for bilateral pneumonia with CHF exacerbation. Patient comes in again with acute shortness of breath associated with cough with sputum production. Patient states she's been noticing reddish's phlegm production for the past 2 weeks. She states she was never well was discharged from the hospital. Patient had a follow-up appointment with Dr. Schaffer tomorrow but hasn't seen a primary care physician for the past 2 weeks. Patient received breathing treatments via EMS before coming to the hospital. There was slight improvement in symptoms on arrival to the ER but patient was found to be dyspneic in the ER. Vitas obtain suggested temp of 98.5, pulse rate 104, blood pressure 133/86, saturating well on 97% on 2 L which is patient' s baseline. Chest x-ray obtained suggested cardiomegaly and COPD but no consolidation with concern for pneumonia. Labs ordered suggestive hemoglobin 10.3 which is stable from the previous admissions. Her INR was 2.5 but patient is not on Coumadin. Also elevated was d-dimer 4.28. Creatinine is above the baseline of 1.2. LFTs were elevated with AST 1448, AST 1090, alkaline phosphatase 170. ProBNP elevated to 18,300. Troponin times 10.030 albumin 3.3. Based on patient's findings and symptoms there is a concern for pulmonary embolism though CTA cannot be ordered due to increased creatinine. V/Q scan ordered. Due to the hepatic congestion an acute elevation in liver enzymes liver ultrasound ordered to rule out cholecystitis/choledocholithiasis. Patient also complaining of significant shoulder pain and limited to the joint mobility likely secondary to arthritis. Pro-calcitonin ordered. Acute hepatitis panel ordered 03/07: Shoulder x-ray was negative. VQ scan shows multiple matching defects corresponds to intermediate probability of pulmonary embolism. Pulmonary is on consult. Patient has been seen by cardiology for acute exacerbation of chronic systolic heart failure with recommendations to continue IV Lasix. We did decrease Lasix to 40 mg IV daily. Echocardiogram report is pending. Patient is complaining of cough that is nonproductive and denies any blood in her cough. Robitussin added. Her shortness of breath is improved. Her pain in her shoulder is okay at this time. She does complain of nausea. Abdominal ultrasound showed probable tiny gallstones. Mild gallbladder wall thickening consistent with acute on chronic cholecystitis. No dilated ducts. Dr. Kaye plans no intervention at this time await GI evaluation. Patient is on a full liquid diet and fluid restriction of 2000 ML's added. 03/08: Last evening patient has not run off-colored 13 beats of V. tach and heart rate of 150-170. A Team was called and patient was in A. fib RVR. Patient was given IV magnesium and cardiology ordered Lopressor. A. fib was better controlled rate and started amiodarone bolus and protocol per Dr. Merino. Early this morning, another A Team was called for blood pressure of 56 /37 and patient was ordered for 500 mL bolus and transferred to ICU and started on vasopressors. Amiodarone drip was stopped. Patient required high-dose norepinephrine, lines were placed by Dr. Lauri Daley in, patient became lethargic and encephalopathy. Case discussed with the patient's and he wanted the patient intubated and patient was intubated and on mechanical ventilation. She was noted to have leukocytosis, anemia and thrombocytopenia, INR is greater than 10, liver function test are significantly elevated as well as CK and renal function. Amylase this morning was 114 and lipase 1053. 03/09: Patient remains intubated and on mechanical ventilation. She has been afebrile. She remains on norepinephrine. She is status post 2 unit packed RBCs as well as fresh frozen plasma. White count is down to 14.6, hemoglobin is 8.2 and platelet count is 94. Dr. Kaye has signed off the case as there is no evidence of abdominal sepsis. 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 Liver function tests are slightly improved from yesterday. INR this morning is 5.3. Patient is status post vitamin K yesterday and repeat today. 03/10: Patient had dilated unresponsive pupils this morning. CT of the brain showed stable exam and consider MRI. Patient remains intubated and on mechanical ventilation. Discussed with patient's family and they do not want her transferred to [facility]. Discussed also the patient's prognosis is poor and she is not heading in the right direction for improvement. She is on lower sedation. She continues on norepinephrine. She has been suctioned of blood from the oral cavity. Metoprolol was resumed yesterday for heart rate but her blood pressure did decrease somewhat. INR today is at 3.4, hemoglobin 7.7 and platelet count 80. She is receiving fresh frozen plasma today. Urine output is at 40 mL per hour. Temperature 90.4 axillary. 03/11: Patient is currently off sedation. There is a small amount of reaction to stimuli. She is on Cardizem drip for A. fib with RVR started last evening. Patient continues on low dose of norepinephrine. She is on meropenem. She remains intubated and on mechanical ventilation. Urine output has been running 40-50 mL/h. She has had continued mild improvement of her liver function tests. Family is considering comfort care. There is a family meeting scheduled with Dr. Lang. 03/12: Patient is currently off sedation. There is a small amount of reaction to stimuli. She is on Cardizem drip for A. fib rate is in the 70s at this time. Patient is no longer on vasopressors. She remains intubated and on mechanical ventilation urine output has been running 40-50 ML per hour. There has been a mild improvement to liver functions. Family met with Dr. Lang yesterday. Plan is to continue with current treatment until Wednesday, then a determination will be made to transition to comfort care. 03/13: Patient remains intubated and on mechanical ventilation, she continues to be off sedation at this time. There is minimal reaction to stimuli. Sinus rhythm noted on telemetry. Urine output has been about 40-50 ML per hour. Her ammonia level this morning 122. Liver and kidney function decline ALT 1459, PT 31.4, INR 3.5, BUN [address], [address] Lang and family continue to meet and discuss to transition patient to comfort care on Wednesday. Objective - Vital Signs Vital signs: Vital Signs Temp 97.8 F 03/13/18 08:00 Pulse 106 H 03/13/18 11:00 Resp 25 H 03/13/18 11:00 BP 104/56 03/12/18 14:00 Pulse Ox 93 L 03/13/18 11:00 Intake & Output 03/12/18 03/13/18 03/13/18 18:59 06:59 18:59 Intake Total 1416.167 836 248.25 Output Total 344 645 420 Balance 1072.167 191 -171.75 Weight 94.3 kg 94.1 kg Intake: IV 736 606 215 0.9 NS pressure bag 36 36 15 Dextrose 5%-0.9% NaCl 1, 180 000 ml @ 40 mls/hr IV . Q24H [facility] Rx#:[id number] Furosemide 250 mg In 20 40 Sodium Chloride 0.9% 225 ml @ 10 MG/HR 10 mls/hr IVP .Q24H [facility] Rx#: [id number] Magnesium Sulfate-D5w Pmx 200 1 gm In Dextrose/Water 1 100ml.bag @ 100 mls/hr IVPB Q1H [facility] Rx#: [id number] Meropenem 500 mg In 50 Sodium Chloride 0.9% 50 ml @ 100 mls/hr IVPB Q12HR [facility] Rx#:[id number] NS 300 480 200 Intake, IV Titration 60.167 0 33.25 Amount Diltiazem 50 mg In Sodium 60.167 0 33.25 Chloride 0.9% 40 ml @ 10 MG/HR 10 mls/hr IV .Q5H [facility] Rx#:[id number] Tube Feeding 310 230 Blood Product 310 Rc As-1 Unit 310 [id number] Output: Urine 344 645 420 Other: Voiding Method Indwelling Catheter Indwelling Catheter Indwelling Catheter ABP, PAP, CO, CI - Last Documented Arterial Blood Pressure 111/65 - Constitutional General appearance: Present: average body habitus, mild distress - EENT Eyes: Present: normal appearance - Neck Neck: Absent: lymphadenopathy, thyromegaly - Respiratory Respiratory: bilateral: diminished - Cardiovascular Rhythm: regular Heart sounds: normal: S1, S2 Abnormal Heart Sounds: Absent: systolic murmur, diastolic murmur - Gastrointestinal General gastrointestinal: Present: normal bowel sounds, soft. Absent: tenderness - Integumentary Integumentary: Present: pale. Absent: rash - Neurologic Neurologic Comment(s): Patient is intubated and unresponsive - Musculoskeletal Musculoskeletal Comment(s): Positive radial/pedal pulses, no clubbing noted - Labs CBC & Chem 7: 03/13/18 05:45 03/13/18 05:45 Labs: Abnormal Lab Results - Last 24 Hours (Table) 03/12/18 03/12/18 03/12/18 Range/Units 09:30 15:52 17:13 WBC (3.8-10.6) k/uL RBC (3.80-5.40) m/uL Hgb (11.4-16.0) gm/dL Hct (34.0-46.0) % RDW (11.5-15.5) % Plt Count (150-450) k/uL Neutrophils # (1.3-7.7) k/uL Neutrophils # (Manual) (1.3-7.7) k/uL Lymphocytes # (1.0-4.8) k/uL Lymphocytes # (Manual) (1.0-4.8) k/uL Monocytes # (0-1.0) k/uL Monocytes # (Manual) (0-1.0) k/uL Myelocytes # (Manual) (0) k/uL Nucleated RBCs (0-0) /100 WBC PT 31.3 H (9.0-12.0) sec INR 3.5 H (<1.2) ABG pH (7.35-7.45) ABG pO2 (83-108) mmHg ABG HCO3 (21-25) mmol/L ABG Total CO2 (19-24) mmol/L Sodium (137-145) mmol/L Potassium (3.5-5.1) mmol/L Chloride (98-107) mmol/L BUN (7-17) mg/dL Creatinine (0.52-1.04) mg/dL Glucose (74-99) mg/dL POC Glucose (mg/dL) 160 H (75-99) mg/dL Phosphorus (2.5-4.5) mg/dL Magnesium (1.6-2.3) mg/dL Total Bilirubin (0.2-1.3) mg/dL AST (14-36) U/L ALT (9-52) U/L Alkaline Phosphatase (38-126) U/L Ammonia (<30) umol/L Total Protein (6.3-8.2) g/dL Albumin (3.5-5.0) g/dL Crossmatch See Detail 03/12/18 03/12/18 03/12/18 Range/Units 18:20 18:20 20:26 WBC 11.5 H (3.8-10.6) k/uL RBC 3.05 L (3.80-5.40) m/uL Hgb 9.3 L D (11.4-16.0) gm/dL Hct 27.4 L (34.0-46.0) % RDW 16.5 H (11.5-15.5) % Plt Count 100 L (150-450) k/uL Neutrophils # (1.3-7.7) k/uL Neutrophils # (Manual) 9.78 H (1.3-7.7) k/uL Lymphocytes # (1.0-4.8) k/uL Lymphocytes # (Manual) 0.58 L (1.0-4.8) k/uL Monocytes # (0-1.0) k/uL Monocytes # (Manual) 1.15 H (0-1.0) k/uL Myelocytes # (Manual) 0.12 H (0) k/uL Nucleated RBCs 7 H (0-0) /100 WBC PT (9.0-12.0) sec INR (<1.2) ABG pH (7.35-7.45) ABG pO2 (83-108) mmHg ABG HCO3 (21-25) mmol/L ABG Total CO2 (19-24) mmol/L Sodium (137-145) mmol/L Potassium 5.6 H (3.5-5.1) mmol/L Chloride (98-107) mmol/L BUN 95 H (7-17) mg/dL Creatinine 2.58 H (0.52-1.04) mg/dL Glucose 145 H (74-99) mg/dL POC Glucose (mg/dL) 157 H (75-99) mg/dL Phosphorus (2.5-4.5) mg/dL Magnesium (1.6-2.3) mg/dL Total Bilirubin (0.2-1.3) mg/dL AST (14-36) U/L ALT (9-52) U/L Alkaline Phosphatase (38-126) U/L Ammonia (<30) umol/L Total Protein (6.3-8.2) g/dL Albumin (3.5-5.0) g/dL Crossmatch 03/13/18 03/13/18 03/13/18 Range/Units 00:20 04:07 05:40 WBC (3.8-10.6) k/uL RBC (3.80-5.40) m/uL Hgb (11.4-16.0) gm/dL Hct (34.0-46.0) % RDW (11.5-15.5) % Plt Count (150-450) k/uL Neutrophils # (1.3-7.7) k/uL Neutrophils # (Manual) (1.3-7.7) k/uL Lymphocytes # (1.0-4.8) k/uL Lymphocytes # (Manual) (1.0-4.8) k/uL Monocytes # (0-1.0) k/uL Monocytes # (Manual) (0-1.0) k/uL Myelocytes # (Manual) (0) k/uL Nucleated RBCs (0-0) /100 WBC PT (9.0-12.0) sec INR (<1.2) ABG pH 7.51 H (7.35-7.45) ABG pO2 70 L (83-108) mmHg ABG HCO3 31 H (21-25) mmol/L ABG Total CO2 33 H (19-24) mmol/L Sodium (137-145) mmol/L Potassium (3.5-5.1) mmol/L Chloride (98-107) mmol/L BUN (7-17) mg/dL Creatinine (0.52-1.04) mg/dL Glucose (74-99) mg/dL POC Glucose (mg/dL) 153 H 148 H (75-99) mg/dL Phosphorus (2.5-4.5) mg/dL Magnesium (1.6-2.3) mg/dL Total Bilirubin (0.2-1.3) mg/dL AST (14-36) U/L ALT (9-52) U/L Alkaline Phosphatase (38-126) U/L Ammonia (<30) umol/L Total Protein (6.3-8.2) g/dL Albumin (3.5-5.0) g/dL Crossmatch 03/13/18 03/13/18 03/13/18 Range/Units 05:45 05:45 05:45 WBC 13.9 H (3.8-10.6) k/uL RBC 3.11 L (3.80-5.40) m/uL Hgb 9.1 L (11.4-16.0) gm/dL Hct 28.7 L (34.0-46.0) % RDW 16.4 H (11.5-15.5) % Plt Count 121 L (150-450) k/uL Neutrophils # 11.6 H (1.3-7.7) k/uL Neutrophils # (Manual) (1.3-7.7) k/uL Lymphocytes # 0.8 L (1.0-4.8) k/uL Lymphocytes # (Manual) (1.0-4.8) k/uL Monocytes # 1.1 H (0-1.0) k/uL Monocytes # (Manual) (0-1.0) k/uL Myelocytes # (Manual) (0) k/uL Nucleated RBCs (0-0) /100 WBC PT 31.4 H (9.0-12.0) sec INR 3.5 H (<1.2) ABG pH (7.35-7.45) ABG pO2 (83-108) mmHg ABG HCO3 (21-25) mmol/L ABG Total CO2 (19-24) mmol/L Sodium 146 H (137-145) mmol/L Potassium (3.5-5.1) mmol/L Chloride 108 H (98-107) mmol/L BUN 111 H* (7-17) mg/dL Creatinine 2.56 H (0.52-1.04) mg/dL Glucose 134 H (74-99) mg/dL POC Glucose (mg/dL) (75-99) mg/dL Phosphorus 6.0 H (2.5-4.5) mg/dL Magnesium 2.9 H (1.6-2.3) mg/dL Total Bilirubin 8.1 H (0.2-1.3) mg/dL AST 439 H (14-36) U/L ALT 1459 H (9-52) U/L Alkaline Phosphatase 167 H (38-126) U/L Ammonia (<30) umol/L Total Protein 5.3 L (6.3-8.2) g/dL Albumin 2.6 L (3.5-5.0) g/dL Crossmatch 03/13/18 03/13/18 03/13/18 Range/Units 05:45 07:58 12:12 WBC (3.8-10.6) k/uL RBC (3.80-5.40) m/uL Hgb (11.4-16.0) gm/dL Hct (34.0-46.0) % RDW (11.5-15.5) % Plt Count (150-450) k/uL Neutrophils # (1.3-7.7) k/uL Neutrophils # (Manual) (1.3-7.7) k/uL Lymphocytes # (1.0-4.8) k/uL Lymphocytes # (Manual) (1.0-4.8) k/uL Monocytes # (0-1.0) k/uL Monocytes # (Manual) (0-1.0) k/uL Myelocytes # (Manual) (0) k/uL Nucleated RBCs (0-0) /100 WBC PT (9.0-12.0) sec INR (<1.2) ABG pH (7.35-7.45) ABG pO2 (83-108) mmHg ABG HCO3 (21-25) mmol/L ABG Total CO2 (19-24) mmol/L Sodium (137-145) mmol/L Potassium (3.5-5.1) mmol/L Chloride (98-107) mmol/L BUN (7-17) mg/dL Creatinine (0.52-1.04) mg/dL Glucose (74-99) mg/dL POC Glucose (mg/dL) 153 H 159 H (75-99) mg/dL Phosphorus (2.5-4.5) mg/dL Magnesium (1.6-2.3) mg/dL Total Bilirubin (0.2-1.3) mg/dL AST (14-36) U/L ALT (9-52) U/L Alkaline Phosphatase (38-126) U/L Ammonia 122 H (<30) umol/L Total Protein (6.3-8.2) g/dL Albumin (3.5-5.0) g/dL Crossmatch Microbiology - Last 24 Hours (Table) 03/06/18 08:22 Blood Culture - Final Blood No Growth after 144 hours Assessment and Plan Plan: #1 acute on chronic hypoxic respiratory failure secondary to acute on chronic systolic heart failure, pulmonary edema, mild intermittent asthma without exacerbation. No signs of pneumonia. Patient had further decline of her respiratory status and required intubation and mechanical ventilation. Off Lasix, off Solu-Medrol, monitor input and output and daily weight. Continue DuoNeb as needed for shortness of breath. #2 acute kidney injury with CKD3, metabolic acidosis and hyperkalemia. Patient continues shows decline in kidney function. #3 acute transaminitis with increase in alkaline phosphatase. Ultrasound abdomen reveals acute on chronic cholecystitis. Hepatic congestion likely secondary to CHF. Continue meropenem. #4 acute on chronic systolic heart failure with known ejection fraction noted to be 30-35% in January 2018, status post AICD which was interrogated in January 2018. #5 cardiogenic shock with multiorgan failure requiring intubation and mechanical ventilation, vasopressors support. Patient is managed in the intensive care unit by Dr. Lang. Patient is currently on sodium bicarb drip #6. Paroxysmal Atrial fibrillation on xarelto rate controlled currently in sinus rhythm. Episodes of A. fib last night Cardizem drip added patient converted to sinus rhythm Cardizem DC'd. #7 QT prolongation watch for QT prolongation medication avoid Zofran, levofloxacin and other, and QT prolonging medications . #8 hematemesis versus hemoptysis appears chronic. Continue Protonix #9 recurrent depression continue citalopram 40 mg by mouth daily at bedtime #10 gout stable continue allopurinol #11 generalized anxiety disorder continue Xanax 0.5 daily 1 mg at bedtime #12 DVT prophylaxis patient on xarelto #13 GI prophylaxis with Protonix #14 history of mild intermittent asthma, no documented history of COPD. #15. Thrombocytopenia due to cardiogenic shock. #16 DIC secondary to cardiogenic shock. #17 multiorgan failure with acute kidney injury, acute respiratory failure, shock liver, thrombocytopenia and leukocytosis. #18 metabolic encephalopathy secondary to multiple medical problems. Prognosis guarded
[2018-03-13] MEDS ORDERED: MORPHINE SULFATE 4 MG/ML SYRINGE IVP PRN (13:15)
[2018-03-13] MEDS ORDERED: HYDROmorphone 1 MG/ML 1 ML SYRINGE IVP PRN (13:45)
[2018-03-13 14:03] VITALS: PULSE 117; RESP 26
[2018-03-13] MEDS ORDERED: LACTULOSE 20 GM/30 ML CUP PO SCH (16:00)
--- NOTE | 2018-03-13 17:01 | PN ---
PROGRESS NOTE The patient is seen for followup for acute kidney injury. Since yesterday, patient's renal function has deteriorated. Urine output has decreased. She was started on Lasix drip. Serum creatinine is up to 2.56. Hemoglobin had dropped again yesterday to 6.3, it is up to 9.1. The patient remains on the vent. Levophed is at about 3 mcg. PHYSICAL EXAMINATION: Blood pressure is 106/64, heart rate 100 per minute. She is afebrile. Examination of the heart S1, S2. Examination of the lungs bilateral breath sounds are heard. Abdomen is soft, nontender. Exam of lower extremities shows edema 1+ bilaterally, upper and lower extremities. LAB: Show sodium of 146, potassium 5.0, chloride 108, BUN 111, serum creatinine 2.56. ASSESSMENT: 1. Acute kidney injury secondary to hypotension, hypoperfusion, shock. Renal function improved, but worse again over the last couple of days secondary to hemodynamic instability with atrial fibrillation. Currently, patient is maintained on Lasix drip. Urine output is at about 90-70 mL an hour. We can continue with the Lasix drip for now. 2. Coagulopathy status post transfusion again yesterday. No active bleeding noted. 3. Encephalopathy. 4. Congestive heart failure with ejection fraction of about 20-25 percent. PLAN: May continue with the Lasix drip. Overall prognosis is poor. MMODL / IJN: [id number] /
--- NOTE | 2018-03-15 15:03 | P.DS ---
Providers Date of admission: 03/06/18 11:28 Expected date of discharge: 03/13/18 Attending physician: Keisha Thornton MD Consults: 03/06/18 11:28 Consult Physician Routine Consulting Provider: Zeny Loera Consult Reason/Comments: CHF Do you want consulting provider notified?: Yes 03/06/18 14:45 Consult Physician Routine Consulting Provider: Yovanny Mejia Consult Reason/Comments: hemoptysis Do you want consulting provider notified?: Yes 03/06/18 18:29 Consult Physician Routine Consulting Provider: Leslye Zheng Consult Reason/Comments: acute and chronic cholycystitis Do you want consulting provider notified?: Yes, Notify in am 03/06/18 18:30 Consult Physician Routine Consulting Provider: Ben Kaye Consult Reason/Comments: acute / chronic cholycystitis Do you want consulting provider notified?: Yes, Notify in am 03/07/18 07:54 Consult Physician Routine Consulting Provider: Rashard Stone Consult Reason/Comments: Elevated liver enzymes Do you want consulting provider notified?: Yes 03/08/18 09:53 Consult Physician Routine Consulting Provider: Diane Portillo Consult Reason/Comments: NARA Do you want consulting provider notified?: Yes 03/08/18 10:35 Consult Physician Urgent Consulting Provider: Diane Portillo Consult Reason/Comments: elevated creatinine/lactic acid Do you want consulting provider notified?: Yes Primary care physician: [place] [facility] Hospital Course: This is a 72 year-old female. Her primary care physician is Dr. Basil Crowell. Sees Dr. Real Jackson at [facility] She has a past medical history of hypertension, gastroesophageal reflux disease, carotid stenosis and non ischemic cardiomyopathy status post AICD with reported EF 30 -35 %, gout, anxiety and depression. She was recently hospitalized on June 08 following a fall secondary to dizziness with orthostatic changes ruled out. She ended up having a left radial fracture and left pelvic fracture. She was seen by orthopedics and they recommended splint and sling to the left arm and toe-touch weightbearing on the left lower extremity. Patient was again admitted on June 20 with confusion likely secondary to tramadol. She did present with history of passing out. AICD interrogation was done during the admission and found to have normal service function. Patient was again seen in 2017 with altered mental status sec to benzodiazepine which was held. Last seen on January for acute chest pain but stress test was negative Emely was admitted for bilateral pneumonia with CHF exacerbation. Patient comes in again with acute shortness of breath associated with cough with sputum production. Patient states she's been noticing reddish's phlegm production for the past 2 weeks. She states she was never well was discharged from the hospital. Patient had a follow-up appointment with Dr. Schaffer tomorrow but hasn't seen a primary care physician for the past 2 weeks. Patient received breathing treatments via EMS before coming to the hospital. There was slight improvement in symptoms on arrival to the ER but patient was found to be dyspneic in the ER. Vitas obtain suggested temp of 98.5, pulse rate 104, blood pressure 133/86, saturating well on 97% on 2 L which is patient' s baseline. Chest x-ray obtained suggested cardiomegaly and COPD but no consolidation with concern for pneumonia. Labs ordered suggestive hemoglobin 10.3 which is stable from the previous admissions. Her INR was 2.5 but patient is not on Coumadin. Also elevated was d-dimer 4.28. Creatinine is above the baseline of 1.2. LFTs were elevated with AST 1448, AST 1090, alkaline phosphatase 170. ProBNP elevated to 18,300. Troponin times 10.030 albumin 3.3. Based on patient's findings and symptoms there is a concern for pulmonary embolism though CTA cannot be ordered due to increased creatinine. V/Q scan ordered. Due to the hepatic congestion an acute elevation in liver enzymes liver ultrasound ordered to rule out cholecystitis/choledocholithiasis. Patient also complaining of significant shoulder pain and limited to the joint mobility likely secondary to arthritis. Pro-calcitonin ordered. Acute hepatitis panel ordered 03/07: Shoulder x-ray was negative. VQ scan shows multiple matching defects corresponds to intermediate probability of pulmonary embolism. Pulmonary is on consult. Patient has been seen by cardiology for acute exacerbation of chronic systolic heart failure with recommendations to continue IV Lasix. We did decrease Lasix to 40 mg IV daily. Echocardiogram report is pending. Patient is complaining of cough that is nonproductive and denies any blood in her cough. Robitussin added. Her shortness of breath is improved. Her pain in her shoulder is okay at this time. She does complain of nausea. Abdominal ultrasound showed probable tiny gallstones. Mild gallbladder wall thickening consistent with acute on chronic cholecystitis. No dilated ducts. Dr. Kaye plans no intervention at this time await GI evaluation. Patient is on a full liquid diet and fluid restriction of 2000 ML's added. 03/08: Last evening patient has not run off-colored 13 beats of V. tach and heart rate of 150-170. A Team was called and patient was in A. fib RVR. Patient was given IV magnesium and cardiology ordered Lopressor. A. fib was better controlled rate and started amiodarone bolus and protocol per Dr. Merino. Early this morning, another A Team was called for blood pressure of 56 /37 and patient was ordered for 500 mL bolus and transferred to ICU and started on vasopressors. Amiodarone drip was stopped. Patient required high-dose norepinephrine, lines were placed by Dr. Lauri Daley in, patient became lethargic and encephalopathy. Case discussed with the patient's and he wanted the patient intubated and patient was intubated and on mechanical ventilation. She was noted to have leukocytosis, anemia and thrombocytopenia, INR is greater than 10, liver function test are significantly elevated as well as CK and renal function. Amylase this morning was 114 and lipase 1053. 03/09: Patient remains intubated and on mechanical ventilation. She has been afebrile. She remains on norepinephrine. She is status post 2 unit packed RBCs as well as fresh frozen plasma. White count is down to 14.6, hemoglobin is 8.2 and platelet count is 94. Dr. Kaye has signed off the case as there is no evidence of abdominal sepsis. 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 Liver function tests are slightly improved from yesterday. INR this morning is 5.3. Patient is status post vitamin K yesterday and repeat today. 03/10: Patient had dilated unresponsive pupils this morning. CT of the brain showed stable exam and consider MRI. Patient remains intubated and on mechanical ventilation. Discussed with patient's family and they do not want her transferred to [facility]. Discussed also the patient's prognosis is poor and she is not heading in the right direction for improvement. She is on lower sedation. She continues on norepinephrine. She has been suctioned of blood from the oral cavity. Metoprolol was resumed yesterday for heart rate but her blood pressure did decrease somewhat. INR today is at 3.4, hemoglobin 7.7 and platelet count 80. She is receiving fresh frozen plasma today. Urine output is at 40 mL per hour. Temperature 90.4 axillary. 03/11: Patient is currently off sedation. There is a small amount of reaction to stimuli. She is on Cardizem drip for A. fib with RVR started last evening. Patient continues on low dose of norepinephrine. She is on meropenem. She remains intubated and on mechanical ventilation. Urine output has been running 40-50 mL/h. She has had continued mild improvement of her liver function tests. Family is considering comfort care. There is a family meeting scheduled with Dr. Lang. 03/12: Patient is currently off sedation. There is a small amount of reaction to stimuli. She is on Cardizem drip for A. fib rate is in the 70s at this time. Patient is no longer on vasopressors. She remains intubated and on mechanical ventilation urine output has been running 40-50 ML per hour. There has been a mild improvement to liver functions. Family met with Dr. Lang yesterday. Plan is to continue with current treatment until Wednesday, then a determination will be made to transition to comfort care. 03/13: Patient remains intubated and on mechanical ventilation, she continues to be off sedation at this time. There is minimal reaction to stimuli. Sinus rhythm noted on telemetry. Urine output has been about 40-50 ML per hour. Her ammonia level this morning 122. Liver and kidney function decline ALT 1459, PT 31.4, INR 3.5, BUN [address], [address] Lang and family continue to meet and discuss to transition patient to comfort care on Wednesday. Patient on March 13. Please see nursing documentation for details. Discharge diagnoses: 1. Acute on chronic hypoxic respiratory failure secondary to acute on chronic systolic heart failure, pulmonary edema, mild intermittent asthma without exacerbation. No signs of pneumonia. Patient required intubation and mechanical ventilation. 2. Acute kidney injury with CKD3, metabolic acidosis and hyperkalemia. 3. Acute transaminitis with increase in alkaline phosphatase and dairy to acute on chronic cholecystitis and hepatic congestion likely secondary to CHF. 4. Acute on chronic systolic heart failure with EF 20-25% status post AICD 5. Cardiogenic shock with multiorgan failure requiring intubation and mechanical ventilation, vasopressors support. 6. Paroxysmal Atrial fibrillation 7. Multiorgan failure with acute kidney injury, acute respiratory failure, shock liver, thrombocytopenia and leukocytosis. 8. DIC secondary to cardiogenic shock. 9. Thrombocytopenia due to cardiogenic shock. 10. Metabolic encephalopathy secondary to multiple medical problems. 11. Hematemesis appears chronic. 12. Recurrent depression 13. Gout stable 12. Generalized anxiety disorder 13. History of mild intermittent asthma, no documented history of COPD. 14. QT prolongation, present on admission Impression and plan of care have been directed as dictated by the signing physician. Nancy Olivera nurse practitioner acting as scribe for signing physician. Patient Condition at Discharge: Undetermined Plan - Discharge Summary New Discharge Prescriptions: No Action Citalopram Hydrobromide [CeleXA] 40 mg PO HS@2100 Rivaroxaban [Xarelto] 20 mg PO DAILY Ranitidine HCl [Zantac] 150 mg PO BID Spironolactone 50 mg PO DAILY Potassium Chloride ER [K-Dur 20] 40 meq PO DAILY Aspirin EC [Ecotrin Low Dose] 81 mg PO DAILY Sennosides-Docusate Sodium [Senokot-S] 1 tab PO BID Torsemide [Demadex] 80 mg PO DAILY Allopurinol [Zyloprim] 100 mg PO DAILY ALPRAZolam [Xanax] 2 mg PO HS PRN PRN Reason: Anxiety Metoprolol Succinate (ER) [Toprol XL] 25 mg PO DAILY #30 tab.er.24h Discharge Medication List Citalopram Hydrobromide [CeleXA] 40 mg PO HS@2100 07/16/14 [History] Ranitidine HCl [Zantac] 150 mg PO BID 06/27/16 [History] Rivaroxaban [Xarelto] 20 mg PO DAILY 06/27/16 [History] Aspirin EC [Ecotrin Low Dose] 81 mg PO DAILY 08/23/17 [History] Potassium Chloride ER [K-Dur 20] 40 meq PO DAILY 08/23/17 [History] Sennosides-Docusate Sodium [Senokot-S] 1 tab PO BID 08/23/17 [History] Spironolactone 50 mg PO DAILY 08/23/17 [History] Torsemide [Demadex] 80 mg PO DAILY 08/23/17 [History] ALPRAZolam [Xanax] 2 mg PO HS PRN 01/12/18 [History] Allopurinol [Zyloprim] 100 mg PO DAILY 01/12/18 [History] Metoprolol Succinate (ER) [Toprol XL] 25 mg PO DAILY #30 tab.er.24h 01/13/18 [Rx ] Follow up Appointment(s)/Referral(s): [facility], [NON-STAFF] - Basil Crowell DO [Primary Care Provider] - 1-2 days Discharge Disposition: - Preliminary Cause of Preliminary Cause of : Cardiogenic shock with multiorgan failure
== END 2018-03-13 18:54 | disposition expired | DRG 291 ==
LOC: EC 07:43 → 6SEL 11:28 → 6ICU 03-08 04:43
PROVIDERS: ADMIT Internal Medicine; ATTEND Internal Medicine
PROC: 0BH18EZ Insertion of Endotracheal Airway into Trachea, Via Natural or Artificial Opening Endoscopic (ICD-10-PCS; principal; 2018-03-08)
PROC: 06HM33Z Insertion of Infusion Device into Right Femoral Vein, Percutaneous Approach (ICD-10-PCS; principal; 2018-03-08)
PROC: 30233L1 Transfusion of Nonautologous Fresh Plasma into Peripheral Vein, Percutaneous Approach (ICD-10-PCS; principal; 2018-03-08)
PROC: 5A1955Z Respiratory Ventilation, Greater than 96 Consecutive Hours (ICD-10-PCS; principal; 2018-03-08)
PROC: 30233N1 Transfusion of Nonautologous Red Blood Cells into Peripheral Vein, Percutaneous Approach (ICD-10-PCS; principal; 2018-03-08)
DX: I13.0 Hypertensive heart and chronic kidney disease with heart failure and stage 1 through stage 4 chronic kidney disease, or unspecified chronic kidney disease (principal); A41.9 Sepsis, unspecified organism; R65.21 Severe sepsis with septic shock; J96.21 Acute and chronic respiratory failure with hypoxia; K72.00 Acute and subacute hepatic failure without coma; N17.0 Acute kidney failure with tubular necrosis; I50.23 Acute on chronic systolic (congestive) heart failure; G93.40 Encephalopathy, unspecified; D62 Acute posthemorrhagic anemia; D68.9 Coagulation defect, unspecified; E87.4 Mixed disorder of acid-base balance; F33.9 Major depressive disorder, recurrent, unspecified; J44.1 Chronic obstructive pulmonary disease with (acute) exacerbation; K80.12 Calculus of gallbladder with acute and chronic cholecystitis without obstruction; K92.2 Gastrointestinal hemorrhage, unspecified; Z99.11 Dependence on respirator [ventilator] status; D69.59 Other secondary thrombocytopenia; E83.39 Other disorders of phosphorus metabolism; E87.5 Hyperkalemia; E87.6 Hypokalemia; F41.1 Generalized anxiety disorder; Z51.5 Encounter for palliative care; G89.29 Other chronic pain; I08.1 Rheumatic disorders of both mitral and tricuspid valves; I25.5 Ischemic cardiomyopathy; I27.20 Pulmonary hypertension, unspecified; I48.2 Chronic atrial fibrillation; K21.9 Gastro-esophageal reflux disease without esophagitis; K76.1 Chronic passive congestion of liver; M10.9 Gout, unspecified; M19.011 Primary osteoarthritis, right shoulder; R57.0 Cardiogenic shock; Z79.01 Long term (current) use of anticoagulants; Z79.82 Long term (current) use of aspirin; Z85.820 Personal history of malignant melanoma of skin; Z86.19 Personal history of other infectious and parasitic diseases; Z87.01 Personal history of pneumonia (recurrent); Z87.891 Personal history of nicotine dependence; Z90.710 Acquired absence of both cervix and uterus; Z95.810 Presence of automatic (implantable) cardiac defibrillator; Z99.81 Dependence on supplemental oxygen; Z79.899 Other long term (current) drug therapy; Z88.1 Allergy status to other antibiotic agents; Z88.5 Allergy status to narcotic agent; Z88.8 Allergy status to other drugs, medicaments and biological substances; Z98.51 Tubal ligation status; N18.3 Chronic kidney disease, stage 3 (moderate)
CPT/HCPCS: 36415; 70450; 71045; 71046; 76705; 78582; 80048; 80053; 80074; 80202; 81001; 82140; 82150; 82550; 82553; 82565; 82728; 82805; 83036; 83540; 83550; 83605; 83690; 83735; 83880; 84100; 84132; 84145; 84450; 84460; 84484; 85025; 85379; 85610; 85730; 86850; 86900; 86901; 86920; 87040; 87070; 87086; 87205; 93005; 93306; 94002; 94003; 94640; 94760; 96374; 96375; 99291